=== PATIENT | female | born 1935 | race American Indian/Alaskan Native ===

== ENCOUNTER 2016-05-22 12:21 | Emergency (ER) | payer MEDICARE ==
[2016-05-22 13:15] LABS: Hematocrit 37.8 % (30.3-42.9); Hemoglobin 12.5 gm/dl (10.1-14.3); Mean Corpuscular HGB Conc 33 % (30-34); Mean Corpuscular Hemoglobin 32 pg (28-32); Mean Corpuscular Volume 96 fl (79-97); Platelet Count 118 K/mm3 (140-440); Red Blood Count 3.96 M/mm3 (3.65-5.03); Red Cell Distribution Width 13.9 % (13.2-15.2)
[2016-05-22 13:36] LABS: Alanine Aminotransferase 14 units/L (7-56); Albumin 3.9 g/dL (3.9-5); Albumin/Globulin Ratio 1.3 %; Alkaline Phosphatase 110 units/L (35-129); Anion Gap 18 mmol/L; BUN/Creatinine Ratio 15.71; Bilirubin,Total 0.7 mg/dL (0.1-1.2); Blood Urea Nitrogen 11 mg/dL (7-17); Calcium 8.8 mg/dL (8.4-10.2); Carbon Dioxide 24 mmol/L (22-30); Chloride 101.3 mmol/L (98-107); Glucose 142 mg/dL (65-100); Lipase 14 units/L (13-60); Potassium 3.9 mmol/L (3.6-5.0); Sodium 139 mmol/L (137-145); Total Protein 6.9 g/dL (6.3-8.2)
--- NOTE | 2016-05-22 13:47 | XRay Report ---
CHEST 2 VIEWS INDICATION: Cough, fever. COMPARISON: 05/17/2016 FINDINGS: Frontal and lateral chest radiographs again demonstrate limited inspiration and mild exaggerated cardiomediastinal silhouette. Slight fluid or thickening along the right minor fissure again noted. Mild bibasilar atelectasis. Aortic knob calcifications. No significant pleural effusions or CHF. Demineralized bones with moderate thoracic spine degenerative changes. CONCLUSION: No significant acute chest process or interval change, as described. Thank you for the opportunity to participate in this patient's care.
[2016-05-22 14:10] LABS: Anisocytosis 1+; Basophils % (Manual) 0 % (0.0-1.8); Blastocytes % (Manual) 0 %; Diff Status Complete; Eosinophils % (Manual) 0 % (0.0-4.3)
[2016-05-22] MEDS ORDERED: NORMODYNE IV ONE (20:12)
[2016-05-22] MEDS ORDERED: TYLENOL PO ONE (20:13)
--- NOTE | 2016-05-22 20:54 | Emergency Department Report ---
HPI - General Chief Complaint: Chest Pain Time Seen by Provider: 05/22/16 19:49 - HPI HPI: This is a 80-year-old Afro-[place] female presents the emergency department with the complaint of a one-week history of lower abdominal discomfort. It is associated with some nausea and vomiting. Through triage patient complain more of some generalized fatigue, a productive cough and some chest discomfort. However when I asked the patient about that she says that it is "every once in a while" and that she has "given up on that." Patient presents with a fever admits to feeling feverish with chills and sweats but has not checked her temperature. She has a past medical history of arthritis, asthma, diabetes, GERD, hypertension. She presents with very elevated blood pressure but says that she has been compliant with her medications. She does not currently have a primary care doctor. No recent travel or sick contacts at home. ED Past Medical Hx - Past Medical History Hx Hypertension: Yes Hx Heart Attack/AMI: No Hx Congestive Heart Failure: No Hx Diabetes: Yes Hx Deep Vein Thrombosis: No Hx Pulmonary Embolism: No Hx GERD: Yes Hx Liver Disease: No Hx Renal Disease: No Hx Sickle Cell Disease: No Hx Arthritis: Yes Hx Kidney Stones: No Hx Asthma: Yes Hx COPD: No Hx Tuberculosis: No Hx HIV: No Additional medical history: has had transfusions in the past, Gi bleed - Surgical History Hx Coronary Stent: Yes Hx Open Heart Surgery: No Hx Pacemaker: No Hx Internal Defibrillator: No Hx Cholecystectomy: No Hx Appendectomy: No Hx Breast Surgery: No Additional Surgical History: hysterectomy, bilateral knee surgery, - Social History Smoking Status: Never Smoker Substance Use Type: None - Medications Home Medications: Home Medications Medication Instructions Recorded Confirmed Last Taken Type Nitroglycerin [Nitrostat] 0.4 mg SUBLINGUAL Q5MIN PRN 07/16/13 04/01/16 History Latanoprost 0.005% [Xalatan 0.005%] 1 drop OU QPM 10/23/13 04/01/16 06/22/14 History Budesonide [Pulmicort Respules] 0.5 mg IH Q12HRT #30 nebu 02/12/15 04/01/16 Unknown Rx oxyCODONE /ACETAMINOPHEN [Percocet 1 tab PO Q6H PRN #14 tablet 02/12/15 Unknown Rx 5/325 mg] Atenolol [Tenormin] 25 mg PO BID #60 tablet 10/03/15 04/01/16 Unknown Rx Clopidogrel Bisulfate [Plavix] 75 mg PO DAILY #30 tablet 10/03/15 04/01/16 Unknown Rx Famotidine [Pepcid] 20 mg PO BID #60 tablet 10/03/15 04/01/16 Unknown Rx ISOSORBIDE MONOnitrate [Imdur ER] 60 mg PO QDAY #30 tablet 10/03/15 05/17/16 Unknown Rx Insulin NPH/Regular [NovoLIN 70/30] 20 unit SUB-Q BID #30 cc 10/03/15 04/01/16 Unknown Rx Lisinopril [Zestril TAB] 20 mg PO QDAY #30 tablet 10/03/15 04/01/16 Unknown Rx Ciprofloxacin HCl [Ciprofloxacin 500 mg PO Q12H #10 tab 02/06/16 04/01/16 Unknown Rx TAB] metroNIDAZOLE [Flagyl TAB] 500 mg PO Q8HR #15 tablet 02/06/16 05/17/16 Unknown Rx AtorvaSTATin [Lipitor] 40 mg PO QHS #30 tablet 04/02/16 Unknown Rx HYDROcodone/APAP 5-325 [[place] 1 each PO Q6HR PRN #14 tablet 05/18/16 Unknown Rx 5/325] Pantoprazole [Protonix TAB] 40 mg PO QDAY #30 tablet 05/18/16 Unknown Rx Promethazine [Phenergan TAB] 25 mg PO Q6HR PRN #20 tab 05/18/16 Unknown Rx ED Review of Systems ROS: Stated complaint: DIZZINESS/CHEST PAINS Other details as noted in HPI Constitutional: chills, fever Eyes: denies: eye pain, eye discharge, vision change ENT: denies: ear pain, throat pain Respiratory: cough. denies: orthopnea Cardiovascular: chest pain. denies: edema Gastrointestinal: abdominal pain, nausea, vomiting Genitourinary: denies: urgency, dysuria, discharge Musculoskeletal: denies: back pain, joint swelling, arthralgia Skin: denies: rash, lesions Neurological: denies: headache, numbness Physical Exam - Physical Exam Vital Signs: Vital Signs 05/22/16 12:52 Temperature 101.4 F H Pulse Rate 90 Respiratory 20 Rate Blood Pressure 171/92 O2 Sat by Pulse 99 Oximetry Physical Exam: GENERAL: The patient is well-developed well-nourished. HEENT: Normocephalic. Atraumatic. Extraocular motions are intact. Patient has moist mucous membranes. Pupils equal reactive to light bilaterally. NECK: Supple. Trachea is midline. CHEST/LUNGS: Clear to auscultation. There is no respiratory distress noted. HEART/CARDIOVASCULAR: Regular. There is no tachycardia. There is no gallop rub or murmur. ABDOMEN: Abdomen is soft. Mild reproducible lower quadrant abdominal tenderness to palpation. No guarding or rebound tenderness. No peritoneal signs. Patient has normal bowel sounds. There is no abdominal distention. SKIN: Warm and dry. NEURO: The patient is awake, alert, and oriented. The patient is cooperative. The patient has no focal neurologic deficits. The patient has normal speech and gait. MUSCULOSKELETAL: There is no tenderness or deformity. There is no limitation range of motion. There is no evidence of acute injury. ED Course Vital Signs 05/22/16 12:52 Temperature 101.4 F H Pulse Rate 90 Respiratory 20 Rate Blood Pressure 171/92 O2 Sat by Pulse 99 Oximetry ED Medical Decision Making - Lab Data Result diagrams: 05/22/16 13:05 05/22/16 13:05 - EKG Data -: EKG Interpreted by Me EKG shows normal: sinus rhythm, axis, intervals, QRS complexes, ST-T waves (T- wave inversions to the lateral leads) Rate: normal - EKG Data When compared to previous EKG there are: no significant change Interpretation: unchanged when compared t (05/17/16) - Radiology Data Radiology results: report reviewed, image reviewed interpreted by me: Chest x-ray did not show any acute process. Heart is normal shape and size. No effusions. No pneumothorax. No signs of pneumonia seen. Abdominal x-ray does not show any acute process. Nonobstructive non-specific bowel gas. CT of the abdomen and pelvis without contrast shows diverticulosis. There is a normal-appearing appendix. There is not evidence of any bowel change. No free fluid or inflammatory changes seen in the abdomen or pelvis. Subsequent centimeters soft tissue nodular focus is seen in the left breast. This would be better correlated with dedicated mammography. - Medical Decision Making 80-year-old female presents to the emergency department with acute on chronic chest discomfort that is more of a burning sensation, as well as some lower abdominal discomfort. Regarding the patient's chest pain, she was just here 6 days ago with similar symptoms and was diagnosed with GERD. In the past year the patient has had a stable heart catheterization, negative stress test and had a cardio consultation less than 2 months ago during an admission here. She follows with Dr. De Paz. She does not have any shortness of breath. She has had negative troponins 3. EKG does not show any signs of ST elevation SD. Regarding the patient's abdominal pain, it is lower abdomen discomfort and reproducible to palpation. Patient's labs have been mostly unremarkable. Normal belly labs and no urinary tract infection. Patient had a CT of the abdomen and pelvis that shows diverticulosis but otherwise no acute intra- abdominal or pelvic pathology. Patient did have a fever with a MAXIMUM TEMPERATURE of 101 when she first arrived. She was given some Tylenol and has come down to a normal level. There is no focus of fever seen on physical exam and no etiology found with the labs or imaging. Patient is been reevaluated multiple times for multiple hours and says she is feeling much better. Vital signs stable throughout her ED course. Patient be discharged home to follow-up with her primary care doctor and her market research assistant. She will return to the ER with any worsening or symptoms or any acute distress. - Differential Diagnosis GERD, SD, costochondritis, colitis, diverticulitis, pneumonia Critical Care Time: No Critical care attestation.: If time is entered above; I have spent that time in minutes in the direct care of this critically ill patient, excluding procedure time. ED Disposition Clinical Impression: Abdominal pain Qualifiers: Abdominal location: generalized Qualified Code(s): R10.84 - Generalized abdominal pain GERD (gastroesophageal reflux disease) Qualifiers: Esophagitis presence: esophagitis presence not specified Qualified Code(s): K21.9 - Gastro-esophageal reflux disease without esophagitis HTN (hypertension) Qualifiers: Hypertension type: essential hypertension Qualified Code(s): I10 - Essential ( primary) hypertension Disposition: DISCHARGED TO HOME OR SELFCARE Is pt being admited?: No Condition: Stable Instructions: Chest Pain (ED), Gastroesophageal Reflux Disease (ED), Hypertension (ED) Additional Instructions: Please follow-up with your primary care doctor and her market research assistant in the next few days. Return to the emergency department with any worsening of her symptoms or any acute distress. Referrals: PRIMARY CARE, [Primary Care Provider] - 3-5 Days MISA DE PAZ MD [Staff Physician] - 3-5 Days Time of Disposition: 00:36
[2016-05-22 22:23] LABS: Bilirubin,Urine NEG (Negative); Blood,Urine NEG (Negative); Ketones,Urine 20 mg/dL (Negative); Leukocyte Esterase,Urine NEG (Negative); Mucus,Urine FEW /HPF; Nitrite,Urine NEG (Negative); Urobilinogen,Urine < 2.0 mg/dL (<2.0); WBC,Urine < 1.0 /HPF (0.0-6.0)
[2016-05-22] MEDS ORDERED: NACL ONE (23:09)
--- NOTE | 2016-05-23 00:05 | Cat Scan Report ---
FINAL REPORT EXAM: CT ABDOMEN PELVIS WO CON HISTORY: Abd pain TECHNIQUE: Serial axial images through the abdomen and pelvis with coronal and sagittal reconstruction. PRIORS: CT scan from 02/03/2016 FINDINGS: Linear densities are seen in the lung bases, consistent with scarring or atelectasis. No pleural effusion is seen. There is an 8 millimeter soft tissue nodule in the left breast. This can be seen in series 3, image 38. Punctate calcified granulomata are seen in the hepatic parenchyma. Gallbladder appears normal. Pancreas appears normal. Spleen appears normal. Adrenal glands appear normal. Contrast media is seen in the renal collecting systems, bilaterally. No focal renal lesion is identified. Aorta is normal in caliber. Bladder appears normal. Uterus is absent. No free fluid. Appendix appears normal. Scattered diverticula are seen arising from the colon. No free fluid. Degenerative changes are seen in the spine. IMPRESSION: 1. Diverticulosis. 2. Normal-appearing appendix. 3. There is not evidence of bowel obstruction. 4. No free fluid or inflammatory changes are seen in the abdomen or pelvis. 5. Subcentimeter soft tissue nodular focus is seen in the left breast. This is incompletely evaluated in this study. This can be correlated with dedicated mammography studies if indicated.
[2016-05-23 00:36] VITALS: BP 169/61
--- NOTE | 2016-05-23 10:04 | XRay Report ---
ABDOMINAL SERIES THREE VIEWS: 05/22/16 12:21:00 CLINICAL: Abdominal pain. COMPARISON: 12/29/13 FINDINGS: Supine and upright views demonstrate a normal bowel gas pattern with a moderate volume of stool in the rectum. Air-filled but nondistended loops of small bowel and transverse colon. No pneumoperitoneum. No mass or suspicious calcifications. Degenerative change in the spine. IMPRESSION: Negative abdomen with moderate distal stool.
== END 2016-05-23 05:41 | disposition home or self-care (01) ==
LOC: ED 12:21
DX: R10.84 Generalized abdominal pain (principal); K21.9 Gastro-esophageal reflux disease without esophagitis; I10 Essential (primary) hypertension; E11.9 Type 2 diabetes mellitus without complications; M19.90 Unspecified osteoarthritis, unspecified site; J45.909 Unspecified asthma, uncomplicated; Z90.710 Acquired absence of both cervix and uterus
CPT/HCPCS: 36415; 71020; 74020; 74176; 80053; 81001; 83690; 84484; 85007; 85025; 87400; 93005; 93010; 96374; 99285; Q9967

== ENCOUNTER 2016-08-20 23:50 | Emergency (ER) | payer MEDICARE ==
[2016-08-21 02:01] LABS: Bilirubin,Urine NEG (Negative); Blood,Urine NEG (Negative); Ketones,Urine NEG (Negative); Leukocyte Esterase,Urine NEG (Negative); Mucus,Urine FEW /HPF; Nitrite,Urine NEG (Negative); Protein,Urine <15 mg/dL mg/dL (Negative); Urobilinogen,Urine < 2.0 mg/dL (<2.0)
[2016-08-21 02:19] LABS: Basophils % (Auto) 0.6 % (0.0-1.8); Eosinophils % (Auto) 0.1 % (0.0-4.3); Hematocrit 42.6 % (30.3-42.9); Hemoglobin 13.9 gm/dl (10.1-14.3); Mean Corpuscular HGB Conc 33 % (30-34); Mean Corpuscular Hemoglobin 32 pg (28-32); Mean Corpuscular Volume 99 fl (79-97); Platelet Count 156 K/mm3 (140-440); Red Blood Count 4.28 M/mm3 (3.65-5.03); Red Cell Distribution Width 12.2 % (13.2-15.2)
[2016-08-21 02:32] LABS: Alanine Aminotransferase 13 units/L (7-56); Albumin 4.1 g/dL (3.9-5); Albumin/Globulin Ratio 1.1 %; Alkaline Phosphatase 96 units/L (35-129); Anion Gap 19 mmol/L; BUN/Creatinine Ratio 24.28; Blood Urea Nitrogen 17 mg/dL (7-17); Calcium 9.4 mg/dL (8.4-10.2); Carbon Dioxide 23 mmol/L (22-30); Chloride 103.8 mmol/L (98-107); Glucose 79 mg/dL (65-100); Lipase 17 units/L (13-60); Potassium 3.9 mmol/L (3.6-5.0); Sodium 142 mmol/L (137-145); Total Protein 7.7 g/dL (6.3-8.2)
[2016-08-21 05:29] VITALS: BP 164/78
--- NOTE | 2016-08-21 05:56 | Ultrasound Report ---
FINAL REPORT PROCEDURE: US ABDOMEN COMPLETE TECHNIQUE: Real-time sonography in multiple planes of the abdomen was performed with image documentation. CPT 59312 HISTORY: abd pain COMPARISON: No prior studies are available for comparison. FINDINGS: Liver: Normal size and echotexture with no evidence of cystic or solid mass lesions. Gallbladder: Fluid filled. No gallstones, wall thickening, pericholecystic fluid, or sonographic Cox's sign. Intrahepatic bile ducts: Normal caliber . Extrahepatic bile ducts: The common bile duct measures 2 millimeters. Pancreas: Normal as visualized with suboptimal depiction of the pancreatic tail. Aorta: Visualized portions appear normal. IVC: Visualized portions appear normal. RIGHT kidney: Normal echotexture. No focal renal mass, calculus, or hydronephrosis. Length: 8.1cm. LEFT kidney: Normal echotexture. No focal renal mass, calculus, or hydronephrosis . Length: 9.7cm. Spleen: Normal size and echotexture. No focal lesions. Intraperitoneal fluid: None . Other: None . IMPRESSION: Normal Examination.
--- NOTE | 2016-08-21 05:57 | Emergency Department Report ---
HPI - General Chief Complaint: Abdominal Pain Time Seen by Provider: 08/21/16 01:12 - HPI HPI: This is an 81-year-old Afro-Iranian female presents to the emergency department with the complaint of epigastric abdominal pain for the past 3 weeks. She says that there is been 2 days of nausea and vomiting. She took some Tylenol for discomfort without much relief. She has a past medical history of asthma, diabetes, GERD, hypertension. Just complains of some low back discomfort. There is been no trauma. She denies any problems with bowel or bladder, numbness or paresthesias or any neurological deficits. Patient came by EMS. She has a primary care doctor but cannot currently remember their name. No recent travel or sick contacts at home. ED Past Medical Hx - Past Medical History Previous Medical History?: Yes Hx Hypertension: Yes Hx Heart Attack/AMI: No Hx Congestive Heart Failure: No Hx Diabetes: Yes Hx Deep Vein Thrombosis: No Hx Pulmonary Embolism: No Hx GERD: Yes Hx Liver Disease: No Hx Renal Disease: No Hx Sickle Cell Disease: No Hx Arthritis: Yes Hx Kidney Stones: No Hx Asthma: Yes Hx COPD: No Hx Tuberculosis: No Hx HIV: No Additional medical history: has had transfusions in the past, Gi bleed - Surgical History Past Surgical History?: Yes Hx Coronary Stent: Yes Hx Open Heart Surgery: No Hx Pacemaker: No Hx Internal Defibrillator: No Hx Cholecystectomy: No Hx Appendectomy: No Hx Breast Surgery: No Additional Surgical History: hysterectomy, bilateral knee surgery, - Social History Smoking Status: Never Smoker Substance Use Type: None - Medications Home Medications: Home Medications Medication Instructions Recorded Confirmed Last Taken Type Nitroglycerin [Nitrostat] 0.4 mg SUBLINGUAL Q5MIN PRN 07/16/13 04/01/16 History Latanoprost 0.005% [Xalatan 0.005%] 1 drop OU QPM 10/23/13 04/01/16 06/22/14 History Budesonide [Pulmicort Respules] 0.5 mg IH Q12HRT #30 nebu 02/12/15 04/01/16 Unknown Rx oxyCODONE /ACETAMINOPHEN [Percocet 1 tab PO Q6H PRN #14 tablet 02/12/15 Unknown Rx 5/325 mg] Atenolol [Tenormin] 25 mg PO BID #60 tablet 10/03/15 04/01/16 Unknown Rx Clopidogrel Bisulfate [Plavix] 75 mg PO DAILY #30 tablet 10/03/15 04/01/16 Unknown Rx Famotidine [Pepcid] 20 mg PO BID #60 tablet 10/03/15 04/01/16 Unknown Rx ISOSORBIDE MONOnitrate [Imdur ER] 60 mg PO QDAY #30 tablet 10/03/15 05/17/16 Unknown Rx Insulin NPH/Regular [NovoLIN 70/30] 20 unit SUB-Q BID #30 cc 10/03/15 04/01/16 Unknown Rx Lisinopril [Zestril TAB] 20 mg PO QDAY #30 tablet 10/03/15 04/01/16 Unknown Rx Ciprofloxacin HCl [Ciprofloxacin 500 mg PO Q12H #10 tab 02/06/16 04/01/16 Unknown Rx TAB] metroNIDAZOLE [Flagyl TAB] 500 mg PO Q8HR #15 tablet 02/06/16 05/17/16 Unknown Rx AtorvaSTATin [Lipitor] 40 mg PO QHS #30 tablet 04/02/16 Unknown Rx HYDROcodone/APAP 5-325 [[place] 1 each PO Q6HR PRN #14 tablet 05/18/16 Unknown Rx 5/325] Pantoprazole [Protonix TAB] 40 mg PO QDAY #30 tablet 05/18/16 Unknown Rx Promethazine [Phenergan TAB] 25 mg PO Q6HR PRN #20 tab 05/18/16 Unknown Rx ED Review of Systems ROS: Stated complaint: ABD/BACK PAIN Other details as noted in HPI Comment: All other systems reviewed and negative Constitutional: denies: chills, fever Eyes: denies: eye pain, eye discharge, vision change ENT: denies: ear pain, throat pain Respiratory: denies: cough, shortness of breath, wheezing Cardiovascular: denies: chest pain, palpitations Gastrointestinal: abdominal pain, nausea, vomiting Genitourinary: denies: urgency, dysuria, discharge Musculoskeletal: back pain. denies: arthralgia Skin: denies: rash, lesions Neurological: denies: headache, weakness, paresthesias Physical Exam - Physical Exam Vital Signs: Vital Signs 08/21/16 08/21/16 08/21/16 00:24 00:45 01:26 Temperature 98.4 F 98.3 F Pulse Rate 60 67 Respiratory 18 16 12 Rate Blood Pressure 200/110 Blood Pressure 185/83 [Left] O2 Sat by Pulse 100 99 97 Oximetry 08/21/16 05:28 Temperature Pulse Rate 62 Respiratory 14 Rate Blood Pressure Blood Pressure 164/78 [Left] O2 Sat by Pulse 100 Oximetry Physical Exam: GENERAL: The patient is well-developed well-nourished. HEENT: Normocephalic. Atraumatic. Extraocular motions are intact. Patient has moist mucous membranes. Pupils equal reactive to light bilaterally. NECK: Supple. Trachea is midline. CHEST/LUNGS: Clear to auscultation. There is no respiratory distress noted. HEART/CARDIOVASCULAR: Regular. There is no tachycardia. There is no gallop rub or murmur. ABDOMEN: Abdomen is soft. There is some tenderness to palpation to the epigastric region of the abdomen. No guarding or rebound tenderness. Patient has normal bowel sounds. There is no abdominal distention. SKIN: There is no rash. There is no edema. There is no diaphoresis. NEURO: The patient is awake, alert, and oriented. The patient is cooperative. The patient has no focal neurologic deficits. The patient has normal speech. MUSCULOSKELETAL: There is no tenderness or deformity. There is no limitation range of motion. There is no evidence of acute injury. Muscle strength 5 out of 5 upper and lower extremity bilaterally. BACK: No midline thoracic or lumbar tenderness to palpation or deformity. ED Course Vital Signs 08/21/16 08/21/16 08/21/16 00:24 00:45 01:26 Temperature 98.4 F 98.3 F Pulse Rate 60 67 Respiratory 18 16 12 Rate Blood Pressure 200/110 Blood Pressure 185/83 [Left] O2 Sat by Pulse 100 99 97 Oximetry 08/21/16 05:28 Temperature Pulse Rate 62 Respiratory 14 Rate Blood Pressure Blood Pressure 164/78 [Left] O2 Sat by Pulse 100 Oximetry ED Medical Decision Making - Lab Data Result diagrams: 08/21/16 01:45 08/21/16 01:45 - Radiology Data Radiology results: report reviewed, image reviewed interpreted by me: Chest x-ray did not show any acute process. Heart is normal shape and size. No effusions. No pneumothorax. No signs of pneumonia seen. X-ray of the abdomen shows some stool but otherwise no acute process. Abdominal ultrasound was read by radiology as being a normal examination. - Medical Decision Making 81-year-old female presents with 3 week history of some abdominal pain in the epigastric region and occasionally some back discomfort. Patient walked in here and did not appear unstable. At first the patient was unsure why she even came into the hospital but then was able to say that it was for abdominal pain. Her labs are unremarkable including no signs of infection in the blood or urine, electrolyte abnormalities or renal insufficiency. She has normal belly labs including lipase, LFTs and bilirubin. There was a chest and abdominal x- ray that did not show any acute process. The patient had recent CTs of the abdomen and pelvis so an abdominal ultrasound was done this time that came back as read by radiology as a normal examination. The patient was reevaluated multiple times for multiple hours and is resting comfortably. When asked if she is feeling she just says she is tired and asking for discharge home. She's been encouraged to follow-up with her primary care physician and return with any worsening of her symptoms or any acute distress. Critical Care Time: No Critical care attestation.: If time is entered above; I have spent that time in minutes in the direct care of this critically ill patient, excluding procedure time. ED Disposition Clinical Impression: Abdominal pain Qualifiers: Abdominal location: epigastric Qualified Code(s): R10.13 - Epigastric pain Back pain Qualifiers: Back pain location: low back pain Chronicity: unspecified Back pain laterality : bilateral Sciatica presence: without sciatica Qualified Code(s): M54.5 - Low back pain Hypertension Qualifiers: Hypertension type: essential hypertension Qualified Code(s): I10 - Essential ( primary) hypertension Disposition: TO HOME OR SELFCARE Is pt being admited?: No Condition: Stable Instructions: Abdominal Pain (ED), Hypertension (ED), Back Pain (ED) Additional Instructions: Please follow-up with your primary care doctor in the next few days. Return to the emergency department with any worsening of her symptoms, chest pain or shortness of breath, or any acute distress. Referrals: PRIMARY CARE, [Primary Care Provider] - [facility] Time of Disposition: 06:00
--- NOTE | 2016-08-21 09:07 | XRay Report ---
ABDOMINAL SERIES INDICATION: Abdomen pain for 3 days. Vomiting. Chest pain. COMPARISON: 05/22/2016. FINDINGS: Abdominal series, three radiographs, demonstrate overall nonobstructive bowel gas pattern. Few air containing small bowel loops in the right lower quadrant again measure approximately 1.3 cm caliber. Mild to moderate colonic stool/possible constipation. No focal suspicious ossifications, pneumatosis or pneumoperitoneum. Accompanying chest radiograph demonstrates stable cardiomediastinal silhouette, aortic knob calcifications and midlung mild horizontal scarring and pleural thickening/fluid along the right minor fissure. Demineralized bones with multilevel spinal degenerative changes. CONCLUSION: No acute radiographic abnormality with various incidental findings, as above. Thank you for the opportunity to participate in this patient's care.
== END 2016-08-21 06:51 | disposition home or self-care (01) ==
LOC: ED 23:50
DX: R10.13 Epigastric pain (principal); M54.5 Low back pain; I10 Essential (primary) hypertension; E11.9 Type 2 diabetes mellitus without complications; K21.9 Gastro-esophageal reflux disease without esophagitis; J45.909 Unspecified asthma, uncomplicated
CPT/HCPCS: 36415; 74022; 76700; 80053; 81001; 82140; 83690; 84484; 85025; 99284

== ENCOUNTER 2016-12-07 19:33 | Emergency (ER) | payer MEDICARE ==
[2016-12-07 20:56] LABS: Basophils % (Auto) 0.5 % (0.0-1.8); Eosinophils % (Auto) 0.5 % (0.0-4.3); Hematocrit 40.2 % (30.3-42.9); Hemoglobin 13.3 gm/dl (10.1-14.3); Mean Corpuscular HGB Conc 33 % (30-34); Mean Corpuscular Hemoglobin 33 pg (28-32); Mean Corpuscular Volume 99 fl (79-97); Platelet Count 159 K/mm3 (140-440); Red Blood Count 4.08 M/mm3 (3.65-5.03); White Blood Count 4.4 K/mm3 (4.5-11.0)
[2016-12-07 21:01] LABS: Alanine Aminotransferase 10 units/L (7-56); Albumin 3.8 g/dL (3.9-5); Albumin/Globulin Ratio 1.1 %; Alkaline Phosphatase 97 units/L (35-129); Anion Gap 18 mmol/L; Blood Urea Nitrogen 16 mg/dL (7-17); Calcium 9.3 mg/dL (8.4-10.2); Carbon Dioxide 22 mmol/L (22-30); Glucose 153 mg/dL (65-100); Lipase 25 units/L (13-60); Sodium 142 mmol/L (137-145); Total Protein 7.3 g/dL (6.3-8.2)
[2016-12-07 21:06] LABS: INR 0.99 (0.87-1.13)
[2016-12-07 21:07] LABS: Partial Thromboplastin Time 28.2 Sec. (24.2-36.6)
[2016-12-08] MEDS ORDERED: BENTYL PO ONE (02:52)
[2016-12-08] MEDS ORDERED: CARAFATE PO ONE (02:52)
[2016-12-08] MEDS ORDERED: PEPCID PO ONE (02:52)
[2016-12-08] MEDS ORDERED: ALUM-MAG HYDROX-SIMETH 200-200-20MG/5ML PO ONE (02:52)
--- NOTE | 2016-12-08 02:53 | Emergency Department Report ---
ED General Adult HPI - General Chief complaint: Chest Pain Stated complaint: CP & BLOOD IN STOOL Time Seen by Provider: 12/08/16 02:08 Source: patient, family, RN notes reviewed, old records reviewed Mode of arrival: Ambulatory Limitations: Other (patient is a poor historian) - History of Present Illness Initial comments: This is an 81-year-old female. I have previously evaluated this patient. Cardiology: Dr. Flynn Gastroenterology: Dr. Carmela moreno Past medical history: Diverticulosis, diabetes, hypertension, cardiac catheterization September 2015 demonstrated a patent left main, LAD mid stents patent , circumflex patent, OM1 and OM 2 patent, RCA patent with mild luminal irregularities, PDA and PLB patent with mild luminal irregularities, normal LV function Patient presents to the ER with 2 complaints. Her first complaint is chest pain. The chest pain is central. It has been present for 2-3 weeks. To the back, arms or neck. Patient denies vomiting and shortness of breath as well as diaphoresis. The patient cannot describe exacerbating or relieving factors. She endorses no leg pain, no leg swelling, no recent trips greater than 4 hours, and no recent hospital admissions. The patient reports that she saw bright red blood per rectum a few days ago. As per review of old medical records, she has a long history of diverticular bleeding, and a colonoscopy in 2014 demonstrated left-sided diverticulosis and polyps, which were removed. Patient denies irritative and obstructive urinary symptoms. Patient also complains of abdominal pain and cramping which has been present for 3 weeks. She cannot describe the nature of the pain, radiation, exacerbating or relieving factors. -: Gradual Location: chest, abdomen Severity scale (0 -10): 8 Improves with: other (as per history of present illness) Worsens with: other (as per history of present illness) Associated Symptoms: chest pain - Related Data Home Medications Medication Instructions Recorded Confirmed Last Taken Nitroglycerin [Nitrostat] 0.4 mg SUBLINGUAL Q5MIN PRN 07/16/13 04/01/16 06/22/14 Latanoprost 0.005% [Xalatan 0.005%] 1 drop OU QPM 10/23/13 04/01/16 06/22/14 Previous Rx's Medication Instructions Recorded Last Taken Type Budesonide [Pulmicort Respules] 0.5 mg IH Q12HRT #30 nebu 02/12/15 Unknown Rx oxyCODONE /ACETAMINOPHEN [Percocet 1 tab PO Q6H PRN #14 tablet 02/12/15 Unknown Rx 5/325 mg] Atenolol [Tenormin] 25 mg PO BID #60 tablet 10/03/15 Unknown Rx Clopidogrel Bisulfate [Plavix] 75 mg PO DAILY #30 tablet 10/03/15 Unknown Rx Famotidine [Pepcid] 20 mg PO BID #60 tablet 10/03/15 Unknown Rx ISOSORBIDE MONOnitrate [Imdur ER] 60 mg PO QDAY #30 tablet 10/03/15 Unknown Rx Insulin NPH/Regular [NovoLIN 70/30] 20 unit SUB-Q BID #30 cc 10/03/15 Unknown Rx Lisinopril [Zestril TAB] 20 mg PO QDAY #30 tablet 10/03/15 Unknown Rx Ciprofloxacin HCl [Ciprofloxacin 500 mg PO Q12H #10 tab 02/06/16 Unknown Rx TAB] metroNIDAZOLE [Flagyl TAB] 500 mg PO Q8HR #15 tablet 02/06/16 Unknown Rx AtorvaSTATin [Lipitor] 40 mg PO QHS #30 tablet 04/02/16 Unknown Rx HYDROcodone/APAP 5-325 [[place] 1 each PO Q6HR PRN #14 tablet 05/18/16 Unknown Rx 5/325] Pantoprazole [Protonix TAB] 40 mg PO QDAY #30 tablet 05/18/16 Unknown Rx Promethazine [Phenergan TAB] 25 mg PO Q6HR PRN #20 tab 05/18/16 Unknown Rx Allergies Allergy/AdvReac Type Severity Reaction Status Date / Time aspirin Allergy Hives Verified 04/08/15 22:57 ED Review of Systems ROS: Stated complaint: CP & BLOOD IN STOOL Other details as noted in HPI Constitutional: denies: fever Eyes: denies: eye discharge ENT: denies: epistaxis Respiratory: see HPI Cardiovascular: chest pain Gastrointestinal: abdominal pain, hematochezia Genitourinary: denies: dysuria Musculoskeletal: arthralgia, myalgia Skin: denies: lesions Neurological: weakness ED Past Medical Hx - Past Medical History Previous Medical History?: Yes Hx Hypertension: Yes Hx Heart Attack/AMI: No Hx Congestive Heart Failure: No Hx Diabetes: Yes Hx Deep Vein Thrombosis: No Hx Pulmonary Embolism: No Hx GERD: Yes Hx Liver Disease: No Hx Renal Disease: No Hx Sickle Cell Disease: No Hx Arthritis: Yes Hx Kidney Stones: No Hx Asthma: Yes Hx COPD: No Hx Tuberculosis: No Hx Dementia: Yes Hx HIV: No Additional medical history: has had transfusions in the past, Gi bleed - Surgical History Past Surgical History?: Yes Hx Coronary Stent: Yes Hx Open Heart Surgery: No Hx Pacemaker: No Hx Internal Defibrillator: No Hx Cholecystectomy: No Hx Appendectomy: No Hx Breast Surgery: No Additional Surgical History: hysterectomy, bilateral knee surgery, - Social History Smoking Status: Never Smoker Substance Use Type: None - Medications Home Medications: Home Medications Medication Instructions Recorded Confirmed Last Taken Type Nitroglycerin [Nitrostat] 0.4 mg SUBLINGUAL Q5MIN PRN 07/16/13 04/01/16 History Latanoprost 0.005% [Xalatan 0.005%] 1 drop OU QPM 10/23/13 04/01/16 06/22/14 History Budesonide [Pulmicort Respules] 0.5 mg IH Q12HRT #30 nebu 02/12/15 04/01/16 Unknown Rx oxyCODONE /ACETAMINOPHEN [Percocet 1 tab PO Q6H PRN #14 tablet 02/12/15 Unknown Rx 5/325 mg] Atenolol [Tenormin] 25 mg PO BID #60 tablet 10/03/15 04/01/16 Unknown Rx Clopidogrel Bisulfate [Plavix] 75 mg PO DAILY #30 tablet 10/03/15 04/01/16 Unknown Rx Famotidine [Pepcid] 20 mg PO BID #60 tablet 10/03/15 04/01/16 Unknown Rx ISOSORBIDE MONOnitrate [Imdur ER] 60 mg PO QDAY #30 tablet 10/03/15 05/17/16 Unknown Rx Insulin NPH/Regular [NovoLIN 70/30] 20 unit SUB-Q BID #30 cc 10/03/15 04/01/16 Unknown Rx Lisinopril [Zestril TAB] 20 mg PO QDAY #30 tablet 10/03/15 04/01/16 Unknown Rx Ciprofloxacin HCl [Ciprofloxacin 500 mg PO Q12H #10 tab 02/06/16 04/01/16 Unknown Rx TAB] metroNIDAZOLE [Flagyl TAB] 500 mg PO Q8HR #15 tablet 02/06/16 05/17/16 Unknown Rx AtorvaSTATin [Lipitor] 40 mg PO QHS #30 tablet 04/02/16 Unknown Rx HYDROcodone/APAP 5-325 [[place] 1 each PO Q6HR PRN #14 tablet 05/18/16 Unknown Rx 5/325] Pantoprazole [Protonix TAB] 40 mg PO QDAY #30 tablet 05/18/16 Unknown Rx Promethazine [Phenergan TAB] 25 mg PO Q6HR PRN #20 tab 05/18/16 Unknown Rx ED Physical Exam - General Limitations: Other (patient is a poor historian) General appearance: alert, in no apparent distress - Head Head exam: Present: atraumatic, normocephalic - Eye Eye exam: Present: normal appearance, EOMI. Absent: nystagmus - ENT ENT exam: Present: normal exam, normal orophraynx, mucous membranes moist, normal external ear exam - Neck Neck exam: Present: normal inspection, full ROM. Absent: tenderness, meningismus - Respiratory Respiratory exam: Present: normal lung sounds bilaterally. Absent: respiratory distress, wheezes, rales, rhonchi, stridor, chest wall tenderness, accessory muscle use, decreased breath sounds, prolonged expiratory - Cardiovascular Cardiovascular Exam: Present: regular rate, normal rhythm, normal heart sounds. Absent: bradycardia, tachycardia, irregular rhythm, systolic murmur, diastolic murmur, rubs, gallop - GI/Abdominal GI/Abdominal exam: Present: soft, normal bowel sounds. Absent: distended, tenderness, guarding, rebound, rigid, pulsatile mass - Rectal Rectal exam: Present: normal inspection, normal rectal tone, heme (-) stool ( Brown stool that is guaiac negative) - Extremities Exam Extremities exam: Present: normal inspection, full ROM, normal capillary refill. Absent: pedal edema, joint swelling, calf tenderness - Back Exam Back exam: Present: normal inspection, full ROM. Absent: tenderness, CVA tenderness (R), CVA tenderness (L), vertebral tenderness - Neurological Exam Neurological exam: Present: alert, oriented X3, other (Extraocular movements intact. Tongue midline. No facial droop. Facial sensation intact to light touch in the V1, V2, V3 distribution bilaterally. 5 and 5 strength in 4 extremities.. Sensation is intact to light touch in 4 extremities.). Absent: motor sensory deficit - Psychiatric Psychiatric exam: Present: normal affect, normal mood - Skin Skin exam: Present: warm, dry, intact, normal color. Absent: rash ED Course Vital Signs 12/07/16 12/07/16 12/08/16 19:57 20:18 01:01 Temperature 98.5 F Pulse Rate 88 Respiratory 16 Rate Blood Pressure 170/73 197/80 O2 Sat by Pulse 100 100 Oximetry 12/08/16 12/08/16 12/08/16 01:10 01:15 01:30 Temperature Pulse Rate 66 66 66 Respiratory 18 20 19 Rate Blood Pressure 197/80 O2 Sat by Pulse 100 96 99 Oximetry 12/08/16 12/08/16 12/08/16 01:46 02:00 02:15 Temperature Pulse Rate 64 66 71 Respiratory 16 18 19 Rate Blood Pressure 166/63 166/63 167/61 O2 Sat by Pulse 99 98 99 Oximetry 12/08/16 12/08/16 12/08/16 02:30 02:46 03:00 Temperature Pulse Rate 72 111 H 93 H Respiratory 22 20 22 Rate Blood Pressure 166/63 160/89 160/89 O2 Sat by Pulse Oximetry 12/08/16 12/08/16 12/08/16 03:16 03:30 03:46 Temperature Pulse Rate 75 72 68 Respiratory 16 21 18 Rate Blood Pressure 175/101 175/101 144/122 O2 Sat by Pulse Oximetry 12/08/16 12/08/16 12/08/16 04:00 04:56 05:00 Temperature Pulse Rate 67 85 Respiratory 19 11 L Rate Blood Pressure 175/101 200/99 200/99 O2 Sat by Pulse Oximetry 12/08/16 12/08/16 05:16 05:21 Temperature Pulse Rate 81 73 Respiratory 19 Rate Blood Pressure 200/99 205/77 O2 Sat by Pulse Oximetry - Reevaluation(s) Reevaluation #1: 12/08/16 05:15 Differential diagnosis: GERD, gastritis, pneumonia, acute coronary syndrome, pericarditis, myocarditis, diverticulosis, diverticulitis, GI bleed, urinary tract infection Assessment and plan: 81-year-old female had a cardiac catheterization a little bit over a year ago, chest pain that is atypical for 2 weeks, troponin is negative multiple times, EKG with nonspecific abnormalities, however appears unchanged from prior, given 2 weeks of chest pain, I don't believe the patient requires admission to the hospital for ACS risk stratification. Low risk by well's criteria, not hypoxic, not tachycardic, I clinically do not suspect pulmonary embolus. Abdominal pain is nonspecific for 3 weeks, belly is soft and benign. Hemoglobin and hematocrit are at appropriate levels, she is guaiac-negative from below, no active bleeding on exam at this time. 12/08/16 05:18 Patient also had a negative nuclear stress test September of this year. Reevaluation #2: 12/08/16 05:49 CT scan negative for acute findings. Urinalysis negative. Patient has been in the emergency department for 10 hours without clinical decompensation. She is suitable follow-up with an outpatient physician. ED Medical Decision Making - Lab Data Result diagrams: 12/07/16 20:15 12/07/16 20:26 Vital Signs 12/07/16 12/07/16 12/08/16 19:57 20:18 01:01 Temperature 98.5 F Pulse Rate 88 Respiratory 16 Rate Blood Pressure 170/73 197/80 O2 Sat by Pulse 100 100 Oximetry 12/08/16 12/08/16 12/08/16 01:10 01:15 01:30 Temperature Pulse Rate 66 66 66 Respiratory 18 20 19 Rate Blood Pressure 197/80 O2 Sat by Pulse 100 96 99 Oximetry 12/08/16 12/08/16 12/08/16 01:46 02:00 02:15 Temperature Pulse Rate 64 66 71 Respiratory 16 18 19 Rate Blood Pressure 166/63 166/63 167/61 O2 Sat by Pulse 99 98 99 Oximetry 12/08/16 12/08/16 12/08/16 02:30 02:46 03:00 Temperature Pulse Rate 72 111 H 93 H Respiratory 22 20 22 Rate Blood Pressure 166/63 160/89 160/89 O2 Sat by Pulse Oximetry 12/08/16 12/08/16 12/08/16 03:16 03:30 03:46 Temperature Pulse Rate 75 72 68 Respiratory 16 21 18 Rate Blood Pressure 175/101 175/101 144/122 O2 Sat by Pulse Oximetry 12/08/16 12/08/16 12/08/16 04:00 04:56 05:00 Temperature Pulse Rate 67 85 Respiratory 19 11 L Rate Blood Pressure 175/101 200/99 200/99 O2 Sat by Pulse Oximetry Lab Results 12/07/16 12/07/16 12/07/16 Range/Units 20:15 20:15 20:26 WBC 4.4 L (4.5-11.0) K/mm3 RBC 4.08 (3.65-5.03) M/mm3 Hgb 13.3 (10.1-14.3) gm/dl Hct 40.2 (30.3-42.9) % MCV 99 H (79-97) fl MCH 33 H (28-32) pg MCHC 33 (30-34) % RDW 12.0 L (13.2-15.2) % Plt Count 159 (140-440) K/mm3 Lymph % (Auto) 47.6 H (13.4-35.0) % [place] % (Auto) 11.0 H (0.0-7.3) % Eos % (Auto) 0.5 (0.0-4.3) % Baso % (Auto) 0.5 (0.0-1.8) % Lymph # 2.1 (1.2-5.4) K/mm3 [place] # 0.5 (0.0-0.8) K/mm3 Eos # 0.0 (0.0-0.4) K/mm3 Baso # 0.0 (0.0-0.1) K/mm3 Seg Neutrophils % 40.4 (40.0-70.0) % Seg Neutrophils # 1.8 (1.8-7.7) K/mm3 PT 13.0 (12.2-14.9) Sec. INR 0.99 (0.87-1.13) APTT 28.2 (24.2-36.6) Sec. Sodium (137-145) mmol/L Potassium (3.6-5.0) mmol/L Chloride (98-107) mmol/L Carbon Dioxide (22-30) mmol/L Anion Gap mmol/L BUN (7-17) mg/dL Creatinine (0.7-1.2) mg/dL Estimated GFR ml/min BUN/Creatinine Ratio % Glucose (65-100) mg/dL Calcium (8.4-10.2) mg/dL Total Bilirubin (0.1-1.2) mg/dL AST (5-40) units/L ALT (7-56) units/L Alkaline Phosphatase (35-129) units/L Troponin T < 0.010 (0.00-0.029) ng/mL Total Protein (6.3-8.2) g/dL Albumin (3.9-5) g/dL Albumin/Globulin Ratio % Lipase (13-60) units/L Blood Type Antibody Screen 12/07/16 12/07/16 12/08/16 Range/Units 20:26 20:32 02:31 WBC (4.5-11.0) K/mm3 RBC (3.65-5.03) M/mm3 Hgb (10.1-14.3) gm/dl Hct (30.3-42.9) % MCV (79-97) fl MCH (28-32) pg MCHC (30-34) % RDW (13.2-15.2) % Plt Count (140-440) K/mm3 Lymph % (Auto) (13.4-35.0) % [place] % (Auto) (0.0-7.3) % Eos % (Auto) (0.0-4.3) % Baso % (Auto) (0.0-1.8) % Lymph # (1.2-5.4) K/mm3 [place] # (0.0-0.8) K/mm3 Eos # (0.0-0.4) K/mm3 Baso # (0.0-0.1) K/mm3 Seg Neutrophils % (40.0-70.0) % Seg Neutrophils # (1.8-7.7) K/mm3 PT (12.2-14.9) Sec. INR (0.87-1.13) APTT (24.2-36.6) Sec. Sodium 142 (137-145) mmol/L Potassium 4.0 (3.6-5.0) mmol/L Chloride 106.0 (98-107) mmol/L Carbon Dioxide 22 (22-30) mmol/L Anion Gap 18 mmol/L BUN 16 (7-17) mg/dL Creatinine 0.8 (0.7-1.2) mg/dL Estimated GFR > 60 ml/min BUN/Creatinine Ratio 20.00 % Glucose 153 H (65-100) mg/dL Calcium 9.3 (8.4-10.2) mg/dL Total Bilirubin 0.40 (0.1-1.2) mg/dL AST 18 (5-40) units/L ALT 10 (7-56) units/L Alkaline Phosphatase 97 (35-129) units/L Troponin T < 0.010 (0.00-0.029) ng/mL Total Protein 7.3 (6.3-8.2) g/dL Albumin 3.8 L (3.9-5) g/dL Albumin/Globulin Ratio 1.1 % Lipase 25 (13-60) units/L Blood Type O POSITIVE Antibody Screen Negative - EKG Data -: EKG Interpreted by [facility] EKG shows normal: sinus rhythm - EKG Data 12/08/16 05:18 Sinus, 86 bpm, normal axis, motion artifact, not morphologically consistent with STEMI. EKG demonstrates sinus, left ventricular hypertrophy, normal axis, 74 bpm, not morphologically consistent with STEMI, appears unchanged when compared to prior. Poor R-wave progression is noted. - Radiology Data Radiology results: report reviewed, image reviewed Critical care attestation.: If time is entered above; I have spent that time in minutes in the direct care of this critically ill patient, excluding procedure time. ED Disposition Clinical Impression: Chest pain, Abdominal pain Disposition: DC-01 TO HOME OR SELFCARE Is pt being admited?: No Does the pt Need Aspirin: No Condition: Stable Instructions: Chest Pain (ED) Additional Instructions: Continue current outpatient medications. Follow-up with your primary care doctor or tie sawyer within the next week for chest pain and hypertension/ elevated blood pressure. Make certain to take her blood pressure medications as directed. Long-term complications of poorly controlled hypertension includes stroke, heart attack, disability, , paralysis, loss of quality of life. Follow-up with your senior telecommunications consultant within the next week. Return to the ER right away with new pain, worsened pain, migration of pain, fevers, chills, lethargy, irritability, projectile vomiting, change in mental status, recurrent bright red blood per rectum. Referrals: FREDI BARROS MD [Primary Care Provider] - 3-5 Days CANDY YOST MD [Staff Physician] - 3-5 Days CARMELA MORENO MD [Staff Physician] - 3-5 Days
[2016-12-08] MEDS ORDERED: CATAPRES PO ONE (05:05)
[2016-12-08 05:33] LABS: Bacteria,Urine 1+ /HPF (Negative); Bilirubin,Urine NEG (Negative); Blood,Urine NEG (Negative); Ketones,Urine NEG (Negative); Leukocyte Esterase,Urine SM (Negative); Mucus,Urine 2+ /HPF; Nitrite,Urine NEG (Negative); Protein,Urine <15 mg/dL mg/dL (Negative); Urobilinogen,Urine < 2.0 mg/dL (<2.0)
--- NOTE | 2016-12-08 05:39 | Cat Scan Report ---
FINAL REPORT PROCEDURE: CT ABDOMEN PELVIS WO CON TECHNIQUE: Computerized axial tomography of the abdomen and pelvis was performed without intravenous contrast. This study is performed without intravascular contrast material and its sensitivity for abdominal and pelvic pathology, including neoplasms, inflammation, abscess, free fluid, thrombosis, arterial dissection and infarction, is reduced compared with a contrast enhanced study. HISTORY: abd pain COMPARISON: 05/22/2016 FINDINGS: Visualized lower thorax: No significant abnormality. Liver: Normal size and attenuation. Spleen: Normal size and attenuation. Gallbladder and biliary system: Normal. Pancreas: Normal. Adrenals: Normal. Kidneys: There is a 2 millimeter stone in the midpole the left kidney. There are no ureteral stones. There is no hydronephrosis.. GI tract: The stomach and small bowel are unremarkable. There are diverticula of the sigmoid and left colon. There is no specific evidence of acute diverticulitis. There are diverticula of the right colon and cecum. The appendix is normal.. Lymph nodes and mesentery: Normal. Vasculature: Normal. Bladder: Normal. Reproductive organs: There has been a hysterectomy.. Peritoneum: There is no ascites or free air, abscess or adenopathy.. Musculoskeletal structures: No significant abnormality. Other: None. IMPRESSION: There is a 2 millimeter stone in the midpole the left kidney. There are no ureteral stones. There is no hydronephrosis.. The stomach and small bowel are unremarkable. There are diverticula of the sigmoid and left colon. There is no specific evidence of acute diverticulitis. There are diverticula of the right colon and cecum. The appendix is normal.. There has been a hysterectomy.. There is no ascites or free air, abscess or adenopathy.. .
[2016-12-08 06:21] VITALS: BP 177/86
--- NOTE | 2016-12-08 07:17 | XRay Report ---
AP CHEST: HISTORY: chest pain AP view of the chest demonstrates a normal mediastinal and cardiac contour with clear lungs and normal bony and soft tissue structures. IMPRESSION: Unremarkable AP chest. No significant change since 10/02/16.
== END 2016-12-08 08:30 | disposition home or self-care (01) ==
LOC: ED 19:33
DX: R07.9 Chest pain, unspecified (principal); R10.9 Unspecified abdominal pain; I10 Essential (primary) hypertension; E11.9 Type 2 diabetes mellitus without complications; M19.90 Unspecified osteoarthritis, unspecified site; Z88.6 Allergy status to analgesic agent
CPT/HCPCS: 36415; 51701; 71010; 74176; 80053; 81001; 82271; 83690; 84484; 85025; 85610; 85730; 86850; 86900; 86901; 87086; 93005; 93010

== ENCOUNTER 2017-04-30 10:58 | Inpatient (IN) | payer MEDICARE ==
[2017-04-30 11:35] LABS: Basophils % (Auto) 0.5 % (0.0-1.8); Eosinophils % (Auto) 0.5 % (0.0-4.3); Hematocrit 39.4 % (30.3-42.9); Hemoglobin 13.3 gm/dl (10.1-14.3); Lymphocytes # (Auto) 1.8 K/mm3 (1.2-5.4); Mean Corpuscular HGB Conc 34 % (30-34); Mean Corpuscular Hemoglobin 34 pg (28-32); Mean Corpuscular Volume 100 fl (79-97); Monocytes # (Auto) 0.5 K/mm3 (0.0-0.8); Monocytes % (Auto) 12.6 % (0.0-7.3); Platelet Count 146 K/mm3 (140-440); Red Blood Count 3.94 M/mm3 (3.65-5.03); Red Cell Distribution Width 12.4 % (13.2-15.2)
[2017-04-30 11:48] LABS: BUN/Creatinine Ratio 24; Blood Urea Nitrogen 19 mg/dL (7-17); Hemolysis Index 8
--- NOTE | 2017-04-30 17:21 | Emergency Department Report ---
Blank Doc - Documentation Documentation: Patient is a 81-year-old black female who is a poor historian who is presenting with chest pain. When the patient is pointing to the area of pain she is asked to point to her abdomen however when asking that she has pain specifically in the chest wall is pointing to her chest she states she has pain there too. Patient states the pain is been present for the past 2-3 days as constant initially she stated that the pain is relieved with rest and lying down however she states also that the pains keep her up all night while she's lying down. Patient states she has shortness of breath as well. The patient is a poor historian and said of negative troponins per chest pain protocol for imaging I am going to do a CTA of the chest and abdomen to rule out PE aortic dissection or any other abnormality of the abdomen that may explain this pain.
[2017-04-30 19:58] LABS: Bilirubin,Urine NEG (Negative); Blood,Urine NEG (Negative); Color,Urine Yellow (Yellow); Mucus,Urine FEW /HPF; Nitrite,Urine NEG (Negative); Protein,Urine <15 mg/dL mg/dL (Negative)
--- NOTE | 2017-04-30 21:10 | Emergency Department Report ---
ED Chest Pain HPI - General Chief Complaint: Chest Pain Stated Complaint: CHEST PAIN/DIZZINESS Time Seen by Provider: 04/30/17 16:22 Source: patient Mode of arrival: Ambulatory Limitations: No Limitations - History of Present Illness Initial Comments: This is an 81 year-old female presents to the emergency department from home with a complaint of some intermittent midsternal chest pain , some upper abdominal pain, some dizziness and also says that it hurts to swallow. Symptoms began yesterday but has been going on intermittently through today as well. She did not take anything for her symptoms by presentation. She was dropped off to be seen today by her granddaughter. She has a past medical history of arthritis, asthma, dementia, diabetes, GERD, hypertension. She has a primary care doctor but cannot remember the name secondary to her dementia and is a poor historian. She denies any fever, nausea, vomiting, constipation, diarrhea. - Related Data Home Medications Medication Instructions Recorded Confirmed Last Taken Insulin NPH/Regular [NovoLIN 70/30] 20 unit SQ BIDDIAB 01/15/17 05/01/17 Previous Rx's Medication Instructions Recorded Last Taken Type Atenolol [Tenormin] 25 mg PO DAILY #30 tablet 01/19/17 04/30/17 Rx Clopidogrel [Plavix] 75 mg PO QDAY #30 tablet 01/19/17 04/30/17 Rx Pravastatin [Pravachol] 40 mg PO QHS #30 tablet 01/19/17 04/30/17 Rx Allergies Allergy/AdvReac Type Severity Reaction Status Date / Time aspirin Allergy Hives Verified 04/30/17 11:07 Heart Score - HEART Score History: Slightly suspicious EKG: Non-specific Age: > 65 Risk factors: 1-2 risk factors Troponin: < normal limit HEART Score: 4 - Critical Actions Critical Actions: 4-6 pts:12-16.6% risk of adverse cardiac event. Should be admitted ED Review of Systems ROS: Stated complaint: CHEST PAIN/DIZZINESS Other details as noted in HPI Comment: All other systems reviewed and negative Constitutional: denies: chills, fever Eyes: denies: eye pain, eye discharge, vision change ENT: denies: ear pain, throat pain Respiratory: denies: cough, shortness of breath, wheezing Cardiovascular: chest pain. denies: syncope Gastrointestinal: abdominal pain. denies: vomiting Genitourinary: denies: urgency, dysuria, discharge Musculoskeletal: denies: back pain, joint swelling, arthralgia Skin: denies: rash, lesions Neurological: denies: headache, weakness, paresthesias ED Past Medical Hx - Past Medical History Previous Medical History?: Yes Hx Hypertension: Yes Hx Diabetes: Yes Hx GERD: Yes Hx Arthritis: Yes Hx Asthma: Yes Hx Dementia: Yes Additional medical history: has had transfusions in the past, Gi bleed - Surgical History Hx Coronary Stent: Yes Additional Surgical History: hysterectomy, bilateral knee surgery, - Social History Smoking Status: Never Smoker Substance Use Type: None - Medications Home Medications: Home Medications Medication Instructions Recorded Confirmed Last Taken Type Insulin NPH/Regular [NovoLIN 70/30] 20 unit SQ BIDDIAB 01/15/17 05/01/17 History Atenolol [Tenormin] 25 mg PO DAILY #30 tablet 01/19/17 05/01/17 04/30/17 Rx Clopidogrel [Plavix] 75 mg PO QDAY #30 tablet 01/19/17 05/01/17 04/30/17 Rx Pravastatin [Pravachol] 40 mg PO QHS #30 tablet 01/19/17 05/01/17 04/30/17 Rx ED Physical Exam - General Limitations: No Limitations - Other Other exam information: GENERAL: The patient is well-developed well-nourished. HENT: Normocephalic. Atraumatic. Patient has moist mucous membranes. EYES: Extraocular motions are intact. Pupils equal reactive to light bilaterally. NECK: Supple. Trachea is midline. CHEST/LUNGS: Clear to auscultation. There is no respiratory distress noted. HEART/CARDIOVASCULAR: Regular. There is no tachycardia. There is no murmur. ABDOMEN: Abdomen is soft, nontender. Patient has normal bowel sounds. There is no abdominal distention. SKIN: Skin is warm and dry. NEURO: The patient is awake, alert. The patient is cooperative. The patient has no focal neurologic deficits. The patient has normal speech. MUSCULOSKELETAL: There is no tenderness or deformity. There is no limitation range of motion. There is no evidence of acute injury. ED Course Vital Signs 04/30/17 04/30/17 04/30/17 11:07 20:55 21:01 Temperature 98 F Pulse Rate 76 74 Respiratory 18 15 12 Rate Blood Pressure 168/76 O2 Sat by Pulse 97 Oximetry 04/30/17 04/30/17 04/30/17 21:15 21:30 21:45 Temperature Pulse Rate 63 75 67 Respiratory 17 20 14 Rate Blood Pressure 222/88 220/95 220/95 O2 Sat by Pulse 97 97 97 Oximetry 04/30/17 04/30/17 04/30/17 22:00 22:11 22:15 Temperature Pulse Rate 64 102 H 88 Respiratory 18 23 Rate Blood Pressure 209/83 222/88 209/83 O2 Sat by Pulse 97 97 Oximetry 04/30/17 04/30/17 04/30/17 22:31 23:03 23:15 Temperature Pulse Rate 71 Respiratory 9 L Rate Blood Pressure 209/83 209/83 209/83 O2 Sat by Pulse 99 97 99 Oximetry 04/30/17 05/01/17 05/01/17 23:31 00:15 00:53 Temperature Pulse Rate Respiratory Rate Blood Pressure 209/83 195/80 176/73 O2 Sat by Pulse 98 Oximetry 05/01/17 05/01/17 05/01/17 01:01 01:30 02:01 Temperature Pulse Rate Respiratory Rate Blood Pressure 160/92 158/67 163/66 O2 Sat by Pulse Oximetry 05/01/17 05/01/17 05/01/17 02:19 02:30 03:00 Temperature Pulse Rate Respiratory 20 Rate Blood Pressure 177/61 177/71 O2 Sat by Pulse Oximetry 05/01/17 05/01/17 05:13 05:31 Temperature Pulse Rate Respiratory Rate Blood Pressure 185/77 174/57 O2 Sat by Pulse Oximetry - EJ/Peripheral Line Arm R Time Out Performed: Yes Indications: nurses unable to establis Skin Cleansed in Sterile Fashion: Yes Size: 20 Dressing Placed: Tegaderm, tape Patient Tolerated Procedure: well GIORGIO score - Giorgio Score Age > 65: (1) Yes Aspirin use within the Past 7 Days: (1) Yes 3 or more CAD Risk Factors: (1) Yes 2 or more Angina events in past 24 hrs: (1) Yes Known CAD with more than 50% Stenosis: (0) No Elevated Cardiac Markers: (0) No ST Deviation Greater than 0.5mm: (0) No GIORGIO Score: 4 ED Medical Decision Making - Lab Data Result diagrams: 04/30/17 11:15 04/30/17 11:15 - EKG Data -: EKG Interpreted by [facility] EKG shows normal: sinus rhythm, axis, intervals, QRS complexes (LVH with early repolarization), ST-T waves Rate: normal - EKG Data When compared to previous EKG there are: no significant change Interpretation: unchanged when compared t (01/11/17) - Radiology Data Radiology results: report reviewed PROCEDURE: CT ANGIO CHEST TECHNIQUE: Computerized tomographic angiography of the chest was performed after the IV injection of iodinated nonionic contrast including image processing. The image data was postprocessed using 2-dimensional multiplanar reformatted (MPR) and 3-dimensional (MIP and/or volume rendered) techniques. HISTORY: r/o PE/Aodi COMPARISON: 04/09/2015 FINDINGS: Heart and pericardium: Normal. Thoracic aorta: Normal. Pulmonary vasculature: Normal. Lymph nodes: No enlarged thoracic lymph nodes. Lungs: Mild atelectasis both lower lungs. No consolidation, effusion or pneumothorax. The central airway is patent. Pleural space: No effusion, thickening, or pneumothorax. Musculoskeletal structures: No significant abnormality. Upper abdominal structures: No significant abnormality. IMPRESSION: There is no evidence of pulmonary arterial emboli. Mild atelectasis bilateral lower lungs. No consolidation, effusion or pneumothorax Transcribed By: [facility] Dictated By: ROSALBA RAMON MD Electronically Authenticated By: ROSALBA RAMON MD Signed Date/Time: 05/01/17 0018 PROCEDURE: CT ANGIO ABDOMEN PELVIS TECHNIQUE: Computerized axial tomography of the abdomen and pelvis was performed after the IV injection of iodinated nonionic contrast. HISTORY: r/o PE/Aodi COMPARISON: No prior studies are available for comparison. FINDINGS: Visualized lower thorax: No significant abnormality. Liver: The liver is fatty infiltrated. Spleen: Normal size and attenuation. Gallbladder and biliary system: Gallbladder lumen is distended. No stones are identified. No dilatation of the biliary ductal system. Pancreas: Normal. Adrenals: Normal. Kidneys: Both kidneys have a normal size. No hydronephrosis. No renal stones or masses. GI tract: The stomach is normal. The small bowel has a normal appearance. No obstruction is seen. The cecum and appendix are normal. There is moderate diverticular change throughout the colon. No inflammatory process is seen.. Lymph nodes and mesentery: Normal. Vasculature: Normal. Bladder: Normal. Reproductive organs: No pelvic masses.. Peritoneum: No free fluid. Musculoskeletal structures: Moderate degenerative changes of the osseous structures. No acute osseous abnormality. Other: None. IMPRESSION: There is no evidence of intestinal or urinary tract obstruction. No ileus or enteritis. Moderate diverticulosis of colon. The gallbladder lumen is distended with no evidence of stone formation. Transcribed By: [facility] Dictated By: ROSALBA RAMON MD Electronically Authenticated By: ROSALBA RAMON MD Signed Date/Time: 05/01/17 0052 - Medical Decision Making Patient presented with upper abdominal and mid sternal chest pain. Negative troponins 3 this far. EKG does not show any signs of ST elevation UT. CT angiography of the abdomen and pelvis as well as of the chest did not show any PE, dissection or any other significant acute process. However given the patient's age, her comorbidities and significant cardiac history, she'll be admitted to the hospital for further evaluation and treatment. The case was presented to the overnight hospitalist, Dr Stratton, who says the admission will be done by the 7 AM morning hospitalist. - Differential Diagnosis UT, dissection, PE, costochondritis, GERD Critical Care Time: No Critical care attestation.: If time is entered above; I have spent that time in minutes in the direct care of this critically ill patient, excluding procedure time. ED Disposition Clinical Impression: Atypical chest pain, Hypertensive urgency, History of coronary artery disease, Upper abdominal pain Disposition: OP ADMIT IP TO THIS HOSP Is pt being admited?: Yes Condition: Stable Instructions: Chest Pain (ED) Referrals: FREDI BARROS MD [Primary Care Provider] - 3-5 Days Time of Disposition: 06:37
[2017-04-30] MEDS ORDERED: APRESOLINE IV ONE (21:17)
--- NOTE | 2017-05-01 04:22 | Cat Scan Report ---
FINAL REPORT PROCEDURE: CT ANGIO CHEST TECHNIQUE: Computerized tomographic angiography of the chest was performed after the IV injection of iodinated nonionic contrast including image processing. The image data was postprocessed using 2-dimensional multiplanar reformatted (MPR) and 3-dimensional (MIP and/or volume rendered) techniques. HISTORY: r/o PE/Aodi COMPARISON: 04/09/2015 FINDINGS: Heart and pericardium: Normal. Thoracic aorta: Normal. Pulmonary vasculature: Normal. Lymph nodes: No enlarged thoracic lymph nodes. Lungs: Mild atelectasis both lower lungs. No consolidation, effusion or pneumothorax. The central airway is patent. Pleural space: No effusion, thickening, or pneumothorax. Musculoskeletal structures: No significant abnormality. Upper abdominal structures: No significant abnormality. IMPRESSION: There is no evidence of pulmonary arterial emboli. Mild atelectasis bilateral lower lungs. No consolidation, effusion or pneumothorax
--- NOTE | 2017-05-01 04:56 | Cat Scan Report ---
FINAL REPORT PROCEDURE: CT ANGIO ABDOMEN PELVIS TECHNIQUE: Computerized axial tomography of the abdomen and pelvis was performed after the IV injection of iodinated nonionic contrast. HISTORY: r/o PE/Aodi COMPARISON: No prior studies are available for comparison. FINDINGS: Visualized lower thorax: No significant abnormality. Liver: The liver is fatty infiltrated. Spleen: Normal size and attenuation. Gallbladder and biliary system: Gallbladder lumen is distended. No stones are identified. No dilatation of the biliary ductal system. Pancreas: Normal. Adrenals: Normal. Kidneys: Both kidneys have a normal size. No hydronephrosis. No renal stones or masses. GI tract: The stomach is normal. The small bowel has a normal appearance. No obstruction is seen. The cecum and appendix are normal. There is moderate diverticular change throughout the colon. No inflammatory process is seen.. Lymph nodes and mesentery: Normal. Vasculature: Normal. Bladder: Normal. Reproductive organs: No pelvic masses.. Peritoneum: No free fluid. Musculoskeletal structures: Moderate degenerative changes of the osseous structures. No acute osseous abnormality. Other: None. IMPRESSION: There is no evidence of intestinal or urinary tract obstruction. No ileus or enteritis. Moderate diverticulosis of colon. The gallbladder lumen is distended with no evidence of stone formation.
[2017-05-01] MEDS ORDERED: TYLENOL PO PRN (08:36)
[2017-05-01] MEDS ORDERED: ZOFRAN IV PRN (08:36)
[2017-05-01] MEDS ORDERED: SODIUM CHLORIDE FLUSH SYRINGE 10 ML IV PRN (08:36)
[2017-05-01] MEDS ORDERED: DULCOLAX PR PRN (08:36)
[2017-05-01] MEDS ORDERED: PROVENTIL IH PRN (08:36)
[2017-05-01] MEDS ORDERED: MILK OF MAGNESIA PO PRN (08:36)
[2017-05-01] MEDS ORDERED: D50W (25GM) Syringe IV PRN (08:40)
--- NOTE | 2017-05-01 08:41 | History and Physical Report ---
History of Present Illness Date of examination: 05/01/17 Date of admission: 05/01/17 07:58 Chief complaint: Dizziness, chest pain, difficulty swallowing History of present illness: Patient is a 81-year-old black female with past medical history of HTN, DM, GERD , OA, Asthma, Dementia, CAD S/P Stent placement presents to ED with complaints of sensation of food being stuck in her throat for about two weeks, chronic dizziness and chest pain. She also reports recurrent falls and is not clear about any of her complaints. she is a poor historian providing no specifics but denies fever, chills, CP, Palpitations, NVD, syncope, recent ill contacts, Seizures, vertigo, loss of bowel or bladder continence, BRBPR, Melena, ingestion of food, or water from new or different sources. Pt seen and evaluated in ED and found to have dysarthria and stroke protocol initiated. Pt also underwent CT abdomen and pelvis which showed colonic diverticulosis as well as possible early sigmoid diverticulitis. no family is present Past History Past Medical History: acute [place], CAD, GERD Past Surgical History: PTCA Social history: no significant social history, lives with family, full code Family history: no significant family history Medications and Allergies Allergies Allergy/AdvReac Type Severity Reaction Status Date / Time aspirin Allergy Hives Verified 04/30/17 11:07 Home Medications Medication Instructions Recorded Confirmed Last Taken Type Insulin NPH/Regular [NovoLIN 70/30] 20 unit SQ BIDDIAB 01/15/17 05/01/17 History Atenolol [Tenormin] 25 mg PO DAILY #30 tablet 01/19/17 05/01/17 04/30/17 Rx Clopidogrel [Plavix] 75 mg PO QDAY #30 tablet 01/19/17 05/01/17 04/30/17 Rx Pravastatin [Pravachol] 40 mg PO QHS #30 tablet 01/19/17 05/01/17 04/30/17 Rx Active Meds: Active Medications Acetaminophen (Tylenol) 650 mg PO Q4H PRN PRN Reason: Pain MILD(1-3)/Fever >100.5/ROMERO Albuterol (Proventil) 2.5 mg IH Q4HRT PRN PRN Reason: Shortness Of Breath Albuterol/Ipratropium (Duoneb *Not For Prn Use*) 1 ampul IH Q6HRT RIRI Atenolol (Tenormin) 25 mg PO DAILY RIRI Bisacodyl (Dulcolax) 10 mg NC QDAY PRN PRN Reason: Constipation unrelieved by MOM Clopidogrel Bisulfate (Plavix) 75 mg PO QDAY [facility] Heparin Sodium (Porcine) (Heparin) 5,000 unit SUB-Q Q12HR [facility] Potassium Chloride/Dextrose/Sod Cl (D5w/0.45% Nacl/Kcl 20 Meq) 20 meq in 1,000 mls @ 75 mls/hr IV DIRECT RIRI Insulin Human Isoph/Insulin Regular (Novolin 70/30) 20 unit SUB-Q BIDDIAB RIRI Magnesium Hydroxide (Milk Of Magnesia) 30 ml PO Q4H PRN PRN Reason: Constipation Ondansetron HCl (Zofran) 4 mg IV Q8H PRN PRN Reason: N/V unrelieved by Reglan Pravastatin Sodium (Pravachol) 40 mg PO QHS [facility] Sodium Chloride (Sodium Chloride Flush Syringe 10 Ml) 10 ml IV PRN PRN PRN Reason: LINE FLUSH Review of Systems Constitutional: fatigue, weakness, no poor appetite Ears, nose, mouth and throat: dysphagia, neck fullness/pressure, no swelling in mouth, no swelling in throat, no odynophagia Cardiovascular: chest pain, no orthopnea, no palpitations, no rapid/irregular heart beat, no edema, no shortness of breath Respiratory: no cough, no cough with sputum, no excessive sputum, no hemoptysis , no shortness of breath, no dyspnea on exertion Gastrointestinal: no abdominal pain, no nausea, no vomiting, no diarrhea, no constipation, no change in bowel habits Genitourinary Female: no dyspareunia, no dysmenorrhea, no pelvic pain, no flank pain, no dysuria Rectal: no pain, no incontinence, no bleeding Musculoskeletal: no neck stiffness, no neck pain, no shooting arm pain, no arm numbness/tingling, no shooting leg pain, no leg numbness/tingling Integumentary: no deferred, no rash, no pruritis, no redness, no sores Neurological: weakness, vertigo Psychiatric: memory loss, no anxiety, no sleep disturbances, no insomnia, no hypersomnia Endocrine: fatigue, no cold intolerance, no heat intolerance, no polyphagia, no nocturia, no excessive sweating Hematologic/Lymphatic: no easy bruising, no easy bleeding Allergic/Immunologic: no urticaria, no allergic rhinitis, no wheezing, no persistent infections, no anaphylaxis, no angioedema Exam - Constitutional Vitals: Temp Pulse Resp BP Pulse Ox 98 F 86 18 154/63 98 04/30/17 11:07 05/01/17 06:52 05/01/17 06:52 05/01/17 07:00 05/01/17 07:00 General appearance: Present: no acute distress, well-nourished - EENT Eyes: Present: PERRL, EOM intact ENT: hearing intact, clear oral mucosa - Neck Neck: Present: supple, normal ROM - Respiratory Respiratory effort: normal Respiratory: bilateral: CTA - Cardiovascular Rhythm: regular Heart Sounds: Present: S1 & S2. Absent: systolic murmur, diastolic murmur - Extremities Extremities: no ischemia, pulses intact, pulses symmetrical, No edema, normal temperature, normal color, Full ROM Peripheral Pulses: within normal limits - Abdominal General gastrointestinal: Present: soft, non-tender, non-distended, normal bowel sounds - Integumentary Integumentary: Present: clear, warm, dry - Musculoskeletal Musculoskeletal: strength equal bilaterally - Psychiatric Psychiatric: appropriate mood/affect, other (POOR HISTORIAN) - Neurologic Neurologic: CNII-XII intact, focal deficits, moves all extremities - Allied Health Allied health notes reviewed: nursing Results - Labs CBC & Chem 7: 05/01/17 09:29 05/01/17 09:29 Labs: Laboratory Last Values WBC 4.0 K/mm3 (4.5-11.0) L 04/30/17 11:15 RBC 3.94 M/mm3 (3.65-5.03) 04/30/17 11:15 Hgb 13.3 gm/dl (10.1-14.3) 04/30/17 11:15 Hct 39.4 % (30.3-42.9) 04/30/17 11:15 MCV 100 fl (79-97) H 04/30/17 11:15 MCH 34 pg (28-32) H 04/30/17 11:15 MCHC 34 % (30-34) 04/30/17 11:15 RDW 12.4 % (13.2-15.2) L 04/30/17 11:15 Plt Count 146 K/mm3 (140-440) 04/30/17 11:15 Lymph % (Auto) 45.0 % (13.4-35.0) H 04/30/17 11:15 [place] % (Auto) 12.6 % (0.0-7.3) H 04/30/17 11:15 Eos % (Auto) 0.5 % (0.0-4.3) 04/30/17 11:15 Baso % (Auto) 0.5 % (0.0-1.8) 04/30/17 11:15 Lymph # 1.8 K/mm3 (1.2-5.4) 04/30/17 11:15 [place] # 0.5 K/mm3 (0.0-0.8) 04/30/17 11:15 Eos # 0.0 K/mm3 (0.0-0.4) 04/30/17 11:15 Baso # 0.0 K/mm3 (0.0-0.1) 04/30/17 11:15 Seg Neutrophils % 41.4 % (40.0-70.0) 04/30/17 11:15 Seg Neutrophils # 1.7 K/mm3 (1.8-7.7) L 04/30/17 11:15 Sodium 144 mmol/L (137-145) 04/30/17 11:15 Potassium 4.2 mmol/L (3.6-5.0) 04/30/17 11:15 Chloride 101.8 mmol/L (98-107) 04/30/17 11:15 Carbon Dioxide 26 mmol/L (22-30) 04/30/17 11:15 Anion Gap 20 mmol/L 04/30/17 11:15 BUN 19 mg/dL (7-17) H 04/30/17 11:15 Creatinine 0.8 mg/dL (0.7-1.2) 04/30/17 11:15 Estimated GFR > 60 ml/min 04/30/17 11:15 BUN/Creatinine Ratio 24 % 04/30/17 11:15 Glucose 166 mg/dL (65-100) H 04/30/17 11:15 Calcium 9.0 mg/dL (8.4-10.2) 02/16/18 11:15 Troponin T < 0.010 ng/mL (0.00-0.029) 04/30/17 16:39 Urine Color Yellow (Yellow) 04/30/17 19:17 Urine Turbidity Clear (Clear) 04/30/17 19:17 Urine pH 6.0 (5.0-7.0) 04/30/17 19:17 Ur Specific [place] 1.021 (1.003-1.030) 04/30/17 19:17 Urine Protein <15 mg/dl mg/dL (Negative) 04/30/17 19:17 Urine Glucose (UA) Neg mg/dL (Negative) 04/30/17 19:17 Urine Ketones Neg mg/dL (Negative) 04/30/17 19:17 Urine Blood Neg (Negative) 04/30/17 19:17 Urine Nitrite Neg (Negative) 04/30/17 19:17 Urine Bilirubin Neg (Negative) 04/30/17 19:17 Urine Urobilinogen 4.0 mg/dL (<2.0) 04/30/17 19:17 Ur Leukocyte Esterase Neg (Negative) 04/30/17 19:17 Urine WBC (Auto) 2.0 /HPF (0.0-6.0) 04/30/17 19:17 Urine RBC (Auto) 1.0 /HPF (0.0-6.0) 04/30/17 19:17 U Epithel Cells (Auto) 2.0 /HPF (0-13.0) 04/30/17 19:17 Urine Mucus Few /HPF 04/30/17 19:17 - Imaging and Cardiology CT scan - abdomen: image reviewed CT scan - chest: image reviewed (ATALECTASIS) Assessment and Plan Assessment and plan: Patient is a 81-year-old black female with past medical history of HTN, DM, GERD , OA, Asthma, Dementia, CAD S/P Stent placement presents to ED with complaints of sensation of food being stuck in her throat for about two weeks, chronic dizziness and chest pain. She also reports recurrent falls and is not clear about any of her complaints. she is a poor historian providing no specifics but denies fever, chills, CP, Palpitations, NVD, syncope, recent ill contacts, Seizures, vertigo, loss of bowel or bladder continence, BRBPR, Melena, ingestion of food, or water from new or different sources. Pt seen and evaluated in ED and found to have dysarthria and stroke protocol initiated. Pt also underwent CT abdomen and pelvis which showed colonic diverticulosis as well as possible early sigmoid diverticulitis. Atypical chest pain * Resume home meds, antiplatelates, stress test. cardiology consult Dysphagia * GI eval Recurrent falls * Bed rest, fall precautions CAD * Continue antiplaeletes HTN * continue home meds DM * continue insulin Dementia * stable DVT/GI prophy Anticipate discharge in a few days, need to discuss with family about ongoing care Advance Directives: Yes Plan of care discussed with patient/family: Yes
--- NOTE | 2017-05-01 08:51 | History and Physical Report ---
History of Present Illness Date of examination: 05/01/17 Date of admission: 05/01/17 07:58 Medications and Allergies Allergies Allergy/AdvReac Type Severity Reaction Status Date / Time aspirin Allergy Hives Verified 04/30/17 11:07 Home Medications Medication Instructions Recorded Confirmed Last Taken Type Insulin NPH/Regular [NovoLIN 70/30] 20 unit SQ BIDDIAB 01/15/17 05/01/17 History Atenolol [Tenormin] 25 mg PO DAILY #30 tablet 01/19/17 05/01/17 04/30/17 Rx Clopidogrel [Plavix] 75 mg PO QDAY #30 tablet 01/19/17 05/01/17 04/30/17 Rx Pravastatin [Pravachol] 40 mg PO QHS #30 tablet 01/19/17 05/01/17 04/30/17 Rx Active Meds: Active Medications Acetaminophen (Tylenol) 650 mg PO Q4H PRN PRN Reason: Pain MILD(1-3)/Fever >100.5/ROMERO Albuterol (Proventil) 2.5 mg IH Q4HRT PRN PRN Reason: Shortness Of Breath Albuterol/Ipratropium (Duoneb *Not For Prn Use*) 1 ampul IH Q6HRT RIRI Atenolol (Tenormin) 25 mg PO DAILY RIRI Bisacodyl (Dulcolax) 10 mg IA QDAY PRN PRN Reason: Constipation unrelieved by MOM Clopidogrel Bisulfate (Plavix) 75 mg PO QDAY RIRI Dextrose (D50w (25gm) Syringe) 50 ml IV PRN PRN PRN Reason: Hypoglycemia Heparin Sodium (Porcine) (Heparin) 5,000 unit SUB-Q Q12HR RIRI Hydralazine HCl (Apresoline) 10 mg IV Q4HR PRN PRN Reason: Hypertension Potassium Chloride/Dextrose/Sod Cl (D5w/0.45% Nacl/Kcl 20 Meq) 20 meq in 1,000 mls @ 75 mls/hr IV DIRECT RIRI Insulin Aspart (Novolog) 0 units SUB-Q ACHS RIRI PRN Reason: Protocol Insulin Human Isoph/Insulin Regular (Novolin 70/30) 20 unit SUB-Q BIDDIAB RIRI Magnesium Hydroxide (Milk Of Magnesia) 30 ml PO Q4H PRN PRN Reason: Constipation Ondansetron HCl (Zofran) 4 mg IV Q8H PRN PRN Reason: N/V unrelieved by Reglan Pravastatin Sodium (Pravachol) 40 mg PO QHS RIRI Sodium Chloride (Sodium Chloride Flush Syringe 10 Ml) 10 ml IV PRN PRN PRN Reason: LINE FLUSH Exam - Constitutional Vitals: Temp Pulse Resp BP Pulse Ox 98 F 86 18 154/63 98 04/30/17 11:07 05/01/17 06:52 05/01/17 06:52 05/01/17 07:00 05/01/17 07:00 Results - Labs CBC & Chem 7: 04/30/17 11:15 04/30/17 11:15 Labs: Abnormal lab results 04/30/17 04/30/17 Range/Units 11:15 11:15 WBC 4.0 L (4.5-11.0) K/mm3 MCV 100 H (79-97) fl MCH 34 H (28-32) pg RDW 12.4 L (13.2-15.2) % Lymph % (Auto) 45.0 H (13.4-35.0) % [place] % (Auto) 12.6 H (0.0-7.3) % Seg Neutrophils # 1.7 L (1.8-7.7) K/mm3 BUN 19 H (7-17) mg/dL Glucose 166 H (65-100) mg/dL
[2017-05-01 09:52] LABS: Basophils % (Auto) 0.5 % (0.0-1.8); Eosinophils % (Auto) 0.2 % (0.0-4.3); Hematocrit 43.2 % (30.3-42.9); Hemoglobin 14.6 gm/dl (10.1-14.3); Lymphocytes # (Auto) 1.5 K/mm3 (1.2-5.4); Lymphocytes % (Auto) 31.5 % (13.4-35.0); Mean Corpuscular HGB Conc 34 % (30-34); Mean Corpuscular Hemoglobin 34 pg (28-32); Mean Corpuscular Volume 100 fl (79-97); Monocytes # (Auto) 0.6 K/mm3 (0.0-0.8); Monocytes % (Auto) 12.3 % (0.0-7.3); Platelet Count 135 K/mm3 (140-440); Red Blood Count 4.33 M/mm3 (3.65-5.03); Red Cell Distribution Width 12.3 % (13.2-15.2)
[2017-05-01] MEDS ORDERED: LEXISCAN IV ONE ×2 (10:04→10:14)
--- NOTE | 2017-05-01 10:08 | Event Note ---
Date: 05/01/17 PATIENT IS REGULARLY SEEN BY [facility]. PLEASE REFER TESTING AND FURTHER CONSULTATION TO THEIR SERVICE. THANK YOU.
[2017-05-01 10:13] LABS: BUN/Creatinine Ratio 17; Blood Urea Nitrogen 10 mg/dL (7-17); Calcium 9.2 mg/dL (8.4-10.2); Hemolysis Index 12
--- NOTE | 2017-05-01 10:44 | Gastroenterology Consultation ---
History of Present Illness - Reason for Consult Consult date: 05/01/17 dysphagia Requesting physician: SUSY SIMS - History of Present Illness The patient is an 81 year old female admitted for chest pain. Consultation has been requested for dysphagia. Although she is poor historian due to moderate dementia, she reports difficulty with swallowing solid foods for the past month. Her appetite has been good and she denies odynophagia, nausea, vomiting or weight loss. Past History Past Medical History: CAD, diabetes, hypertension, stroke, other (dementia, peripheral vascular disease, ) Past Surgical History: Other (joint surgery) Social history: lives with family. denies: smoking, alcohol abuse Family history: other (unknown) Medications and Allergies Allergies Allergy/AdvReac Type Severity Reaction Status Date / Time aspirin Allergy Hives Verified 04/30/17 11:07 Home Medications Medication Instructions Recorded Confirmed Last Taken Type Insulin NPH/Regular [NovoLIN 70/30] 20 unit SQ BIDDIAB 01/15/17 05/01/17 History Atenolol [Tenormin] 25 mg PO DAILY #30 tablet 01/19/17 05/01/17 04/30/17 Rx Clopidogrel [Plavix] 75 mg PO QDAY #30 tablet 01/19/17 05/01/17 04/30/17 Rx Pravastatin [Pravachol] 40 mg PO QHS #30 tablet 01/19/17 05/01/17 04/30/17 Rx Active Meds: Active Medications Acetaminophen (Tylenol) 650 mg PO Q4H PRN PRN Reason: Pain MILD(1-3)/Fever >100.5/ROMERO Albuterol (Proventil) 2.5 mg IH Q4HRT PRN PRN Reason: Shortness Of Breath Albuterol/Ipratropium (Duoneb *Not For Prn Use*) 1 ampul IH Q6HRT RIRI Atenolol (Tenormin) 25 mg PO DAILY RIRI Bisacodyl (Dulcolax) 10 mg OK QDAY PRN PRN Reason: Constipation unrelieved by MOM Clopidogrel Bisulfate (Plavix) 75 mg PO QDAY RIRI Dextrose (D50w (25gm) Syringe) 50 ml IV PRN PRN PRN Reason: Hypoglycemia Heparin Sodium (Porcine) (Heparin) 5,000 unit SUB-Q Q12HR RIRI Hydralazine HCl (Apresoline) 10 mg IV Q4HR PRN PRN Reason: Hypertension Potassium Chloride/Dextrose/Sod Cl (D5w/0.45% Nacl/Kcl 20 Meq) 20 meq in 1,000 mls @ 75 mls/hr IV DIRECT RIRI Insulin Aspart (Novolog) 0 units SUB-Q ACHS RIRI PRN Reason: Protocol Insulin Human Isoph/Insulin Regular (Novolin 70/30) 20 unit SUB-Q BIDDIAB RIRI Magnesium Hydroxide (Milk Of Magnesia) 30 ml PO Q4H PRN PRN Reason: Constipation Ondansetron HCl (Zofran) 4 mg IV Q8H PRN PRN Reason: N/V unrelieved by Reglan Pravastatin Sodium (Pravachol) 40 mg PO QHS RIRI Sodium Chloride (Sodium Chloride Flush Syringe 10 Ml) 10 ml IV PRN PRN PRN Reason: LINE FLUSH Review of Systems - Review of Systems Constitutional: no weight loss, no weight gain Eyes: no change in vision Breasts: deferred Cardiovascular: chest pain Gastrointestinal: no abdominal pain, no nausea, no vomiting Rectal: no pain Female Genitourinary: deferred Musculoskeletal: no gait dysfunction Neurological: memory loss, no head injury, no paralysis, no weakness Psychiatric: memory loss, no anxiety Endocrine: no cold intolerance, no heat intolerance Hematologic/Lymphatic: no easy bruising Allergic/Immunologic: no wheezing Exam - Constitutional Vital Signs: Temp Pulse Resp BP Pulse Ox 98.8 F 94 H 20 160/67 98 05/01/17 08:47 05/01/17 08:47 05/01/17 08:47 05/01/17 08:47 05/01/17 08:47 General appearance: no acute distress, well-nourished - EENT Eyes: PERRL ENT: hearing intact, clear oral mucosa, poor dentition - Neck Neck: supple, normal ROM, no masses or JVD - Respiratory Respiratory effort: normal Respiratory: bilateral: CTA - Breasts Breasts: deferred - Cardiovascular Rhythm: regular Heart Sounds: Present: S1 & S2. Absent: gallop, rub - Gastrointestinal General gastrointestinal: Present: soft, non-tender, non-distended. Absent: hepatomegaly, splenomegaly, mass Rectal Exam: deferred - Genitourinary Female Genitourinary: deferred - Integumentary Integumentary: Present: clear, warm, dry - Neurologic Neurological: oriented to person, oriented to place, strength equal bilaterally - Psychiatric Psychiatric: appropriate mood/affect, no memory intact, cooperative - Labs CBC & Chem 7: 05/01/17 09:29 05/01/17 09:29 Lab Results: Laboratory Results - last 24 hr 04/30/17 04/30/17 04/30/17 11:15 11:15 14:14 WBC 4.0 L RBC 3.94 Hgb 13.3 Hct 39.4 MCV 100 H MCH 34 H MCHC 34 RDW 12.4 L Plt Count 146 Lymph % (Auto) 45.0 H [place] % (Auto) 12.6 H Eos % (Auto) 0.5 Baso % (Auto) 0.5 Lymph # 1.8 [place] # 0.5 Eos # 0.0 Baso # 0.0 Seg Neutrophils % 41.4 Seg Neutrophils # 1.7 L Sodium 144 Potassium 4.2 Chloride 101.8 Carbon Dioxide 26 Anion Gap 20 BUN 19 H Creatinine 0.8 Estimated GFR > 60 BUN/Creatinine Ratio 24 Glucose 166 H Calcium 9.0 Troponin T < 0.010 < 0.010 Urine Color Urine Turbidity Urine pH Ur Specific [place] Urine Protein Urine Glucose (UA) Urine Ketones Urine Blood Urine Nitrite Urine Bilirubin Urine Urobilinogen Ur Leukocyte Esterase Urine WBC (Auto) Urine RBC (Auto) U Epithel Cells (Auto) Urine Mucus 04/30/17 04/30/17 05/01/17 16:39 19:17 09:29 WBC 4.8 RBC 4.33 Hgb 14.6 H Hct 43.2 H MCV 100 H MCH 34 H MCHC 34 RDW 12.3 L Plt Count 135 L Lymph % (Auto) 31.5 [place] % (Auto) 12.3 H Eos % (Auto) 0.2 Baso % (Auto) 0.5 Lymph # 1.5 [place] # 0.6 Eos # 0.0 Baso # 0.0 Seg Neutrophils % 55.5 Seg Neutrophils # 2.7 Sodium Potassium Chloride Carbon Dioxide Anion Gap BUN Creatinine Estimated GFR BUN/Creatinine Ratio Glucose Calcium Troponin T < 0.010 Urine Color Yellow Urine Turbidity Clear Urine pH 6.0 Ur Specific [place] 1.021 Urine Protein <15 mg/dl Urine Glucose (UA) Neg Urine Ketones Neg Urine Blood Neg Urine Nitrite Neg Urine Bilirubin Neg Urine Urobilinogen 4.0 Ur Leukocyte Esterase Neg Urine WBC (Auto) 2.0 Urine RBC (Auto) 1.0 U Epithel Cells (Auto) 2.0 Urine Mucus Few 05/01/17 09:29 WBC RBC Hgb Hct MCV MCH MCHC RDW Plt Count Lymph % (Auto) [place] % (Auto) Eos % (Auto) Baso % (Auto) Lymph # [place] # Eos # Baso # Seg Neutrophils % Seg Neutrophils # Sodium 143 Potassium 4.0 Chloride 103.1 Carbon Dioxide 24 Anion Gap 20 BUN 10 Creatinine 0.6 L Estimated GFR > 60 BUN/Creatinine Ratio 17 Glucose 132 H Calcium 9.2 Troponin T Urine Color Urine Turbidity Urine pH Ur Specific [place] Urine Protein Urine Glucose (UA) Urine Ketones Urine Blood Urine Nitrite Urine Bilirubin Urine Urobilinogen Ur Leukocyte Esterase Urine WBC (Auto) Urine RBC (Auto) U Epithel Cells (Auto) Urine Mucus Assessment and Plan - Patient Problems (1) Dysphagia Current Visit: Yes Status: Acute Plan to address problem: Rule out peptic stricture, esophageal dysmotility related to age. Neoplasia is less likely. Symptoms have been present at least a month and are relatively mild. EGD in a few days is reasonable, if hospitalization is required, otherwise an outpatient study can be arranged with the help of the family. Soft diet after stress test is recommended. (2) Coronary artery disease Current Visit: No Status: Chronic Qualifiers: Coronary Disease-Associated Artery/Lesion type: upper [place] artery Associated angina: with unspecified angina (3) Dysphagia Current Visit: No Status: Chronic (4) Hypertension Current Visit: No Status: Chronic Qualifiers: Hypertension type: essential hypertension Qualified Code(s): I10 - Essential (primary) hypertension (5) Insulin dependent diabetes mellitus Current Visit: No Status: Chronic (6) Lacunar infarction Current Visit: No Status: Chronic
[2017-05-01] MEDS: TENORMIN PO SCH ×2 (11:04→20:05)
[2017-05-01] MEDS: PLAVIX PO SCH ×2 (11:04→20:04)
[2017-05-01] MEDS: D5W/0.45% NACL/KCL 20 MEQ 20 MEQ/1,000 ML BAG IV SCH (11:14)
[2017-05-01] MEDS: HEPARIN SUB-Q SCH ×2 (11:15→22:46)
--- NOTE | 2017-05-01 13:59 | Event Note ---
Date: 05/01/17 lexiscan stress test: normal lv ef 66%. 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
[2017-05-01] MEDS: DUONEB *Not for PRN Use IH SCH ×3 (14:45→22:07)
[2017-05-01] MEDS: NOVOLOG SUB-Q SCH ×3 (15:11→22:46)
--- NOTE | 2017-05-01 18:28 | Consultation ---
History of Present Illness Consult date: 05/01/17 Requesting physician: EMILY BHANDARI Consult reason: chest pain, hypertension, known to you History of present illness: 81 yr old female known to our service. seen in stress lab. she has a hx of cad, dm, and htn. she is s/p pci with lex to the lad which was found to be patent in 2015 during cor angiography. she has been adm to [facility] mult time with recurrent chest pain. she had an unremarkable echo 12/2016. she is currently adm with intermittent precordial chest tightness that "comes and goes" as well as epigastric pain and difficulty swallowing. gi consultation has been obtainted. the ecg demonstrates sinus rhythm with nonspec stt changes. bp is elevated. troponins are negative. a vasodilator stress test revealed normal lv systolic function with evidence of prior inferolateral necrois with a mild degree or residual ischemia. cardiology consultation was requested. Past History Past Medical History: acute HI, CAD, GERD Past Surgical History: PTCA Social history: no significant social history, lives with family, full code Family history: no significant family history Medications and Allergies Allergies Allergy/AdvReac Type Severity Reaction Status Date / Time aspirin Allergy Hives Verified 04/30/17 11:07 Home Medications Medication Instructions Recorded Confirmed Last Taken Type Insulin NPH/Regular [NovoLIN 70/30] 20 unit SQ BIDDIAB 01/15/17 05/01/17 History Atenolol [Tenormin] 25 mg PO DAILY #30 tablet 01/19/17 05/01/17 04/30/17 Rx Clopidogrel [Plavix] 75 mg PO QDAY #30 tablet 01/19/17 05/01/17 04/30/17 Rx Pravastatin [Pravachol] 40 mg PO QHS #30 tablet 01/19/17 05/01/17 04/30/17 Rx Active Meds: Active Medications Acetaminophen (Tylenol) 650 mg PO Q4H PRN PRN Reason: Pain MILD(1-3)/Fever >100.5/ROMERO Albuterol (Proventil) 2.5 mg IH Q4HRT PRN PRN Reason: Shortness Of Breath Albuterol/Ipratropium (Duoneb *Not For Prn Use*) 1 ampul IH Q6HRT RIRI Last Admin: 05/01/17 14:45 Dose: Not Given Atenolol (Tenormin) 25 mg PO DAILY [facility] Last Admin: 05/01/17 11:04 Dose: Not Given Bisacodyl (Dulcolax) 10 mg MA QDAY PRN PRN Reason: Constipation unrelieved by MOM Clopidogrel Bisulfate (Plavix) 75 mg PO QDAY [facility] Last Admin: 05/01/17 11:04 Dose: Not Given Dextrose (D50w (25gm) Syringe) 50 ml IV PRN PRN PRN Reason: Hypoglycemia Heparin Sodium (Porcine) (Heparin) 5,000 unit SUB-Q Q12HR [facility] Last Admin: 05/01/17 11:15 Dose: 5,000 unit Hydralazine HCl (Apresoline) 10 mg IV Q4HR PRN PRN Reason: Hypertension Potassium Chloride/Dextrose/Sod Cl (D5w/0.45% Nacl/Kcl 20 Meq) 20 meq in 1,000 mls @ 75 mls/hr IV DIRECT [facility] Last Admin: 05/01/17 11:14 Dose: 75 mls/hr Insulin Aspart (Novolog) 0 units SUB-Q ACHS [facility] PRN Reason: Protocol Last Admin: 05/01/17 17:47 Dose: 2 units Insulin Human Isoph/Insulin Regular (Novolin 70/30) 20 unit SUB-Q BIDDIAB [facility] Last Admin: 05/01/17 17:47 Dose: 20 unit Magnesium Hydroxide (Milk Of Magnesia) 30 ml PO Q4H PRN PRN Reason: Constipation Ondansetron HCl (Zofran) 4 mg IV Q8H PRN PRN Reason: N/V unrelieved by Reglan Pravastatin Sodium (Pravachol) 40 mg PO QHS [facility] Sodium Chloride (Sodium Chloride Flush Syringe 10 Ml) 10 ml IV PRN PRN PRN Reason: LINE FLUSH Review of Systems Constitutional: no weight loss, no fever, no chills Eyes: bilateral: blurred vision (no complaints) Ears, nose, mouth and throat: no epistaxis Cardiovascular: chest pain, no palpitations Respiratory: no hemoptysis, no shortness of breath Gastrointestinal: abdominal pain Genitourinary Female: no flank pain Musculoskeletal: frequent falls, no hot joints Integumentary: other (frequently complains that her skin feels hot) Neurological: no syncope Psychiatric: other (dementia) Hematologic/Lymphatic: no easy bruising, no easy bleeding Allergic/Immunologic: no wheezing Physical Examination Vital Signs Temp Pulse Resp BP Pulse Ox 98 F 76 18 168/76 97 04/30/17 11:07 04/30/17 11:07 04/30/17 11:07 04/30/17 11:07 04/30/17 11:07 General appearance: no acute distress HEENT: Positive: PERRL, Normocephaly Neck: Positive: neck supple, Carotid Upstroke (2+ bilat). Negative: JVD/HJR, Bruit Cardiac: Positive: Reg Rate and Rhythm, S4. Negative: S3, Audible Murmur Lungs: Positive: clear to auscultation Neuro: Positive: Grossly Intact Abdomen: Positive: Soft. Negative: Tender Skin: Negative: Rash Musculoskeletal: Normal Range of Motion Extremities: Present: upper extr. pulses (2+ bilat), lower extr. pulses (2+ bilat). Absent: edema Results 05/02/17 04:40 05/02/17 04:40 CBC 05/01/17 Range/Units 09:29 WBC 4.8 (4.5-11.0) K/mm3 RBC 4.33 (3.65-5.03) M/mm3 Hgb 14.6 H (10.1-14.3) gm/dl Hct 43.2 H (30.3-42.9) % Plt Count 135 L (140-440) K/mm3 Lymph # 1.5 (1.2-5.4) K/mm3 [place] # 0.6 (0.0-0.8) K/mm3 Eos # 0.0 (0.0-0.4) K/mm3 Baso # 0.0 (0.0-0.1) K/mm3 Comprehensive Metabolic Panel 05/01/17 Range/Units 09:29 Sodium 143 (137-145) mmol/L Potassium 4.0 (3.6-5.0) mmol/L Chloride 103.1 (98-107) mmol/L Carbon Dioxide 24 (22-30) mmol/L BUN 10 (7-17) mg/dL Creatinine 0.6 L (0.7-1.2) mg/dL Glucose 132 H (65-100) mg/dL Calcium 9.2 (8.4-10.2) mg/dL Assessment and Plan chest pain/neg card enz/no acute ecg changes/abn ashley stress mpi cad s/p pci htn dm epigastric pain difficulty swallowing plan: per gi med mgt of cp at this point. consider repeat cor angio if cp continues
[2017-05-01] MEDS: PRAVACHOL PO SCH (22:46)
[2017-05-02] MEDS: DUONEB *Not for PRN Use IH SCH ×4 (02:10→20:38)
--- NOTE | 2017-05-02 02:29 | Treadmill Report ---
NUCLEAR CARDIAC IMAGING INDICATION FOR PROCEDURE: Chest pain. Informed consent was obtained. Vasodilator stress was achieved with the intravenous administration of 0.4 mg of Lexiscan per protocol. Rest and stress nuclear cardiac imaging were performed per protocol using 10 mCi of technetium 99m Myoview and 28 mCi of technetium 99m Myoview respectively. Gated SPECT imaging demonstrates a post-stress left ventricular ejection fraction of 66% with normal wall motion. Myocardial perfusion imaging demonstrates no significant cavity change between stress and rest. There is a medium sized, moderately intense, partially reversible inferolateral perfusion abnormality. Nuclear cardiac imaging demonstrates grossly normal post-stress left ventricular systolic function. 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 The summed difference score is 5. A significant degree of ischemia does not appear to be present. [facility]# [id number] DARWIN/ASA MORAN
[2017-05-02] MEDS: D5W/0.45% NACL/KCL 20 MEQ 20 MEQ/1,000 ML BAG IV SCH (04:32)
[2017-05-02 05:07] LABS: Basophils % (Auto) 0.7 % (0.0-1.8); Eosinophils % (Auto) 0.8 % (0.0-4.3); Hematocrit 41.4 % (30.3-42.9); Hemoglobin 14.2 gm/dl (10.1-14.3); Lymphocytes # (Auto) 1.7 K/mm3 (1.2-5.4); Mean Corpuscular HGB Conc 34 % (30-34); Mean Corpuscular Hemoglobin 34 pg (28-32); Mean Corpuscular Volume 99 fl (79-97); Monocytes # (Auto) 0.6 K/mm3 (0.0-0.8); Monocytes % (Auto) 15.9 % (0.0-7.3); Platelet Count 132 K/mm3 (140-440); Red Blood Count 4.18 M/mm3 (3.65-5.03); Red Cell Distribution Width 12.4 % (13.2-15.2)
[2017-05-02 05:22] LABS: BUN/Creatinine Ratio 17; Blood Urea Nitrogen 10 mg/dL (7-17); Calcium 8.4 mg/dL (8.4-10.2); Hemolysis Index 39
[2017-05-02] MEDS: APRESOLINE IV PRN (07:26)
[2017-05-02] MEDS: NOVOLOG SUB-Q SCH ×4 (08:34→23:27)
--- NOTE | 2017-05-02 08:47 | Progress Note ---
Assessment and Plan chest pain/neg card enz/no acute ecg changes/abn ashley stress mpi cad s/p pci htn dm epigastric pain difficulty swallowing chest pain has resolved. bp remains elevated. rec add imdur 30mg po daily. if cp recurs would consider increasing tenormin to 50mg po daily or changing to metoprolol tartrate 25 mg po bid. if continues to have recurrent cp repeat despite med mgt and bp control, repeat cor angio may be warranted. consider adding lisinopril 5mg po daily to assist in bp mgt echo pending. Subjective Date of service: 05/02/17 Interval history: no further chest pain. still c/o abd epigastric discomfort. no sob Objective Vital Signs Temp Pulse Pulse Pulse Resp Resp BP 05/02/17 07:26 63 172/68 05/02/17 05:47 98.3 F 63 20 172/68 05/02/17 02:01 70 05/01/17 23:00 20 20 05/01/17 20:50 97.2 F L 74 20 168/62 05/01/17 16:33 165/62 05/01/17 16:24 187/81 05/01/17 16:23 98.0 F 100 H 18 188/76 05/01/17 10:00 95 H 95 H 94 H 05/01/17 08:47 98.8 F 94 H 20 160/67 Pulse Ox 05/02/17 07:26 05/02/17 05:47 97 05/02/17 02:01 05/01/17 23:00 98 05/01/17 20:50 98 05/01/17 16:33 05/01/17 16:24 05/01/17 16:23 98 05/01/17 10:00 98 05/01/17 08:47 98 - Physical Examination General: No Apparent Distress HEENT: Positive: PERRL, Normocephaly Neck: Positive: neck supple, Carotid Upstroke (2+ bilat). Negative: JVD/HJR, Bruit Cardiac: Positive: Reg Rate and Rhythm, S4 Lungs: Positive: clear to auscultation Neuro: Positive: Grossly Intact Abdomen: Positive: Soft, Tender Skin: Negative: Rash Musculoskeletal: Normal Range of Motion Extremities: Present: upper extr. pulses (2+ bilat), lower extr. pulses (2+ bilat). Absent: edema - Labs and Meds CBC 05/01/17 05/02/17 Range/Units 09:29 04:40 WBC 4.8 3.9 L (4.5-11.0) K/mm3 RBC 4.33 4.18 (3.65-5.03) M/mm3 Hgb 14.6 H 14.2 (10.1-14.3) gm/dl Hct 43.2 H 41.4 (30.3-42.9) % Plt Count 135 L 132 L (140-440) K/mm3 Lymph # 1.5 1.7 (1.2-5.4) K/mm3 [place] # 0.6 0.6 (0.0-0.8) K/mm3 Eos # 0.0 0.0 (0.0-0.4) K/mm3 Baso # 0.0 0.0 (0.0-0.1) K/mm3 Comprehensive Metabolic Panel 05/01/17 05/02/17 Range/Units 09:29 04:40 Sodium 143 141 (137-145) mmol/L Potassium 4.0 4.4 (3.6-5.0) mmol/L Chloride 103.1 104.8 (98-107) mmol/L Carbon Dioxide 24 21 L (22-30) mmol/L BUN 10 10 (7-17) mg/dL Creatinine 0.6 L 0.6 L (0.7-1.2) mg/dL Glucose 132 H 185 H (65-100) mg/dL Calcium 9.2 8.4 (8.4-10.2) mg/dL
[2017-05-02] MEDS: PLAVIX PO SCH (10:55)
[2017-05-02] MEDS: TENORMIN PO SCH (10:55)
[2017-05-02] MEDS: IMDUR PO SCH (10:58)
[2017-05-02] MEDS: HEPARIN SUB-Q SCH ×2 (10:58→23:27)
--- NOTE | 2017-05-02 11:46 | Progress Note ---
Subjective Date of service: 05/02/17 Objective - Constitutional Vitals: Vital Signs - 12hr 05/02/17 05/02/17 05/02/17 02:01 05:47 07:26 Temperature 98.3 F Pulse Rate 70 63 63 Respiratory 20 Rate Blood Pressure 172/68 172/68 O2 Sat by Pulse 97 Oximetry 05/02/17 05/02/17 05/02/17 08:22 10:55 10:58 Temperature 97.4 F L Pulse Rate 76 76 76 Respiratory 18 Rate Blood Pressure 135/52 135/52 135/52 O2 Sat by Pulse 99 Oximetry - Labs CBC & Chem 7: 05/02/17 04:40 05/02/17 04:40 Labs: Abnormal lab results 05/01/17 05/01/17 05/02/17 Range/Units 13:34 16:42 04:40 WBC 3.9 L (4.5-11.0) K/mm3 MCV 99 H (79-97) fl MCH 34 H (28-32) pg RDW 12.4 L (13.2-15.2) % Plt Count 132 L (140-440) K/mm3 Lymph % (Auto) 45.0 H (13.4-35.0) % [place] % (Auto) 15.9 H (0.0-7.3) % Seg Neutrophils % 37.6 L (40.0-70.0) % Seg Neutrophils # 1.5 L (1.8-7.7) K/mm3 Carbon Dioxide (22-30) mmol/L Creatinine (0.7-1.2) mg/dL Glucose (65-100) mg/dL POC Glucose 115 H 236 H (70-105) 05/02/17 05/02/17 Range/Units 04:40 07:57 WBC (4.5-11.0) K/mm3 MCV (79-97) fl MCH (28-32) pg RDW (13.2-15.2) % Plt Count (140-440) K/mm3 Lymph % (Auto) (13.4-35.0) % [place] % (Auto) (0.0-7.3) % Seg Neutrophils % (40.0-70.0) % Seg Neutrophils # (1.8-7.7) K/mm3 Carbon Dioxide 21 L (22-30) mmol/L Creatinine 0.6 L (0.7-1.2) mg/dL Glucose 185 H (65-100) mg/dL POC Glucose 198 H (70-105)
--- NOTE | 2017-05-02 15:53 | Progress Note ---
Assessment and Plan - Patient Problems (1) History of coronary artery disease Current Visit: Yes Status: Acute Plan to address problem: Patient with history of coronary disease. Multiple episodes of chest pain. Patient abnormal Lexiscan scheduled for possible Wednesday. (2) Atypical chest pain Current Visit: Yes Status: Chronic Plan to address problem: Pain describes more abdominal pain. Could always be referred pain. Would treat his reflux this time. (3) Dysphagia causing pulmonary aspiration with swallowing Current Visit: No Status: Acute Plan to address problem: Scheduled for EGD (4) Diabetes mellitus, type 2 Current Visit: No Status: Chronic Plan to address problem: Fair control diabetes mellitus. We'll continue to treat with 7030 insulin. Saturating accordingly. History Interval history: Patient today states that she feels better. Her pain was mostly in her abdominal area earlier. Unlike her typical chest pain. No new events overnight. Hospitalist Physical - Constitutional Vitals: Temp Pulse Resp BP Pulse Ox 97.4 F L 88 20 135/52 99 05/02/17 08:22 05/02/17 15:38 05/02/17 15:38 05/02/17 10:58 05/02/17 08:22 General appearance: Present: no acute distress - EENT Eyes: Present: PERRL, EOM intact ENT: clear oral mucosa, dentition normal, hearing decreased, poor dentition - Neck Neck: Present: supple, normal ROM - Respiratory Respiratory: bilateral: CTA - Cardiovascular Rhythm: regular Heart Sounds: Present: S1 & S2 - Extremities Extremities: no ischemia, pulses intact Extremity abnormal: edema, cyanosis Peripheral Pulses: within normal limits - Abdominal General gastrointestinal: soft, non-tender, normal bowel sounds - Integumentary Integumentary: Present: clear, warm, dry - Psychiatric Psychiatric: appropriate mood/affect - Neurologic Neurologic: CNII-XII intact Results - Labs CBC & Chem 7: 05/02/17 04:40 05/02/17 04:40 Labs: Laboratory Last Values WBC 3.9 K/mm3 (4.5-11.0) L 05/02/17 04:40 RBC 4.18 M/mm3 (3.65-5.03) 05/02/17 04:40 Hgb 14.2 gm/dl (10.1-14.3) 05/02/17 04:40 Hct 41.4 % (30.3-42.9) 05/02/17 04:40 MCV 99 fl (79-97) H 05/02/17 04:40 MCH 34 pg (28-32) H 05/02/17 04:40 MCHC 34 % (30-34) 05/02/17 04:40 RDW 12.4 % (13.2-15.2) L 05/02/17 04:40 Plt Count 132 K/mm3 (140-440) L 05/02/17 04:40 Lymph % (Auto) 45.0 % (13.4-35.0) H 05/02/17 04:40 [place] % (Auto) 15.9 % (0.0-7.3) H 05/02/17 04:40 Eos % (Auto) 0.8 % (0.0-4.3) 05/02/17 04:40 Baso % (Auto) 0.7 % (0.0-1.8) 05/02/17 04:40 Lymph # 1.7 K/mm3 (1.2-5.4) 05/02/17 04:40 [place] # 0.6 K/mm3 (0.0-0.8) 05/02/17 04:40 Eos # 0.0 K/mm3 (0.0-0.4) 05/02/17 04:40 Baso # 0.0 K/mm3 (0.0-0.1) 05/02/17 04:40 Seg Neutrophils % 37.6 % (40.0-70.0) L 05/02/17 04:40 Seg Neutrophils # 1.5 K/mm3 (1.8-7.7) L 05/02/17 04:40 Sodium 141 mmol/L (137-145) 05/02/17 04:40 Potassium 4.4 mmol/L (3.6-5.0) 05/02/17 04:40 Chloride 104.8 mmol/L (98-107) 05/02/17 04:40 Carbon Dioxide 21 mmol/L (22-30) L 05/02/17 04:40 Anion Gap 20 mmol/L 05/02/17 04:40 BUN 10 mg/dL (7-17) 05/02/17 04:40 Creatinine 0.6 mg/dL (0.7-1.2) L 05/02/17 04:40 Estimated GFR > 60 ml/min 05/02/17 04:40 BUN/Creatinine Ratio 17 % 05/02/17 04:40 Glucose 185 mg/dL (65-100) H 05/02/17 04:40 POC Glucose 175 (70-105) H 05/02/17 11:55 Calcium 8.4 mg/dL (8.4-10.2) 05/02/17 04:40 Troponin T < 0.010 ng/mL (0.00-0.029) 04/30/17 16:39 Urine Color Yellow (Yellow) 04/30/17 19:17 Urine Turbidity Clear (Clear) 04/30/17 19:17 Urine pH 6.0 (5.0-7.0) 04/30/17 19:17 Ur Specific [place] 1.021 (1.003-1.030) 04/30/17 19:17 Urine Protein <15 mg/dl mg/dL (Negative) 04/30/17 19:17 Urine Glucose (UA) Neg mg/dL (Negative) 04/30/17 19:17 Urine Ketones Neg mg/dL (Negative) 04/30/17 19:17 Urine Blood Neg (Negative) 04/30/17 19:17 Urine Nitrite Neg (Negative) 04/30/17 19:17 Urine Bilirubin Neg (Negative) 04/30/17 19:17 Urine Urobilinogen 4.0 mg/dL (<2.0) 04/30/17 19:17 Ur Leukocyte Esterase Neg (Negative) 04/30/17 19:17 Urine WBC (Auto) 2.0 /HPF (0.0-6.0) 04/30/17 19:17 Urine RBC (Auto) 1.0 /HPF (0.0-6.0) 04/30/17 19:17 U Epithel Cells (Auto) 2.0 /HPF (0-13.0) 04/30/17 19:17 Urine Mucus Few /HPF 04/30/17 19:17
--- NOTE | 2017-05-02 16:57 | Gastroenterology Progress Note ---
Assessment and Plan - Patient Problems (1) Dysphagia Current Visit: Yes Status: Acute Plan to address problem: Scheduled for EGD and dilation tomorrow. (2) Coronary artery disease Current Visit: No Status: Chronic Qualifiers: Coronary Disease-Associated Artery/Lesion type: [place] artery Associated angina: with unspecified angina (3) Dysphagia Current Visit: No Status: Chronic (4) Hypertension Current Visit: No Status: Chronic Qualifiers: Hypertension type: essential hypertension Qualified Code(s): I10 - Essential (primary) hypertension (5) Insulin dependent diabetes mellitus Current Visit: No Status: Chronic (6) Lacunar infarction Current Visit: No Status: Chronic Subjective Date of service: 05/02/17 Principal diagnosis: dysphagia Interval history: Feels ok. Has dysphagia, but is able to "force herself to eat." Objective - Constitutional Vitals: Temp Pulse Resp BP Pulse Ox 97.4 F L 74 20 135/52 99 05/02/17 08:22 05/02/17 16:09 05/02/17 15:38 05/02/17 10:58 05/02/17 08:22 General appearance: no acute distress - EENT ENT: hearing intact, clear oral mucosa - Respiratory Respiratory effort: normal Respiratory: bilateral: CTA - Cardiovascular Rhythm: regular - Gastrointestinal General gastrointestinal: Present: soft, non-tender, non-distended, normal bowel sounds - Neurologic Neurological: alert and oriented x3 - Labs CBC & Chem 7: 05/02/17 04:40 05/02/17 04:40 Labs: Laboratory Results - last 24 hr 05/01/17 05/02/17 05/02/17 22:23 04:40 04:40 WBC 3.9 L RBC 4.18 Hgb 14.2 Hct 41.4 MCV 99 H MCH 34 H MCHC 34 RDW 12.4 L Plt Count 132 L Lymph % (Auto) 45.0 H [place] % (Auto) 15.9 H Eos % (Auto) 0.8 Baso % (Auto) 0.7 Lymph # 1.7 [place] # 0.6 Eos # 0.0 Baso # 0.0 Seg Neutrophils % 37.6 L Seg Neutrophils # 1.5 L Sodium 141 Potassium 4.4 Chloride 104.8 Carbon Dioxide 21 L Anion Gap 20 BUN 10 Creatinine 0.6 L Estimated GFR > 60 BUN/Creatinine Ratio 17 Glucose 185 H POC Glucose 76 Calcium 8.4 05/02/17 05/02/17 05/02/17 07:57 11:55 15:51 WBC RBC Hgb Hct MCV MCH MCHC RDW Plt Count Lymph % (Auto) [place] % (Auto) Eos % (Auto) Baso % (Auto) Lymph # [place] # Eos # Baso # Seg Neutrophils % Seg Neutrophils # Sodium Potassium Chloride Carbon Dioxide Anion Gap BUN Creatinine Estimated GFR BUN/Creatinine Ratio Glucose POC Glucose 198 H 175 H 134 H Calcium
[2017-05-02] MEDS: PRAVACHOL PO SCH (23:27)
[2017-05-03] MEDS: APRESOLINE IV PRN ×2 (03:15→10:24)
[2017-05-03] MEDS: D5W/0.45% NACL/KCL 20 MEQ 20 MEQ/1,000 ML BAG IV SCH (03:16)
[2017-05-03] MEDS: DUONEB *Not for PRN Use IH SCH ×4 (03:48→20:16)
[2017-05-03] MEDS: NOVOLOG SUB-Q SCH ×2 (08:15→23:26)
[2017-05-03] MEDS ORDERED: XYLOCAINE MPF 2% ONE (10:00)
[2017-05-03] MEDS: HEPARIN SUB-Q SCH ×2 (10:29→23:22)
[2017-05-03] MEDS: IMDUR PO SCH (10:29)
[2017-05-03] MEDS: TENORMIN PO SCH (10:29)
[2017-05-03] MEDS: PLAVIX PO SCH (10:29)
--- NOTE | 2017-05-03 11:57 | Progress Note ---
Assessment and Plan Assessment: Chest pain, atypical - neg card enz/no acute ecg changes CAD s/p PCI of LAD - [facility] 09/2015 showed patent LAD stent, no significant obstructive CAD Epigastric pain Dysphagia HTN DM ASA allergy Plan: Pt for EGD with dilation today. 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 Optimize anti-ischemic regimen - d/c atenolol and initiate lopressor 25mg PO BID. Consider adding lisinopril 5mg po daily to assist in bp mgt. If continues to have recurrent cp repeat despite med mgt and bp control, repeat cor angio may be warranted. Assessment and plan reviewed with pt at bedside. The patient has been seen in conjunction with Dr. Larios who agrees with the assessment and plan of care. Subjective Date of service: 05/03/17 Principal diagnosis: dysphagia Interval history: Pt resting in bed, c/o intermittent chest pain with no clear pattern which she reports is chronic and unchanged from baseline. Also c/o abdominal pain. Objective Last Vital Signs Temp 98.5 F 05/03/17 09:47 Pulse 74 05/03/17 10:29 Resp 22 05/03/17 09:47 BP 161/62 05/03/17 10:29 Pulse Ox 96 05/03/17 09:47 - Physical Examination General: No Apparent Distress HEENT: Positive: PERRL, Normocephaly Neck: Positive: neck supple, Carotid Upstroke (2+ bilat). Negative: JVD/HJR, Bruit Cardiac: Positive: Reg Rate and Rhythm, S1/S2 Lungs: Positive: clear to auscultation Neuro: Positive: Grossly Intact Abdomen: Positive: Soft. Negative: Tender Skin: Negative: Rash Musculoskeletal: Normal Range of Motion Extremities: Present: upper extr. pulses (2+ bilat), lower extr. pulses (2+ bilat). Absent: edema - Telemetry EKG Rhythm: Sinus Rhythm
[2017-05-03] MEDS: NACL 0.9% 1000 ML 1,000 ML IV SCH ×2 (17:04→20:26)
--- NOTE | 2017-05-03 17:08 | Progress Note ---
Assessment and Plan - Patient Problems (1) History of coronary artery disease Current Visit: Yes Status: Acute Plan to address problem: Chest pain resolved only epigastric pain now. Patient has negative cardiac isoenzymes. No EKG changes. Left heart cath last year showed patent LAD. Also Lexiscan negative for ischemia. Optimize medical management. (2) Atypical chest pain Current Visit: Yes Status: Chronic Plan to address problem: Is likely secondary to epigastric pain and dysphagia EGD planned for a.m. (3) Dysphagia causing pulmonary aspiration with swallowing Current Visit: No Status: Acute Plan to address problem: Scheduled for EGD (4) Diabetes mellitus, type 2 Current Visit: No Status: Chronic Plan to address problem: Fair control diabetes mellitus. We'll continue to treat with 7030 insulin. Saturating accordingly. History Interval history: Patient complains of pain today would like something for pain. Spoke to Dr. Cherry about procedure tomorrow. A sterile questions patient had to his satisfaction. Hospitalist Physical - Constitutional Vitals: Temp Pulse Resp BP Pulse Ox 98.7 F 78 29 H 190/74 98 05/03/17 16:57 05/03/17 16:57 05/03/17 16:57 05/03/17 16:57 05/03/17 16:57 General appearance: Present: no acute distress - EENT Eyes: Present: PERRL, EOM intact ENT: hearing intact, clear oral mucosa, dentition normal - Neck Neck: Present: supple, normal ROM - Respiratory Respiratory effort: normal Respiratory: bilateral: CTA - Cardiovascular Rhythm: regular Heart Sounds: Present: S1 & S2 - Extremities Extremities: no ischemia, pulses intact, pulses symmetrical, No edema, Full ROM , abnormal - Abdominal General gastrointestinal: soft, non-tender, non-distended, normal bowel sounds, no hypoactive bowel sounds, no absent bowel sounds, no hepatomegaly, no splenomegaly, no mass, no hernia - Integumentary Integumentary: Present: clear, warm, dry, normal turgor. Absent: erythema, jaundice, clammy, decreased turgor - Psychiatric Psychiatric: appropriate mood/affect, intact judgment & insight, cooperative - Neurologic Neurologic: CNII-XII intact, moves all extremities Results - Labs CBC & Chem 7: 05/02/17 04:40 05/02/17 04:40 Labs: Laboratory Last Values WBC 3.9 K/mm3 (4.5-11.0) L 05/02/17 04:40 RBC 4.18 M/mm3 (3.65-5.03) 05/02/17 04:40 Hgb 14.2 gm/dl (10.1-14.3) 05/02/17 04:40 Hct 41.4 % (30.3-42.9) 05/02/17 04:40 MCV 99 fl (79-97) H 05/02/17 04:40 MCH 34 pg (28-32) H 05/02/17 04:40 MCHC 34 % (30-34) 05/02/17 04:40 RDW 12.4 % (13.2-15.2) L 05/02/17 04:40 Plt Count 132 K/mm3 (140-440) L 05/02/17 04:40 Lymph % (Auto) 45.0 % (13.4-35.0) H 05/02/17 04:40 [place] % (Auto) 15.9 % (0.0-7.3) H 05/02/17 04:40 Eos % (Auto) 0.8 % (0.0-4.3) 05/02/17 04:40 Baso % (Auto) 0.7 % (0.0-1.8) 05/02/17 04:40 Lymph # 1.7 K/mm3 (1.2-5.4) 05/02/17 04:40 [place] # 0.6 K/mm3 (0.0-0.8) 05/02/17 04:40 Eos # 0.0 K/mm3 (0.0-0.4) 05/02/17 04:40 Baso # 0.0 K/mm3 (0.0-0.1) 05/02/17 04:40 Seg Neutrophils % 37.6 % (40.0-70.0) L 05/02/17 04:40 Seg Neutrophils # 1.5 K/mm3 (1.8-7.7) L 05/02/17 04:40 Sodium 141 mmol/L (137-145) 05/02/17 04:40 Potassium 4.4 mmol/L (3.6-5.0) 05/02/17 04:40 Chloride 104.8 mmol/L (98-107) 05/02/17 04:40 Carbon Dioxide 21 mmol/L (22-30) L 05/02/17 04:40 Anion Gap 20 mmol/L 05/02/17 04:40 BUN 10 mg/dL (7-17) 05/02/17 04:40 Creatinine 0.6 mg/dL (0.7-1.2) L 05/02/17 04:40 Estimated GFR > 60 ml/min 05/02/17 04:40 BUN/Creatinine Ratio 17 % 05/02/17 04:40 Glucose 185 mg/dL (65-100) H 05/02/17 04:40 POC Glucose 184 (70-105) H 05/03/17 11:49 Calcium 8.4 mg/dL (8.4-10.2) 05/02/17 04:40 Troponin T < 0.010 ng/mL (0.00-0.029) 04/30/17 16:39 Urine Color Yellow (Yellow) 04/30/17 19:17 Urine Turbidity Clear (Clear) 04/30/17 19:17 Urine pH 6.0 (5.0-7.0) 04/30/17 19:17 Ur Specific [place] 1.021 (1.003-1.030) 04/30/17 19:17 Urine Protein <15 mg/dl mg/dL (Negative) 04/30/17 19:17 Urine Glucose (UA) Neg mg/dL (Negative) 04/30/17 19:17 Urine Ketones Neg mg/dL (Negative) 04/30/17 19:17 Urine Blood Neg (Negative) 04/30/17 19:17 Urine Nitrite Neg (Negative) 04/30/17 19:17 Urine Bilirubin Neg (Negative) 04/30/17 19:17 Urine Urobilinogen 4.0 mg/dL (<2.0) 04/30/17 19:17 Ur Leukocyte Esterase Neg (Negative) 04/30/17 19:17 Urine WBC (Auto) 2.0 /HPF (0.0-6.0) 04/30/17 19:17 Urine RBC (Auto) 1.0 /HPF (0.0-6.0) 04/30/17 19:17 U Epithel Cells (Auto) 2.0 /HPF (0-13.0) 04/30/17 19:17 Urine Mucus Few /HPF 04/30/17 19:17
--- NOTE | 2017-05-03 17:15 | Anesthesia Consultation ---
Anesthesia Consult and Med Hx Date of service: 05/03/17 - Airway Anesthetic Teeth Evaluation: Poor (multiple missing teeth) ROM Head & Neck: Adequate Mental/Hyoid Distance: Adequate Mallampati Class: Class II Intubation Access Assessment: Probably Good - Pre-Operative Health Status ASA Pre-Surgery Classification: ASA3 Proposed Anesthetic Plan: MAC - Pulmonary Hx Smoking: No Hx Asthma: Yes SOB: Yes (Pulmonary HTN) Hx Pneumonia: Yes Hx Sleep Apnea: No - Cardiovascular System Hx Hypertension: Yes Hx Coronary Artery Disease: Yes Hx Heart Attack/AMI: Yes Hx Angina: Yes (neg cardiac enzymes) Hx Percutaneous Transluminal Coronary Angioplasty (PTCA): Yes (2015) Hx Valvular Heart Disease: No Hx Heart Murmur: No Hx Peripheral Vascular Disease: No - Central Nervous System Hx Neuromuscular Disorder: (AMS) Hx Back Pain: Yes (R/T FALL) Hx Psychiatric Problems: No - Gastrointestinal Hx Ulcer: No Hx Gastroesophageal Reflux Disease: Yes (dysphagea, difficulty swallowing) - Endocrine Hx End Stage Renal Disease: No Hx Cirrhosis: No Hx Insulin Dependent Diabetes: Yes Hx Thyroid Disease: No Hx Hypothyroidism: No Hx Hyperthyroidism: No - Hematic Hx Anemia: Yes - Other Systems Hx Cancer: No
[2017-05-03] MEDS ORDERED: DIPRIVAN 10 MG/ML IV ONE (17:16)
--- NOTE | 2017-05-03 17:16 | Anesthesia Day of Surgery ---
Anesthesia Day of Surgery - Day of Surgery Patient Examined: Yes Patient H&P Reviewed: Yes Patient is NPO: Yes Beta Blockers: Yes Cardiac Clearance: Yes
--- NOTE | 2017-05-03 17:51 | Operative Report ---
Operative Report Operative Report: Date of procedure: 05/03/2017 Procedure: Esophagogastroduodenoscopy with balloon dilation of the esophagus Preprocedure diagnosis: Dysphagia to solid foods Post procedure diagnosis: Peptic stricture at the distal esophagus Endoscopist: Dr. Cherry Anesthesia: Monitored anesthesia care per anesthesia department Medications: Propofol per anesthesia Estimated blood loss: [0] After careful discussion of the nature and purpose of the procedure as well as details the technique risks benefits and alternatives consent was obtained. The patient was placed in the left lateral decubitus position and medicated per anesthesia. The tip of the [employer] EQ 570 video scope was passed per orum under direct vision into the esophagus and advanced into the stomach and descending duodenum. The descending duodenum the duodenal bulb and pylorus were symmetrical and normal. The scope was withdrawn into the stomach and the stomach then gently insufflated with air. The antrum was normal. The stomach was further insufflated and the scope was then retroflexed and partially withdrawn. The cardia, fundus, and body of the stomach were within normal limits and easily distensible.The scope was then withdrawn in the forward position. The esophagogastric junction was at 37 cm. The esophageal body was normal throughout. A mild peptic stricture was present at the esophagogastric junction which formed a shelflike appearance. The stricture however was not very tired and allowed easy such of the scope. The patient was performed from 15 mm to 18 mm with a [id number] balloon. The pressure was not particularly tight at the largest level of the balloon. The procedure was was well tolerated and the patient was observed in recovery. Impressions: A mild peptic stricture at the esophagogastric junction. Normal upper digestive tract otherwise. Status post dilation. Plan: Dilate when necessary area and re advance diet. The patient may go home at your discretion. Electronically signed: Russell Cherry MD
[2017-05-03] MEDS: PERCOCET 5/325 PO PRN (20:46)
[2017-05-03] MEDS: PRAVACHOL PO SCH (23:23)
[2017-05-04] MEDS: DUONEB *Not for PRN Use IH SCH ×4 (02:22→19:36)
--- NOTE | 2017-05-04 08:13 | Progress Note ---
Subjective Date of service: 05/04/17 Principal diagnosis: dysphagia Objective - Constitutional Vitals: Vital Signs - 12hr 05/03/17 05/03/17 05/04/17 20:17 20:25 01:52 Temperature Pulse Rate Pulse Rate [ 73 75 Anterior Bilateral Throughout] Pulse Rate [ 75 Apical] Respiratory 20 Rate Respiratory 18 18 Rate [Anterior Bilateral Throughout] Blood Pressure O2 Sat by Pulse 97 Oximetry 05/04/17 03:52 Temperature 98.4 F Pulse Rate 71 Pulse Rate [ Anterior Bilateral Throughout] Pulse Rate [ Apical] Respiratory 18 Rate Respiratory Rate [Anterior Bilateral Throughout] Blood Pressure 160/75 O2 Sat by Pulse 98 Oximetry - Labs CBC & Chem 7: 05/02/17 04:40 05/02/17 04:40 Labs: Abnormal lab results 05/03/17 05/03/17 05/03/17 Range/Units 08:12 11:49 19:43 POC Glucose 166 H 184 H 212 H (70-105) 05/03/17 Range/Units 21:57 POC Glucose 253 H (70-105)
[2017-05-04] MEDS: HEPARIN SUB-Q SCH ×2 (09:32→22:04)
[2017-05-04] MEDS: NOVOLOG SUB-Q SCH ×5 (09:42→22:05)
[2017-05-04] MEDS: PLAVIX PO SCH (09:43)
[2017-05-04] MEDS: IMDUR PO SCH (09:43)
--- NOTE | 2017-05-04 10:39 | Gastroenterology Progress Note ---
<CARLO LUZ - Last Filed: 05/04/17 10:42> Assessment and Plan 1.dysphagia -s/p EGD yesterday that revealed a mild peptic stricture at the GE junction (s/ p dilation), otherwise normal -pt tolerating diet this am w/o difficultly -advance diet as tolerated -no further GI recommendations at this time -will sign off, please call if needed Subjective Date of service: 05/04/17 Principal diagnosis: dysphagia Interval history: Patient sitting up in bedside chair this am w/o distress. Tolerated eating breakfast this am w/o difficultly. Objective - Constitutional Vitals: Temp Pulse Resp BP Pulse Ox 98.8 F 76 20 176/69 99 05/04/17 08:00 05/04/17 09:43 05/04/17 08:00 05/04/17 09:43 05/04/17 08:00 General appearance: no acute distress - Respiratory Respiratory: bilateral: CTA - Cardiovascular Rhythm: regular Heart Sounds: Present: S1 & S2 - Gastrointestinal General gastrointestinal: Present: soft, non-tender, non-distended, normal bowel sounds - Integumentary Integumentary: Present: warm, dry - Labs CBC & Chem 7: 05/02/17 04:40 05/02/17 04:40 Labs: Laboratory Results - last 24 hr 05/03/17 05/03/17 05/03/17 11:49 19:43 21:57 POC Glucose 184 H 212 H 253 H 05/04/17 09:02 POC Glucose 198 H <JAUN CHO - Last Filed: 05/04/17 15:34> Assessment and Plan - Patient Problems (1) Dysphagia Current Visit: Yes Status: Acute Plan to address problem: The patient is stable post EGD and dilation of a mild peptic stricture. Will see in f/u in 3 months as outpatient. Jaun Cho MD (2) Coronary artery disease Current Visit: No Status: Chronic Qualifiers: Coronary Disease-Associated Artery/Lesion type: [place] artery Associated angina: with unspecified angina (3) Dysphagia Current Visit: No Status: Chronic (4) Hypertension Current Visit: No Status: Chronic Qualifiers: Hypertension type: essential hypertension Qualified Code(s): I10 - Essential (primary) hypertension (5) Insulin dependent diabetes mellitus Current Visit: No Status: Chronic (6) Lacunar infarction Current Visit: No Status: Chronic Objective - Constitutional Vitals: Temp Pulse Resp BP Pulse Ox 98.6 F 90 20 113/51 98 05/04/17 11:43 05/04/17 11:43 05/04/17 11:43 05/04/17 11:43 05/04/17 11:43 - Labs CBC & Chem 7: 05/02/17 04:40 05/02/17 04:40 Labs: Laboratory Results - last 24 hr 05/03/17 05/03/17 05/04/17 19:43 21:57 09:02 POC Glucose 212 H 253 H 198 H 05/04/17 11:43 POC Glucose 176 H
--- NOTE | 2017-05-04 10:50 | Progress Note ---
Assessment and Plan Assessment: Chest pain, atypical - currently resolved; neg card enz/no acute ecg changes CAD s/p PCI of LAD - [facility] 09/2015 showed patent LAD stent, no significant obstructive CAD Epigastric pain Dysphagia - s/p EGD with dilation HTN DM ASA allergy Plan: Chest pain resolved. Currently stable cardiac status. Pt may discharge home from cardiology standpoint. Recommend follow up in our office with Cynthia Marcelino NP, within 1-2 weeks of hospital discharge ([phone]). Assessment and plan reviewed with pt at bedside. The patient has been seen in conjunction with Dr. Larios who agrees with the assessment and plan of care. Subjective Date of service: 05/04/17 Principal diagnosis: dysphagia Interval history: Pt resting in bed, denies any current cardiac complaints. c/o intermittent abdominal pain and sore throat. Objective Last Vital Signs Temp 98.8 F 05/04/17 08:00 Pulse 76 05/04/17 09:43 Resp 20 05/04/17 08:00 BP 176/69 05/04/17 09:43 Pulse Ox 99 05/04/17 08:00 - Physical Examination General: No Apparent Distress HEENT: Positive: PERRL, Normocephaly Neck: Positive: neck supple, Carotid Upstroke (2+ bilat). Negative: JVD/HJR, Bruit Cardiac: Positive: Reg Rate and Rhythm, S1/S2 Lungs: Positive: clear to auscultation Neuro: Positive: Grossly Intact Abdomen: Positive: Soft. Negative: Tender Skin: Negative: Rash Musculoskeletal: Normal Range of Motion Extremities: Present: upper extr. pulses (2+ bilat), lower extr. pulses (2+ bilat). Absent: edema - Telemetry EKG Rhythm: Sinus Rhythm
--- NOTE | 2017-05-04 11:50 | Discharge Summary ---
Providers - Providers Date of Admission: 05/01/17 07:58 Date of discharge: 05/05/17 Attending physician: MIRIAN VARGAS 05/01/17 Consult to Cardiac Rehabilitation [CONS] Routine Reason For Exam: Phase I 05/01/17 08:36 Consult to Physician [CONS] Routine Consulting Provider: JAUN CHO Reason For Exam: odynophagia Place consult to:: answering service Notified:: yes Phone number called:: [phone] If yes, spoke with:: aaron Time called:: 09:10 Comment:: radha 05/01/17 17:29 Consult to Physician [CONS] Routine Consulting Provider: SILVIO MILLER Reason For Exam: chest pain Place consult to:: answering service. Notified:: yes Phone number called:: [phone] If yes, spoke with:: chantel Time called:: 18:10 Comment:: radha Primary care physician: FREDI BARROS Hospitalization Condition: Stable Hospital course: Patient is a 81-year-old black female with past medical history of HTN, DM, GERD , OA, Asthma, Dementia, CAD S/P Stent placement presents to ED with complaints of sensation of food being stuck in her throat for about two weeks, chronic dizziness and chest pain. Discharge diagnosis and management: Chest pain, - atypical - currently resolved; likely from GERD - neg CE, no acute ecg changes - MPI stress test showed old ischemia no new changes - placed on PPI - She will follow up in cardiology office with Cynthia Marcelino NP, within 1-2 weeks of hospital discharge ([phone]) CAD s/p PCI of LAD - [facility] 09/2015 showed patent LAD stent, no significant obstructive CAD - cont plavix, statin, resume BB - pt is allergic to aspirin Epigastric pain with Dysphagia - likley from esophageal stricture - s/p EGD with dilation HTN, uncontrolled - cont amlodipine imdur, resumed atenolol today - hydralazine iv prn DM type 2 - conr long acting insulin and SSI Physical debility/deconditioning/Imbalance - likely from autonomic imbalance from diabetic retinopathy and neuropathy - s/p PT eval, recommended HH PT/OT Dvt Px - SCD Physical exam: General: No Apparent Distress HEENT: Positive: PERRL, Normocephaly Neck: Positive: neck supple, Negative: JVD/HJR, Bruit Cardiac: Positive: Reg Rate and Rhythm, S1/S2 Lungs: Positive: clear to auscultation Neuro: Positive: Grossly Intact motor and sensory Abdomen: Positive: Soft. Negative: Tender Skin: Negative: Rash Musculoskeletal: Normal Range of Motion Extremities: + pulses b/l, no edema Disposition: DC/TX-06 HOME [facility] Time spent for discharge: 32 minutes Core Measure Documentation - Palliative Care Palliative Care/ Comfort Measures: Not Applicable - Core Measures Any of the following diagnoses?: none Exam - Constitutional Vitals: Temp Pulse Resp BP Pulse Ox 98.8 F 76 20 176/69 99 05/04/17 08:00 05/04/17 09:43 05/04/17 08:00 05/04/17 09:43 05/04/17 08:00 General appearance: Present: no acute distress (elderly female) - EENT Eyes: Present: PERRL ENT: hearing intact, clear oral mucosa - Neck Neck: Present: supple, normal ROM - Respiratory Respiratory effort: normal Respiratory: bilateral: CTA - Cardiovascular Heart Sounds: Present: S1 & S2. Absent: rub, click - Extremities Extremities: pulses symmetrical, No edema Peripheral Pulses: within normal limits - Abdominal General gastrointestinal: Present: soft, non-tender, non-distended, normal bowel sounds - Integumentary Integumentary: Present: clear, warm, dry - Musculoskeletal Musculoskeletal: gait normal, strength equal bilaterally - Psychiatric Psychiatric: appropriate mood/affect, intact judgment & insight - Neurologic Neurologic: CNII-XII intact, moves all extremities Plan Activity: advance as tolerated, fall precautions Weight Bearing Status: Weight Bear as Tolerated Diet: low fat, low salt Follow up with: FREDI BARROS MD [Primary Care Provider] - 3-5 Days Prescriptions: ALBUTEROL NEB's [Proventil 0.083% NEBS] 2.5 mg IH Q4HRT PRN #30 nebu PRN Reason: Shortness Of Breath Amlodipine Besylate [Norvasc] 10 mg PO DAILY #30 tablet Atenolol [Tenormin] 25 mg PO DAILY #30 tablet ISOSORBIDE MONOnitrate [Imdur ER] 30 mg PO QDAY #30 tablet Lisinopril [Zestril TAB] 10 mg PO QDAY #30 tablet Pantoprazole [Protonix] 40 mg PO QDAY #30 tablet
[2017-05-04] MEDS: NACL 0.9% 1000 ML 1,000 ML IV SCH (17:06)
[2017-05-04] MEDS: NORVASC PO SCH (17:07)
[2017-05-04] MEDS: TENORMIN PO SCH (17:07)
[2017-05-04] MEDS: PERCOCET 5/325 PO PRN (21:56)
[2017-05-04] MEDS: PRAVACHOL PO SCH (22:04)
[2017-05-05] MEDS: APRESOLINE IV PRN (03:05)
[2017-05-05] MEDS: NOVOLOG SUB-Q SCH ×2 (08:39→11:30)
[2017-05-05 08:59] VITALS: BP 167/71
[2017-05-05] MEDS: NORVASC PO SCH (09:44)
[2017-05-05] MEDS: TENORMIN PO SCH (09:44)
[2017-05-05] MEDS: HEPARIN SUB-Q SCH (09:44)
[2017-05-05] MEDS: IMDUR PO SCH (09:44)
[2017-05-05] MEDS: PLAVIX PO SCH (09:44)
--- NOTE | 2017-05-05 09:56 | Progress Note ---
Assessment and Plan Chest pain, - atypical - currently resolved; likely from GERD - neg CE, no acute ecg changes - MPI stress test showed old ischemia no new changes - place on PPI CAD s/p PCI of LAD - [facility] 09/2015 showed patent LAD stent, no significant obstructive CAD - cont plavix, statin, resume BB - pt is allergic to aspirin Epigastric pain with Dysphagia - likley from esophageal stricture - s/p EGD with dilation HTN, uncontrolled - cont amlodipine imdur, resumed atenolol today - hydralazine iv prn DM type 2 - conr long acting insulin and SSI Physical debility/deconditioning/Imbalance - will consult PT for further recommendation Dvt Px - SCD Physical exam: General: No Apparent Distress HEENT: Positive: PERRL, Normocephaly Neck: Positive: neck supple, Negative: JVD/HJR, Bruit Cardiac: Positive: Reg Rate and Rhythm, S1/S2 Lungs: Positive: clear to auscultation Neuro: Positive: Grossly Intact motor and sensory Abdomen: Positive: Soft. Negative: Tender Skin: Negative: Rash Musculoskeletal: Normal Range of Motion Extremities: + pulses b/l, no edema Subjective Date of service: 05/04/17 Principal diagnosis: dysphagia Interval history: Pt seen and examined staes she still feels very tired and imbalance when stands up able to tolerate GI soft diet today BP still uncontrolled Objective - Constitutional Vitals: Vital Signs - 12hr 05/05/17 05/05/17 05/05/17 01:32 02:29 03:05 Temperature Pulse Rate 63 72 Pulse Rate [ 63 Apical] Respiratory 20 Rate Blood Pressure 166/72 O2 Sat by Pulse 97 Oximetry 05/05/17 05/05/17 05/05/17 04:02 07:32 08:58 Temperature 98.4 F 98.6 F Pulse Rate 73 84 Pulse Rate [ Apical] Respiratory 18 18 Rate Blood Pressure 136/55 167/71 O2 Sat by Pulse 98 Oximetry 05/05/17 09:44 Temperature Pulse Rate 73 Pulse Rate [ Apical] Respiratory Rate Blood Pressure 167/71 O2 Sat by Pulse Oximetry - Labs CBC & Chem 7: 05/02/17 04:40 05/02/17 04:40 Labs: Abnormal lab results 05/04/17 05/04/17 05/04/17 Range/Units 11:43 16:03 21:35 POC Glucose 176 H 120 H 121 H (70-105) 05/05/17 Range/Units 07:39 POC Glucose 134 H (70-105)
--- NOTE | 2017-05-05 10:00 | Progress Note ---
Assessment and Plan Chest pain, atypical - currently resolved; neg card enz/no acute ecg changes CAD s/p PCI of LAD - [facility] 09/2015 showed patent LAD stent, no significant obstructive CAD Epigastric pain Dysphagia - s/p EGD with dilation HTN DM ASA allergy Plan: Chest pain resolved. Currently stable cardiac status. Pt may discharge home from cardiology standpoint. Recommend follow up in our office with Cynhtia Marcelino NP, within 1-2 weeks of hospital discharge ([phone]). Assessment and plan reviewed with pt at bedside. The patient has been seen in conjunction with Dr. Larios who agrees with the assessment and plan of care. Subjective Date of service: 05/05/17 Principal diagnosis: dysphagia Interval history: Patient is sitting up on the edge of the bed. Feels okay. Awaiting discharge today. Objective Last Vital Signs Temp 98.6 F 05/05/17 07:32 Pulse 73 05/05/17 10:00 Resp 18 05/05/17 07:32 BP 167/71 05/05/17 09:44 Pulse Ox 98 05/05/17 10:00 - Physical Examination General: No Apparent Distress HEENT: Positive: PERRL, Normocephaly Neck: Positive: neck supple, Carotid Upstroke (2+ bilat). Negative: JVD/HJR, Bruit Cardiac: Positive: Reg Rate and Rhythm, S1/S2 Lungs: Positive: clear to auscultation Neuro: Positive: Grossly Intact Abdomen: Positive: Soft. Negative: Tender Skin: Negative: Rash Musculoskeletal: Normal Range of Motion Extremities: Present: upper extr. pulses (2+ bilat), lower extr. pulses (2+ bilat). Absent: edema - Telemetry EKG Rhythm: Sinus Rhythm
[2017-05-05] MEDS ORDERED: ZESTRIL PO SCH (11:00)
[2017-05-05] MEDS ORDERED: IMDUR PO SCH (11:00)
== END 2017-05-05 19:35 | disposition home health service (06) | DRG 392 ==
LOC: ED 10:58 → 2B-ACE 05-01 07:58
PROVIDERS: ADMIT Internal Medicine Geriatric Medicine; ATTEND Internal Medicine
PROC: 0D748ZZ Dilation of Esophagogastric Junction, Via Natural or Artificial Opening Endoscopic (ICD-10-PCS; principal; 2017-05-03)
DX: K21.9 Gastro-esophageal reflux disease without esophagitis (principal); K22.2 Esophageal obstruction; I16.0 Hypertensive urgency; M19.90 Unspecified osteoarthritis, unspecified site; J45.909 Unspecified asthma, uncomplicated; F03.90 Unspecified dementia, unspecified severity, without behavioral disturbance, psychotic disturbance, mood disturbance, and anxiety; E11.9 Type 2 diabetes mellitus without complications; D64.9 Anemia, unspecified; I25.10 Atherosclerotic heart disease of native coronary artery without angina pectoris; I10 Essential (primary) hypertension; Z79.4 Long term (current) use of insulin; Z88.6 Allergy status to analgesic agent; Z90.710 Acquired absence of both cervix and uterus; Z95.5 Presence of coronary angioplasty implant and graft
CPT/HCPCS: 36415; 71275; 74174; 78452; 80048; 81001; 82962; 84484; 85025; 93005; 93010; 93017; 93306; 94640; 96374; A9270-GY; A9502; C1726; C1769; G8978-GP; G8979-GP; G8980-GP; J0360; J1644; J1815; J2704; J2785; J7030; Q9967

== ENCOUNTER 2017-07-29 23:41 | Emergency (ER) | payer MEDICARE, MEDICAID ==
--- NOTE | 2017-07-30 00:49 | XRay Report ---
FINAL REPORT PROCEDURE: XR CHEST ROUTINE 2V TECHNIQUE: PA and lateral chest radiographs were obtained. CPT 21500 HISTORY: sob COMPARISON: Prior chest x-ray 05/17/2016 FINDINGS: The lungs are hypoventilated. Diaphragms are elevated. There appears to be a small amount of basilar atelectasis. Lungs otherwise are clear. No pulmonary edema pleural effusions or pneumothorax are seen. No acute bony abnormalities are identified. The heart appears to be mildly enlarged IMPRESSION: Lungs are hypoventilated. There is mild cardiomegaly. Small amount of basilar atelectasis is seen. No other abnormalities are identified..
[2017-07-30 01:16] LABS: Basophils % (Auto) 0.5 % (0.0-1.8); Eosinophils % (Auto) 0.6 % (0.0-4.3); Hematocrit 36.1 % (30.3-42.9); Hemoglobin 12.2 gm/dl (10.1-14.3); Lymphocytes # (Auto) 1.8 K/mm3 (1.2-5.4); Lymphocytes % (Auto) 39.1 % (13.4-35.0); Mean Corpuscular HGB Conc 34 % (30-34); Mean Corpuscular Hemoglobin 34 pg (28-32); Mean Corpuscular Volume 100 fl (79-97); Monocytes # (Auto) 0.5 K/mm3 (0.0-0.8); Monocytes % (Auto) 11.5 % (0.0-7.3); Platelet Count 170 K/mm3 (140-440); Red Blood Count 3.62 M/mm3 (3.65-5.03); Red Cell Distribution Width 13.2 % (13.2-15.2)
[2017-07-30 01:34] LABS: Alanine Aminotransferase 13 units/L (7-56); BUN/Creatinine Ratio 17; Blood Urea Nitrogen 15 mg/dL (7-17); Calcium 9.1 mg/dL (8.4-10.2); Hemolysis Index 10
[2017-07-30 02:05] LABS: Bilirubin,Urine NEG (Negative); Blood,Urine NEG (Negative); Calcium Oxalate Crystals,Urine 2+; Color,Urine Yellow (Yellow); Hyaline Casts,Urine 88 /LPF; Mucus,Urine 2+ /HPF; Protein,Urine <15 mg/dL mg/dL (Negative)
--- NOTE | 2017-07-30 08:20 | Emergency Department Report ---
ED General Adult HPI - General Chief complaint: Abdominal Pain Stated complaint: CHEST PAIN / ABD PAIN Time Seen by Provider: 07/30/17 08:09 Source: patient, family Mode of arrival: Ambulatory Limitations: Physical Limitation - History of Present Illness Initial comments: Patient is a poor historian history of esophageal stricture status post dilation by GI in the recent past. History of atypical chest pain with GERD. History of CAD with stents. History of hypertension and diabetes. Patient's history sitting intermittent chest pain with abdominal pain with some intermittent nausea and vomiting. x 3 days She denies any black or bloody stool but is unable to describe the chest pain thinks it is similar to previous not sure if that happens with rest or exertion here for evaluation of complaints of intermittent chest pain or abdominal pain no syncope no other complaints no shortness of breath no pedal edema no focal neural complaints -: days(s) Location: chest, abdomen Severity scale (0 -10): 0 Associated Symptoms: denies other symptoms. denies: headaches, loss of appetite , malaise, nausea/vomiting, rash, seizure, shortness of breath, syncope, weakness - Related Data Home Medications Medication Instructions Recorded Confirmed Last Taken Insulin NPH/Regular [NovoLIN 70/30] 20 unit SQ BIDDIAB 01/15/17 05/01/17 Previous Rx's Medication Instructions Recorded Last Taken Type Clopidogrel [Plavix] 75 mg PO QDAY #30 tablet 01/19/17 04/30/17 Rx Pravastatin [Pravachol] 40 mg PO QHS #30 tablet 01/19/17 04/30/17 Rx ALBUTEROL NEB's [Proventil 0.083% 2.5 mg IH Q4HRT PRN #30 nebu 05/04/17 Unknown Rx NEBS] Amlodipine Besylate [Norvasc] 10 mg PO DAILY #30 tablet 05/04/17 Unknown Rx Atenolol [Tenormin] 25 mg PO DAILY #30 tablet 05/04/17 Unknown Rx Pantoprazole [Protonix] 40 mg PO QDAY #30 tablet 05/04/17 Unknown Rx ISOSORBIDE MONOnitrate [Imdur ER] 30 mg PO QDAY #30 tablet 05/05/17 Unknown Rx Lisinopril [Zestril TAB] 10 mg PO QDAY #30 tablet 05/05/17 Unknown Rx Allergies Allergy/AdvReac Type Severity Reaction Status Date / Time aspirin Allergy Hives Verified 04/30/17 11:07 ED Review of Systems ROS: Stated complaint: CHEST PAIN / ABD PAIN Other details as noted in HPI Comment: All other systems reviewed and negative Constitutional: denies: diaphoresis, fever, malaise Eyes: denies: eye discharge, vision change ENT: denies: dental pain, hearing loss, epistaxis Respiratory: denies: shortness of breath, SOB with exertion, SOB at rest, stridor Cardiovascular: chest pain. denies: palpitations, dyspnea on exertion, orthopnea, edema, syncope, paroxysmal nocturnal dyspnea Gastrointestinal: abdominal pain Neurological: denies: headache, weakness, numbness, paresthesias, confusion, abnormal gait, vertigo ED Past Medical Hx - Past Medical History Previous Medical History?: Yes Hx Hypertension: Yes Hx Heart Attack/AMI: Yes Hx Diabetes: Yes Hx GERD: Yes Hx Arthritis: Yes Hx Asthma: Yes Hx Dementia: Yes Hx HIV: No Additional medical history: has had transfusions in the past, Gi bleed - Surgical History Past Surgical History?: Yes Hx Coronary Stent: Yes Additional Surgical History: hysterectomy, bilateral knee surgery, - Social History Smoking Status: Never Smoker Substance Use Type: None - Medications Home Medications: Home Medications Medication Instructions Recorded Confirmed Last Taken Type Insulin NPH/Regular [NovoLIN 70/30] 20 unit SQ BIDDIAB 01/15/17 05/01/17 History Clopidogrel [Plavix] 75 mg PO QDAY #30 tablet 01/19/17 05/01/17 04/30/17 Rx Pravastatin [Pravachol] 40 mg PO QHS #30 tablet 01/19/17 05/01/17 04/30/17 Rx ALBUTEROL NEB's [Proventil 0.083% 2.5 mg IH Q4HRT PRN #30 nebu 05/04/17 Unknown Rx NEBS] Amlodipine Besylate [Norvasc] 10 mg PO DAILY #30 tablet 05/04/17 Unknown Rx Atenolol [Tenormin] 25 mg PO DAILY #30 tablet 05/04/17 Unknown Rx Pantoprazole [Protonix] 40 mg PO QDAY #30 tablet 05/04/17 Unknown Rx ISOSORBIDE MONOnitrate [Imdur ER] 30 mg PO QDAY #30 tablet 05/05/17 Unknown Rx Lisinopril [Zestril TAB] 10 mg PO QDAY #30 tablet 05/05/17 Unknown Rx ED Physical Exam - General Limitations: Physical Limitation General appearance: alert, in no apparent distress, anxious - Head Head exam: Present: atraumatic, normocephalic - Eye Eye exam: Present: normal appearance, PERRL, EOMI - ENT ENT exam: Present: normal exam, normal orophraynx - Neck Neck exam: Present: normal inspection. Absent: tenderness, meningismus - Respiratory Respiratory exam: Present: normal lung sounds bilaterally. Absent: respiratory distress, wheezes, rales, rhonchi, stridor, chest wall tenderness - Cardiovascular Cardiovascular Exam: Present: regular rate, normal rhythm - GI/Abdominal GI/Abdominal exam: Present: soft. Absent: distended, tenderness, guarding, rebound, rigid, mass, pulsatile mass - Extremities Exam Extremities exam: Present: normal capillary refill. Absent: pedal edema, joint swelling, calf tenderness - Neurological Exam Neurological exam: Present: alert, oriented X3, CN II-XII intact. Absent: motor sensory deficit ED Course Vital Signs 07/29/17 07/30/17 07/30/17 23:47 02:59 03:00 Temperature 98.2 F 97.5 F L Pulse Rate 88 108 H 114 H Respiratory 18 17 25 H Rate Blood Pressure 143/71 Blood Pressure 149/88 [Right] O2 Sat by Pulse 96 99 Oximetry 07/30/17 07/30/17 07/30/17 03:16 03:30 03:46 Temperature Pulse Rate 104 H 93 H 91 H Respiratory 19 20 18 Rate Blood Pressure 149/88 135/76 135/76 Blood Pressure [Right] O2 Sat by Pulse 98 97 98 Oximetry 07/30/17 07/30/17 07/30/17 04:00 04:16 04:30 Temperature Pulse Rate 87 86 62 Respiratory 18 12 21 Rate Blood Pressure 145/75 135/76 135/76 Blood Pressure [Right] O2 Sat by Pulse 97 98 98 Oximetry 07/30/17 07/30/17 07/30/17 04:46 05:00 05:16 Temperature Pulse Rate 62 63 61 Respiratory 21 22 20 Rate Blood Pressure 149/65 149/65 132/66 Blood Pressure [Right] O2 Sat by Pulse 98 97 98 Oximetry 07/30/17 07/30/1718 05:30 05:46 06:00 Temperature Pulse Rate 59 L 60 60 Respiratory 19 18 19 Rate Blood Pressure 132/66 139/61 139/61 Blood Pressure [Right] O2 Sat by Pulse 99 98 99 Oximetry 07/30/17 07/30/17 07/30/17 06:16 06:30 06:46 Temperature Pulse Rate 64 60 61 Respiratory 18 21 22 Rate Blood Pressure 153/70 153/70 160/73 Blood Pressure [Right] O2 Sat by Pulse 100 99 99 Oximetry 07/30/17 07:27 Temperature 98 F Pulse Rate 73 Respiratory 18 Rate Blood Pressure Blood Pressure 159/73 [Right] O2 Sat by Pulse 98 Oximetry ED Medical Decision Making - Lab Data Result diagrams: 07/30/17 00:48 07/30/17 00:48 - EKG Data -: EKG Interpreted by Me - EKG Data When compared to previous EKG there are: previous EKG unavailable Interpretation: other (normal sinus rhythm nonspecific ST-T changes) - Radiology Data Radiology results: report reviewed - Medical Decision Making Chest shows cardiomegaly but no acute process troponin is negative 2-3 days, CT abdomen and pelvis shows diverticulosis no evidence of obstruction patient is tolerating by mouth laboratory studies were otherwise unremarkable symptoms show likely UTI with atypical chest pain. This had a history of GERD no evidence of acute cardiopulmonary emergency is identified at this time. no an acute abdomen at this time. Has no evidence of dysphagia or dehydration at this time she is therefore stable for outpatient follow-up for further evaluation of atypical chest pain and UTI diverticulosis Critical care attestation.: If time is entered above; I have spent that time in minutes in the direct care of this critically ill patient, excluding procedure time. ED Disposition Clinical Impression: Atypical chest pain, Diverticulosis, UTI (urinary tract infection) Disposition: -01 TO HOME OR SELFCARE Is pt being admited?: No Condition: Stable Instructions: Abdominal Pain (ED), Chest Pain (ED), Urinary Tract Infection in Women (ED), Diverticulosis (ED) Referrals: PRIMARY CARE, [Primary Care Provider] - 3-5 Days Time of Disposition: 12:05
--- NOTE | 2017-07-30 09:12 | Cat Scan Report ---
CT scan of abdomen and pelvis without IV contrast: History: Abdominal pain. Findings: Bibasilar scarring. No pleural pericardial effusion. Normal liver spleen pancreas and gallbladder. Normal adrenals kidneys and decompressed bladder. No hydronephrosis. No free intraperitoneal fluid or air. No evidence of adenopathy. Atherosclerotic aorta without aneurysm. Diverticulosis of sigmoid and ascending colon. Stool in colon. No bowel distention or wall thickening. Impression: Gaseous colon with stool in colon and diverticulosis of sigmoid and ascending colon.
[2017-07-30] MEDS ORDERED: CATAPRES PO ONE (12:20)
[2017-07-30] MEDS ORDERED: CATAPRES ONE (12:42)
[2017-07-30 13:12] VITALS: BP 172/74
== END 2017-07-30 13:12 | disposition home or self-care (01) ==
LOC: ED 23:41
DX: N39.0 Urinary tract infection, site not specified (principal); K57.90 Diverticulosis of intestine, part unspecified, without perforation or abscess without bleeding; R07.89 Other chest pain; I10 Essential (primary) hypertension; I25.2 Old myocardial infarction; E11.9 Type 2 diabetes mellitus without complications; K21.9 Gastro-esophageal reflux disease without esophagitis; M19.90 Unspecified osteoarthritis, unspecified site; J45.909 Unspecified asthma, uncomplicated; F03.90 Unspecified dementia, unspecified severity, without behavioral disturbance, psychotic disturbance, mood disturbance, and anxiety; Z88.6 Allergy status to analgesic agent; Z90.710 Acquired absence of both cervix and uterus; Z95.5 Presence of coronary angioplasty implant and graft; Z79.4 Long term (current) use of insulin
CPT/HCPCS: 36415; 71046; 74176; 80053; 81001; 82962; 84484; 85025; 87086; 93005; 93010

== ENCOUNTER 2018-04-12 00:17 | Inpatient (IN) | payer MEDICARE ==
[2018-04-12 01:07] LABS: Bacteria,Urine 1+ /HPF (Negative); Bilirubin,Urine NEG (Negative); Blood,Urine NEG (Negative); Color,Urine Yellow (Yellow); Mucus,Urine FEW /HPF; Protein,Urine <15 mg/dL mg/dL (Negative); WBC,Urine < 1.0 /HPF (0.0-6.0)
[2018-04-12 01:43] LABS: Basophils % (Auto) 0.3 % (0.0-1.8); Eosinophils % (Auto) 0.2 % (0.0-4.3); Hemoglobin 11.6 gm/dl (10.1-14.3); Lymphocytes # (Auto) 0.7 K/mm3 (1.2-5.4); Lymphocytes % (Auto) 25.5 % (13.4-35.0); Mean Corpuscular HGB Conc 32 % (30-34); Mean Corpuscular Volume 102 fl (79-97); Monocytes # (Auto) 0.3 K/mm3 (0.0-0.8); Platelet Count 138 K/mm3 (140-440); Red Blood Count 3.53 M/mm3 (3.65-5.03); Red Cell Distribution Width 13.8 % (13.2-15.2)
[2018-04-12 01:59] LABS: BUN/Creatinine Ratio 19; Blood Urea Nitrogen 13 mg/dL (7-17); Calcium 8.1 mg/dL (8.4-10.2); Hemolysis Index 10
[2018-04-12] MEDS ORDERED: D50W (25GM) Syringe IV ONE (05:17)
--- NOTE | 2018-04-12 05:19 | Emergency Department Report ---
ED Altered Mental Status HPI - General Chief Complaint: Hypoglycemia Stated Complaint: HYPOGLYCEMIA Time Seen by Provider: 04/12/18 01:10 Source: patient, EMS Mode of arrival: Stretcher Limitations: Altered Mental Status - History of Present Illness Initial Comments: 82-year-old female past medical history of diabetes on insulin,, dementia, CAD with stenting, hypertension, and GI bleed requiring blood transfusion presents to the hospital unresponsive episode. Glucose was 29 at the scene. She was provided D50 with improvement in mental status. Glucose 139 upon ED arrival. She has memory problems is oriented to self and place but not to year. Patient states that maybe she did not eat enough today but she did take her insulin. She denies any fever, nausea, vomiting, dysuria, or decreased appetite. At her baseline she has difficulty ambulating and uses a cane. - Related Data Home Medications Medication Instructions Recorded Confirmed Last Taken Atenolol [Tenormin] 25 mg PO DAILY 04/12/18 04/12/18 04/11/18 ISOSORBIDE MONOnitrate [Imdur ER] 60 mg PO QDAY 04/12/18 04/12/18 04/11/18 Insulin NPH Hum/Reg Insulin Hm 25 unit SQ BID 04/12/18 04/12/18 04/11/18 [Humulin 70-30 Vial] Lisinopril [Zestril TAB] 5 mg PO QDAY 04/12/18 04/12/18 04/11/18 Allergies Allergy/AdvReac Type Severity Reaction Status Date / Time aspirin Allergy Hives Verified 04/30/17 11:07 ED Review of Systems ROS: Stated complaint: HYPOGLYCEMIA Other details as noted in HPI Comment: All other systems reviewed and negative ED Past Medical Hx - Past Medical History Hx Hypertension: Yes Hx Heart Attack/AMI: Yes Hx Congestive Heart Failure: No Hx Diabetes: Yes Hx Deep Vein Thrombosis: No Hx Pulmonary Embolism: No Hx GERD: Yes Hx Liver Disease: No Hx Renal Disease: No Hx Sickle Cell Disease: No Hx Arthritis: Yes Hx Kidney Stones: No Hx Asthma: Yes Hx COPD: No Hx Tuberculosis: No Hx Dementia: Yes Hx HIV: No Additional medical history: has had transfusions in the past, Gi bleed - Surgical History Hx Coronary Stent: Yes Hx Open Heart Surgery: No Hx Pacemaker: No Hx Internal Defibrillator: No Hx Cholecystectomy: No Hx Appendectomy: No Hx Breast Surgery: No Additional Surgical History: hysterectomy, bilateral knee surgery, - Social History Smoking Status: Never Smoker Substance Use Type: None - Medications Home Medications: Home Medications Medication Instructions Recorded Confirmed Last Taken Type Atenolol [Tenormin] 25 mg PO DAILY 04/12/18 04/12/18 04/11/18 History ISOSORBIDE MONOnitrate [Imdur ER] 60 mg PO QDAY 04/12/18 04/12/18 04/11/18 History Insulin NPH Hum/Reg Insulin Hm 25 unit SQ BID 04/12/18 04/12/18 04/11/18 History [Humulin 70-30 Vial] Lisinopril [Zestril TAB] 5 mg PO QDAY 04/12/18 04/12/18 04/11/18 History ED Physical Exam - General Limitations: Altered Mental Status - Other Other exam information: General: No limitations, patient is alert in no acute distress Head exam: Atraumatic, normocephalic Eyes exam: Normal appearance, pupils equal reactive to light, extraocular movements intact ENT: Moist mucous membrane, normal oropharynx Neck exam: Normal inspection, full range of motion, no meningismus nontender Respiratory exam: Clear to auscultation bilateral, no wheezes, rales, crackles. Left anterior chest wall tenderness Cardiovascular: Normal rate and rhythm, normal heart sounds Abdomen: Soft, nondistended, mild generalized tenderness, with normal bowel sounds, no rebound, or guarding Extremity: Full range of motion normal inspection no deformity, no calf tenderness or edema Back: Normal Inspection, full range of motion, no tenderness Neurologic: Alert, oriented x3, cranial nerves intact, 5/5 upper extremity strength equal bilaterally. 4/5 lower extremity strength equal bilaterally. Psychiatric: normal affect, normal mood Skin: Warm, dry, intact ED Course Vital Signs 04/12/18 00:41 Pulse Rate 77 Respiratory 18 Rate Blood Pressure 236/88 O2 Sat by Pulse 100 Oximetry - Lab Data Result diagrams: 04/12/18 01:06 04/12/18 01:06 Lab Results 04/12/18 04/12/18 04/12/18 Range/Units 00:42 00:47 01:06 WBC 2.8 L (4.5-11.0) K/mm3 RBC 3.53 L (3.65-5.03) M/mm3 Hgb 11.6 (10.1-14.3) gm/dl Hct 36.0 (30.3-42.9) % MCV 102 H (79-97) fl MCH 33 H (28-32) pg MCHC 32 (30-34) % RDW 13.8 (13.2-15.2) % Plt Count 138 L (140-440) K/mm3 Lymph % (Auto) 25.5 (13.4-35.0) % [place] % (Auto) 12.0 H (0.0-7.3) % Eos % (Auto) 0.2 (0.0-4.3) % Baso % (Auto) 0.3 (0.0-1.8) % Lymph # 0.7 L (1.2-5.4) K/mm3 [place] # 0.3 (0.0-0.8) K/mm3 Eos # 0.0 (0.0-0.4) K/mm3 Baso # 0.0 (0.0-0.1) K/mm3 Seg Neutrophils % 62.0 (40.0-70.0) % Seg Neutrophils # 1.7 L (1.8-7.7) K/mm3 Sodium (137-145) mmol/L Potassium (3.6-5.0) mmol/L Chloride (98-107) mmol/L Carbon Dioxide (22-30) mmol/L Anion Gap mmol/L BUN (7-17) mg/dL Creatinine (0.7-1.2) mg/dL Estimated GFR ml/min BUN/Creatinine Ratio % Glucose (65-100) mg/dL POC Glucose 139 H (70-105) Calcium (8.4-10.2) mg/dL Urine Color Yellow (Yellow) Urine Turbidity Clear (Clear) Urine pH 7.0 (5.0-7.0) Ur Specific [place] 1.010 (1.003-1.030) Urine Protein <15 mg/dl (Negative) mg/dL Urine Glucose (UA) 50 (Negative) mg/dL Urine Ketones Neg (Negative) mg/dL Urine Blood Neg (Negative) Urine Nitrite Neg (Negative) Urine Bilirubin Neg (Negative) Urine Urobilinogen 2.0 (<2.0) mg/dL Ur Leukocyte Esterase Neg (Negative) Urine WBC (Auto) < 1.0 (0.0-6.0) /HPF Urine RBC (Auto) 1.0 (0.0-6.0) /HPF U Epithel Cells (Auto) 4.0 (0-13.0) /HPF Urine Bacteria (Auto) 1+ (Negative) /HPF Urine Mucus Few /HPF 04/12/18 04/12/18 04/12/18 Range/Units 01:06 03:17 05:02 WBC (4.5-11.0) K/mm3 RBC (3.65-5.03) M/mm3 Hgb (10.1-14.3) gm/dl Hct (30.3-42.9) % MCV (79-97) fl MCH (28-32) pg MCHC (30-34) % RDW (13.2-15.2) % Plt Count (140-440) K/mm3 Lymph % (Auto) (13.4-35.0) % [place] % (Auto) (0.0-7.3) % Eos % (Auto) (0.0-4.3) % Baso % (Auto) (0.0-1.8) % Lymph # (1.2-5.4) K/mm3 [place] # (0.0-0.8) K/mm3 Eos # (0.0-0.4) K/mm3 Baso # (0.0-0.1) K/mm3 Seg Neutrophils % (40.0-70.0) % Seg Neutrophils # (1.8-7.7) K/mm3 Sodium 145 (137-145) mmol/L Potassium 3.6 (3.6-5.0) mmol/L Chloride 111.4 H (98-107) mmol/L Carbon Dioxide 23 (22-30) mmol/L Anion Gap 14 mmol/L BUN 13 (7-17) mg/dL Creatinine 0.7 (0.7-1.2) mg/dL Estimated GFR > 60 ml/min BUN/Creatinine Ratio 19 % Glucose 112 H (65-100) mg/dL POC Glucose 61 L 60 L (70-105) Calcium 8.1 L (8.4-10.2) mg/dL Urine Color (Yellow) Urine Turbidity (Clear) Urine pH (5.0-7.0) Ur Specific [place] (1.003-1.030) Urine Protein (Negative) mg/dL Urine Glucose (UA) (Negative) mg/dL Urine Ketones (Negative) mg/dL Urine Blood (Negative) Urine Nitrite (Negative) Urine Bilirubin (Negative) Urine Urobilinogen (<2.0) mg/dL Ur Leukocyte Esterase (Negative) Urine WBC (Auto) (0.0-6.0) /HPF Urine RBC (Auto) (0.0-6.0) /HPF U Epithel Cells (Auto) (0-13.0) /HPF Urine Bacteria (Auto) (Negative) /HPF Urine Mucus /HPF - Medical Decision Making Patient received D50 prior to arrival with glucose of 139 upon presentation to the ED. Glucose decreased to the 60s. Patient given peanut butter and jelly sandwich in applesauce. Repeat glucose remains in his 60s. Patient given additional fluid and another amp of D50. Due to recurrent hypoglycemia patient will be admitted to the hospital.. Patient had urinary frequency in the ED and states this is chronic. No dysuria reported. - Differential Diagnosis infection, insulin reaction, fasting, Critical Care Time: No Critical care attestation.: If time is entered above; I have spent that time in minutes in the direct care of this critically ill patient, excluding procedure time. ED Disposition Clinical Impression: Hypoglycemia, Diabetes mellitus with insulin therapy, Urinary frequency, Hypertension Disposition: OP ADMIT IP TO THIS HOSP Is pt being admited?: Yes Condition: Stable Instructions: Hypertension (ED) Time of Disposition: 05:18 (Dr Lopes/hosp)
--- NOTE | 2018-04-12 11:13 | History and Physical Report ---
History of Present Illness Date of examination: 04/12/18 Date of admission: 04/12/18 08:15 Chief complaint: Alterd mental status from hypolgycemia, History of present illness: Patient is an 82-year-old lady for has a history of MS, coronary artery disease status post left heart cath on 09/2017, diverticular bleed requiring blood transfusion and s/p colonoscopy 12/23/17, diabetes mellitus, hypertension, epigastric pain, Alzheimer's dementia and aspirin allergy, presents to the hospital unresponsive. Patient was noticed by family members to be unresponsive. EMS was called. Glucose was 29 at the scene. D50 was administered with improvement in mental status. Pt was transported to [facility] emergency department. On arrival Glucose level was 139. Pt has a history of dementia that has progressively gotten worse over the past one year. Has also been having very poor appetite secondary to combination of her dementia and other medical conditions. Patient stated that she took her insulin despite the fact that she hadn't eating. She denies any chest pain, orthopnea or PND, fever, nausea, vomiting, dysuria. At her baseline she has difficulty ambulating and uses a cane. Her medicare nurse is her grandson who also goes to work. Pt was admitted for further evaluation an management Past History Past Medical History: CAD, diabetes, hypertension, other (Gi bleeding, Dementia) Social history: denies: smoking, alcohol abuse Family history: no significant family history Medications and Allergies Allergies Allergy/AdvReac Type Severity Reaction Status Date / Time aspirin Allergy Hives Verified 04/30/17 11:07 Home Medications Medication Instructions Recorded Confirmed Last Taken Type Atenolol [Tenormin] 25 mg PO DAILY 04/12/18 04/12/18 04/11/18 History ISOSORBIDE MONOnitrate [Imdur ER] 60 mg PO QDAY 04/12/18 04/12/18 04/11/18 History Insulin NPH Hum/Reg Insulin Hm 25 unit SQ BID 04/12/18 04/12/18 04/11/18 History [Humulin 70-30 Vial] Lisinopril [Zestril TAB] 5 mg PO QDAY 04/12/18 04/12/18 04/11/18 History Review of Systems ROS unobtainable: due to mental status Exam - Constitutional Vitals: Temp Pulse Resp BP Pulse Ox 98.5 F 73 20 191/76 98 04/12/18 09:42 04/12/18 09:42 04/12/18 10:00 04/12/18 09:42 04/12/18 10:00 Results - Labs CBC & Chem 7: 04/12/18 01:06 04/12/18 01:06 Labs: Abnormal lab results 04/12/18 04/12/18 04/12/18 Range/Units 00:42 01:06 01:06 WBC 2.8 L (4.5-11.0) K/mm3 RBC 3.53 L (3.65-5.03) M/mm3 MCV 102 H (79-97) fl MCH 33 H (28-32) pg Plt Count 138 L (140-440) K/mm3 Story % (Auto) 12.0 H (0.0-7.3) % Lymph # 0.7 L (1.2-5.4) K/mm3 Seg Neutrophils # 1.7 L (1.8-7.7) K/mm3 Chloride 111.4 H (98-107) mmol/L Glucose 112 H (65-100) mg/dL POC Glucose 139 H (70-105) Calcium 8.1 L (8.4-10.2) mg/dL 04/12/18 04/12/18 04/12/18 Range/Units 03:17 05:02 07:10 WBC (4.5-11.0) K/mm3 RBC (3.65-5.03) M/mm3 MCV (79-97) fl MCH (28-32) pg Plt Count (140-440) K/mm3 [place] % (Auto) (0.0-7.3) % Lymph # (1.2-5.4) K/mm3 Seg Neutrophils # (1.8-7.7) K/mm3 Chloride (98-107) mmol/L Glucose (65-100) mg/dL POC Glucose 61 L 60 L 148 H (70-105) Calcium (8.4-10.2) mg/dL Assessment and Plan - Metabolic encephalopathy secondary to hypolgycemia D50 given. blood sugar improve. Avoid sulfany ureas and insulin. Improve po intake which is the most likely cause -T2DM SSI A1c, lipid panel , Urine microalbumin liberal diet as pt has a poor appetite with inadeqate po intake - Hypoglycemia Corrected with D50 - Alzheimer dementia Continue with appropriate home meds - CAD Continue with plavix . Pt Allergic to ASA - DVT PPX with lovenox and GI with pepcid check Am labs Time spent 35 mins - Patient Problems (1) Metabolic encephalopathy Current Visit: Yes Status: Acute (2) Diabetes mellitus with insulin therapy Current Visit: Yes Status: Acute (3) Hypoglycemia Current Visit: Yes Status: Acute
[2018-04-12] MEDS ORDERED: D50W (25GM) Syringe IV PRN (11:34)
[2018-04-12] MEDS: ZESTRIL PO SCH (13:08)
[2018-04-12] MEDS: LOVENOX SUB-Q SCH (13:08)
[2018-04-12] MEDS: IMDUR PO SCH (13:09)
[2018-04-12] MEDS: TENORMIN PO SCH (13:14)
--- NOTE | 2018-04-12 14:11 | Cat Scan Report ---
CT HEAD WITHOUT CONTRAST: HISTORY: Response, metabolic encephalopathy. TECHNIQUE: Sequential CT images without contrast. FINDINGS: Compared to CT dated 01/11/17 and MR brain dated 01/19/17. Chronic-appearing focal infarcts have developed in the right posterior temporal lobe and right parietal lobe. These findings were not present on the examination from 2017. A 1 cm chronic lacunar infarct in the left basal ganglia is unchanged. Mild nonspecific chronic white matter changes are also stable. There is no evidence for hemorrhage, mass, extra-axial fluid collection or large area of acute ischemia. Ventricular size is within normal limits. The visualized sinuses and mastoid air cells are adequately aerated. IMPRESSION: Chronic infarcts as described above. No acute intracranial process is identified.
[2018-04-12 15:37] LABS: Chol/HDL Ratio 2.69 %
[2018-04-12] MEDS: HumaLOG SUB-Q SCH ×2 (17:10→22:33)
[2018-04-13] MEDS ORDERED: APRESOLINE IV ONE (02:55)
[2018-04-13 07:01] LABS: Basophils % (Auto) 0.3 % (0.0-1.8); Eosinophils % (Auto) 0.4 % (0.0-4.3); Hematocrit 36.9 % (30.3-42.9); Hemoglobin 12.2 gm/dl (10.1-14.3); Lymphocytes # (Auto) 1.3 K/mm3 (1.2-5.4); Lymphocytes % (Auto) 40.5 % (13.4-35.0); Mean Corpuscular HGB Conc 33 % (30-34); Mean Corpuscular Volume 100 fl (79-97); Monocytes # (Auto) 0.4 K/mm3 (0.0-0.8); Monocytes % (Auto) 13.5 % (0.0-7.3); Platelet Count 157 K/mm3 (140-440); Red Blood Count 3.67 M/mm3 (3.65-5.03); Red Cell Distribution Width 13.6 % (13.2-15.2)
[2018-04-13 07:10] LABS: INR 0.93 (0.87-1.13)
[2018-04-13 07:52] LABS: Alanine Aminotransferase 10 units/L (7-56); Albumin 3.4 g/dL (3.9-5); BUN/Creatinine Ratio 18; Blood Urea Nitrogen 11 mg/dL (7-17); Calcium 8.7 mg/dL (8.4-10.2); Hemolysis Index 33
[2018-04-13] MEDS: HumaLOG SUB-Q SCH ×4 (08:05→21:59)
[2018-04-13] MEDS: IMDUR PO SCH (09:22)
[2018-04-13] MEDS: LOVENOX SUB-Q SCH (09:22)
[2018-04-13] MEDS: TENORMIN PO SCH (09:22)
[2018-04-13] MEDS: ZESTRIL PO SCH (09:22)
--- NOTE | 2018-04-13 10:16 | Progress Note ---
Assessment and Plan Patient is an 82-year-old lady for has a history of [place], coronary artery disease status post left heart cath on 09/2017, diverticular bleed requiring blood transfusion and s/p colonoscopy 12/23/17, diabetes mellitus, hypertension, epigastric pain, Alzheimer's dementia and aspirin allergy, presents to the hospital unresponsive. Patient was noticed by family members to be unresponsive. EMS was called. Glucose was 29 at the scene. D50 was administered with improvement in mental status. Pt was transported to [facility] emergency department. On arrival Glucose level was 139. Pt has a history of dementia that has progressively gotten worse over the past one year. Has also been having very poor appetite secondary to combination of her dementia and other medical conditions. Patient stated that she took her insulin despite the fact that she hadn't eating. She denies any chest pain, orthopnea or PND, fever, nausea, vomiting, dysuria. At her baseline she has difficulty ambulating and uses a cane. Her pediatric acute care unit nurse is her grandson who also goes to work. Pt was admitted for further evaluation an management. - Metabolic encephalopathy secondary to hypolgycemia D50 given. blood sugar improve. Avoid sulfanyl ureas and insulin. Improve po intake which is the most likely cause -T2DM SSI A1c, lipid panel , Urine microalbumin liberal diet as pt has a poor appetite with inadeqate po intake - Hypernatrmia commence D5W. and optimize the glycemic control - Hypoglycemia - improved Corrected with D50 - Hypertension Optimize control - Alzheimer dementia Continue with appropriate home meds - CAD Continue with plavix. Pt Allergic to ASA - DVT PPX with Lovenox and GI with pepcid Time spent 25 mins - Patient Problems (1) Metabolic encephalopathy Current Visit: Yes Status: Acute (2) Diabetes mellitus with insulin therapy Current Visit: Yes Status: Acute (3) Hypoglycemia Current Visit: Yes Status: Acute Subjective Date of service: 04/13/18 Principal diagnosis: Metabolic encephalopathy, hypoglycemia, hypernatrmia Interval history: more alert. No overnight event reported to me Objective - Constitutional Vitals: Vital Signs - 12hr 04/13/18 04/13/18 04/13/18 02:33 02:49 03:27 Temperature Pulse Rate 79 Respiratory Rate Blood Pressure 202/90 209/89 157/69 O2 Sat by Pulse 99 Oximetry 04/13/18 04/13/18 07:39 09:22 Temperature 98.0 F Pulse Rate 74 74 Respiratory 18 Rate Blood Pressure 147/66 147/66 O2 Sat by Pulse 98 Oximetry General appearance: Present: no acute distress, well-nourished - EENT Eyes: PERRL, EOM intact ENT: hearing intact, clear oral mucosa Ears: bilateral: normal - Neck Neck: supple, normal ROM - Respiratory Respiratory effort: normal Respiratory: bilateral: CTA - Breasts Breasts: normal - Cardiovascular Rhythm: regular Heart Sounds: Present: S1 & S2. Absent: gallop, rub Extremities: pulses intact, No edema, normal color, Full ROM - Gastrointestinal General gastrointestinal: Present: soft, non-tender, non-distended, normal bowel sounds - Genitourinary Female genitourinary: normal - Integumentary Integumentary: clear, warm, dry - Musculoskeletal Musculoskeletal: 1, strength equal bilaterally - Neurologic Neurologic: moves all extremities - Psychiatric Psychiatric: memory intact, appropriate mood/affect, intact judgment & insight - Labs CBC & Chem 7: 04/13/18 05:49 04/13/18 05:49 Labs: Abnormal lab results 04/12/18 04/12/18 04/12/18 Range/Units 11:16 14:32 16:49 WBC (4.5-11.0) K/mm3 MCV (79-97) fl MCH (28-32) pg Lymph % (Auto) (13.4-35.0) % [place] % (Auto) (0.0-7.3) % Seg Neutrophils # (1.8-7.7) K/mm3 Sodium (137-145) mmol/L Chloride (98-107) mmol/L Creatinine (0.7-1.2) mg/dL Glucose (65-100) mg/dL POC Glucose 150 H 106 H (70-105) Phosphorus (2.5-4.5) mg/dL Total Protein (6.3-8.2) g/dL Albumin (3.9-5) g/dL HDL Cholesterol 62 H (40-59) mg/dL 04/12/18 04/13/18 04/13/18 Range/Units 22:24 05:49 05:49 WBC 3.2 L (4.5-11.0) K/mm3 MCV 100 H (79-97) fl MCH 33 H (28-32) pg Lymph % (Auto) 40.5 H (13.4-35.0) % [place] % (Auto) 13.5 H (0.0-7.3) % Seg Neutrophils # 1.4 L (1.8-7.7) K/mm3 Sodium 146 H (137-145) mmol/L Chloride 110.1 H (98-107) mmol/L Creatinine 0.6 L (0.7-1.2) mg/dL Glucose 128 H (65-100) mg/dL POC Glucose 139 H (70-105) Phosphorus 2.40 L (2.5-4.5) mg/dL Total Protein 5.8 L (6.3-8.2) g/dL Albumin 3.4 L (3.9-5) g/dL HDL Cholesterol (40-59) mg/dL 04/13/18 Range/Units 07:44 WBC (4.5-11.0) K/mm3 MCV (79-97) fl MCH (28-32) pg Lymph % (Auto) (13.4-35.0) % [place] % (Auto) (0.0-7.3) % Seg Neutrophils # (1.8-7.7) K/mm3 Sodium (137-145) mmol/L Chloride (98-107) mmol/L Creatinine (0.7-1.2) mg/dL Glucose (65-100) mg/dL POC Glucose 133 H (70-105) Phosphorus (2.5-4.5) mg/dL Total Protein (6.3-8.2) g/dL Albumin (3.9-5) g/dL HDL Cholesterol (40-59) mg/dL
[2018-04-13 14:58] LABS: Creatinine,Urine 30.2 mg/dL (0.1-20.0)
[2018-04-14] MEDS: APRESOLINE IV PRN (03:31)
[2018-04-14 05:09] LABS: Basophils % (Auto) 0.4 % (0.0-1.8); Eosinophils % (Auto) 0.6 % (0.0-4.3); Hematocrit 36.8 % (30.3-42.9); Hemoglobin 12.2 gm/dl (10.1-14.3); Lymphocytes # (Auto) 1.6 K/mm3 (1.2-5.4); Mean Corpuscular HGB Conc 33 % (30-34); Mean Corpuscular Volume 100 fl (79-97); Monocytes # (Auto) 0.5 K/mm3 (0.0-0.8); Monocytes % (Auto) 14.2 % (0.0-7.3); Platelet Count 157 K/mm3 (140-440); Red Blood Count 3.66 M/mm3 (3.65-5.03); Red Cell Distribution Width 13.5 % (13.2-15.2)
[2018-04-14 05:31] LABS: Alanine Aminotransferase 10 units/L (7-56); Albumin 3.4 g/dL (3.9-5); BUN/Creatinine Ratio 20; Blood Urea Nitrogen 12 mg/dL (7-17); Calcium 8.8 mg/dL (8.4-10.2); Hemolysis Index 25
[2018-04-14] MEDS: HumaLOG SUB-Q SCH ×4 (08:55→23:46)
[2018-04-14] MEDS: ZESTRIL PO SCH (09:40)
[2018-04-14] MEDS: TENORMIN PO SCH (09:40)
[2018-04-14] MEDS: LOVENOX SUB-Q SCH (09:40)
[2018-04-14] MEDS: IMDUR PO SCH (09:40)
--- NOTE | 2018-04-14 13:22 | Progress Note ---
Assessment and Plan Patient is an 82-year-old lady for has a history of [place], coronary artery disease status post left heart cath on 09/2017, diverticular bleed requiring blood transfusion and s/p colonoscopy 12/23/17, diabetes mellitus, hypertension, epigastric pain, Alzheimer's dementia and aspirin allergy, presents to the hospital unresponsive. Patient was noticed by family members to be unresponsive. EMS was called. Glucose was 29 at the scene. D50 was administered with improvement in mental status. Pt was transported to [facility] emergency department. On arrival Glucose level was 139. Pt has a history of dementia that has progressively gotten worse over the past one year. Has also been having very poor appetite secondary to combination of her dementia and other medical conditions. Patient stated that she took her insulin despite the fact that she hadn't eating. She denies any chest pain, orthopnea or PND, fever, nausea, vomiting, dysuria. At her baseline she has difficulty ambulating and uses a cane. Her healthcare project manager is her grandson who also goes to work. Pt was admitted for further evaluation an management. - Metabolic encephalopathy secondary to hypolgycemia - improving D50 given. blood sugar improve. Avoid sulfanyl ureas and insulin. Improve po intake which is the most likely cause -T2DM SSI A1c 5.6%, lipid panel - normal, Urine microalbumin - unrmarkable liberal diet as pt has a poor appetite with inadeqate po intake Hold all antibiabetic meds - Hypernatrmia - corrected commence D5W. and optimize the glycemic control - Hypoglycemia - improved Corrected with D50 - Hypertension Further Optimize control - Alzheimer dementia Continue with appropriate home meds - CAD Continue with plavix. Pt Allergic to ASA - DVT PPX with Lovenox and GI with pepcid Time spent: 28 mins - Patient Problems (1) Metabolic encephalopathy Current Visit: Yes Status: Acute (2) Diabetes mellitus with insulin therapy Current Visit: Yes Status: Acute (3) Hypoglycemia Current Visit: Yes Status: Acute Subjective Date of service: 04/14/18 Principal diagnosis: Metabolic encephalopathy, hypoglycemia, hypernatrmia Interval history: more alert but still confused No overnight event reported to me Objective - Constitutional Vitals: Vital Signs - 12hr 04/14/18 04/14/18 04/14/18 02:08 03:31 04:22 Temperature 98.3 F 98.5 F Pulse Rate 63 63 67 Respiratory 18 18 Rate Blood Pressure 184/81 184/81 162/67 O2 Sat by Pulse 95 98 Oximetry 04/14/18 04/14/18 07:26 09:40 Temperature 98.2 F Pulse Rate 70 70 Respiratory 18 Rate Blood Pressure 174/64 174/64 O2 Sat by Pulse 98 Oximetry General appearance: Present: no acute distress, well-nourished - EENT Eyes: PERRL, EOM intact Ears: bilateral: normal - Neck Neck: supple, normal ROM - Respiratory Respiratory effort: normal Respiratory: bilateral: CTA - Breasts Breasts: normal - Cardiovascular Rhythm: regular Heart Sounds: Present: S1 & S2. Absent: gallop, rub Extremities: pulses intact, No edema, normal color, Full ROM - Gastrointestinal General gastrointestinal: Present: soft, non-tender, non-distended, normal bowel sounds - Integumentary Integumentary: clear, warm, dry - Musculoskeletal Musculoskeletal: strength equal bilaterally, generalized weakness - Neurologic Neurologic: moves all extremities - Psychiatric Psychiatric: memory intact, appropriate mood/affect, intact judgment & insight - Labs CBC & Chem 7: 04/14/18 04:37 04/15/18 05:34 Labs: Abnormal lab results 04/13/18 04/13/18 04/13/18 Range/Units 04:54 16:26 21:49 WBC (4.5-11.0) K/mm3 MCV (79-97) fl MCH (28-32) pg Lymph % (Auto) (13.4-35.0) % [place] % (Auto) (0.0-7.3) % Seg Neutrophils % (40.0-70.0) % Seg Neutrophils # (1.8-7.7) K/mm3 Chloride (98-107) mmol/L Creatinine (0.7-1.2) mg/dL Glucose (65-100) mg/dL POC Glucose 144 H 178 H (70-105) Total Protein (6.3-8.2) g/dL Albumin (3.9-5) g/dL Urine Creatinine 30.2 H (0.1-20.0) mg/dL 04/14/18 04/14/18 04/14/18 Range/Units 04:37 04:37 07:31 WBC 3.3 L (4.5-11.0) K/mm3 MCV 100 H (79-97) fl MCH 33 H (28-32) pg Lymph % (Auto) 49.0 H (13.4-35.0) % [place] % (Auto) 14.2 H (0.0-7.3) % Seg Neutrophils % 35.8 L (40.0-70.0) % Seg Neutrophils # 1.2 L (1.8-7.7) K/mm3 Chloride 109.1 H (98-107) mmol/L Creatinine 0.6 L (0.7-1.2) mg/dL Glucose 128 H (65-100) mg/dL POC Glucose 125 H (70-105) Total Protein 5.7 L (6.3-8.2) g/dL Albumin 3.4 L (3.9-5) g/dL Urine Creatinine (0.1-20.0) mg/dL 04/14/18 Range/Units 11:22 WBC (4.5-11.0) K/mm3 MCV (79-97) fl MCH (28-32) pg Lymph % (Auto) (13.4-35.0) % [place] % (Auto) (0.0-7.3) % Seg Neutrophils % (40.0-70.0) % Seg Neutrophils # (1.8-7.7) K/mm3 Chloride (98-107) mmol/L Creatinine (0.7-1.2) mg/dL Glucose (65-100) mg/dL POC Glucose 189 H (70-105) Total Protein (6.3-8.2) g/dL Albumin (3.9-5) g/dL Urine Creatinine (0.1-20.0) mg/dL
[2018-04-14] MEDS ORDERED: TYLENOL PO PRN (20:39)
[2018-04-15] MEDS: APRESOLINE IV PRN ×2 (02:38→19:28)
[2018-04-15 06:51] LABS: Albumin 3.7 g/dL (3.9-5); BUN/Creatinine Ratio 18; Blood Urea Nitrogen 11 mg/dL (7-17); Calcium 9.1 mg/dL (8.4-10.2); Hemolysis Index 174
[2018-04-15 06:54] LABS: Alanine Aminotransferase 14 units/L (7-56)
[2018-04-15] MEDS: HumaLOG SUB-Q SCH ×4 (07:35→22:48)
[2018-04-15] MEDS: IMDUR PO SCH (09:03)
[2018-04-15] MEDS: LOVENOX SUB-Q SCH (09:03)
[2018-04-15] MEDS: ZESTRIL PO SCH (09:04)
[2018-04-15] MEDS: TENORMIN PO SCH (09:04)
--- NOTE | 2018-04-15 20:25 | Progress Note ---
Assessment and Plan Patient is an 82-year-old lady for has a history of [place], coronary artery disease status post left heart cath on 09/2017, diverticular bleed requiring blood transfusion and s/p colonoscopy 12/23/17, diabetes mellitus, hypertension, epigastric pain, Alzheimer's dementia and aspirin allergy, presents to the hospital unresponsive. Patient was noticed by family members to be unresponsive. EMS was called. Glucose was 29 at the scene. D50 was administered with improvement in mental status. Pt was transported to [facility] emergency department. On arrival Glucose level was 139. Pt has a history of dementia that has progressively gotten worse over the past one year. Has also been having very poor appetite secondary to combination of her dementia and other medical conditions. Patient stated that she took her insulin despite the fact that she hadn't eating. She denies any chest pain, orthopnea or PND, fever, nausea, vomiting, dysuria. At her baseline she has difficulty ambulating and uses a cane. Her patient centered care specialist is her grandson who also goes to work. Pt was admitted for further evaluation an management. - Metabolic encephalopathy secondary to hypolgycemia - improving D50 given. blood sugar improve. Avoid sulfanyl ureas and insulin. Improve po intake which is the most likely cause -T2DM SSI A1c 5.6%, lipid panel - normal, Urine microalbumin - unrmarkable liberal diet as pt has a poor appetite with inadeqate po intake Hold all antibiabetic meds - Hypernatrmia - corrected commence D5W. and optimize the glycemic control - Hypoglycemia - improved Corrected with D50 - Hypertension Further Optimize control - Alzheimer dementia Continue with appropriate home meds - CAD Continue with plavix. Pt Allergic to ASA - DVT PPX with Lovenox and GI with pepcid Time spent: 25 mins disposition: Preferably to be D/c to SNF b/c increase care demand. - Patient Problems (1) Metabolic encephalopathy Current Visit: Yes Status: Acute (2) Diabetes mellitus with insulin therapy Current Visit: Yes Status: Acute (3) Hypoglycemia Current Visit: Yes Status: Acute Subjective Date of service: 04/15/18 Principal diagnosis: Metabolic encephalopathy, hypoglycemia, hypernatrmia Interval history: More alert but still confused. No overnight event reported to me Objective - Constitutional Vitals: Vital Signs - 12hr 02/01/19 02/01/19 02/01/19 09:03 09:04 10:00 Temperature Pulse Rate 77 77 Pulse Rate [ 77 Right Brachial] Respiratory 18 Rate Blood Pressure 148/65 148/65 O2 Sat by Pulse 96 Oximetry 04/15/18 04/15/18 13:25 19:28 Temperature 98.1 F Pulse Rate 71 67 Pulse Rate [ Right Brachial] Respiratory 18 Rate Blood Pressure 155/61 184/77 O2 Sat by Pulse 98 Oximetry General appearance: Present: no acute distress, well-nourished - EENT Eyes: PERRL, EOM intact ENT: hearing intact, clear oral mucosa Ears: bilateral: normal - Neck Neck: supple, normal ROM - Respiratory Respiratory effort: normal Respiratory: bilateral: CTA - Cardiovascular Rhythm: regular Heart Sounds: Present: S1 & S2. Absent: gallop, rub Extremities: pulses intact, No edema, normal color, Full ROM - Gastrointestinal General gastrointestinal: Present: soft, non-tender, non-distended, normal bowel sounds - Integumentary Integumentary: clear, warm, dry - Musculoskeletal Musculoskeletal: 1, strength equal bilaterally - Neurologic Neurologic: moves all extremities - Psychiatric Psychiatric: memory intact, appropriate mood/affect, intact judgment & insight - Labs CBC & Chem 7: 04/14/18 04:37 04/15/18 05:34 Labs: Abnormal lab results 04/14/18 04/15/18 04/15/18 Range/Units 22:32 05:34 07:17 Potassium 5.4 H (3.6-5.0) mmol/L Chloride 110.3 H (98-107) mmol/L Creatinine 0.6 L (0.7-1.2) mg/dL Glucose 129 H (65-100) mg/dL POC Glucose 146 H 132 H (70-105) Albumin 3.7 L (3.9-5) g/dL 04/15/18 04/15/18 Range/Units 11:19 16:23 Potassium (3.6-5.0) mmol/L Chloride (98-107) mmol/L Creatinine (0.7-1.2) mg/dL Glucose (65-100) mg/dL POC Glucose 170 H 173 H (70-105) Albumin (3.9-5) g/dL
[2018-04-16] MEDS: APRESOLINE IV PRN (02:36)
[2018-04-16] MEDS: HumaLOG SUB-Q SCH ×4 (08:15→23:10)
[2018-04-16] MEDS: LOVENOX SUB-Q SCH (09:54)
[2018-04-16] MEDS: IMDUR PO SCH (09:54)
[2018-04-16] MEDS: ZESTRIL PO SCH (09:55)
[2018-04-16] MEDS: TENORMIN PO SCH (09:55)
[2018-04-16] MEDS ORDERED: TENORMIN PO ONE (12:00)
[2018-04-16] MEDS ORDERED: ZESTRIL PO SCH (12:00)
--- NOTE | 2018-04-16 12:07 | Progress Note ---
Assessment and Plan Patient is an 82-year-old lady for has a history of [place], coronary artery disease status post left heart cath on 09/2017, diverticular bleed requiring blood transfusion and s/p colonoscopy 12/23/17, diabetes mellitus, hypertension, epigastric pain, Alzheimer's dementia and aspirin allergy, presents to the hospital unresponsive. Patient was noticed by family members to be unresponsive. EMS was called. Glucose was 29 at the scene. D50 was administered with improvement in mental status. Pt was transported to [facility] emergency department. On arrival Glucose level was 139. Pt has a history of dementia that has progressively gotten worse over the past one year. Has also been having very poor appetite secondary to combination of her dementia and other medical conditions. Patient stated that she took her insulin despite the fact that she hadn't eating. She denies any chest pain, orthopnea or PND, fever, nausea, vomiting, dysuria. At her baseline she has difficulty ambulating and uses a cane. Her professional healthcare representative is her grandson who also goes to work. Pt was admitted for further evaluation an management. - Metabolic encephalopathy secondary to hypolgycemia - improving D50 given. blood sugar improve. Avoid sulfanyl ureas and insulin. Improve po intake which is the most likely cause - T2DM SSI A1c 5.6%, lipid panel - normal, Urine microalbumin - unrmarkable liberal diet as pt has a poor appetite with inadeqate po intake Hold all antibiabetic meds - Hypernatrmia - corrected commence D5W. and optimize the glycemic control - Hypoglycemia - improved Corrected with D50 - Hypertension Further Optimize control - Alzheimer dementia Continue with appropriate home meds - CAD Continue with plavix. Pt Allergic to ASA - DVT PPX with Lovenox and GI with pepcid Time spent: 25 mins disposition: Preferably to be D/c to SNF b/c increase care demand. - Patient Problems (1) Metabolic encephalopathy Current Visit: Yes Status: Acute (2) Diabetes mellitus with insulin therapy Current Visit: Yes Status: Acute (3) Hypoglycemia Current Visit: Yes Status: Acute Subjective Date of service: 04/16/18 Principal diagnosis: Metabolic encephalopathy, hypoglycemia, hypernatrmia Interval history: More alert but still confused. No overnight event reported to me Objective - Exam Narrative Exam: Constitutional: Well-nourished well-developed. In no distress Head: Normocephalic atraumatic Eyes: Pupils are equal round and reactive to light Nose: No enlarged turbinates, no septal deviation. Mouth: Moist mucous membranes. Neck: Supple no thyromegaly. No bruit. No JVD Heart: Regular rate and rhythm, S1-S2 normal. No rubs murmurs or gallop Lungs: Clear to auscultation bilaterally. no rales or rhonchi Abdomen: Soft, nontender. Bowel sound are present. Extremities: No edema, no cyanosis, no clubbing. Neuro: Patient is confused. Oriented x1. No focal sensory or motor deficit. Skin: No rashes or hyperpigmented spots Musculoskeletal system: No joint pain or swelling Hematological: No petechia or subcutanous hemorrhages. Immunological: No multiple septic spots on the skin Lymphatic: No generalized lymphadenopathy Psychiatry: Euthymic. Calm. - Constitutional Vitals: Vital Signs - 12hr 04/16/18 04/16/18 04/16/18 02:03 02:36 07:50 Temperature 98.8 F Pulse Rate 67 76 Respiratory 20 Rate Blood Pressure 180/76 180/76 161/65 O2 Sat by Pulse 96 Oximetry 04/16/18 04/16/18 09:54 09:55 Temperature Pulse Rate 76 76 Respiratory Rate Blood Pressure 161/65 161/65 O2 Sat by Pulse Oximetry - Labs CBC & Chem 7: 04/14/18 04:37 04/15/18 05:34 Labs: Abnormal lab results 04/15/18 04/15/18 04/16/18 Range/Units 16:23 22:40 07:17 POC Glucose 173 H 149 H 140 H (70-105) 04/16/18 Range/Units 11:41 POC Glucose 271 H (70-105)
[2018-04-17] MEDS: HumaLOG SUB-Q SCH ×4 (08:20→23:12)
[2018-04-17] MEDS: IMDUR PO SCH (09:41)
[2018-04-17] MEDS: LOVENOX SUB-Q SCH (09:42)
[2018-04-17] MEDS: TENORMIN PO SCH (09:49)
[2018-04-17] MEDS ORDERED: TENORMIN PO SCH ×2 (10:00→22:00)
--- NOTE | 2018-04-17 11:26 | Progress Note ---
Assessment and Plan Patient is an 82-year-old lady for has a history of [place], coronary artery disease status post left heart cath on 09/2017, diverticular bleed requiring blood transfusion and s/p colonoscopy 12/23/17, diabetes mellitus, hypertension, epigastric pain, Alzheimer's dementia and aspirin allergy, presents to the hospital unresponsive. Patient was noticed by family members to be unresponsive. EMS was called. Glucose was 29 at the scene. D50 was administered with improvement in mental status. Pt was transported to [facility] emergency department. On arrival Glucose level was 139. Pt has a history of dementia that has progressively gotten worse over the past one year. Has also been having very poor appetite secondary to combination of her dementia and other medical conditions. Patient stated that she took her insulin despite the fact that she hadn't eating. She denies any chest pain, orthopnea or PND, fever, nausea, vomiting, dysuria. At her baseline she has difficulty ambulating and uses a cane. Her child care teacher is her grandson who also goes to work. Pt was admitted for further evaluation an management. - Metabolic encephalopathy secondary to hypolgycemia - improving D50 given. blood sugar improve. Avoid sulfanyl ureas and insulin. Improve po intake which is the most likely cause - T2DM SSI A1c 5.6%, lipid panel - normal, Urine microalbumin - unrmarkable liberal diet as pt has a poor appetite with inadeqate po intake Hold all antibiabetic meds - Hypoglycemia - improved Corrected with D50 - Hypertension Further Optimize control - Alzheimer dementia Continue with appropriate home meds - CAD Continue with plavix. Pt Allergic to ASA - DVT PPX with Lovenox and GI with pepcid Time spent: 25 mins disposition: Preferably to be D/c to SNF b/c increase care demand. - Patient Problems (1) Metabolic encephalopathy Current Visit: Yes Status: Acute (2) Diabetes mellitus with insulin therapy Current Visit: Yes Status: Acute (3) Hypoglycemia Current Visit: Yes Status: Acute Subjective Date of service: 04/17/18 Principal diagnosis: Metabolic encephalopathy, hypoglycemia, hypernatrmia Interval history: More alert but still confused. No overnight event reported to me Objective - Exam Narrative Exam: Constitutional: Well-nourished well-developed. In no distress Head: Normocephalic atraumatic Eyes: Pupils are equal round and reactive to light Nose: No enlarged turbinates, no septal deviation. Mouth: Moist mucous membranes. Neck: Supple no thyromegaly. No bruit. No JVD Heart: Regular rate and rhythm, S1-S2 normal. No rubs murmurs or gallop Lungs: Clear to auscultation bilaterally. no rales or rhonchi Abdomen: Soft, nontender. Bowel sound are present. Extremities: No edema, no cyanosis, no clubbing. Neuro: Patient is confused. Oriented x1. No focal sensory or motor deficit. Skin: No rashes or hyperpigmented spots Musculoskeletal system: No joint pain or swelling Hematological: No petechia or subcutanous hemorrhages. Immunological: No multiple septic spots on the skin Lymphatic: No generalized lymphadenopathy Psychiatry: Euthymic. Calm. - Constitutional Vitals: Vital Signs - 12hr 04/17/18 04/17/18 09:41 09:49 Pulse Rate 75 75 Blood Pressure 171/78 171/78 - Labs CBC & Chem 7: 04/14/18 04:37 04/15/18 05:34 Labs: Abnormal lab results 04/16/18 04/16/18 Range/Units 11:41 16:40 POC Glucose 271 H 176 H (70-105)
[2018-04-17] MEDS ORDERED: ZESTRIL PO SCH (22:00)
[2018-04-18] MEDS: HumaLOG SUB-Q SCH (08:27)
[2018-04-18 08:36] VITALS: BP 178/68
[2018-04-18] MEDS: LOVENOX SUB-Q SCH (09:25)
[2018-04-18] MEDS: IMDUR PO SCH (09:25)
[2018-04-18] MEDS: TENORMIN PO SCH (09:26)
--- NOTE | 2018-04-18 10:45 | Discharge Summary ---
Providers - Providers Date of Admission: 04/12/18 08:15 Date of discharge: 04/18/18 Attending physician: FREDI BARROS 04/12/18 11:36 Consult to Dietitian/Nutrition [CONS] Routine Physician Instructions: Reason For Exam: Reason for Consult: poor apetitie Primary care physician: CARLOS PEREZ Hospitalization Reason for admission: Acute metabolic encephalopathy Condition: Stable Pertinent studies: CT scan of the brain was unremarkable for any acute event Procedures: None Hospital course: Patient is an 82-year-old lady for has a history of CA, coronary artery disease status post left heart cath on 09/2017, diverticular bleed requiring blood transfusion and s/p colonoscopy 12/23/17, diabetes mellitus, hypertension, epigastric pain, Alzheimer's dementia and aspirin allergy, presents to the hospital unresponsive. Patient was noticed by family members to be unresponsive. EMS was called. Glucose was 29 at the scene. D50 was administered with improvement in mental status. Pt was transported to [facility] emergency department. On arrival Glucose level was 139. Pt has a history of dementia that has progressively gotten worse over the past one year. Has also been having very poor appetite secondary to combination of her dementia and other medical conditions. Patient stated that she took her insulin despite the fact that she hadn't eating. She denies any chest pain, orthopnea or PND, fever, nausea, vomiting, dysuria. At her baseline she has difficulty ambulating and uses a cane. Her pet care worker is her grandson who also goes to work. Pt was admitted for further evaluation an management. On admission patient was continued on D51/2 NS. Blood sugar increase to normal levels. A1c was 5.6%. All oral hypoglycemic agents were discontinued. Hypertension was noticed. This was improved with oral antihypertensive agents. Patient mental status progressively improved to normal levels. She is being discharged today to follow up with primary care physician in 3-5 days. Discussed with the patient's grandson was a caregiver emphasizing the need for close monitoring as pt has an appreciable level of dementia. Condition on February was satisfactory. Disposition: [id number] HOME UNDER HOME HLTH - Discharge Diagnoses (1) Metabolic encephalopathy Status: Acute (2) Diabetes mellitus with insulin therapy Status: Acute (3) Hypoglycemia Status: Acute Core Measure Documentation - Palliative Care Palliative Care/ Comfort Measures: Not Applicable - Core Measures Any of the following diagnoses?: none Exam - Physical Exam Narrative exam: Constitutional: Well-nourished well-developed. In no distress Head: Normocephalic atraumatic Eyes: Pupils are equal round and reactive to light Nose: No enlarged turbinates, no septal deviation. Mouth: Moist mucous membranes. Neck: Supple no thyromegaly. No bruit. No JVD Heart: Regular rate and rhythm, S1-S2 normal. No rubs murmurs or gallop Lungs: Clear to auscultation bilaterally. no rales or rhonchi Abdomen: Soft, nontender. Bowel sound are present. Extremities: No edema, no cyanosis, no clubbing. Neuro: Patient is pleaseamntly. Oriented x1. No focal sensory or motor deficit. Skin: No rashes or hyperpigmented spots Musculoskeletal system: No joint pain or swelling Hematological: No petechia or subcutanous hemorrhages. Immunological: No multiple septic spots on the skin Lymphatic: No generalized lymphadenopathy Psychiatry: Euthymic. Calm. - Constitutional Vitals: Temp Pulse Resp BP Pulse Ox 98.3 F 68 18 178/68 98 04/18/18 07:57 04/18/18 09:26 04/18/18 07:57 04/18/18 09:26 04/18/18 07:57 Plan Activity: fall precautions Weight Bearing Status: Non-Weight Bearing Diet: diabetic Follow up with: CARLOS PEREZ MD [Primary Care Provider] - 14 Days FREDI BARROS MD [Staff Physician] - 3 Days Forms: Work/School Release Form
[2018-04-19] MEDS ORDERED: LOVENOX SUB-Q SCH (10:00)
== END 2018-04-18 13:55 | disposition home health service (06) | DRG 637 ==
LOC: ED 00:17 → 2B-ACE 08:15 → UNDODISIN 04-18 13:28
PROVIDERS: ADMIT Family Medicine; ATTEND Family Medicine
DX: E11.649 Type 2 diabetes mellitus with hypoglycemia without coma (principal); G93.41 Metabolic encephalopathy; E87.0 Hyperosmolality and hypernatremia; D69.6 Thrombocytopenia, unspecified; I25.10 Atherosclerotic heart disease of native coronary artery without angina pectoris; I10 Essential (primary) hypertension; G30.9 Alzheimer's disease, unspecified; F02.80 Dementia in other diseases classified elsewhere, unspecified severity, without behavioral disturbance, psychotic disturbance, mood disturbance, and anxiety; K21.9 Gastro-esophageal reflux disease without esophagitis; J45.909 Unspecified asthma, uncomplicated; Z88.6 Allergy status to analgesic agent; Z79.4 Long term (current) use of insulin; I25.2 Old myocardial infarction; Z90.710 Acquired absence of both cervix and uterus
CPT/HCPCS: 36415; 70450; 80048; 80053; 80061; 81001; 82043; 82962; 83036; 83735; 84100; 85025; 85610; 87116; G0378; A9270-GY; J0360; J1650; J1815

== ENCOUNTER 2018-05-12 09:28 | Inpatient (IN) | payer MEDICARE ==
--- NOTE | 2018-05-12 10:20 | Emergency Department Report ---
HPI - General Chief Complaint: Hypoglycemia Time Seen by Provider: 05/12/18 09:59 - HPI HPI: 82-year-old -[place] female presents to the emergency department via EMS from home after her grandson had trouble waking her this morning. Either the grandson or EMS checked her blood sugar and found it to be 32. Oral glucagon was given in route and her blood sugar went up to 94 afterwards. Patient also presents with a blood pressure of 222/93. The patient is awake and has no current complaints. She has a past medical history of dementia, diabetes, GERD, coronary artery disease, hypertension, previous GI bleeds requiring transfusions. The grandson is not currently at bedside. The patient is a poor historian. ED Past Medical Hx - Past Medical History Hx Hypertension: Yes Hx Heart Attack/AMI: Yes Hx Congestive Heart Failure: No Hx Diabetes: Yes Hx Deep Vein Thrombosis: No Hx Pulmonary Embolism: No Hx GERD: Yes Hx Liver Disease: No Hx Renal Disease: No Hx Sickle Cell Disease: No Hx Arthritis: Yes Hx Kidney Stones: No Hx Asthma: Yes Hx COPD: No Hx Tuberculosis: No Hx Dementia: Yes Hx HIV: No Additional medical history: has had transfusions in the past, Gi bleed - Surgical History Hx Coronary Stent: Yes Hx Open Heart Surgery: No Hx Pacemaker: No Hx Internal Defibrillator: No Hx Cholecystectomy: No Hx Appendectomy: No Hx Breast Surgery: No Additional Surgical History: hysterectomy, bilateral knee surgery, - Social History Smoking Status: Never Smoker Substance Use Type: None - Medications Home Medications: Home Medications Medication Instructions Recorded Confirmed Last Taken Type RX: Atenolol [Tenormin] 50 mg PO DAILY #30 tablet 04/18/18 Unknown Rx RX: Atenolol [Tenormin] 50 mg PO QDAY tablet 04/18/18 Unknown Rx RX: AtorvaSTATin [Lipitor] 20 mg PO QHS #30 tablet 04/18/18 Unknown Rx RX: ISOSORBIDE MONOnitrate [Imdur 60 mg PO QDAY #30 tablet 04/18/18 Unknown Rx ER] RX: Lisinopril [Zestril TAB] 40 mg PO QDAY tablet 04/18/18 Unknown Rx RX: Lisinopril [Zestril TAB] 40 mg PO QDAY #30 tablet 04/18/18 Unknown Rx ED Review of Systems ROS: Stated complaint: HIGH BLOOD SUGAR Other details as noted in HPI Comment: Unobtainable due to pts medical conditions Physical Exam - Physical Exam Vital Signs: Vital Signs 05/12/18 09:38 Temperature 98.6 F Pulse Rate 89 Respiratory 18 Rate Blood Pressure 222/93 O2 Sat by Pulse 95 Oximetry Physical Exam: GENERAL: The patient is well-developed well-nourished. HEENT: Normocephalic. Atraumatic. Patient has moist mucous membranes. EYES: Extraocular motions are intact. Pupils are equal and reactive to light bilaterally. NECK: Supple. Trachea is midline. CHEST/LUNGS: Clear to auscultation. There is no respiratory distress noted. HEART/CARDIOVASCULAR: Regular. There is no tachycardia. There is no obvious murmur. ABDOMEN: Abdomen is soft, nontender. Patient has normal bowel sounds. There is no abdominal distention. SKIN: Skin is warm and dry. NEURO: The patient is awake, alert and cooperative but does display some confusion. The patient has no focal neurologic deficits. The patient has normal speech. Cranial nerves II through XII grossly intact. MUSCULOSKELETAL: There is no tenderness or deformity. There is no evidence of a cute injury. ED Course Vital Signs 05/12/18 09:38 Temperature 98.6 F Pulse Rate 89 Respiratory 18 Rate Blood Pressure 222/93 O2 Sat by Pulse 95 Oximetry - EJ/Peripheral Line Arm R Time Out Performed: Yes Indications: nurses unable to establis Skin Cleansed in Sterile Fashion: Yes Size: 22 Dressing Placed: Tegaderm, tape Patient Tolerated Procedure: well ED Medical Decision Making - Lab Data Result diagrams: 05/12/18 10:14 05/12/18 10:14 - EKG Data -: EKG Interpreted by Me EKG shows normal: sinus rhythm, axis, intervals, QRS complexes, ST-T waves Rate: normal - EKG Data When compared to previous EKG there are: previous EKG unavailable Interpretation: normal EKG - Radiology Data Radiology results: report reviewed CT HEAD WITHOUT CONTRAST: HISTORY: Unresponsive episode. TECHNIQUE: Sequential 2.5mm CT images. COMPARISON: 04/12/18. FINDINGS: Cerebral Parenchyma: Moderate nonspecific chronic white matter changes are identified. Chronic infarcts in the right temporal lobe, right parietal lobe, left basal ganglia and right cerebellar hemisphere are again noted. No new areas of diminished attenuation has developed to suggest an acute infarct. Ventricles: Normal. Sella: Normal. Extra-axial spaces: Normal. Basal Cisterns: Normal. Intracranial Hemorrhage: None. Midline Shift: None. Calvarium: Normal. Sinuses: Normal. Mastoid Air Cells: Normal. Visualized Orbits: Normal. IMPRESSION: No acute intracranial process is identified. Chronic white matter changes. Multiple chronic infarcts which are unchanged since 04/12/18. Transcribed By: TTR Dictated By: VILLA LAGUERRE JR, MD Electronically Authenticated By: VILLA LAGUERRE JR, MD Signed Date/Time: 05/12/18 7748 - Medical Decision Making This patient presents to the emergency department after having an unresponsive episode this morning when the grandson tried to wake her from sleep. At the time she was found to have hypoglycemia. The patient received some oral glucagon by EMS and was fed as soon as she arrived to our emergency department. Her blood sugar has stayed steady at about 125. A CT scan of the head was done that does not show any bleed, shift, mass, ischemia, or any other acute process. As the patient's labs have been mostly unremarkable. I spoke with the patient's grandson, or Jose Elias, who says that the patient usually has no difficulty with ambulation and he says that she does not fall. The patient was tested in the emergency department, it took 2 different nurses just to get her to a bedside commode. For this reason, and for further evaluation of this unresponsive episode, patient will be admitted to the hospital for further evaluation and treatment and was accepted for admission by the hospitalist, Dr. Shaw. - Differential Diagnosis hypoglycemia, dysrhythmia, TIA, encephalopathy Critical Care Time: No Critical care attestation.: If time is entered above; I have spent that time in minutes in the direct care of this critically ill patient, excluding procedure time. ED Disposition Clinical Impression: Unresponsive episode, Hypoglycemia Hypertension Qualifiers: Hypertension type: essential hypertension Qualified Code(s): I10 - Essential (primary) hypertension Alzheimer disease Qualifiers: Alzheimer's disease onset: early-onset Dementia behavioral disturbance: without behavioral disturbance Qualified Code(s): G30.0 - Alzheimer's disease with early onset; F02.80 - Dementia in other diseases classified elsewhere without behavioral disturbance Disposition: 09 OP ADMIT IP TO THIS HOSP Is pt being admited?: Yes Condition: Fair Time of Disposition: 19:33 - Assessment Assessment Interval: Baseline - Level of Consciousness 1a. Level of Consciousness: alert/keenly responsive - LOC Questions 1b. LOC Questions: answers both correctly - LOC Command 1c. LOC Commands: performs tasks correctly - Best Gaze 2. Best Gaze: normal - Visual 3. Visual: no visual loss - Facial Palsy 4. Facial Palsy: normal symmetrical movement - Motor Arm 5b. Motor Arm Right: no drift 5a. Motor Arm Left: no drift - Motor Leg 6b. Motor Leg Right: no drift 6a. Motor Leg Left: no drift - Limb Ataxia 7. Limb Ataxia: absent - Sensory 8. Sensory: normal - Best Language 9. Best Language: no aphasia - Dysarthria 10. Dysarthria: normal - Extinction and Inattention 11. Extinction/Inattention: no abnormality - Scoring Total Score: 0 Stroke Severity: No Stroke Symptoms
[2018-05-12 10:45] LABS: Basophils % (Auto) 0.3 % (0.0-1.8); Hematocrit 43.8 % (30.3-42.9); Hemoglobin 14.6 gm/dl (10.1-14.3); Lymphocytes # (Auto) 0.6 K/mm3 (1.2-5.4); Lymphocytes % (Auto) 9.2 % (13.4-35.0); Mean Corpuscular HGB Conc 33 % (30-34); Mean Corpuscular Volume 101 fl (79-97); Monocytes # (Auto) 0.6 K/mm3 (0.0-0.8); Monocytes % (Auto) 9.5 % (0.0-7.3); Platelet Count 152 K/mm3 (140-440); Red Blood Count 4.33 M/mm3 (3.65-5.03); Red Cell Distribution Width 13.2 % (13.2-15.2)
[2018-05-12] MEDS ORDERED: NORMODYNE IV ONE (10:56)
[2018-05-12 11:08] LABS: Alanine Aminotransferase 13 units/L (7-56); BUN/Creatinine Ratio 20; Blood Urea Nitrogen 12 mg/dL (7-17); Calcium 9.5 mg/dL (8.4-10.2); Hemolysis Index 13
[2018-05-12 14:10] LABS: Bilirubin,Urine NEG (Negative); Blood,Urine NEG (Negative); Color,Urine Yellow (Yellow); Mucus,Urine FEW /HPF; Protein,Urine <15 mg/dL mg/dL (Negative); Urobilinogen,Urine < 2.0 mg/dL (<2.0)
--- NOTE | 2018-05-12 14:42 | Cat Scan Report ---
CT HEAD WITHOUT CONTRAST: HISTORY: Unresponsive episode. TECHNIQUE: Sequential 2.5mm CT images. COMPARISON: 04/12/18. FINDINGS: Cerebral Parenchyma: Moderate nonspecific chronic white matter changes are identified. Chronic infarcts in the right temporal lobe, right parietal lobe, left basal ganglia and right cerebellar hemisphere are again noted. No new areas of diminished attenuation has developed to suggest an acute infarct. Ventricles: Normal. Sella: Normal. Extra-axial spaces: Normal. Basal Cisterns: Normal. Intracranial Hemorrhage: None. Midline Shift: None. Calvarium: Normal. Sinuses: Normal. Mastoid Air Cells: Normal. Visualized Orbits: Normal. IMPRESSION: No acute intracranial process is identified. Chronic white matter changes. Multiple chronic infarcts which are unchanged since 04/12/18.
--- NOTE | 2018-05-12 15:30 | History and Physical Report ---
History of Present Illness Chief complaint: She is real weak History of present illness: 82 YO Female with HTN, DM, IL, GERD, OA, Asthma, Dementia, CAD S/P Stent placement presents to ED for evaluation. Pt is confused and unable to provide detailed history. Pt grandson provides history. As per grandson, the patient was in her usual state of health at bedtime around 2000hrs. Upon waking this morning, the patient was found to be confused, and unable to speak clearly, as well as weak and unable to get out of bed. EMS notified, and uopn arrival the patient was found to be confused, and transported to [facility]. Pt seen and evaluated in ED and found to have symptoms consistent with CVA, Encephalopathy. Pt initiated on CVA protocol. Neurology consulted. Past History Past Medical History: acute IL, arthritis, CAD, diabetes, GERD, hypertension Past Surgical History: Other (stent placement) Social history: , lives with family. denies: smoking, alcohol abuse, prescription drug abuse Family history: diabetes, hypertension Medications and Allergies Allergies Allergy/AdvReac Type Severity Reaction Status Date / Time aspirin Allergy Hives Verified 04/30/17 11:07 Home Medications Medication Instructions Recorded Confirmed Last Taken Type Atenolol [Tenormin] 50 mg PO DAILY #30 tablet 04/18/18 Unknown Rx Atenolol [Tenormin] 50 mg PO QDAY tablet 04/18/18 Unknown Rx AtorvaSTATin [Lipitor] 20 mg PO QHS #30 tablet 04/18/18 Unknown Rx ISOSORBIDE MONOnitrate [Imdur ER] 60 mg PO QDAY #30 tablet 04/18/18 Unknown Rx Lisinopril [Zestril TAB] 40 mg PO QDAY tablet 04/18/18 Unknown Rx Lisinopril [Zestril TAB] 40 mg PO QDAY #30 tablet 04/18/18 Unknown Rx Review of Systems ROS unobtainable: due to mental status Exam - Constitutional Vitals: Temp Pulse Resp BP Pulse Ox 98.6 F 79 16 168/92 97 05/12/18 09:38 05/12/18 11:10 05/12/18 11:11 05/12/18 14:35 05/12/18 11:11 General appearance: Present: mild distress - EENT Eyes: Present: PERRL ENT: hearing intact, clear oral mucosa - Neck Neck: Present: supple, normal ROM - Respiratory Respiratory effort: normal Respiratory: bilateral: CTA - Cardiovascular Heart Sounds: Present: S1 & S2. Absent: rub, click - Extremities Extremities: pulses symmetrical, No edema Peripheral Pulses: within normal limits - Abdominal General gastrointestinal: Present: soft, non-tender, non-distended, normal bowel sounds Female genitourinary: Present: normal - Integumentary Integumentary: Present: clear, warm, dry - Musculoskeletal Musculoskeletal: generalized weakness - Psychiatric Psychiatric: no appropriate mood/affect, no intact judgment & insight, no memory intact - Neurologic Neurologic: CNII-XII intact, no focal deficits, moves all extremities, no gait normal Results - Labs CBC & Chem 7: 05/12/18 10:14 05/12/18 10:14 Labs: Abnormal lab results 05/12/18 05/12/18 05/12/18 Range/Units 10:14 10:14 14:58 Hgb 14.6 H (10.1-14.3) gm/dl Hct 43.8 H (30.3-42.9) % MCV 101 H (79-97) fl MCH 34 H (28-32) pg Lymph % (Auto) 9.2 L (13.4-35.0) % [place] % (Auto) 9.5 H (0.0-7.3) % Lymph # 0.6 L (1.2-5.4) K/mm3 Seg Neutrophils % 81.0 H (40.0-70.0) % Creatinine 0.6 L (0.7-1.2) mg/dL Glucose 124 H (65-100) mg/dL POC Glucose 125 H (70-105) Assessment and Plan - Patient Problems (1) CVA (cerebral vascular accident) Current Visit: Yes Status: Suspected Qualifiers: Precerebral and cerebral artery: posterior cerebral artery Laterality of affected vessel: bilateral Plan to address problem: Stroke Protocol: CT head, MRI Brain, MRA Brain, Neuro check, Carotid Doppler, seizure precautions, aspiration precautions, PT/OT/Speech Therapy, Antiplatelet therapy, statin therapy, (2) Encephalopathy Current Visit: Yes Status: Acute Plan to address problem: CT head, Neuro check, seizure precautions, aspiration precautions,thyroid panel (3) HTN (hypertension) Current Visit: Yes Status: Acute Qualifiers: Hypertension type: essential hypertension Qualified Code(s): I10 - Essential (primary) hypertension Plan to address problem: monitor bp q shift, continue medical management, permissive hypertension overnight (4) Debility Current Visit: Yes Status: Acute Plan to address problem: PT consulted, Case management consulted for D/C Planning Rehab/SNF placement (5) Diabetes Current Visit: Yes Status: Acute Plan to address problem: ADA diet, insulin, Accu check (6) DVT prophylaxis Onset Date: 12/20/17 Current Visit: No Status: Resolved Plan to address problem: SCD to BLE while in bed.
[2018-05-12] MEDS ORDERED: ZOFRAN IV PRN (15:50)
[2018-05-12] MEDS ORDERED: MILK OF MAGNESIA PO PRN (15:50)
[2018-05-12] MEDS ORDERED: PROVENTIL IH PRN (15:50)
[2018-05-12] MEDS ORDERED: PHENERGAN PR PRN (15:50)
[2018-05-12] MEDS ORDERED: REGLAN PO PRN (15:50)
[2018-05-12] MEDS ORDERED: TYLENOL PO PRN (15:50)
[2018-05-12] MEDS ORDERED: SODIUM CHLORIDE FLUSH SYRINGE 10 ML IV PRN (15:50)
[2018-05-12] MEDS ORDERED: DULCOLAX PR PRN (15:50)
[2018-05-12 16:42] LABS: Free T4 (Free Thyroxine) 1.11 ng/dL (0.76-1.46)
--- NOTE | 2018-05-12 17:44 | Consultation ---
History of Present Illness Consult date: 05/12/18 Chief complaint: trouble walking History of present illness: This is an 82 YO F with history of multiple medical complaints including dementia who presented to the ED with several vague complaints and possibly not walking well. No family at bedside and pt has dementia nd can not give much history. Says he feels ok now but she has a headache. Doesn't want any medications. Can't really say why she is here. Answers questions and follows commands. Past History Past Medical History: arthritis, CAD, diabetes, GERD, hypertension Past Surgical History: Other (cardiac stent) Social history: lives with family Family history: hypertension Medications and Allergies Allergies Allergy/AdvReac Type Severity Reaction Status Date / Time aspirin Allergy Hives Verified 04/30/17 11:07 Home Medications Medication Instructions Recorded Confirmed Last Taken Type Atenolol [Tenormin] 50 mg PO DAILY #30 tablet 04/18/18 Unknown Rx Atenolol [Tenormin] 50 mg PO QDAY tablet 04/18/18 Unknown Rx AtorvaSTATin [Lipitor] 20 mg PO QHS #30 tablet 04/18/18 Unknown Rx ISOSORBIDE MONOnitrate [Imdur ER] 60 mg PO QDAY #30 tablet 04/18/18 Unknown Rx Lisinopril [Zestril TAB] 40 mg PO QDAY tablet 04/18/18 Unknown Rx Lisinopril [Zestril TAB] 40 mg PO QDAY #30 tablet 04/18/18 Unknown Rx Active Meds: Active Medications Acetaminophen (Tylenol) 650 mg PO Q4H PRN PRN Reason: Pain, Mild (1-3) Albuterol (Proventil) 2.5 mg IH Q3HRT PRN PRN Reason: Shortness Of Breath Aspirin (Aspirin) 325 mg PO QDAY RIRI Atenolol (Tenormin) 50 mg PO QDAY RIRI Atorvastatin Calcium (Lipitor) 20 mg PO QHS RIRI Atorvastatin Calcium (Lipitor) 40 mg PO QHS RIRI Bisacodyl (Dulcolax) 10 mg NC QDAY PRN PRN Reason: Constipation Isosorbide Mononitrate (Imdur) 60 mg PO QDAY RIRI Lisinopril (Zestril) 40 mg PO QDAY RIRI Magnesium Hydroxide (Milk Of Magnesia) 30 ml PO Q4H PRN PRN Reason: Constipation Metoclopramide HCl (Reglan) 10 mg PO Q6H PRN PRN Reason: Nausea And Vomiting Ondansetron HCl (Zofran) 4 mg IV Q8H PRN PRN Reason: Nausea And Vomiting Promethazine HCl (Phenergan) 25 mg NC Q6H PRN PRN Reason: Nausea And Vomiting Sodium Chloride (Sodium Chloride Flush Syringe 10 Ml) 10 ml IV PRN PRN PRN Reason: LINE FLUSH Physical Examination - Vital Signs Vital Signs: Vital Signs Temp Pulse Resp BP Pulse Ox 98.6 F 89 18 222/93 95 05/12/18 09:38 05/12/18 09:38 05/12/18 09:38 05/12/18 09:38 05/12/18 09:38 - EENT EENT: Present: PERRL, mucous membranes moist - Respiratory Respiratory: Present: lungs clear - Cardiovascular Cardiovascular: Present: regular rate Extremities: Present: no peripheral edema bilatateraly - Gastrointestinal Gastrointestinal: Present: normoactive bowel sounds - Integumentary Integumentary: Present: normal - Neurologic Cranial nerve examination: PERRL, EOMI, face symmetric, tongue midline Speech examination: intact Detailed motor examination: grossly full strength in Detailed sensory examination: light touch, temperature Reflex and gait examination: other (unsteady) Reflexes: 0: ankle, bicep, knee, tricep - Psychiatric Psychiatric: Present: mood/affect appropriate - Assessment Assessment Interval: Baseline - Level of Consciousness 1a. Level of Consciousness: alert/keenly responsive - LOC Questions 1b. LOC Questions: answers both correctly - LOC Command 1c. LOC Commands: performs tasks correctly - Best Gaze 2. Best Gaze: normal - Visual 3. Visual: no visual loss - Facial Palsy 4. Facial Palsy: normal symmetrical movement - Motor Arm 5b. Motor Arm Right: no drift - Motor Leg 6a. Motor Leg Left: no drift - Limb Ataxia 7. Limb Ataxia: absent - Sensory 8. Sensory: normal - Best Language 9. Best Language: no aphasia - Dysarthria 10. Dysarthria: normal - Extinction and Inattention 11. Extinction/Inattention: no abnormality Results - Laboratory Findings CBC and BMP: 05/12/18 10:14 05/12/18 10:14 Abnormal Lab Findings: Abnormal Labs 05/12/18 05/12/18 05/12/18 10:14 10:14 14:58 Hgb 14.6 H Hct 43.8 H MCV 101 H MCH 34 H Lymph % (Auto) 9.2 L Dickenson % (Auto) 9.5 H Lymph # 0.6 L Seg Neutrophils % 81.0 H D-Dimer Creatinine 0.6 L Glucose 124 H POC Glucose 125 H 05/12/18 15:44 Hgb Hct MCV MCH Lymph % (Auto) Dickenson % (Auto) Lymph # Seg Neutrophils % D-Dimer 506.89 H Creatinine Glucose POC Glucose - Diagnostic Findings Additional findings: Head CT without acute findings Assessment and Plan This is an 82 YO F who presented with vague complaints in the setting of low blood glucose and elevated blood pressure. Will rule out stroke . REcommend: MRI Brain/MRA head, echo, carotids, PT/OT/ST, VTE prophylaxis, lipids and A1C aspirin and statin Would go ahead and lower BP as per protocol, slowly since pt is older Continue care for her medical issues as you are doing Call with any questions.
[2018-05-12 20:23] LABS: Free T4 (Free Thyroxine) 1.1 ng/dL (0.76-1.46)
--- NOTE | 2018-05-12 22:29 | Vascular Lab Report ---
PROCEDURE: CAROTID DUPLEX BILAT TECHNIQUE: PROCEDURE: CAROTID DUPLEX BILAT TECHNIQUE: Duplex Doppler ultrasound of the common, internal and external carotid arteries and the v ertebral arteries was performed bilaterally. Betts scale imaging, velocity spectral waveform analysis, and color flow Doppler were employed. HISTORY: stroke COMPARISONS: None . Note: Measurement of carotid stenosis is based on flow velocity values that correlate with the [place] Symptomatic Carotid Endarterectomy Trial (NASCET) based stenosis criteria using the internal carotid artery diameter as the denominator for stenosis calculation. FINDINGS: RIGHT carotid artery: Velocities: ICA PSV: 141 cm/sec ICA End diastolic: 24 cm/sec CCA PSV: 82 cm/sec IC/CC ratio: 1.7 2 Plaque: mild degree calcified plaque formation is noted.. RIGHT vertebral artery: Antegrade systolic and diastolic flow LEFT carotid artery: Velocities: ICA PSV: 149 cm/sec ICA End diastolic: 16 cm/sec CCA PSV: 98 cm/sec IC/CC ratio: 1.5 2 Plaque: Moderate degree calcified plaque formation is noted at the carotid bifurcation.. LEFT vertebral artery: Antegrade systolic and diastolic flow IMPRESSION: 1. RIGHT carotid: 50-69% stenosis of the internal carotid artery. 2. LEFT carotid: 50-69% stenosis of the internal carotid artery. 3. Vertebral arteries: Bilaterally antegrade. This document is electronically signed by Aaron Campuzano MD., May 12 2018 10:26:16 PM ET
[2018-05-13] MEDS: IMDUR PO SCH (10:29)
[2018-05-13] MEDS: ZESTRIL PO SCH (10:29)
[2018-05-13] MEDS: ASPIRIN PO SCH (10:29)
[2018-05-13] MEDS: LEVAQUIN 750MG/150ML 750 MG/150 ML BAG IV SCH ×2 (10:30→18:42)
[2018-05-13] MEDS: TENORMIN PO SCH (10:35)
--- NOTE | 2018-05-13 11:14 | Progress Note ---
Assessment and Plan Assessment and plan: Encephalopathy To r/o stroke For MRI brain Dementia Supportive care Hypertenson Continue Atenolol, Lisonopril Hyperlipidemia Full code status History Interval history: Altered mental status, no chest pain No shortness of breath Hospitalist Physical - Physical exam Narrative exam: GEN: Not in acute distress, lying in bed HEENT: Normocephalic, atraumatic, Neck: supple, No JVD Lungs: Clear to auscultation bilaterally, Abd:soft, non tender, non distended, normal bowel sounds Ext: No edema, no clubbing, no cyanosis Neuro:Awake,alert,oriented in person, not to place or time, has dementia, moves all ext Skin:No rash - Constitutional Vitals: Temp Pulse Resp BP Pulse Ox 98.0 F 84 16 144/60 95 05/13/18 03:42 05/13/18 10:29 05/13/18 06:55 05/13/18 10:29 05/13/18 03:42 Results - Labs CBC & Chem 7: 05/12/18 10:14 05/12/18 10:14 Labs: Laboratory Last Values WBC 6.5 K/mm3 (4.5-11.0) 05/12/18 10:14 RBC 4.33 M/mm3 (3.65-5.03) 05/12/18 10:14 Hgb 14.6 gm/dl (10.1-14.3) H 05/12/18 10:14 Hct 43.8 % (30.3-42.9) H 05/12/18 10:14 MCV 101 fl (79-97) H 05/12/18 10:14 MCH 34 pg (28-32) H 05/12/18 10:14 MCHC 33 % (30-34) 05/12/18 10:14 RDW 13.2 % (13.2-15.2) 05/12/18 10:14 Plt Count 152 K/mm3 (140-440) 05/12/18 10:14 Lymph % (Auto) 9.2 % (13.4-35.0) L 05/12/18 10:14 [place] % (Auto) 9.5 % (0.0-7.3) H 05/12/18 10:14 Eos % (Auto) 0.0 % (0.0-4.3) 05/12/18 10:14 Baso % (Auto) 0.3 % (0.0-1.8) 05/12/18 10:14 Lymph # 0.6 K/mm3 (1.2-5.4) L 05/12/18 10:14 [place] # 0.6 K/mm3 (0.0-0.8) 05/12/18 10:14 Eos # 0.0 K/mm3 (0.0-0.4) 05/12/18 10:14 Baso # 0.0 K/mm3 (0.0-0.1) 05/12/18 10:14 Seg Neutrophils % 81.0 % (40.0-70.0) H 05/12/18 10:14 Seg Neutrophils # 5.3 K/mm3 (1.8-7.7) 05/12/18 10:14 D-Dimer 506.89 ng/mlDDU (0-234) H 05/12/18 15:44 VBG pH 7.345 (7.320-7.420) 05/12/18 10:14 Sodium 141 mmol/L (137-145) 05/12/18 10:14 Potassium 4.0 mmol/L (3.6-5.0) 05/12/18 10:14 Chloride 102.7 mmol/L (98-107) 05/12/18 10:14 Carbon Dioxide 26 mmol/L (22-30) 05/12/18 10:14 Anion Gap 16 mmol/L 05/12/18 10:14 BUN 12 mg/dL (7-17) 05/12/18 10:14 Creatinine 0.6 mg/dL (0.7-1.2) L 05/12/18 10:14 Estimated GFR > 60 ml/min 05/12/18 10:14 BUN/Creatinine Ratio 20 % 05/12/18 10:14 Glucose 124 mg/dL (65-100) H 05/12/18 10:14 POC Glucose 173 (70-105) H 05/13/18 07:34 Calcium 9.5 mg/dL (8.4-10.2) 05/12/18 10:14 Total Bilirubin 0.80 mg/dL (0.1-1.2) 05/12/18 10:14 AST 30 units/L (5-40) 05/12/18 10:14 ALT 13 units/L (7-56) 05/12/18 10:14 Alkaline Phosphatase 93 units/L (35-129) 05/12/18 10:14 Troponin T < 0.010 ng/mL (0.00-0.029) 05/12/18 10:14 Total Protein 7.2 g/dL (6.3-8.2) 05/12/18 10:14 Albumin 4.0 g/dL (3.9-5) 05/12/18 10:14 Albumin/Globulin Ratio 1.3 % 05/12/18 10:14 TSH 0.751 mlU/mL (0.270-4.200) 05/12/18 19:09 Free T4 1.10 ng/dL (0.76-1.46) 05/12/18 19:09 Urine Color Yellow (Yellow) 05/12/18 13:17 Urine Turbidity Clear (Clear) 05/12/18 13:17 Urine pH 7.0 (5.0-7.0) 05/12/18 13:17 Ur Specific [place] 1.013 (1.003-1.030) 05/12/18 13:17 Urine Protein <15 mg/dl mg/dL (Negative) 05/12/18 13:17 Urine Glucose (UA) Neg mg/dL (Negative) 05/12/18 13:17 Urine Ketones Tr mg/dL (Negative) 05/12/18 13:17 Urine Blood Neg (Negative) 05/12/18 13:17 Urine Nitrite Neg (Negative) 05/12/18 13:17 Urine Bilirubin Neg (Negative) 05/12/18 13:17 Urine Urobilinogen < 2.0 mg/dL (<2.0) 05/12/18 13:17 Ur Leukocyte Esterase Neg (Negative) 05/12/18 13:17 Urine WBC (Auto) 1.0 /HPF (0.0-6.0) 05/12/18 13:17 Urine RBC (Auto) 3.0 /HPF (0.0-6.0) 05/12/18 13:17 U Epithel Cells (Auto) 1.0 /HPF (0-13.0) 05/12/18 13:17 Urine Mucus Few /HPF 05/12/18 13:17
--- NOTE | 2018-05-13 13:28 | Cat Scan Report ---
CTA CHEST INDICATION: Elevated d-dimer. COMPARISON: 10/08/2017 chest CTA. FINDINGS: Chest CTA performed following intravenous administration of 100 cc of Omnipaque 350. Rotational MIP's also obtained. Stable heart and great vessels, including aortic arch atherosclerotic calcifications. No suspicious pulmonary arterial filling defects. No effusions or size significant adenopathy. Patent central airway. Stable diminutive left thyroid lobe with asymmetrically enlarged right lobe demonstrating approximately 2 cm intrinsic hypodense nodule as on axial series 2, image 13, amongst others. New left mid to lower lung pneumonias with nodular airspace opacities now noted on axial series 2, images 48-88 with largest measurement approximately 7.9 x 3.8 cm as on axial image 59, series 2. Similar, though lesser involvement of the left upper lobe also seen inferiorly as on axial image 51 as also subtle haziness may be developing more superiorly as on axial image 31, amongst others. Mild bibasilar scarring/atelectasis again noted. Subtle pneumonia/airspace opacity difficult to entirely exclude developing in the right lower lobe as on axial image 54, amongst others. Subtle 2 mm peripheral right middle lobe noncalcified nodular density may again be noted, axial image 56, series 2. Nonspecific distal esophageal wall mild prominence/thickening, not excluded for gastroesophageal reflux and/or hiatal hernia, amongst others. Gallbladder now somewhat contracted. Stable small right hepatic calcified granuloma. Stomach now distended with ingested debris. Slight nonspecific bilateral perinephric stranding. Demineralized bones with stable multilevel imaged spinal degenerative changes. CONCLUSION: 1. No CT evidence of pulmonary embolism, though new pneumonias now noted, more so in the left mid to lower lung zone, as detailed above. Please correlate. 2. Various other incidental findings, as described. Thank you for the opportunity to participate in this patient's care.
[2018-05-13] MEDS: HumaLOG SUB-Q SCH (21:46)
[2018-05-14] MEDS: HumaLOG SUB-Q SCH ×4 (08:31→22:10)
[2018-05-14] MEDS: ZESTRIL PO SCH (10:07)
[2018-05-14] MEDS: ASPIRIN PO SCH (10:07)
[2018-05-14] MEDS: IMDUR PO SCH (10:07)
[2018-05-14] MEDS: TENORMIN PO SCH (10:08)
--- NOTE | 2018-05-14 13:29 | Magnetic Resonance Report ---
PROCEDURE: MR BRAIN WO CON TECHNIQUE: Magnetic resonance imaging of the brain was performed without contrast material. HISTORY: stroke COMPARISONS: None . FINDINGS: MRI of the brain was performed using sagittal T1, axial diffusion, axial T2, axial FLAIR, a xial T2*gradient echo, coronal FLAIR, axial T1-weighted images. These images demonstrate that there is a complete corpus callosum. There is no Chiari malformation. Diffusion-weighted images demonstrate no acute transcortical or acute lacunar infarct. There is an old right temporal infarct with focal encephalomalacia. There is an old right posterior p arietal infarct with focal encephalomalacia. There is an old left basal ganglia lacunar infarct, 0.8 x 0.4 cm. There are mild chronic appearing sm all vessel ischemic white matter changes in the subcortical and periventricular white matter. There is partial opacification of the right mastoid air cells. The left mastoid air cells appear lindsay r. There is a right ethmoid polyp versus mucus retention cyst. 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
--- NOTE | 2018-05-14 13:29 | Magnetic Resonance Report ---
PROCEDURE: MR MRAHEAD WO CON HISTORY: stroke FINDINGS: MRA was performed using [id number] angiography. Data was reformatted in multiple projec tions. In the posterior circulation the vertebral arteries are patent. The left vertebral artery appears dom inant. The basilar artery is widely patent. Both posterior cerebral arteries are identified and appea r patent. In the anterior circulation, there is a moderate stenosis of the distal aspect of the right M1 segmen t of the middle cerebral artery. The M2 and M3 segments appear somewhat small but are patent. The lef t middle cerebral artery appears widely patent. Both anterior cerebral arteries appear patent. No ane urysm is seen. 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
[2018-05-14] MEDS: LEVAQUIN 750MG/150ML 750 MG/150 ML BAG IV SCH (17:55)
[2018-05-15] MEDS ORDERED: ALUM-MAG HYDROX-SIMETH 200-200-20MG/5ML PO PRN (10:22)
--- NOTE | 2018-05-15 10:30 | Progress Note ---
Assessment and Plan Assessment and plan: Encephalopathy MRI brain negfative for stroke Dementia Supportive care Patient and family interested in SNF Case management working on it. Hypertenson Continue Atenolol, Lisonopril Hyperlipidemia Full code status History Interval history: Altered mental status, no chest pain No shortness of breath Hospitalist Physical - Physical exam Narrative exam: GEN: Not in acute distress, lying in bed HEENT: Normocephalic, atraumatic, Neck: supple, No JVD Lungs: Clear to auscultation bilaterally, Abd:soft, non tender, non distended, normal bowel sounds Ext: No edema, no clubbing, no cyanosis Neuro:Awake,alert,oriented in person, not to place or time, has dementia, moves all ext Skin:No rash - Constitutional Vitals: Temp Pulse Resp BP Pulse Ox 98.4 F 69 18 185/73 98 05/15/18 07:29 05/15/18 03:52 05/15/18 07:29 05/15/18 07:29 05/15/18 03:52 Results - Labs CBC & Chem 7: 05/12/18 10:14 05/12/18 10:14 Labs: Laboratory Last Values WBC 6.5 K/mm3 (4.5-11.0) 05/12/18 10:14 RBC 4.33 M/mm3 (3.65-5.03) 05/12/18 10:14 Hgb 14.6 gm/dl (10.1-14.3) H 05/12/18 10:14 Hct 43.8 % (30.3-42.9) H 05/12/18 10:14 MCV 101 fl (79-97) H 05/12/18 10:14 MCH 34 pg (28-32) H 05/12/18 10:14 MCHC 33 % (30-34) 05/12/18 10:14 RDW 13.2 % (13.2-15.2) 05/12/18 10:14 Plt Count 152 K/mm3 (140-440) 05/12/18 10:14 Lymph % (Auto) 9.2 % (13.4-35.0) L 05/12/18 10:14 [place] % (Auto) 9.5 % (0.0-7.3) H 05/12/18 10:14 Eos % (Auto) 0.0 % (0.0-4.3) 05/12/18 10:14 Baso % (Auto) 0.3 % (0.0-1.8) 05/12/18 10:14 Lymph # 0.6 K/mm3 (1.2-5.4) L 05/12/18 10:14 [place] # 0.6 K/mm3 (0.0-0.8) 05/12/18 10:14 Eos # 0.0 K/mm3 (0.0-0.4) 05/12/18 10:14 Baso # 0.0 K/mm3 (0.0-0.1) 05/12/18 10:14 Seg Neutrophils % 81.0 % (40.0-70.0) H 05/12/18 10:14 Seg Neutrophils # 5.3 K/mm3 (1.8-7.7) 05/12/18 10:14 D-Dimer 506.89 ng/mlDDU (0-234) H 05/12/18 15:44 VBG pH 7.345 (7.320-7.420) 05/12/18 10:14 Sodium 141 mmol/L (137-145) 05/12/18 10:14 Potassium 4.0 mmol/L (3.6-5.0) 05/12/18 10:14 Chloride 102.7 mmol/L (98-107) 05/12/18 10:14 Carbon Dioxide 26 mmol/L (22-30) 05/12/18 10:14 Anion Gap 16 mmol/L 05/12/18 10:14 BUN 12 mg/dL (7-17) 05/12/18 10:14 Creatinine 0.6 mg/dL (0.7-1.2) L 05/12/18 10:14 Estimated GFR > 60 ml/min 05/12/18 10:14 BUN/Creatinine Ratio 20 % 05/12/18 10:14 Glucose 124 mg/dL (65-100) H 05/12/18 10:14 POC Glucose 138 (70-105) H 05/15/18 07:12 Calcium 9.5 mg/dL (8.4-10.2) 05/12/18 10:14 Total Bilirubin 0.80 mg/dL (0.1-1.2) 05/12/18 10:14 AST 30 units/L (5-40) 05/12/18 10:14 ALT 13 units/L (7-56) 05/12/18 10:14 Alkaline Phosphatase 93 units/L (35-129) 05/12/18 10:14 Troponin T < 0.010 ng/mL (0.00-0.029) 05/12/18 10:14 Total Protein 7.2 g/dL (6.3-8.2) 05/12/18 10:14 Albumin 4.0 g/dL (3.9-5) 05/12/18 10:14 Albumin/Globulin Ratio 1.3 % 05/12/18 10:14 TSH 0.751 mlU/mL (0.270-4.200) 05/12/18 19:09 Free T4 1.10 ng/dL (0.76-1.46) 05/12/18 19:09 Urine Color Yellow (Yellow) 05/12/18 13:17 Urine Turbidity Clear (Clear) 05/12/18 13:17 Urine pH 7.0 (5.0-7.0) 05/12/18 13:17 Ur Specific [place] 1.013 (1.003-1.030) 05/12/18 13:17 Urine Protein <15 mg/dl mg/dL (Negative) 05/12/18 13:17 Urine Glucose (UA) Neg mg/dL (Negative) 05/12/18 13:17 Urine Ketones Tr mg/dL (Negative) 05/12/18 13:17 Urine Blood Neg (Negative) 05/12/18 13:17 Urine Nitrite Neg (Negative) 05/12/18 13:17 Urine Bilirubin Neg (Negative) 05/12/18 13:17 Urine Urobilinogen < 2.0 mg/dL (<2.0) 05/12/18 13:17 Ur Leukocyte Esterase Neg (Negative) 05/12/18 13:17 Urine WBC (Auto) 1.0 /HPF (0.0-6.0) 05/12/18 13:17 Urine RBC (Auto) 3.0 /HPF (0.0-6.0) 05/12/18 13:17 U Epithel Cells (Auto) 1.0 /HPF (0-13.0) 05/12/18 13:17 Urine Mucus Few /HPF 05/12/18 13:17
[2018-05-15] MEDS: HumaLOG SUB-Q SCH ×4 (10:34→21:23)
[2018-05-15] MEDS: ASPIRIN PO SCH (11:14)
[2018-05-15] MEDS: ZESTRIL PO SCH (11:14)
[2018-05-15] MEDS: TENORMIN PO SCH (11:14)
[2018-05-15] MEDS: IMDUR PO SCH (11:14)
[2018-05-15] MEDS: LEVAQUIN 750MG/150ML 750 MG/150 ML BAG IV SCH (18:19)
[2018-05-16] MEDS: ASPIRIN PO SCH (09:48)
[2018-05-16] MEDS: ZESTRIL PO SCH (09:48)
[2018-05-16] MEDS: TENORMIN PO SCH (09:48)
[2018-05-16] MEDS: IMDUR PO SCH (09:48)
[2018-05-16] MEDS: HumaLOG SUB-Q SCH ×4 (10:06→21:39)
--- NOTE | 2018-05-16 14:08 | XRay Report ---
PROCEDURE: XR CHEST 1V AP TECHNIQUE: Chest radiograph single view. HISTORY: Infiltrate FINDINGS: Frontal view of the chest was acquired and compared to the prior examination of December 30, 2017. IMPRESSION: The heart is normal in size. The lungs appear clear. The pleura and mediastinum are withi n normal limits. IMPRESSION: No active disease in the chest This document is electronically signed by Chaim Nichols MD., May 13 2018 05:58:40 PM ET
--- NOTE | 2018-05-16 14:58 | Progress Note ---
Assessment and Plan Assessment and plan: Patient is 82-year-old with hypertension, diabetes, dementia,coronary artery disease. She was brought to Emergency Department because of confusion. CT head was unremarkable. Patient given aspirin and admitted to rule out stroke. MRI brain was negative for stroke. Altered mental status likely secondary to dementia and metabolic encephalopathy. Patient and family request SNF placement. She is medically stable, awaiting placement. Encephalopathy MRI brain negative for stroke Dementia Supportive care Patient and family interested in SNF Case management working on it. Hypertenson Continue Atenolol, Lisonopril Diabetes mellitus type 2 Accuchek CAD Stable. No chest pain On Aspirin, Atenolol, Lipitor Hyperlipidemia Full code status Patient medically stable to discharge, awaiting placement to SNF History Interval history: Less confusion no chest pain No shortness of breath Hospitalist Physical - Physical exam Narrative exam: GEN: Not in acute distress, lying in bed HEENT: Normocephalic, atraumatic, Neck: supple, No JVD Lungs: Clear to auscultation bilaterally, Abd:soft, non tender, non distended, normal bowel sounds Ext: No edema, no clubbing, no cyanosis Neuro:Awake,alert,oriented in person, not to place or time, has dementia, moves all ext Skin:No rash - Constitutional Vitals: Temp Pulse Resp BP Pulse Ox 98.3 F 65 18 161/70 100 05/16/18 11:43 05/16/18 11:41 05/16/18 11:41 05/16/18 11:41 05/16/18 11:41 Results - Labs CBC & Chem 7: 05/12/18 10:14 05/12/18 10:14 Labs: Laboratory Last Values WBC 6.5 K/mm3 (4.5-11.0) 05/12/18 10:14 RBC 4.33 M/mm3 (3.65-5.03) 05/12/18 10:14 Hgb 14.6 gm/dl (10.1-14.3) H 05/12/18 10:14 Hct 43.8 % (30.3-42.9) H 05/12/18 10:14 MCV 101 fl (79-97) H 05/12/18 10:14 MCH 34 pg (28-32) H 05/12/18 10:14 MCHC 33 % (30-34) 05/12/18 10:14 RDW 13.2 % (13.2-15.2) 05/12/18 10:14 Plt Count 152 K/mm3 (140-440) 05/12/18 10:14 Lymph % (Auto) 9.2 % (13.4-35.0) L 05/12/18 10:14 [place] % (Auto) 9.5 % (0.0-7.3) H 05/12/18 10:14 Eos % (Auto) 0.0 % (0.0-4.3) 05/12/18 10:14 Baso % (Auto) 0.3 % (0.0-1.8) 05/12/18 10:14 Lymph # 0.6 K/mm3 (1.2-5.4) L 05/12/18 10:14 [place] # 0.6 K/mm3 (0.0-0.8) 05/12/18 10:14 Eos # 0.0 K/mm3 (0.0-0.4) 05/12/18 10:14 Baso # 0.0 K/mm3 (0.0-0.1) 05/12/18 10:14 Seg Neutrophils % 81.0 % (40.0-70.0) H 05/12/18 10:14 Seg Neutrophils # 5.3 K/mm3 (1.8-7.7) 05/12/18 10:14 D-Dimer 506.89 ng/mlDDU (0-234) H 05/12/18 15:44 VBG pH 7.345 (7.320-7.420) 05/12/18 10:14 Sodium 141 mmol/L (137-145) 05/12/18 10:14 Potassium 4.0 mmol/L (3.6-5.0) 05/12/18 10:14 Chloride 102.7 mmol/L (98-107) 05/12/18 10:14 Carbon Dioxide 26 mmol/L (22-30) 05/12/18 10:14 Anion Gap 16 mmol/L 05/12/18 10:14 BUN 12 mg/dL (7-17) 05/12/18 10:14 Creatinine 0.6 mg/dL (0.7-1.2) L 05/12/18 10:14 Estimated GFR > 60 ml/min 05/12/18 10:14 BUN/Creatinine Ratio 20 % 05/12/18 10:14 Glucose 124 mg/dL (65-100) H 05/12/18 10:14 POC Glucose 161 (70-105) H 05/16/18 11:41 Calcium 9.5 mg/dL (8.4-10.2) 05/12/18 10:14 Total Bilirubin 0.80 mg/dL (0.1-1.2) 05/12/18 10:14 AST 30 units/L (5-40) 05/12/18 10:14 ALT 13 units/L (7-56) 05/12/18 10:14 Alkaline Phosphatase 93 units/L (35-129) 05/12/18 10:14 Troponin T < 0.010 ng/mL (0.00-0.029) 05/12/18 10:14 Total Protein 7.2 g/dL (6.3-8.2) 05/12/18 10:14 Albumin 4.0 g/dL (3.9-5) 05/12/18 10:14 Albumin/Globulin Ratio 1.3 % 05/12/18 10:14 TSH 0.751 mlU/mL (0.270-4.200) 05/12/18 19:09 Free T4 1.10 ng/dL (0.76-1.46) 05/12/18 19:09 Urine Color Yellow (Yellow) 05/12/18 13:17 Urine Turbidity Clear (Clear) 05/12/18 13:17 Urine pH 7.0 (5.0-7.0) 05/12/18 13:17 Ur Specific [place] 1.013 (1.003-1.030) 05/12/18 13:17 Urine Protein <15 mg/dl mg/dL (Negative) 05/12/18 13:17 Urine Glucose (UA) Neg mg/dL (Negative) 05/12/18 13:17 Urine Ketones Tr mg/dL (Negative) 05/12/18 13:17 Urine Blood Neg (Negative) 05/12/18 13:17 Urine Nitrite Neg (Negative) 05/12/18 13:17 Urine Bilirubin Neg (Negative) 05/12/18 13:17 Urine Urobilinogen < 2.0 mg/dL (<2.0) 05/12/18 13:17 Ur Leukocyte Esterase Neg (Negative) 05/12/18 13:17 Urine WBC (Auto) 1.0 /HPF (0.0-6.0) 05/12/18 13:17 Urine RBC (Auto) 3.0 /HPF (0.0-6.0) 05/12/18 13:17 U Epithel Cells (Auto) 1.0 /HPF (0-13.0) 05/12/18 13:17 Urine Mucus Few /HPF 05/12/18 13:17
[2018-05-16] MEDS: HEPARIN SUB-Q SCH (21:38)
[2018-05-16] MEDS ORDERED: LEVAQUIN PO SCH (22:00)
[2018-05-17] MEDS: TENORMIN PO SCH (09:48)
[2018-05-17] MEDS: HEPARIN SUB-Q SCH (09:48)
[2018-05-17] MEDS: ASPIRIN PO SCH (09:49)
[2018-05-17] MEDS: IMDUR PO SCH (09:49)
[2018-05-17] MEDS: ZESTRIL PO SCH (09:50)
[2018-05-17] MEDS ORDERED: NORVASC PO SCH (10:00)
[2018-05-17] MEDS: HumaLOG SUB-Q SCH ×2 (12:43→12:44)
--- NOTE | 2018-05-17 12:52 | Vascular Lab Report ---
PROCEDURE: VL VENOUS DUPLEX LE BILAT TECHNIQUE: Transverse longitudinal sonograms obtained with clements scale sonography. Spectral and color Doppler evaluation. Duplex study. Compression and augmentation performed. HISTORY: Elevated d-dimer COMPARISONS: None FINDINGS: The bilateral common femoral, superficial femoral, popliteal and visualized calf veins demonstrate no rmal flow with Doppler. No filling defects. Unremarkable response to compression and augmentation. No evidence of deep venous thrombosis in either lower extremity.. IMPRESSION: No evidence of deep venous thrombus in either lower extremity. This document is electronically signed by Garry Hdez MD., May 17 2018 12:50:29 PM ET
--- NOTE | 2018-05-17 14:33 | Progress Note ---
Assessment and Plan Patient is 82-year-old with hypertension, diabetes, dementia,coronary artery disease. She was brought to Emergency Department because of confusion. CT head was unremarkable. Patient given aspirin and admitted to rule out stroke. MRI brain was negative for stroke. Altered mental status likely secondary to dementia and metabolic encephalopathy. Patient and family request SNF placement. She is medically stable, awaiting placement. Encephalopathy MRI brain negative for stroke Dementia Supportive care Patient and family interested in SNF Case management working on it. Hypertenson Continue Atenolol, Lisonopril Diabetes mellitus type 2 Accuchek CAD Stable. No chest pain On Aspirin, Atenolol, Lipitor Hyperlipidemia Full code status Patient medically stable to discharge, awaiting placement to SNF History Interval history: Less confusion no chest pain No shortness of breath Hospitalist Physical - Physical exam Narrative exam: GEN: Not in acute distress, lying in bed HEENT: Normocephalic, atraumatic, Neck: supple, No JVD Lungs: Clear to auscultation bilaterally, Abd:soft, non tender, non distended, normal bowel sounds Ext: No edema, no clubbing, no cyanosis Neuro:Awake,alert,oriented in person, not to place or time, has dementia, moves all ext Skin:No rash Subjective Date of service: 05/17/18 Objective - Constitutional Vitals: Vital Signs - 12hr 05/17/18 05/17/18 05/17/18 04:44 07:29 09:48 Temperature 98.3 F 98.2 F Pulse Rate 68 Respiratory 18 20 Rate Blood Pressure 198/87 179/78 179/78 O2 Sat by Pulse 97 Oximetry 05/17/18 05/17/18 05/17/18 09:49 09:50 09:58 Temperature Pulse Rate Respiratory Rate Blood Pressure 179/78 179/78 179/78 O2 Sat by Pulse Oximetry - Labs CBC & Chem 7: 05/12/18 10:14 05/12/18 10:14 Labs: Abnormal lab results 05/16/18 05/16/18 05/17/18 Range/Units 16:49 21:17 07:31 POC Glucose 132 H 114 H 119 H (70-105) 05/17/18 Range/Units 12:12 POC Glucose 148 H (70-105)
--- NOTE | 2018-05-17 15:22 | Discharge Summary ---
Providers - Providers Date of Admission: 05/12/18 15:51 Date of discharge: 05/17/18 Attending physician: MIRIAN VARGAS 05/12/18 Consult to Physician [CONS] Routine Comment: Consulting Provider: LORRAINE ORTIZ Physician Instructions: Reason For Exam: cva 05/12/18 15:51 Consult to Case Management [CONS] Routine Services Needed at Discharge: Other Notified:: Eddie Phone number called:: none Was contact made?: Yes If yes, spoke with:: Eddie Time called:: 11:48 Comment:: spoke to Eddie in person Additional Physician Instructions: D/C Planning/Placement, Rehab/SNF Occupational Therapy Evaluate and Treat [CONS] Routine Comment: Reason For Exam: Neuro deficits Physical Therapy Evaluation and Treat [CONS] Routine Comment: Reason For Exam: Neuro deficits 05/12/18 15:53 Speech Therapy Evaluation and Treat [CONS] Routine Reason For Exam: swallow eval Primary care physician: [employer] Hospitalization Condition: Fair Pertinent studies: head CT brain MRI/MRA chest CTA LE duplex 2d echo Hospital course: Patient is 82-year-old with hypertension, diabetes, dementia,coronary artery disease. She was brought to Emergency Department because of confusion. CT head was unremarkable. Patient given aspirin and admitted to rule out stroke. MRI brain was negative for stroke. Altered mental status likely secondary to dementia and metabolic encephalopathy. Patient and family request SNF placement. She is medically stable, awaiting placement. CM was able to find a SNF placement for her then she was discharged to SNF in stable condition. Discharge diagnosis and management: /Encephalopathy MRI brain negative for stroke /Dementia Supportive care Patient and family interested in SNF Case management working on it. /Hypertenson Continue Atenolol, Lisinopril /Diabetes mellitus type 2 Managed with Accuchek, SSI /CAD Stable. No chest pain On Aspirin, Atenolol, Lipitor /Hyperlipidemia, cont lipitor Full code status Patient medically stable to discharge, awaiting placement to SNF Hospitalist Physical GEN: Not in acute distress, lying in bed HEENT: Normocephalic, atraumatic, Neck: supple, No JVD Lungs: Clear to auscultation bilaterally, Abd:soft, non tender, non distended, normal bowel sounds Ext: No edema, no clubbing, no cyanosis Neuro:Awake,alert,oriented in person, not to place or time, has dementia, moves all ext Skin:No rash Disposition: [id number]/[place]-[id number] SNF [facility] Time spent for discharge: 34 minutes Core Measure Documentation - Palliative Care Palliative Care/ Comfort Measures: Not Applicable - Core Measures Any of the following diagnoses?: none Exam - Constitutional Vitals: Temp Pulse Resp BP Pulse Ox 98.2 F 68 20 179/78 97 05/17/18 07:29 05/17/18 07:29 05/17/18 07:29 05/17/18 09:58 05/17/18 07:29 Plan Activity: up only with assistance Weight Bearing Status: Non-Weight Bearing Diet: regular Follow up with: PRIMARY CARE, [Primary Care Provider] - 3-5 Days Prescriptions: Aspirin EC [Aspirin Enteric Coated TAB] 81 mg PO QDAY #30 tablet.
[2018-05-17 17:03] VITALS: BP 117/61
== END 2018-05-17 18:31 | DRG 56 ==
LOC: ED 09:28 → 4A 15:51
PROVIDERS: ADMIT Internal Medicine; ATTEND Internal Medicine
DX: G30.0 Alzheimer's disease with early onset (principal); G93.41 Metabolic encephalopathy; E11.649 Type 2 diabetes mellitus with hypoglycemia without coma; I10 Essential (primary) hypertension; I25.10 Atherosclerotic heart disease of native coronary artery without angina pectoris; E78.5 Hyperlipidemia, unspecified; M19.90 Unspecified osteoarthritis, unspecified site; J45.909 Unspecified asthma, uncomplicated; K21.9 Gastro-esophageal reflux disease without esophagitis; F02.80 Dementia in other diseases classified elsewhere, unspecified severity, without behavioral disturbance, psychotic disturbance, mood disturbance, and anxiety; Z83.3 Family history of diabetes mellitus; Z82.49 Family history of ischemic heart disease and other diseases of the circulatory system; Z88.6 Allergy status to analgesic agent; Z79.899 Other long term (current) drug therapy; I25.2 Old myocardial infarction; Z95.5 Presence of coronary angioplasty implant and graft; Z90.710 Acquired absence of both cervix and uterus
CPT/HCPCS: 36415; 70450; 70544; 70551; 71045; 71275; 80053; 81001; 82805; 82962; 84439; 84443; 84484; 85025; 85379; 87040; 93005; 93010; 93306; 93880; 93970; G0378; A9270-GY; J1644; J1815; J1956; Q9967

== ENCOUNTER 2018-08-24 21:30 | Emergency (ER) | payer MEDICARE ==
--- NOTE | 2018-08-24 21:55 | Emergency Department Report ---
ED Head Trauma HPI - General Chief complaint: Head Injury Stated complaint: BUMPED HER HEAD Time Seen by Provider: 08/24/18 21:35 Source: EMS Mode of arrival: Stretcher Limitations: Altered Mental Status - History of Present Illness Initial comments: Mrs. Garcia is an 83 yo female who presents from [facility] who presents with head injury. According to staff members, Mrs. Garcia walked into a large metal pole in the room. She then received ultram for headache. Mrs. Garcia has not provided any further history. Mr. Walter shipmanson at the bedside received the same report from the retirement facility. [facility] facility staff member contacted him. She is ambulatory. According to his report she walked into a metal pole. As a precaution, she was sent to the emergency department. Prior to recent placement at [facility] 1 month ago, family members cared for Mrs. Garcia at home. However dementia symptoms of confusion and memory loss became more severe over the past year. According to SNF record and electronic medical record she has history of encephalopathy, aphasia, CVA, hemiplegia/hemiparesis, coronary artery disease, dementia, dyslipidemia, diabetes mellitus, atraumatic physical debility, GERD, hypertension, generalized muscle weakness, diverticulitis, anemia. Complaint: head injury -: Sudden, This evening Mechanism of Injury: other (blunt trauma) Location: frontal Loss of Consciousness: no Place: other ([facility]) Severity: mild Other Injuries: none Associated Symptoms: denies other symptoms - Related Data Previous Rx's Medication Instructions Recorded Last Taken Type AtorvaSTATin [Lipitor] 20 mg PO QHS #30 tablet 04/18/18 05/13/18 22:00 Rx ISOSORBIDE MONOnitrate [Imdur ER] 60 mg PO QDAY #30 tablet 04/18/18 05/14/18 10:00 Rx Lisinopril [Zestril TAB] 40 mg PO QDAY #30 tablet 04/18/18 05/14/18 10:00 Rx Aspirin EC 81 mg PO QDAY #30 05/17/18 Unknown Rx Atenolol [Tenormin] 50 mg PO QDAY tablet 05/17/18 Unknown Rx Allergies/Adverse reactions: Allergies Allergy/AdvReac Type Severity Reaction Status Date / Time aspirin Allergy Hives Verified 04/30/17 11:07 codeine Allergy Itching Verified 08/24/18 21:44 ED Review of Systems ROS: Stated complaint: BUMPED HER HEAD Other details as noted in HPI Comment: Unobtainable due to pts medical conditions (dementia) ED Past Medical Hx - Past Medical History Previous Medical History?: Yes Hx Hypertension: Yes Hx Heart Attack/AMI: Yes Hx Congestive Heart Failure: No Hx Diabetes: Yes Hx Deep Vein Thrombosis: No Hx Pulmonary Embolism: No Hx GERD: Yes Hx Liver Disease: No Hx Renal Disease: No Hx Sickle Cell Disease: No Hx Arthritis: Yes Hx Kidney Stones: No Hx Asthma: Yes Hx COPD: No Hx Tuberculosis: No Hx Dementia: Yes Hx HIV: No Additional medical history: has had transfusions in the past, Gi bleed - Surgical History Hx Coronary Stent: Yes Hx Open Heart Surgery: No Hx Pacemaker: No Hx Internal Defibrillator: No Hx Cholecystectomy: No Hx Appendectomy: No Hx Breast Surgery: No Additional Surgical History: hysterectomy, bilateral knee surgery, - Social History Smoking Status: Never Smoker Substance Use Type: None - Medications Home Medications: Home Medications Medication Instructions Recorded Confirmed Last Taken Type AtorvaSTATin [Lipitor] 20 mg PO QHS #30 tablet 04/18/18 05/14/18 05/13/18 22:00 Rx ISOSORBIDE MONOnitrate [Imdur ER] 60 mg PO QDAY #30 tablet 04/18/18 05/14/18 05/14/18 10:00 Rx Lisinopril [Zestril TAB] 40 mg PO QDAY #30 tablet 04/18/18 05/14/18 05/14/18 10:00 Rx Aspirin EC 81 mg PO QDAY #30 tablet. 05/17/18 Unknown Rx Atenolol [Tenormin] 50 mg PO QDAY tablet 05/17/18 Unknown Rx ED Physical Exam - General Limitations: Altered Mental Status General appearance: alert, in no apparent distress, other (arousable but nonverbal) - Head Head exam: Present: atraumatic, normocephalic - Eye Eye exam: Present: PERRL - ENT ENT exam: Present: mucous membranes moist - Neck Neck exam: Present: normal inspection, full ROM - Respiratory Respiratory exam: Present: respiratory distress. Absent: wheezes, rales, rhonchi - Cardiovascular Cardiovascular Exam: Present: regular rate, normal rhythm, normal heart sounds - GI/Abdominal GI/Abdominal exam: Present: soft. Absent: distended, tenderness, guarding, rebound - Psychiatric Psychiatric exam: Present: flat affect - Skin Skin exam: Present: warm, dry, intact, normal color ED Course Vital Signs 08/24/18 21:44 Temperature 98.3 F Pulse Rate 59 L Respiratory 13 Rate Blood Pressure 227/89 Blood Pressure 227/89 [Left] O2 Sat by Pulse 99 Oximetry - Radiology Data Radiology results: report reviewed, image reviewed CT head without acute traumatic injury - Medical Decision Making Mrs. Garcia presents with closed head injury, CT head without acute process. Elevated blood pressure noted. She is being monitored skilled facility. Blood pressure will be monitored at [facility]. son stated that she's had elevated blood pressure. Upon discharge she was awake and alert. She asked for medication for stomach pain. Critical care attestation.: If time is entered above; I have spent that time in minutes in the direct care of this critically ill patient, excluding procedure time. ED Disposition Clinical Impression: Closed head injury, Hypertensive urgency Disposition: DC/TX-70 ANOTHER TYPE HLTHCARE Is pt being admited?: Yes Does the pt Need Aspirin: No Condition: Stable Instructions: Minor Head Injury (ED)
[2018-08-24] MEDS ORDERED: TYLENOL PO ONE (22:32)
[2018-08-24] MEDS ORDERED: ZESTRIL PO ONE (22:32)
--- NOTE | 2018-08-24 22:58 | Cat Scan Report ---
PROCEDURE: CT head without contrast. TECHNIQUE: Computerized tomography of the head was performed without contrast material. CT DOSE LENGTH PRODUCT: 805.4 mGycm HISTORY: Head trauma. COMPARISONS: CT head 04/12/2018. Dictation not available. FINDINGS: The ventricles are normal in size. There is mild evidence of chronic ischemic white matter disease. T here is some focal encephalomalacia within the right parietal lobe and the right temporal lobe. There is some calcification within the area of encephalomalacia in the right temporal lobe. There is an ol d lacunar infarct in the left basal ganglia. There are no signs of acute infarction. There are no mas s lesions. There is no intracranial hemorrhage. The calvarium appears intact. The mastoid air cells a nd paranasal sinuses are clear as far as visualized. IMPRESSION: Chronic ischemic changes as described. No interval change. No evidence of intracranial h emorrhage. This document is electronically signed by Shailesh Murphy MD., August 24 2018 10:56:11 PM ET
[2018-08-25 00:33] VITALS: BP 198/91
== END 2018-08-25 00:10 | disposition other institution (70) ==
LOC: ED 21:30
DX: S09.90XA Unspecified injury of head, initial encounter (principal); I16.0 Hypertensive urgency; I10 Essential (primary) hypertension; E11.9 Type 2 diabetes mellitus without complications; K21.9 Gastro-esophageal reflux disease without esophagitis; J45.909 Unspecified asthma, uncomplicated; E78.5 Hyperlipidemia, unspecified; Z90.710 Acquired absence of both cervix and uterus; Z88.6 Allergy status to analgesic agent; Z88.5 Allergy status to narcotic agent; Z86.2 Personal history of diseases of the blood and blood-forming organs and certain disorders involving the immune mechanism; W21.89XA Striking against or struck by other sports equipment, initial encounter; Y93.01 Activity, walking, marching and hiking; Y92.128 Other place in nursing home as the place of occurrence of the external cause; Y99.8 Other external cause status
CPT/HCPCS: 70450; 99284

== ENCOUNTER 2018-08-26 10:37 | Emergency (ER) | payer MEDICARE, OTHER ==
--- NOTE | 2018-08-26 11:23 | Emergency Department Report ---
ED Altered Mental Status HPI - General Chief Complaint: Altered Mental Status Stated Complaint: AMS Time Seen by Provider: 08/26/18 11:15 Source: EMS Mode of arrival: Ambulatory Limitations: No Limitations - History of Present Illness Initial Comments: 83-year-old female with history of dementia, CVA, encephalopathy presents to ED with altered mental status per longterm staff. Patient was seen in this ER on yesterday after walking into a pole and bumping her head. Workup yesterday revealed CT head without any acute abnormalities. Currently the patient smiles, states "Oh, I'm feeling pretty good." Patient able to state her name. When asked her age patient states, "Oh, I think I'm eigty something. I was born in 1936." half-way contacted, states pt would not eat breakfast this morning, would not get up and walk around, more confused than usual. States pt was also tachycardic w/ BP 100/50. Normal vital here in ED w/ slightly elevated BP MD Complaint: altered mental status -: This morning Severity: mild Consistency of Symptoms: constant Context: unknown Associated Symptoms: denies: chest pain, headaches, nausea/vomiting, shortness of breath, diarrhea - Related Data Previous Rx's Medication Instructions Recorded Last Taken Type AtorvaSTATin [Lipitor] 20 mg PO QHS #30 tablet 04/18/18 05/13/18 22:00 Rx ISOSORBIDE MONOnitrate [Imdur ER] 60 mg PO QDAY #30 tablet 04/18/18 05/14/18 10:00 Rx Lisinopril [Zestril TAB] 40 mg PO QDAY #30 tablet 04/18/18 05/14/18 10:00 Rx Aspirin EC 81 mg PO QDAY #30 tablet. 05/17/18 Unknown Rx Atenolol [Tenormin] 50 mg PO QDAY tablet 05/17/18 Unknown Rx Allergies Allergy/AdvReac Type Severity Reaction Status Date / Time aspirin Allergy Hives Verified 04/30/17 11:07 codeine Allergy Itching Verified 08/24/18 21:44 ED Review of Systems ROS: Stated complaint: AMS Other details as noted in HPI Comment: Unobtainable due to pts medical conditions (dementia) ED Past Medical Hx - Past Medical History Previous Medical History?: Yes Hx Hypertension: Yes Hx CVA: Yes Hx Heart Attack/AMI: Yes Hx Congestive Heart Failure: No Hx Diabetes: Yes Hx Deep Vein Thrombosis: No Hx Pulmonary Embolism: No Hx GERD: Yes Hx Liver Disease: No Hx Renal Disease: No Hx of Cancer: No Hx Sickle Cell Disease: No Hx Arthritis: Yes Hx Seizures: No Hx Kidney Stones: No Hx Psychiatric Treatment: No Hx Asthma: Yes Hx COPD: No Hx Tuberculosis: No Hx Dementia: Yes Hx HIV: No Additional medical history: has had transfusions in the past, Gi bleed - Surgical History Past Surgical History?: Yes Hx Coronary Stent: Yes Hx Open Heart Surgery: No Hx Pacemaker: No Hx Internal Defibrillator: No Hx Cholecystectomy: No Hx Appendectomy: No Hx Breast Surgery: No Additional Surgical History: hysterectomy, bilateral knee surgery, - Social History Smoking Status: Never Smoker Substance Use Type: None - Medications Home Medications: Home Medications Medication Instructions Recorded Confirmed Last Taken Type AtorvaSTATin [Lipitor] 20 mg PO QHS #30 tablet 04/18/18 05/14/18 05/13/18 22:00 Rx ISOSORBIDE MONOnitrate [Imdur ER] 60 mg PO QDAY #30 tablet 04/18/18 05/14/18 05/14/18 10:00 Rx Lisinopril [Zestril TAB] 40 mg PO QDAY #30 tablet 04/18/18 05/14/18 05/14/18 10:00 Rx Aspirin EC 81 mg PO QDAY #30 tablet. 05/17/18 Unknown Rx Atenolol [Tenormin] 50 mg PO QDAY tablet 05/17/18 Unknown Rx ED Physical Exam - General Limitations: No Limitations General appearance: alert, in no apparent distress - Head Head exam: Present: atraumatic, normocephalic - Eye Eye exam: Present: normal appearance - ENT ENT exam: Present: mucous membranes moist - Neck Neck exam: Present: normal inspection - Respiratory Respiratory exam: Present: normal lung sounds bilaterally. Absent: respiratory distress - Cardiovascular Cardiovascular Exam: Present: regular rate, normal rhythm - GI/Abdominal GI/Abdominal exam: Present: soft. Absent: distended, tenderness - Extremities Exam Extremities exam: Present: normal inspection - Neurological Exam Neurological exam: Present: alert. Absent: oriented X3 (oriented to self, knows date of ) - Psychiatric Psychiatric exam: Present: normal affect, normal mood - Skin Skin exam: Present: warm, dry, intact, normal color ED Course Vital Signs 08/26/18 08/26/18 08/26/18 10:48 10:56 11:00 Temperature 99.3 F Pulse Rate 79 75 72 Respiratory 20 21 21 Rate Blood Pressure 157/57 151/58 Blood Pressure 157/57 [Right] O2 Sat by Pulse 97 99 98 Oximetry 08/26/18 08/26/18 08/26/18 11:15 11:30 11:45 Temperature Pulse Rate 70 67 71 Respiratory 20 19 19 Rate Blood Pressure 161/62 152/63 152/63 Blood Pressure [Right] O2 Sat by Pulse 98 98 98 Oximetry 08/26/18 08/26/18 08/26/18 12:09 12:15 12:30 Temperature Pulse Rate 71 66 Respiratory 21 19 Rate Blood Pressure 152/63 152/63 143/57 Blood Pressure [Right] O2 Sat by Pulse 99 98 100 Oximetry 08/26/18 08/26/18 08/26/18 12:45 13:00 13:15 Temperature Pulse Rate 65 63 63 Respiratory 19 19 18 Rate Blood Pressure 141/55 132/50 142/56 Blood Pressure [Right] O2 Sat by Pulse 99 98 99 Oximetry 08/26/18 08/26/18 08/26/18 13:31 13:45 14:00 Temperature Pulse Rate 82 71 64 Respiratory 15 22 18 Rate Blood Pressure 142/56 155/67 131/53 Blood Pressure [Right] O2 Sat by Pulse 99 98 98 Oximetry 08/26/18 08/26/18 08/26/18 14:15 14:30 14:45 Temperature Pulse Rate 63 65 70 Respiratory 18 18 16 Rate Blood Pressure 121/52 129/54 129/54 Blood Pressure [Right] O2 Sat by Pulse 98 98 100 Oximetry 08/26/18 08/26/18 08/26/18 15:00 15:15 15:30 Temperature Pulse Rate 65 67 64 Respiratory 19 20 17 Rate Blood Pressure 160/57 151/58 146/56 Blood Pressure [Right] O2 Sat by Pulse 99 100 99 Oximetry 08/26/18 08/26/18 08/26/18 15:45 15:58 16:00 Temperature 98.4 F Pulse Rate 64 63 Respiratory 19 18 Rate Blood Pressure 142/57 149/53 Blood Pressure [Right] O2 Sat by Pulse 98 98 Oximetry 08/26/18 08/26/18 08/26/18 16:15 16:31 16:45 Temperature Pulse Rate 69 67 63 Respiratory 17 20 19 Rate Blood Pressure 149/53 165/66 165/66 Blood Pressure [Right] O2 Sat by Pulse 100 99 100 Oximetry 08/26/18 08/26/18 16:58 17:16 Temperature 99.5 F Pulse Rate Respiratory 20 Rate Blood Pressure Blood Pressure [Right] O2 Sat by Pulse 99 Oximetry - Lab Data Result diagrams: 08/26/18 11:57 08/26/18 11:57 Lab Results 08/26/18 08/26/18 08/26/18 Range/Units 11:05 11:57 11:57 WBC 9.3 (4.5-11.0) K/mm3 RBC 3.75 (3.65-5.03) M/mm3 Hgb 12.9 (10.1-14.3) gm/dl Hct 37.4 (30.3-42.9) % MCV 100 H (79-97) fl MCH 34 H (28-32) pg MCHC 34 (30-34) % RDW 12.5 L (13.2-15.2) % Plt Count 177 (140-440) K/mm3 Lymph % (Auto) 8.0 L (13.4-35.0) % [place] % (Auto) 8.5 H (0.0-7.3) % Eos % (Auto) 0.0 (0.0-4.3) % Baso % (Auto) 0.2 (0.0-1.8) % Lymph # 0.7 L (1.2-5.4) K/mm3 [place] # 0.8 (0.0-0.8) K/mm3 Eos # 0.0 (0.0-0.4) K/mm3 Baso # 0.0 (0.0-0.1) K/mm3 Seg Neutrophils % 83.3 H (40.0-70.0) % Seg Neutrophils # 7.7 (1.8-7.7) K/mm3 Sodium 138 (137-145) mmol/L Potassium 4.3 (3.6-5.0) mmol/L Chloride 104.1 (98-107) mmol/L Carbon Dioxide 20 L (22-30) mmol/L Anion Gap 18 mmol/L BUN 22 H (7-17) mg/dL Creatinine 0.9 (0.7-1.2) mg/dL Estimated GFR > 60 ml/min BUN/Creatinine Ratio 24 % Glucose 237 H (65-100) mg/dL POC Glucose 220 H (70-105) Calcium 9.4 (8.4-10.2) mg/dL Total Bilirubin 0.80 (0.1-1.2) mg/dL AST 13 (5-40) units/L ALT 9 (7-56) units/L Alkaline Phosphatase 132 H (35-129) units/L Total Protein 6.6 (6.3-8.2) g/dL Albumin 3.1 L (3.9-5) g/dL Albumin/Globulin Ratio 0.9 % Urine Color (Yellow) Urine Turbidity (Clear) Urine pH (5.0-7.0) Ur Specific [place] (1.003-1.030) Urine Protein (Negative) mg/dL Urine Glucose (UA) (Negative) mg/dL Urine Ketones (Negative) mg/dL Urine Blood (Negative) Urine Nitrite (Negative) Urine Bilirubin (Negative) Urine Urobilinogen (<2.0) mg/dL Ur Leukocyte Esterase (Negative) Urine WBC (Auto) (0.0-6.0) /HPF Urine RBC (Auto) (0.0-6.0) /HPF U Epithel Cells (Auto) (0-13.0) /HPF Urine Mucus /HPF // Range/Units Unknown WBC (4.5-11.0) K/mm3 RBC (3.65-5.03) M/mm3 Hgb (10.1-14.3) gm/dl Hct (30.3-42.9) % MCV (79-97) fl MCH (28-32) pg MCHC (30-34) % RDW (13.2-15.2) % Plt Count (140-440) K/mm3 Lymph % (Auto) (13.4-35.0) % [place] % (Auto) (0.0-7.3) % Eos % (Auto) (0.0-4.3) % Baso % (Auto) (0.0-1.8) % Lymph # (1.2-5.4) K/mm3 [place] # (0.0-0.8) K/mm3 Eos # (0.0-0.4) K/mm3 Baso # (0.0-0.1) K/mm3 Seg Neutrophils % (40.0-70.0) % Seg Neutrophils # (1.8-7.7) K/mm3 Sodium (137-145) mmol/L Potassium (3.6-5.0) mmol/L Chloride (98-107) mmol/L Carbon Dioxide (22-30) mmol/L Anion Gap mmol/L BUN (7-17) mg/dL Creatinine (0.7-1.2) mg/dL Estimated GFR ml/min BUN/Creatinine Ratio % Glucose (65-100) mg/dL POC Glucose (70-105) Calcium (8.4-10.2) mg/dL Total Bilirubin (0.1-1.2) mg/dL AST (5-40) units/L ALT (7-56) units/L Alkaline Phosphatase (35-129) units/L Total Protein (6.3-8.2) g/dL Albumin (3.9-5) g/dL Albumin/Globulin Ratio % Urine Color Yellow (Yellow) Urine Turbidity Slightly-cloudy (Clear) Urine pH 5.0 (5.0-7.0) Ur Specific [place] 1.021 (1.003-1.030) Urine Protein 100 mg/dl (Negative) mg/dL Urine Glucose (UA) 50 (Negative) mg/dL Urine Ketones 20 (Negative) mg/dL Urine Blood Neg (Negative) Urine Nitrite Neg (Negative) Urine Bilirubin Neg (Negative) Urine Urobilinogen 4.0 (<2.0) mg/dL Ur Leukocyte Esterase Neg (Negative) Urine WBC (Auto) 4.0 (0.0-6.0) /HPF Urine RBC (Auto) 1.0 (0.0-6.0) /HPF U Epithel Cells (Auto) 2.0 (0-13.0) /HPF Urine Mucus 3+ /HPF - Radiology Data Radiology results: report reviewed, image reviewed - Medical Decision Making - vitals normal - pt ate meal tray here in ED - able to answer some questions appropriately, howver, pt does have hx of dementia - labs normal, UA normal, CXR normal - pt had normal CT Head on yesterdays visit - it is likely that symptoms at longterm are due to exacerbation of pt's dementia; she seems to be improved compared to longterm report; will discharge back to longterm as pt does not meet inpt criteria at this time - Differential Diagnosis UTI, PNA, dementia, metabolic abnormality Critical care attestation.: If time is entered above; I have spent that time in minutes in the direct care of this critically ill patient, excluding procedure time. ED Disposition Clinical Impression: Dementia Disposition: DC-01 TO HOME OR SELFCARE Is pt being admited?: No Condition: Stable Instructions: Dementia (ED) Referrals: PRIMARY CARE, [Primary Care Provider] - 3-5 Days Time of Disposition: 14:57
[2018-08-26 12:09] LABS: Basophils % (Auto) 0.2 % (0.0-1.8); Hematocrit 37.4 % (30.3-42.9); Hemoglobin 12.9 gm/dl (10.1-14.3); Lymphocytes # (Auto) 0.7 K/mm3 (1.2-5.4); Mean Corpuscular HGB Conc 34 % (30-34); Mean Corpuscular Volume 100 fl (79-97); Monocytes # (Auto) 0.8 K/mm3 (0.0-0.8); Monocytes % (Auto) 8.5 % (0.0-7.3); Platelet Count 177 K/mm3 (140-440); Red Blood Count 3.75 M/mm3 (3.65-5.03); Red Cell Distribution Width 12.5 % (13.2-15.2)
[2018-08-26 12:32] LABS: Bilirubin,Urine NEG (Negative); Blood,Urine NEG (Negative); Color,Urine Yellow (Yellow); Mucus,Urine 3+ /HPF
[2018-08-26 12:35] LABS: Alanine Aminotransferase 9 units/L (7-56); Albumin 3.1 g/dL (3.9-5); BUN/Creatinine Ratio 24; Blood Urea Nitrogen 22 mg/dL (7-17); Calcium 9.4 mg/dL (8.4-10.2); Hemolysis Index 18
--- NOTE | 2018-08-26 14:40 | XRay Report ---
PORTABLE CHEST INDICATION: Altered mental status. COMPARISON: 05/13/2018 FINDINGS: Portable, frontal chest radiograph again demonstrates limited inspiration with mild exaggerated cardiomediastinal silhouette. Aortic knob calcifications. Grossly clear lungs. Few extrinsic artifacts. Stable bones with few degenerative changes. CONCLUSION: No acute chest process or significant interval change, as described. Thank you for the opportunity to participate in this patient's care.
[2018-08-26 16:58] VITALS: BP 165/66
== END 2018-08-26 17:39 | disposition home or self-care (01) ==
LOC: ED 10:37
DX: F03.90 Unspecified dementia, unspecified severity, without behavioral disturbance, psychotic disturbance, mood disturbance, and anxiety (principal); I11.0 Hypertensive heart disease with heart failure; I50.9 Heart failure, unspecified; I25.2 Old myocardial infarction; E11.9 Type 2 diabetes mellitus without complications; K21.9 Gastro-esophageal reflux disease without esophagitis; M19.90 Unspecified osteoarthritis, unspecified site; J45.909 Unspecified asthma, uncomplicated; Z95.5 Presence of coronary angioplasty implant and graft; Z90.710 Acquired absence of both cervix and uterus; Z88.6 Allergy status to analgesic agent
CPT/HCPCS: 36415; 71045; 80053; 81001; 82962; 85025

== ENCOUNTER 2018-09-19 14:12 | Inpatient (IN) | payer MEDICARE ==
[2018-09-19 15:23] LABS: Basophils % (Auto) 0.7 % (0.0-1.8); Eosinophils % (Auto) 1.1 % (0.0-4.3); Hemoglobin 9.6 gm/dl (10.1-14.3); Lymphocytes # (Auto) 1.6 K/mm3 (1.2-5.4); Lymphocytes % (Auto) 41.9 % (13.4-35.0); Mean Corpuscular HGB Conc 34 % (30-34); Mean Corpuscular Volume 99 fl (79-97); Monocytes # (Auto) 0.6 K/mm3 (0.0-0.8); Monocytes % (Auto) 14.9 % (0.0-7.3); Platelet Count 156 K/mm3 (140-440); Red Blood Count 2.85 M/mm3 (3.65-5.03); Red Cell Distribution Width 12.7 % (13.2-15.2)
[2018-09-19 15:42] LABS: BUN/Creatinine Ratio 26; Blood Urea Nitrogen 23 mg/dL (7-17); Calcium 8.6 mg/dL (8.4-10.2); Hemolysis Index 20
[2018-09-19] MEDS ORDERED: TYLENOL PO ONE (15:52)
[2018-09-19] MEDS ORDERED: NACL 0.9% 500 ML 500 ML IV ONE (15:52)
--- NOTE | 2018-09-19 15:53 | Emergency Department Report ---
ED General Adult HPI - General Chief complaint: GI Bleed Stated complaint: GI BLEED Time Seen by Provider: 09/19/18 15:34 Source: patient, EMS (ems notes not available at time of chart dictation), RN notes reviewed Mode of arrival: Stretcher Limitations: Physical Limitation, Other (patient is demented. Patient is a poor historian.) - History of Present Illness Initial comments: Primary care Dr.: Dr Carlson This is an 83-year-old female. I have evaluated this patient in the past. Past medical history includes stroke, dementia, known history of diabetes, heart disease, chronic confusion, history of endoscopy performed in 2014, demonstrated diverticulosis on the left side with polyps. The patient is sent today from a local skilled nursing for evaluation of GI bleed. Patient is not sure when her GI bleeding started. She indicates that she is having lower abdominal pain. She denies additional complaints. The patient is a poor historian. Patient not able to describe exacerbating or relieving factors of her symptoms, radiation, or qualitative nature of her symptoms. She points to her lower abdominal region, indicating that it's painful, but otherwise, not indicating any additional symptoms. Patient makes no complaint of vomiting blood. Current closed paperwork does not clarify what her bleeding started. -: unknown Radiation: other Quality: other Consistency: other Improves with: other Worsens with: other - Related Data Home Medications Medication Instructions Recorded Confirmed Last Taken Acetaminophen [Tylenol] 650 mg PO Q4HR PRN 09/19/18 09/19/18 Unknown Cetirizine HCl [Zyrtec 10mg tab] 10 mg PO QDAY PRN 09/19/18 09/19/18 Unknown Donepezil [Aricept] 5 mg PO HS 09/19/18 09/19/18 Unknown Insulin Aspart [Novolog] See Protocol SUB-Q BID 09/19/18 09/19/18 Unknown Lisinopril [Zestril TAB] 40 mg PO QDAY 09/19/18 09/19/18 Unknown Meloxicam [Mobic] 15 mg PO QDAY 09/19/18 09/19/18 Unknown cloNIDine [Catapres] 0.1 mg PO Q12H 09/19/18 09/19/18 Unknown traMADol [Ultram] 50 mg PO Q8HR PRN 09/19/18 09/19/18 Unknown Previous Rx's Medication Instructions Recorded Last Taken Type AtorvaSTATin [Lipitor] 20 mg PO QHS #30 tablet 04/18/18 05/13/18 22:00 Rx ISOSORBIDE MONOnitrate [Imdur ER] 60 mg PO QDAY #30 tablet 04/18/18 05/14/18 10:00 Rx Aspirin EC 81 mg PO QDAY #30 tablet. 05/17/18 Unknown Rx Atenolol [Tenormin] 50 mg PO QDAY tablet 05/17/18 Unknown Rx Allergies Allergy/AdvReac Type Severity Reaction Status Date / Time aspirin Allergy Hives Verified 09/19/18 14:52 codeine Allergy Itching Verified 09/19/18 14:52 ED Review of Systems ROS: Stated complaint: GI BLEED Other details as noted in HPI Comment: Unobtainable due to pts medical conditions Gastrointestinal: abdominal pain, hematochezia Neurological: confusion ED Past Medical Hx - Past Medical History Previous Medical History?: Yes Hx Hypertension: Yes Hx CVA: Yes Hx Heart Attack/AMI: Yes Hx Congestive Heart Failure: No Hx Diabetes: Yes Hx Deep Vein Thrombosis: No Hx Pulmonary Embolism: No Hx GERD: Yes Hx Liver Disease: No Hx Renal Disease: No Hx Sickle Cell Disease: No Hx Arthritis: Yes Hx Seizures: No Hx Kidney Stones: No Hx Psychiatric Treatment: No Hx Asthma: Yes Hx COPD: No Hx Tuberculosis: No Hx Dementia: Yes Hx HIV: No Additional medical history: has had transfusions in the past, Gi bleed - Surgical History Past Surgical History?: Yes Hx Coronary Stent: Yes Hx Open Heart Surgery: No Hx Pacemaker: No Hx Internal Defibrillator: No Hx Cholecystectomy: No Hx Appendectomy: No Hx Breast Surgery: No Additional Surgical History: hysterectomy, bilateral knee surgery, - Social History Smoking Status: Never Smoker - Medications Home Medications: Home Medications Medication Instructions Recorded Confirmed Last Taken Type AtorvaSTATin [Lipitor] 20 mg PO QHS #30 tablet 04/18/18 09/19/18 05/13/18 22:00 Rx ISOSORBIDE MONOnitrate [Imdur ER] 60 mg PO QDAY #30 tablet 04/18/18 09/19/18 05/14/18 10:00 Rx Aspirin EC 81 mg PO QDAY #30 tablet. 05/17/18 09/19/18 Unknown Rx Atenolol [Tenormin] 50 mg PO QDAY tablet 05/17/18 09/19/18 Unknown Rx Acetaminophen [Tylenol] 650 mg PO Q4HR PRN 09/19/18 09/19/18 Unknown History Cetirizine HCl [Zyrtec 10mg tab] 10 mg PO QDAY PRN 09/19/18 09/19/18 Unknown History Donepezil [Aricept] 5 mg PO HS 09/19/18 09/19/18 Unknown History Insulin Aspart [Novolog] See Protocol SUB-Q BID 09/19/18 09/19/18 Unknown History Lisinopril [Zestril TAB] 40 mg PO QDAY 09/19/18 09/19/18 Unknown History Meloxicam [Mobic] 15 mg PO QDAY 09/19/18 09/19/18 Unknown History cloNIDine [Catapres] 0.1 mg PO Q12H 09/19/18 09/19/18 Unknown History traMADol [Ultram] 50 mg PO Q8HR PRN 09/19/18 09/19/18 Unknown History ED Physical Exam - General General appearance: alert, in no apparent distress, other (confusion) - Head Head exam: Present: atraumatic, normocephalic - Eye Eye exam: Present: normal appearance - ENT ENT exam: Present: normal exam, normal orophraynx, normal external ear exam - Neck Neck exam: Present: normal inspection, full ROM. Absent: tenderness, meningismus - Respiratory Respiratory exam: Present: normal lung sounds bilaterally. Absent: respiratory distress, wheezes, rales, rhonchi, stridor, chest wall tenderness - Cardiovascular Cardiovascular Exam: Present: regular rate, normal rhythm, normal heart sounds. Absent: bradycardia, tachycardia, irregular rhythm, systolic murmur, diastolic murmur, rubs, gallop - GI/Abdominal GI/Abdominal exam: Present: soft, tenderness. Absent: distended, guarding, rebound, rigid, pulsatile mass - Rectal Rectal exam: Present: normal inspection, heme (+) stool, bloody stool, other (chaperoned by software installation engineer Aicha Crowley) - Extremities Exam Extremities exam: Present: normal inspection, full ROM, other (2+ pulses noted in the bilateral upper, lower extremities. Compartments soft. No long bony tenderness. The pelvis is stable.). Absent: calf tenderness - Back Exam Back exam: Present: normal inspection, full ROM. Absent: tenderness, CVA tenderness (R), CVA tenderness (L), paraspinal tenderness, vertebral tenderness - Neurological Exam Neurological exam: Present: alert, other (Extraocular movements intact. Tongue midline. No facial droop. Facial sensation intact to light touch in the V1, V2, V3 distribution bilaterally. 5 and 5 strength in 4 extremities.. Sensation is intact to light touch in 4 extremities.) - Psychiatric Psychiatric exam: Present: anxious - Skin Skin exam: Present: warm, dry, intact, normal color. Absent: rash ED Course Vital Signs 09/19/18 09/19/18 09/19/18 14:48 15:38 16:00 Temperature 98.7 F Pulse Rate 77 74 Respiratory 16 18 17 Rate Blood Pressure 115/70 Blood Pressure 134/69 [Right] O2 Sat by Pulse 98 99 Oximetry 09/19/18 09/19/18 09/19/18 16:02 16:52 18:00 Temperature Pulse Rate 74 72 78 Respiratory 17 18 18 Rate Blood Pressure Blood Pressure 131/65 112/68 152/60 [Right] O2 Sat by Pulse 99 100 99 Oximetry 09/19/18 09/19/18 18:38 19:23 Temperature 97.4 F L Pulse Rate 74 71 Respiratory 17 18 Rate Blood Pressure 102/53 Blood Pressure 139/65 [Right] O2 Sat by Pulse 99 99 Oximetry - Reevaluation(s) Reevaluation #1: 09/19/18 16:51 Dr Carlson to admit Reevaluation #2: 09/19/18 19:05 ct angio negative ED Medical Decision Making - Lab Data Result diagrams: 09/20/18 06:11 09/19/18 15:11 Vital Signs 09/19/18 09/19/18 09/19/18 14:48 15:38 16:02 Temperature 98.7 F Pulse Rate 77 74 74 Respiratory 16 18 17 Rate Blood Pressure 115/70 Blood Pressure 134/69 131/65 [Right] O2 Sat by Pulse 98 99 99 Oximetry Lab Results 09/19/18 09/19/18 09/19/18 Range/Units 15:11 15:11 16:01 WBC 3.7 L (4.5-11.0) K/mm3 RBC 2.85 L (3.65-5.03) M/mm3 Hgb 9.6 L (10.1-14.3) gm/dl Hct 28.0 L (30.3-42.9) % MCV 99 H (79-97) fl MCH 34 H (28-32) pg MCHC 34 (30-34) % RDW 12.7 L (13.2-15.2) % Plt Count 156 (140-440) K/mm3 Lymph % (Auto) 41.9 H (13.4-35.0) % [place] % (Auto) 14.9 H (0.0-7.3) % Eos % (Auto) 1.1 (0.0-4.3) % Baso % (Auto) 0.7 (0.0-1.8) % Lymph # 1.6 (1.2-5.4) K/mm3 [place] # 0.6 (0.0-0.8) K/mm3 Eos # 0.0 (0.0-0.4) K/mm3 Baso # 0.0 (0.0-0.1) K/mm3 Seg Neutrophils % 41.4 (40.0-70.0) % Seg Neutrophils # 1.5 L (1.8-7.7) K/mm3 Sodium 140 (137-145) mmol/L Potassium 4.6 (3.6-5.0) mmol/L Chloride 107.9 H (98-107) mmol/L Carbon Dioxide 24 (22-30) mmol/L Anion Gap 13 mmol/L BUN 23 H (7-17) mg/dL Creatinine 0.9 (0.7-1.2) mg/dL Estimated GFR > 60 ml/min BUN/Creatinine Ratio 26 % Glucose 191 H (65-100) mg/dL Calcium 8.6 (8.4-10.2) mg/dL Urine Color Alessia (Yellow) Urine Turbidity Slightly-cloudy (Clear) Urine pH 5.0 (5.0-7.0) Ur Specific [place] 1.031 H (1.003-1.030) Urine Protein 30 mg/dl (Negative) mg/dL Urine Glucose (UA) Neg (Negative) mg/dL Urine Ketones Neg (Negative) mg/dL Urine Blood Neg (Negative) Urine Nitrite Neg (Negative) Urine Bilirubin Sm (Negative) Urine Ictotest Negative (Negative) Urine Urobilinogen 4.0 (<2.0) mg/dL Ur Leukocyte Esterase Neg (Negative) Urine WBC (Auto) 1.0 (0.0-6.0) /HPF Urine RBC (Auto) < 1.0 (0.0-6.0) /HPF U Epithel Cells (Auto) 1.0 (0-13.0) /HPF Hyaline Casts 13 /LPF Urine Mucus 2+ /HPF - EKG Data -: EKG Interpreted by Nd EKG shows normal: sinus rhythm Rate: normal - EKG Data 09/19/18 16:39 This is a normal sinus rhythm, 63 bpm, normal axis, QTC within normal limits, NV interval prolonged, atrial enlargement, T wave abnormalities, this is an abnormal EKG, the EKG is not consistent with ST elevation myocardial infarction. - Radiology Data Radiology results: pending, report reviewed, image reviewed Print Report Referring Physician: JASWINDER ISIDRO Patient Name: KAR EDWARDS Date of : 1935 Sex: Female Report Date: 2018-09-19 Report Status: [place] [address] Cat Scan Report Signed Patient: KAR EDWARDS MR#: [id number] : 1935 Acct:[id number] Age/Sex: 83 / F ADM Date: 09/19/18 Loc: 4A A460-1 Attending D r: VI CARLSON DO Ordering Physician: JASWINDER ISIDRO MD Date of Service: 09/19/18 Procedure(s): CT angio abdomen pelvis Accession Number(s): [id number] cc: JASWINDER ISIDRO MD CT angio abdomen pelvis INDICATION: abd pain gi bleed. TECHNIQUE: All CT scans at this location are performed using CT dose reduction for ALARA by means of automated exposure control. COMPARISON: None available. FINDINGS: Precontrast localizer images were obtained, followed by axial and 3-dimensional reconstruction images, performed at an independent workstation by the hyperbaric technologist after IV bolus contrast injection. Abdominal aorta, celiac axis, SMA, bilateral renal arteries and LEELA are all widely patent. Common, internal and external iliac arteries are normal in caliber and also widely patent. No significant atherosclerosis. Peripheral visceral arteries also appear normal. There is no CT evidence of bowel ischemia. Incidentally noted is moderately extensive descending colon and sigmoid diverticulosis but no evidence of diverticulitis. IMPRESSION: 1. Negative study. Visceral vascular supply appears normal. Distal colon diverticulosis but no evidence of bowel ischemia. Signer Name: Néstor Gomez MD Signed: 09/19/2018 6:57 PM Workstation Name: [id number] Transcribed By: TM Dictated By: Néstor Gomez MD Electronically Authenticated By: Néstor Gomez MD Signed Date/Time: 09/19/18 7700 - Medical Decision Making Differential diagnosis, including not limited to: Hemorrhoids, angiodysplasia, diverticulosis, diverticulitis Assessment and plan: 83-year-old female with lower abdominal tenderness, dark red blood per rectum, hemoglobin today 9.6, hematocrit today, 37.4, decreased when compared to prior laboratory studies from 08/26/2018 (12.9/37.4, respectively.) Discussed with gastroenterology, Dr. Bills, he agrees to follow in consultation, and recommends CT angiogram of abdomen and pelvis, if possible. If not possible, he is agreeable to CT scan of the abdomen and pelvis with IV contrast. Patient will be given IV fluids and pain medication. Her primary care doctor is paged to arrange admission. She is otherwise afebrile with reassuring vital signs and does not appear to be in any significant distress at this time. Critical care attestation.: If time is entered above; I have spent that time in minutes in the direct care of this critically ill patient, excluding procedure time. ED Disposition Clinical Impression: LGI bleed Dementia Qualifiers: Alzheimer's disease onset: unspecified onset Dementia behavioral disturbance: without behavioral disturbance Disposition: DC-09 OP ADMIT IP TO THIS HOSP Is pt being admited?: Yes Condition: Fair
[2018-09-19 16:31] LABS: Bilirubin,Urine SM (Negative); Blood,Urine NEG (Negative); Color,Urine Amber (Yellow); Hyaline Casts,Urine 13 /LPF; Mucus,Urine 2+ /HPF; RBC,Urine < 1.0 /HPF (0.0-6.0)
[2018-09-19 16:34] LABS: Ictotest,Urine Negative (Negative)
[2018-09-19 16:59] LABS: INR 1.05 (0.87-1.13)
[2018-09-19 17:00] LABS: Partial Thromboplastin Time 26.5 Sec. (24.2-36.6)
--- NOTE | 2018-09-19 19:01 | Cat Scan Report ---
CT angio abdomen pelvis INDICATION: abd pain gi bleed. TECHNIQUE: All CT scans at this location are performed using CT dose reduction for ALARA by means of automated e xposure control. COMPARISON: None available. FINDINGS: Precontrast localizer images were obtained, followed by axial and 3-dimensional reconstruction images , performed at an independent workstation by the mechanical engineering technologist after IV bolus contrast injection. Abdominal aorta, celiac axis, SMA, bilateral renal arteries and LEELA are all widely patent. Common, in ternal and external iliac arteries are normal in caliber and also widely patent. No significant ather osclerosis. Peripheral visceral arteries also appear normal. There is no CT evidence of bowel ischemi a. Incidentally noted is moderately extensive descending colon and sigmoid diverticulosis but no evid ence of diverticulitis. IMPRESSION: 1. Negative study. Visceral vascular supply appears normal. Distal colon diverticulosis but no eviden ce of bowel ischemia. Signer Name: Néstor Gomez MD Signed: 09/19/2018 6:57 PM Workstation Name: [id number]
--- NOTE | 2018-09-19 19:31 | History and Physical Report ---
History of Present Illness Date of examination: 09/19/18 Date of admission: 09/19/18 16:51 Chief complaint: Generalized weakness., GI bleed. History of present illness: [place] with [place], as [place].She was noticed to have bright red blood per rectum, and some abominal pain. She had a scope couple of years ago, by DR SPENCER, revealing polyps, and hgb was about 11, now 9+ IT appears ,this is lower GI bleed.Gi has already been consulted, set for a scope tomorrow.Will hydrate, and if after scope, no significant findings, will d/c back to [place]. Past History Past Medical History: anemia (residece of the [place] hypertension, hyperlipidemia Medications and Allergies Allergies Allergy/AdvReac Type Severity Reaction Status Date / Time aspirin Allergy Hives Verified 09/19/18 14:52 codeine Allergy Itching Verified 09/19/18 14:52 Home Medications Medication Instructions Recorded Confirmed Last Taken Type AtorvaSTATin [Lipitor] 20 mg PO QHS #30 tablet 04/18/18 09/19/18 05/13/18 22:00 Rx ISOSORBIDE MONOnitrate [Imdur ER] 60 mg PO QDAY #30 tablet 04/18/18 09/19/18 05/14/18 10:00 Rx Aspirin EC 81 mg PO QDAY #30 tablet. 05/17/18 09/19/18 Unknown Rx Atenolol [Tenormin] 50 mg PO QDAY tablet 05/17/18 09/19/18 Unknown Rx Acetaminophen [Tylenol] 650 mg PO Q4HR PRN 09/19/18 09/19/18 Unknown History Cetirizine HCl [Zyrtec 10mg tab] 10 mg PO QDAY PRN 09/19/18 09/19/18 Unknown History Donepezil [Aricept] 5 mg PO HS 09/19/18 09/19/18 Unknown History Insulin Aspart [Novolog] See Protocol SUB-Q BID 09/19/18 09/19/18 Unknown History Lisinopril [Zestril TAB] 40 mg PO QDAY 09/19/18 09/19/18 Unknown History Meloxicam [Mobic] 15 mg PO QDAY 09/19/18 09/19/18 Unknown History cloNIDine [Catapres] 0.1 mg PO Q12H 09/19/18 09/19/18 Unknown History traMADol [Ultram] 50 mg PO Q8HR PRN 09/19/18 09/19/18 Unknown History Review of Systems Constitutional: weakness Breasts: deferred Rectal: bleeding Exam - Constitutional Vitals: Temp Pulse Resp BP Pulse Ox 98.7 F 74 17 139/65 99 09/19/18 15:38 09/19/18 18:38 09/19/18 18:38 09/19/18 18:38 09/19/18 18:38 General appearance: Present: no acute distress, well-nourished - EENT Eyes: Present: PERRL ENT: hearing intact, clear oral mucosa - Neck Neck: Present: supple, normal ROM - Respiratory Respiratory effort: normal Respiratory: bilateral: CTA - Cardiovascular Heart Sounds: Present: S1 & S2. Absent: rub, click - Extremities Extremities: pulses symmetrical, No edema Peripheral Pulses: within normal limits - Abdominal General gastrointestinal: Present: soft, non-tender, non-distended, normal bowel sounds Female genitourinary: Present: deferred - Rectal Rectal Exam: deferred - Integumentary Integumentary: Present: clear, warm, dry - Musculoskeletal Musculoskeletal: gait normal, strength equal bilaterally - Psychiatric Psychiatric: appropriate mood/affect, intact judgment & insight - Neurologic Neurologic: CNII-XII intact, moves all extremities Results - Labs CBC & Chem 7: 09/19/18 15:11 09/19/18 15:11 Labs: Abnormal lab results 09/19/18 09/19/18 09/19/18 Range/Units 15:11 15:11 16:01 WBC 3.7 L (4.5-11.0) K/mm3 RBC 2.85 L (3.65-5.03) M/mm3 Hgb 9.6 L (10.1-14.3) gm/dl Hct 28.0 L (30.3-42.9) % MCV 99 H (79-97) fl MCH 34 H (28-32) pg RDW 12.7 L (13.2-15.2) % Lymph % (Auto) 41.9 H (13.4-35.0) % [place] % (Auto) 14.9 H (0.0-7.3) % Seg Neutrophils # 1.5 L (1.8-7.7) K/mm3 Chloride 107.9 H (98-107) mmol/L BUN 23 H (7-17) mg/dL Glucose 191 H (65-100) mg/dL Ur Specific [place] 1.031 H (1.003-1.030) Assessment and Plan - Patient Problems (1) LGI bleed Current Visit: Yes Status: Acute Plan to address problem: Follow GI , monitor labs. (2) Dementia Current Visit: Yes Status: Chronic Qualifiers: Alzheimer's disease onset: unspecified onset Dementia behavioral disturbance: without behavioral disturbance Plan to address problem: supportive care. (3) Abdominal pain Current Visit: Yes Status: Acute Plan to address problem: Await scope. (4) Anemia Current Visit: Yes Status: Acute Plan to address problem: Monitor labs PRN.
[2018-09-19] MEDS ORDERED: NON-FORMULARY (Cetirizine Hcl [Zyrtec 10mg Tab] 10 MG) PO PRN (19:43)
[2018-09-19] MEDS ORDERED: TYLENOL PO PRN (19:43)
[2018-09-19] MEDS ORDERED: ULTRAM PO PRN (19:43)
[2018-09-19] MEDS: ARICEPT PO SCH (21:25)
[2018-09-19] MEDS: D5/0.45NS 1,000 ML IV SCH (21:26)
[2018-09-19] MEDS: CATAPRES PO SCH (21:27)
[2018-09-19 22:01] LABS: Basophils % (Auto) 0.8 % (0.0-1.8); Eosinophils % (Auto) 0.4 % (0.0-4.3); Hematocrit 23.6 % (30.3-42.9); Hemoglobin 8.1 gm/dl (10.1-14.3); Lymphocytes # (Auto) 1.2 K/mm3 (1.2-5.4); Lymphocytes % (Auto) 26.3 % (13.4-35.0); Mean Corpuscular HGB Conc 34 % (30-34); Mean Corpuscular Volume 99 fl (79-97); Monocytes # (Auto) 0.4 K/mm3 (0.0-0.8); Monocytes % (Auto) 9.9 % (0.0-7.3); Platelet Count 144 K/mm3 (140-440); Red Blood Count 2.39 M/mm3 (3.65-5.03); Red Cell Distribution Width 12.5 % (13.2-15.2)
[2018-09-20 06:55] LABS: Basophils % (Auto) 0.3 % (0.0-1.8); Eosinophils % (Auto) 0.2 % (0.0-4.3); Hematocrit 22.4 % (30.3-42.9); Hemoglobin 7.6 gm/dl (10.1-14.3); Lymphocytes # (Auto) 1.8 K/mm3 (1.2-5.4); Lymphocytes % (Auto) 35.1 % (13.4-35.0); Mean Corpuscular HGB Conc 34 % (30-34); Mean Corpuscular Volume 99 fl (79-97); Monocytes # (Auto) 0.6 K/mm3 (0.0-0.8); Monocytes % (Auto) 11.4 % (0.0-7.3); Platelet Count 141 K/mm3 (140-440); Red Blood Count 2.27 M/mm3 (3.65-5.03); Red Cell Distribution Width 12.7 % (13.2-15.2)
[2018-09-20] MEDS ORDERED: NACL 0.9% 500 ML 500 ML IV NR (08:00)
[2018-09-20] MEDS: MOBIC PO SCH (09:03)
[2018-09-20] MEDS: CATAPRES PO SCH ×2 (09:04→23:13)
[2018-09-20] MEDS: TENORMIN PO SCH (09:04)
[2018-09-20] MEDS: ZESTRIL PO SCH (09:04)
[2018-09-20] MEDS: IMDUR PO SCH (09:05)
[2018-09-20] MEDS: CLARITIN PO PRN (09:15)
[2018-09-20] MEDS ORDERED: NON-FORMULARY (Meloxicam [Mobic] 15 MG) PO SCH (10:00)
--- NOTE | 2018-09-20 11:40 | Gastroenterology Consultation ---
<CARLO FALL - Last Filed: 09/20/18 12:13> History of Present Illness - Reason for Consult Consult date: 09/20/18 [facility] Requesting physician: JASWINDER ISIDRO - History of Present Illness Patient is a 83 y/o female detention resident who presented to ED for evaluation of rectal bleeding to which GI has been consulted. Patient is previo usly known to our service and has a hx of prior GI bleeding thought to be diverticular in nature requiring multiple hospitalizations. Last colonoscopy was on 12/23/[address] Mak which showed diverticulosis and old blood. Last EGD was also last year for dysphagia on 05/03/[address] Cherry which showed a mild peptic stricture at GE junction (dilated), otherwise normal. Nursing reports continued episodes of rectal bleeding this am with bright red blood and clots. No hematemesis or melena. CTA upon admission yesterday did not show active bleeding. Admits to some lower abd discomfort. No vomiting. Home medication list shows Mobic and ASA (was previously on Plavix for CAD, however it is not currently on home medication list). Past History Past Medical History: other (CAD/PA, anemia, diabetes, hypertension, hyperlipidemia, diverticular bleeding,stroke, dementia ) Past Surgical History: Other (hysterectomy, bilateral knee surgery, PTCA) Social history: other (detention resident). denies: smoking, alcohol abuse Medications and Allergies Allergies Allergy/AdvReac Type Severity Reaction Status Date / Time aspirin Allergy Hives Verified 09/19/18 14:52 codeine Allergy Itching Verified 09/19/18 14:52 Home Medications Medication Instructions Recorded Confirmed Last Taken Type AtorvaSTATin [Lipitor] 20 mg PO QHS #30 tablet 04/18/18 09/19/18 05/13/18 22:00 Rx ISOSORBIDE MONOnitrate [Imdur ER] 60 mg PO QDAY #30 tablet 04/18/18 09/19/18 05/14/18 10:00 Rx Aspirin EC 81 mg PO QDAY #30 tablet. 05/17/18 09/19/18 Unknown Rx Atenolol [Tenormin] 50 mg PO QDAY tablet 05/17/18 09/19/18 Unknown Rx Acetaminophen [Tylenol] 650 mg PO Q4HR PRN 09/19/18 09/19/18 Unknown History Cetirizine HCl [Zyrtec 10mg tab] 10 mg PO QDAY PRN 09/19/18 09/19/18 Unknown History Donepezil [Aricept] 5 mg PO HS 09/19/18 09/19/18 Unknown History Insulin Aspart [Novolog] See Protocol SUB-Q BID 09/19/18 09/19/18 Unknown History Lisinopril [Zestril TAB] 40 mg PO QDAY 09/19/18 09/19/18 Unknown History Meloxicam [Mobic] 15 mg PO QDAY 09/19/18 09/19/18 Unknown History cloNIDine [Catapres] 0.1 mg PO Q12H 09/19/18 09/19/18 Unknown History traMADol [Ultram] 50 mg PO Q8HR PRN 09/19/18 09/19/18 Unknown History Active Meds: Active Medications Acetaminophen (Tylenol) 650 mg PO Q4HR PRN PRN Reason: Pain Atenolol (Tenormin) 50 mg PO QDAY [facility] Last Admin: 09/20/18 09:04 Dose: 50 mg Documented by: Atorvastatin Calcium (Lipitor) 20 mg PO QHS [facility] Last Admin: 09/19/18 21:25 Dose: 20 mg Documented by: Clonidine HCl (Catapres) 0.1 mg PO Q12H [facility] Last Admin: 09/20/18 09:04 Dose: 0.1 mg Documented by: Donepezil HCl (Aricept) 5 mg PO [facility] Last Admin: 09/19/18 21:25 Dose: 5 mg Documented by: Dextrose/Sodium Chloride (D5/0.45ns) 1,000 mls @ 75 mls/hr IV DIRECT [facility] Last Admin: 09/19/18 21:26 Dose: 75 mls/hr Documented by: Sodium Chloride (Nacl 0.9% 500 Ml) 500 mls @ 0 mls/hr IV ONCE NR Stop: 09/20/18 16:00 Isosorbide Mononitrate (Imdur) 60 mg PO QDAY [facility] Last Admin: 09/20/18 09:05 Dose: 60 mg Documented by: Lisinopril (Zestril) 40 mg PO QDAY [facility] Last Admin: 09/20/18 09:04 Dose: 40 mg Documented by: Loratadine (Claritin) 10 mg PO DAILY PRN PRN Reason: Allergy Symptoms Last Admin: 09/20/18 09:15 Dose: 10 mg Documented by: Meloxicam (Mobic) 15 mg PO QDAY [facility] Last Admin: 09/20/18 09:03 Dose: 15 mg Documented by: Tramadol HCl (Ultram) 50 mg PO Q8HR PRN PRN Reason: Pain medications reviewed/updated as required Review of Systems - Review of Systems Gastrointestinal: abdominal pain, hematochezia Exam - Constitutional Vital Signs: Temp Pulse Resp BP Pulse Ox 98.0 F 93 H 16 143/75 99 09/20/18 07:57 09/20/18 09:05 09/20/18 07:57 09/20/18 09:05 09/20/18 07:57 General appearance: no acute distress - Respiratory Respiratory effort: normal - Cardiovascular Rhythm: regular - Gastrointestinal General gastrointestinal: Present: soft, non-distended, normal bowel sounds - Labs CBC & Chem 7: 09/20/18 06:11 09/19/18 15:11 Lab Results: Laboratory Results - last 24 hr 09/19/18 09/19/18 09/19/18 15:11 15:11 16:01 WBC 3.7 L RBC 2.85 L Hgb 9.6 L Hct 28.0 L MCV 99 H MCH 34 H MCHC 34 RDW 12.7 L Plt Count 156 Lymph % (Auto) 41.9 H [place] % (Auto) 14.9 H Eos % (Auto) 1.1 Baso % (Auto) 0.7 Lymph # 1.6 [place] # 0.6 Eos # 0.0 Baso # 0.0 Seg Neutrophils % 41.4 Seg Neutrophils # 1.5 L PT INR APTT Sodium 140 Potassium 4.6 Chloride 107.9 H Carbon Dioxide 24 Anion Gap 13 BUN 23 H Creatinine 0.9 Estimated GFR > 60 BUN/Creatinine Ratio 26 Glucose 191 H POC Glucose Calcium 8.6 Magnesium Total Creatine Kinase Urine Color Al[place]ia Urine Turbidity Slightly-cloudy Urine pH 5.0 Ur Specific [place] 1.031 H Urine Protein 30 mg/dl Urine Glucose (UA) Neg Urine Ketones Neg Urine Blood Neg Urine Nitrite Neg Urine Bilirubin Sm Urine Ictotest Negative Urine Urobilinogen 4.0 Ur Leukocyte Esterase Neg Urine WBC (Auto) 1.0 Urine RBC (Auto) < 1.0 U Epithel Cells (Auto) 1.0 Hyaline Casts 13 Urine Mucus 2+ Blood Type Antibody Screen Crossmatch 09/19/18 09/19/18 09/19/18 16:34 16:34 16:40 WBC RBC Hgb Hct MCV MCH MCHC RDW Plt Count Lymph % (Auto) [place] % (Auto) Eos % (Auto) Baso % (Auto) Lymph # [place] # Eos # Baso # Seg Neutrophils % Seg Neutrophils # PT 13.4 INR 1.05 APTT 26.5 Sodium Potassium Chloride Carbon Dioxide Anion Gap BUN Creatinine Estimated GFR BUN/Creatinine Ratio Glucose POC Glucose Calcium Magnesium 2.00 Total Creatine Kinase 33 Urine Color Urine Turbidity Urine pH Ur Specific [place] Urine Protein Urine Glucose (UA) Urine Ketones Urine Blood Urine Nitrite Urine Bilirubin Urine Ictotest Urine Urobilinogen Ur Leukocyte Esterase Urine WBC (Auto) Urine RBC (Auto) U Epithel Cells (Auto) Hyaline Casts Urine Mucus Blood Type O POSITIVE Antibody Screen Negative Crossmatch 09/19/18 09/19/18 09/20/18 21:01 21:10 00:22 WBC 4.5 RBC 2.39 L Hgb 8.1 L Hct 23.6 L MCV 99 H MCH 34 H MCHC 34 RDW 12.5 L Plt Count 144 Lymph % (Auto) 26.3 [place] % (Auto) 9.9 H Eos % (Auto) 0.4 Baso % (Auto) 0.8 Lymph # 1.2 [place] # 0.4 Eos # 0.0 Baso # 0.0 Seg Neutrophils % 62.6 Seg Neutrophils # 2.8 PT INR APTT Sodium Potassium Chloride Carbon Dioxide Anion Gap BUN Creatinine Estimated GFR BUN/Creatinine Ratio Glucose POC Glucose 229 H Calcium Magnesium Total Creatine Kinase Urine Color Urine Turbidity Urine pH Ur Specific [place] Urine Protein Urine Glucose (UA) Urine Ketones Urine Blood Urine Nitrite Urine Bilirubin Urine Ictotest Urine Urobilinogen Ur Leukocyte Esterase Urine WBC (Auto) Urine RBC (Auto) U Epithel Cells (Auto) Hyaline Casts Urine Mucus Blood Type O POSITIVE Antibody Screen Negative Crossmatch See Detail 09/20/18 09/20/18 09/20/18 06:11 06:15 08:17 WBC 5.2 RBC 2.27 L Hgb 7.6 L Hct 22.4 L MCV 99 H MCH 34 H MCHC 34 RDW 12.7 L Plt Count 141 Lymph % (Auto) 35.1 H [place] % (Auto) 11.4 H Eos % (Auto) 0.2 Baso % (Auto) 0.3 Lymph # 1.8 [place] # 0.6 Eos # 0.0 Baso # 0.0 Seg Neutrophils % 53.0 Seg Neutrophils # 2.7 PT INR APTT Sodium Potassium Chloride Carbon Dioxide Anion Gap BUN Creatinine Estimated GFR BUN/Creatinine Ratio Glucose POC Glucose 246 H 253 H Calcium Magnesium Total Creatine Kinase Urine Color Urine Turbidity Urine pH Ur Specific [place] Urine Protein Urine Glucose (UA) Urine Ketones Urine Blood Urine Nitrite Urine Bilirubin Urine Ictotest Urine Urobilinogen Ur Leukocyte Esterase Urine WBC (Auto) Urine RBC (Auto) U Epithel Cells (Auto) Hyaline Casts Urine Mucus Blood Type Antibody Screen Crossmatch Assessment and Plan 1.GI bleed -INR 1.05 -BUN 23 -H/H 7.6/22.4-trending down -continue to monitor H/H and transfuse as needed -hold blood thinning medications -currently HD stable -nursing reports continued episodes of rectal bleeding this am with bright red blood and clots -CTA negative for active bleeding -last colonoscopy on 12/23/[address] Mak which showed diverticulosis and old blood -Last EGD for dysphagia on 05/03/[address] 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 (dilated), otherwise normal -etiology-likely diverticular in nature given history, however upper source not completely excluded given NSAID use (elevated BUN) -will schedule for colonoscopy +/- EGD tomorrow -okay for clear liquids today then NPO after MN -start on PPI -continue supportive care -will follow <SLICK DESOUZA - Last Filed: 09/20/18 13:26> Medications and Allergies Active Meds: Active Medications Acetaminophen (Tylenol) 650 mg PO Q4HR PRN PRN Reason: Pain Atenolol (Tenormin) 50 mg PO QDAY [facility] Last Admin: 09/20/18 09:04 Dose: 50 mg Documented by: Atorvastatin Calcium (Lipitor) 20 mg PO QHS [facility] Last Admin: 09/19/18 21:25 Dose: 20 mg Documented by: Clonidine HCl (Catapres) 0.1 mg PO Q12H [facility] Last Admin: 09/20/18 09:04 Dose: 0.1 mg Documented by: Donepezil HCl (Aricept) 5 mg PO HS [facility] Last Admin: 09/19/18 21:25 Dose: 5 mg Documented by: Dextrose/Sodium Chloride (D5/0.45ns) 1,000 mls @ 75 mls/hr IV DIRECT [facility] Last Admin: 09/19/18 21:26 Dose: 75 mls/hr Documented by: Sodium Chloride (Nacl 0.9% 500 Ml) 500 mls @ 0 mls/hr IV ONCE NR Stop: 09/20/18 16:00 Isosorbide Mononitrate (Imdur) 60 mg PO QDAY [facility] Last Admin: 09/20/18 09:05 Dose: 60 mg Documented by: Lisinopril (Zestril) 40 mg PO QDAY [facility] Last Admin: 09/20/18 09:04 Dose: 40 mg Documented by: Loratadine (Claritin) 10 mg PO DAILY PRN PRN Reason: Allergy Symptoms Last Admin: 09/20/18 09:15 Dose: 10 mg Documented by: Meloxicam (Mobic) 15 mg PO QDAY [facility] Last Admin: 09/20/18 09:03 Dose: 15 mg Documented by: Pantoprazole Sodium (Protonix) 40 mg IV BID [facility] Last Admin: 09/20/18 12:28 Dose: 40 mg Documented by: Tramadol HCl (Ultram) 50 mg PO Q8HR PRN PRN Reason: Pain Exam - Constitutional Vital Signs: Temp Pulse Resp BP Pulse Ox 98.6 F 74 16 102/47 98 09/20/18 11:46 09/20/18 11:46 09/20/18 11:46 09/20/18 11:46 09/20/18 11:46 - Labs CBC & Chem 7: 09/20/18 06:11 09/19/18 15:11 Lab Results: Laboratory Results - last 24 hr 09/19/18 09/19/18 09/19/18 15:11 15:11 16:01 WBC 3.7 L RBC 2.85 L Hgb 9.6 L Hct 28.0 L MCV 99 H MCH 34 H MCHC 34 RDW 12.7 L Plt Count 156 Lymph % (Auto) 41.9 H [place] % (Auto) 14.9 H Eos % (Auto) 1.1 Baso % (Auto) 0.7 Lymph # 1.6 [place] # 0.6 Eos # 0.0 Baso # 0.0 Seg Neutrophils % 41.4 Seg Neutrophils # 1.5 L PT INR APTT Sodium 140 Potassium 4.6 Chloride 107.9 H Carbon Dioxide 24 Anion Gap 13 BUN 23 H Creatinine 0.9 Estimated GFR > 60 BUN/Creatinine Ratio 26 Glucose 191 H POC Glucose Calcium 8.6 Magnesium Total Creatine Kinase Urine Color Alessia Urine Turbidity Slightly-cloudy Urine pH 5.0 Ur Specific [place] 1.031 H Urine Protein 30 mg/dl Urine Glucose (UA) Neg Urine Ketones Neg Urine Blood Neg Urine Nitrite Neg Urine Bilirubin Sm Urine Ictotest Negative Urine Urobilinogen 4.0 Ur Leukocyte Esterase Neg Urine WBC (Auto) 1.0 Urine RBC (Auto) < 1.0 U Epithel Cells (Auto) 1.0 Hyaline Casts 13 Urine Mucus 2+ Blood Type Antibody Screen Crossmatch 09/19/18 09/19/18 09/19/18 16:34 16:34 16:40 WBC RBC Hgb Hct MCV MCH MCHC RDW Plt Count Lymph % (Auto) [place] % (Auto) Eos % (Auto) Baso % (Auto) Lymph # [place] # Eos # Baso # Seg Neutrophils % Seg Neutrophils # PT 13.4 INR 1.05 APTT 26.5 Sodium Potassium Chloride Carbon Dioxide Anion Gap BUN Creatinine Estimated GFR BUN/Creatinine Ratio Glucose POC Glucose Calcium Magnesium 2.00 Total Creatine Kinase 33 Urine Color Urine Turbidity Urine pH Ur Specific [place] Urine Protein Urine Glucose (UA) Urine Ketones Urine Blood Urine Nitrite Urine Bilirubin Urine Ictotest Urine Urobilinogen Ur Leukocyte Esterase Urine WBC (Auto) Urine RBC (Auto) U Epithel Cells (Auto) Hyaline Casts Urine Mucus Blood Type O POSITIVE Antibody Screen Negative Crossmatch 09/19/18 09/19/18 09/20/18 21:01 21:10 00:22 WBC 4.5 RBC 2.39 L Hgb 8.1 L Hct 23.6 L MCV 99 H MCH 34 H MCHC 34 RDW 12.5 L Plt Count 144 Lymph % (Auto) 26.3 [place] % (Auto) 9.9 H Eos % (Auto) 0.4 Baso % (Auto) 0.8 Lymph # 1.2 [place] # 0.4 Eos # 0.0 Baso # 0.0 Seg Neutrophils % 62.6 Seg Neutrophils # 2.8 PT INR APTT Sodium Potassium Chloride Carbon Dioxide Anion Gap BUN Creatinine Estimated GFR BUN/Creatinine Ratio Glucose POC Glucose 229 H Calcium Magnesium Total Creatine Kinase Urine Color Urine Turbidity Urine pH Ur Specific [place] Urine Protein Urine Glucose (UA) Urine Ketones Urine Blood Urine Nitrite Urine Bilirubin Urine Ictotest Urine Urobilinogen Ur Leukocyte Esterase Urine WBC (Auto) Urine RBC (Auto) U Epithel Cells (Auto) Hyaline Casts Urine Mucus Blood Type O POSITIVE Antibody Screen Negative Crossmatch See Detail 09/20/18 09/20/18 09/20/18 06:11 06:15 08:17 WBC 5.2 RBC 2.27 L Hgb 7.6 L Hct 22.4 L MCV 99 H MCH 34 H MCHC 34 RDW 12.7 L Plt Count 141 Lymph % (Auto) 35.1 H [place] % (Auto) 11.4 H Eos % (Auto) 0.2 Baso % (Auto) 0.3 Lymph # 1.8 [place] # 0.6 Eos # 0.0 Baso # 0.0 Seg Neutrophils % 53.0 Seg Neutrophils # 2.7 PT INR APTT Sodium Potassium Chloride Carbon Dioxide Anion Gap BUN Creatinine Estimated GFR BUN/Creatinine Ratio Glucose POC Glucose 246 H 253 H Calcium Magnesium Total Creatine Kinase Urine Color Urine Turbidity Urine pH Ur Specific [place] Urine Protein Urine Glucose (UA) Urine Ketones Urine Blood Urine Nitrite Urine Bilirubin Urine Ictotest Urine Urobilinogen Ur Leukocyte Esterase Urine WBC (Auto) Urine RBC (Auto) U Epithel Cells (Auto) Hyaline Casts Urine Mucus Blood Type Antibody Screen Crossmatch 09/20/18 11:52 WBC RBC Hgb Hct MCV MCH MCHC RDW Plt Count Lymph % (Auto) [place] % (Auto) Eos % (Auto) Baso % (Auto) Lymph # [place] # Eos # Baso # Seg Neutrophils % Seg Neutrophils # PT INR APTT Sodium Potassium Chloride Carbon Dioxide Anion Gap BUN Creatinine Estimated GFR BUN/Creatinine Ratio Glucose POC Glucose 278 H Calcium Magnesium Total Creatine Kinase Urine Color Urine Turbidity Urine pH Ur Specific [place] Urine Protein Urine Glucose (UA) Urine Ketones Urine Blood Urine Nitrite Urine Bilirubin Urine Ictotest Urine Urobilinogen Ur Leukocyte Esterase Urine WBC (Auto) Urine RBC (Auto) U Epithel Cells (Auto) Hyaline Casts Urine Mucus Blood Type Antibody Screen Crossmatch Assessment and Plan Patient seen and examined. Agree with note above. Pt still with h/o diverticular bleeding; presents with GI bleeding with neg CTA; suspect diverticular bleed but with on going bleeding today and decreasing H/H, will plan for colonoscopy +/- EGD tomorrow.
[2018-09-20] MEDS ORDERED: GOLYTELY PO ONE (11:41)
[2018-09-20] MEDS: PROTONIX IV SCH ×2 (12:28→23:12)
[2018-09-20] MEDS ORDERED: BENADRYL IV ONE (14:39)
--- NOTE | 2018-09-20 20:01 | Progress Note ---
Assessment and Plan - Patient Problems (1) LGI bleed Current Visit: Yes Status: Acute Plan to address problem: Follow GI , monitor labs. notes reviewed from GI. (2) Dementia Current Visit: Yes Status: Chronic Qualifiers: Alzheimer's disease onset: unspecified onset Dementia behavioral disturbance: without behavioral disturbance Plan to address problem: supportive care. (3) Abdominal pain Current Visit: Yes Status: Acute Plan to address problem: Await scope. (4) Anemia Current Visit: Yes Status: Acute Plan to address problem: Monitor labs PRN. Transfusion, as necessary. Subjective Date of service: 09/20/18 Principal diagnosis: acute GI bleed. Interval history: Patient seen/examined, resting in bed, labs/ notes/consults reviewed. Patient scheduled for a scope tomorrow.I have given some transfusion, and will do H/h q6hrs. Objective - Constitutional Vitals: Vital Signs - 12hr 09/20/18 09/20/18 09/20/18 09:04 09:05 11:46 Temperature 98.6 F Pulse Rate 93 H 93 H 74 Respiratory 16 Rate Blood Pressure 143/75 143/75 102/47 O2 Sat by Pulse 98 Oximetry 09/20/18 09/20/18 16:31 17:32 Temperature 98.8 F Pulse Rate 120 H Respiratory 14 Rate Blood Pressure 93/52 94/46 O2 Sat by Pulse 98 Oximetry General appearance: Present: mild distress, well-nourished - EENT Eyes: PERRL, EOM intact ENT: hearing intact, clear oral mucosa Ears: bilateral: normal - Neck Neck: supple, normal ROM - Respiratory Respiratory effort: normal Respiratory: bilateral: CTA - Breasts Breasts: deferred - Cardiovascular Rhythm: regular Heart Sounds: Present: S1 & S2. Absent: gallop, rub Extremities: pulses intact, No edema, normal color, Full ROM - Gastrointestinal General gastrointestinal: Present: soft, non-tender, non-distended, normal bowel sounds Rectal Exam: deferred - Genitourinary Female genitourinary: deferred - Integumentary Integumentary: clear, warm, dry - Musculoskeletal Musculoskeletal: 1, strength equal bilaterally - Neurologic Neurologic: moves all extremities - Psychiatric Psychiatric: appropriate mood/affect - Labs CBC & Chem 7: 09/20/18 06:11 09/19/18 15:11 Labs: Abnormal lab results 09/19/18 09/19/18 09/20/18 Range/Units 21:01 21:10 00:22 RBC 2.39 L (3.65-5.03) M/mm3 Hgb 8.1 L (10.1-14.3) gm/dl Hct 23.6 L (30.3-42.9) % MCV 99 H (79-97) fl MCH 34 H (28-32) pg RDW 12.5 L (13.2-15.2) % Lymph % (Auto) (13.4-35.0) % [place] % (Auto) 9.9 H (0.0-7.3) % POC Glucose 229 H (70-105) Crossmatch See Detail 09/20/18 09/20/18 09/20/18 Range/Units 06:11 06:15 08:17 RBC 2.27 L (3.65-5.03) M/mm3 Hgb 7.6 L (10.1-14.3) gm/dl Hct 22.4 L (30.3-42.9) % MCV 99 H (79-97) fl MCH 34 H (28-32) pg RDW 12.7 L (13.2-15.2) % Lymph % (Auto) 35.1 H (13.4-35.0) % [place] % (Auto) 11.4 H (0.0-7.3) % POC Glucose 246 H 253 H (70-105) Crossmatch 09/20/18 09/20/18 Range/Units 11:52 17:17 RBC (3.65-5.03) M/mm3 Hgb (10.1-14.3) gm/dl Hct (30.3-42.9) % MCV (79-97) fl MCH (28-32) pg RDW (13.2-15.2) % Lymph % (Auto) (13.4-35.0) % [place] % (Auto) (0.0-7.3) % POC Glucose 278 H 241 H (70-105) Crossmatch
[2018-09-20] MEDS: D5/0.45NS 1,000 ML IV SCH (23:13)
[2018-09-20] MEDS: ARICEPT PO SCH (23:14)
--- NOTE | 2018-09-20 23:15 | XRay Report ---
ABDOMEN 1 VIEW(S) INDICATION / CLINICAL INFORMATION: checking tube placement. COMPARISON: None available. FINDINGS: TUBES / LINES: Nasogastric tube tip and side-port are within the stomach. BOWEL GAS PATTERN: No significant abnormality. FREE AIR / EXTRALUMINAL GAS: None seen. ADDITIONAL FINDINGS: No significant additional findings. IMPRESSION: 1. Nasogastric tube tip in the stomach. Signer Name: Nikko Gillespie MD Signed: 09/20/2018 11:10 PM Workstation Name: [facility]
[2018-09-21 02:05] LABS: Hematocrit 32.2 % (30.3-42.9)
[2018-09-21 06:41] LABS: Basophils % (Auto) 0.3 % (0.0-1.8); Hematocrit 31.9 % (30.3-42.9); Lymphocytes # (Auto) 2.1 K/mm3 (1.2-5.4); Lymphocytes % (Auto) 26.4 % (13.4-35.0); Mean Corpuscular HGB Conc 35 % (30-34); Mean Corpuscular Volume 95 fl (79-97); Monocytes % (Auto) 12.4 % (0.0-7.3); Platelet Count 134 K/mm3 (140-440); Red Blood Count 3.35 M/mm3 (3.65-5.03)
[2018-09-21] MEDS ORDERED: DIPRIVAN 10 MG/ML IV ONE ×2 (07:23→10:24)
[2018-09-21] MEDS ORDERED: WATER FOR IRRIG STERILE IR ONE (07:29)
[2018-09-21] MEDS ORDERED: WATER FOR IRRIG STERILE ONE (07:29)
[2018-09-21] MEDS ORDERED: XYLOCAINE MPF 2% ONE (07:30)
[2018-09-21] MEDS: PROTONIX IV SCH ×2 (09:20→21:22)
[2018-09-21] MEDS ORDERED: MORPHINE IM ONE (09:30)
[2018-09-21] MEDS ORDERED: NACL 0.9% 1000 ML 1,000 ML ONE (09:37)
--- NOTE | 2018-09-21 09:57 | Anesthesia Day of Surgery ---
Anesthesia Day of Surgery - Day of Surgery Patient Examined: Yes Patient H&P Reviewed: Yes Patient is NPO: Yes
--- NOTE | 2018-09-21 09:57 | Anesthesia Consultation ---
Anesthesia Consult and Med Hx Date of service: 09/21/18 - Airway Anesthetic Teeth Evaluation: Poor (multiple missing, loose teeth) ROM Head & Neck: Adequate Mental/Hyoid Distance: Adequate Mallampati Class: Class II Intubation Access Assessment: Probably Good - Pre-Operative Health Status ASA Pre-Surgery Classification: ASA3 - Pulmonary Hx Smoking: No Hx Asthma: Yes SOB: Yes (Pulmonary HTN) COPD: No Hx Pneumonia: Yes Hx Sleep Apnea: No - Cardiovascular System Hx Hypertension: Yes Hx Coronary Artery Disease: Yes Hx Heart Attack/AMI: Yes Hx Angina: Yes (neg cardiac enzymes) Hx Percutaneous Transluminal Coronary Angioplasty (PTCA): Yes (2015) Hx Pacemaker: No Hx Internal Defibrillator: No Hx Valvular Heart Disease: No Hx Heart Murmur: No Hx Peripheral Vascular Disease: No - Central Nervous System Hx Neuromuscular Disorder: (AMS) Hx Seizures: No CVA: Yes Hx Back Pain: Yes (R/T FALL) Hx Psychiatric Problems: Yes (dmentioa) - Gastrointestinal Hx Ulcer: No (GI bleed) Hx Gastroesophageal Reflux Disease: Yes (dysphagea, difficulty swallowing) - Endocrine Hx Renal Disease: No Hx End Stage Renal Disease: No Hx Cirrhosis: No Hx Liver Disease: No Hx Insulin Dependent Diabetes: Yes Hx Thyroid Disease: No Hx Hypothyroidism: No Hx Hyperthyroidism: No - Hematic Hx Anemia: Yes (h/o bleeding colon diverticulus) Hx Sickle Cell Disease: No - Other Systems Hx Cancer: No - Additional Comments Anesthesia Medical History Comments: Unable to reach grandson for consents. Due to medical urgency made decision to do 2 physician signatures
--- NOTE | 2018-09-21 11:06 | Operative Report ---
Operative Report Operative Report: Colonoscopy Procedure Note Date of procedure: 09/21/2018 Endoscopist: Micheal Bills Pre-op diagnosis: GI bleeding Post-op diagnosis: Holden diverticulosis, blood throughout the colon Anesthesia: MAC Complications: No immediate complications Estimated blood loss: minimal Procedure: Consent was obtained from 2 physicians as procedure was deemed emergent, and unable to reach patient's family by phone on multiple attempts (patient unable to consent for herself given dementia). The patient was placed in the left lateral decubitus position. The olympus colonoscope was inserted into the patient's rectum under direct vision, and advanced to the cecum and terminal ileum without difficulty. The patient tolerated the procedure well. The views of the mucosa were fair. The quality of prep was fair The patient's vital signs were monitored continuously throughout the procedure. Findings: There were multiple diverticula throughout the colon (holden-diverticulosis, more prominent on right side but multiple tics in the left colon as well). There was fresh blood throughout the colon (including terminal ileum although felt to be refluxed blood from the colon). There was a large blood clot at the hepatic flexure which was unable to be cleared despite irrigation/suctioning. Impression: 1. Holden-diverticulosis with fresh appearing blood throughout the colon. There was a large clot at the hepatic flexure which was unable to be cleared. No obvious other source of bleeding besides tics were identified in the colon. Recommendations: -EGD to rule out upper GI source
--- NOTE | 2018-09-21 11:12 | Operative Report ---
Operative Report Operative Report: Esophagogastroduodenoscopy Procedure Note Date of procedure: 09/21/2018 Endoscopist: Micheal Bills Pre-op diagnosis: GI bleeding Post-op diagnosis: cratered, clean based duodenal bulb ulcer Anesthesia: MAC Complications: No immediate complications Estimated blood loss: None Procedure: Consent was obtained from 2 physicians due to emergent indication and inability to reach patient's family member for consent. The olympus endoscope was inserted into the patient's mouth under direct vision, and advan daniella into the 2nd portion of the duodenum without difficulty. The patient tolerated the procedure well. The views of the mucosa were good. Patient's vital signs were monitored continuously throughout the procedure. Findings: The esophagus appeared normal. Mild gastritis in the stomach, otherwise the stomach appeared normal. There was an ~1 cm ulcer in the posterior wall of the duodenal bulb. The ulcer was cratered but without high risk bleeding stigmata. There was no blood seen in the duodenum. Impression: 1. Clean based duodenal bulb ulcer. No blood was seen during the procedure and there were no high risk bleeding stigmata. Recommendations: -suspect diverticular bleed, although can not definitively rule out brisk upper gi bleeding. However, given lack of high risk bleeding stigmata and with fresh appearing blood in colon, this is most likely diverticular. -discussed with IR to review CTA from admission to evaluate for possible active bleeding signs -will consult surgery to follow -consider repeating bleeding scan if H/H drops or signs of further bleeding
--- NOTE | 2018-09-21 11:42 | Consultation ---
History of Present Illness - Reason for Consult Consult date: 09/21/18 GI bleed - History of Present Illness Patient with a history of stroke, dementia, altered mental status presents with a history of GI bleed from her care facility. Endoscopy and colonoscopy were performed which demonstrates a large amount of clot in the hepatic flexure and fresh blood throughout the colon. Patient had CTA of the abdomen with an area of concern just proximal to the hepatic flexure. Past History Past Medical History: other (CAD/IA, anemia, diabetes, hypertension, hyperlipidemia, diverticular bleeding,stroke, dementia ) Past Surgical History: Other (hysterectomy, bilateral knee surgery, PTCA) Social history: other (intermediate resident). denies: smoking, alcohol abuse Medications and Allergies Allergies Allergy/AdvReac Type Severity Reaction Status Date / Time aspirin Allergy Hives Verified 09/19/18 14:52 codeine Allergy Itching Verified 09/19/18 14:52 Home Medications Medication Instructions Recorded Confirmed Last Taken Type AtorvaSTATin [Lipitor] 20 mg PO QHS #30 tablet 04/18/18 09/19/18 05/13/18 22:00 Rx ISOSORBIDE MONOnitrate [Imdur ER] 60 mg PO QDAY #30 tablet 04/18/18 09/19/18 05/14/18 10:00 Rx Aspirin EC 81 mg PO QDAY #30 tablet. 05/17/18 09/19/18 Unknown Rx Atenolol [Tenormin] 50 mg PO QDAY tablet 05/17/18 09/19/18 Unknown Rx Acetaminophen [Tylenol] 650 mg PO Q4HR PRN 09/19/18 09/19/18 Unknown History Cetirizine HCl [Zyrtec 10mg tab] 10 mg PO QDAY PRN 09/19/18 09/19/18 Unknown His tory Donepezil [Aricept] 5 mg PO HS 09/19/18 09/19/18 Unknown History Insulin Aspart [Novolog] See Protocol SUB-Q BID 09/19/18 09/19/18 Unknown History Lisinopril [Zestril TAB] 40 mg PO QDAY 09/19/18 09/19/18 Unknown History Meloxicam [Mobic] 15 mg PO QDAY 09/19/18 09/19/18 Unknown History cloNIDine [Catapres] 0.1 mg PO Q12H 09/19/18 09/19/18 Unknown History traMADol [Ultram] 50 mg PO Q8HR PRN 09/19/18 09/19/18 Unknown History Active Meds: Active Medications Acetaminophen (Tylenol) 650 mg PO Q4HR PRN PRN Reason: Pain Atenolol (Tenormin) 50 mg PO QDAY [facility] Last Admin: 09/20/18 09:04 Dose: 50 mg Documented by: Atorvastatin Calcium (Lipitor) 20 mg PO QHS [facility] Last Admin: 09/20/18 23:14 Dose: Not Given Documented by: Clonidine HCl (Catapres) 0.1 mg PO Q12H [facility] Last Admin: 09/20/18 23:13 Dose: Not Given Documented by: Donepezil HCl (Aricept) 5 mg PO HS [facility] Last Admin: 09/20/18 23:14 Dose: Not Given Documented by: Dextrose/Sodium Chloride (D5/0.45ns) 1,000 mls @ 75 mls/hr IV DIRECT [facility] Last Admin: 09/20/18 23:13 Dose: 75 mls/hr Documented by: Isosorbide Mononitrate (Imdur) 60 mg PO QDAY [facility] Last Admin: 09/20/18 09:05 Dose: 60 mg Documented by: Lisinopril (Zestril) 40 mg PO QDAY [facility] Last Admin: 09/20/18 09:04 Dose: 40 mg Documented by: Loratadine (Claritin) 10 mg PO DAILY PRN PRN Reason: Allergy Symptoms Last Admin: 09/20/18 09:15 Dose: 10 mg Documented by: Meloxicam (Mobic) 15 mg PO QDAY [facility] Last Admin: 09/20/18 09:03 Dose: 15 mg Documented by: Pantoprazole Sodium (Protonix) 40 mg IV BID [facility] Last Admin: 09/21/18 09:20 Dose: 40 mg Documented by: Tramadol HCl (Ultram) 50 mg PO Q8HR PRN PRN Reason: Pain Review of Systems ROS unobtainable: due to mental status Exam - Constitutional Vitals: Temp Pulse Resp BP Pulse Ox 99 F 104 H 24 143/53 95 09/21/18 11:00 09/21/18 11:32 09/21/18 11:32 09/21/18 11:32 09/21/18 11:32 General appearance: Present: no acute distress - Neck Neck: Present: supple - Respiratory Respiratory effort: normal - Abdominal General gastrointestinal: Present: deferred Female genitourinary: Present: deferred - Rectal Rectal Exam: deferred Results - Labs CBC & Chem 7: 09/21/18 05:15 09/19/18 15:11 Labs: Abnormal lab results 09/19/18 09/20/18 09/20/18 Range/Units 21:10 11:52 17:17 RBC (3.65-5.03) M/mm3 MCH (28-32) pg MCHC (30-34) % Plt Count (140-440) K/mm3 [place] % (Auto) (0.0-7.3) % [place] # (0.0-0.8) K/mm3 POC Glucose 278 H 241 H (70-105) Crossmatch See Detail 09/20/18 09/21/18 09/21/18 Range/Units 21:10 05:15 07:43 RBC 3.35 L (3.65-5.03) M/mm3 MCH 33 H (28-32) pg MCHC 35 H (30-34) % Plt Count 134 L (140-440) K/mm3 [place] % (Auto) 12.4 H (0.0-7.3) % [place] # 1.0 H (0.0-0.8) K/mm3 POC Glucose 245 H 278 H (70-105) Crossmatch - Imaging and Cardiology CT scan - abdomen: report reviewed, image reviewed Assessment and Plan Patient will be brought to the cardiac catheterization suite for mesenteric angiography and possible embolization
[2018-09-21] MEDS ORDERED: HEPARIN/NS 5000 UNIT/500ML(CATH LAB) 1,000 ML IR ONE (11:51)
[2018-09-21] MEDS ORDERED: XYLOCAINE 2% INFILTRATI ONE (11:51)
[2018-09-21] MEDS ORDERED: NACL 0.9% 500 ML 500 ML ONE (11:51)
--- NOTE | 2018-09-21 12:08 | Consultation ---
History of Present Illness Consult date: 09/21/18 Chief complaint: rectal bleeding - History of present illness History of present illness: 83 yo F who resides in [place] with hx of diverticular bleeding presents with blood per rectum. She has been hospitalized in the past for the same issue and has been treated conservatively with resolution of bleeding. Prior cscopes have shown diverticulosis. She had a cscope and egd today. She presented with a Hb of 9.6 and was transfused 2 Units of PRBC. Hb now is 11.1 and stable. She denies abdominal pain ,n/v. She is concerned mostly about blood clots coming from rectum. She has hx of dementia and has undergone multiple procedures today requiring anesthesia, making her a poor historian. Most history obtained from chart. Past History Past Medical History: other (CAD/ID, anemia, diabetes, hypertension, hyperlipidemia, diverticular bleeding,stroke, dementia ) Past Surgical History: Other (hysterectomy, bilateral knee surgery, PTCA, cscope/EGD) Social history: other (alf resident). denies: smoking, alcohol abuse Medications and Allergies Allergies Allergy/AdvReac Type Severity Reaction Status Date / Time aspirin Allergy Hives Verified 09/19/18 14:52 codeine Allergy Itching Verified 09/19/18 14:52 Home Medications Medication Instructions Recorded Confirmed Last Taken Type AtorvaSTATin [Lipitor] 20 mg PO QHS #30 tablet 04/18/18 09/19/18 05/13/18 22:00 Rx ISOSORBIDE MONOnitrate [Imdur ER] 60 mg PO QDAY #30 tablet 04/18/18 09/19/18 05/14/18 10:00 Rx Aspirin EC 81 mg PO QDAY #30 tablet. 05/17/18 09/19/18 Unknown Rx Atenolol [Tenormin] 50 mg PO QDAY tablet 05/17/18 09/19/18 Unknown Rx Acetaminophen [Tylenol] 650 mg PO Q4HR PRN 09/19/18 09/19/18 Unknown History Cetirizine HCl [Zyrtec 10mg tab] 10 mg PO QDAY PRN 09/19/18 09/19/18 Unknown History Donepezil [Aricept] 5 mg PO HS 09/19/18 09/19/18 Unknown History Insulin Aspart [Novolog] See Protocol SUB-Q BID 09/19/18 09/19/18 Unknown History Lisinopril [Zestril TAB] 40 mg PO QDAY 09/19/18 09/19/18 Unknown History Meloxicam [Mobic] 15 mg PO QDAY 09/19/18 09/19/18 Unknown History cloNIDine [Catapres] 0.1 mg PO Q12H 09/19/18 09/19/18 Unknown History traMADol [Ultram] 50 mg PO Q8HR PRN 09/19/18 09/19/18 Unknown History Active Meds: Active Medications Acetaminophen (Tylenol) 650 mg PO Q4HR PRN PRN Reason: Pain Atenolol (Tenormin) 50 mg PO QDAY [facility] Last Admin: 09/20/18 09:04 Dose: 50 mg Documented by: Atorvastatin Calcium (Lipitor) 20 mg PO QHS [facility] Last Admin: 09/20/18 23:14 Dose: Not Given Documented by: Clonidine HCl (Catapres) 0.1 mg PO Q12H [facility] Last Admin: 09/20/18 23:13 Dose: Not Given Documented by: Donepezil HCl (Aricept) 5 mg PO HS [facility] Last Admin: 09/20/18 23:14 Dose: Not Given Documented by: Dextrose/Sodium Chloride (D5/0.45ns) 1,000 mls @ 75 mls/hr IV DIRECT [facility] Last Admin: 09/20/18 23:13 Dose: 75 mls/hr Documented by: Isosorbide Mononitrate (Imdur) 60 mg PO QDAY [facility] Last Admin: 09/20/18 09:05 Dose: 60 mg Documented by: Lisinopril (Zestril) 40 mg PO QDAY [facility] Last Admin: 09/20/18 09:04 Dose: 40 mg Documented by: Loratadine (Claritin) 10 mg PO DAILY PRN PRN Reason: Allergy Symptoms Last Admin: 09/20/18 09:15 Dose: 10 mg Documented by: Meloxicam (Mobic) 15 mg PO QDAY [facility] Last Admin: 09/20/18 09:03 Dose: 15 mg Documented by: Pantoprazole Sodium (Protonix) 40 mg IV BID [facility] Last Admin: 09/21/18 09:20 Dose: 40 mg Documented by: Tramadol HCl (Ultram) 50 mg PO Q8HR PRN PRN Reason: Pain Review of Systems All systems: negative (10 pt ROS performed and negative except for that listed in HPI) Exam Vital Signs Pulse Resp BP Pulse Ox 77 16 115/70 98 09/19/18 14:48 09/19/18 14:48 09/19/18 14:48 09/19/18 14:48 Narrative exam: Gen: Awake and alert. NAD ENt: no scleral icterus or conjunctival pallor CV: S1, S2+ Resp; even and unlabored Abd: soft, ND, mild suprapubic TTP. no r/r/g Ext: no c/c/e Results - Labs 09/21/18 05:15 09/19/18 15:11 Abnormal lab results 09/19/18 09/20/18 09/20/18 Range/Units 21:10 11:52 17:17 RBC (3.65-5.03) M/mm3 MCH (28-32) pg MCHC (30-34) % Plt Count (140-440) K/mm3 [place] % (Auto) (0.0-7.3) % [place] # (0.0-0.8) K/mm3 POC Glucose 278 H 241 H (70-105) Crossmatch See Detail 09/20/18 09/21/18 09/21/18 Range/Units 21:10 05:15 07:43 RBC 3.35 L (3.65-5.03) M/mm3 MCH 33 H (28-32) pg MCHC 35 H (30-34) % Plt Count 134 L (140-440) K/mm3 [place] % (Auto) 12.4 H (0.0-7.3) % [place] # 1.0 H (0.0-0.8) K/mm3 POC Glucose 245 H 278 H (70-105) Crossmatch - Imaging CT scan - abdomen: report reviewed, image reviewed CT scan - pelvis: report reviewed, image reviewed Assessment and Plan 83 yo F with 1. LGIB secondary to diverticular disease 2. anemia CTA abd - area of possible IV contrast extravasation at hepatic flexure Cscope 09/21/18 - Schwartz diverticulosis, blood throughout the colon. Clot at hepatic flexure, no active bleeding, fresh blood throughout colon EGD 09/21/18- cratered, clean based duodenal bulb ulcer without bleeding stigmata Plan: 1. ok to start diet 2. IVF 3. trend Hb - currently stable 4. transfuse as needed 5. IR consulted - pt underwent mesenteric angiography and no active bleeding was identified 6. Hopefully this will be a self limited diverticular bleed such as prior episodes. If patient continues to bleed she will likely need total colectomy. She is at an advanced age with multiple medical risk factors making this an unfavorable option. Would reserve surgery for emergent or urgent need. Discussed this with patient, however with her underlying dementia I am not sure she understands. She has a brother and sister in law who will be here tomorrow. Will follow up tomorrow Discussed with Dr. Bills. Thank you, please call with questions.
[2018-09-21] MEDS: VERSED ONE ×2 (12:38→12:53)
[2018-09-21] MEDS: SUBLIMAZE ONE ×2 (12:38→12:53)
[2018-09-21] MEDS ORDERED: ULTRAM PO PRN ×2 (13:00)
--- NOTE | 2018-09-21 14:33 | Operative Report ---
Operative Report Operative Report: Exam: Mesenteric angiography Clinical indication: Patient with a history of GI bleed. Colonoscopy demonstrat ed numerous diverticula with clot at the hepatic flexure and fresh blood throughout the colon. Date: 09/21/2018 Procedure: The procedure was performed with emergency consent utilizing two physician's determination of necessity of the procedure. The patient is unable to sign her own consents secondary to her mental status and no family members were available for consent. The patient was brought to the angiographic suite and placed in supine position on the examination table. Initial ultrasound evaluation of her groin demonstrated patent right common femoral artery. The patient's right groin was prepped and draped in usual sterile fashion. One percent lidocaine was used for anesthesia. Under ultrasound guidance, the right common femoral artery was cannulated with a 7 cm 21-gauge needle. A 0.018 guidewire was advanced centrally. The needle was removed and a micro-sheath placed. The 0.018 guidewire was exchanged for a 0.035 guidewire and the micro-sheath exchange for a 5 Grenadian vascular sheath. A 5 [place] SOS Omni catheter was advanced over the guidewire and the guidewire and catheter advanced to approximately the level of T12. Selective cannulation of the superior mesenteric artery was then performed and imaging of all 4 quadrants performed. No identifiable source of bleeding was identified. The area of suspicion in the ascending colon on CT was isolated. A renegade high flow microcatheter and guidewire were then advanced through the SOS Omni catheter with selective cannulation of the ilieocolic, right colic and middle colic arteries was performed. Angiography was performed at each location. No identifiable source of bleeding is identified. At this point, the catheters, guidewire sheaths were removed and hemostasis achieved using manual compression and Angioseal arterial closure device. A sterile pressure dressing was applied. The patient tolerated the procedure well. There were no immediate postprocedure complications. A minimal amount of sedation was utilized secondary to patient's altered mental status. Continuous cardiopulmonary monitoring was utilized. Impression: 1) Angiography with catheter placement in the SMA, right colic artery, ileocolic artery and middle colic artery which demonstrates no bleeding at the time of the examination.
[2018-09-21] MEDS: TENORMIN PO SCH ×2 (14:38→17:50)
[2018-09-21] MEDS: IMDUR PO SCH ×2 (14:38→17:50)
[2018-09-21] MEDS: CLARITIN PO PRN ×2 (14:38→17:48)
[2018-09-21] MEDS: ZESTRIL PO SCH (14:39)
[2018-09-21] MEDS: MOBIC PO SCH ×2 (14:39→17:48)
[2018-09-21] MEDS: CATAPRES PO SCH ×3 (14:39→21:23)
--- NOTE | 2018-09-21 18:50 | Progress Note ---
Assessment and Plan - Patient Problems (1) LGI bleed Current Visit: Yes Status: Acute Plan to address problem: Follow GI , monitor labs. notes reviewed from GI. this is severe diverticular dz., not amendable to surgery. (2) Dementia Current Visit: Yes Status: Chronic Qualifiers: Alzheimer's disease onset: unspecified onset Dementia behavioral disturbance: without behavioral disturbance Plan to address problem: supportive care. (3) Abdominal pain Current Visit: Yes Status: Acute Plan to address problem: Await scope. (4) Anemia Current Visit: Yes Status: Acute Plan to address problem: Monitor labs PRN. Transfusion, as necessary. Subjective Date of service: 09/21/18 Principal diagnosis: acute GI bleed. Interval history: Patient seen/examined, resting in bed, labs/ notes/consults reviewed. Patient scheduled for a scope tomorrow.I have given some transfusion, and will do H/h q6hrs. Patient seen/examined, resting in beed, labs/ operative notes reviewed.Will restart on IVF, and restart diet tomorrow. Objective - Constitutional Vitals: Vital Signs - 12hr 09/21/18 09/21/18 09/21/18 09:13 09:39 09:42 Temperature 98.1 F 98.2 F 98.2 F Pulse Rate 109 H 112 H 112 H Pulse Rate [ Apical] Respiratory 20 17 17 Rate Blood Pressure 146/73 124/62 124/62 O2 Sat by Pulse 99 100 100 Oximetry 09/21/18 09/21/18 09/21/18 11:00 11:20 11:32 Temperature 99 F Pulse Rate 114 H 106 H 104 H Pulse Rate [ Apical] Respiratory 16 22 24 Rate Blood Pressure 133/55 143/62 143/53 O2 Sat by Pulse 98 95 95 Oximetry 09/21/18 09/21/18 09/21/18 11:48 12:07 13:00 Temperature Pulse Rate 113 H 103 H Pulse Rate [ 117 H Apical] Respiratory 19 21 Rate Blood Pressure 144/66 134/66 O2 Sat by Pulse 95 98 Oximetry 09/21/18 09/21/18 09/21/18 14:39 15:03 17:50 Temperature 99 F Pulse Rate 89 89 89 Pulse Rate [ Apical] Respiratory 21 Rate Blood Pressure 147/73 147/73 147/73 O2 Sat by Pulse 98 Oximetry General appearance: Present: mild distress, well-nourished - EENT Eyes: PERRL, EOM intact ENT: hearing intact, clear oral mucosa Ears: bilateral: normal - Neck Neck: supple, normal ROM - Respiratory Respiratory effort: normal Respiratory: bilateral: CTA - Breasts Breasts: deferred - Cardiovascular Rhythm: regular Heart Sounds: Present: S1 & S2. Absent: gallop, rub Extremities: pulses intact, No edema, normal color, Full ROM - Gastrointestinal General gastrointestinal: Present: soft, non-tender, non-distended, normal bowel sounds Rectal Exam: deferred - Genitourinary Female genitourinary: deferred - Integumentary Integumentary: clear, warm, dry - Musculoskeletal Musculoskeletal: 1, strength equal bilaterally - Neurologic Neurologic: moves all extremities - Psychiatric Psychiatric: appropriate mood/affect - Labs CBC & Chem 7: 09/21/18 05:15 09/19/18 15:11 Labs: Abnormal lab results 09/19/18 09/20/18 09/21/18 Range/Units 21:10 21:10 05:15 RBC 3.35 L (3.65-5.03) M/mm3 MCH 33 H (28-32) pg MCHC 35 H (30-34) % Plt Count 134 L (140-440) K/mm3 [place] % (Auto) 12.4 H (0.0-7.3) % [place] # 1.0 H (0.0-0.8) K/mm3 POC Glucose 245 H (70-105) Crossmatch See Detail 09/21/18 09/21/18 Range/Units 07:43 16:35 RBC (3.65-5.03) M/mm3 MCH (28-32) pg MCHC (30-34) % Plt Count (140-440) K/mm3 [place] % (Auto) (0.0-7.3) % [place] # (0.0-0.8) K/mm3 POC Glucose 278 H 237 H (70-105) Crossmatch
[2018-09-21] MEDS ORDERED: D5/0.45NS 1,000 ML IV SCH (19:00)
[2018-09-21 20:07] LABS: Basophils % (Auto) 0.2 % (0.0-1.8); Eosinophils % (Auto) 0.3 % (0.0-4.3); Hematocrit 25.9 % (30.3-42.9); Hemoglobin 8.7 gm/dl (10.1-14.3); Lymphocytes # (Auto) 1.2 K/mm3 (1.2-5.4); Lymphocytes % (Auto) 12.7 % (13.4-35.0); Mean Corpuscular HGB Conc 34 % (30-34); Mean Corpuscular Volume 97 fl (79-97); Monocytes # (Auto) 1.1 K/mm3 (0.0-0.8); Platelet Count 137 K/mm3 (140-440); Red Blood Count 2.66 M/mm3 (3.65-5.03)
[2018-09-21] MEDS: ARICEPT PO SCH (21:24)
[2018-09-22 01:34] LABS: Hematocrit 23.4 % (30.3-42.9); Mean Corpuscular HGB Conc 34 % (30-34); Mean Corpuscular Volume 96 fl (79-97); Platelet Count 127 K/mm3 (140-440); Red Blood Count 2.43 M/mm3 (3.65-5.03); Red Cell Distribution Width 13.8 % (13.2-15.2)
[2018-09-22 06:10] LABS: Basophils % (Auto) 0.2 % (0.0-1.8); Eosinophils % (Auto) 0.1 % (0.0-4.3); Hematocrit 23.4 % (30.3-42.9); Lymphocytes # (Auto) 2.1 K/mm3 (1.2-5.4); Lymphocytes % (Auto) 26.4 % (13.4-35.0); Mean Corpuscular HGB Conc 34 % (30-34); Mean Corpuscular Volume 97 fl (79-97); Monocytes # (Auto) 1.1 K/mm3 (0.0-0.8); Platelet Count 118 K/mm3 (140-440); Red Blood Count 2.43 M/mm3 (3.65-5.03); Red Cell Distribution Width 13.7 % (13.2-15.2)
[2018-09-22] MEDS: CATAPRES PO SCH ×2 (08:21→23:00)
[2018-09-22] MEDS: PROTONIX IV SCH ×2 (09:39→22:38)
--- NOTE | 2018-09-22 10:42 | Gastroenterology Progress Note ---
<CARLO FALL - Last Filed: 09/22/18 10:52> Assessment and Plan 1.GI bleed -H/H 8.0/23.4-stable -continue to monitor H/H and transfuse as needed -no active signs of bleeding this am per nursing -continue to hold blood thinning medications -CTA with an area of concern just proximal to the hepatic flexure -s/p EGD yesterday that showed a clean based duodenal bulb ulcer w/o high risk bleeding stigmata -s/p colonoscopy yesterday that showed holden-diverticulosis with fresh appearing blood throughout the colon with a large clot at the hepatic flexure -s/p mesenteric angiography yesterday by IR, but no active bleeding was identif ied -continue PPI and supportive care -okay for clears for now -if patient rebleeds, will most likely need total colectomy per surgery -will follow Subjective Date of service: 09/22/18 Principal diagnosis: acute GI bleed. Interval history: No active signs of bleeding this am per nursing. Objective - Constitutional Vitals: Temp Pulse Resp BP Pulse Ox 98.5 F 72 20 151/52 95 09/22/18 08:14 09/22/18 08:14 09/22/18 08:14 09/22/18 08:21 09/22/18 08:14 General appearance: no acute distress, other (somnolent) - Respiratory Respiratory effort: normal - Cardiovascular Rhythm: regular - Gastrointestinal General gastrointestinal: Present: soft, non-distended, normal bowel sounds - Labs CBC & Chem 7: 09/22/18 05:20 09/19/18 15:11 Labs: Laboratory Results - last 24 hr 09/21/18 09/21/18 09/21/18 16:35 19:20 19:42 WBC 9.8 RBC 2.66 L Hgb 8.7 L Hct 25.9 L D MCV 97 MCH 33 H MCHC 34 RDW 14.0 Plt Count 137 L Lymph % (Auto) 12.7 L [place] % (Auto) 11.0 H Eos % (Auto) 0.3 Baso % (Auto) 0.2 Lymph # 1.2 [place] # 1.1 H Eos # 0.0 Baso # 0.0 Seg Neutrophils % 75.8 H Seg Neutrophils # 7.4 POC Glucose 237 H 264 H 09/22/18 09/22/18 09/22/18 01:05 05:20 07:29 WBC 7.3 8.1 RBC 2.43 L 2.43 L Hgb 8.0 L 8.0 L Hct 23.4 L 23.4 L MCV 96 97 MCH 33 H 33 H MCHC 34 34 RDW 13.8 13.7 Plt Count 127 L 118 L Lymph % (Auto) 26.4 [place] % (Auto) 14.0 H Eos % (Auto) 0.1 Baso % (Auto) 0.2 Lymph # 2.1 [place] # 1.1 H Eos # 0.0 Baso # 0.0 Seg Neutrophils % 59.3 Seg Neutrophils # 4.8 POC Glucose 335 H <SLICK DESOUZA - Last Filed: 09/22/18 19:14> Assessment and Plan Pt seen and examined. agree with note above. hopefully bleeding has subsided; monitor labs and clinical course. suspect diverticular bleeding. surgery following. Objective - Constitutional Vitals: Temp Pulse Resp BP Pulse Ox 98.4 F 68 18 156/62 100 09/22/18 16:01 09/22/18 16:01 09/22/18 16:01 09/22/18 16:01 09/22/18 16:01 - Labs CBC & Chem 7: 09/22/18 05:20 09/19/18 15:11 Labs: Laboratory Results - last 24 hr 09/21/18 09/21/18 09/22/18 19:20 19:42 01:05 WBC 9.8 7.3 RBC 2.66 L 2.43 L Hgb 8.7 L 8.0 L Hct 25.9 L D 23.4 L MCV 97 96 MCH 33 H 33 H MCHC 34 34 RDW 14.0 13.8 Plt Count 137 L 127 L Lymph % (Auto) 12.7 L [place] % (Auto) 11.0 H Eos % (Auto) 0.3 Baso % (Auto) 0.2 Lymph # 1.2 [place] # 1.1 H Eos # 0.0 Baso # 0.0 Seg Neutrophils % 75.8 H Seg Neutrophils # 7.4 POC Glucose 264 H 09/22/18 09/22/18 09/22/18 05:20 07:29 11:48 WBC 8.1 RBC 2.43 L Hgb 8.0 L Hct 23.4 L MCV 97 MCH 33 H MCHC 34 RDW 13.7 Plt Count 118 L Lymph % (Auto) 26.4 [place] % (Auto) 14.0 H Eos % (Auto) 0.1 Baso % (Auto) 0.2 Lymph # 2.1 [place] # 1.1 H Eos # 0.0 Baso # 0.0 Seg Neutrophils % 59.3 Seg Neutrophils # 4.8 POC Glucose 335 H 300 H 09/22/18 16:55 WBC RBC Hgb Hct MCV MCH MCHC RDW Plt Count Lymph % (Auto) [place] % (Auto) Eos % (Auto) Baso % (Auto) Lymph # [place] # Eos # Baso # Seg Neutrophils % Seg Neutrophils # POC Glucose 340 H
[2018-09-22] MEDS: MOBIC PO SCH (12:31)
[2018-09-22] MEDS: ZESTRIL PO SCH (12:32)
[2018-09-22] MEDS: TENORMIN PO SCH (12:32)
[2018-09-22] MEDS: IMDUR PO SCH (12:32)
--- NOTE | 2018-09-22 12:44 | Progress Note ---
Assessment and Plan 83 yo F with 1. LGIB secondary to diverticular disease 2. anemia CTA abd - area of possible IV contrast extravasation at hepatic flexure Cscope 09/21/18 - Schwartz diverticulosis, blood throughout the colon. Clot at hepatic flexure, no active bleeding, fresh blood throughout colon EGD 09/21/18- cratered, clean based duodenal bulb ulcer without bleeding stigmata Plan: 1. clear liquid diet 2. IVF 3. trend Hb - 11.2 yesterday and trended down to 8.2. However stable at 8 over last 2 draws. Continue to monitor 4. transfuse as needed 5. IR consulted - pt underwent mesenteric angiography and no active bleeding was identified 6. Hopefully this will be a self limited diverticular bleed such as prior episodes. If patient has acute bleeding from rectum, recommend NM bleed scan STAT. If positive will discuss repeat angio with IR. Conservative management is preferred due to patient's comorbid conditions. However if patient does not respond to conservative measures and continues to bleed, surgery will be the last resort and would be total colectomy. Discussed with galdino Watson over the telephone at patient's request. Thank you, please call with questions. Subjective Date of service: 09/22/18 Narrative: Pt seen and examined. Lethargic at one point overnight per notes but improved with some fluids. NO complaints today. Has not had any further BMs or blood from rectum. No f/c. Objective Vital Signs - 12hr 09/22/18 09/22/18 09/22/18 01:57 04:34 08:00 Temperature 98.0 F Pulse Rate 70 67 Respiratory 18 16 Rate Blood Pressure 139/49 O2 Sat by Pulse 96 Oximetry 09/22/18 09/22/18 09/22/18 08:14 08:21 11:00 Temperature 98.5 F Pulse Rate 72 69 Respiratory 20 Rate Blood Pressure 151/52 151/52 O2 Sat by Pulse 95 Oximetry 09/22/18 12:32 Temperature Pulse Rate Respiratory Rate Blood Pressure 151/52 O2 Sat by Pulse Oximetry - General physical appearance Narrative Exam: Gen: Awake and alert. 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
--- NOTE | 2018-09-22 14:12 | Progress Note ---
Assessment and Plan - Patient Problems (1) LGI bleed Current Visit: Yes Status: Acute Plan to address problem: Follow GI , monitor labs. notes reviewed from GI. this is severe diverticular dz., not amendable to surgery. See notes above. (2) Dementia Current Visit: Yes Status: Chronic Qualifiers: Alzheimer's disease onset: unspecified onset Dementia behavioral disturbance: without behavioral disturbance Plan to address problem: supportive care. (3) Abdominal pain Current Visit: Yes Status: Acute Plan to address problem: Await scope. (4) Anemia Current Visit: Yes Status: Acute Plan to address problem: Monitor labs PRN. Transfusion, as necessary. Subjective Date of service: 09/22/18 Principal diagnosis: acute GI bleed. Interval history: Patient seen/examined, resting in bed, labs/ notes/consults reviewed. Patient scheduled for a scope tomorrow.I have given some transfusion, and will do H/h q6hrs. Patient seen/examined, resting in bed, labs/ operative notes reviewed.Will restart on IVF, and restart diet tomorrow. Patient seen/examined, resting in bed, notes/labs reviewed. i had spoken to her daughter yesterday, with full update. She is not keen to any aggressive measures, ophelia surgery. She is contemplating AND/vs hospice.She was suppose to think about it, and let us know.Will continue with supportive care for now. Objective - Constitutional Vitals: Vital Signs - 12hr 09/22/18 09/22/18 09/22/18 04:34 08:00 08:14 Temperature 98.0 F 98.5 F Pulse Rate 67 72 Respiratory 18 16 20 Rate Blood Pressure 139/49 151/52 O2 Sat by Pulse 96 95 Oximetry 09/22/18 09/22/18 09/22/18 08:21 11:00 12:32 Temperature Pulse Rate 69 Respiratory Rate Blood Pressure 151/52 151/52 O2 Sat by Pulse Oximetry General appearance: Present: mild distress - EENT Eyes: PERRL, EOM intact ENT: hearing intact, clear oral mucosa Ears: bilateral: normal - Neck Neck: supple, normal ROM - Respiratory Respiratory effort: normal Respiratory: bilateral: CTA - Breasts Breasts: deferred - Cardiovascular Rhythm: regular Heart Sounds: Present: S1 & S2. Absent: gallop, rub Extremities: pulses intact, No edema, normal color, Full ROM - Gastrointestinal General gastrointestinal: Present: soft, non-tender, non-distended, normal bowel sounds Rectal Exam: deferred - Genitourinary Female genitourinary: deferred - Integumentary Integumentary: clear, warm, dry - Musculoskeletal Musculoskeletal: 1, strength equal bilaterally - Neurologic Neurologic: moves all extremities - Psychiatric Psychiatric: memory intact, appropriate mood/affect, intact judgment & insight - Labs CBC & Chem 7: 09/22/18 05:20 09/19/18 15:11 Labs: Abnormal lab results 09/21/18 09/21/18 09/21/18 Range/Units 16:35 19:20 19:42 RBC 2.66 L (3.65-5.03) M/mm3 Hgb 8.7 L (10.1-14.3) gm/dl Hct 25.9 L D (30.3-42.9) % MCH 33 H (28-32) pg Plt Count 137 L (140-440) K/mm3 Lymph % (Auto) 12.7 L (13.4-35.0) % [place] % (Auto) 11.0 H (0.0-7.3) % [place] # 1.1 H (0.0-0.8) K/mm3 Seg Neutrophils % 75.8 H (40.0-70.0) % POC Glucose 237 H 264 H (70-105) 09/22/18 09/22/18 09/22/18 Range/Units 01:05 05:20 07:29 RBC 2.43 L 2.43 L (3.65-5.03) M/mm3 Hgb 8.0 L 8.0 L (10.1-14.3) gm/dl Hct 23.4 L 23.4 L (30.3-42.9) % MCH 33 H 33 H (28-32) pg Plt Count 127 L 118 L (140-440) K/mm3 Lymph % (Auto) (13.4-35.0) % [place] % (Auto) 14.0 H (0.0-7.3) % [place] # 1.1 H (0.0-0.8) K/mm3 Seg Neutrophils % (40.0-70.0) % POC Glucose 335 H (70-105) 07/11/19 Range/Units 11:48 RBC (3.65-5.03) M/mm3 Hgb (10.1-14.3) gm/dl Hct (30.3-42.9) % MCH (28-32) pg Plt Count (140-440) K/mm3 Lymph % (Auto) (13.4-35.0) % [place] % (Auto) (0.0-7.3) % [place] # (0.0-0.8) K/mm3 Seg Neutrophils % (40.0-70.0) % POC Glucose 300 H (70-105)
[2018-09-22] MEDS: D5/0.45NS 1,000 ML IV SCH (14:35)
[2018-09-22] MEDS ORDERED: NACL 0.9% 500 ML 500 ML IV SCH (16:00)
[2018-09-22] MEDS: ARICEPT PO SCH (22:59)
[2018-09-23] MEDS: APRESOLINE IV PRN (05:40)
[2018-09-23 05:59] LABS: Basophils % (Auto) 0.2 % (0.0-1.8); Eosinophils # (Auto) 0.1 K/mm3 (0.0-0.4); Eosinophils % (Auto) 1.6 % (0.0-4.3); Hematocrit 23.4 % (30.3-42.9); Lymphocytes # (Auto) 1.2 K/mm3 (1.2-5.4); Lymphocytes % (Auto) 28.1 % (13.4-35.0); Mean Corpuscular HGB Conc 34 % (30-34); Mean Corpuscular Volume 98 fl (79-97); Monocytes # (Auto) 0.5 K/mm3 (0.0-0.8); Monocytes % (Auto) 12.2 % (0.0-7.3); Platelet Count 115 K/mm3 (140-440); Red Cell Distribution Width 13.6 % (13.2-15.2)
[2018-09-23 06:21] LABS: BUN/Creatinine Ratio 21; Blood Urea Nitrogen 19 mg/dL (7-17); Calcium 8.5 mg/dL (8.4-10.2); Hemolysis Index 9
--- NOTE | 2018-09-23 08:08 | Gastroenterology Progress Note ---
Assessment and Plan 1. GI bleed - suspect diverticular; CTA negative for active bleeding at time of study. No further bleeding x 2 days and H/H has remained stable. 2. Duodenal ulcer - no high risk bleeding stigmata -okay to start clears from gi stand point -no further GI recommendations at this time. if pt re-bleeds, options would be to repeat CTA/bleeding scan vs surgery will sign off, please call as needed or with questions. Subjective Date of service: 09/23/18 Principal diagnosis: acute GI bleed. Interval history: Pt seen and examined. no further bleeding episodes overnight. H/H stable. awake at time of exam, confused (appears baseline). Objective - Constitutional Vitals: Temp Pulse Resp BP Pulse Ox 98.0 F 62 18 183/64 100 09/23/18 04:08 09/23/18 04:08 09/23/18 04:08 09/23/18 04:08 09/23/18 04:08 General appearance: no acute distress - Respiratory Respiratory effort: normal Respiratory: bilateral: CTA - Cardiovascular Rhythm: regular Heart Sounds: Present: S1 & S2 - Gastrointestinal General gastrointestinal: Present: soft, non-tender, non-distended - Labs CBC & Chem 7: 09/23/18 04:52 09/23/18 04:52 Labs: Laboratory Results - last 24 hr 09/22/18 09/22/18 09/22/18 11:48 16:55 21:04 WBC RBC Hgb Hct MCV MCH MCHC RDW Plt Count Lymph % (Auto) [place] % (Auto) Eos % (Auto) Baso % (Auto) Lymph # [place] # Eos # Baso # Seg Neutrophils % Seg Neutrophils # Sodium Potassium Chloride Carbon Dioxide Anion Gap BUN Creatinine Estimated GFR BUN/Creatinine Ratio Glucose POC Glucose 300 H 340 H 285 H Calcium 09/23/18 09/23/18 09/23/18 04:52 04:52 07:33 WBC 4.4 L RBC 2.40 L Hgb 8.0 L Hct 23.4 L MCV 98 H MCH 33 H MCHC 34 RDW 13.6 Plt Count 115 L Lymph % (Auto) 28.1 [place] % (Auto) 12.2 H Eos % (Auto) 1.6 Baso % (Auto) 0.2 Lymph # 1.2 [place] # 0.5 Eos # 0.1 Baso # 0.0 Seg Neutrophils % 57.9 Seg Neutrophils # 2.6 Sodium 142 Potassium 4.3 Chloride 110.6 H Carbon Dioxide 22 Anion Gap 14 BUN 19 H Creatinine 0.9 Estimated GFR > 60 BUN/Creatinine Ratio 21 Glucose 220 H POC Glucose 216 H Calcium 8.5
[2018-09-23] MEDS: IMDUR PO SCH (09:47)
[2018-09-23] MEDS: TYLENOL PO PRN (09:47)
[2018-09-23] MEDS: MOBIC PO SCH (09:48)
[2018-09-23] MEDS: ZESTRIL PO SCH (09:48)
[2018-09-23] MEDS: CATAPRES PO SCH ×2 (09:48→21:52)
[2018-09-23] MEDS: TENORMIN PO SCH (09:49)
[2018-09-23] MEDS: PROTONIX IV SCH ×2 (09:49→21:52)
--- NOTE | 2018-09-23 15:24 | Progress Note ---
Assessment and Plan 83 yo F with 1. LGIB secondary to diverticular disease 2. anemia CTA abd - area of possible IV contrast extravasation at hepatic flexure Cscope 09/21/18 - Schwartz diverticulosis, blood throughout the colon. Clot at hepatic flexure, no active bleeding, fresh blood throughout colon EGD 09/21/18- cratered, clean based duodenal bulb ulcer without bleeding stigmata 09/21/18 - IR consulted - pt underwent mesenteric angiography and no active bl eeding was identified Plan: 1. soft diet 2. dc IVF 3. trend Hb - so far stable in 8 range 4. transfuse as needed 5. No bleeding for last 24-36 hours. If patient has acute bleeding from rectum, recommend NM bleed scan STAT. If positive will discuss repeat angio with IR. Conservative management is preferred due to patient's comorbid conditions. However if patient does not respond to conservative measures and continues to bleed, surgery will be the last resort and would be total colectomy. Discussed with grandson and daughter at length yesterday. OK to DC from surgery standpoint. Thank you, please call with questions. Subjective Date of service: 09/23/18 Narrative: Pt seen and examined. No acute complaints. Per nursing no blood per rectum and patient has been tolerating her diet. No abdominal pain. No BM this shift. Objective Vital Signs - 12hr 09/23/18 09/23/18 09/23/18 04:08 08:15 08:17 Temperature 98.0 F 98.4 F 98.4 F Pulse Rate 62 Respiratory 18 18 18 Rate Blood Pressure 183/64 153/62 O2 Sat by Pulse 100 Oximetry 09/23/18 11:22 Temperature 98.0 F Pulse Rate 67 Respiratory 18 Rate Blood Pressure 110/44 O2 Sat by Pulse 96 Oximetry - General physical appearance Narrative Exam: Gen: Lethargic but arousable. NAD CV; S1, s2+ resp; even and unlabored Abd: soft, NT, ND Ext: no c/c/e - Labs 09/23/18 04:52 09/23/18 04:52 Diabetes panel 09/23/18 Range/Units 04:52 Sodium 142 (137-145) mmol/L Potassium 4.3 (3.6-5.0) mmol/L Chloride 110.6 H (98-107) mmol/L Carbon Dioxide 22 (22-30) mmol/L BUN 19 H (7-17) mg/dL Creatinine 0.9 (0.7-1.2) mg/dL Glucose 220 H (65-100) mg/dL Calcium 8.5 (8.4-10.2) mg/dL Calcium panel 09/23/18 Range/Units 04:52 Calcium 8.5 (8.4-10.2) mg/dL Pituitary panel 09/23/18 Range/Units 04:52 Sodium 142 (137-145) mmol/L Potassium 4.3 (3.6-5.0) mmol/L Chloride 110.6 H (98-107) mmol/L Carbon Dioxide 22 (22-30) mmol/L BUN 19 H (7-17) mg/dL Creatinine 0.9 (0.7-1.2) mg/dL Glucose 220 H (65-100) mg/dL Calcium 8.5 (8.4-10.2) mg/dL Adrenal panel 09/23/18 Range/Units 04:52 Sodium 142 (137-145) mmol/L Potassium 4.3 (3.6-5.0) mmol/L Chloride 110.6 H (98-107) mmol/L Carbon Dioxide 22 (22-30) mmol/L BUN 19 H (7-17) mg/dL Creatinine 0.9 (0.7-1.2) mg/dL Glucose 220 H (65-100) mg/dL Calcium 8.5 (8.4-10.2) mg/dL
[2018-09-23] MEDS ORDERED: HumuLIN R SUB-Q ONE (18:02)
[2018-09-23] MEDS: ARICEPT PO SCH (21:51)
[2018-09-23] MEDS: HumuLIN R SUB-Q SCH (21:53)
--- NOTE | 2018-09-23 22:15 | Progress Note ---
Assessment and Plan - Patient Problems (1) LGI bleed Current Visit: Yes Status: Acute Plan to address problem: Follow GI , monitor labs. notes reviewed from GI. this is severe diverticular dz., not amendable to surgery. See notes above. None in the last 24hrs. (2) Dementia Current Visit: Yes Status: Chronic Qualifiers: Alzheimer's disease onset: unspecified onset Dementia behavioral disturbance: without behavioral disturbance Plan to address problem: supportive care. (3) Abdominal pain Current Visit: Yes Status: Acute Plan to address problem: Await scope. resolved. (4) Anemia Current Visit: Yes Status: Acute Plan to address problem: Monitor labs PRN. Transfusion, as necessary. Subjective Date of service: 09/23/18 Principal diagnosis: acute GI bleed. Interval history: Patient seen/examined, resting in bed, labs/ notes/consults reviewed. Patient scheduled for a scope tomorrow.I have given some transfusion, and will do H/h q6hrs. Patient seen/examined, resting in bed, labs/ operative notes reviewed.Will restart on IVF, and restart diet tomorrow. Patient seen/examined, resting in bed, notes/labs reviewed. i had spoken to her daughter yesterday, with full update. She is not keen to any aggressive olamide sures, ophelia surgery. She is contemplating AND/vs hospice.She was suppose to think about it, and let us know.Will continue with supportive care for now. Patient seen/examined, resting in bed, labs reviewed. No active bleeding. GI/Surgery notes reviewed also. Objective - Constitutional Vitals: Vital Signs - 12hr 09/23/18 09/23/18 09/23/18 11:22 16:19 19:29 Temperature 98.0 F 98.0 F 98.3 F Pulse Rate 67 69 68 Respiratory 18 20 20 Rate Blood Pressure 110/44 149/57 130/52 O2 Sat by Pulse 96 97 100 Oximetry General appearance: Present: mild distress - EENT Eyes: PERRL, EOM intact ENT: hearing intact, clear oral mucosa Ears: bilateral: normal - Neck Neck: supple, normal ROM - Respiratory Respiratory effort: normal Respiratory: bilateral: CTA - Breasts Breasts: deferred - Cardiovascular Rhythm: regular Heart Sounds: Present: S1 & S2. Absent: gallop, rub Extremities: pulses intact, No edema, normal color, Full ROM - Gastrointestinal General gastrointestinal: Present: soft, non-tender, non-distended, normal bowel sounds Rectal Exam: deferred - Genitourinary Female genitourinary: deferred - Integumentary Integumentary: clear, warm, dry - Musculoskeletal Musculoskeletal: 1, strength equal bilaterally - Neurologic Neurologic: moves all extremities - Psychiatric Psychiatric: appropriate mood/affect - Labs CBC & Chem 7: 09/23/18 04:52 09/23/18 04:52 Labs: Abnormal lab results 09/23/18 09/23/18 09/23/18 Range/Units 04:52 04:52 07:33 WBC 4.4 L (4.5-11.0) K/mm3 RBC 2.40 L (3.65-5.03) M/mm3 Hgb 8.0 L (10.1-14.3) gm/dl Hct 23.4 L (30.3-42.9) % MCV 98 H (79-97) fl MCH 33 H (28-32) pg Plt Count 115 L (140-440) K/mm3 [place] % (Auto) 12.2 H (0.0-7.3) % Chloride 110.6 H (98-107) mmol/L BUN 19 H (7-17) mg/dL Glucose 220 H (65-100) mg/dL POC Glucose 216 H (70-105) 09/23/18 09/23/18 09/23/18 Range/Units 11:23 16:23 20:33 WBC (4.5-11.0) K/mm3 RBC (3.65-5.03) M/mm3 Hgb (10.1-14.3) gm/dl Hct (30.3-42.9) % MCV (79-97) fl MCH (28-32) pg Plt Count (140-440) K/mm3 [place] % (Auto) (0.0-7.3) % Chloride (98-107) mmol/L BUN (7-17) mg/dL Glucose (65-100) mg/dL POC Glucose 307 H 361 H 261 H (70-105)
[2018-09-24 06:45] LABS: Basophils % (Auto) 0.3 % (0.0-1.8); Eosinophils # (Auto) 0.1 K/mm3 (0.0-0.4); Eosinophils % (Auto) 1.2 % (0.0-4.3); Hematocrit 24.8 % (30.3-42.9); Lymphocytes # (Auto) 1.4 K/mm3 (1.2-5.4); Mean Corpuscular HGB Conc 32 % (30-34); Mean Corpuscular Volume 100 fl (79-97); Monocytes # (Auto) 0.5 K/mm3 (0.0-0.8); Monocytes % (Auto) 11.1 % (0.0-7.3); Platelet Count 145 K/mm3 (140-440); Red Blood Count 2.47 M/mm3 (3.65-5.03); Red Cell Distribution Width 13.6 % (13.2-15.2)
[2018-09-24 07:04] LABS: BUN/Creatinine Ratio 26; Blood Urea Nitrogen 18 mg/dL (7-17); Calcium 8.5 mg/dL (8.4-10.2); Hemolysis Index 39
[2018-09-24] MEDS: HumuLIN R SUB-Q SCH ×4 (07:40→22:44)
[2018-09-24] MEDS: IMDUR PO SCH (09:52)
[2018-09-24] MEDS: ZESTRIL PO SCH (09:52)
[2018-09-24] MEDS: PROTONIX IV SCH (09:53)
[2018-09-24] MEDS: CATAPRES PO SCH ×2 (09:53→22:35)
[2018-09-24] MEDS: TENORMIN PO SCH (09:53)
--- NOTE | 2018-09-24 15:40 | Progress Note ---
Assessment and Plan - Patient Problems (1) LGI bleed Current Visit: Yes Status: Acute Plan to address problem: Follow GI , monitor labs. notes reviewed from GI. this is severe diverticular dz., not amendable to surgery. See notes above. None in the last 24hrs. (2) Dementia Current Visit: Yes Status: Chronic Qualifiers: Alzheimer's disease onset: unspecified onset Dementia behavioral disturbance: without behavioral disturbance Plan to address problem: supportive care. (3) Abdominal pain Current Visit: Yes Status: Acute Plan to address problem: Await scope. resolved. (4) Anemia Current Visit: Yes Status: Acute Plan to address problem: Monitor labs PRN. Transfusion, as necessary. same as above. Subjective Date of service: 09/24/18 Principal diagnosis: acute GI bleed. Interval history: Patient seen/examined, resting in bed, labs/ notes/consults reviewed. Patient scheduled for a scope tomorrow.I have given some transfusion, and will do H/h q6hrs. Patient seen/examined, resting in bed, labs/ operative notes reviewed.Will restart on IVF, and restart diet tomorrow. Patient seen/examined, resting in bed, notes/labs reviewed. i had spoken to her daughter yesterday, with full update. She is not keen to any aggressive measures, ophelia surgery. She is contemplating AND/vs hospice.She was suppose to think about it, and let us know.Will continue with supportive care for now. Patient seen/examined, resting in bed, labs reviewed. No active bleeding. GI/Surgery notes reviewed also. Patient seen/examined, resting in bed, notes/labs reviewed.No report of any active bleeding at this time. If this remains this way, will discharge back to the [place] 2days ,or so. Objective - Constitutional Vitals: Vital Signs - 12hr 09/24/18 09/24/18 09/24/18 03:37 08:00 09:31 Temperature 98.4 F 98.4 F Pulse Rate 65 66 73 Pulse Rate [ 73 From Monitor] Respiratory 20 Rate Blood Pressure 140/51 Blood Pressure 170/69 [Right] O2 Sat by Pulse 100 96 96 Oximetry 09/24/18 09/24/18 09/24/18 09:52 09:53 12:02 Temperature 98.4 F Pulse Rate 73 73 72 Pulse Rate [ From Monitor] Respiratory 18 Rate Blood Pressure 170/69 170/69 132/63 Blood Pressure [Right] O2 Sat by Pulse 99 Oximetry General appearance: Present: no acute distress - EENT Eyes: PERRL, EOM intact ENT: hearing intact, clear oral mucosa Ears: bilateral: normal - Neck Neck: supple, normal ROM - Respiratory Respiratory effort: normal Respiratory: bilateral: CTA - Breasts Breasts: deferred - Cardiovascular Rhythm: regular Heart Sounds: Present: S1 & S2. Absent: gallop, rub Extremities: pulses intact, No edema, normal color, Full ROM - Gastrointestinal General gastrointestinal: Present: soft, non-tender, non-distended, normal bowel sounds Rectal Exam: deferred - Genitourinary Female genitourinary: deferred - Integumentary Integumentary: clear, warm, dry - Musculoskeletal Musculoskeletal: 1, strength equal bilaterally - Neurologic Neurologic: moves all extremities - Psychiatric Psychiatric: memory intact, appropriate mood/affect, intact judgment & insight - Labs CBC & Chem 7: 09/24/18 06:09 09/24/18 06:09 Labs: Abnormal lab results 09/23/18 09/23/18 09/24/18 Range/Units 16:23 20:33 06:09 RBC 2.47 L (3.65-5.03) M/mm3 Hgb 8.0 L (10.1-14.3) gm/dl Hct 24.8 L (30.3-42.9) % MCV 100 H (79-97) fl MCH 33 H (28-32) pg [place] % (Auto) 11.1 H (0.0-7.3) % Chloride (98-107) mmol/L BUN (7-17) mg/dL Glucose (65-100) mg/dL POC Glucose 361 H 261 H (70-105) 09/24/18 09/24/18 09/24/18 Range/Units 06:09 08:07 12:06 RBC (3.65-5.03) M/mm3 Hgb (10.1-14.3) gm/dl Hct (30.3-42.9) % MCV (79-97) fl MCH (28-32) pg [place] % (Auto) (0.0-7.3) % Chloride 110.8 H (98-107) mmol/L BUN 18 H (7-17) mg/dL Glucose 135 H (65-100) mg/dL POC Glucose 130 H 154 H (70-105)
[2018-09-24] MEDS: D5/0.45NS 1,000 ML IV SCH (17:02)
[2018-09-24] MEDS: PROTONIX PO SCH (22:43)
[2018-09-24] MEDS: ARICEPT PO SCH (22:43)
[2018-09-25 07:14] LABS: Basophils % (Auto) 0.2 % (0.0-1.8); Eosinophils % (Auto) 0.3 % (0.0-4.3); Hematocrit 21.1 % (30.3-42.9); Lymphocytes # (Auto) 1.2 K/mm3 (1.2-5.4); Lymphocytes % (Auto) 20.6 % (13.4-35.0); Mean Corpuscular HGB Conc 33 % (30-34); Mean Corpuscular Volume 98 fl (79-97); Monocytes # (Auto) 0.6 K/mm3 (0.0-0.8); Monocytes % (Auto) 10.3 % (0.0-7.3); Platelet Count 152 K/mm3 (140-440); Red Blood Count 2.14 M/mm3 (3.65-5.03); Red Cell Distribution Width 13.8 % (13.2-15.2)
[2018-09-25 07:31] LABS: BUN/Creatinine Ratio 25; Blood Urea Nitrogen 20 mg/dL (7-17); Calcium 8.5 mg/dL (8.4-10.2); Hemolysis Index 0
[2018-09-25] MEDS: HumuLIN R SUB-Q SCH ×3 (09:04→23:45)
[2018-09-25] MEDS: ZESTRIL PO SCH (09:09)
[2018-09-25] MEDS: PROTONIX PO SCH ×2 (09:09→23:46)
[2018-09-25] MEDS: IMDUR PO SCH (09:09)
[2018-09-25] MEDS: TENORMIN PO SCH (09:10)
[2018-09-25] MEDS: CATAPRES PO SCH ×2 (09:14→23:46)
[2018-09-25] MEDS ORDERED: NACL 0.9% 1000 ML 1,000 ML ONE (14:06)
[2018-09-25] MEDS ORDERED: NACL 0.9% 500 ML 500 ML IV ONE ×2 (14:20→16:00)
--- NOTE | 2018-09-25 14:51 | Event Note ---
Date: 09/25/18 Code Med called. Pt seen and evaluated and found to be in respiratory distress and unable to protect her airway. Pt intubated, and placed on vent support. Pt transferred to ICU. Pulmonary team consulted. Pt transfused PRBC. Discussed patient status with family. Pt family acknowledge understanding and agreement with care plan. Chest x ray reviewed. Labs reviewed. Pt critically ill and has poor prognosis. Will continue current therapy. 60min critical care time.
[2018-09-25] MEDS ORDERED: D50W (25GM) Syringe IV PRN (14:55)
--- NOTE | 2018-09-25 15:24 | Consultation ---
History of Present Illness Consult date: 09/25/18 Requesting physician: SYLVIA KNOX Reason for consult: other (Acute Hypoxemic Respiratory Failure; Acute Encephalopathy\) History of present illness: PULMONARY/CCM CONSULT NOTE (Full dictation # [id number]) Please see dictated notes for full details Past History Past Medical History: other (CAD/[place], anemia, diabetes, hypertension, hyperlipidemia, diverticular bleeding,stroke, dementia ) Past Surgical History: Other (hysterectomy, bilateral knee surgery, PTCA, cscope/EGD) Social history: other ([facility] resident). denies: smoking, alcohol abuse Medications and Allergies Allergies Allergy/AdvReac Type Severity Reaction Status Date / Time aspirin Allergy Hives Verified 09/19/18 14:52 codeine Allergy Itching Verified 09/19/18 14:52 Home Medications Medication Instructions Recorded Confirmed Last Taken Type AtorvaSTATin [Lipitor] 20 mg PO QHS #30 tablet 04/18/18 09/19/18 05/13/18 22:00 Rx ISOSORBIDE MONOnitrate [Imdur ER] 60 mg PO QDAY #30 tablet 04/18/18 09/19/18 05/14/18 10:00 Rx Aspirin EC 81 mg PO QDAY #30 tablet. 05/17/18 09/19/18 Unknown Rx Atenolol [Tenormin] 50 mg PO QDAY tablet 05/17/18 09/19/18 Unknown Rx Acetaminophen [Tylenol] 650 mg PO Q4HR PRN 09/19/18 09/19/18 Unknown History Cetirizine HCl [Zyrtec 10mg tab] 10 mg PO QDAY PRN 09/19/18 09/19/18 Unknown History Donepezil [Aricept] 5 mg PO HS 09/19/18 09/19/18 Unknown History Insulin Aspart [Novolog] See Protocol SUB-Q BID 09/19/18 09/19/18 Unknown History Lisinopril [Zestril TAB] 40 mg PO QDAY 09/19/18 09/19/18 Unknown History Meloxicam [Mobic] 15 mg PO QDAY 09/19/18 09/19/18 Unknown History cloNIDine [Catapres] 0.1 mg PO Q12H 09/19/18 09/19/18 Unknown History traMADol [Ultram] 50 mg PO Q8HR PRN 09/19/18 09/19/18 Unknown History Active Meds: Active Medications Acetaminophen (Tylenol) 650 mg PO Q4H PRN PRN Reason: Pain, Mild (1-3) Last Admin: 09/23/18 09:47 Dose: 650 mg Documented by: Atenolol (Tenormin) 50 mg PO QDAY RIRI Last Admin: 09/25/18 09:10 Dose: 50 mg Documented by: Atorvastatin Calcium (Lipitor) 20 mg PO QHS RIRI Last Admin: 09/24/18 22:42 Dose: 20 mg Documented by: Clonidine HCl (Catapres) 0.1 mg PO Q12H RIRI Last Admin: 09/25/18 09:14 Dose: 0.1 mg Documented by: Dextrose (D50w (25gm) Syringe) 50 ml IV PRN PRN PRN Reason: Hypoglycemia Donepezil HCl (Aricept) 5 mg PO HS RIRI Last Admin: 09/24/18 22:43 Dose: 5 mg Documented by: Hydralazine HCl (Apresoline) 20 mg IV Q4H PRN PRN Reason: Blood Pressure Last Admin: 09/23/18 05:40 Dose: 20 mg Documented by: Sodium Chloride (Nacl 0.9% 500 Ml) 500 mls @ 50 mls/hr IV DIRECT RIRI Last Admin: 09/22/18 15:58 Dose: 50 mls/hr Documented by: Dextrose/Sodium Chloride (D5/0.45ns) 1,000 mls @ 42 mls/hr IV DIRECT RIRI Last Admin: 09/24/18 17:02 Dose: 42 mls/hr Documented by: Sodium Chloride (Nacl 0.9% 500 Ml) 500 mls @ 0 mls/hr IV ONCE ONE Stop: 09/25/18 16:01 Sodium Chloride (Nacl 0.9% 1000 Ml) 1,000 mls @ 999 mls/hr IV BOLUS ONE Stop: 09/25/18 17:00 Sodium Chloride (Nacl 0.9% 1000 Ml) 1,000 mls @ 75 mls/hr IV DIRECT RIRI Insulin Human Regular (Humulin R) 0 units SUB-Q ACHS RIRI; Protocol Last Admin: 09/25/18 09:04 Dose: 3 units Documented by: Isosorbide Mononitrate (Imdur) 60 mg PO QDAY [facility] Last Admin: 09/25/18 09:09 Dose: 60 mg Documented by: Lisinopril (Zestril) 40 mg PO QDAY RIRI Last Admin: 09/25/18 09:09 Dose: 40 mg Documented by: Loratadine (Claritin) 10 mg PO DAILY PRN PRN Reason: Allergy Symptoms Last Admin: 09/21/18 17:48 Dose: 10 mg Documented by: Pantoprazole Sodium (Protonix) 40 mg PO BID [facility] Last Admin: 09/25/18 09:09 Dose: 40 mg Documented by: Tramadol HCl (Ultram) 50 mg PO Q8H PRN PRN Reason: Pain, Moderate (4-6) Physical Examination Vital signs: Vital Signs Pulse Resp BP Pulse Ox 77 16 115/70 98 09/19/18 14:48 09/19/18 14:48 09/19/18 14:48 09/19/18 14:48 Results - Laboratory Findings CBC and BMP: 09/25/18 14:56 09/25/18 06:05 PT/INR, D-dimer PT 13.4 Sec. (12.2-14.9) 09/19/18 16:34 INR 1.05 (0.87-1.13) 09/19/18 16:34 Abnormal lab findings: Abnormal Labs 09/19/18 09/19/18 09/19/18 15:11 15:11 16:01 WBC 3.7 L RBC 2.85 L Hgb 9.6 L Hct 28.0 L MCV 99 H MCH 34 H MCHC RDW 12.7 L Plt Count Lymph % (Auto) 41.9 H [place] % (Auto) 14.9 H [place] # Seg Neutrophils % Seg Neutrophils # 1.5 L Sodium Chloride 107.9 H BUN 23 H Glucose 191 H POC Glucose Ur Specific [place] 1.031 H Crossmatch 09/19/18 09/19/18 09/20/18 21:01 21:10 00:22 WBC RBC 2.39 L Hgb 8.1 L Hct 23.6 L MCV 99 H MCH 34 H MCHC RDW 12.5 L Plt Count Lymph % (Auto) [place] % (Auto) 9.9 H [place] # Seg Neutrophils % Seg Neutrophils # Sodium Chloride BUN Glucose POC Glucose 229 H Ur Specific [place] Crossmatch See Detail 09/20/18 09/20/18 09/20/18 06:11 06:15 08:17 WBC RBC 2.27 L Hgb 7.6 L Hct 22.4 L MCV 99 H MCH 34 H MCHC RDW 12.7 L Plt Count Lymph % (Auto) 35.1 [place] % (Auto) 11.4 H [place] # Seg Neutrophils % Seg Neutrophils # Sodium Chloride BUN Glucose POC Glucose 246 H 253 H Ur Specific [place] Crossmatch 09/20/18 09/20/18 09/20/18 11:52 17:17 21:10 WBC RBC Hgb Hct MCV MCH MCHC RDW Plt Count Lymph % (Auto) [place] % (Auto) [place] # Seg Neutrophils % Seg Neutrophils # Sodium Chloride BUN Glucose POC Glucose 278 H 241 H 245 H Ur Specific [place] Crossmatch 09/21/18 09/21/18 09/21/18 05:15 07:43 16:35 WBC RBC 3.35 L Hgb Hct MCV MCH 33 H MCHC 35 H RDW Plt Count 134 L Lymph % (Auto) [place] % (Auto) 12.4 H [place] # 1.0 H Seg Neutrophils % Seg Neutrophils # Sodium Chloride BUN Glucose POC Glucose 278 H 237 H Ur Specific [place] Crossmatch 09/21/18 09/21/18 09/22/18 19:20 19:42 01:05 WBC RBC 2.66 L 2.43 L Hgb 8.7 L 8.0 L Hct 25.9 L D 23.4 L MCV MCH 33 H 33 H MCHC RDW Plt Count 137 L 127 L Lymph % (Auto) 12.7 L [place] % (Auto) 11.0 H [place] # 1.1 H Seg Neutrophils % 75.8 H Seg Neutrophils # Sodium Chloride BUN Glucose POC Glucose 264 H Ur Specific [place] Crossmatch 09/22/18 09/22/18 09/22/18 05:20 07:29 11:48 WBC RBC 2.43 L Hgb 8.0 L Hct 23.4 L MCV MCH 33 H MCHC RDW Plt Count 118 L Lymph % (Auto) [place] % (Auto) 14.0 H [place] # 1.1 H Seg Neutrophils % Seg Neutrophils # Sodium Chloride BUN Glucose POC Glucose 335 H 300 H Ur Specific [place] Crossmatch 09/22/18 09/22/18 09/23/18 16:55 21:04 04:52 WBC 4.4 L RBC 2.40 L Hgb 8.0 L Hct 23.4 L MCV 98 H MCH 33 H MCHC RDW Plt Count 115 L Lymph % (Auto) [place] % (Auto) 12.2 H [place] # Seg Neutrophils % Seg Neutrophils # Sodium Chloride BUN Glucose POC Glucose 340 H 285 H Ur Specific [place] Crossmatch 09/23/18 09/23/18 09/23/18 04:52 07:33 11:23 WBC RBC Hgb Hct MCV MCH MCHC RDW Plt Count Lymph % (Auto) [place] % (Auto) [place] # Seg Neutrophils % Seg Neutrophils # Sodium Chloride 110.6 H BUN 19 H Glucose 220 H POC Glucose 216 H 307 H Ur Specific [place] Crossmatch 09/23/18 09/23/18 09/24/18 16:23 20:33 06:09 WBC RBC 2.47 L Hgb 8.0 L Hct 24.8 L MCV 100 H MCH 33 H MCHC RDW Plt Count Lymph % (Auto) [place] % (Auto) 11.1 H [place] # Seg Neutrophils % Seg Neutrophils # Sodium Chloride BUN Glucose POC Glucose 361 H 261 H Ur Specific [place] Crossmatch 09/24/18 09/24/18 09/24/18 06:09 08:07 12:06 WBC RBC Hgb Hct MCV MCH MCHC RDW Plt Count Lymph % (Auto) [place] % (Auto) [place] # Seg Neutrophils % Seg Neutrophils # Sodium Chloride 110.8 H BUN 18 H Glucose 135 H POC Glucose 130 H 154 H Ur Specific [place] Crossmatch 09/24/18 09/24/18 09/25/18 16:47 20:55 06:05 WBC RBC 2.14 L Hgb 7.0 L Hct 21.1 L MCV 98 H MCH 33 H MCHC RDW Plt Count Lymph % (Auto) [place] % (Auto) 10.3 H [place] # Seg Neutrophils % Seg Neutrophils # Sodium Chloride BUN Glucose POC Glucose 190 H 233 H Ur Specific [place] Crossmatch 09/25/18 09/25/18 09/25/18 06:05 08:06 11:13 WBC RBC Hgb Hct MCV MCH MCHC RDW Plt Count Lymph % (Auto) [place] % (Auto) [place] # Seg Neutrophils % Seg Neutrophils # Sodium 146 H Chloride 112.6 H BUN 20 H Glucose 243 H POC Glucose 248 H 274 H Ur Specific [place] Crossmatch
[2018-09-25 15:35] LABS: Hematocrit 22.5 % (30.3-42.9); Hemoglobin 7.6 gm/dl (10.1-14.3); Mean Corpuscular HGB Conc 34 % (30-34); Mean Corpuscular Volume 97 fl (79-97); Platelet Count 154 K/mm3 (140-440); Red Blood Count 2.31 M/mm3 (3.65-5.03); Red Cell Distribution Width 13.2 % (13.2-15.2)
[2018-09-25] MEDS ORDERED: SUBLIMAZE IV PRN (15:39)
[2018-09-25] MEDS ORDERED: ARTIFICIAL TEARS OPHTH OINT OU PRN (15:39)
[2018-09-25] MEDS ORDERED: VASELINE LIP THERAPY TP PRN (15:39)
[2018-09-25] MEDS ORDERED: fentaNYL DRIP Premix 2,000 MCG/100 ML BAG IV SCH (16:00)
[2018-09-25] MEDS ORDERED: NACL 0.9% 1000 ML 1,000 ML IV ONE (16:00)
[2018-09-25] MEDS ORDERED: NACL 0.9% 1000 ML 1,000 ML IV SCH (16:00)
--- NOTE | 2018-09-25 16:12 | Procedure Note ---
Date of procedure: 09/25/18 Pre-op diagnosis: respiratory faiure Post-op diagnosis: same Procedure: RIJV Central Line Placement under Ultrasound Guidance Timeout was taken to verify correct patient, procedure, and operative site. Pt was prepped and draped in the usual sterile fashion. RIJV identified with ultrasound. Local anesthesia obtained with lidocaine 1%. Seldinger technique utilized to access the RIJV with seeker needle without difficulty. A guidewire was advanced into the RIJV and the seeker needle removed over the guidewire. A scalpel was used to incise the skin, and a dilator was passed over the guidewire then removed. A preflushed triple lumen catheter was then advanced into the RIJV and the guidewire removed. Triple lumen sewn in place, and a biopatch placed at insertion site. All 3 ports flush and draw with ease. Postop Chest X ray did not reveal pneumothorax. EBL: Minimal Specimen:none Anesthesia: local Surgeon: SYLVIA KNOX Estimated blood loss: minimal Pathology: none Condition: critical Disposition: ICU
--- NOTE | 2018-09-25 16:38 | XRay Report ---
CHEST 1 VIEW INDICATION / CLINICAL INFORMATION: Chest pain with dyspnea. COMPARISON: None available. FINDINGS: SUPPORT DEVICES: Right mainstem bronchus intubation. This was subsequently withdrawn on subsequent im ages.. HEART / MEDIASTINUM: No significant abnormality. LUNGS / PLEURA: No significant pulmonary or pleural abnormality. No pneumothorax. Signer Name: Meño Brandt MD Signed: 09/25/2018 4:34 PM Workstation Name: [id number]
--- NOTE | 2018-09-25 16:41 | XRay Report ---
CHEST 1 VIEW INDICATION / CLINICAL INFORMATION: Chest pain with dyspnea. COMPARISON: None available. FINDINGS: SUPPORT DEVICES: Endotracheal tube terminates about 1 cm above the kalina and should be withdrawn 2 t o 3 cm.. Right IJ central venous line terminates at the SVC/right atrial junction. HEART / MEDIASTINUM: No significant abnormality. LUNGS / PLEURA: Mild basilar atelectasis along the left lower lung. Small left pleural effusion. Signer Name: Meño Brandt MD Signed: 09/25/2018 4:37 PM Workstation Name: [id number]
--- NOTE | 2018-09-25 16:53 | Emergency Department Report ---
ED General Adult HPI - General Chief complaint: GI Bleed Stated complaint: GI BLEED Time Seen by Provider: 09/19/18 15:34 Source: patient, EMS (ems notes not available at time of chart dictation), RN notes reviewed Mode of arrival: Stretcher Limitations: Physical Limitation, Other (patient is demented. Patient is a poor historian.) - History of Present Illness Severity scale (0 -10): 0 Quality: other Improves with: other Worsens with: other - Related Data Home Medications Medication Instructions Recorded Confirmed Last Taken Acetaminophen [Tylenol] 650 mg PO Q4HR PRN 09/19/18 09/19/18 Unknown Cetirizine HCl [Zyrtec 10mg tab] 10 mg PO QDAY PRN 09/19/18 09/19/18 Unknown Donepezil [Aricept] 5 mg PO HS 09/19/18 09/19/18 Unknown Insulin Aspart [Novolog] See Protocol SUB-Q BID 09/19/18 09/19/18 Unknown Lisinopril [Zestril TAB] 40 mg PO QDAY 09/19/18 09/19/18 Unknown Meloxicam [Mobic] 15 mg PO QDAY 09/19/18 09/19/18 Unknown cloNIDine [Catapres] 0.1 mg PO Q12H 09/19/18 09/19/18 Unknown traMADol [Ultram] 50 mg PO Q8HR PRN 09/19/18 09/19/18 Unknown Previous Rx's Medication Instructions Recorded Last Taken Type AtorvaSTATin [Lipitor] 20 mg PO QHS #30 tablet 04/18/18 05/13/18 22:00 Rx ISOSORBIDE MONOnitrate [Imdur ER] 60 mg PO QDAY #30 tablet 04/18/18 05/14/18 10:00 Rx Aspirin EC 81 mg PO QDAY #30 tablet. 05/17/18 Unknown Rx Atenolol [Tenormin] 50 mg PO QDAY tablet 05/17/18 Unknown Rx Allergies Allergy/AdvReac Type Severity Reaction Status Date / Time aspirin Allergy Hives Verified 09/19/18 14:52 codeine Allergy Itching Verified 09/19/18 14:52 ED Review of Systems ROS: Stated complaint: GI BLEED Other details as noted in HPI Gastrointestinal: abdominal pain, hematochezia Neurological: confusion ED Past Medical Hx - Past Medical History Previous Medical History?: Yes Hx Hypertension: Yes Hx CVA: Yes Hx Heart Attack/AMI: Yes Hx Congestive Heart Failure: No Hx Diabetes: Yes Hx Deep Vein Thrombosis: No Hx Pulmonary Embolism: No Hx GERD: Yes Hx Liver Disease: No Hx Renal Disease: No Hx Sickle Cell Disease: No Hx Arthritis: Yes Hx Seizures: No Hx Kidney Stones: No Hx Psychiatric Treatment: No Hx Asthma: Yes Hx COPD: No Hx Tuberculosis: No Hx Dementia: Yes Hx HIV: No Additional medical history: has had transfusions in the past, Gi bleed - Surgical History Past Surgical History?: Yes Hx Coronary Stent: Yes Hx Open Heart Surgery: No Hx Pacemaker: No Hx Internal Defibrillator: No Hx Cholecystectomy: No Hx Appendectomy: No Hx Breast Surgery: No Additional Surgical History: hysterectomy, bilateral knee surgery, - Social History Smoking Status: Never Smoker - Medications Home Medications: Home Medications Medication Instructions Recorded Confirmed Last Taken Type AtorvaSTATin [Lipitor] 20 mg PO QHS #30 tablet 04/18/18 09/19/18 05/13/18 22:00 Rx ISOSORBIDE MONOnitrate [Imdur ER] 60 mg PO QDAY #30 tablet 04/18/18 09/19/18 05/14/18 10:00 Rx Aspirin EC 81 mg PO QDAY #30 tablet. 05/17/18 09/19/18 Unknown Rx Atenolol [Tenormin] 50 mg PO QDAY tablet 05/17/18 09/19/18 Unknown Rx Acetaminophen [Tylenol] 650 mg PO Q4HR PRN 09/19/18 09/19/18 Unknown History Cetirizine HCl [Zyrtec 10mg tab] 10 mg PO QDAY PRN 09/19/18 09/19/18 Unknown History Donepezil [Aricept] 5 mg PO HS 09/19/18 09/19/18 Unknown History Insulin Aspart [Novolog] See Protocol SUB-Q BID 09/19/18 09/19/18 Unknown History Lisinopril [Zestril TAB] 40 mg PO QDAY 09/19/18 09/19/18 Unknown History Meloxicam [Mobic] 15 mg PO QDAY 09/19/18 09/19/18 Unknown History cloNIDine [Catapres] 0.1 mg PO Q12H 09/19/18 09/19/18 Unknown History traMADol [Ultram] 50 mg PO Q8HR PRN 09/19/18 09/19/18 Unknown History ED Physical Exam - General Limitations: Physical Limitation, Other (patient is demented. Patient is a poor historian.) General appearance: alert, in no apparent distress, other (confusion) ED Course Vital Signs 09/19/18 09/19/18 09/19/18 14:48 15:38 16:00 Temperature 98.7 F Pulse Rate 77 74 Respiratory 16 18 17 Rate Blood Pressure 115/70 Blood Pressure 134/69 [Right] O2 Sat by Pulse 98 99 Oximetry 09/19/18 09/19/18 09/19/18 16:02 16:52 18:00 Temperature Pulse Rate 74 72 78 Respiratory 17 18 18 Rate Blood Pressure Blood Pressure 131/65 112/68 152/60 [Right] O2 Sat by Pulse 99 100 99 Oximetry 09/19/18 09/19/18 18:38 19:23 Temperature 97.4 F L Pulse Rate 74 71 Respiratory 17 18 Rate Blood Pressure 102/53 Blood Pressure 139/65 [Right] O2 Sat by Pulse 99 99 Oximetry - Intubation Time Out Performed: Yes Sedative: Etomidate Paralytic: Rocuronium Laryngoscope: Jase Size: 4 ET Tube Size: 8 Tube Secured Depth (cm): 23 Tube Secured Location: teeth Tube Placement Confirmation: visualized tube passing t, equal breath sounds bilat, no breath sounds over epi, confirmation by capnometr Patient Tolerated Procedure: well, no complications Intubation Complications: none ED Medical Decision Making - Lab Data Result diagrams: 09/25/18 14:56 09/25/18 06:05 Critical care attestation.: If time is entered above; I have spent that time in minutes in the direct care of this critically ill patient, excluding procedure time. ED Disposition Clinical Impression: Respiratory failure with hypoxia Qualifiers: Chronicity: unspecified Qualified Code(s): J96.91 - Respiratory failure, unspecified with hypoxia Disposition: OP ADMIT IP TO THIS HOSP Is pt being admited?: Yes Condition: Fair
--- NOTE | 2018-09-25 18:05 | Progress Note ---
Assessment and Plan - Patient Problems (1) Diverticular hemorrhage Current Visit: No Status: Acute Plan to address problem: At the moment, her more pressing issue is the concern for a new stroke. As for her diverticular bleed, her hemoglobin was down today and she had 1 melanotic stool. If she has further bloody bowel movements or her hemoglobins continue to fall, would recommend a tagged red cell scan to try and identify the source of the bleeding. Thereafter, would need interventional radiology to try and embolize the bleed. Please call with questions. time=10min Subjective Date of service: 09/25/18 Patient Reports: Positive: other (Pt transferred to ICU and intubated for respiratory failure. Records indicate melanotic BM this AM. No further BMs today. Staff concerned about possible stroke) Objective Vital Signs - 12hr 09/25/18 09/25/18 09/25/18 07:40 08:03 08:53 Temperature 98.2 F 98.4 F Pulse Rate 78 75 Respiratory 18 18 Rate Blood Pressure 124/34 153/49 O2 Sat by Pulse 100 Oximetry 09/25/18 09/25/18 09/25/18 09:09 09:10 09:14 Temperature Pulse Rate 78 Respiratory Rate Blood Pressure 153/49 153/49 153/49 O2 Sat by Pulse Oximetry 09/25/18 09/25/18 09/25/18 11:09 16:00 16:06 Temperature 98.2 F 97.1 F L Pulse Rate 70 93 H Respiratory 18 Rate Blood Pressure 133/60 220/103 O2 Sat by Pulse 99 100 Oximetry - General physical appearance no distress, no pain, other (minimally responsive. No moving her left side. ) - Respiratory normal expansion, normal respiratory effort - Abdomen soft, not tender, not distended - Integumentary no rash, no growths, no abnormal pigmentation - Labs 09/25/18 14:56 09/25/18 06:05 Diabetes panel 09/25/18 Range/Units 06:05 Sodium 146 H (137-145) mmol/L Potassium 4.6 (3.6-5.0) mmol/L Chloride 112.6 H (98-107) mmol/L Carbon Dioxide 22 (22-30) mmol/L BUN 20 H (7-17) mg/dL Creatinine 0.8 (0.7-1.2) mg/dL Glucose 243 H (65-100) mg/dL Calcium 8.5 (8.4-10.2) mg/dL Calcium panel 09/25/18 Range/Units 06:05 Calcium 8.5 (8.4-10.2) mg/dL Pituitary panel 09/25/18 Range/Units 06:05 Sodium 146 H (137-145) mmol/L Potassium 4.6 (3.6-5.0) mmol/L Chloride 112.6 H (98-107) mmol/L Carbon Dioxide 22 (22-30) mmol/L BUN 20 H (7-17) mg/dL Creatinine 0.8 (0.7-1.2) mg/dL Glucose 243 H (65-100) mg/dL Calcium 8.5 (8.4-10.2) mg/dL Adrenal panel 09/25/18 Range/Units 06:05 Sodium 146 H (137-145) mmol/L Potassium 4.6 (3.6-5.0) mmol/L Chloride 112.6 H (98-107) mmol/L Carbon Dioxide 22 (22-30) mmol/L BUN 20 H (7-17) mg/dL Creatinine 0.8 (0.7-1.2) mg/dL Glucose 243 H (65-100) mg/dL Calcium 8.5 (8.4-10.2) mg/dL
[2018-09-25] MEDS ORDERED: ZEMURON IV ONE (19:25)
[2018-09-25] MEDS ORDERED: AMIDATE IV ONE (19:25)
--- NOTE | 2018-09-25 20:19 | Cat Scan Report ---
CT head without contrast INDICATION : Acute onset left-sided paresthesias. Code stroke. TECHNIQUE: Axial imaging performed from the skull apex through the skull base without the use of con trast. All CT examinations performed at this facility utilize dose modulation, iterative reconstruct ion or weight-based dosing, when appropriate, to reduce radiation dose to as low as reasonably achiev able. COMPARISON: None FINDINGS: There is a large subacute right CELIO distribution infarct in a acute appearing right MCA dis tribution infarct with loss of clements-white junction involving the right frontal lobe and some of the i nsular cortex. No acute intracranial hemorrhage is identified. Chronic appearing encephalomalacia is identified involving the posterior parietal aspect of the cerebrum, similar to 08/24/2018. The orbits are unremarkable. Paranasal sinuses demonstrate small fluid. IMPRESSION: Subacute right CELIO distribution infarct with probable acute right MCA distribution infarc t without acute intracranial hemorrhage. CRITICAL RESULT: Time of Discovery: 7:05 PM on the day of the exam Time of Communication: 7:10 PM on the day of the exam Licensed Practitioner Receiving Report: Rei CARVAJAL Read Back Performed: Yes. Signer Name: Meño Brandt MD Signed: 09/25/2018 8:15 PM Workstation Name: [id number]
--- NOTE | 2018-09-25 22:17 | Progress Note ---
Assessment and Plan - Patient Problems (1) LGI bleed Current Visit: Yes Plan to address problem: Follow GI , monitor labs. notes reviewed from GI. this is severe diverticular dz., not amendable to surgery. See notes above. None in the last 24hrs. (2) Dementia Current Visit: Yes Status: Chronic Qualifiers: Alzheimer's disease onset: unspecified onset Dementia behavioral disturbance: without behavioral disturbance Plan to address problem: supportive care. (3) Abdominal pain Current Visit: Yes Status: Acute Plan to address problem: Await scope. resolved. (4) Anemia Current Visit: Yes Status: Acute Plan to address problem: Monitor labs PRN. Transfusion, as necessary. same as above. 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 Subjective Date of service: 09/25/18 Principal diagnosis: acute GI bleed. Interval history: Patient seen/examined, resting in bed, labs/ notes/consults reviewed. Patient scheduled for a scope tomorrow.I have given some transfusion, and will do H/h q6hrs. Patient seen/examined, resting in bed, labs/ operative notes reviewed.Will r estart on IVF, and restart diet tomorrow. Patient seen/examined, resting in bed, notes/labs reviewed. i had spoken to her daughter yesterday, with full update. She is not keen to any aggressive measu res, ophelia surgery. She is contemplating AND/vs hospice.She was suppose to think about it, and let us know.Will continue with supportive care for now. Patient seen/examined, resting in bed, labs reviewed. No active bleeding. GI/Surgery notes reviewed also. Patient seen/examined, resting in bed, notes/labs reviewed.No report of any active bleeding at this time. If this remains this way, will discharge back to the MD 2days ,or so. patient seen/examined, resting in bed, Had a code blue called earlier, and transfered to the unit, and intubated. Ct with contrast showed sub acute CELIO distribution stroke, and acute non hemorrhagic CVA. will consult neurology contact manager.Hgb dropped by less than a gram, from yesterday, obviously still bleeding. Once feasible, will do red cell tagged scan., and possibly IR intervention, with Embolization of the offending vessel, depending on how far the family wants to go.For now, will continue with replacement blood transfusion. Objective - Constitutional Vitals: Vital Signs - 12hr 09/25/18 09/25/18 09/25/18 11:09 14:56 15:00 Temperature 98.2 F Pulse Rate 70 118 H 117 H Respiratory 18 18 19 Rate Blood Pressure 133/60 182/95 O2 Sat by Pulse 99 95 47 L Oximetry 09/25/18 09/25/18 09/25/18 15:11 15:21 15:31 Temperature Pulse Rate 110 H 81 80 Respiratory 22 14 19 Rate Blood Pressure 178/90 178/90 O2 Sat by Pulse 100 100 Oximetry 09/25/18 09/25/18 09/25/18 15:41 15:51 16:00 Temperature 97.1 F L Pulse Rate 82 94 H 112 H Respiratory 18 18 18 Rate Blood Pressure 178/90 178/90 237/118 O2 Sat by Pulse 100 100 100 Oximetry 09/25/18 09/25/18 09/25/18 16:06 16:11 16:21 Temperature Pulse Rate 93 H 108 H 100 H Respiratory 17 14 Rate Blood Pressure 220/103 237/118 231/108 O2 Sat by Pulse 100 100 100 Oximetry 09/25/18 09/25/18 09/25/18 16:30 16:41 16:51 Temperature Pulse Rate 93 H 94 H 94 H Respiratory 18 19 16 Rate Blood Pressure 202/109 202/109 202/94 O2 Sat by Pulse 100 100 Oximetry 09/25/18 09/25/18 09/25/18 17:00 17:11 17:21 Temperature Pulse Rate 94 H 94 H 96 H Respiratory 16 18 21 Rate Blood Pressure 207/103 207/103 221/107 O2 Sat by Pulse 69 L Oximetry 09/25/18 09/25/18 09/25/18 17:30 17:41 17:51 Temperature Pulse Rate 96 H 79 99 H Respiratory 19 20 20 Rate Blood Pressure 218/81 218/81 183/77 O2 Sat by Pulse 98 91 83 L Oximetry 09/25/18 09/25/18 09/25/18 18:00 18:11 18:38 Temperature Pulse Rate 95 H 80 Respiratory 15 16 Rate Blood Pressure 190/70 190/70 O2 Sat by Pulse 100 100 84 Oximetry 09/25/18 09/25/18 09/25/18 18:41 18:51 19:01 Temperature Pulse Rate 100 H 79 85 Respiratory 18 19 16 Rate Blood Pressure 182/76 174/65 O2 Sat by Pulse 100 95 Oximetry 09/25/18 09/25/18 09/25/18 19:11 19:21 19:31 Temperature Pulse Rate 78 78 83 Respiratory 19 18 21 Rate Blood Pressure 174/65 158/66 179/65 O2 Sat by Pulse 87 97 Oximetry 09/25/18 09/25/18 09/25/18 19:41 19:50 20:00 Temperature Pulse Rate 80 78 80 Respiratory 17 23 22 Rate Blood Pressure 179/65 153/65 161/47 O2 Sat by Pulse 100 100 98 Oximetry 09/25/18 09/25/18 09/25/18 20:11 20:21 20:30 Temperature Pulse Rate 80 80 79 Respiratory 19 19 20 Rate Blood Pressure 161/47 153/65 167/62 O2 Sat by Pulse 99 83 L 100 Oximetry 09/25/18 09/25/18 09/25/18 20:41 20:51 21:00 Temperature Pulse Rate 78 78 78 Respiratory 19 20 19 Rate Blood Pressure 167/62 142/61 133/55 O2 Sat by Pulse 100 100 Oximetry 09/25/18 09/25/18 09/25/18 21:11 21:21 21:26 Temperature 99.2 F Pulse Rate 76 76 76 Respiratory 20 18 18 Rate Blood Pressure 133/55 142/61 131/49 O2 Sat by Pulse 100 100 100 Oximetry 09/25/18 09/25/18 09/25/18 21:30 21:41 21:51 Temperature 99.3 F Pulse Rate 76 78 77 Respiratory 18 20 19 Rate Blood Pressure 145/55 145/55 168/65 O2 Sat by Pulse 99 100 97 Oximetry 09/25/18 09/25/18 22:01 22:08 Temperature 98.9 F Pulse Rate 76 74 Respiratory 19 18 Rate Blood Pressure 157/55 157/55 O2 Sat by Pulse 100 100 Oximetry General appearance: Present: mild distress - EENT Eyes: PERRL, EOM intact ENT: hearing intact, clear oral mucosa Ears: bilateral: normal - Neck Neck: supple, normal ROM - Respiratory Respiratory: bilateral: other (Intubated) - Breasts Breasts: deferred - Cardiovascular Rhythm: regular Heart Sounds: Present: S1 & S2. Absent: gallop, rub Extremities: pulses intact, No edema, normal color, Full ROM - Gastrointestinal General gastrointestinal: Present: soft, non-tender, non-distended, normal bowel sounds Rectal Exam: deferred - Genitourinary Female genitourinary: deferred - Integumentary Integumentary: clear, warm, dry - Musculoskeletal Musculoskeletal: 1, strength equal bilaterally - Labs CBC & Chem 7: 09/25/18 14:56 09/25/18 06:05 Labs: Abnormal lab results 09/19/18 09/25/18 09/25/18 Range/Units 21:10 06:05 06:05 RBC 2.14 L (3.65-5.03) M/mm3 Hgb 7.0 L (10.1-14.3) gm/dl Hct 21.1 L (30.3-42.9) % MCV 98 H (79-97) fl MCH 33 H (28-32) pg [place] % (Auto) 10.3 H (0.0-7.3) % Sodium 146 H (137-145) mmol/L Chloride 112.6 H (98-107) mmol/L BUN 20 H (7-17) mg/dL Glucose 243 H (65-100) mg/dL POC Glucose (70-105) Crossmatch See Detail 09/25/18 09/25/18 09/25/18 Range/Units 08:06 11:13 14:56 RBC 2.31 L (3.65-5.03) M/mm3 Hgb 7.6 L (10.1-14.3) gm/dl Hct 22.5 L (30.3-42.9) % MCV (79-97) fl MCH 33 H (28-32) pg [place] % (Auto) (0.0-7.3) % Sodium (137-145) mmol/L Chloride (98-107) mmol/L BUN (7-17) mg/dL Glucose (65-100) mg/dL POC Glucose 248 H 274 H (70-105) Crossmatch 09/25/18 09/25/18 Range/Units 15:05 22:04 RBC (3.65-5.03) M/mm3 Hgb (10.1-14.3) gm/dl Hct (30.3-42.9) % MCV (79-97) fl MCH (28-32) pg [place] % (Auto) (0.0-7.3) % Sodium (137-145) mmol/L Chloride (98-107) mmol/L BUN (7-17) mg/dL Glucose (65-100) mg/dL POC Glucose 333 H (70-105) Crossmatch See Detail
--- NOTE | 2018-09-25 23:12 | XRay Report ---
Abdomen AP portable 2228 INDICATION: Feeding tube placement Feeding tube extends well into the proximal stomach. Signer Name: Lester Urbina MD Signed: 09/25/2018 11:07 PM Workstation Name: [id number]
[2018-09-25] MEDS: ARICEPT PO SCH (23:46)
[2018-09-26 05:30] LABS: Basophils % (Auto) 0.1 % (0.0-1.8); Hematocrit 30.6 % (30.3-42.9); Hemoglobin 10.3 gm/dl (10.1-14.3); Lymphocytes # (Auto) 1.3 K/mm3 (1.2-5.4); Lymphocytes % (Auto) 10.2 % (13.4-35.0); Mean Corpuscular HGB Conc 34 % (30-34); Mean Corpuscular Volume 95 fl (79-97); Monocytes # (Auto) 1.5 K/mm3 (0.0-0.8); Monocytes % (Auto) 11.7 % (0.0-7.3); Platelet Count 145 K/mm3 (140-440); Red Blood Count 3.21 M/mm3 (3.65-5.03); Red Cell Distribution Width 14.1 % (13.2-15.2)
[2018-09-26 05:56] LABS: Alanine Aminotransferase 7 units/L (7-56); Albumin 3.2 g/dL (3.9-5); BUN/Creatinine Ratio 29; Blood Urea Nitrogen 20 mg/dL (7-17); Calcium 8.6 mg/dL (8.4-10.2); Hemolysis Index 4
[2018-09-26] MEDS: APRESOLINE IV PRN (06:14)
--- NOTE | 2018-09-26 09:57 | Progress Note ---
Assessment and Plan - Patient Problems (1) LGI bleed Current Visit: Yes Plan to address problem: Follow GI , monitor labs. notes reviewed from GI. this is severe diverticular dz., not amendable to surgery. See notes above. Had some evidence of loss. same as above. (2) Dementia Current Visit: Yes Status: Chronic Qualifiers: Alzheimer's disease onset: unspecified onset Dementia behavioral disturbance: without behavioral disturbance Plan to address problem: supportive care. (3) Abdominal pain Current Visit: Yes Status: Acute Plan to address problem: Await scope. resolved. (4) Anemia Current Visit: Yes Status: Acute Plan to address problem: Monitor labs PRN. Transfusion, as necessary. same as above. Stable, post bld transfusion. 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 Awaiting neurology eval. Subjective Date of service: 09/26/18 Principal diagnosis: acute GI bleed. Interval history: Patient seen/examined, resting in bed, labs/ notes/consults reviewed. Patient scheduled for a scope tomorrow.I have given some transfusion, and will do H/h q6hrs. Patient seen/examined, resting in bed, labs/ operative notes reviewed.Will restart on IVF, and restart diet tomorrow. Patient seen/examined, resting in bed, notes/labs reviewed. i had spoken to her daughter yesterday, with full update. She is not keen to any aggressive measures, ophelia surgery. She is contemplating AND/vs hospice.She was suppose to think about it, and let us know.Will continue with supportive care for now. Patient seen/examined, resting in bed, labs reviewed. No active bleeding. GI/ Surgery notes reviewed also. Patient seen/examined, resting in bed, notes/labs reviewed.No report of any active bleeding at this time. If this remains this way, will discharge back to the [facility] 2days ,or so. patient seen/examined, resting in bed, Had a code blue called earlier, and transfered to the unit, and intubated. Ct with contrast showed sub acute CELIO distribution stroke, and acute non hemorrhagic CVA. will consult neurology integration architect.Hgb dropped by less than a gram, from yesterday, obviously still bleeding. Once feasible, will do red cell tagged scan., and possibly IR intervention, with Embolization of the offending vessel, depending on how far the family wants to go.For now, will continue with replacement blood transfusion. Patient seen/examined, resting in bed, labs reviewed, and stable, post transfusion of 2units PRBC. Awaiting neurology eval/REC. Objective - Constitutional Vitals: Vital Signs - 12hr 09/25/18 09/25/18 09/25/18 22:01 22:08 22:11 Temperature 98.9 F Pulse Rate 76 74 74 Pulse Rate [ From Monitor] Respiratory 18 19 Rate Blood Pressure 157/55 157/55 157/55 O2 Sat by Pulse 100 100 100 Oximetry 09/25/18 09/25/18 09/25/18 22:21 22:31 22:40 Temperature 98.7 F Pulse Rate 74 77 82 Pulse Rate [ From Monitor] Respiratory 18 16 15 Rate Blood Pressure 149/50 158/49 158/49 O2 Sat by Pulse 100 91 98 Oximetry 09/25/18 09/25/18 09/25/18 22:41 22:51 23:00 Temperature Pulse Rate 78 76 75 Pulse Rate [ From Monitor] Respiratory 18 18 18 Rate Blood Pressure 158/49 177/64 163/62 O2 Sat by Pulse 99 100 100 Oximetry 09/25/18 09/25/18 09/25/18 23:02 23:11 23:21 Temperature 99.6 F Pulse Rate 74 73 Pulse Rate [ From Monitor] Respiratory 19 18 Rate Blood Pressure 187/69 177/64 O2 Sat by Pulse 100 100 Oximetry 09/25/18 09/25/18 09/25/18 23:24 23:31 23:35 Temperature 99.9 F H Pulse Rate 75 78 77 Pulse Rate [ From Monitor] Respiratory 18 18 Rate Blood Pressure 137/50 179/62 179/62 O2 Sat by Pulse 100 91 100 Oximetry 09/25/18 09/25/18 09/25/18 23:44 23:45 23:51 Temperature 99.6 F Pulse Rate 73 73 74 Pulse Rate [ From Monitor] Respiratory 18 18 18 Rate Blood Pressure 115/43 115/43 179/62 O2 Sat by Pulse 100 100 100 Oximetry 09/25/18 09/26/18 09/26/18 23:52 00:00 00:01 Temperature 99.6 F 99.6 F Pulse Rate 96 H 72 81 Pulse Rate [ 71 From Monitor] Respiratory 17 18 15 Rate Blood Pressure 179/62 111/51 111/51 O2 Sat by Pulse 100 100 100 Oximetry 09/26/18 09/26/18 09/26/18 00:14 00:15 00:30 Temperature 99.9 F H Pulse Rate 73 79 71 Pulse Rate [ From Monitor] Respiratory 19 17 18 Rate Blood Pressure 132/73 132/73 132/50 O2 Sat by Pulse 98 100 94 Oximetry 09/26/18 09/26/18 09/26/18 00:44 00:45 01:00 Temperature 99.6 F Pulse Rate 80 101 H 71 Pulse Rate [ From Monitor] Respiratory 18 18 18 Rate Blood Pressure 165/81 132/87 131/49 O2 Sat by Pulse 100 95 99 Oximetry 09/26/18 09/26/18 09/26/18 01:14 01:15 01:31 Temperature 99.2 F Pulse Rate 76 78 77 Pulse Rate [ From Monitor] Respiratory 18 18 19 Rate Blood Pressure 123/45 145/80 165/81 O2 Sat by Pulse 100 100 99 Oximetry 09/26/18 09/26/18 09/26/18 01:45 02:01 02:15 Temperature Pulse Rate 70 77 76 Pulse Rate [ From Monitor] Respiratory 18 18 18 Rate Blood Pressure 123/45 186/69 173/60 O2 Sat by Pulse 100 100 100 Oximetry 09/26/18 09/26/18 09/26/18 02:31 02:45 03:01 Temperature Pulse Rate 77 72 76 Pulse Rate [ From Monitor] Respiratory 13 18 17 Rate Blood Pressure 171/68 171/68 177/63 O2 Sat by Pulse 100 100 100 Oximetry 09/26/18 09/26/18 09/26/18 03:15 03:30 03:35 Temperature Pulse Rate 71 79 75 Pulse Rate [ From Monitor] Respiratory 18 18 Rate Blood Pressure 177/63 189/67 177/63 O2 Sat by Pulse 100 100 100 Oximetry 09/26/18 09/26/18 09/26/18 04:00 04:01 04:30 Temperature 100 F H Pulse Rate 77 89 Pulse Rate [ 78 From Monitor] Respiratory 18 19 15 Rate Blood Pressure 184/64 174/67 O2 Sat by Pulse 100 100 100 Oximetry 09/26/18 09/26/18 09/26/18 05:01 05:30 06:01 Temperature Pulse Rate 80 80 79 Pulse Rate [ From Monitor] Respiratory 13 18 18 Rate Blood Pressure 172/76 175/84 191/60 O2 Sat by Pulse 100 100 100 Oximetry 09/26/18 09/26/18 09/26/18 06:14 06:31 07:01 Temperature Pulse Rate 79 86 88 Pulse Rate [ From Monitor] Respiratory 22 18 Rate Blood Pressure 191/60 175/84 126/47 O2 Sat by Pulse 100 100 Oximetry 09/26/18 09/26/18 09/26/18 07:23 07:31 08:00 Temperature 98.7 F Pulse Rate 88 84 82 Pulse Rate [ 82 From Monitor] Respiratory 20 19 Rate Blood Pressure 126/47 184/73 136/49 O2 Sat by Pulse 100 100 100 Oximetry 09/26/18 08:31 Temperature Pulse Rate 79 Pulse Rate [ From Monitor] Respiratory 19 Rate Blood Pressure 136/49 O2 Sat by Pulse 100 Oximetry General appearance: Present: no acute distress - EENT Eyes: PERRL, EOM intact ENT: hearing intact, clear oral mucosa Ears: bilateral: normal - Neck Neck: supple, normal ROM - Respiratory Respiratory: bilateral: other (on the vent) - Breasts Breasts: deferred - Cardiovascular Rhythm: regular Heart Sounds: Present: S1 & S2. Absent: gallop, rub Extremities: pulses intact, No edema, normal color, Full ROM - Gastrointestinal General gastrointestinal: Present: soft, non-tender, non-distended, normal bowel sounds Rectal Exam: deferred - Genitourinary Female genitourinary: deferred - Integumentary Integumentary: clear, warm, dry - Musculoskeletal Musculoskeletal: 1, strength equal bilaterally - Neurologic Neurologic: moves all extremities - Labs CBC & Chem 7: 09/26/18 05:15 09/26/18 05:15 Labs: Abnormal lab results 09/19/18 09/25/18 09/25/18 Range/Units 21:10 11:13 14:56 WBC (4.5-11.0) K/mm3 RBC 2.31 L (3.65-5.03) M/mm3 Hgb 7.6 L (10.1-14.3) gm/dl Hct 22.5 L (30.3-42.9) % MCH 33 H (28-32) pg Lymph % (Auto) (13.4-35.0) % [place] % (Auto) (0.0-7.3) % [place] # (0.0-0.8) K/mm3 Seg Neutrophils % (40.0-70.0) % Seg Neutrophils # (1.8-7.7) K/mm3 POC ABG pCO2 (35-45) POC ABG pO2 (80-105) Chloride (98-107) mmol/L BUN (7-17) mg/dL Glucose (65-100) mg/dL POC Glucose 274 H (70-105) Total Protein (6.3-8.2) g/dL Albumin (3.9-5) g/dL Crossmatch See Detail 09/25/18 09/25/18 09/26/18 Range/Units 15:05 22:04 03:35 WBC (4.5-11.0) K/mm3 RBC (3.65-5.03) M/mm3 Hgb (10.1-14.3) gm/dl Hct (30.3-42.9) % MCH (28-32) pg Lymph % (Auto) (13.4-35.0) % [place] % (Auto) (0.0-7.3) % [place] # (0.0-0.8) K/mm3 Seg Neutrophils % (40.0-70.0) % Seg Neutrophils # (1.8-7.7) K/mm3 POC ABG pCO2 33.2 L (35-45) POC ABG pO2 249 H (80-105) Chloride (98-107) mmol/L BUN (7-17) mg/dL Glucose (65-100) mg/dL POC Glucose 333 H (70-105) Total Protein (6.3-8.2) g/dL Albumin (3.9-5) g/dL Crossmatch See Detail 09/26/18 09/26/18 Range/Units 05:15 05:15 WBC 12.6 H (4.5-11.0) K/mm3 RBC 3.21 L (3.65-5.03) M/mm3 Hgb (10.1-14.3) gm/dl Hct (30.3-42.9) % MCH (28-32) pg Lymph % (Auto) 10.2 L (13.4-35.0) % [place] % (Auto) 11.7 H (0.0-7.3) % [place] # 1.5 H (0.0-0.8) K/mm3 Seg Neutrophils % 78.0 H (40.0-70.0) % Seg Neutrophils # 9.9 H (1.8-7.7) K/mm3 POC ABG pCO2 (35-45) POC ABG pO2 (80-105) Chloride 109.2 H (98-107) mmol/L BUN 20 H (7-17) mg/dL Glucose 234 H (65-100) mg/dL POC Glucose (70-105) Total Protein 5.7 L (6.3-8.2) g/dL Albumin 3.2 L (3.9-5) g/dL Crossmatch
[2018-09-26] MEDS ORDERED: PROTONIX IV SCH (10:00)
[2018-09-26] MEDS: ISORDIL TITRADOSE PO SCH ×4 (10:04→21:49)
[2018-09-26] MEDS: PREVACID SOLUTAB FEEDTUBE SCH ×2 (10:04→21:36)
[2018-09-26] MEDS: CATAPRES PO SCH (10:08)
--- NOTE | 2018-09-26 10:52 | Progress Note ---
Assessment and Plan Acute hypoxemic respiratory failure. Acute gastrointestinal bleed. Acute encephalopathy. History of coronary artery disease. History of gastroesophageal reflux disease. History of diabetes. Hypertension. History of a prior cerebrovascular accident. Arthritis. Dementia - continue bronchodilators with pulmonary hygiene per RT - follow clinically off antibiotics - acute CVA explains cardio-respiratory distress some-what - continue enteral nutrition as tolerated - continue supplemental oxygen as needed to keep O2 sat's > 90% - continue lung protective strategies - continue daily SAT's and SBT assessment (on PSV trial now) - daily CXR and ABG in short term - VAP bundle addressed - continue accuchecks with glycemic control per SSI for target blood glucose <180mg/dL - Agitation management - Titrate sedation to RASS 0 to -1 - Prevention of delirium, maintenance of sleep-wake cycle - neurolology evaluation ongoing - VTE and Stress ulcer prophylaxis - continue other care per attending / other consultants ... re-evaluate in am & prn CONDITION: CRITICAL PROGNOSIS: GRAVE to GUARDED CODE STATUS: FULL CODE The high probability of a clinically significant, sudden or life-threatening deterioration of the [respiratory, cardiac and neurologic] system(s) required my full and direct attention, intervention and personal management. The aggregate critical care time was [35] minutes without overlap. Time includes spent on; [x] Data Review and interpretation [x] Patient assessment and monitoring of vital signs [x] Documentation [x] Medication orders and management Subjective Date of service: 09/26/18 Principal diagnosis: Ac hypoxemic resp failure; Acute CVA; Ac GI bleed; Ac encephalopathy; DM II Interval history: Patient is seen today for: Acute hypoxemic respiratory failure; Acute CVA; Acute gastrointestinal bleed; Acute encephalopathy; CAD; GERD; DM II; HTN; Arthritis; Dementia. Seen and examined at bedside; 24hour events reviewed; nursing and respiratory care staff consulted; no adverse overnight events reported to me; remains on MVS; following simple commands; No N/V/F/C; CT brain revealed acute on subacute CVA and stroke protocol initiated; neurology evaluation ongoing; no seizures; no gross G.I. re-bleeding Objective Vital Signs - 12hr 09/25/18 09/25/18 09/25/18 23:00 23:02 23:11 Temperature 99.6 F Pulse Rate 75 74 Pulse Rate [ From Monitor] Respiratory 18 19 Rate Blood Pressure 163/62 187/69 O2 Sat by Pulse 100 100 Oximetry 09/25/18 09/25/18 09/25/18 23:21 23:24 23:31 Temperature 99.9 F H Pulse Rate 73 75 78 Pulse Rate [ From Monitor] Respiratory 18 18 18 Rate Blood Pressure 177/64 137/50 179/62 O2 Sat by Pulse 100 100 91 Oximetry 09/25/18 09/25/18 09/25/18 23:35 23:44 23:45 Temperature 99.6 F Pulse Rate 77 73 73 Pulse Rate [ From Monitor] Respiratory 18 18 Rate Blood Pressure 179/62 115/43 115/43 O2 Sat by Pulse 100 100 100 Oximetry 09/25/18 09/25/18 09/26/18 23:51 23:52 00:00 Temperature 99.6 F Pulse Rate 74 96 H 72 Pulse Rate [ 71 From Monitor] Respiratory 18 17 18 Rate Blood Pressure 179/62 179/62 111/51 O2 Sat by Pulse 100 100 100 Oximetry 09/26/18 09/26/18 09/26/18 00:01 00:14 00:15 Temperature 99.6 F 99.9 F H Pulse Rate 81 73 79 Pulse Rate [ From Monitor] Respiratory 15 19 17 Rate Blood Pressure 111/51 132/73 132/73 O2 Sat by Pulse 100 98 100 Oximetry 09/26/18 09/26/18 09/26/18 00:30 00:44 00:45 Temperature 99.6 F Pulse Rate 71 80 101 H Pulse Rate [ From Monitor] Respiratory 18 18 18 Rate Blood Pressure 132/50 165/81 132/87 O2 Sat by Pulse 94 100 95 Oximetry 09/26/18 09/26/18 09/26/18 01:00 01:14 01:15 Temperature 99.2 F Pulse Rate 71 76 78 Pulse Rate [ From Monitor] Respiratory 18 18 18 Rate Blood Pressure 131/49 123/45 145/80 O2 Sat by Pulse 99 100 100 Oximetry 09/26/18 09/26/18 09/26/18 01:31 01:45 02:01 Temperature Pulse Rate 77 70 77 Pulse Rate [ From Monitor] Respiratory 19 18 18 Rate Blood Pressure 165/81 123/45 186/69 O2 Sat by Pulse 99 100 100 Oximetry 09/26/18 09/26/18 09/26/18 02:15 02:31 02:45 Temperature Pulse Rate 76 77 72 Pulse Rate [ From Monitor] Respiratory 18 13 18 Rate Blood Pressure 173/60 171/68 171/68 O2 Sat by Pulse 100 100 100 Oximetry 09/26/18 09/26/18 09/26/18 03:01 03:15 03:30 Temperature Pulse Rate 76 71 79 Pulse Rate [ From Monitor] Respiratory 17 18 18 Rate Blood Pressure 177/63 177/63 189/67 O2 Sat by Pulse 100 100 100 Oximetry 09/26/18 09/26/18 09/26/18 03:35 04:00 04:01 Temperature 100 F H Pulse Rate 75 77 Pulse Rate [ 78 From Monitor] Respiratory 18 19 Rate Blood Pressure 177/63 184/64 O2 Sat by Pulse 100 100 100 Oximetry 09/26/18 09/26/18 09/26/18 04:30 05:01 05:30 Temperature Pulse Rate 89 80 80 Pulse Rate [ From Monitor] Respiratory 15 13 18 Rate Blood Pressure 174/67 172/76 175/84 O2 Sat by Pulse 100 100 100 Oximetry 09/26/18 09/26/18 09/26/18 06:01 06:14 06:31 Temperature Pulse Rate 79 79 86 Pulse Rate [ From Monitor] Respiratory 18 22 Rate Blood Pressure 191/60 191/60 175/84 O2 Sat by Pulse 100 100 Oximetry 09/26/18 09/26/18 09/26/18 07:01 07:23 07:31 Temperature Pulse Rate 88 88 84 Pulse Rate [ From Monitor] Respiratory 18 20 Rate Blood Pressure 126/47 126/47 184/73 O2 Sat by Pulse 100 100 100 Oximetry 09/26/18 09/26/18 09/26/18 08:00 08:31 09:00 Temperature 98.7 F Pulse Rate 90 79 83 Pulse Rate [ 82 From Monitor] Respiratory 19 19 20 Rate Blood Pressure 136/49 136/49 136/49 O2 Sat by Pulse 100 100 100 Oximetry 09/26/18 09/26/18 09/26/18 09:30 10:00 10:04 Temperature Pulse Rate 80 83 92 H Pulse Rate [ From Monitor] Respiratory 18 18 Rate Blood Pressure 133/57 143/48 143/48 O2 Sat by Pulse 100 100 Oximetry 09/26/18 09/26/18 10:08 10:30 Temperature Pulse Rate 100 H 90 Pulse Rate [ From Monitor] Respiratory 21 Rate Blood Pressure 143/48 133/57 O2 Sat by Pulse 100 Oximetry Constitutional: no acute distress, other (elderly looking AAF, normocephalic and atraumatic with mildly increased resp effort on MVS) Eyes: non-icteric ENT: oropharynx moist, other (ETT 23 cm DREW) Neck: supple, no lymphadenopathy, no JVD Effort: mildly labored Ascultation: Bilateral: diminished breath sounds, rhonchi Percussion: Bilateral: not dull Cardiovascular: regular rate and rhythm Gastrointestinal: normoactive bowel sounds, soft, non-tender, non-distended Integumentary: normal Extremities: no cyanosis, no edema, pulses normal, no ischemia or petechiae Neurologic: pupils equal and round, CN II-XII normal, other (Left hemiparesis) Psychiatric: mood appropriate, other (unable to assess) CBC and BMP: 09/28/18 03:57 09/28/18 03:57 ABG, PT/INR, D-dimer: ABG POC ABG pH 7.439 (7.35-7.45) 09/26/18 03:35 POC ABG pCO2 33.2 (35-45) L 09/26/18 03:35 POC ABG pO2 249 (80-105) H 09/26/18 03:35 POC ABG HCO3 22.5 (22-26 mml/L) 09/26/18 03:35 POC ABG Total CO2 23 (23-27mmol/L) 09/26/18 03:35 POC ABG O2 Sat 100 09/26/18 03:35 PT/INR, D-dimer PT 13.4 Sec. (12.2-14.9) 09/19/18 16:34 INR 1.05 (0.87-1.13) 09/19/18 16:34 Abnormal lab findings: Abnormal Labs 09/19/18 09/19/18 09/19/18 15:11 15:11 16:01 WBC 3.7 L RBC 2.85 L Hgb 9.6 L Hct 28.0 L MCV 99 H MCH 34 H MCHC RDW 12.7 L Plt Count Lymph % (Auto) 41.9 H Tate % (Auto) 14.9 H Tate # Seg Neutrophils % Seg Neutrophils # 1.5 L POC ABG pCO2 POC ABG pO2 Sodium Chloride 107.9 H BUN 23 H Glucose 191 H POC Glucose Total Protein Albumin Ur Specific [place] 1.031 H Crossmatch 09/19/18 09/19/18 09/20/18 21:01 21:10 00:22 WBC RBC 2.39 L Hgb 8.1 L Hct 23.6 L MCV 99 H MCH 34 H MCHC RDW 12.5 L Plt Count Lymph % (Auto) [place] % (Auto) 9.9 H Tate # Seg Neutrophils % Seg Neutrophils # POC ABG pCO2 POC ABG pO2 Sodium Chloride BUN Glucose POC Glucose 229 H Total Protein Albumin Ur Specific [place] Crossmatch See Detail 09/20/18 09/20/18 09/20/18 06:11 06:15 08:17 WBC RBC 2.27 L Hgb 7.6 L Hct 22.4 L MCV 99 H MCH 34 H MCHC RDW 12.7 L Plt Count Lymph % (Auto) 35.1 H Tate % (Auto) 11.4 H Tate # Seg Neutrophils % Seg Neutrophils # POC ABG pCO2 POC ABG pO2 Sodium Chloride BUN Glucose POC Glucose 246 H 253 H Total Protein Albumin Ur Specific [place] Crossmatch 09/20/18 09/20/18 09/20/18 11:52 17:17 21:10 WBC RBC Hgb Hct MCV MCH MCHC RDW Plt Count Lymph % (Auto) [place] % (Auto) Tate # Seg Neutrophils % Seg Neutrophils # POC ABG pCO2 POC ABG pO2 Sodium Chloride BUN Glucose POC Glucose 278 H 241 H 245 H Total Protein Albumin Ur Specific [place] Crossmatch 09/21/18 09/21/18 09/21/18 05:15 07:43 16:35 WBC RBC 3.35 L Hgb Hct MCV MCH 33 H MCHC 35 H RDW Plt Count 134 L Lymph % (Auto) [place] % (Auto) 12.4 H Tate # 1.0 H Seg Neutrophils % Seg Neutrophils # POC ABG pCO2 POC ABG pO2 Sodium Chloride BUN Glucose POC Glucose 278 H 237 H Total Protein Albumin Ur Specific [place] Crossmatch 09/21/18 09/21/18 09/22/18 19:20 19:42 01:05 WBC RBC 2.66 L 2.43 L Hgb 8.7 L 8.0 L Hct 25.9 L D 23.4 L MCV MCH 33 H 33 H MCHC RDW Plt Count 137 L 127 L Lymph % (Auto) 12.7 L [place] % (Auto) 11.0 H Tate # 1.1 H Seg Neutrophils % 75.8 H Seg Neutrophils # POC ABG pCO2 POC ABG pO2 Sodium Chloride BUN Glucose POC Glucose 264 H Total Protein Albumin Ur Specific [place] Crossmatch 09/22/18 09/22/18 09/22/18 05:20 07:29 11:48 WBC RBC 2.43 L Hgb 8.0 L Hct 23.4 L MCV MCH 33 H MCHC RDW Plt Count 118 L Lymph % (Auto) [place] % (Auto) 14.0 H Tate # 1.1 H Seg Neutrophils % Seg Neutrophils # POC ABG pCO2 POC ABG pO2 Sodium Chloride BUN Glucose POC Glucose 335 H 300 H Total Protein Albumin Ur Specific [place] Crossmatch 09/22/18 09/22/18 09/23/18 16:55 21:04 04:52 WBC 4.4 L RBC 2.40 L Hgb 8.0 L Hct 23.4 L MCV 98 H MCH 33 H MCHC RDW Plt Count 115 L Lymph % (Auto) [place] % (Auto) 12.2 H Tate # Seg Neutrophils % Seg Neutrophils # POC ABG pCO2 POC ABG pO2 Sodium Chloride BUN Glucose POC Glucose 340 H 285 H Total Protein Albumin Ur Specific [place] Crossmatch 09/23/18 09/23/18 09/23/18 04:52 07:33 11:23 WBC RBC Hgb Hct MCV MCH MCHC RDW Plt Count Lymph % (Auto) [place] % (Auto) [place] # Seg Neutrophils % Seg Neutrophils # POC ABG pCO2 POC ABG pO2 Sodium Chloride 110.6 H BUN 19 H Glucose 220 H POC Glucose 216 H 307 H Total Protein Albumin Ur Specific [place] Crossmatch 09/23/18 09/23/18 09/24/18 16:23 20:33 06:09 WBC RBC 2.47 L Hgb 8.0 L Hct 24.8 L MCV 100 H MCH 33 H MCHC RDW Plt Count Lymph % (Auto) [place] % (Auto) 11.1 H Tate # Seg Neutrophils % Seg Neutrophils # POC ABG pCO2 POC ABG pO2 Sodium Chloride BUN Glucose POC Glucose 361 H 261 H Total Protein Albumin Ur Specific [place] Crossmatch 09/24/18 09/24/18 09/24/18 06:09 08:07 12:06 WBC RBC Hgb Hct MCV MCH MCHC RDW Plt Count Lymph % (Auto) [place] % (Auto) Tate # Seg Neutrophils % Seg Neutrophils # POC ABG pCO2 POC ABG pO2 Sodium Chloride 110.8 H BUN 18 H Glucose 135 H POC Glucose 130 H 154 H Total Protein Albumin Ur Specific [place] Crossmatch 09/24/18 09/24/18 09/25/18 16:47 20:55 06:05 WBC RBC 2.14 L Hgb 7.0 L Hct 21.1 L MCV 98 H MCH 33 H MCHC RDW Plt Count Lymph % (Auto) [place] % (Auto) 10.3 H Tate # Seg Neutrophils % Seg Neutrophils # POC ABG pCO2 POC ABG pO2 Sodium Chloride BUN Glucose POC Glucose 190 H 233 H Total Protein Albumin Ur Specific [place] Crossmatch 09/25/18 09/25/18 09/25/18 06:05 08:06 11:13 WBC RBC Hgb Hct MCV MCH MCHC RDW Plt Count Lymph % (Auto) [place] % (Auto) Tate # Seg Neutrophils % Seg Neutrophils # POC ABG pCO2 POC ABG pO2 Sodium 146 H Chloride 112.6 H BUN 20 H Glucose 243 H POC Glucose 248 H 274 H Total Protein Albumin Ur Specific [place] Crossmatch 09/25/18 09/25/18 09/25/18 14:56 15:05 22:04 WBC RBC 2.31 L Hgb 7.6 L Hct 22.5 L MCV MCH 33 H MCHC RDW Plt Count Lymph % (Auto) [place] % (Auto) Tate # Seg Neutrophils % Seg Neutrophils # POC ABG pCO2 POC ABG pO2 Sodium Chloride BUN Glucose POC Glucose 333 H Total Protein Albumin Ur Specific [place] Crossmatch See Detail 09/26/18 09/26/18 09/26/18 03:35 05:15 05:15 WBC 12.6 H RBC 3.21 L Hgb Hct MCV MCH MCHC RDW Plt Count Lymph % (Auto) 10.2 L [place] % (Auto) 11.7 H Tate # 1.5 H Seg Neutrophils % 78.0 H Seg Neutrophils # 9.9 H POC ABG pCO2 33.2 L POC ABG pO2 249 H Sodium Chloride 109.2 H BUN 20 H Glucose 234 H POC Glucose Total Protein 5.7 L Albumin 3.2 L Ur Specific [place] Crossmatch Chest x-ray: image reviewed (RIJ CVL; ETT in good position; no focal infiltrate) Allied health notes reviewed: nursing
[2018-09-26] MEDS ORDERED: NACL 0.9% 500 ML 500 ML IV ONE (11:34)
[2018-09-26] MEDS ORDERED: NACL 0.9% 500 ML 500 ML IV SCH (12:00)
[2018-09-26] MEDS: HumuLIN R SUB-Q SCH ×4 (12:10→23:43)
[2018-09-26] MEDS: ZESTRIL PO SCH (12:11)
[2018-09-26] MEDS: TENORMIN PO SCH (12:11)
--- NOTE | 2018-09-26 12:32 | Progress Note ---
Subjective Date of service: 09/26/18 Principal diagnosis: acute GI bleed; Acute CVA Interval history: the stroke is mostly on the right CELIO some in MCA patient can not have tPA due to GI bleed will follow Objective - Vital Sign Vital Signs - 12hr 09/26/18 09/26/18 09/26/18 00:44 00:45 01:00 Temperature 99.6 F Pulse Rate 80 101 H 71 Pulse Rate [ From Monitor] Respiratory 18 18 18 Rate Blood Pressure 165/81 132/87 131/49 O2 Sat by Pulse 100 95 99 Oximetry 09/26/18 09/26/18 09/26/18 01:14 01:15 01:31 Temperature 99.2 F Pulse Rate 76 78 77 Pulse Rate [ From Monitor] Respiratory 18 18 19 Rate Blood Pressure 123/45 145/80 165/81 O2 Sat by Pulse 100 100 99 Oximetry 09/26/18 09/26/18 09/26/18 01:45 02:01 02:15 Temperature Pulse Rate 70 77 76 Pulse Rate [ From Monitor] Respiratory 18 18 18 Rate Blood Pressure 123/45 186/69 173/60 O2 Sat by Pulse 100 100 100 Oximetry 09/26/18 09/26/18 09/26/18 02:31 02:45 03:01 Temperature Pulse Rate 77 72 76 Pulse Rate [ From Monitor] Respiratory 13 18 17 Rate Blood Pressure 171/68 171/68 177/63 O2 Sat by Pulse 100 100 100 Oximetry 09/26/18 09/26/18 09/26/18 03:15 03:30 03:35 Temperature Pulse Rate 71 79 75 Pulse Rate [ From Monitor] Respiratory 18 18 Rate Blood Pressure 177/63 189/67 177/63 O2 Sat by Pulse 100 100 100 Oximetry 09/26/18 09/26/18 09/26/18 04:00 04:01 04:30 Temperature 100 F H Pulse Rate 77 89 Pulse Rate [ 78 From Monitor] Respiratory 18 19 15 Rate Blood Pressure 184/64 174/67 O2 Sat by Pulse 100 100 100 Oximetry 09/26/18 09/26/18 09/26/18 05:01 05:30 06:01 Temperature Pulse Rate 80 80 79 Pulse Rate [ From Monitor] Respiratory 13 18 18 Rate Blood Pressure 172/76 175/84 191/60 O2 Sat by Pulse 100 100 100 Oximetry 09/26/18 09/26/18 09/26/18 06:14 06:31 07:01 Temperature Pulse Rate 79 86 88 Pulse Rate [ From Monitor] Respiratory 22 18 Rate Blood Pressure 191/60 175/84 126/47 O2 Sat by Pulse 100 100 Oximetry 09/26/18 09/26/18 09/26/18 07:23 07:31 08:00 Temperature 98.7 F Pulse Rate 88 84 90 Pulse Rate [ 82 From Monitor] Respiratory 20 19 Rate Blood Pressure 126/47 184/73 136/49 O2 Sat by Pulse 100 100 100 Oximetry 09/26/18 09/26/18 09/26/18 08:31 09:00 09:30 Temperature Pulse Rate 79 83 80 Pulse Rate [ From Monitor] Respiratory 19 20 18 Rate Blood Pressure 136/49 136/49 133/57 O2 Sat by Pulse 100 100 100 Oximetry 09/26/18 09/26/18 09/26/18 10:00 10:04 10:08 Temperature Pulse Rate 83 92 H 100 H Pulse Rate [ From Monitor] Respiratory 18 Rate Blood Pressure 143/48 143/48 143/48 O2 Sat by Pulse 100 Oximetry 09/26/18 09/26/18 09/26/18 10:30 11:00 12:00 Temperature 99.2 F Pulse Rate 90 91 H Pulse Rate [ From Monitor] Respiratory 21 18 Rate Blood Pressure 133/57 101/44 O2 Sat by Pulse 100 100 Oximetry 09/26/18 12:11 Temperature Pulse Rate 77 Pulse Rate [ From Monitor] Respiratory Rate Blood Pressure 103/40 O2 Sat by Pulse Oximetry - Laboratory Findings CBC and BMP: 09/26/18 05:15 09/26/18 05:15 Abnormal Lab Findings: Abnormal Labs 09/19/18 09/19/18 09/19/18 15:11 15:11 16:01 WBC 3.7 L RBC 2.85 L Hgb 9.6 L Hct 28.0 L MCV 99 H MCH 34 H MCHC RDW 12.7 L Plt Count Lymph % (Auto) 41.9 H Mcdonald % (Auto) 14.9 H Mcdonald # Seg Neutrophils % Seg Neutrophils # 1.5 L POC ABG pCO2 POC ABG pO2 Sodium Chloride 107.9 H BUN 23 H Glucose 191 H POC Glucose Total Protein Albumin Ur Specific [place] 1.031 H Crossmatch 09/19/18 09/19/18 09/20/18 21:01 21:10 00:22 WBC RBC 2.39 L Hgb 8.1 L Hct 23.6 L MCV 99 H MCH 34 H MCHC RDW 12.5 L Plt Count Lymph % (Auto) Mcdonald % (Auto) 9.9 H Mcdonald # Seg Neutrophils % Seg Neutrophils # POC ABG pCO2 POC ABG pO2 Sodium Chloride BUN Glucose POC Glucose 229 H Total Protein Albumin Ur Specific [place] Crossmatch See Detail 09/20/18 09/20/18 09/20/18 06:11 06:15 08:17 WBC RBC 2.27 L Hgb 7.6 L Hct 22.4 L MCV 99 H MCH 34 H MCHC RDW 12.7 L Plt Count Lymph % (Auto) 35.1 H Mcdonald % (Auto) 11.4 H Mcdonald # Seg Neutrophils % Seg Neutrophils # POC ABG pCO2 POC ABG pO2 Sodium Chloride BUN Glucose POC Glucose 246 H 253 H Total Protein Albumin Ur Specific [place] Crossmatch 09/20/18 09/20/18 09/20/18 11:52 17:17 21:10 WBC RBC Hgb Hct MCV MCH MCHC RDW Plt Count Lymph % (Auto) Mcdonald % (Auto) Mcdonald # Seg Neutrophils % Seg Neutrophils # POC ABG pCO2 POC ABG pO2 Sodium Chloride BUN Glucose POC Glucose 278 H 241 H 245 H Total Protein Albumin Ur Specific [place] Crossmatch 09/21/18 09/21/18 09/21/18 05:15 07:43 16:35 WBC RBC 3.35 L Hgb Hct MCV MCH 33 H MCHC 35 H RDW Plt Count 134 L Lymph % (Auto) Mcdonald % (Auto) 12.4 H Mcdonald # 1.0 H Seg Neutrophils % Seg Neutrophils # POC ABG pCO2 POC ABG pO2 Sodium Chloride BUN Glucose POC Glucose 278 H 237 H Total Protein Albumin Ur Specific [place] Crossmatch 09/21/18 09/21/18 09/22/18 19:20 19:42 01:05 WBC RBC 2.66 L 2.43 L Hgb 8.7 L 8.0 L Hct 25.9 L D 23.4 L MCV MCH 33 H 33 H MCHC RDW Plt Count 137 L 127 L Lymph % (Auto) 12.7 L Mcdonald % (Auto) 11.0 H Mcdonald # 1.1 H Seg Neutrophils % 75.8 H Seg Neutrophils # POC ABG pCO2 POC ABG pO2 Sodium Chloride BUN Glucose POC Glucose 264 H Total Protein Albumin Ur Specific [place] Crossmatch 09/22/18 09/22/18 09/22/18 05:20 07:29 11:48 WBC RBC 2.43 L Hgb 8.0 L Hct 23.4 L MCV MCH 33 H MCHC RDW Plt Count 118 L Lymph % (Auto) Mcdonald % (Auto) 14.0 H Mcdonald # 1.1 H Seg Neutrophils % Seg Neutrophils # POC ABG pCO2 POC ABG pO2 Sodium Chloride BUN Glucose POC Glucose 335 H 300 H Total Protein Albumin Ur Specific [place] Crossmatch 09/22/18 09/22/18 09/23/18 16:55 21:04 04:52 WBC 4.4 L RBC 2.40 L Hgb 8.0 L Hct 23.4 L MCV 98 H MCH 33 H MCHC RDW Plt Count 115 L Lymph % (Auto) Mcdonald % (Auto) 12.2 H Mcdonald # Seg Neutrophils % Seg Neutrophils # POC ABG pCO2 POC ABG pO2 Sodium Chloride BUN Glucose POC Glucose 340 H 285 H Total Protein Albumin Ur Specific [place] Crossmatch 09/23/18 09/23/18 09/23/18 04:52 07:33 11:23 WBC RBC Hgb Hct MCV MCH MCHC RDW Plt Count Lymph % (Auto) Mcdonald % (Auto) Mcdonald # Seg Neutrophils % Seg Neutrophils # POC ABG pCO2 POC ABG pO2 Sodium Chloride 110.6 H BUN 19 H Glucose 220 H POC Glucose 216 H 307 H Total Protein Albumin Ur Specific [place] Crossmatch 09/23/18 09/23/18 09/24/18 16:23 20:33 06:09 WBC RBC 2.47 L Hgb 8.0 L Hct 24.8 L MCV 100 H MCH 33 H MCHC RDW Plt Count Lymph % (Auto) Mcdonald % (Auto) 11.1 H Mcdonald # Seg Neutrophils % Seg Neutrophils # POC ABG pCO2 POC ABG pO2 Sodium Chloride BUN Glucose POC Glucose 361 H 261 H Total Protein Albumin Ur Specific [place] Crossmatch 09/24/18 09/24/18 09/24/18 06:09 08:07 12:06 WBC RBC Hgb Hct MCV MCH MCHC RDW Plt Count Lymph % (Auto) Mcdonald % (Auto) Mcdonald # Seg Neutrophils % Seg Neutrophils # POC ABG pCO2 POC ABG pO2 Sodium Chloride 110.8 H BUN 18 H Glucose 135 H POC Glucose 130 H 154 H Total Protein Albumin Ur Specific [place] Crossmatch 09/24/18 09/24/18 09/25/18 16:47 20:55 06:05 WBC RBC 2.14 L Hgb 7.0 L Hct 21.1 L MCV 98 H MCH 33 H MCHC RDW Plt Count Lymph % (Auto) Mcdonald % (Auto) 10.3 H Mcdonald # Seg Neutrophils % Seg Neutrophils # POC ABG pCO2 POC ABG pO2 Sodium Chloride BUN Glucose POC Glucose 190 H 233 H Total Protein Albumin Ur Specific [place] Crossmatch 09/25/18 09/25/18 09/25/18 06:05 08:06 11:13 WBC RBC Hgb Hct MCV MCH MCHC RDW Plt Count Lymph % (Auto) Mcdonald % (Auto) Mcdonald # Seg Neutrophils % Seg Neutrophils # POC ABG pCO2 POC ABG pO2 Sodium 146 H Chloride 112.6 H BUN 20 H Glucose 243 H POC Glucose 248 H 274 H Total Protein Albumin Ur Specific [place] Crossmatch 09/25/18 09/25/18 09/25/18 14:56 15:05 22:04 WBC RBC 2.31 L Hgb 7.6 L Hct 22.5 L MCV MCH 33 H MCHC RDW Plt Count Lymph % (Auto) Mcdonald % (Auto) Mcdonald # Seg Neutrophils % Seg Neutrophils # POC ABG pCO2 POC ABG pO2 Sodium Chloride BUN Glucose POC Glucose 333 H Total Protein Albumin Ur Specific [place] Crossmatch See Detail 09/26/18 09/26/18 09/26/18 03:35 05:15 05:15 WBC 12.6 H RBC 3.21 L Hgb Hct MCV MCH MCHC RDW Plt Count Lymph % (Auto) 10.2 L Mcdonald % (Auto) 11.7 H Mcdonald # 1.5 H Seg Neutrophils % 78.0 H Seg Neutrophils # 9.9 H POC ABG pCO2 33.2 L POC ABG pO2 249 H Sodium Chloride 109.2 H BUN 20 H Glucose 234 H POC Glucose Total Protein 5.7 L Albumin 3.2 L Ur Specific [place] Crossmatch 09/26/18 11:55 WBC RBC Hgb Hct MCV MCH MCHC RDW Plt Count Lymph % (Auto) Mcdonald % (Auto) Mcdonald # Seg Neutrophils % Seg Neutrophils # POC ABG pCO2 POC ABG pO2 Sodium Chloride BUN Glucose POC Glucose 288 H Total Protein Albumin Ur Specific [place] Crossmatch
--- NOTE | 2018-09-26 13:55 | Consultation ---
PULMONARY CRITICAL CARE CONSULTATION CONSULTING PHYSICIAN: Dr. Jorge Shaw. REASON FOR CONSULTATION: Acute hypoxemic respiratory failure, now on mechanical ventilator support, acute, possibly on chronic encephalopathy. CHIEF COMPLAINT AND HISTORY OF PRESENT ILLNESS: The patient is an 83-year-old -Lao female with past medical history as far as I can tell significant amongst other things for history of a prior cerebrovascular accident, [facility] resident who came into the Emergency Room for evaluation of a GI bleed. The patient apparently was able to inform the Emergency Room physician that she was not sure when the bleeding started. She was having lower abdominal pain. She denied any nausea, vomiting, or overt aspiration. Denied fevers or chills. Denied any trauma. She was evaluated in the ER and ultimately admitted to the medical floor for further GI evaluation. I should mention she also had a history of diverticulosis I believe. The patient was being evaluated on the medical floor. She had been seen by the GI team. It was suspected a diverticular bleed after colonoscopy was done. She had been without bleeding for about a couple of days. Earlier today, " response was called. She was found to be in respiratory distress. She was agonal unable to protect her airway. She was intubated via rapid sequence intubation, brought to the Emergency Room where I was asked to assist with management. When I stopped by to see her, she was resting on the bed. She was still paralyzed. She was on the mechanical ventilator, assist control, tidal volume, bilirubin 400, PEEP of 6, and rate of 18. They deny any history of seizures. They deny any history of trauma while she has been in the hospital. The above is as much of the history of presentation as I have. I should mention she is not a current smoker. Remote history is unknown. PAST MEDICAL HISTORY: Again, history of hypertension, cerebrovascular accident, coronary artery disease, diabetes, gastroesophageal reflux disease, arthritis, diverticulitis and diverticulosis. PAST SURGICAL HISTORY: She has had bilateral knee surgeries and hysterectomy. MEDICATIONS: She was on at the time I stopped by to see were reviewed. Pertinent medications included the following: Tylenol 650 mg p.o. q. 4 hours p.r.n. mild pain, atenolol 50 mg p.o. daily, Lipitor 20 mg p.o. at bedtime, clonidine 0.1 mg p.o. q. 12 hours, Aricept 5 mg p.o. at bedtime, hydralazine 10 mg IV q.4h. p.r.n. elevated blood pressures, insulin via sliding scale, Imdur 60 mg p.o. daily, Zestril 40 mg p.o. daily, Claritin 10 mg p.o. daily, p.r.n. allergy, Protonix 40 mg p.o. b.i.d., Tramadol 50 mg p.o. q. 8 hours p.r.n. moderate pain. ALLERGIES: ASPIRIN AND CODEINE, nature of this allergy is unknown. DIET: Well-built lady, acute weight loss or gain history is unknown. FAMILY AND SOCIAL HISTORY: [facility] resident. It is unclear how long she has been in the [facility]. No current alcohol, tobacco, or illicit drug use or abuse. Remote history is unknown. REVIEW OF SYSTEMS: Unobtainable secondary to patient's medical and mental condition. Otherwise, it is as in body of history above. PHYSICAL EXAMINATION: VITAL SIGNS: On examination, it really seems she was afebrile, temperature was 98.7 degrees Fahrenheit at presentation with a pulse of 77, respiratory rate of 16, blood pressure 115/70, O2 sats were 98%, inspired oxygen concentration at that time was not recorded. She was not hypotensive at the time of the rapid response. GENERAL: Elderly looking -Lao female normocephalic atraumatic, on the mechanical ventilator without significant patient-ventilator dyssynchrony. HEAD, EYES, EARS, NOSE, AND THROAT: Anicteric. No conjunctival erythema. Oropharynx is moist. Endotracheal tube was in place, taped around 23-24 cm at the lips. No gross jugular venous distention. Grossly, no palpable lymph nodes in the supraclavicular or submandibular lymph node chains. LUNGS: Auscultation of both lung vega is unremarkable. Clear to auscultation bilaterally. HEART: Heart sounds 1 and 2 are heard. They were regular in rate and rhythm at time of my evaluation. No rubs or murmurs. ABDOMEN: Soft, full, bowel sounds are positive, nontender. No palpable hepatosplenomegaly. EXTREMITIES: Without overt digital clubbing or cyanosis. No pedal edema. Pedal pulses are palpable bilaterally, 2+. NEUROLOGIC: She is paralyzed at the time I evaluated her. No spontaneous respiratory movements. No spontaneous movements. No fasciculations. No spasticity. SKIN: Normal turgor without overt cellulitis or rash. Unable to evaluate her from a psychiatric standpoint. LABORATORY DATA: From my review are as follows: Admission white cell count 3700, hemoglobin 9.6, hematocrit 28.0, platelet 156. No manual differential. INR was within normal limits 1.05. Serum sodium was 140, potassium 4.6, chloride 108, bicarbonate 24, BUN 23, creatinine 0.9, glucose 191. Urinalysis was essentially bland, negative for nitrites and leukocyte esterase. Serum hemoglobin dropped as low as 7, which is actually where she is at today. No reported active GI bleeding. MICROBIOLOGY STUDIES: Urine cultures, no growth. Stool occult blood was positive. A chest x-ray has been reviewed. Initial chest x-ray reveals in my right mainstem intubation and directions have been given to pull the tube back otherwise, no real focal infiltrate. ASSESSMENT AND PLAN: 1. Acute hypoxemic respiratory failure. 2. Acute gastrointestinal bleed. 3. Acute encephalopathy. 4. History of coronary artery disease. 5. History of gastroesophageal reflux disease. 6. History of diabetes. 7. Hypertension. 8. History of a prior cerebrovascular accident. 9. Arthritis. 10. Dementia. PLAN: We will keep him on full mechanical ventilator support in the short time. It does not seem there was any focal deficit at presentation. If she does, however, not improve well from mental status standpoint, I will be getting a stat CT scan of her head to rule out an acute on chronic CVA. Aspiration precautions will be maintained. Ventilator-associated pneumonia bundle has been instituted. Arterial blood gas will be ordered right now and ventilation and oxygenation will be adjusted as necessary. We will wean oxygen to keep sats greater than or equal to about 90%. A feeding tube has been placed. Placement will be confirmed and enteral nutrition will be started. Two units of packed red cells have been ordered appropriately. We will be watching closely for any evidence of further GI bleeding. We will continue her on GI prophylaxis. No acute indication for antibiotic therapy. Flu and pneumonia vaccination will be addressed per protocol. Thank you very much for the consult ____ Dr. Shaw. We will follow along. We will make further recommendations as picture progresses/becomes clearer and further again recommendations will be made at this time, I spent about 35-40 minutes of critical care time without overlap excluding any procedural time that may be necessary. JOB# [id number] STEPHANIE/ASA MORAN
--- NOTE | 2018-09-26 14:48 | XRay Report ---
CHEST 1 VIEW INDICATION: Acute hypoxemic Resp Failure; ETT position. COMPARISON: 09/25/2018 FINDINGS: Support devices: The endotracheal tube remains within 1 cm of the kalina and should be pulled back by 3 cm. A feeding tube has been placed and the tip is in the distal esophagus just above the EG juncti on. A right IJ catheter tip remains in the distal SVC in satisfactory position. Heart: Within normal limits. Vessels are normal. Lungs/Pleura: No acute air space or interstitial disease. Additional findings: None. IMPRESSION: The endotracheal tube tip remains low within 1 cm of the kalina. Recommend pullback by 3 centimeters. Proximal position of the feeding tube tip in the distal esophagus. Recommend replacement prior to fee ding. Signer Name: Pepe Harrison MD Signed: 09/26/2018 2:44 PM Workstation Name: [id number]
--- NOTE | 2018-09-26 17:56 | XRay Report ---
CHEST 1 VIEW 09/26/2018 5:20 PM INDICATION / CLINICAL INFORMATION: Dobhoff and ETT placement. COMPARISON: Chest x-ray 09/26/2018 at 2:07 PM same day FINDINGS: SUPPORT DEVICES: Dobbhoff feeding tube again projects over the distal thoracic esophagus, unchanged. Endotracheal tube and right internal jugular central line again project in expected position. HEART / MEDIASTINUM: No significant abnormality. LUNGS / PLEURA: No significant pulmonary or pleural abnormality. No pneumothorax. ADDITIONAL FINDINGS: No significant additional findings. IMPRESSION: 1. Malpositioned Dobbhoff feeding tube again projects over the distal thoracic esophagus and should b e advanced further into stomach. Signer Name: Kaden Huntley MD Signed: 09/26/2018 5:52 PM Workstation Name: [id number]
--- NOTE | 2018-09-26 18:30 | XRay Report ---
ABDOMEN 1 VIEW(S) INDICATION / CLINICAL INFORMATION: Dobhoff placement. COMPARISON: Chest radiograph dated 09/26/2018, 1720 hours and 1407 hours FINDINGS: TUBES / LINES: Weighted tip of the feeding tube projects the level the distal esophagus. This is unch anged from the chest radiograph performed at 1720 hours on 09/1518 BOWEL GAS PATTERN/EXTRALUMINAL GAS: No significant abnormality. No pneumatosis or secondary signs of free air. ADDITIONAL FINDINGS: No significant additional findings. IMPRESSION: 1. Weighted tip of the feeding tube is at the level the distal esophagus. It is unchanged from the re cent radiographs. Signer Name: Keanu Mello MD Signed: 09/26/2018 6:25 PM Workstation Name: [id number]
--- NOTE | 2018-09-26 20:24 | XRay Report ---
ABDOMEN 1 VIEW(S) INDICATION / CLINICAL INFORMATION: NG tube placement. COMPARISON: 09/26/2018, 1727 hours FINDINGS: TUBES / LINES: Feeding tube is been advanced. The tip projects at the level the gastric fundus. BOWEL GAS PATTERN/EXTRALUMINAL GAS: No significant abnormality. No pneumatosis or secondary signs of free air. ADDITIONAL FINDINGS: No significant additional findings. IMPRESSION: 1. Tip of the feeding tube is at the level of the gastric fundus. Signer Name: Keanu Mello MD Signed: 09/26/2018 8:19 PM Workstation Name: [id number]
[2018-09-26] MEDS: IMDUR PO SCH (20:55)
[2018-09-26] MEDS: D5/0.45NS 1,000 ML IV SCH (21:35)
[2018-09-26] MEDS: ARICEPT PO SCH (21:36)
--- NOTE | 2018-09-27 02:55 | XRay Report ---
CHEST 1 VIEW INDICATION / CLINICAL INFORMATION: follow up respiratory failure. COMPARISON: 09/26/2018 FINDINGS: SUPPORT DEVICES: The endotracheal tube and right CVL are in satisfactory position. The Dobbhoff catheter has been advanced into the stomach and is directed to the left side. HEART / MEDIASTINUM: No significant abnormality. LUNGS / PLEURA: No significant pulmonary or pleural abnormality. No pneumothorax. ADDITIONAL FINDINGS: No significant additional findings. IMPRESSION: 1. No acute findings. Signer Name: Oc Garces MD Signed: 09/27/2018 2:51 AM Workstation Name: [id number]
[2018-09-27 04:34] LABS: Basophils % (Auto) 0.2 % (0.0-1.8); Eosinophils % (Auto) 0.2 % (0.0-4.3); Hematocrit 29.6 % (30.3-42.9); Lymphocytes # (Auto) 1.1 K/mm3 (1.2-5.4); Lymphocytes % (Auto) 10.8 % (13.4-35.0); Mean Corpuscular HGB Conc 34 % (30-34); Mean Corpuscular Volume 98 fl (79-97); Monocytes # (Auto) 1.5 K/mm3 (0.0-0.8); Monocytes % (Auto) 14.6 % (0.0-7.3); Platelet Count 138 K/mm3 (140-440); Red Blood Count 3.03 M/mm3 (3.65-5.03); Red Cell Distribution Width 15.1 % (13.2-15.2)
[2018-09-27 04:51] LABS: Alanine Aminotransferase 6 units/L (7-56); Albumin 2.9 g/dL (3.9-5); BUN/Creatinine Ratio 21; Blood Urea Nitrogen 15 mg/dL (7-17); Calcium 8.6 mg/dL (8.4-10.2); Hemolysis Index 3
[2018-09-27] MEDS: HumuLIN R SUB-Q SCH ×4 (05:36→23:24)
[2018-09-27] MEDS: ISORDIL TITRADOSE PO SCH ×3 (05:36→21:29)
[2018-09-27] MEDS: APRESOLINE IV PRN ×2 (07:31→13:12)
--- NOTE | 2018-09-27 08:23 | Progress Note ---
Subjective Date of service: 09/27/18 Principal diagnosis: acute GI bleed; Acute CVA Interval history: evidence of acute ischemic stroke on the CT and I want to review the actual images but this are not in systeme will recheck and leave an additional note reviewed the chart Objective - Vital Sign Vital Signs - 12hr 09/26/18 09/26/18 09/26/18 20:30 21:00 21:30 Temperature Pulse Rate 76 76 74 Pulse Rate [ From Monitor] Respiratory 14 14 13 Rate Blood Pressure 164/56 117/40 123/41 O2 Sat by Pulse 100 100 100 Oximetry 09/26/18 09/26/18 09/26/18 21:49 22:00 22:30 Temperature Pulse Rate 81 78 76 Pulse Rate [ From Monitor] Respiratory 15 15 Rate Blood Pressure 123/41 160/32 161/41 O2 Sat by Pulse 100 100 Oximetry 09/26/18 09/26/18 09/26/18 23:00 23:09 23:30 Temperature 100.1 F H Pulse Rate 76 82 Pulse Rate [ From Monitor] Respiratory 13 14 Rate Blood Pressure 155/66 158/53 O2 Sat by Pulse 100 100 Oximetry 09/26/18 09/27/18 09/27/18 23:36 00:00 00:30 Temperature Pulse Rate 78 83 74 Pulse Rate [ 77 From Monitor] Respiratory 14 15 14 Rate Blood Pressure 158/53 171/45 171/45 O2 Sat by Pulse 98 100 100 Oximetry 09/27/18 09/27/18 09/27/18 00:37 01:00 01:30 Temperature Pulse Rate 76 74 73 Pulse Rate [ From Monitor] Respiratory 14 13 Rate Blood Pressure 128/47 123/43 125/47 O2 Sat by Pulse 100 98 100 Oximetry 09/27/18 09/27/18 09/27/18 02:00 02:36 03:00 Temperature Pulse Rate 71 86 82 Pulse Rate [ From Monitor] Respiratory 13 12 17 Rate Blood Pressure 111/42 111/42 176/53 O2 Sat by Pulse 100 96 100 Oximetry 09/27/18 09/27/18 09/27/18 03:30 03:31 04:00 Temperature 100.7 F H Pulse Rate 80 82 Pulse Rate [ 80 From Monitor] Respiratory 16 17 Rate Blood Pressure 167/61 167/59 O2 Sat by Pulse 100 100 Oximetry 09/27/18 09/27/18 09/27/18 04:11 04:30 05:00 Temperature Pulse Rate 80 81 80 Pulse Rate [ From Monitor] Respiratory 16 15 Rate Blood Pressure 167/61 189/78 189/78 O2 Sat by Pulse 100 100 100 Oximetry 09/27/18 09/27/18 09/27/18 05:30 05:36 06:00 Temperature Pulse Rate 85 82 88 Pulse Rate [ From Monitor] Respiratory 16 16 Rate Blood Pressure 189/78 179/64 179/64 O2 Sat by Pulse 100 100 Oximetry 09/27/18 09/27/18 09/27/18 06:30 07:00 07:30 Temperature Pulse Rate 80 79 80 Pulse Rate [ From Monitor] Respiratory 16 16 15 Rate Blood Pressure 147/56 161/61 163/64 O2 Sat by Pulse 100 100 100 Oximetry 09/27/18 09/27/18 09/27/18 07:31 07:34 08:00 Temperature 98.8 F Pulse Rate 81 81 88 Pulse Rate [ 88 From Monitor] Respiratory 16 Rate Blood Pressure 163/64 163/64 121/40 O2 Sat by Pulse 100 99 Oximetry - Laboratory Findings CBC and BMP: 09/27/18 04:18 09/27/18 03:57 Abnormal Lab Findings: Abnormal Labs 09/19/18 09/19/18 09/19/18 15:11 15:11 16:01 WBC 3.7 L RBC 2.85 L Hgb 9.6 L Hct 28.0 L MCV 99 H MCH 34 H MCHC RDW 12.7 L Plt Count Lymph % (Auto) 41.9 H [place] % (Auto) 14.9 H Lymph # [place] # Seg Neutrophils % Seg Neutrophils # 1.5 L POC ABG pCO2 POC ABG pO2 Sodium Potassium Chloride 107.9 H BUN 23 H Glucose 191 H POC Glucose ALT Total Protein Albumin Ur Specific [place] 1.031 H Crossmatch 09/19/18 09/19/18 09/20/18 21:01 21:10 00:22 WBC RBC 2.39 L Hgb 8.1 L Hct 23.6 L MCV 99 H MCH 34 H MCHC RDW 12.5 L Plt Count Lymph % (Auto) [place] % (Auto) 9.9 H Lymph # [place] # Seg Neutrophils % Seg Neutrophils # POC ABG pCO2 POC ABG pO2 Sodium Potassium Chloride BUN Glucose POC Glucose 229 H ALT Total Protein Albumin Ur Specific [place] Crossmatch See Detail 09/20/18 09/20/18 09/20/18 06:11 06:15 08:17 WBC RBC 2.27 L Hgb 7.6 L Hct 22.4 L MCV 99 H MCH 34 H MCHC RDW 12.7 L Plt Count Lymph % (Auto) 35.1 H [place] % (Auto) 11.4 H Lymph # [place] # Seg Neutrophils % Seg Neutrophils # POC ABG pCO2 POC ABG pO2 Sodium Potassium Chloride BUN Glucose POC Glucose 246 H 253 H ALT Total Protein Albumin Ur Specific [place] Crossmatch 09/20/18 09/20/18 09/20/18 11:52 17:17 21:10 WBC RBC Hgb Hct MCV MCH MCHC RDW Plt Count Lymph % (Auto) [place] % (Auto) Lymph # [place] # Seg Neutrophils % Seg Neutrophils # POC ABG pCO2 POC ABG pO2 Sodium Potassium Chloride BUN Glucose POC Glucose 278 H 241 H 245 H ALT Total Protein Albumin Ur Specific [place] Crossmatch 09/21/18 09/21/18 09/21/18 05:15 07:43 16:35 WBC RBC 3.35 L Hgb Hct MCV MCH 33 H MCHC 35 H RDW Plt Count 134 L Lymph % (Auto) [place] % (Auto) 12.4 H Lymph # [place] # 1.0 H Seg Neutrophils % Seg Neutrophils # POC ABG pCO2 POC ABG pO2 Sodium Potassium Chloride BUN Glucose POC Glucose 278 H 237 H ALT Total Protein Albumin Ur Specific [place] Crossmatch 09/21/18 09/21/18 09/22/18 19:20 19:42 01:05 WBC RBC 2.66 L 2.43 L Hgb 8.7 L 8.0 L Hct 25.9 L D 23.4 L MCV MCH 33 H 33 H MCHC RDW Plt Count 137 L 127 L Lymph % (Auto) 12.7 L [place] % (Auto) 11.0 H Lymph # [place] # 1.1 H Seg Neutrophils % 75.8 H Seg Neutrophils # POC ABG pCO2 POC ABG pO2 Sodium Potassium Chloride BUN Glucose POC Glucose 264 H ALT Total Protein Albumin Ur Specific [place] Crossmatch 09/22/18 09/22/18 09/22/18 05:20 07:29 11:48 WBC RBC 2.43 L Hgb 8.0 L Hct 23.4 L MCV MCH 33 H MCHC RDW Plt Count 118 L Lymph % (Auto) [place] % (Auto) 14.0 H Lymph # [place] # 1.1 H Seg Neutrophils % Seg Neutrophils # POC ABG pCO2 POC ABG pO2 Sodium Potassium Chloride BUN Glucose POC Glucose 335 H 300 H ALT Total Protein Albumin Ur Specific [place] Crossmatch 09/22/18 09/22/18 09/23/18 16:55 21:04 04:52 WBC 4.4 L RBC 2.40 L Hgb 8.0 L Hct 23.4 L MCV 98 H MCH 33 H MCHC RDW Plt Count 115 L Lymph % (Auto) [place] % (Auto) 12.2 H Lymph # [place] # Seg Neutrophils % Seg Neutrophils # POC ABG pCO2 POC ABG pO2 Sodium Potassium Chloride BUN Glucose POC Glucose 340 H 285 H ALT Total Protein Albumin Ur Specific [place] Crossmatch 09/23/18 09/23/18 09/23/18 04:52 07:33 11:23 WBC RBC Hgb Hct MCV MCH MCHC RDW Plt Count Lymph % (Auto) [place] % (Auto) Lymph # [place] # Seg Neutrophils % Seg Neutrophils # POC ABG pCO2 POC ABG pO2 Sodium Potassium Chloride 110.6 H BUN 19 H Glucose 220 H POC Glucose 216 H 307 H ALT Total Protein Albumin Ur Specific [place] Crossmatch 09/23/18 09/23/18 09/24/18 16:23 20:33 06:09 WBC RBC 2.47 L Hgb 8.0 L Hct 24.8 L MCV 100 H MCH 33 H MCHC RDW Plt Count Lymph % (Auto) [place] % (Auto) 11.1 H Lymph # [place] # Seg Neutrophils % Seg Neutrophils # POC ABG pCO2 POC ABG pO2 Sodium Potassium Chloride BUN Glucose POC Glucose 361 H 261 H ALT Total Protein Albumin Ur Specific [place] Crossmatch 09/24/18 09/24/18 09/24/18 06:09 08:07 12:06 WBC RBC Hgb Hct MCV MCH MCHC RDW Plt Count Lymph % (Auto) [place] % (Auto) Lymph # [place] # Seg Neutrophils % Seg Neutrophils # POC ABG pCO2 POC ABG pO2 Sodium Potassium Chloride 110.8 H BUN 18 H Glucose 135 H POC Glucose 130 H 154 H ALT Total Protein Albumin Ur Specific [place] Crossmatch 09/24/18 09/24/18 09/25/18 16:47 20:55 06:05 WBC RBC 2.14 L Hgb 7.0 L Hct 21.1 L MCV 98 H MCH 33 H MCHC RDW Plt Count Lymph % (Auto) [place] % (Auto) 10.3 H Lymph # [place] # Seg Neutrophils % Seg Neutrophils # POC ABG pCO2 POC ABG pO2 Sodium Potassium Chloride BUN Glucose POC Glucose 190 H 233 H ALT Total Protein Albumin Ur Specific [place] Crossmatch 09/25/18 09/25/18 09/25/18 06:05 08:06 11:13 WBC RBC Hgb Hct MCV MCH MCHC RDW Plt Count Lymph % (Auto) [place] % (Auto) Lymph # [place] # Seg Neutrophils % Seg Neutrophils # POC ABG pCO2 POC ABG pO2 Sodium 146 H Potassium Chloride 112.6 H BUN 20 H Glucose 243 H POC Glucose 248 H 274 H ALT Total Protein Albumin Ur Specific [place] Crossmatch 09/25/18 09/25/18 09/25/18 14:56 15:05 22:04 WBC RBC 2.31 L Hgb 7.6 L Hct 22.5 L MCV MCH 33 H MCHC RDW Plt Count Lymph % (Auto) [place] % (Auto) Lymph # [place] # Seg Neutrophils % Seg Neutrophils # POC ABG pCO2 POC ABG pO2 Sodium Potassium Chloride BUN Glucose POC Glucose 333 H ALT Total Protein Albumin Ur Specific [place] Crossmatch See Detail 09/26/18 09/26/18 09/26/18 03:35 05:15 05:15 WBC 12.6 H RBC 3.21 L Hgb Hct MCV MCH MCHC RDW Plt Count Lymph % (Auto) 10.2 L [place] % (Auto) 11.7 H Lymph # [place] # 1.5 H Seg Neutrophils % 78.0 H Seg Neutrophils # 9.9 H POC ABG pCO2 33.2 L POC ABG pO2 249 H Sodium Potassium Chloride 109.2 H BUN 20 H Glucose 234 H POC Glucose ALT Total Protein 5.7 L Albumin 3.2 L Ur Specific [place] Crossmatch 09/26/18 09/26/18 09/26/18 11:55 17:52 23:32 WBC RBC Hgb Hct MCV MCH MCHC RDW Plt Count Lymph % (Auto) [place] % (Auto) Lymph # [place] # Seg Neutrophils % Seg Neutrophils # POC ABG pCO2 POC ABG pO2 Sodium Potassium Chloride BUN Glucose POC Glucose 288 H 292 H 266 H ALT Total Protein Albumin Ur Specific [place] Crossmatch 09/27/18 09/27/18 09/27/18 03:57 04:18 05:01 WBC RBC 3.03 L Hgb 10.0 L Hct 29.6 L MCV 98 H MCH 33 H MCHC RDW Plt Count 138 L Lymph % (Auto) 10.8 L [place] % (Auto) 14.6 H Lymph # 1.1 L [place] # 1.5 H Seg Neutrophils % 74.2 H Seg Neutrophils # POC ABG pCO2 POC ABG pO2 Sodium Potassium 3.5 L Chloride 111.3 H BUN Glucose 220 H POC Glucose 250 H ALT 6 L Total Protein 5.4 L Albumin 2.9 L Ur Specific [place] Crossmatch 09/27/18 05:21 WBC RBC Hgb Hct MCV MCH MCHC RDW Plt Count Lymph % (Auto) [place] % (Auto) Lymph # [place] # Seg Neutrophils % Seg Neutrophils # POC ABG pCO2 POC ABG pO2 148 H Sodium Potassium Chloride BUN Glucose POC Glucose ALT Total Protein Albumin Ur Specific [place] Crossmatch
[2018-09-27] MEDS ORDERED: POTASSIUM CHLORIDE FEEDTUBE ONE (09:00)
[2018-09-27] MEDS: PREVACID SOLUTAB FEEDTUBE SCH ×2 (09:08→21:29)
[2018-09-27] MEDS: TENORMIN PO SCH (09:08)
[2018-09-27] MEDS ORDERED: SODIUM BICARBONATE FEEDTUBE PRN (13:32)
[2018-09-27] MEDS ORDERED: SIMPLE SYRUP FEEDTUBE PRN ×2 (13:32)
[2018-09-27] MEDS ORDERED: PANCREAZE DR 10,500 UNIT FEEDTUBE PRN (13:32)
[2018-09-27] MEDS: ZESTRIL PO SCH (14:28)
[2018-09-27] MEDS: LANTUS SUB-Q SCH (14:36)
[2018-09-27] MEDS ORDERED: NACL 0.9% 1000 ML 1,000 ML IV SCH (16:00)
--- NOTE | 2018-09-27 20:11 | Progress Note ---
Assessment and Plan - Patient Problems (1) LGI bleed Current Visit: Yes Plan to address problem: Follow GI , monitor labs. notes reviewed from GI. this is severe diverticular dz., not amendable to surgery. See notes above. Had some evidence of loss. same as above. (2) Dementia Current Visit: Yes Status: Chronic Qualifiers: Alzheimer's disease onset: unspecified onset Dementia behavioral disturbance: without behavioral disturbance Plan to address problem: supportive care. (3) Abdominal pain Current Visit: Yes Status: Acute Plan to address problem: Await scope. resolved. (4) Anemia Current Visit: Yes Status: Acute Plan to address problem: Monitor labs PRN. Transfusion, as necessary. same as above. Stable, post bld transfusion. 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 Awaiting neurology eval. Subjective Date of service: 09/27/18 Principal diagnosis: Ac hypoxemic resp failure; Acute CVA; Ac GI bleed; Ac encephalopathy; DM II Interval history: Patient seen/examined, resting in bed, labs/ notes/consults reviewed. Patient scheduled for a scope tomorrow.I have given some transfusion, and will do H/h q6hrs. Patient seen/examined, resting in bed, labs/ operative notes reviewed.Will restart on IVF, and restart diet tomorrow. Patient seen/examined, resting in bed, notes/labs reviewed. i had spoken to her daughter yesterday, with full update. She is not keen to any aggressive measures, ophelia surgery. She is contemplating AND/vs hospice.She was suppose to think about it, and let us know.Will continue with supportive care for now. Patient seen/examined, resting in bed, labs reviewed. No active bleeding. GI/Surgery notes reviewed also. Patient seen/examined, resting in bed, notes/labs reviewed.No report of any active bleeding at this time. If this remains this way, will discharge back to the [place] 2days ,or so. patient seen/examined, resting in bed, Had a code blue called earlier, and transfered to the unit, and intubated. Ct with contrast showed sub acute CELIO distribution stroke, and acute non hemorrhagic CVA. 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 Once feasible, will do red cell tagged scan., and possibly IR intervention, with Embolization of the offending vessel, depending on how far the family wants to go.For now, will continue with replacement blood transfusion. Patient seen/examined, resting in bed, labs reviewed, and stable, post transfusion of 2units PRBC. Awaiting neurology eval/REC. patient seen/examined, resting in bed, still on the vent, but awoken easily.I have reviewed the Neurologist notes. Objective - Constitutional Vitals: Vital Signs - 12hr 09/27/18 09/27/18 09/27/18 08:30 09:00 09:08 Temperature Pulse Rate 90 94 H 94 H Pulse Rate [ From Monitor] Respiratory 16 21 Rate Blood Pressure 126/42 142/51 142/51 O2 Sat by Pulse 98 100 Oximetry 09/27/18 09/27/18 09/27/18 09:30 10:00 10:30 Temperature Pulse Rate 91 H 86 83 Pulse Rate [ From Monitor] Respiratory 19 19 17 Rate Blood Pressure 128/48 138/49 130/50 O2 Sat by Pulse 100 100 100 Oximetry 09/27/18 09/27/18 09/27/18 11:00 11:30 11:52 Temperature Pulse Rate 83 80 83 Pulse Rate [ From Monitor] Respiratory 16 17 14 Rate Blood Pressure 142/65 139/50 142/65 O2 Sat by Pulse 100 100 100 Oximetry 09/27/18 09/27/18 09/27/18 12:00 12:30 13:00 Temperature 100.1 F H Pulse Rate 78 83 80 Pulse Rate [ 78 From Monitor] Respiratory 18 22 19 Rate Blood Pressure 140/53 160/48 160/48 O2 Sat by Pulse 100 100 100 Oximetry 09/27/18 09/27/18 09/27/18 13:12 13:13 13:30 Temperature Pulse Rate 124 H 81 88 Pulse Rate [ From Monitor] Respiratory 19 Rate Blood Pressure 177/54 177/54 93/37 O2 Sat by Pulse 100 Oximetry 09/27/18 09/27/18 09/27/18 14:00 14:30 15:00 Temperature Pulse Rate 83 81 81 Pulse Rate [ From Monitor] Respiratory 16 18 20 Rate Blood Pressure 103/43 115/43 134/47 O2 Sat by Pulse 100 100 100 Oximetry 09/27/18 09/27/18 09/27/18 15:30 15:35 15:37 Temperature 100.6 F H Pulse Rate 80 83 Pulse Rate [ From Monitor] Respiratory 17 16 Rate Blood Pressure 109/47 103/43 O2 Sat by Pulse 100 100 Oximetry 09/27/18 09/27/18 09/27/18 16:00 16:30 17:00 Temperature Pulse Rate 79 83 81 Pulse Rate [ 80 From Monitor] Respiratory 17 14 18 Rate Blood Pressure 114/43 122/55 124/47 O2 Sat by Pulse 100 100 100 Oximetry 09/27/18 09/27/18 09/27/18 17:30 18:00 18:30 Temperature Pulse Rate 83 82 84 Pulse Rate [ From Monitor] Respiratory 19 18 20 Rate Blood Pressure 125/49 128/49 125/50 O2 Sat by Pulse 100 100 100 Oximetry General appearance: Present: no acute distress - EENT Eyes: PERRL, EOM intact ENT: hearing intact, clear oral mucosa Ears: bilateral: normal - Neck Neck: supple, normal ROM - Respiratory Respiratory effort: normal Respiratory: bilateral: CTA - Breasts Breasts: deferred - Cardiovascular Rhythm: regular Heart Sounds: Present: S1 & S2. Absent: gallop, rub Extremities: pulses intact, No edema, normal color, Full ROM - Gastrointestinal General gastrointestinal: Present: soft, non-tender, non-distended, normal bowel sounds Rectal Exam: deferred - Genitourinary Female genitourinary: deferred - Integumentary Integumentary: clear, warm, dry - Musculoskeletal Musculoskeletal: 1, strength equal bilaterally - Psychiatric Psychiatric: appropriate mood/affect - Labs CBC & Chem 7: 09/27/18 04:18 09/27/18 03:57 Labs: Abnormal lab results 09/26/18 09/27/18 09/27/18 Range/Units 23:32 03:57 04:18 RBC 3.03 L (3.65-5.03) M/mm3 Hgb 10.0 L (10.1-14.3) gm/dl Hct 29.6 L (30.3-42.9) % MCV 98 H (79-97) fl MCH 33 H (28-32) pg Plt Count 138 L (140-440) K/mm3 Lymph % (Auto) 10.8 L (13.4-35.0) % [place] % (Auto) 14.6 H (0.0-7.3) % Lymph # 1.1 L (1.2-5.4) K/mm3 [place] # 1.5 H (0.0-0.8) K/mm3 Seg Neutrophils % 74.2 H (40.0-70.0) % POC ABG pCO2 (35-45) POC ABG pO2 (80-105) Potassium 3.5 L (3.6-5.0) mmol/L Chloride 111.3 H (98-107) mmol/L Glucose 220 H (65-100) mg/dL POC Glucose 266 H (70-105) ALT 6 L (7-56) units/L Total Protein 5.4 L (6.3-8.2) g/dL Albumin 2.9 L (3.9-5) g/dL 09/27/18 09/27/18 09/27/18 Range/Units 05:01 05:21 11:59 RBC (3.65-5.03) M/mm3 Hgb (10.1-14.3) gm/dl Hct (30.3-42.9) % MCV (79-97) fl MCH (28-32) pg Plt Count (140-440) K/mm3 Lymph % (Auto) (13.4-35.0) % [place] % (Auto) (0.0-7.3) % Lymph # (1.2-5.4) K/mm3 [place] # (0.0-0.8) K/mm3 Seg Neutrophils % (40.0-70.0) % POC ABG pCO2 (35-45) POC ABG pO2 148 H (80-105) Potassium (3.6-5.0) mmol/L Chloride (98-107) mmol/L Glucose (65-100) mg/dL POC Glucose 250 H 240 H (70-105) ALT (7-56) units/L Total Protein (6.3-8.2) g/dL Albumin (3.9-5) g/dL 09/27/18 09/27/18 Range/Units 14:29 18:16 RBC (3.65-5.03) M/mm3 Hgb (10.1-14.3) gm/dl Hct (30.3-42.9) % MCV (79-97) fl MCH (28-32) pg Plt Count (140-440) K/mm3 Lymph % (Auto) (13.4-35.0) % [place] % (Auto) (0.0-7.3) % Lymph # (1.2-5.4) K/mm3 [place] # (0.0-0.8) K/mm3 Seg Neutrophils % (40.0-70.0) % POC ABG pCO2 31.1 L (35-45) POC ABG pO2 118 H (80-105) Potassium (3.6-5.0) mmol/L Chloride (98-107) mmol/L Glucose (65-100) mg/dL POC Glucose 266 H (70-105) ALT (7-56) units/L Total Protein (6.3-8.2) g/dL Albumin (3.9-5) g/dL
[2018-09-27] MEDS: ARICEPT PO SCH (21:29)
--- NOTE | 2018-09-28 02:35 | XRay Report ---
CHEST 1 VIEW INDICATION / CLINICAL INFORMATION: follow up respiratory failure. COMPARISON: 09/27/2018 FINDINGS: SUPPORT DEVICES: Stable. HEART / MEDIASTINUM: No significant abnormality. LUNGS / PLEURA: No significant pulmonary or pleural abnormality. No pneumothorax. ADDITIONAL FINDINGS: No significant additional findings. IMPRESSION: 1. No acute findings. Signer Name: Oc Garces MD Signed: 09/28/2018 2:31 AM Workstation Name: [id number]
[2018-09-28 05:29] LABS: Basophils # (Auto) 0.1 K/mm3 (0.0-0.1); Basophils % (Auto) 0.5 % (0.0-1.8); Eosinophils % (Auto) 0.1 % (0.0-4.3); Lymphocytes # (Auto) 1.2 K/mm3 (1.2-5.4); Lymphocytes % (Auto) 9.5 % (13.4-35.0); Mean Corpuscular HGB Conc 33 % (30-34); Mean Corpuscular Volume 98 fl (79-97); Monocytes # (Auto) 1.6 K/mm3 (0.0-0.8); Monocytes % (Auto) 12.3 % (0.0-7.3); Red Blood Count 3.05 M/mm3 (3.65-5.03); Red Cell Distribution Width 15.5 % (13.2-15.2)
[2018-09-28 05:41] LABS: Alanine Aminotransferase 7 units/L (7-56); Albumin 2.8 g/dL (3.9-5); BUN/Creatinine Ratio 27; Blood Urea Nitrogen 16 mg/dL (7-17); Calcium 8.8 mg/dL (8.4-10.2); Chol/HDL Ratio 2.28 %; HDL Cholesterol 49 mg/dL (40-59); Hemolysis Index 12; LDL Cholesterol,Direct 56 mg/dL (50-130)
[2018-09-28 05:55] LABS: Platelet Count 169 K/mm3 (140-440)
[2018-09-28] MEDS: ISORDIL TITRADOSE PO SCH ×3 (05:58→21:59)
[2018-09-28] MEDS: HumuLIN R SUB-Q SCH ×4 (06:02→23:45)
[2018-09-28] MEDS: D5/0.45NS 1,000 ML IV SCH (08:30)
[2018-09-28] MEDS: ZESTRIL PO SCH (09:37)
[2018-09-28] MEDS: PREVACID SOLUTAB FEEDTUBE SCH ×2 (09:37→21:59)
[2018-09-28] MEDS: TENORMIN PO SCH (09:37)
[2018-09-28] MEDS: LANTUS SUB-Q SCH (09:38)
--- NOTE | 2018-09-28 10:50 | Progress Note ---
Subjective Date of service: 09/28/18 Principal diagnosis: Ac hypoxemic resp failure; Acute CVA; Ac GI bleed; Ac encephalopathy; DM II Interval history: spoke with Dr. Loy Kraus did go over the CT personally with radiology as there is small issue with image viewer transfer of images the CT shows likely old stroke small in the right MCA but there is new stroke in the right CELIO involving entire vascualr distribution minimal edema from the stroke and no bleed one stroke stabilizes will get CTA of the head and carotid u/s no tPA is indicated Objective - Vital Sign Vital Signs - 12hr 09/27/18 09/27/18 09/27/18 23:00 23:30 23:33 Temperature Pulse Rate 78 80 80 Pulse Rate [ From Monitor] Respiratory 19 19 20 Rate Blood Pressure 126/48 136/46 136/46 O2 Sat by Pulse 100 99 100 Oximetry 09/27/18 09/28/18 09/28/18 23:52 00:00 00:05 Temperature 100.2 F H Pulse Rate 80 80 Pulse Rate [ 81 From Monitor] Respiratory 19 Rate Blood Pressure 132/44 132/44 O2 Sat by Pulse 99 97 Oximetry 09/28/18 09/28/18 09/28/18 00:07 00:30 01:00 Temperature Pulse Rate 79 79 80 Pulse Rate [ From Monitor] Respiratory 18 17 16 Rate Blood Pressure 132/44 149/54 131/47 O2 Sat by Pulse 100 100 100 Oximetry 09/28/18 09/28/18 09/28/18 01:30 02:00 02:30 Temperature Pulse Rate 80 81 81 Pulse Rate [ From Monitor] Respiratory 17 17 17 Rate Blood Pressure 133/53 133/45 138/51 O2 Sat by Pulse 100 100 100 Oximetry 09/28/18 09/28/18 09/28/18 03:00 03:30 04:00 Temperature 99.7 F H Pulse Rate 84 90 85 Pulse Rate [ 82 From Monitor] Respiratory 18 19 Rate Blood Pressure 146/52 146/52 146/52 O2 Sat by Pulse 99 100 Oximetry 09/28/18 09/28/18 09/28/18 04:30 05:00 05:20 Temperature Pulse Rate 83 82 87 Pulse Rate [ From Monitor] Respiratory 17 17 Rate Blood Pressure 146/52 161/58 161/58 O2 Sat by Pulse 100 100 Oximetry 09/28/18 09/28/18 09/28/18 05:30 05:58 06:00 Temperature Pulse Rate 84 83 84 Pulse Rate [ From Monitor] Respiratory 18 17 Rate Blood Pressure 152/55 157/49 151/50 O2 Sat by Pulse 100 100 Oximetry 09/28/18 09/28/18 09/28/18 06:30 07:00 07:27 Temperature Pulse Rate 87 83 84 Pulse Rate [ From Monitor] Respiratory 17 16 17 Rate Blood Pressure 151/50 113/40 151/50 O2 Sat by Pulse 100 100 100 Oximetry 09/28/18 09/28/18 09/28/18 07:30 08:00 08:01 Temperature 99.3 F Pulse Rate 84 84 84 Pulse Rate [ 81 From Monitor] Respiratory 21 19 19 Rate Blood Pressure 104/50 119/45 O2 Sat by Pulse 100 100 100 Oximetry 09/28/18 09/28/18 09/28/18 08:30 09:01 09:30 Temperature Pulse Rate 85 86 85 Pulse Rate [ From Monitor] Respiratory 20 21 20 Rate Blood Pressure 120/44 120/44 151/57 O2 Sat by Pulse 100 100 100 Oximetry 09/28/18 09:37 Temperature Pulse Rate 85 Pulse Rate [ From Monitor] Respiratory Rate Blood Pressure 151/57 O2 Sat by Pulse Oximetry - Laboratory Findings CBC and BMP: 09/28/18 03:57 09/28/18 03:57 Abnormal Lab Findings: Abnormal Labs 09/19/18 09/19/18 09/19/18 15:11 15:11 16:01 WBC 3.7 L RBC 2.85 L Hgb 9.6 L Hct 28.0 L MCV 99 H MCH 34 H MCHC RDW 12.7 L Plt Count Lymph % (Auto) 41.9 H [place] % (Auto) 14.9 H Lymph # [place] # Seg Neutrophils % Seg Neutrophils # 1.5 L POC ABG pCO2 POC ABG pO2 Sodium Potassium Chloride 107.9 H Carbon Dioxide BUN 23 H Creatinine Glucose 191 H POC Glucose ALT Total Protein Albumin Ur Specific [place] 1.031 H Crossmatch 09/19/18 09/19/18 09/20/18 21:01 21:10 00:22 WBC RBC 2.39 L Hgb 8.1 L Hct 23.6 L MCV 99 H MCH 34 H MCHC RDW 12.5 L Plt Count Lymph % (Auto) [place] % (Auto) 9.9 H Lymph # [place] # Seg Neutrophils % Seg Neutrophils # POC ABG pCO2 POC ABG pO2 Sodium Potassium Chloride Carbon Dioxide BUN Creatinine Glucose POC Glucose 229 H ALT Total Protein Albumin Ur Specific [place] Crossmatch See Detail 09/20/18 09/20/18 09/20/18 06:11 06:15 08:17 WBC RBC 2.27 L Hgb 7.6 L Hct 22.4 L MCV 99 H MCH 34 H MCHC RDW 12.7 L Plt Count Lymph % (Auto) 35.1 H [place] % (Auto) 11.4 H Lymph # [place] # Seg Neutrophils % Seg Neutrophils # POC ABG pCO2 POC ABG pO2 Sodium Potassium Chloride Carbon Dioxide BUN Creatinine Glucose POC Glucose 246 H 253 H ALT Total Protein Albumin Ur Specific [place] Crossmatch 09/20/18 09/20/18 09/20/18 11:52 17:17 21:10 WBC RBC Hgb Hct MCV MCH MCHC RDW Plt Count Lymph % (Auto) [place] % (Auto) Lymph # [place] # Seg Neutrophils % Seg Neutrophils # POC ABG pCO2 POC ABG pO2 Sodium Potassium Chloride Carbon Dioxide BUN Creatinine Glucose POC Glucose 278 H 241 H 245 H ALT Total Protein Albumin Ur Specific [place] Crossmatch 09/21/18 09/21/18 09/21/18 05:15 07:43 16:35 WBC RBC 3.35 L Hgb Hct MCV MCH 33 H MCHC 35 H RDW Plt Count 134 L Lymph % (Auto) [place] % (Auto) 12.4 H Lymph # [place] # 1.0 H Seg Neutrophils % Seg Neutrophils # POC ABG pCO2 POC ABG pO2 Sodium Potassium Chloride Carbon Dioxide BUN Creatinine Glucose POC Glucose 278 H 237 H ALT Total Protein Albumin Ur Specific [place] Crossmatch 09/21/18 09/21/18 09/22/18 19:20 19:42 01:05 WBC RBC 2.66 L 2.43 L Hgb 8.7 L 8.0 L Hct 25.9 L D 23.4 L MCV MCH 33 H 33 H MCHC RDW Plt Count 137 L 127 L Lymph % (Auto) 12.7 L [place] % (Auto) 11.0 H Lymph # [place] # 1.1 H Seg Neutrophils % 75.8 H Seg Neutrophils # POC ABG pCO2 POC ABG pO2 Sodium Potassium Chloride Carbon Dioxide BUN Creatinine Glucose POC Glucose 264 H ALT Total Protein Albumin Ur Specific [place] Crossmatch 09/22/18 09/22/18 09/22/18 05:20 07:29 11:48 WBC RBC 2.43 L Hgb 8.0 L Hct 23.4 L MCV MCH 33 H MCHC RDW Plt Count 118 L Lymph % (Auto) [place] % (Auto) 14.0 H Lymph # [place] # 1.1 H Seg Neutrophils % Seg Neutrophils # POC ABG pCO2 POC ABG pO2 Sodium Potassium Chloride Carbon Dioxide BUN Creatinine Glucose POC Glucose 335 H 300 H ALT Total Protein Albumin Ur Specific [place] Crossmatch 09/22/18 09/22/18 09/23/18 16:55 21:04 04:52 WBC 4.4 L RBC 2.40 L Hgb 8.0 L Hct 23.4 L MCV 98 H MCH 33 H MCHC RDW Plt Count 115 L Lymph % (Auto) [place] % (Auto) 12.2 H Lymph # [place] # Seg Neutrophils % Seg Neutrophils # POC ABG pCO2 POC ABG pO2 Sodium Potassium Chloride Carbon Dioxide BUN Creatinine Glucose POC Glucose 340 H 285 H ALT Total Protein Albumin Ur Specific [place] Crossmatch 09/23/18 09/23/18 09/23/18 04:52 07:33 11:23 WBC RBC Hgb Hct MCV MCH MCHC RDW Plt Count Lymph % (Auto) [place] % (Auto) Lymph # [place] # Seg Neutrophils % Seg Neutrophils # POC ABG pCO2 POC ABG pO2 Sodium Potassium Chloride 110.6 H Carbon Dioxide BUN 19 H Creatinine Glucose 220 H POC Glucose 216 H 307 H ALT Total Protein Albumin Ur Specific [place] Crossmatch 09/23/18 09/23/18 09/24/18 16:23 20:33 06:09 WBC RBC 2.47 L Hgb 8.0 L Hct 24.8 L MCV 100 H MCH 33 H MCHC RDW Plt Count Lymph % (Auto) [place] % (Auto) 11.1 H Lymph # [place] # Seg Neutrophils % Seg Neutrophils # POC ABG pCO2 POC ABG pO2 Sodium Potassium Chloride Carbon Dioxide BUN Creatinine Glucose POC Glucose 361 H 261 H ALT Total Protein Albumin Ur Specific [place] Crossmatch 09/24/18 09/24/18 09/24/18 06:09 08:07 12:06 WBC RBC Hgb Hct MCV MCH MCHC RDW Plt Count Lymph % (Auto) [place] % (Auto) Lymph # [place] # Seg Neutrophils % Seg Neutrophils # POC ABG pCO2 POC ABG pO2 Sodium Potassium Chloride 110.8 H Carbon Dioxide BUN 18 H Creatinine Glucose 135 H POC Glucose 130 H 154 H ALT Total Protein Albumin Ur Specific [place] Crossmatch 09/24/18 09/24/18 09/25/18 16:47 20:55 06:05 WBC RBC 2.14 L Hgb 7.0 L Hct 21.1 L MCV 98 H MCH 33 H MCHC RDW Plt Count Lymph % (Auto) [place] % (Auto) 10.3 H Lymph # [place] # Seg Neutrophils % Seg Neutrophils # POC ABG pCO2 POC ABG pO2 Sodium Potassium Chloride Carbon Dioxide BUN Creatinine Glucose POC Glucose 190 H 233 H ALT Total Protein Albumin Ur Specific [place] Crossmatch 09/25/18 09/25/18 09/25/18 06:05 08:06 11:13 WBC RBC Hgb Hct MCV MCH MCHC RDW Plt Count Lymph % (Auto) [place] % (Auto) Lymph # [place] # Seg Neutrophils % Seg Neutrophils # POC ABG pCO2 POC ABG pO2 Sodium 146 H Potassium Chloride 112.6 H Carbon Dioxide BUN 20 H Creatinine Glucose 243 H POC Glucose 248 H 274 H ALT Total Protein Albumin Ur Specific [place] Crossmatch 09/25/18 09/25/18 09/25/18 14:56 15:05 22:04 WBC RBC 2.31 L Hgb 7.6 L Hct 22.5 L MCV MCH 33 H MCHC RDW Plt Count Lymph % (Auto) [place] % (Auto) Lymph # [place] # Seg Neutrophils % Seg Neutrophils # POC ABG pCO2 POC ABG pO2 Sodium Potassium Chloride Carbon Dioxide BUN Creatinine Glucose POC Glucose 333 H ALT Total Protein Albumin Ur Specific [place] Crossmatch See Detail 09/26/18 09/26/18 09/26/18 03:35 05:15 05:15 WBC 12.6 H RBC 3.21 L Hgb Hct MCV MCH MCHC RDW Plt Count Lymph % (Auto) 10.2 L [place] % (Auto) 11.7 H Lymph # [place] # 1.5 H Seg Neutrophils % 78.0 H Seg Neutrophils # 9.9 H POC ABG pCO2 33.2 L POC ABG pO2 249 H Sodium Potassium Chloride 109.2 H Carbon Dioxide BUN 20 H Creatinine Glucose 234 H POC Glucose ALT Total Protein 5.7 L Albumin 3.2 L Ur Specific [place] Crossmatch 09/26/18 09/26/18 09/26/18 11:55 17:52 23:32 WBC RBC Hgb Hct MCV MCH MCHC RDW Plt Count Lymph % (Auto) [place] % (Auto) Lymph # [place] # Seg Neutrophils % Seg Neutrophils # POC ABG pCO2 POC ABG pO2 Sodium Potassium Chloride Carbon Dioxide BUN Creatinine Glucose POC Glucose 288 H 292 H 266 H ALT Total Protein Albumin Ur Specific [place] Crossmatch 09/27/18 09/27/18 09/27/18 03:57 04:18 05:01 WBC RBC 3.03 L Hgb 10.0 L Hct 29.6 L MCV 98 H MCH 33 H MCHC RDW Plt Count 138 L Lymph % (Auto) 10.8 L [place] % (Auto) 14.6 H Lymph # 1.1 L [place] # 1.5 H Seg Neutrophils % 74.2 H Seg Neutrophils # POC ABG pCO2 POC ABG pO2 Sodium Potassium 3.5 L Chloride 111.3 H Carbon Dioxide BUN Creatinine Glucose 220 H POC Glucose 250 H ALT 6 L Total Protein 5.4 L Albumin 2.9 L Ur Specific [place] Crossmatch 09/27/18 09/27/18 09/27/18 05:21 11:59 14:29 WBC RBC Hgb Hct MCV MCH MCHC RDW Plt Count Lymph % (Auto) [place] % (Auto) Lymph # [place] # Seg Neutrophils % Seg Neutrophils # POC ABG pCO2 31.1 L POC ABG pO2 148 H 118 H Sodium Potassium Chloride Carbon Dioxide BUN Creatinine Glucose POC Glucose 240 H ALT Total Protein Albumin Ur Specific [place] Crossmatch 09/27/18 09/27/18 09/28/18 18:16 23:26 03:57 WBC 12.7 H RBC 3.05 L Hgb 10.0 L Hct 30.0 L MCV 98 H MCH 33 H MCHC RDW 15.5 H Plt Count Lymph % (Auto) 9.5 L [place] % (Auto) 12.3 H Lymph # [place] # 1.6 H Seg Neutrophils % 77.6 H Seg Neutrophils # 9.9 H POC ABG pCO2 POC ABG pO2 Sodium Potassium Chloride Carbon Dioxide BUN Creatinine Glucose POC Glucose 266 H 242 H ALT Total Protein Albumin Ur Specific [place] Crossmatch 09/28/18 09/28/18 09/28/18 03:57 04:46 05:55 WBC RBC Hgb Hct MCV MCH MCHC RDW Plt Count Lymph % (Auto) [place] % (Auto) Lymph # [place] # Seg Neutrophils % Seg Neutrophils # POC ABG pCO2 POC ABG pO2 136 H Sodium Potassium Chloride 109.9 H Carbon Dioxide 21 L BUN Creatinine 0.6 L Glucose 245 H POC Glucose 270 H ALT Total Protein 5.7 L Albumin 2.8 L Ur Specific [place] Crossmatch
--- NOTE | 2018-09-28 12:12 | Progress Note ---
Assessment and Plan Acute hypoxemic respiratory failure. Acute gastrointestinal bleed. Acute encephalopathy. History of coronary artery disease. History of gastroesophageal reflux disease. History of diabetes. Hypertension. History of a prior cerebrovascular accident. Arthritis. Dementia - get ABG after trial of SBT - extubate if meets criteria - BIPAP support scheduled qhs post extubation with prn daytime use - continue bronchodilators with pulmonary hygiene per RT - follow clinically off antibiotics - acute CVA explains cardio-respiratory distress some-what - coST evaluation after extubation - continue supplemental oxygen as needed to keep O2 sat's > 90% - continue lung protective strategies - continue daily SAT's and SBT assessment (on PSV trial now) - daily CXR and ABG in short term - VAP bundle addressed - continue accuchecks with glycemic control per SSI for target blood glucose <180mg/dL - Agitation management - Titrate sedation to RASS 0 to -1 - Prevention of delirium, maintenance of sleep-wake cycle - neurolology evaluation ongoing - VTE and Stress ulcer prophylaxis - continue other care per attending / other consultants ... re-evaluate in am & prn CONDITION: CRITICAL PROGNOSIS: GRAVE to GUARDED CODE STATUS: FULL CODE The high probability of a clinically significant, sudden or life-threatening deterioration of the [respiratory, cardiac and neurologic] system(s) required my full and direct attention, intervention and personal management. The aggregate critical care time was [32] minutes without overlap. Time includes spent on; [x] Data Review and interpretation [x] Patient assessment and monitoring of vital signs [x] Documentation [x] Medication orders and management Subjective Date of service: 09/28/18 Principal diagnosis: Ac hypoxemic resp failure; Acute CVA; Ac GI bleed; Ac encephalopathy; DM II Interval history: Patient is seen today for: Acute hypoxemic respiratory failure; Acute CVA; Acute gastrointestinal bleed; Acute encephalopathy; CAD; GERD; DM II; HTN; Arthritis; Dementia. Seen and examined at bedside; 24hour events reviewed; nursing and respiratory care staff consulted; no adverse overnight events reported to me; remains on MVS; following simple commands; tolerating SBT well so far and AMS is a little improved Objective Vital Signs - 12hr 09/28/18 09/28/18 09/28/18 00:30 01:00 01:30 Temperature Pulse Rate 79 80 80 Pulse Rate [ From Monitor] Respiratory 17 16 17 Rate Blood Pressure 149/54 131/47 133/53 O2 Sat by Pulse 100 100 100 Oximetry 09/28/18 09/28/18 09/28/18 02:00 02:30 03:00 Temperature Pulse Rate 81 81 84 Pulse Rate [ From Monitor] Respiratory 17 17 18 Rate Blood Pressure 133/45 138/51 146/52 O2 Sat by Pulse 100 100 99 Oximetry 09/28/18 09/28/18 09/28/18 03:30 04:00 04:30 Temperature 99.7 F H Pulse Rate 90 85 83 Pulse Rate [ 82 From Monitor] Respiratory 19 19 17 Rate Blood Pressure 146/52 146/52 146/52 O2 Sat by Pulse 100 Oximetry 09/28/18 09/28/18 09/28/18 05:00 05:20 05:30 Temperature Pulse Rate 82 87 84 Pulse Rate [ From Monitor] Respiratory 17 18 Rate Blood Pressure 161/58 161/58 152/55 O2 Sat by Pulse 100 100 100 Oximetry 09/28/18 09/28/18 09/28/18 05:58 06:00 06:30 Temperature Pulse Rate 83 84 87 Pulse Rate [ From Monitor] Respiratory 17 17 Rate Blood Pressure 157/49 151/50 151/50 O2 Sat by Pulse 100 100 Oximetry 09/28/18 09/28/18 09/28/18 07:00 07:27 07:30 Temperature Pulse Rate 83 84 84 Pulse Rate [ From Monitor] Respiratory 16 17 21 Rate Blood Pressure 113/40 151/50 104/50 O2 Sat by Pulse 100 100 100 Oximetry 09/28/18 09/28/18 09/28/18 08:00 08:01 08:30 Temperature 99.3 F Pulse Rate 84 84 85 Pulse Rate [ 81 From Monitor] Respiratory 19 20 Rate Blood Pressure 119/45 120/44 O2 Sat by Pulse 100 100 100 Oximetry 09/28/18 09/28/18 09/28/18 09:01 09:30 09:37 Temperature Pulse Rate 86 85 85 Pulse Rate [ From Monitor] Respiratory 21 20 Rate Blood Pressure 120/44 151/57 151/57 O2 Sat by Pulse 100 100 Oximetry 09/28/18 09/28/18 09/28/18 10:00 10:31 11:00 Temperature Pulse Rate 82 85 79 Pulse Rate [ From Monitor] Respiratory 18 Rate Blood Pressure 139/50 153/93 153/93 O2 Sat by Pulse 100 100 100 Oximetry 07/17/19 07/17/19 11:31 11:56 Temperature Pulse Rate 74 74 Pulse Rate [ From Monitor] Respiratory 17 18 Rate Blood Pressure 134/53 134/53 O2 Sat by Pulse 100 100 Oximetry Constitutional: no acute distress, other (elderly looking AAF, normocephalic and atraumatic with mildly increased resp effort on MVS) Eyes: non-icteric ENT: oropharynx moist, other (ETT 23 cm DREW) Neck: supple, no lymphadenopathy, no JVD Effort: mildly labored Ascultation: Bilateral: diminished breath sounds, rhonchi Percussion: Bilateral: not dull Cardiovascular: regular rate and rhythm Gastrointestinal: normoactive bowel sounds, soft, non-tender, non-distended Integumentary: normal Extremities: no cyanosis, no edema, pulses normal, no ischemia or petechiae Neurologic: pupils equal and round, CN II-XII normal, other (Left hemiparesis) Psychiatric: mood appropriate, other (unable to assess) CBC and BMP: 09/30/18 06:41 09/30/18 05:00 ABG, PT/INR, D-dimer: ABG POC ABG pH 7.390 (7.35-7.45) 09/28/18 04:46 POC ABG pCO2 35.5 (35-45) 09/28/18 04:46 POC ABG pO2 136 (80-105) H 09/28/18 04:46 POC ABG HCO3 21.5 (22-26 mml/L) 09/28/18 04:46 POC ABG Total CO2 23 (23-27mmol/L) 09/28/18 04:46 POC ABG O2 Sat 99 09/28/18 04:46 PT/INR, D-dimer PT 13.4 Sec. (12.2-14.9) 09/19/18 16:34 INR 1.05 (0.87-1.13) 09/19/18 16:34 Abnormal lab findings: Abnormal Labs 09/19/18 09/19/18 09/19/18 15:11 15:11 16:01 WBC 3.7 L RBC 2.85 L Hgb 9.6 L Hct 28.0 L MCV 99 H MCH 34 H MCHC RDW 12.7 L Plt Count Lymph % (Auto) 41.9 H [place] % (Auto) 14.9 H Lymph # [place] # Seg Neutrophils % Seg Neutrophils # 1.5 L POC ABG pCO2 POC ABG pO2 Sodium Potassium Chloride 107.9 H Carbon Dioxide BUN 23 H Creatinine Glucose 191 H POC Glucose ALT Total Protein Albumin Ur Specific [place] 1.031 H Crossmatch 09/19/18 09/19/18 09/20/18 21:01 21:10 00:22 WBC RBC 2.39 L Hgb 8.1 L Hct 23.6 L MCV 99 H MCH 34 H MCHC RDW 12.5 L Plt Count Lymph % (Auto) [place] % (Auto) 9.9 H Lymph # [place] # Seg Neutrophils % Seg Neutrophils # POC ABG pCO2 POC ABG pO2 Sodium Potassium Chloride Carbon Dioxide BUN Creatinine Glucose POC Glucose 229 H ALT Total Protein Albumin Ur Specific [place] Crossmatch See Detail 09/20/18 09/20/18 09/20/18 06:11 06:15 08:17 WBC RBC 2.27 L Hgb 7.6 L Hct 22.4 L MCV 99 H MCH 34 H MCHC RDW 12.7 L Plt Count Lymph % (Auto) 35.1 H [place] % (Auto) 11.4 H Lymph # [place] # Seg Neutrophils % Seg Neutrophils # POC ABG pCO2 POC ABG pO2 Sodium Potassium Chloride Carbon Dioxide BUN Creatinine Glucose POC Glucose 246 H 253 H ALT Total Protein Albumin Ur Specific [place] Crossmatch 09/20/18 09/20/18 09/20/18 11:52 17:17 21:10 WBC RBC Hgb Hct MCV MCH MCHC RDW Plt Count Lymph % (Auto) [place] % (Auto) Lymph # [place] # Seg Neutrophils % Seg Neutrophils # POC ABG pCO2 POC ABG pO2 Sodium Potassium Chloride Carbon Dioxide BUN Creatinine Glucose POC Glucose 278 H 241 H 245 H ALT Total Protein Albumin Ur Specific [place] Crossmatch 09/21/18 09/21/18 09/21/18 05:15 07:43 16:35 WBC RBC 3.35 L Hgb Hct MCV MCH 33 H MCHC 35 H RDW Plt Count 134 L Lymph % (Auto) [place] % (Auto) 12.4 H Lymph # [place] # 1.0 H Seg Neutrophils % Seg Neutrophils # POC ABG pCO2 POC ABG pO2 Sodium Potassium Chloride Carbon Dioxide BUN Creatinine Glucose POC Glucose 278 H 237 H ALT Total Protein Albumin Ur Specific [place] Crossmatch 0709/21/18 09/22/18 19:20 19:42 01:05 WBC RBC 2.66 L 2.43 L Hgb 8.7 L 8.0 L Hct 25.9 L D 23.4 L MCV MCH 33 H 33 H MCHC RDW Plt Count 137 L 127 L Lymph % (Auto) 12.7 L [place] % (Auto) 11.0 H Lymph # [place] # 1.1 H Seg Neutrophils % 75.8 H Seg Neutrophils # POC ABG pCO2 POC ABG pO2 Sodium Potassium Chloride Carbon Dioxide BUN Creatinine Glucose POC Glucose 264 H ALT Total Protein Albumin Ur Specific [place] Crossmatch 09/22/18 09/22/18 09/22/18 05:20 07:29 11:48 WBC RBC 2.43 L Hgb 8.0 L Hct 23.4 L MCV MCH 33 H MCHC RDW Plt Count 118 L Lymph % (Auto) [place] % (Auto) 14.0 H Lymph # [place] # 1.1 H Seg Neutrophils % Seg Neutrophils # POC ABG pCO2 POC ABG pO2 Sodium Potassium Chloride Carbon Dioxide BUN Creatinine Glucose POC Glucose 335 H 300 H ALT Total Protein Albumin Ur Specific [place] Crossmatch 09/22/18 09/22/18 09/23/18 16:55 21:04 04:52 WBC 4.4 L RBC 2.40 L Hgb 8.0 L Hct 23.4 L MCV 98 H MCH 33 H MCHC RDW Plt Count 115 L Lymph % (Auto) [place] % (Auto) 12.2 H Lymph # [place] # Seg Neutrophils % Seg Neutrophils # POC ABG pCO2 POC ABG pO2 Sodium Potassium Chloride Carbon Dioxide BUN Creatinine Glucose POC Glucose 340 H 285 H ALT Total Protein Albumin Ur Specific [place] Crossmatch 09/23/18 09/23/18 09/23/18 04:52 07:33 11:23 WBC RBC Hgb Hct MCV MCH MCHC RDW Plt Count Lymph % (Auto) [place] % (Auto) Lymph # [place] # Seg Neutrophils % Seg Neutrophils # POC ABG pCO2 POC ABG pO2 Sodium Potassium Chloride 110.6 H Carbon Dioxide BUN 19 H Creatinine Glucose 220 H POC Glucose 216 H 307 H ALT Total Protein Albumin Ur Specific [place] Crossmatch 09/23/18 09/23/18 09/24/18 16:23 20:33 06:09 WBC RBC 2.47 L Hgb 8.0 L Hct 24.8 L MCV 100 H MCH 33 H MCHC RDW Plt Count Lymph % (Auto) [place] % (Auto) 11.1 H Lymph # [place] # Seg Neutrophils % Seg Neutrophils # POC ABG pCO2 POC ABG pO2 Sodium Potassium Chloride Carbon Dioxide BUN Creatinine Glucose POC Glucose 361 H 261 H ALT Total Protein Albumin Ur Specific [place] Crossmatch 09/24/18 09/24/18 09/24/18 06:09 08:07 12:06 WBC RBC Hgb Hct MCV MCH MCHC RDW Plt Count Lymph % (Auto) [place] % (Auto) Lymph # [place] # Seg Neutrophils % Seg Neutrophils # POC ABG pCO2 POC ABG pO2 Sodium Potassium Chloride 110.8 H Carbon Dioxide BUN 18 H Creatinine Glucose 135 H POC Glucose 130 H 154 H ALT Total Protein Albumin Ur Specific [place] Crossmatch 09/24/18 09/24/18 09/25/18 16:47 20:55 06:05 WBC RBC 2.14 L Hgb 7.0 L Hct 21.1 L MCV 98 H MCH 33 H MCHC RDW Plt Count Lymph % (Auto) [place] % (Auto) 10.3 H Lymph # [place] # Seg Neutrophils % Seg Neutrophils # POC ABG pCO2 POC ABG pO2 Sodium Potassium Chloride Carbon Dioxide BUN Creatinine Glucose POC Glucose 190 H 233 H ALT Total Protein Albumin Ur Specific [place] Crossmatch 09/25/18 09/25/18 09/25/18 06:05 08:06 11:13 WBC RBC Hgb Hct MCV MCH MCHC RDW Plt Count Lymph % (Auto) [place] % (Auto) Lymph # [place] # Seg Neutrophils % Seg Neutrophils # POC ABG pCO2 POC ABG pO2 Sodium 146 H Potassium Chloride 112.6 H Carbon Dioxide BUN 20 H Creatinine Glucose 243 H POC Glucose 248 H 274 H ALT Total Protein Albumin Ur Specific [place] Crossmatch 09/25/18 09/25/18 09/25/18 14:56 15:05 22:04 WBC RBC 2.31 L Hgb 7.6 L Hct 22.5 L MCV MCH 33 H MCHC RDW Plt Count Lymph % (Auto) [place] % (Auto) Lymph # [place] # Seg Neutrophils % Seg Neutrophils # POC ABG pCO2 POC ABG pO2 Sodium Potassium Chloride Carbon Dioxide BUN Creatinine Glucose POC Glucose 333 H ALT Total Protein Albumin Ur Specific [place] Crossmatch See Detail 09/26/18 09/26/18 09/26/18 03:35 05:15 05:15 WBC 12.6 H RBC 3.21 L Hgb Hct MCV MCH MCHC RDW Plt Count Lymph % (Auto) 10.2 L [place] % (Auto) 11.7 H Lymph # [place] # 1.5 H Seg Neutrophils % 78.0 H Seg Neutrophils # 9.9 H POC ABG pCO2 33.2 L POC ABG pO2 249 H Sodium Potassium Chloride 109.2 H Carbon Dioxide BUN 20 H Creatinine Glucose 234 H POC Glucose ALT Total Protein 5.7 L Albumin 3.2 L Ur Specific [place] Crossmatch 09/26/18 09/26/18 09/26/18 11:55 17:52 23:32 WBC RBC Hgb Hct MCV MCH MCHC RDW Plt Count Lymph % (Auto) [place] % (Auto) Lymph # [place] # Seg Neutrophils % Seg Neutrophils # POC ABG pCO2 POC ABG pO2 Sodium Potassium Chloride Carbon Dioxide BUN Creatinine Glucose POC Glucose 288 H 292 H 266 H ALT Total Protein Albumin Ur Specific [place] Crossmatch 09/27/18 09/27/18 09/27/18 03:57 04:18 05:01 WBC RBC 3.03 L Hgb 10.0 L Hct 29.6 L MCV 98 H MCH 33 H MCHC RDW Plt Count 138 L Lymph % (Auto) 10.8 L [place] % (Auto) 14.6 H Lymph # 1.1 L [place] # 1.5 H Seg Neutrophils % 74.2 H Seg Neutrophils # POC ABG pCO2 POC ABG pO2 Sodium Potassium 3.5 L Chloride 111.3 H Carbon Dioxide BUN Creatinine Glucose 220 H POC Glucose 250 H ALT 6 L Total Protein 5.4 L Albumin 2.9 L Ur Specific [place] Crossmatch 09/27/18 09/27/18 09/27/18 05:21 11:59 14:29 WBC RBC Hgb Hct MCV MCH MCHC RDW Plt Count Lymph % (Auto) [place] % (Auto) Lymph # [place] # Seg Neutrophils % Seg Neutrophils # POC ABG pCO2 31.1 L POC ABG pO2 148 H 118 H Sodium Potassium Chloride Carbon Dioxide BUN Creatinine Glucose POC Glucose 240 H ALT Total Protein Albumin Ur Specific [place] Crossmatch 09/27/18 09/27/18 09/28/18 18:16 23:26 03:57 WBC 12.7 H RBC 3.05 L Hgb 10.0 L Hct 30.0 L MCV 98 H MCH 33 H MCHC RDW 15.5 H Plt Count Lymph % (Auto) 9.5 L [place] % (Auto) 12.3 H Lymph # [place] # 1.6 H Seg Neutrophils % 77.6 H Seg Neutrophils # 9.9 H POC ABG pCO2 POC ABG pO2 Sodium Potassium Chloride Carbon Dioxide BUN Creatinine Glucose POC Glucose 266 H 242 H ALT Total Protein Albumin Ur Specific [place] Crossmatch 09/28/18 09/28/18 09/28/18 03:57 04:46 05:55 WBC RBC Hgb Hct MCV MCH MCHC RDW Plt Count Lymph % (Auto) [place] % (Auto) Lymph # [place] # Seg Neutrophils % Seg Neutrophils # POC ABG pCO2 POC ABG pO2 136 H Sodium Potassium Chloride 109.9 H Carbon Dioxide 21 L BUN Creatinine 0.6 L Glucose 245 H POC Glucose 270 H ALT Total Protein 5.7 L Albumin 2.8 L Ur Specific [place] Crossmatch Allied health notes reviewed: nursing
[2018-09-28] MEDS: APRESOLINE IV PRN (13:15)
--- NOTE | 2018-09-28 20:04 | Progress Note ---
Assessment and Plan - Patient Problems (1) LGI bleed Current Visit: Yes Plan to address problem: Follow GI , monitor labs. notes reviewed from GI. this is severe diverticular dz., not amendable to surgery. See notes above. Had some evidence of loss. same as above. (2) Dementia Current Visit: Yes Status: Chronic Qualifiers: Alzheimer's disease onset: unspecified onset Dementia behavioral disturbance: without behavioral disturbance Plan to address problem: supportive care. (3) Abdominal pain Current Visit: Yes Status: Acute Plan to address problem: Await scope. resolved. (4) Anemia Current Visit: Yes Status: Acute Plan to address problem: Monitor labs PRN. Transfusion, as necessary. same as above. Stable, post bld transfusion. 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 Awaiting neurology eval. Spoken to neurology. Subjective Date of service: 09/28/18 Principal diagnosis: Ac hypoxemic resp failure; Acute CVA; Ac GI bleed; Ac encephalopathy; DM II Interval history: Patient seen/examined, resting in bed, labs/ notes/consults reviewed. Patient scheduled for a scope tomorrow.I have given some transfusion, and will do H/h q6hrs. Patient seen/examined, resting in bed, labs/ operative notes reviewed.Will restart on IVF, and restart diet tomorrow. Patient seen/examined, resting in bed, notes/labs reviewed. i had spoken to her daughter yesterday, with full update. She is not keen to any aggressive measures, ophelia surgery. She is contemplating AND/vs hospice.She was suppose to think about it, and let us know.Will continue with supportive care for now. Patient seen/examined, resting in bed, labs reviewed. No active bleeding. GI/Surgery notes reviewed also. Patient seen/examined, resting in bed, notes/labs reviewed.No report of any active bleeding at this time. If this remains this way, will discharge back to the [place] 2days ,or so. patient seen/examined, resting in bed, Had a code blue called earlier, and transfered to the unit, and intubated. Ct with contrast showed sub acute CELIO distribution stroke, and acute non hemorrhagic CVA. will consult neurology director clinical operations.Hgb dropped by less than a gram, from yesterday, obviously still bleeding. Once feasible, will do red cell tagged scan., and possibly IR intervention, with Embolization of the offending vessel, depending on how far the family wants to go.For now, will continue with replacement blood transfusion. Patient seen/examined, resting in bed, labs reviewed, and stable, post transfusion of 2units PRBC. Awaiting neurology eval/REC. patient seen/examined, resting in bed, still on the vent, but awoken easily.I have reviewed the Neurologist notes. patient s record reviewed, I have spoken to neurology today, about plan of care. Objective - Constitutional Vitals: Vital Signs - 12hr 09/28/18 09/28/18 09/28/18 08:01 08:30 09:01 Temperature Pulse Rate 84 85 86 Pulse Rate [ Anterior Bilateral] Pulse Rate [ From Monitor] Respiratory 19 20 21 Rate Respiratory Rate [Anterior Bilateral] Blood Pressure 119/45 120/44 120/44 O2 Sat by Pulse 100 100 100 Oximetry 09/28/18 09/28/18 09/28/18 09:30 09:37 10:00 Temperature Pulse Rate 85 85 82 Pulse Rate [ Anterior Bilateral] Pulse Rate [ From Monitor] Respiratory 20 20 Rate Respiratory Rate [Anterior Bilateral] Blood Pressure 151/57 151/57 139/50 O2 Sat by Pulse 100 100 Oximetry 09/28/18 09/28/18 09/28/18 10:31 11:00 11:31 Temperature Pulse Rate 85 79 74 Pulse Rate [ Anterior Bilateral] Pulse Rate [ From Monitor] Respiratory 21 18 17 Rate Respiratory Rate [Anterior Bilateral] Blood Pressure 153/93 153/93 134/53 O2 Sat by Pulse 100 100 100 Oximetry 09/28/18 09/28/18 09/28/18 11:56 12:00 12:01 Temperature 100.0 F H Pulse Rate 74 83 80 Pulse Rate [ Anterior Bilateral] Pulse Rate [ 85 From Monitor] Respiratory 18 21 20 Rate Respiratory Rate [Anterior Bilateral] Blood Pressure 134/53 150/79 O2 Sat by Pulse 100 100 100 Oximetry 09/28/18 09/28/18 09/28/18 12:30 13:01 13:15 Temperature Pulse Rate 76 85 81 Pulse Rate [ Anterior Bilateral] Pulse Rate [ From Monitor] Respiratory 17 20 Rate Respiratory Rate [Anterior Bilateral] Blood Pressure 142/60 182/70 179/58 O2 Sat by Pulse 100 100 Oximetry 09/28/18 09/28/18 09/28/18 13:31 14:00 14:30 Temperature Pulse Rate 87 89 84 Pulse Rate [ Anterior Bilateral] Pulse Rate [ From Monitor] Respiratory 19 22 21 Rate Respiratory Rate [Anterior Bilateral] Blood Pressure 113/44 121/43 121/51 O2 Sat by Pulse 95 95 91 Oximetry 09/28/18 09/28/18 09/28/18 15:01 15:06 15:30 Temperature Pulse Rate 91 H 84 86 Pulse Rate [ Anterior Bilateral] Pulse Rate [ From Monitor] Respiratory 22 21 20 Rate Respiratory Rate [Anterior Bilateral] Blood Pressure 103/52 103/52 102/51 O2 Sat by Pulse 93 100 95 Oximetry 09/28/18 09/28/18 09/28/18 16:00 16:18 16:29 Temperature 100.2 F H Pulse Rate 85 Pulse Rate [ 90 88 Anterior Bilateral] Pulse Rate [ 89 From Monitor] Respiratory 20 Rate Respiratory 22 22 Rate [Anterior Bilateral] Blood Pressure 95/44 O2 Sat by Pulse 97 Oximetry 09/28/18 09/28/18 09/28/18 16:31 17:01 17:30 Temperature Pulse Rate 89 87 84 Pulse Rate [ Anterior Bilateral] Pulse Rate [ From Monitor] Respiratory 28 H 30 H 38 H Rate Respiratory Rate [Anterior Bilateral] Blood Pressure 144/55 104/44 89/50 O2 Sat by Pulse 99 98 Oximetry 09/28/18 09/28/18 09/28/18 17:32 18:00 18:30 Temperature Pulse Rate 97 H 95 H 84 Pulse Rate [ Anterior Bilateral] Pulse Rate [ From Monitor] Respiratory 35 H 29 H 28 H Rate Respiratory Rate [Anterior Bilateral] Blood Pressure 113/54 120/50 112/55 O2 Sat by Pulse 99 98 99 Oximetry 09/28/18 09/28/18 19:01 19:49 Temperature Pulse Rate 85 97 H Pulse Rate [ Anterior Bilateral] Pulse Rate [ From Monitor] Respiratory 30 H 28 H Rate Respiratory Rate [Anterior Bilateral] Blood Pressure 104/53 118/61 O2 Sat by Pulse 98 99 Oximetry General appearance: Present: no acute distress - EENT Eyes: PERRL, EOM intact ENT: hearing intact, clear oral mucosa Ears: bilateral: normal - Neck Neck: supple, normal ROM - Respiratory Respiratory effort: normal Respiratory: bilateral: CTA - Breasts Breasts: deferred - Cardiovascular Rhythm: regular Heart Sounds: Present: S1 & S2. Absent: gallop, rub Extremities: pulses intact, No edema, normal color, Full ROM - Gastrointestinal General gastrointestinal: Present: soft, non-tender, non-distended, normal bowel sounds Rectal Exam: deferred - Genitourinary Female genitourinary: deferred - Integumentary Integumentary: clear, warm, dry - Musculoskeletal Musculoskeletal: 1, strength equal bilaterally - Neurologic Neurologic: moves all extremities - Labs CBC & Chem 7: 09/28/18 03:57 09/28/18 03:57 Labs: Abnormal lab results 09/27/18 09/28/18 09/28/18 Range/Units 23:26 03:57 03:57 WBC 12.7 H (4.5-11.0) K/mm3 RBC 3.05 L (3.65-5.03) M/mm3 Hgb 10.0 L (10.1-14.3) gm/dl Hct 30.0 L (30.3-42.9) % MCV 98 H (79-97) fl MCH 33 H (28-32) pg RDW 15.5 H (13.2-15.2) % Lymph % (Auto) 9.5 L (13.4-35.0) % [place] % (Auto) 12.3 H (0.0-7.3) % [place] # 1.6 H (0.0-0.8) K/mm3 Seg Neutrophils % 77.6 H (40.0-70.0) % Seg Neutrophils # 9.9 H (1.8-7.7) K/mm3 POC ABG pCO2 (35-45) POC ABG pO2 (80-105) Chloride 109.9 H (98-107) mmol/L Carbon Dioxide 21 L (22-30) mmol/L Creatinine 0.6 L (0.7-1.2) mg/dL Glucose 245 H (65-100) mg/dL POC Glucose 242 H (70-105) Total Protein 5.7 L (6.3-8.2) g/dL Albumin 2.8 L (3.9-5) g/dL 09/28/18 09/28/18 09/28/18 Range/Units 04:46 05:55 11:51 WBC (4.5-11.0) K/mm3 RBC (3.65-5.03) M/mm3 Hgb (10.1-14.3) gm/dl Hct (30.3-42.9) % MCV (79-97) fl MCH (28-32) pg RDW (13.2-15.2) % Lymph % (Auto) (13.4-35.0) % [place] % (Auto) (0.0-7.3) % [place] # (0.0-0.8) K/mm3 Seg Neutrophils % (40.0-70.0) % Seg Neutrophils # (1.8-7.7) K/mm3 POC ABG pCO2 (35-45) POC ABG pO2 136 H (80-105) Chloride (98-107) mmol/L Carbon Dioxide (22-30) mmol/L Creatinine (0.7-1.2) mg/dL Glucose (65-100) mg/dL POC Glucose 270 H 335 H (70-105) Total Protein (6.3-8.2) g/dL Albumin (3.9-5) g/dL 09/28/18 09/28/18 09/28/18 Range/Units 15:11 17:46 18:04 WBC (4.5-11.0) K/mm3 RBC (3.65-5.03) M/mm3 Hgb (10.1-14.3) gm/dl Hct (30.3-42.9) % MCV (79-97) fl MCH (28-32) pg RDW (13.2-15.2) % Lymph % (Auto) (13.4-35.0) % [place] % (Auto) (0.0-7.3) % [place] # (0.0-0.8) K/mm3 Seg Neutrophils % (40.0-70.0) % Seg Neutrophils # (1.8-7.7) K/mm3 POC ABG pCO2 32.6 L (35-45) POC ABG pO2 116 H 123 H (80-105) Chloride (98-107) mmol/L Carbon Dioxide (22-30) mmol/L Creatinine (0.7-1.2) mg/dL Glucose (65-100) mg/dL POC Glucose 261 H (70-105) Total Protein (6.3-8.2) g/dL Albumin (3.9-5) g/dL Medications & Allergies - Medications Allergies/Adverse Reactions: Allergies aspirin Allergy (Verified 09/19/18 14:52) Hives codeine Allergy (Verified 09/19/18 14:52) Itching Home Medications: Home Medications Medication Instructions Recorded Confirmed Last Taken Type AtorvaSTATin [Lipitor] 20 mg PO QHS #30 tablet 04/18/18 09/19/18 05/13/18 22:00 Rx ISOSORBIDE MONOnitrate [Imdur ER] 60 mg PO QDAY #30 tablet 04/18/18 09/19/18 05/14/18 10:00 Rx Aspirin EC 81 mg PO QDAY #30 tablet. 05/17/18 09/19/18 Unknown Rx Atenolol [Tenormin] 50 mg PO QDAY tablet 05/17/18 09/19/18 Unknown Rx Acetaminophen [Tylenol] 650 mg PO Q4HR PRN 09/19/18 09/19/18 Unknown History Cetirizine HCl [Zyrtec 10mg tab] 10 mg PO QDAY PRN 09/19/18 09/19/18 Unknown History Donepezil [Aricept] 5 mg PO HS 09/19/18 09/19/18 Unknown History Insulin Aspart [Novolog] See Protocol SUB-Q BID 09/19/18 09/19/18 Unknown History Lisinopril [Zestril TAB] 40 mg PO QDAY 09/19/18 09/19/18 Unknown History Meloxicam [Mobic] 15 mg PO QDAY 09/19/18 09/19/18 Unknown History cloNIDine [Catapres] 0.1 mg PO Q12H 09/19/18 09/19/18 Unknown History traMADol [Ultram] 50 mg PO Q8HR PRN 09/19/18 09/19/18 Unknown History Active Medications: Generic Name Dose Route Start Last Admin Trade Name Freq PRN Reason Stop Dose Admin Acetaminophen 650 mg 09/21/18 13:00 09/23/18 09:47 Tylenol PO 650 mg Q4H PRN Administration Pain, Mild (1-3) Lipase/Protease/Amylase 1 each 09/27/18 13:32 Pancreaze 10,500 Unit FEEDTUBE PRN PRN For Clogged Feeding Tube Atenolol 50 mg 09/20/18 10:00 09/28/18 09:37 Tenormin PO 50 mg QDAY RIRI Administration Atorvastatin Calcium 20 mg 09/19/18 22:00 09/27/18 21:29 Lipitor PO 20 mg QHS RIRI Administration Dextrose 50 ml 09/25/18 14:55 D50w (25gm) Syringe IV PRN PRN Hypoglycemia Donepezil HCl 5 mg 09/19/18 22:00 09/27/18 21:29 Aricept PO 5 mg HS RIRI Administration Fentanyl 50 mcg 09/25/18 15:39 Sublimaze IV Q10MIN PRN ANALGESIA Hydralazine HCl 20 mg 09/23/18 04:39 09/28/18 13:15 Apresoline IV 20 mg Q4H PRN Administration Blood Pressure Hydrophilic Ointment 1 applic 09/25/18 15:39 Vaseline Lip Therapy TP Q2H PRN Dry Lips Dextrose/Sodium Chloride 1,000 mls @ 42 mls/hr 09/24/18 17:00 09/28/18 08:30 D5/0.45ns IV 42 mls/hr DIRECT RIRI Administration Fentanyl Citrate 2,000 mcg in 100 mls @ 3.175 mls/hr 09/25/18 16:00 Fentanyl Drip Premix IV TITR RIRI Protocol 1 MCG/KG/HR Sodium Chloride 1,000 mls @ 25 mls/hr 09/27/18 16:00 Nacl 0.9% 1000 Ml IV DIRECT RIRI Insulin Glargine 5 units 09/27/18 12:00 09/28/18 09:38 Lantus SUB-Q 5 units DAILY RIRI Administration Insulin Human Regular 0 units 09/26/18 12:00 09/28/18 18:00 Humulin R SUB-Q 4 units Q6HR RIRI Administration Protocol Isosorbide Dinitrate 20 mg 09/26/18 10:00 09/28/18 13:15 Isordil Titradose PO 20 mg Q8HR RIRI Administration Lansoprazole 30 mg 09/26/18 10:00 09/28/18 09:37 Prevacid Solutab FEEDTUBE 30 mg BID RIRI Administration Lisinopril 40 mg 09/20/18 10:00 09/28/18 09:37 Zestril PO 40 mg QDAY RIRI Administration Loratadine 10 mg 09/19/18 20:04 09/21/18 17:48 Claritin PO 10 mg DAILY PRN Administration Allergy Symptoms Multi-Ingred Cream/Lotion/Oil/Oint 1 applic 09/25/18 15:39 Artificial Tears Ophth Oint OU Q4H PRN Dry Eye(s) Simple Syrup 15 ml 09/27/18 13:32 Simple Syrup FEEDTUBE PRN PRN Hypoglycemia Simple Syrup 30 ml 09/27/18 13:32 Simple Syrup FEEDTUBE PRN PRN Hypoglycemia Sodium Bicarbonate 325 mg 09/27/18 13:32 Sodium Bicarbonate FEEDTUBE PRN PRN For Clogged Feeding Tube Tramadol HCl 50 mg 09/21/18 13:00 Ultram PO Q8H PRN Pain, Moderate (4-6)
[2018-09-28] MEDS: ARICEPT PO SCH (21:59)
--- NOTE | 2018-09-29 02:11 | XRay Report ---
CHEST 1 VIEW INDICATION / CLINICAL INFORMATION: follow up respiratory failure. COMPARISON: 09/28/2018 FINDINGS: SUPPORT DEVICES: Stable, satisfactory device positioning. HEART / MEDIASTINUM: No significant abnormality. LUNGS / PLEURA: Slight inhomogeneous opacity has developed in the left lower lung. No pneumothorax. ADDITIONAL FINDINGS: No significant additional findings. IMPRESSION: 1. New minimal patchy density in the left lower lobe, atelectasis versus developing airspace disease. Signer Name: Oc Garces MD Signed: 09/29/2018 2:07 AM Workstation Name: [id number]
--- NOTE | 2018-09-29 03:30 | Consultation ---
HISTORY OF PRESENT ILLNESS: This is an 83-year-old female that was admitted to [facility] with a prior history of known dementia, stroke, history of diabetes, heart disease, chronic confusion. She is admitted with history of diverticular bleeding on the left side with polyps. She has had previous history of having endoscopy in 2015. The patient presented to the hospital, she was complaining specifically of GI bleed. She subsequently was noted to be taking atorvastatin, isosorbide, aspirin 81 mg enteric coated. When she was admitted, her blood pressure was 115/70. She had a hematocrit of 22.4 and her glucose was 191, sodium 140, potassium 4.6, chloride was 107. Subsequent to admission, the patient was admitted because of abdominal tenderness, dark red blood per stool, hematocrit was low and this was addressed. Subsequently, the patient was seen by GI, Dr. Bills, who saw the patient in consultation. A CT of the abdomen was recommended. The patient had normal visceral vascular supply. There was a negative study. There was no evidence to suggest bowel ischemia. She was subsequently admitted and remained clinically stable and then subsequently on or around 09/25/2018, was noted to have a new onset of left-sided weakness. The patient was seen by Dr. Jorge Shaw and the patient was noted to have respiratory distress, was intubated, placed on ventilatory support. Subsequent to that, the patient's labs were reviewed. CT was ordered and she was found to have large stroke involving the right anterior cerebral artery distribution. Review of the CT showed an old stroke in the right cerebral hemisphere. My examination showed her to be slightly sedated. She was intubated at the time I saw her. She has a right gaze preference. She does not move the left leg at all, moves the left arm slightly and moves the left face normally. She is not having seizures. She is easily arousable, is not comatose. IMPRESSION: From reviewing the record, there are simultaneously several things going on, GI bleed, low hematocrit as well as respiratory insufficiency. She has had prior strokes and what appears to be she has had an acute stroke down the right anterior cerebral artery distribution. I have gone over these films with Radiology directly. The stroke is within the watershed distribution of the right ICA. Clearly, this could also be related to a low hematocrit being in the 20s, alternatively sometimes the flow in the anterior cerebral is very sparse with age and one can get a watershed infarct with a low blood circulation and this may be an ischemic stroke due to hemodynamic factors. This may in fact be the case given her stated age of 83 and known association with GI bleeding in patients that are elderly as being increased link with strokes due to autonomic instability. We would recommend further assessment. JOB# [id number] EBENEZER/ASA
[2018-09-29 04:58] LABS: Basophils % (Auto) 0.1 % (0.0-1.8); Hematocrit 25.4 % (30.3-42.9); Hemoglobin 8.7 gm/dl (10.1-14.3); Lymphocytes # (Auto) 0.9 K/mm3 (1.2-5.4); Lymphocytes % (Auto) 7.8 % (13.4-35.0); Mean Corpuscular HGB Conc 34 % (30-34); Mean Corpuscular Volume 97 fl (79-97); Monocytes # (Auto) 1.4 K/mm3 (0.0-0.8); Monocytes % (Auto) 12.4 % (0.0-7.3); Platelet Count 182 K/mm3 (140-440); Red Blood Count 2.62 M/mm3 (3.65-5.03); Red Cell Distribution Width 15.2 % (13.2-15.2)
[2018-09-29 05:11] LABS: Alanine Aminotransferase 6 units/L (7-56); Albumin 2.7 g/dL (3.9-5); BUN/Creatinine Ratio 24; Blood Urea Nitrogen 17 mg/dL (7-17); Calcium 8.4 mg/dL (8.4-10.2); Hemolysis Index 1
[2018-09-29] MEDS: ISORDIL TITRADOSE PO SCH ×3 (06:41→21:14)
[2018-09-29] MEDS: HumuLIN R SUB-Q SCH ×3 (06:41→18:20)
--- NOTE | 2018-09-29 08:36 | Progress Note ---
Assessment and Plan Acute hypoxemic respiratory failure. Acute gastrointestinal bleed. Acute encephalopathy. History of coronary artery disease. History of gastroesophageal reflux disease. History of diabetes. Hypertension. History of a prior cerebrovascular accident. Arthritis. Dementia - continue bronchodilators with pulmonary hygiene per RT - follow clinically off antibiotics - acute CVA explains breathing pattern - continue enteral nutrition as tolerated - continue supplemental oxygen as needed to keep O2 sat's > 90% -CXR and ABG as indicated - VAP bundle addressed - continue accuchecks with glycemic control per SSI for target blood glucose <180mg/dL - Prevention of delirium, maintenance of sleep-wake cycle - neurolology evaluation ongoing - VTE and Stress ulcer prophylaxis - continue other care per attending / other consultants ... re-evaluate in am & prn CONDITION: CRITICAL PROGNOSIS: GUARDED CODE STATUS: FULL CODE The high probability of a clinically significant, sudden or life-threatening det erioration of the respiratory, cardiac and neurologic systems required my full and direct attention, intervention and personal management. The aggregate critical care time was [35] minutes without overlap. Time includes spent on; [x] Data Review and interpretation [x] Patient assessment and monitoring of vital signs [x] Documentation [x] Medication orders and management Subjective Date of service: 09/29/18 Principal diagnosis: Ac hypoxemic resp failure; Acute CVA; Ac GI bleed; Ac encephalopathy; DM II Interval history: Patient is seen today for: Acute hypoxemic respiratory failure; Acute CVA; Acute gastrointestinal bleed; Acute encephalopathy; CAD; GERD; DM II; HTN; Arthritis; Dementia. Seen and examined at bedside; 24hour events reviewed; nursing and respiratory care staff consulted; no adverse overnight events reported to me;extubated on BIPAP; following simple commands; No N/V/F/C; CT brain revealed acute on subacute CVA ; no gross GI bleeding; will open eyes with painful stimuli, Objective Vital Signs - 12hr 09/28/18 09/28/18 09/28/18 21:01 21:59 22:00 Temperature Pulse Rate 86 87 86 Pulse Rate [ From Monitor] Respiratory 26 H 27 H Rate Blood Pressure 141/52 140/51 144/43 O2 Sat by Pulse Oximetry 09/28/18 09/28/18 09/28/18 23:00 23:33 23:55 Temperature 100.9 F H Pulse Rate 84 83 Pulse Rate [ From Monitor] Respiratory 28 H 28 H Rate Blood Pressure 98/50 117/42 O2 Sat by Pulse 86 90 Oximetry 09/29/18 09/29/18 09/29/18 00:00 00:23 01:00 Temperature Pulse Rate 83 77 84 Pulse Rate [ From Monitor] Respiratory 27 H 25 H 27 H Rate Blood Pressure 124/47 124/47 111/44 O2 Sat by Pulse 99 100 100 Oximetry 09/29/18 09/29/18 09/29/18 02:01 03:00 03:58 Temperature 100.6 F H Pulse Rate 77 80 Pulse Rate [ From Monitor] Respiratory 27 H 27 H Rate Blood Pressure 136/49 136/58 O2 Sat by Pulse 100 97 Oximetry 09/29/18 09/29/18 09/29/18 04:00 04:47 05:00 Temperature Pulse Rate 86 80 80 Pulse Rate [ From Monitor] Respiratory 23 28 H 29 H Rate Blood Pressure 131/50 143/59 148/62 O2 Sat by Pulse 99 96 95 Oximetry 09/29/18 09/29/18 09/29/18 06:00 06:41 07:01 Temperature Pulse Rate 86 88 92 H Pulse Rate [ From Monitor] Respiratory 28 H 36 H Rate Blood Pressure 163/63 160/58 128/60 O2 Sat by Pulse 93 86 Oximetry 09/29/18 09/29/18 09/29/18 07:45 08:00 08:01 Temperature Pulse Rate 91 H 87 87 Pulse Rate [ 87 From Monitor] Respiratory 26 H 32 H 31 H Rate Blood Pressure 160/58 160/62 O2 Sat by Pulse 93 99 99 Oximetry Constitutional: no acute distress, other (elderly looking AAF, normocephalic and atraumatic with mildly increased resp effort on BIPAP) Eyes: non-icteric ENT: oropharynx moist Neck: supple, no lymphadenopathy, no JVD Effort: mildly labored Ascultation: Bilateral: diminished breath sounds, rhonchi Percussion: Bilateral: not dull Cardiovascular: regular rate and rhythm, other (S1,S2, no murmurs) Gastrointestinal: normoactive bowel sounds, soft, non-tender, non-distended, other (Feeding tube in nares) Integumentary: normal Extremities: no cyanosis, no edema, pulses normal, no ischemia or petechiae Neurologic: pupils equal and round, other (Left hemiparesis, will squeeze my hand with her right hand) Psychiatric: other (unable to assess) CBC and BMP: 10/02/18 16:17 10/02/18 16:17 ABG, PT/INR, D-dimer: ABG POC ABG pH 7.364 (7.35-7.45) 09/28/18 18:04 POC ABG pCO2 38.2 (35-45) 09/28/18 18:04 POC ABG pO2 123 (80-105) H 09/28/18 18:04 POC ABG HCO3 21.8 (22-26 mml/L) 09/28/18 18:04 POC ABG Total CO2 23 (23-27mmol/L) 09/28/18 18:04 POC ABG O2 Sat 99 09/28/18 18:04 PT/INR, D-dimer PT 13.4 Sec. (12.2-14.9) 09/19/18 16:34 INR 1.05 (0.87-1.13) 09/19/18 16:34 Abnormal lab findings: Abnormal Labs 09/19/18 09/19/18 09/19/18 15:11 15:11 16:01 WBC 3.7 L RBC 2.85 L Hgb 9.6 L Hct 28.0 L MCV 99 H MCH 34 H MCHC RDW 12.7 L Plt Count Lymph % (Auto) 41.9 H [place] % (Auto) 14.9 H Lymph # [place] # Seg Neutrophils % Seg Neutrophils # 1.5 L POC ABG pCO2 POC ABG pO2 Sodium Potassium Chloride 107.9 H Carbon Dioxide BUN 23 H Creatinine Glucose 191 H POC Glucose ALT Total Protein Albumin Ur Specific [place] 1.031 H Crossmatch 09/19/18 09/19/18 09/20/18 21:01 21:10 00:22 WBC RBC 2.39 L Hgb 8.1 L Hct 23.6 L MCV 99 H MCH 34 H MCHC RDW 12.5 L Plt Count Lymph % (Auto) [place] % (Auto) 9.9 H Lymph # [place] # Seg Neutrophils % Seg Neutrophils # POC ABG pCO2 POC ABG pO2 Sodium Potassium Chloride Carbon Dioxide BUN Creatinine Glucose POC Glucose 229 H ALT Total Protein Albumin Ur Specific [place] Crossmatch See Detail 09/20/18 09/20/18 09/20/18 06:11 06:15 08:17 WBC RBC 2.27 L Hgb 7.6 L Hct 22.4 L MCV 99 H MCH 34 H MCHC RDW 12.7 L Plt Count Lymph % (Auto) 35.1 H [place] % (Auto) 11.4 H Lymph # [place] # Seg Neutrophils % Seg Neutrophils # POC ABG pCO2 POC ABG pO2 Sodium Potassium Chloride Carbon Dioxide BUN Creatinine Glucose POC Glucose 246 H 253 H ALT Total Protein Albumin Ur Specific [place] Crossmatch 09/20/18 09/20/18 09/20/18 11:52 17:17 21:10 WBC RBC Hgb Hct MCV MCH MCHC RDW Plt Count Lymph % (Auto) [place] % (Auto) Lymph # [place] # Seg Neutrophils % Seg Neutrophils # POC ABG pCO2 POC ABG pO2 Sodium Potassium Chloride Carbon Dioxide BUN Creatinine Glucose POC Glucose 278 H 241 H 245 H ALT Total Protein Albumin Ur Specific [place] Crossmatch 09/21/18 09/21/18 09/21/18 05:15 07:43 16:35 WBC RBC 3.35 L Hgb Hct MCV MCH 33 H MCHC 35 H RDW Plt Count 134 L Lymph % (Auto) [place] % (Auto) 12.4 H Lymph # [place] # 1.0 H Seg Neutrophils % Seg Neutrophils # POC ABG pCO2 POC ABG pO2 Sodium Potassium Chloride Carbon Dioxide BUN Creatinine Glucose POC Glucose 278 H 237 H ALT Total Protein Albumin Ur Specific [place] Crossmatch 09/21/18 09/21/18 09/22/18 19:20 19:42 01:05 WBC RBC 2.66 L 2.43 L Hgb 8.7 L 8.0 L Hct 25.9 L D 23.4 L MCV MCH 33 H 33 H MCHC RDW Plt Count 137 L 127 L Lymph % (Auto) 12.7 L [place] % (Auto) 11.0 H Lymph # [place] # 1.1 H Seg Neutrophils % 75.8 H Seg Neutrophils # POC ABG pCO2 POC ABG pO2 Sodium Potassium Chloride Carbon Dioxide BUN Creatinine Glucose POC Glucose 264 H ALT Total Protein Albumin Ur Specific [place] Crossmatch 09/22/18 09/22/18 09/22/18 05:20 07:29 11:48 WBC RBC 2.43 L Hgb 8.0 L Hct 23.4 L MCV MCH 33 H MCHC RDW Plt Count 118 L Lymph % (Auto) [place] % (Auto) 14.0 H Lymph # [place] # 1.1 H Seg Neutrophils % Seg Neutrophils # POC ABG pCO2 POC ABG pO2 Sodium Potassium Chloride Carbon Dioxide BUN Creatinine Glucose POC Glucose 335 H 300 H ALT Total Protein Albumin Ur Specific [place] Crossmatch 09/22/18 09/22/18 09/23/18 16:55 21:04 04:52 WBC 4.4 L RBC 2.40 L Hgb 8.0 L Hct 23.4 L MCV 98 H MCH 33 H MCHC RDW Plt Count 115 L Lymph % (Auto) [place] % (Auto) 12.2 H Lymph # [place] # Seg Neutrophils % Seg Neutrophils # POC ABG pCO2 POC ABG pO2 Sodium Potassium Chloride Carbon Dioxide BUN Creatinine Glucose POC Glucose 340 H 285 H ALT Total Protein Albumin Ur Specific [place] Crossmatch 09/23/18 09/23/18 09/23/18 04:52 07:33 11:23 WBC RBC Hgb Hct MCV MCH MCHC RDW Plt Count Lymph % (Auto) [place] % (Auto) Lymph # [place] # Seg Neutrophils % Seg Neutrophils # POC ABG pCO2 POC ABG pO2 Sodium Potassium Chloride 110.6 H Carbon Dioxide BUN 19 H Creatinine Glucose 220 H POC Glucose 216 H 307 H ALT Total Protein Albumin Ur Specific [place] Crossmatch 09/23/18 09/23/18 09/24/18 16:23 20:33 06:09 WBC RBC 2.47 L Hgb 8.0 L Hct 24.8 L MCV 100 H MCH 33 H MCHC RDW Plt Count Lymph % (Auto) [place] % (Auto) 11.1 H Lymph # [place] # Seg Neutrophils % Seg Neutrophils # POC ABG pCO2 POC ABG pO2 Sodium Potassium Chloride Carbon Dioxide BUN Creatinine Glucose POC Glucose 361 H 261 H ALT Total Protein Albumin Ur Specific [place] Crossmatch 09/24/18 09/24/18 09/24/18 06:09 08:07 12:06 WBC RBC Hgb Hct MCV MCH MCHC RDW Plt Count Lymph % (Auto) [place] % (Auto) Lymph # [place] # Seg Neutrophils % Seg Neutrophils # POC ABG pCO2 POC ABG pO2 Sodium Potassium Chloride 110.8 H Carbon Dioxide BUN 18 H Creatinine Glucose 135 H POC Glucose 130 H 154 H ALT Total Protein Albumin Ur Specific [place] Crossmatch 09/24/18 09/24/18 09/25/18 16:47 20:55 06:05 WBC RBC 2.14 L Hgb 7.0 L Hct 21.1 L MCV 98 H MCH 33 H MCHC RDW Plt Count Lymph % (Auto) [place] % (Auto) 10.3 H Lymph # [place] # Seg Neutrophils % Seg Neutrophils # POC ABG pCO2 POC ABG pO2 Sodium Potassium Chloride Carbon Dioxide BUN Creatinine Glucose POC Glucose 190 H 233 H ALT Total Protein Albumin Ur Specific [place] Crossmatch 09/25/18 09/25/18 09/25/18 06:05 08:06 11:13 WBC RBC Hgb Hct MCV MCH MCHC RDW Plt Count Lymph % (Auto) [place] % (Auto) Lymph # [place] # Seg Neutrophils % Seg Neutrophils # POC ABG pCO2 POC ABG pO2 Sodium 146 H Potassium Chloride 112.6 H Carbon Dioxide BUN 20 H Creatinine Glucose 243 H POC Glucose 248 H 274 H ALT Total Protein Albumin Ur Specific [place] Crossmatch 09/25/18 09/25/18 09/25/18 14:56 15:05 22:04 WBC RBC 2.31 L Hgb 7.6 L Hct 22.5 L MCV MCH 33 H MCHC RDW Plt Count Lymph % (Auto) [place] % (Auto) Lymph # [place] # Seg Neutrophils % Seg Neutrophils # POC ABG pCO2 POC ABG pO2 Sodium Potassium Chloride Carbon Dioxide BUN Creatinine Glucose POC Glucose 333 H ALT Total Protein Albumin Ur Specific [place] Crossmatch See Detail 09/26/18 09/26/18 09/26/18 03:35 05:15 05:15 WBC 12.6 H RBC 3.21 L Hgb Hct MCV MCH MCHC RDW Plt Count Lymph % (Auto) 10.2 L [place] % (Auto) 11.7 H Lymph # [place] # 1.5 H Seg Neutrophils % 78.0 H Seg Neutrophils # 9.9 H POC ABG pCO2 33.2 L POC ABG pO2 249 H Sodium Potassium Chloride 109.2 H Carbon Dioxide BUN 20 H Creatinine Glucose 234 H POC Glucose ALT Total Protein 5.7 L Albumin 3.2 L Ur Specific [place] Crossmatch 09/26/18 09/26/18 09/26/18 11:55 17:52 23:32 WBC RBC Hgb Hct MCV MCH MCHC RDW Plt Count Lymph % (Auto) [place] % (Auto) Lymph # [place] # Seg Neutrophils % Seg Neutrophils # POC ABG pCO2 POC ABG pO2 Sodium Potassium Chloride Carbon Dioxide BUN Creatinine Glucose POC Glucose 288 H 292 H 266 H ALT Total Protein Albumin Ur Specific [place] Crossmatch 07/09/27/18 09/27/18 03:57 04:18 05:01 WBC RBC 3.03 L Hgb 10.0 L Hct 29.6 L MCV 98 H MCH 33 H MCHC RDW Plt Count 138 L Lymph % (Auto) 10.8 L [place] % (Auto) 14.6 H Lymph # 1.1 L [place] # 1.5 H Seg Neutrophils % 74.2 H Seg Neutrophils # POC ABG pCO2 POC ABG pO2 Sodium Potassium 3.5 L Chloride 111.3 H Carbon Dioxide BUN Creatinine Glucose 220 H POC Glucose 250 H ALT 6 L Total Protein 5.4 L Albumin 2.9 L Ur Specific [place] Crossmatch 09/27/18 09/27/18 09/27/18 05:21 11:59 14:29 WBC RBC Hgb Hct MCV MCH MCHC RDW Plt Count Lymph % (Auto) [place] % (Auto) Lymph # [place] # Seg Neutrophils % Seg Neutrophils # POC ABG pCO2 31.1 L POC ABG pO2 148 H 118 H Sodium Potassium Chloride Carbon Dioxide BUN Creatinine Glucose POC Glucose 240 H ALT Total Protein Albumin Ur Specific [place] Crossmatch 09/27/18 09/27/18 09/28/18 18:16 23:26 03:57 WBC 12.7 H RBC 3.05 L Hgb 10.0 L Hct 30.0 L MCV 98 H MCH 33 H MCHC RDW 15.5 H Plt Count Lymph % (Auto) 9.5 L [place] % (Auto) 12.3 H Lymph # [place] # 1.6 H Seg Neutrophils % 77.6 H Seg Neutrophils # 9.9 H POC ABG pCO2 POC ABG pO2 Sodium Potassium Chloride Carbon Dioxide BUN Creatinine Glucose POC Glucose 266 H 242 H ALT Total Protein Albumin Ur Specific [place] Crossmatch 09/28/18 09/28/18 09/28/18 03:57 04:46 05:55 WBC RBC Hgb Hct MCV MCH MCHC RDW Plt Count Lymph % (Auto) [place] % (Auto) Lymph # [place] # Seg Neutrophils % Seg Neutrophils # POC ABG pCO2 POC ABG pO2 136 H Sodium Potassium Chloride 109.9 H Carbon Dioxide 21 L BUN Creatinine 0.6 L Glucose 245 H POC Glucose 270 H ALT Total Protein 5.7 L Albumin 2.8 L Ur Specific [place] Crossmatch 09/28/18 09/28/18 09/28/18 11:51 15:11 17:46 WBC RBC Hgb Hct MCV MCH MCHC RDW Plt Count Lymph % (Auto) [place] % (Auto) Lymph # [place] # Seg Neutrophils % Seg Neutrophils # POC ABG pCO2 32.6 L POC ABG pO2 116 H Sodium Potassium Chloride Carbon Dioxide BUN Creatinine Glucose POC Glucose 335 H 261 H ALT Total Protein Albumin Ur Specific [place] Crossmatch 09/28/18 09/28/18 09/29/18 18:04 23:23 04:00 WBC 11.4 H RBC 2.62 L Hgb 8.7 L Hct 25.4 L MCV MCH 33 H MCHC RDW Plt Count Lymph % (Auto) 7.8 L [place] % (Auto) 12.4 H Lymph # 0.9 L [place] # 1.4 H Seg Neutrophils % 79.7 H Seg Neutrophils # 9.1 H POC ABG pCO2 POC ABG pO2 123 H Sodium Potassium Chloride Carbon Dioxide BUN Creatinine Glucose POC Glucose 209 H ALT Total Protein Albumin Ur Specific [place] Crossmatch 09/29/18 09/29/18 04:00 05:18 WBC RBC Hgb Hct MCV MCH MCHC RDW Plt Count Lymph % (Auto) [place] % (Auto) Lymph # [place] # Seg Neutrophils % Seg Neutrophils # POC ABG pCO2 POC ABG pO2 Sodium Potassium Chloride 109.7 H Carbon Dioxide BUN Creatinine Glucose 176 H POC Glucose 210 H ALT 6 L Total Protein 5.5 L Albumin 2.7 L Ur Specific [place] Crossmatch Chest x-ray: image reviewed Allied health notes reviewed: nursing
[2018-09-29] MEDS: TYLENOL PO PRN (08:48)
[2018-09-29] MEDS: PREVACID SOLUTAB FEEDTUBE SCH ×2 (09:30→21:14)
[2018-09-29] MEDS: ZESTRIL PO SCH (09:30)
[2018-09-29] MEDS: TENORMIN PO SCH (09:31)
[2018-09-29] MEDS: LANTUS SUB-Q SCH (09:32)
[2018-09-29] MEDS ORDERED: LANTUS SUB-Q ONE (10:00)
[2018-09-29] MEDS: DUONEB *Not for PRN Use IH SCH ×3 (10:39→20:09)
[2018-09-29] MEDS ORDERED: NACL 0.9% 250ML 250 ML IV ONE (12:00)
[2018-09-29] MEDS ORDERED: NACL 0.9% 1000 ML 1,000 ML IV SCH (18:00)
--- NOTE | 2018-09-29 20:34 | History and Physical Report ---
History of Present Illness Date of examination: 09/29/18 Date of admission: 09/19/18 16:51 Chief complaint: Generalized weakness., GI bleed. History of present illness: Patient presented from the [place] with reasons, as above.She was noticed to have bright red blood per rectum, and some abominal pain. She had a scope couple of years ago, by DR SPENCER, revealing polyps, and hgb was about 11, now 9+ IT appears ,this is lower GI bleed.Gi has already been consulted, set for a scope tomorrow.Will hydrate, and if after scope, no significant findings, will d/c back to the [place]. Past History Past Medical History: other (CAD/DE, anemia, diabetes, hypertension, hyperlipidemia, diverticular bleeding,stroke, dementia ) Past Surgical History: Other (hysterectomy, bilateral knee surgery, PTCA, cscope/EGD) Social history: other ([facility] resident). denies: smoking, alcohol abuse Medications and Allergies Allergies Allergy/AdvReac Type Severity Reaction Status Date / Time aspirin Allergy Hives Verified 09/19/18 14:52 codeine Allergy Itching Verified 09/19/18 14:52 Home Medications Medication Instructions Recorded Confirmed Last Taken Type AtorvaSTATin [Lipitor] 20 mg PO QHS #30 tablet 04/18/18 09/19/18 05/13/18 22:00 Rx ISOSORBIDE MONOnitrate [Imdur ER] 60 mg PO QDAY #30 tablet 04/18/18 09/19/18 05/14/18 10:00 Rx Aspirin EC 81 mg PO QDAY #30 tablet. 05/17/18 09/19/18 Unknown Rx Atenolol [Tenormin] 50 mg PO QDAY tablet 05/17/18 09/19/18 Unknown Rx Acetaminophen [Tylenol] 650 mg PO Q4HR PRN 09/19/18 09/19/18 Unknown History Cetirizine HCl [Zyrtec 10mg tab] 10 mg PO QDAY PRN 09/19/18 09/19/18 Unknown History Donepezil [Aricept] 5 mg PO HS 09/19/18 09/19/18 Unknown History Insulin Aspart [Novolog] See Protocol SUB-Q BID 09/19/18 09/19/18 Unknown History Lisinopril [Zestril TAB] 40 mg PO QDAY 09/19/18 09/19/18 Unknown History Meloxicam [Mobic] 15 mg PO QDAY 09/19/18 09/19/18 Unknown History cloNIDine [Catapres] 0.1 mg PO Q12H 09/19/18 09/19/18 Unknown History traMADol [Ultram] 50 mg PO Q8HR PRN 09/19/18 09/19/18 Unknown History Active Meds: Active Medications Acetaminophen (Tylenol) 650 mg PO Q4H PRN PRN Reason: Pain, Mild (1-3) Last Admin: 09/29/18 08:48 Dose: 650 mg Documented by: Albuterol/Ipratropium (Duoneb *Not For Prn Use*) 1 ampul IH TIDRT [facility] Last Admin: 09/29/18 20:09 Dose: 1 ampul Documented by: Lipase/Protease/Amylase (Elizabeth Mcdaniels 10,500 Unit) 1 each FEEDTUBE PRN PRN PRN Reason: For Clogged Feeding Tube Atenolol (Tenormin) 50 mg PO QDAY [facility] Last Admin: 09/29/18 09:31 Dose: 50 mg Documented by: Atorvastatin Calcium (Lipitor) 20 mg PO QHS [facility] Last Admin: 09/28/18 21:59 Dose: 20 mg Documented by: Dextrose (D50w (25gm) Syringe) 50 ml IV PRN PRN PRN Reason: Hypoglycemia Donepezil HCl (Aricept) 5 mg PO HS [facility] Last Admin: 09/28/18 21:59 Dose: 5 mg Documented by: Hydralazine HCl (Apresoline) 20 mg IV Q4H PRN PRN Reason: Blood Pressure Last Admin: 09/28/18 13:15 Dose: 20 mg Documented by: Hydrophilic Ointment (Vaseline Lip Therapy) 1 applic TP Q2H PRN PRN Reason: Dry Lips Sodium Chloride (Nacl 0.9% 1000 Ml) 1,000 mls @ 75 mls/hr IV DIRECT [facility] Last Admin: 09/29/18 18:21 Dose: 75 mls/hr Documented by: Insulin Glargine (Lantus) 10 units SUB-Q DAILY [facility] Insulin Human Regular (Humulin R) 0 units SUB-Q Q6HR [facility]; Protocol Last Admin: 09/29/18 18:20 Dose: 8 units Documented by: Isosorbide Dinitrate (Isordil Titradose) 20 mg PO Q8HR [facility] Last Admin: 09/29/18 15:27 Dose: Not Given Documented by: Lansoprazole (Prevacid Solutab) 30 mg FEEDTUBE BID [facility] Last Admin: 09/29/18 09:30 Dose: 30 mg Documented by: Lisinopril (Zestril) 40 mg PO QDAY [facility] Last Admin: 09/29/18 09:30 Dose: 40 mg Documented by: Loratadine (Claritin) 10 mg PO DAILY PRN PRN Reason: Allergy Symptoms Last Admin: 09/21/18 17:48 Dose: 10 mg Documented by: Multi-Ingred Cream/Lotion/Oil/Oint (Artificial Tears Ophth Oint) 1 applic OU Q4H PRN PRN Reason: Dry Eye(s) Simple Syrup (Simple Syrup) 15 ml FEEDTUBE PRN PRN PRN Reason: Hypoglycemia Simple Syrup (Simple Syrup) 30 ml FEEDTUBE PRN PRN PRN Reason: Hypoglycemia Sodium Bicarbonate (Sodium Bicarbonate) 325 mg FEEDTUBE PRN PRN PRN Reason: For Clogged Feeding Tube Tramadol HCl (Ultram) 50 mg PO Q8H PRN PRN Reason: Pain, Moderate (4-6) Exam - Constitutional Vitals: Temp Pulse Resp BP Pulse Ox 97.6 F 81 22 182/66 100 09/29/18 19:49 09/29/18 20:25 09/29/18 20:25 09/29/18 20:00 09/29/18 20:00 Results - Labs CBC & Chem 7: 09/29/18 04:00 09/29/18 04:00 Labs: Abnormal lab results 09/28/18 09/29/18 09/29/18 Range/Units 23:23 04:00 04:00 WBC 11.4 H (4.5-11.0) K/mm3 RBC 2.62 L (3.65-5.03) M/mm3 Hgb 8.7 L (10.1-14.3) gm/dl Hct 25.4 L (30.3-42.9) % MCH 33 H (28-32) pg Lymph % (Auto) 7.8 L (13.4-35.0) % [place] % (Auto) 12.4 H (0.0-7.3) % Lymph # 0.9 L (1.2-5.4) K/mm3 [place] # 1.4 H (0.0-0.8) K/mm3 Seg Neutrophils % 79.7 H (40.0-70.0) % Seg Neutrophils # 9.1 H (1.8-7.7) K/mm3 Chloride 109.7 H (98-107) mmol/L Glucose 176 H (65-100) mg/dL POC Glucose 209 H (70-105) ALT 6 L (7-56) units/L Total Protein 5.5 L (6.3-8.2) g/dL Albumin 2.7 L (3.9-5) g/dL 09/29/18 09/29/18 09/29/18 Range/Units 05:18 11:49 18:14 WBC (4.5-11.0) K/mm3 RBC (3.65-5.03) M/mm3 Hgb (10.1-14.3) gm/dl Hct (30.3-42.9) % MCH (28-32) pg Lymph % (Auto) (13.4-35.0) % [place] % (Auto) (0.0-7.3) % Lymph # (1.2-5.4) K/mm3 [place] # (0.0-0.8) K/mm3 Seg Neutrophils % (40.0-70.0) % Seg Neutrophils # (1.8-7.7) K/mm3 Chloride (98-107) mmol/L Glucose (65-100) mg/dL POC Glucose 210 H 255 H 410 H (70-105) ALT (7-56) units/L Total Protein (6.3-8.2) g/dL Albumin (3.9-5) g/dL Assessment and Plan - Patient Problems (1) LGI bleed Current Visit: Yes (2) Dementia Current Visit: Yes Status: Chronic Qualifiers: Alzheimer's disease onset: unspecified onset Dementia behavioral disturbance: without behavioral disturbance (3) Abdominal pain Current Visit: Yes Status: Acute (4) Anemia Current Visit: Yes Status: Acute (5) CVA (cerebral vascular accident) Current Visit: Yes Status: Acute Qualifiers: Precerebral and cerebral artery: anterior cerebral artery
--- NOTE | 2018-09-29 20:40 | Progress Note ---
Assessment and Plan - Patient Problems (1) LGI bleed Current Visit: Yes Plan to address problem: Follow GI , monitor labs. notes reviewed from GI. this is severe diverticular dz., not amendable to surgery. See notes above. Had some evidence of loss. same as above. (2) Dementia Current Visit: Yes Status: Chronic Qualifiers: Alzheimer's disease onset: unspecified onset Dementia behavioral disturbance: without behavioral disturbance Plan to address problem: supportive care. (3) Abdominal pain Current Visit: Yes Status: Acute Plan to address problem: Await scope. resolved. (4) Anemia Current Visit: Yes Status: Acute Plan to address problem: Monitor labs PRN. Transfusion, as necessary. same as above. Stable, post bld transfusion. 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 Awaiting neurology eval. Spoken to neurology. Subjective Date of service: 09/29/18 Principal diagnosis: Ac hypoxemic resp failure; Acute CVA; Ac GI bleed; Ac encephalopathy; DM II Interval history: Patient seen/examined, resting in bed, labs/ notes/consults reviewed. Patient scheduled for a scope tomorrow.I have given some transfusion, and will do H/h q6hrs. Patient seen/examined, resting in bed, labs/ operative notes reviewed.Will restart on IVF, and restart diet tomorrow. Patient seen/examined, resting in bed, notes/labs reviewed. i had spoken to her daughter yesterday, with full update. She is not keen to any aggressive measures, ophelia surgery. She is contemplating AND/vs hospice.She was suppose to think about it, and let us know.Will continue with supportive care for now. Patient seen/examined, resting in bed, labs reviewed. No active bleeding. GI/Surgery notes reviewed also. Patient seen/examined, resting in bed, notes/labs reviewed.No report of any active bleeding at this time. If this remains this way, will discharge back to the DC 2days ,or so. patient seen/examined, resting in bed, Had a code blue called earlier, and transfered to the unit, and intubated. Ct with contrast showed sub acute CELIO distribution stroke, and acute non hemorrhagic CVA. will consult neurology distribution analyst.Hgb dropped by less than a gram, from yesterday, obviously still bleeding. Once feasible, will do red cell tagged scan., and possibly IR intervention, with Embolization of the offending vessel, depending on how far the family wants to go.For now, will continue with replacement blood transfusion. Patient seen/examined, resting in bed, labs reviewed, and stable, post transfusion of 2units PRBC. Awaiting neurology eval/REC. patient seen/examined, resting in bed, still on the vent, but awoken easily.I have reviewed the Neurologist notes. patient s record reviewed, I have spoken to neurology today, about plan of care. Patient seen/examined, resting in bed, labs/records/notes reviewed.No new issues at this time. once stable, clinically, and ok with all involved, will d/c back to the DC. Objective - Constitutional Vitals: Vital Signs - 12hr 09/29/18 09/29/18 09/29/18 09:00 09:30 09:31 Temperature Pulse Rate 92 H 88 87 Pulse Rate [ Anterior Bilateral] Pulse Rate [ Bilateral] Pulse Rate [ From Monitor] Respiratory 31 H Rate Respiratory Rate [Anterior Bilateral] Respiratory Rate [Bilateral ] Blood Pressure 153/63 128/55 128/55 O2 Sat by Pulse 100 Oximetry 09/29/18 09/29/18 09/29/18 10:01 10:40 11:00 Temperature Pulse Rate 92 H 78 Pulse Rate [ 86 Anterior Bilateral] Pulse Rate [ 89 Bilateral] Pulse Rate [ From Monitor] Respiratory 35 H 29 H Rate Respiratory 26 H Rate [Anterior Bilateral] Respiratory 24 Rate [Bilateral ] Blood Pressure 106/61 88/41 O2 Sat by Pulse 100 99 Oximetry 09/29/18 09/29/18 09/29/18 12:00 12:01 12:48 Temperature 99.9 F H Pulse Rate 79 79 Pulse Rate [ Anterior Bilateral] Pulse Rate [ Bilateral] Pulse Rate [ 79 From Monitor] Respiratory 25 H 25 H 25 H Rate Respiratory Rate [Anterior Bilateral] Respiratory Rate [Bilateral ] Blood Pressure 102/51 102/51 O2 Sat by Pulse 99 100 100 Oximetry 09/29/18 09/29/18 09/29/18 13:00 13:28 14:00 Temperature Pulse Rate 72 79 Pulse Rate [ 78 Anterior Bilateral] Pulse Rate [ 78 Bilateral] Pulse Rate [ From Monitor] Respiratory 23 24 Rate Respiratory 28 H Rate [Anterior Bilateral] Respiratory 26 H Rate [Bilateral ] Blood Pressure 111/39 130/52 O2 Sat by Pulse 100 100 Oximetry 09/29/18 09/29/18 09/29/18 15:00 15:27 16:00 Temperature 99.2 F Pulse Rate 76 78 78 Pulse Rate [ Anterior Bilateral] Pulse Rate [ Bilateral] Pulse Rate [ 78 From Monitor] Respiratory 22 27 H Rate Respiratory Rate [Anterior Bilateral] Respiratory Rate [Bilateral ] Blood Pressure 127/45 130/52 134/48 O2 Sat by Pulse 100 96 Oximetry 09/29/18 09/29/18 09/29/18 17:00 18:00 19:49 Temperature 97.6 F Pulse Rate 82 77 Pulse Rate [ Anterior Bilateral] Pulse Rate [ Bilateral] Pulse Rate [ From Monitor] Respiratory 21 25 H Rate Respiratory Rate [Anterior Bilateral] Respiratory Rate [Bilateral ] Blood Pressure 134/48 138/48 O2 Sat by Pulse 100 100 Oximetry 09/29/18 09/29/18 20:00 20:25 Temperature Pulse Rate 80 Pulse Rate [ 80 81 Anterior Bilateral] Pulse Rate [ Bilateral] Pulse Rate [ From Monitor] Respiratory 24 Rate Respiratory 24 22 Rate [Anterior Bilateral] Respiratory Rate [Bilateral ] Blood Pressure 182/66 O2 Sat by Pulse 100 Oximetry General appearance: Present: no acute distress - EENT Eyes: PERRL, EOM intact ENT: hearing intact, clear oral mucosa Ears: bilateral: normal - Neck Neck: supple, normal ROM - Respiratory Respiratory: bilateral: diminished - Breasts Breasts: deferred - Cardiovascular Rhythm: regular Heart Sounds: Present: S1 & S2. Absent: gallop, rub Extremities: pulses intact, No edema, normal color, Full ROM - Gastrointestinal General gastrointestinal: Present: soft, non-tender, non-distended, normal bowel sounds Rectal Exam: deferred - Genitourinary Female genitourinary: deferred - Integumentary Integumentary: clear, warm, dry - Musculoskeletal Musculoskeletal: 1, strength equal bilaterally - Neurologic Neurologic: moves all extremities - Labs CBC & Chem 7: 09/29/18 04:00 09/29/18 04:00 Labs: Abnormal lab results 09/28/18 09/29/18 09/29/18 Range/Units 23:23 04:00 04:00 WBC 11.4 H (4.5-11.0) K/mm3 RBC 2.62 L (3.65-5.03) M/mm3 Hgb 8.7 L (10.1-14.3) gm/dl Hct 25.4 L (30.3-42.9) % MCH 33 H (28-32) pg Lymph % (Auto) 7.8 L (13.4-35.0) % Waldo % (Auto) 12.4 H (0.0-7.3) % Lymph # 0.9 L (1.2-5.4) K/mm3 Waldo # 1.4 H (0.0-0.8) K/mm3 Seg Neutrophils % 79.7 H (40.0-70.0) % Seg Neutrophils # 9.1 H (1.8-7.7) K/mm3 Chloride 109.7 H (98-107) mmol/L Glucose 176 H (65-100) mg/dL POC Glucose 209 H (70-105) ALT 6 L (7-56) units/L Total Protein 5.5 L (6.3-8.2) g/dL Albumin 2.7 L (3.9-5) g/dL 09/29/18 09/29/18 09/29/18 Range/Units 05:18 11:49 18:14 WBC (4.5-11.0) K/mm3 RBC (3.65-5.03) M/mm3 Hgb (10.1-14.3) gm/dl Hct (30.3-42.9) % MCH (28-32) pg Lymph % (Auto) (13.4-35.0) % [place]do % (Auto) (0.0-7.3) % Lymph # (1.2-5.4) K/mm3 [place]do # (0.0-0.8) K/mm3 Seg Neutrophils % (40.0-70.0) % Seg Neutrophils # (1.8-7.7) K/mm3 Chloride (98-107) mmol/L Glucose (65-100) mg/dL POC Glucose 210 H 255 H 410 H (70-105) ALT (7-56) units/L Total Protein (6.3-8.2) g/dL Albumin (3.9-5) g/dL
[2018-09-29] MEDS: ARICEPT PO SCH (21:15)
[2018-09-29] MEDS: APRESOLINE IV PRN (23:04)
[2018-09-30] MEDS: HumuLIN R SUB-Q SCH ×4 (00:06→18:25)
[2018-09-30] MEDS: ISORDIL TITRADOSE PO SCH ×3 (06:44→21:44)
[2018-09-30] MEDS: APRESOLINE IV PRN (06:45)
[2018-09-30 06:52] LABS: Alanine Aminotransferase 8 units/L (7-56); Albumin 2.5 g/dL (3.9-5); BUN/Creatinine Ratio 38; Blood Urea Nitrogen 30 mg/dL (7-17); Calcium 8.6 mg/dL (8.4-10.2); Hemolysis Index 48
[2018-09-30] MEDS: DUONEB *Not for PRN Use IH SCH ×3 (07:56→19:12)
[2018-09-30 08:15] LABS: Hematocrit 27.1 % (30.3-42.9); Hemoglobin 8.9 gm/dl (10.1-14.3); Mean Corpuscular HGB Conc 33 % (30-34); Mean Corpuscular Volume 100 fl (79-97); Platelet Count 203 K/mm3 (140-440); Red Blood Count 2.72 M/mm3 (3.65-5.03); Red Cell Distribution Width 15.3 % (13.2-15.2)
[2018-09-30] MEDS ORDERED: LANTUS SUB-Q ONE (09:00)
[2018-09-30 09:23] LABS: Basophils % (Manual) 0 % (0.0-1.8); Eosinophils % (Manual) 0 % (0.0-4.3); Total Cells Counted 100
[2018-09-30 09:24] LABS: Anisocytosis Few; Platelet Estimate Consistent w Auto
[2018-09-30] MEDS: ZESTRIL PO SCH (09:42)
[2018-09-30] MEDS: TENORMIN PO SCH (09:43)
[2018-09-30] MEDS: PREVACID SOLUTAB FEEDTUBE SCH ×2 (09:43→21:44)
[2018-09-30] MEDS ORDERED: LANTUS SUB-Q SCH (10:00)
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
--- NOTE | 2018-09-30 15:46 | Progress Note ---
Assessment and Plan - Patient Problems (1) LGI bleed Current Visit: Yes Plan to address problem: Follow GI , monitor labs. notes reviewed from GI. this is severe diverticular dz., not amendable to surgery. See notes above. Had some evidence of loss. same as above. (2) Dementia Current Visit: Yes Status: Chronic Qualifiers: Alzheimer's disease onset: unspecified onset Dementia behavioral disturbance: without behavioral disturbance Plan to address problem: supportive care. (3) Abdominal pain Current Visit: Yes Status: Acute Plan to address problem: Await scope. resolved. (4) Anemia Current Visit: Yes Status: Acute Plan to address problem: Monitor labs PRN. Transfusion, as necessary. same as above. Stable, post bld transfusion. 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 Awaiting neurology eval. Spoken to neurology. Subjective Date of service: 09/30/18 Principal diagnosis: Ac hypoxemic resp failure; Acute CVA; Ac GI bleed; Ac encephalopathy; DM II Interval history: Patient seen/examined, resting in bed, labs/ notes/consults reviewed. Patient scheduled for a scope tomorrow.I have given some transfusion, and will do H/h q6hrs. Patient seen/examined, resting in bed, labs/ operative notes reviewed.Will restart on IVF, and restart diet tomorrow. Patient seen/examined, resting in bed, notes/labs reviewed. i had spoken to her daughter yesterday, with full update. She is not keen to any aggressive measures, ophelia surgery. She is contemplating AND/vs hospice.She was suppose to think about it, and let us know.Will continue with supportive care for now. Patient seen/examined, resting in bed, labs reviewed. No active bleeding. GI/Surgery notes reviewed also. Patient seen/examined, resting in bed, notes/labs reviewed.No report of any active bleeding at this time. If this remains this way, will discharge back to the [place] 2days ,or so. patient seen/examined, resting in bed, Had a code blue called earlier, and transfered to the unit, and intubated. Ct with contrast showed sub acute CELIO distribution stroke, and acute non hemorrhagic CVA. will consult neurology medical scientific liaison.Hgb dropped by less than a gram, from yesterday, obviously still bleeding. Once feasible, will do red cell tagged scan., and possibly IR intervention, with Embolization of the offending vessel, depending on how far the family wants to go.For now, will continue with replacement blood transfusion. Patient seen/examined, resting in bed, labs reviewed, and stable, post transfusion of 2units PRBC. Awaiting neurology eval/REC. patient seen/examined, resting in bed, still on the vent, but awoken easily.I have reviewed the Neurologist notes. patient s record reviewed, I have spoken to neurology today, about plan of care. Patient seen/examined, resting in bed, labs/records/notes reviewed.No new issues at this time. once stable, clinically, and ok with all involved, will d/c back to the NH. Patient seen/examined, resting in bed, line problems, as per nurse, mid line to be placed.labs reviewed. Objective - Constitutional Vitals: Vital Signs - 12hr 09/30/18 09/30/18 09/30/18 03:46 04:00 05:00 Temperature 99.4 F Pulse Rate 83 82 Pulse Rate [ Anterior Bilateral] Pulse Rate [ 83 From Monitor] Respiratory 23 22 Rate Respiratory Rate [Abdomen] Respiratory Rate [Anterior Bilateral] Respiratory Rate [Left Knee ] Blood Pressure 155/54 144/50 O2 Sat by Pulse 100 100 Oximetry 09/30/18 09/30/18 09/30/18 05:05 06:00 06:44 Temperature Pulse Rate 84 88 82 Pulse Rate [ Anterior Bilateral] Pulse Rate [ From Monitor] Respiratory 26 H 21 Rate Respiratory Rate [Abdomen] Respiratory Rate [Anterior Bilateral] Respiratory Rate [Left Knee ] Blood Pressure 147/50 144/50 180/58 O2 Sat by Pulse 100 100 Oximetry 09/30/18 09/30/18 09/30/18 06:45 07:00 07:50 Temperature Pulse Rate 80 84 Pulse Rate [ Anterior Bilateral] Pulse Rate [ From Monitor] Respiratory 19 21 Rate Respiratory Rate [Abdomen] Respiratory Rate [Anterior Bilateral] Respiratory Rate [Left Knee ] Blood Pressure 180/58 175/54 180/47 O2 Sat by Pulse 100 100 Oximetry 09/30/18 09/30/18 09/30/18 07:57 08:00 08:16 Temperature 98.5 F 98.5 F Pulse Rate 83 Pulse Rate [ 92 H Anterior Bilateral] Pulse Rate [ 88 From Monitor] Respiratory 23 Rate Respiratory 20 Rate [Abdomen] Respiratory 24 Rate [Anterior Bilateral] Respiratory 20 Rate [Left Knee ] Blood Pressure 175/54 O2 Sat by Pulse 98 Oximetry 09/30/18 09/30/18 09/30/18 09:00 09:42 09:43 Temperature Pulse Rate 87 83 83 Pulse Rate [ Anterior Bilateral] Pulse Rate [ From Monitor] Respiratory 24 Rate Respiratory Rate [Abdomen] Respiratory Rate [Anterior Bilateral] Respiratory Rate [Left Knee ] Blood Pressure 154/53 137/51 137/51 O2 Sat by Pulse 98 Oximetry 09/30/18 09/30/18 09/30/18 10:00 10:30 11:00 Temperature Pulse Rate 79 80 72 Pulse Rate [ Anterior Bilateral] Pulse Rate [ From Monitor] Respiratory 20 20 21 Rate Respiratory Rate [Abdomen] Respiratory Rate [Anterior Bilateral] Respiratory Rate [Left Knee ] Blood Pressure 145/60 145/60 138/49 O2 Sat by Pulse 99 97 97 Oximetry 09/30/18 09/30/18 09/30/18 11:30 11:57 12:00 Temperature 99.2 F 99.2 F Pulse Rate 68 72 Pulse Rate [ Anterior Bilateral] Pulse Rate [ 76 From Monitor] Respiratory 19 20 Rate Respiratory Rate [Abdomen] Respiratory Rate [Anterior Bilateral] Respiratory Rate [Left Knee ] Blood Pressure 121/42 120/40 O2 Sat by Pulse 100 Oximetry 09/30/18 09/30/18 09/30/18 12:30 13:00 13:30 Temperature Pulse Rate 69 74 72 Pulse Rate [ Anterior Bilateral] Pulse Rate [ From Monitor] Respiratory 21 18 22 Rate Respiratory Rate [Abdomen] Respiratory Rate [Anterior Bilateral] Respiratory Rate [Left Knee ] Blood Pressure 120/40 109/47 106/46 O2 Sat by Pulse 100 100 100 Oximetry 09/30/18 09/30/18 09/30/18 14:00 14:28 14:30 Temperature Pulse Rate 75 79 Pulse Rate [ 78 Anterior Bilateral] Pulse Rate [ From Monitor] Respiratory 24 21 Rate Respiratory Rate [Abdomen] Respiratory 23 Rate [Anterior Bilateral] Respiratory Rate [Left Knee ] Blood Pressure 109/47 130/91 O2 Sat by Pulse Oximetry 09/30/18 09/30/18 15:00 15:15 Temperature Pulse Rate 77 72 Pulse Rate [ Anterior Bilateral] Pulse Rate [ From Monitor] Respiratory 24 Rate Respiratory Rate [Abdomen] Respiratory Rate [Anterior Bilateral] Respiratory Rate [Left Knee ] Blood Pressure 130/91 109/47 O2 Sat by Pulse Oximetry General appearance: Present: mild distress - EENT Eyes: PERRL, EOM intact ENT: hearing intact, clear oral mucosa Ears: bilateral: normal - Neck Neck: supple, normal ROM - Respiratory Respiratory effort: normal Respiratory: bilateral: CTA - Breasts Breasts: deferred - Cardiovascular Rhythm: regular Heart Sounds: Present: S1 & S2. Absent: gallop, rub Extremities: pulses intact, No edema, normal color, Full ROM - Gastrointestinal General gastrointestinal: Present: soft, non-tender, non-distended, normal bowel sounds Rectal Exam: deferred - Genitourinary Female genitourinary: deferred - Integumentary Integumentary: clear, warm, dry - Musculoskeletal Musculoskeletal: 1, strength equal bilaterally - Neurologic Neurologic: moves all extremities - Labs CBC & Chem 7: 09/30/18 06:41 09/30/18 05:00 Labs: Abnormal lab results 09/29/18 09/29/18 09/30/18 Range/Units 18:14 23:38 05:00 RBC (3.65-5.03) M/mm3 Hgb (10.1-14.3) gm/dl Hct (30.3-42.9) % MCV (79-97) fl MCH (28-32) pg RDW (13.2-15.2) % Seg Neuts % (Manual) (40.0-70.0) % Lymphocytes % (Manual) (13.4-35.0) % Lymphocytes # (Manual) (1.2-5.4) K/mm3 Carbon Dioxide 20 L (22-30) mmol/L BUN 30 H (7-17) mg/dL Glucose 307 H (65-100) mg/dL POC Glucose 410 H 280 H (70-105) Total Protein 5.7 L (6.3-8.2) g/dL Albumin 2.5 L (3.9-5) g/dL 09/30/18 09/30/18 09/30/18 Range/Units 05:36 06:41 11:34 RBC 2.72 L (3.65-5.03) M/mm3 Hgb 8.9 L (10.1-14.3) gm/dl Hct 27.1 L (30.3-42.9) % MCV 100 H (79-97) fl MCH 33 H (28-32) pg RDW 15.3 H (13.2-15.2) % Seg Neuts % (Manual) 80.0 H (40.0-70.0) % Lymphocytes % (Manual) 13.0 L (13.4-35.0) % Lymphocytes # (Manual) 1.1 L (1.2-5.4) K/mm3 Carbon Dioxide (22-30) mmol/L BUN (7-17) mg/dL Glucose (65-100) mg/dL POC Glucose 302 H 318 H (70-105) Total Protein (6.3-8.2) g/dL Albumin (3.9-5) g/dL
[2018-09-30] MEDS: ARICEPT PO SCH (21:45)
[2018-10-01] MEDS: HumuLIN R SUB-Q SCH ×5 (00:09→23:30)
[2018-10-01] MEDS: APRESOLINE IV PRN ×2 (00:14→02:15)
[2018-10-01 03:49] LABS: Basophils % (Auto) 0.3 % (0.0-1.8); Eosinophils % (Auto) 0.1 % (0.0-4.3); Hematocrit 25.9 % (30.3-42.9); Hemoglobin 8.7 gm/dl (10.1-14.3); Lymphocytes # (Auto) 0.9 K/mm3 (1.2-5.4); Lymphocytes % (Auto) 10.2 % (13.4-35.0); Mean Corpuscular HGB Conc 34 % (30-34); Mean Corpuscular Volume 97 fl (79-97); Monocytes # (Auto) 1.2 K/mm3 (0.0-0.8); Platelet Count 229 K/mm3 (140-440); Red Blood Count 2.66 M/mm3 (3.65-5.03); Red Cell Distribution Width 15.1 % (13.2-15.2)
[2018-10-01 04:16] LABS: Alanine Aminotransferase 10 units/L (7-56); Albumin 2.4 g/dL (3.9-5); BUN/Creatinine Ratio 44; Blood Urea Nitrogen 31 mg/dL (7-17); Calcium 8.4 mg/dL (8.4-10.2); Hemolysis Index 5
[2018-10-01] MEDS: ISORDIL TITRADOSE PO SCH ×3 (06:11→22:41)
[2018-10-01] MEDS ORDERED: LASIX IV ONE (06:48)
[2018-10-01] MEDS ORDERED: K-DUR PO ONE (06:49)
--- NOTE | 2018-10-01 06:57 | Progress Note ---
Assessment and Plan Acute hypoxemic respiratory failure . Acute gastrointestinal bleed. Acute encephalopathy, metabolic. History of coronary artery disease. History of gastroesophageal reflux disease. History of diabetes. Hypertension. History of a prior cerebrovascular accident. Arthritis. Dementia - continue bronchodilators with pulmonary hygiene per RT -Nocturnal BIPAP and prn - continue enteral nutrition as tolerated - continue supplemental oxygen as needed to keep O2 sat's > 90% - continue lung protective strategies - CXR and ABG today -Stop IVFs - continue accuchecks with glycemic control per SSI for target blood glucose <180mg/dL - Prevention of delirium, maintenance of sleep-wake cycle - neurolology evaluation ongoing - VTE prophylaxis - Surgery consult for PEG tube placement if no improvement in mental status by Wednesday -PT/OT to evaluate and treat -Mobility for pressure ulcer prevention CONDITION: CRITICAL PROGNOSIS: GUARDED CODE STATUS: FULL CODE The high probability of a clinically significant, sudden or life-threatening deterioration of the [respiratory and neurologic] system(s) required my full and direct attention, intervention and personal management. The aggregate critical care time was [35] minutes without overlap. Time includes spent on; [x] Data Review and interpretation [x] Patient assessment and monitoring of vital signs [x] Documentation [x] Medication orders and management Subjective Date of service: 10/01/18 Principal diagnosis: Ac hypoxemic resp failure; Acute CVA; Ac GI bleed; Ac encephalopathy; DM II Interval history: Patient is seen today for: Acute hypoxemic respiratory failure; Acute CVA; Acute gastrointestinal bleed; Acute encephalopathy; CAD; GERD; DM II; HTN; Arthritis; Dementia. Seen and examined at bedside; 24hour events reviewed; nursing and respiratory care staff consulted; no adverse overnight events reported to me; remains on NIPPV ; following simple commands; No N/V/F/C; CT brain revealed acute on subacute CVA ; no seizures; no gross G.I. re-bleeding: no fevers, no vomiting, tolerating tube feeding. Vitals, labs,medications, chart reviewed. Objective Vital Signs - 12hr 09/30/18 09/30/18 09/30/18 19:00 19:51 20:00 Temperature 97.8 F Pulse Rate 83 82 Respiratory 24 25 H Rate Respiratory 20 Rate [Abdomen] Respiratory 20 Rate [Left Knee ] Blood Pressure 144/68 161/52 O2 Sat by Pulse 100 100 Oximetry 07/09/30/18 09/30/18 21:00 21:44 22:00 Temperature Pulse Rate 79 76 81 Respiratory 24 24 Rate Respiratory Rate [Abdomen] Respiratory Rate [Left Knee ] Blood Pressure 152/46 163/52 152/46 O2 Sat by Pulse 100 100 Oximetry 09/30/18 09/30/18 09/30/18 22:04 23:00 23:31 Temperature 99.7 F H Pulse Rate 82 77 Respiratory 26 H 22 Rate Respiratory Rate [Abdomen] Respiratory Rate [Left Knee ] Blood Pressure 134/69 127/52 O2 Sat by Pulse 100 100 Oximetry 10/01/18 10/01/18 10/01/18 00:00 00:14 00:22 Temperature Pulse Rate 76 77 77 Respiratory 23 21 Rate Respiratory Rate [Abdomen] Respiratory Rate [Left Knee ] Blood Pressure 169/58 182/50 182/50 O2 Sat by Pulse 100 100 Oximetry 10/01/18 10/01/18 10/01/18 01:00 02:01 02:15 Temperature Pulse Rate 76 81 109 H Respiratory 21 25 H Rate Respiratory Rate [Abdomen] Respiratory Rate [Left Knee ] Blood Pressure 136/37 183/47 215/56 O2 Sat by Pulse 100 100 Oximetry 10/01/18 10/01/18 10/01/18 03:00 03:17 04:00 Temperature 99.6 F Pulse Rate 80 77 Respiratory 22 19 Rate Respiratory Rate [Abdomen] Respiratory Rate [Left Knee ] Blood Pressure 146/48 117/43 O2 Sat by Pulse 100 100 Oximetry 10/01/18 10/01/18 10/01/18 05:00 06:00 06:11 Temperature Pulse Rate 71 74 77 Respiratory 17 16 Rate Respiratory Rate [Abdomen] Respiratory Rate [Left Knee ] Blood Pressure 98/38 107/43 107/43 O2 Sat by Pulse 100 100 Oximetry Constitutional: no acute distress, other (elderly looking AAF, normocephalic and atraumatic with mildly increased resp effort on BIPAP) Eyes: non-icteric ENT: oropharynx moist Neck: supple, no lymphadenopathy, no JVD Effort: mildly labored Ascultation: Bilateral: diminished breath sounds, wheezes Percussion: Bilateral: not dull Cardiovascular: regular rate and rhythm, other (S1,S2) Gastrointestinal: normoactive bowel sounds, soft, non-tender, non-distended Integumentary: normal Extremities: no cyanosis, no edema, pulses normal, no ischemia or petechiae Neurologic: pupils equal and round, other (Left hemiparesis, will squeeze with right hand intermittently) Psychiatric: mood appropriate, other (unable to assess) CBC and BMP: 10/01/18 03:16 10/01/18 03:16 ABG, PT/INR, D-dimer: ABG POC ABG pH 7.364 (7.35-7.45) 09/28/18 18:04 POC ABG pCO2 38.2 (35-45) 09/28/18 18:04 POC ABG pO2 123 (80-105) H 09/28/18 18:04 POC ABG HCO3 21.8 (22-26 mml/L) 09/28/18 18:04 POC ABG Total CO2 23 (23-27mmol/L) 09/28/18 18:04 POC ABG O2 Sat 99 09/28/18 18:04 PT/INR, D-dimer PT 13.4 Sec. (12.2-14.9) 09/19/18 16:34 INR 1.05 (0.87-1.13) 09/19/18 16:34 Abnormal lab findings: Abnormal Labs 09/19/18 09/19/18 09/19/18 15:11 15:11 16:01 WBC 3.7 L RBC 2.85 L Hgb 9.6 L Hct 28.0 L MCV 99 H MCH 34 H MCHC RDW 12.7 L Plt Count Lymph % (Auto) 41.9 H [place] % (Auto) 14.9 H Lymph # [place] # Seg Neutrophils % Seg Neuts % (Manual) Lymphocytes % (Manual) Seg Neutrophils # 1.5 L Lymphocytes # (Manual) POC ABG pCO2 POC ABG pO2 Sodium Potassium Chloride 107.9 H Carbon Dioxide BUN 23 H Creatinine Glucose 191 H POC Glucose ALT Total Protein Albumin Ur Specific [place] 1.031 H Crossmatch 09/19/18 09/19/18 09/20/18 21:01 21:10 00:22 WBC RBC 2.39 L Hgb 8.1 L Hct 23.6 L MCV 99 H MCH 34 H MCHC RDW 12.5 L Plt Count Lymph % (Auto) [place] % (Auto) 9.9 H Lymph # [place] # Seg Neutrophils % Seg Neuts % (Manual) Lymphocytes % (Manual) Seg Neutrophils # Lymphocytes # (Manual) POC ABG pCO2 POC ABG pO2 Sodium Potassium Chloride Carbon Dioxide BUN Creatinine Glucose POC Glucose 229 H ALT Total Protein Albumin Ur Specific [place] Crossmatch See Detail 09/20/18 09/20/18 09/20/18 06:11 06:15 08:17 WBC RBC 2.27 L Hgb 7.6 L Hct 22.4 L MCV 99 H MCH 34 H MCHC RDW 12.7 L Plt Count Lymph % (Auto) 35.1 H [place] % (Auto) 11.4 H Lymph # [place] # Seg Neutrophils % Seg Neuts % (Manual) Lymphocytes % (Manual) Seg Neutrophils # Lymphocytes # (Manual) POC ABG pCO2 POC ABG pO2 Sodium Potassium Chloride Carbon Dioxide BUN Creatinine Glucose POC Glucose 246 H 253 H ALT Total Protein Albumin Ur Specific [place] Crossmatch 09/20/18 09/20/18 09/20/18 11:52 17:17 21:10 WBC RBC Hgb Hct MCV MCH MCHC RDW Plt Count Lymph % (Auto) [place] % (Auto) Lymph # [place] # Seg Neutrophils % Seg Neuts % (Manual) Lymphocytes % (Manual) Seg Neutrophils # Lymphocytes # (Manual) POC ABG pCO2 POC ABG pO2 Sodium Potassium Chloride Carbon Dioxide BUN Creatinine Glucose POC Glucose 278 H 241 H 245 H ALT Total Protein Albumin Ur Specific [place] Crossmatch 09/21/18 09/21/18 09/21/18 05:15 07:43 16:35 WBC RBC 3.35 L Hgb Hct MCV MCH 33 H MCHC 35 H RDW Plt Count 134 L Lymph % (Auto) [place] % (Auto) 12.4 H Lymph # [place] # 1.0 H Seg Neutrophils % Seg Neuts % (Manual) Lymphocytes % (Manual) Seg Neutrophils # Lymphocytes # (Manual) POC ABG pCO2 POC ABG pO2 Sodium Potassium Chloride Carbon Dioxide BUN Creatinine Glucose POC Glucose 278 H 237 H ALT Total Protein Albumin Ur Specific [place] Crossmatch 09/21/18 09/21/18 09/22/18 19:20 19:42 01:05 WBC RBC 2.66 L 2.43 L Hgb 8.7 L 8.0 L Hct 25.9 L D 23.4 L MCV MCH 33 H 33 H MCHC RDW Plt Count 137 L 127 L Lymph % (Auto) 12.7 L [place] % (Auto) 11.0 H Lymph # [place] # 1.1 H Seg Neutrophils % 75.8 H Seg Neuts % (Manual) Lymphocytes % (Manual) Seg Neutrophils # Lymphocytes # (Manual) POC ABG pCO2 POC ABG pO2 Sodium Potassium Chloride Carbon Dioxide BUN Creatinine Glucose POC Glucose 264 H ALT Total Protein Albumin Ur Specific [place] Crossmatch 09/22/18 09/22/18 09/22/18 05:20 07:29 11:48 WBC RBC 2.43 L Hgb 8.0 L Hct 23.4 L MCV MCH 33 H MCHC RDW Plt Count 118 L Lymph % (Auto) [place] % (Auto) 14.0 H Lymph # [place] # 1.1 H Seg Neutrophils % Seg Neuts % (Manual) Lymphocytes % (Manual) Seg Neutrophils # Lymphocytes # (Manual) POC ABG pCO2 POC ABG pO2 Sodium Potassium Chloride Carbon Dioxide BUN Creatinine Glucose POC Glucose 335 H 300 H ALT Total Protein Albumin Ur Specific [place] Crossmatch 09/22/18 09/22/18 09/23/18 16:55 21:04 04:52 WBC 4.4 L RBC 2.40 L Hgb 8.0 L Hct 23.4 L MCV 98 H MCH 33 H MCHC RDW Plt Count 115 L Lymph % (Auto) [place] % (Auto) 12.2 H Lymph # [place] # Seg Neutrophils % Seg Neuts % (Manual) Lymphocytes % (Manual) Seg Neutrophils # Lymphocytes # (Manual) POC ABG pCO2 POC ABG pO2 Sodium Potassium Chloride Carbon Dioxide BUN Creatinine Glucose POC Glucose 340 H 285 H ALT Total Protein Albumin Ur Specific [place] Crossmatch 09/23/18 09/23/18 09/23/18 04:52 07:33 11:23 WBC RBC Hgb Hct MCV MCH MCHC RDW Plt Count Lymph % (Auto) [place] % (Auto) Lymph # [place] # Seg Neutrophils % Seg Neuts % (Manual) Lymphocytes % (Manual) Seg Neutrophils # Lymphocytes # (Manual) POC ABG pCO2 POC ABG pO2 Sodium Potassium Chloride 110.6 H Carbon Dioxide BUN 19 H Creatinine Glucose 220 H POC Glucose 216 H 307 H ALT Total Protein Albumin Ur Specific [place] Crossmatch 09/23/18 09/23/18 09/24/18 16:23 20:33 06:09 WBC RBC 2.47 L Hgb 8.0 L Hct 24.8 L MCV 100 H MCH 33 H MCHC RDW Plt Count Lymph % (Auto) [place] % (Auto) 11.1 H Lymph # [place] # Seg Neutrophils % Seg Neuts % (Manual) Lymphocytes % (Manual) Seg Neutrophils # Lymphocytes # (Manual) POC ABG pCO2 POC ABG pO2 Sodium Potassium Chloride Carbon Dioxide BUN Creatinine Glucose POC Glucose 361 H 261 H ALT Total Protein Albumin Ur Specific [place] Crossmatch 09/24/18 09/24/18 09/24/18 06:09 08:07 12:06 WBC RBC Hgb Hct MCV MCH MCHC RDW Plt Count Lymph % (Auto) [place] % (Auto) Lymph # [place] # Seg Neutrophils % Seg Neuts % (Manual) Lymphocytes % (Manual) Seg Neutrophils # Lymphocytes # (Manual) POC ABG pCO2 POC ABG pO2 Sodium Potassium Chloride 110.8 H Carbon Dioxide BUN 18 H Creatinine Glucose 135 H POC Glucose 130 H 154 H ALT Total Protein Albumin Ur Specific [place] Crossmatch 09/24/18 09/24/18 09/25/18 16:47 20:55 06:05 WBC RBC 2.14 L Hgb 7.0 L Hct 21.1 L MCV 98 H MCH 33 H MCHC RDW Plt Count Lymph % (Auto) [place] % (Auto) 10.3 H Lymph # [place] # Seg Neutrophils % Seg Neuts % (Manual) Lymphocytes % (Manual) Seg Neutrophils # Lymphocytes # (Manual) POC ABG pCO2 POC ABG pO2 Sodium Potassium Chloride Carbon Dioxide BUN Creatinine Glucose POC Glucose 190 H 233 H ALT Total Protein Albumin Ur Specific [place] Crossmatch 09/25/18 09/25/18 09/25/18 06:05 08:06 11:13 WBC RBC Hgb Hct MCV MCH MCHC RDW Plt Count Lymph % (Auto) [place] % (Auto) Lymph # [place] # Seg Neutrophils % Seg Neuts % (Manual) Lymphocytes % (Manual) Seg Neutrophils # Lymphocytes # (Manual) POC ABG pCO2 POC ABG pO2 Sodium 146 H Potassium Chloride 112.6 H Carbon Dioxide BUN 20 H Creatinine Glucose 243 H POC Glucose 248 H 274 H ALT Total Protein Albumin Ur Specific [place] Crossmatch 09/25/18 09/25/18 09/25/18 14:56 15:05 22:04 WBC RBC 2.31 L Hgb 7.6 L Hct 22.5 L MCV MCH 33 H MCHC RDW Plt Count Lymph % (Auto) [place] % (Auto) Lymph # [place] # Seg Neutrophils % Seg Neuts % (Manual) Lymphocytes % (Manual) Seg Neutrophils # Lymphocytes # (Manual) POC ABG pCO2 POC ABG pO2 Sodium Potassium Chloride Carbon Dioxide BUN Creatinine Glucose POC Glucose 333 H ALT Total Protein Albumin Ur Specific [place] Crossmatch See Detail 09/26/18 09/26/18 09/26/18 03:35 05:15 05:15 WBC 12.6 H RBC 3.21 L Hgb Hct MCV MCH MCHC RDW Plt Count Lymph % (Auto) 10.2 L [place] % (Auto) 11.7 H Lymph # [place] # 1.5 H Seg Neutrophils % 78.0 H Seg Neuts % (Manual) Lymphocytes % (Manual) Seg Neutrophils # 9.9 H Lymphocytes # (Manual) POC ABG pCO2 33.2 L POC ABG pO2 249 H Sodium Potassium Chloride 109.2 H Carbon Dioxide BUN 20 H Creatinine Glucose 234 H POC Glucose ALT Total Protein 5.7 L Albumin 3.2 L Ur Specific [place] Crossmatch 09/26/18 09/26/18 09/26/18 11:55 17:52 23:32 WBC RBC Hgb Hct MCV MCH MCHC RDW Plt Count Lymph % (Auto) [place] % (Auto) Lymph # [place] # Seg Neutrophils % Seg Neuts % (Manual) Lymphocytes % (Manual) Seg Neutrophils # Lymphocytes # (Manual) POC ABG pCO2 POC ABG pO2 Sodium Potassium Chloride Carbon Dioxide BUN Creatinine Glucose POC Glucose 288 H 292 H 266 H ALT Total Protein Albumin Ur Specific [place] Crossmatch 09/27/18 09/27/18 09/27/18 03:57 04:18 05:01 WBC RBC 3.03 L Hgb 10.0 L Hct 29.6 L MCV 98 H MCH 33 H MCHC RDW Plt Count 138 L Lymph % (Auto) 10.8 L [place] % (Auto) 14.6 H Lymph # 1.1 L [place] # 1.5 H Seg Neutrophils % 74.2 H Seg Neuts % (Manual) Lymphocytes % (Manual) Seg Neutrophils # Lymphocytes # (Manual) POC ABG pCO2 POC ABG pO2 Sodium Potassium 3.5 L Chloride 111.3 H Carbon Dioxide BUN Creatinine Glucose 220 H POC Glucose 250 H ALT 6 L Total Protein 5.4 L Albumin 2.9 L Ur Specific [place] Crossmatch 09/27/18 09/27/18 09/27/18 05:21 11:59 14:29 WBC RBC Hgb Hct MCV MCH MCHC RDW Plt Count Lymph % (Auto) [place] % (Auto) Lymph # [place] # Seg Neutrophils % Seg Neuts % (Manual) Lymphocytes % (Manual) Seg Neutrophils # Lymphocytes # (Manual) POC ABG pCO2 31.1 L POC ABG pO2 148 H 118 H Sodium Potassium Chloride Carbon Dioxide BUN Creatinine Glucose POC Glucose 240 H ALT Total Protein Albumin Ur Specific [place] Crossmatch 09/27/18 09/27/18 09/28/18 18:16 23:26 03:57 WBC 12.7 H RBC 3.05 L Hgb 10.0 L Hct 30.0 L MCV 98 H MCH 33 H MCHC RDW 15.5 H Plt Count Lymph % (Auto) 9.5 L [place] % (Auto) 12.3 H Lymph # [place] # 1.6 H Seg Neutrophils % 77.6 H Seg Neuts % (Manual) Lymphocytes % (Manual) Seg Neutrophils # 9.9 H Lymphocytes # (Manual) POC ABG pCO2 POC ABG pO2 Sodium Potassium Chloride Carbon Dioxide BUN Creatinine Glucose POC Glucose 266 H 242 H ALT Total Protein Albumin Ur Specific [place] Crossmatch 09/28/18 09/28/18 09/28/18 03:57 04:46 05:55 WBC RBC Hgb Hct MCV MCH MCHC RDW Plt Count Lymph % (Auto) [place] % (Auto) Lymph # [place] # Seg Neutrophils % Seg Neuts % (Manual) Lymphocytes % (Manual) Seg Neutrophils # Lymphocytes # (Manual) POC ABG pCO2 POC ABG pO2 136 H Sodium Potassium Chloride 109.9 H Carbon Dioxide 21 L BUN Creatinine 0.6 L Glucose 245 H POC Glucose 270 H ALT Total Protein 5.7 L Albumin 2.8 L Ur Specific [place] Crossmatch 09/28/18 09/28/18 09/28/18 11:51 15:11 17:46 WBC RBC Hgb Hct MCV MCH MCHC RDW Plt Count Lymph % (Auto) [place] % (Auto) Lymph # [place] # Seg Neutrophils % Seg Neuts % (Manual) Lymphocytes % (Manual) Seg Neutrophils # Lymphocytes # (Manual) POC ABG pCO2 32.6 L POC ABG pO2 116 H Sodium Potassium Chloride Carbon Dioxide BUN Creatinine Glucose POC Glucose 335 H 261 H ALT Total Protein Albumin Ur Specific [place] Crossmatch 09/28/18 09/28/18 09/29/18 18:04 23:23 04:00 WBC 11.4 H RBC 2.62 L Hgb 8.7 L Hct 25.4 L MCV MCH 33 H MCHC RDW Plt Count Lymph % (Auto) 7.8 L [place] % (Auto) 12.4 H Lymph # 0.9 L [place] # 1.4 H Seg Neutrophils % 79.7 H Seg Neuts % (Manual) Lymphocytes % (Manual) Seg Neutrophils # 9.1 H Lymphocytes # (Manual) POC ABG pCO2 POC ABG pO2 123 H Sodium Potassium Chloride Carbon Dioxide BUN Creatinine Glucose POC Glucose 209 H ALT Total Protein Albumin Ur Specific [place] Crossmatch 09/29/18 09/29/18 09/29/18 04:00 05:18 11:49 WBC RBC Hgb Hct MCV MCH MCHC RDW Plt Count Lymph % (Auto) [place] % (Auto) Lymph # [place] # Seg Neutrophils % Seg Neuts % (Manual) Lymphocytes % (Manual) Seg Neutrophils # Lymphocytes # (Manual) POC ABG pCO2 POC ABG pO2 Sodium Potassium Chloride 109.7 H Carbon Dioxide BUN Creatinine Glucose 176 H POC Glucose 210 H 255 H ALT 6 L Total Protein 5.5 L Albumin 2.7 L Ur Specific [place] Crossmatch 09/29/18 09/29/18 09/30/18 18:14 23:38 05:00 WBC RBC Hgb Hct MCV MCH MCHC RDW Plt Count Lymph % (Auto) [place] % (Auto) Lymph # [place] # Seg Neutrophils % Seg Neuts % (Manual) Lymphocytes % (Manual) Seg Neutrophils # Lymphocytes # (Manual) POC ABG pCO2 POC ABG pO2 Sodium Potassium Chloride Carbon Dioxide 20 L BUN 30 H Creatinine Glucose 307 H POC Glucose 410 H 280 H ALT Total Protein 5.7 L Albumin 2.5 L Ur Specific [place] Crossmatch 09/30/18 09/30/18 09/30/18 05:36 06:41 11:34 WBC RBC 2.72 L Hgb 8.9 L Hct 27.1 L MCV 100 H MCH 33 H MCHC RDW 15.3 H Plt Count Lymph % (Auto) [place] % (Auto) Lymph # [place] # Seg Neutrophils % Seg Neuts % (Manual) 80.0 H Lymphocytes % (Manual) 13.0 L Seg Neutrophils # Lymphocytes # (Manual) 1.1 L POC ABG pCO2 POC ABG pO2 Sodium Potassium Chloride Carbon Dioxide BUN Creatinine Glucose POC Glucose 302 H 318 H ALT Total Protein Albumin Ur Specific [place] Crossmatch 09/30/18 09/30/1819 17:50 23:53 03:16 WBC RBC 2.66 L Hgb 8.7 L Hct 25.9 L MCV MCH 33 H MCHC RDW Plt Count Lymph % (Auto) 10.2 L [place] % (Auto) 14.0 H Lymph # 0.9 L [place] # 1.2 H Seg Neutrophils % 75.4 H Seg Neuts % (Manual) Lymphocytes % (Manual) Seg Neutrophils # Lymphocytes # (Manual) POC ABG pCO2 POC ABG pO2 Sodium Potassium Chloride Carbon Dioxide BUN Creatinine Glucose POC Glucose 244 H 236 H ALT Total Protein Albumin Ur Specific [place] Crossmatch 10/01/18 10/01/18 03:16 05:19 WBC RBC Hgb Hct MCV MCH MCHC RDW Plt Count Lymph % (Auto) [place] % (Auto) Lymph # [place] # Seg Neutrophils % Seg Neuts % (Manual) Lymphocytes % (Manual) Seg Neutrophils # Lymphocytes # (Manual) POC ABG pCO2 POC ABG pO2 Sodium Potassium Chloride 111.4 H Carbon Dioxide BUN 31 H Creatinine Glucose 217 H POC Glucose 278 H ALT Total Protein 5.6 L Albumin 2.4 L Ur Specific [place] Crossmatch Chest x-ray: image reviewed Allied health notes reviewed: RT
[2018-10-01] MEDS: DUONEB *Not for PRN Use IH SCH ×3 (08:18→19:42)
--- NOTE | 2018-10-01 08:44 | XRay Report ---
CHEST 1 VIEW INDICATION / CLINICAL INFORMATION: alveolar edema, aspiration. COMPARISON: 09/29/2018 FINDINGS: SUPPORT DEVICES: Feeding tube remains with the tip in the region of the stomach fundus. HEART / MEDIASTINUM: No significant abnormality. LUNGS / PLEURA: There is only minimal basilar atelectasis with no infiltrate, edema or effusion. No p neumothorax. ADDITIONAL FINDINGS: No significant additional findings. IMPRESSION: 1. No substantial change. Signer Name: Rasheed De Paz MD Signed: 10/01/2018 8:39 AM Workstation Name: [id number]
[2018-10-01] MEDS ORDERED: POTASSIUM CHLORIDE FEEDTUBE NR (09:00)
[2018-10-01] MEDS: PREVACID SOLUTAB FEEDTUBE SCH ×2 (09:09→22:41)
[2018-10-01] MEDS: LANTUS SUB-Q SCH (09:10)
[2018-10-01] MEDS: TENORMIN PO SCH (09:10)
--- NOTE | 2018-10-01 11:31 | Progress Note ---
Subjective Date of service: 10/01/18 Principal diagnosis: Ac hypoxemic resp failure; Acute CVA; Ac GI bleed; Ac encephalopathy; DM II Interval history: went over labs and notes plan f/u CT shortly await tesying no evidence of additional strokes Objective - Vital Sign Vital Signs - 12hr 09/30/18 10/01/18 10/01/18 23:31 00:00 00:14 Temperature 99.7 F H Pulse Rate 76 77 Pulse Rate [ Anterior Bilateral] Pulse Rate [ From Monitor] Respiratory 23 Rate Respiratory Rate [Abdomen] Respiratory Rate [Anterior Bilateral] Respiratory Rate [Left Knee ] Blood Pressure 169/58 182/50 O2 Sat by Pulse 100 Oximetry 10/01/18 10/01/18 10/01/18 00:22 01:00 02:01 Temperature Pulse Rate 77 76 81 Pulse Rate [ Anterior Bilateral] Pulse Rate [ From Monitor] Respiratory 21 21 25 H Rate Respiratory Rate [Abdomen] Respiratory Rate [Anterior Bilateral] Respiratory Rate [Left Knee ] Blood Pressure 182/50 136/37 183/47 O2 Sat by Pulse 100 100 100 Oximetry 10/01/18 10/01/18 10/01/18 02:15 03:00 03:17 Temperature 99.6 F Pulse Rate 109 H 80 Pulse Rate [ Anterior Bilateral] Pulse Rate [ From Monitor] Respiratory 22 Rate Respiratory Rate [Abdomen] Respiratory Rate [Anterior Bilateral] Respiratory Rate [Left Knee ] Blood Pressure 215/56 146/48 O2 Sat by Pulse 100 Oximetry 10/01/18 10/01/18 10/01/18 04:00 05:00 06:00 Temperature Pulse Rate 77 71 74 Pulse Rate [ Anterior Bilateral] Pulse Rate [ From Monitor] Respiratory 19 17 16 Rate Respiratory Rate [Abdomen] Respiratory Rate [Anterior Bilateral] Respiratory Rate [Left Knee ] Blood Pressure 117/43 98/38 107/43 O2 Sat by Pulse 100 100 100 Oximetry 10/01/18 10/01/18 10/01/18 06:11 07:00 08:00 Temperature Pulse Rate 77 82 80 Pulse Rate [ Anterior Bilateral] Pulse Rate [ 79 From Monitor] Respiratory 19 20 Rate Respiratory 18 Rate [Abdomen] Respiratory Rate [Anterior Bilateral] Respiratory 18 Rate [Left Knee ] Blood Pressure 107/43 126/55 143/47 O2 Sat by Pulse 100 100 Oximetry 10/01/18 10/01/18 10/01/18 08:18 08:26 08:57 Temperature 98.6 F Pulse Rate Pulse Rate [ 89 Anterior Bilateral] Pulse Rate [ From Monitor] Respiratory Rate Respiratory Rate [Abdomen] Respiratory 19 Rate [Anterior Bilateral] Respiratory Rate [Left Knee ] Blood Pressure O2 Sat by Pulse 100 Oximetry 10/01/18 10/01/18 10/01/18 09:00 09:10 10:00 Temperature Pulse Rate 89 88 82 Pulse Rate [ Anterior Bilateral] Pulse Rate [ From Monitor] Respiratory 20 18 Rate Respiratory Rate [Abdomen] Respiratory Rate [Anterior Bilateral] Respiratory Rate [Left Knee ] Blood Pressure 151/49 151/49 142/65 O2 Sat by Pulse 100 100 Oximetry - Laboratory Findings CBC and BMP: 10/01/18 03:16 10/01/18 03:16 Abnormal Lab Findings: Abnormal Labs 09/19/18 09/19/18 09/19/18 15:11 15:11 16:01 WBC 3.7 L RBC 2.85 L Hgb 9.6 L Hct 28.0 L MCV 99 H MCH 34 H MCHC RDW 12.7 L Plt Count Lymph % (Auto) 41.9 H [place] % (Auto) 14.9 H Lymph # [place] # Seg Neutrophils % Seg Neuts % (Manual) Lymphocytes % (Manual) Seg Neutrophils # 1.5 L Lymphocytes # (Manual) POC ABG pCO2 POC ABG pO2 Sodium Potassium Chloride 107.9 H Carbon Dioxide BUN 23 H Creatinine Glucose 191 H POC Glucose ALT Total Protein Albumin Ur Specific [place] 1.031 H Crossmatch 09/19/18 09/19/18 09/20/18 21:01 21:10 00:22 WBC RBC 2.39 L Hgb 8.1 L Hct 23.6 L MCV 99 H MCH 34 H MCHC RDW 12.5 L Plt Count Lymph % (Auto) [place] % (Auto) 9.9 H Lymph # [place] # Seg Neutrophils % Seg Neuts % (Manual) Lymphocytes % (Manual) Seg Neutrophils # Lymphocytes # (Manual) POC ABG pCO2 POC ABG pO2 Sodium Potassium Chloride Carbon Dioxide BUN Creatinine Glucose POC Glucose 229 H ALT Total Protein Albumin Ur Specific [place] Crossmatch See Detail 09/20/18 09/20/18 09/20/18 06:11 06:15 08:17 WBC RBC 2.27 L Hgb 7.6 L Hct 22.4 L MCV 99 H MCH 34 H MCHC RDW 12.7 L Plt Count Lymph % (Auto) 35.1 H [place] % (Auto) 11.4 H Lymph # [place] # Seg Neutrophils % Seg Neuts % (Manual) Lymphocytes % (Manual) Seg Neutrophils # Lymphocytes # (Manual) POC ABG pCO2 POC ABG pO2 Sodium Potassium Chloride Carbon Dioxide BUN Creatinine Glucose POC Glucose 246 H 253 H ALT Total Protein Albumin Ur Specific [place] Crossmatch 09/20/18 09/20/18 09/20/18 11:52 17:17 21:10 WBC RBC Hgb Hct MCV MCH MCHC RDW Plt Count Lymph % (Auto) [place] % (Auto) Lymph # [place] # Seg Neutrophils % Seg Neuts % (Manual) Lymphocytes % (Manual) Seg Neutrophils # Lymphocytes # (Manual) POC ABG pCO2 POC ABG pO2 Sodium Potassium Chloride Carbon Dioxide BUN Creatinine Glucose POC Glucose 278 H 241 H 245 H ALT Total Protein Albumin Ur Specific [place] Crossmatch 09/21/18 09/21/18 09/21/18 05:15 07:43 16:35 WBC RBC 3.35 L Hgb Hct MCV MCH 33 H MCHC 35 H RDW Plt Count 134 L Lymph % (Auto) [place] % (Auto) 12.4 H Lymph # [place] # 1.0 H Seg Neutrophils % Seg Neuts % (Manual) Lymphocytes % (Manual) Seg Neutrophils # Lymphocytes # (Manual) POC ABG pCO2 POC ABG pO2 Sodium Potassium Chloride Carbon Dioxide BUN Creatinine Glucose POC Glucose 278 H 237 H ALT Total Protein Albumin Ur Specific [place] Crossmatch 09/21/18 09/21/18 09/22/18 19:20 19:42 01:05 WBC RBC 2.66 L 2.43 L Hgb 8.7 L 8.0 L Hct 25.9 L D 23.4 L MCV MCH 33 H 33 H MCHC RDW Plt Count 137 L 127 L Lymph % (Auto) 12.7 L [place] % (Auto) 11.0 H Lymph # [place] # 1.1 H Seg Neutrophils % 75.8 H Seg Neuts % (Manual) Lymphocytes % (Manual) Seg Neutrophils # Lymphocytes # (Manual) POC ABG pCO2 POC ABG pO2 Sodium Potassium Chloride Carbon Dioxide BUN Creatinine Glucose POC Glucose 264 H ALT Total Protein Albumin Ur Specific [place] Crossmatch 09/22/18 09/22/18 09/22/18 05:20 07:29 11:48 WBC RBC 2.43 L Hgb 8.0 L Hct 23.4 L MCV MCH 33 H MCHC RDW Plt Count 118 L Lymph % (Auto) [place] % (Auto) 14.0 H Lymph # [place] # 1.1 H Seg Neutrophils % Seg Neuts % (Manual) Lymphocytes % (Manual) Seg Neutrophils # Lymphocytes # (Manual) POC ABG pCO2 POC ABG pO2 Sodium Potassium Chloride Carbon Dioxide BUN Creatinine Glucose POC Glucose 335 H 300 H ALT Total Protein Albumin Ur Specific [place] Crossmatch 09/22/18 09/22/18 09/23/18 16:55 21:04 04:52 WBC 4.4 L RBC 2.40 L Hgb 8.0 L Hct 23.4 L MCV 98 H MCH 33 H MCHC RDW Plt Count 115 L Lymph % (Auto) [place] % (Auto) 12.2 H Lymph # [place] # Seg Neutrophils % Seg Neuts % (Manual) Lymphocytes % (Manual) Seg Neutrophils # Lymphocytes # (Manual) POC ABG pCO2 POC ABG pO2 Sodium Potassium Chloride Carbon Dioxide BUN Creatinine Glucose POC Glucose 340 H 285 H ALT Total Protein Albumin Ur Specific [place] Crossmatch 09/23/18 09/23/18 09/23/18 04:52 07:33 11:23 WBC RBC Hgb Hct MCV MCH MCHC RDW Plt Count Lymph % (Auto) [place] % (Auto) Lymph # [place] # Seg Neutrophils % Seg Neuts % (Manual) Lymphocytes % (Manual) Seg Neutrophils # Lymphocytes # (Manual) POC ABG pCO2 POC ABG pO2 Sodium Potassium Chloride 110.6 H Carbon Dioxide BUN 19 H Creatinine Glucose 220 H POC Glucose 216 H 307 H ALT Total Protein Albumin Ur Specific [place] Crossmatch 09/23/18 09/23/18 09/24/18 16:23 20:33 06:09 WBC RBC 2.47 L Hgb 8.0 L Hct 24.8 L MCV 100 H MCH 33 H MCHC RDW Plt Count Lymph % (Auto) [place] % (Auto) 11.1 H Lymph # [place] # Seg Neutrophils % Seg Neuts % (Manual) Lymphocytes % (Manual) Seg Neutrophils # Lymphocytes # (Manual) POC ABG pCO2 POC ABG pO2 Sodium Potassium Chloride Carbon Dioxide BUN Creatinine Glucose POC Glucose 361 H 261 H ALT Total Protein Albumin Ur Specific [place] Crossmatch 09/24/18 09/24/18 09/24/18 06:09 08:07 12:06 WBC RBC Hgb Hct MCV MCH MCHC RDW Plt Count Lymph % (Auto) [place] % (Auto) Lymph # [place] # Seg Neutrophils % Seg Neuts % (Manual) Lymphocytes % (Manual) Seg Neutrophils # Lymphocytes # (Manual) POC ABG pCO2 POC ABG pO2 Sodium Potassium Chloride 110.8 H Carbon Dioxide BUN 18 H Creatinine Glucose 135 H POC Glucose 130 H 154 H ALT Total Protein Albumin Ur Specific [place] Crossmatch 09/24/18 09/24/18 09/25/18 16:47 20:55 06:05 WBC RBC 2.14 L Hgb 7.0 L Hct 21.1 L MCV 98 H MCH 33 H MCHC RDW Plt Count Lymph % (Auto) [place] % (Auto) 10.3 H Lymph # [place] # Seg Neutrophils % Seg Neuts % (Manual) Lymphocytes % (Manual) Seg Neutrophils # Lymphocytes # (Manual) POC ABG pCO2 POC ABG pO2 Sodium Potassium Chloride Carbon Dioxide BUN Creatinine Glucose POC Glucose 190 H 233 H ALT Total Protein Albumin Ur Specific [place] Crossmatch 09/25/18 09/25/18 09/25/18 06:05 08:06 11:13 WBC RBC Hgb Hct MCV MCH MCHC RDW Plt Count Lymph % (Auto) [place] % (Auto) Lymph # [place] # Seg Neutrophils % Seg Neuts % (Manual) Lymphocytes % (Manual) Seg Neutrophils # Lymphocytes # (Manual) POC ABG pCO2 POC ABG pO2 Sodium 146 H Potassium Chloride 112.6 H Carbon Dioxide BUN 20 H Creatinine Glucose 243 H POC Glucose 248 H 274 H ALT Total Protein Albumin Ur Specific [place] Crossmatch 09/25/18 09/25/18 09/25/18 14:56 15:05 22:04 WBC RBC 2.31 L Hgb 7.6 L Hct 22.5 L MCV MCH 33 H MCHC RDW Plt Count Lymph % (Auto) [place] % (Auto) Lymph # [place] # Seg Neutrophils % Seg Neuts % (Manual) Lymphocytes % (Manual) Seg Neutrophils # Lymphocytes # (Manual) POC ABG pCO2 POC ABG pO2 Sodium Potassium Chloride Carbon Dioxide BUN Creatinine Glucose POC Glucose 333 H ALT Total Protein Albumin Ur Specific [place] Crossmatch See Detail 09/26/18 09/26/18 09/26/18 03:35 05:15 05:15 WBC 12.6 H RBC 3.21 L Hgb Hct MCV MCH MCHC RDW Plt Count Lymph % (Auto) 10.2 L [place] % (Auto) 11.7 H Lymph # [place] # 1.5 H Seg Neutrophils % 78.0 H Seg Neuts % (Manual) Lymphocytes % (Manual) Seg Neutrophils # 9.9 H Lymphocytes # (Manual) POC ABG pCO2 33.2 L POC ABG pO2 249 H Sodium Potassium Chloride 109.2 H Carbon Dioxide BUN 20 H Creatinine Glucose 234 H POC Glucose ALT Total Protein 5.7 L Albumin 3.2 L Ur Specific [place] Crossmatch 09/26/18 09/26/18 09/26/18 11:55 17:52 23:32 WBC RBC Hgb Hct MCV MCH MCHC RDW Plt Count Lymph % (Auto) [place] % (Auto) Lymph # [place] # Seg Neutrophils % Seg Neuts % (Manual) Lymphocytes % (Manual) Seg Neutrophils # Lymphocytes # (Manual) POC ABG pCO2 POC ABG pO2 Sodium Potassium Chloride Carbon Dioxide BUN Creatinine Glucose POC Glucose 288 H 292 H 266 H ALT Total Protein Albumin Ur Specific [place] Crossmatch 09/27/18 09/27/18 09/27/18 03:57 04:18 05:01 WBC RBC 3.03 L Hgb 10.0 L Hct 29.6 L MCV 98 H MCH 33 H MCHC RDW Plt Count 138 L Lymph % (Auto) 10.8 L [place] % (Auto) 14.6 H Lymph # 1.1 L [place] # 1.5 H Seg Neutrophils % 74.2 H Seg Neuts % (Manual) Lymphocytes % (Manual) Seg Neutrophils # Lymphocytes # (Manual) POC ABG pCO2 POC ABG pO2 Sodium Potassium 3.5 L Chloride 111.3 H Carbon Dioxide BUN Creatinine Glucose 220 H POC Glucose 250 H ALT 6 L Total Protein 5.4 L Albumin 2.9 L Ur Specific [place] Crossmatch 09/27/18 09/27/18 09/27/18 05:21 11:59 14:29 WBC RBC Hgb Hct MCV MCH MCHC RDW Plt Count Lymph % (Auto) [place] % (Auto) Lymph # [place] # Seg Neutrophils % Seg Neuts % (Manual) Lymphocytes % (Manual) Seg Neutrophils # Lymphocytes # (Manual) POC ABG pCO2 31.1 L POC ABG pO2 148 H 118 H Sodium Potassium Chloride Carbon Dioxide BUN Creatinine Glucose POC Glucose 240 H ALT Total Protein Albumin Ur Specific [place] Crossmatch 09/27/18 09/27/18 09/28/18 18:16 23:26 03:57 WBC 12.7 H RBC 3.05 L Hgb 10.0 L Hct 30.0 L MCV 98 H MCH 33 H MCHC RDW 15.5 H Plt Count Lymph % (Auto) 9.5 L [place] % (Auto) 12.3 H Lymph # [place] # 1.6 H Seg Neutrophils % 77.6 H Seg Neuts % (Manual) Lymphocytes % (Manual) Seg Neutrophils # 9.9 H Lymphocytes # (Manual) POC ABG pCO2 POC ABG pO2 Sodium Potassium Chloride Carbon Dioxide BUN Creatinine Glucose POC Glucose 266 H 242 H ALT Total Protein Albumin Ur Specific [place] Crossmatch 09/28/18 09/28/18 09/28/18 03:57 04:46 05:55 WBC RBC Hgb Hct MCV MCH MCHC RDW Plt Count Lymph % (Auto) [place] % (Auto) Lymph # [place] # Seg Neutrophils % Seg Neuts % (Manual) Lymphocytes % (Manual) Seg Neutrophils # Lymphocytes # (Manual) POC ABG pCO2 POC ABG pO2 136 H Sodium Potassium Chloride 109.9 H Carbon Dioxide 21 L BUN Creatinine 0.6 L Glucose 245 H POC Glucose 270 H ALT Total Protein 5.7 L Albumin 2.8 L Ur Specific [place] Crossmatch 09/28/18 09/28/18 09/28/18 11:51 15:11 17:46 WBC RBC Hgb Hct MCV MCH MCHC RDW Plt Count Lymph % (Auto) [place] % (Auto) Lymph # [place] # Seg Neutrophils % Seg Neuts % (Manual) Lymphocytes % (Manual) Seg Neutrophils # Lymphocytes # (Manual) POC ABG pCO2 32.6 L POC ABG pO2 116 H Sodium Potassium Chloride Carbon Dioxide BUN Creatinine Glucose POC Glucose 335 H 261 H ALT Total Protein Albumin Ur Specific [place] Crossmatch 09/28/18 09/28/18 09/29/18 18:04 23:23 04:00 WBC 11.4 H RBC 2.62 L Hgb 8.7 L Hct 25.4 L MCV MCH 33 H MCHC RDW Plt Count Lymph % (Auto) 7.8 L [place]cd[place] % (Auto) 12.4 H Lymph # 0.9 L [place]cdonald # 1.4 H Seg Neutrophils % 79.7 H Seg Neuts % (Manual) Lymphocytes % (Manual) Seg Neutrophils # 9.1 H Lymphocytes # (Manual) POC ABG pCO2 POC ABG pO2 123 H Sodium Potassium Chloride Carbon Dioxide BUN Creatinine Glucose POC Glucose 209 H ALT Total Protein Albumin Ur Specific [place] Crossmatch 09/29/18 09/29/18 09/29/18 04:00 05:18 11:49 WBC RBC Hgb Hct MCV MCH MCHC RDW Plt Count Lymph % (Auto) [place] % (Auto) Lymph # [place] # Seg Neutrophils % Seg Neuts % (Manual) Lymphocytes % (Manual) Seg Neutrophils # Lymphocytes # (Manual) POC ABG pCO2 POC ABG pO2 Sodium Potassium Chloride 109.7 H Carbon Dioxide BUN Creatinine Glucose 176 H POC Glucose 210 H 255 H ALT 6 L Total Protein 5.5 L Albumin 2.7 L Ur Specific [place] Crossmatch 09/29/18 09/29/18 09/30/18 18:14 23:38 05:00 WBC RBC Hgb Hct MCV MCH MCHC RDW Plt Count Lymph % (Auto) [place] % (Auto) Lymph # [place] # Seg Neutrophils % Seg Neuts % (Manual) Lymphocytes % (Manual) Seg Neutrophils # Lymphocytes # (Manual) POC ABG pCO2 POC ABG pO2 Sodium Potassium Chloride Carbon Dioxide 20 L BUN 30 H Creatinine Glucose 307 H POC Glucose 410 H 280 H ALT Total Protein 5.7 L Albumin 2.5 L Ur Specific [place] Crossmatch 09/30/18 09/30/18 09/30/18 05:36 06:41 11:34 WBC RBC 2.72 L Hgb 8.9 L Hct 27.1 L MCV 100 H MCH 33 H MCHC RDW 15.3 H Plt Count Lymph % (Auto) [place]cd[place] % (Auto) Lymph # [place] # Seg Neutrophils % Seg Neuts % (Manual) 80.0 H Lymphocytes % (Manual) 13.0 L Seg Neutrophils # Lymphocytes # (Manual) 1.1 L POC ABG pCO2 POC ABG pO2 Sodium Potassium Chloride Carbon Dioxide BUN Creatinine Glucose POC Glucose 302 H 318 H ALT Total Protein Albumin Ur Specific [place] Crossmatch 09/30/18 09/30/18 10/01/18 17:50 23:53 03:16 WBC RBC 2.66 L Hgb 8.7 L Hct 25.9 L MCV MCH 33 H MCHC RDW Plt Count Lymph % (Auto) 10.2 L [place] % (Auto) 14.0 H Lymph # 0.9 L [place] # 1.2 H Seg Neutrophils % 75.4 H Seg Neuts % (Manual) Lymphocytes % (Manual) Seg Neutrophils # Lymphocytes # (Manual) POC ABG pCO2 POC ABG pO2 Sodium Potassium Chloride Carbon Dioxide BUN Creatinine Glucose POC Glucose 244 H 236 H ALT Total Protein Albumin Ur Specific [place] Crossmatch 10/01/18 10/01/18 03:16 05:19 WBC RBC Hgb Hct MCV MCH MCHC RDW Plt Count Lymph % (Auto) [place] % (Auto) Lymph # [place] # Seg Neutrophils % Seg Neuts % (Manual) Lymphocytes % (Manual) Seg Neutrophils # Lymphocytes # (Manual) POC ABG pCO2 POC ABG pO2 Sodium Potassium Chloride 111.4 H Carbon Dioxide BUN 31 H Creatinine Glucose 217 H POC Glucose 278 H ALT Total Protein 5.6 L Albumin 2.4 L Ur Specific [place] Crossmatch
--- NOTE | 2018-10-01 17:15 | Event Note ---
Date: 10/01/18 Pt chart reviewed. Patient being treated for CVA. Hb has been stable. No evidence of bright red blood per rectum per nursing. Pt had one dark BM 2 days ago. Recommendation: If patient has further bloody bowel movements or her hemoglobin falls, would recommend a NM tagged red cell scan to try and identify the source of the bleeding. Thereafter, would need interventional radiology to try and embolize the bleed. Please call with questions.
--- NOTE | 2018-10-01 17:51 | Progress Note ---
Assessment and Plan - Patient Problems (1) LGI bleed Current Visit: Yes Plan to address problem: Follow GI , monitor labs. notes reviewed from GI. this is severe diverticular dz., not amendable to surgery. See notes above. Had some evidence of loss. same as above. (2) Dementia Current Visit: Yes Status: Chronic Qualifiers: Alzheimer's disease onset: unspecified onset Dementia behavioral disturbance: without behavioral disturbance Plan to address problem: supportive care. (3) Abdominal pain Current Visit: Yes Status: Acute Plan to address problem: Await scope. resolved. (4) Anemia Current Visit: Yes Status: Acute Plan to address problem: Monitor labs PRN. Transfusion, as necessary. same as above. Stable, post bld transfusion. 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 Awaiting neurology eval. Spoken to neurology. Subjective Date of service: 10/01/18 Principal diagnosis: Ac hypoxemic resp failure; Acute CVA; Ac GI bleed; Ac encephalopathy; DM II Interval history: Patient seen/examined, resting in bed, labs/ notes/consults reviewed. Patient scheduled for a scope tomorrow.I have given some transfusion, and will do H/h q6hrs. Patient seen/examined, resting in bed, labs/ operative notes reviewed.Will restart on IVF, and restart diet tomorrow. Patient seen/examined, resting in bed, notes/labs reviewed. i had spoken to her daughter yesterday, with full update. She is not keen to any aggressive measures, ophelia surgery. She is contemplating AND/vs hospice.She was suppose to think about it, and let us know.Will continue with supportive care for now. Patient seen/examined, resting in bed, labs reviewed. No active bleeding. GI/Surgery notes reviewed also. Patient seen/examined, resting in bed, notes/labs reviewed.No report of any active bleeding at this time. If this remains this way, will discharge back to the [place] 2days ,or so. patient seen/examined, resting in bed, Had a code blue called earlier, and transfered to the unit, and intubated. Ct with contrast showed sub acute CELIO distribution stroke, and acute non hemorrhagic CVA. will consult neurology cathodic protection technician.Hgb dropped by less than a gram, from yesterday, obviously still bleeding. Once feasible, will do red cell tagged scan., and possibly IR intervention, with Embolization of the offending vessel, depending on how far the family wants to go.For now, will continue with replacement blood transfusion. Patient seen/examined, resting in bed, labs reviewed, and stable, post transfusion of 2units PRBC. Awaiting neurology eval/REC. patient seen/examined, resting in bed, still on the vent, but awoken easily.I have reviewed the Neurologist notes. patient s record reviewed, I have spoken to neurology today, about plan of care. Patient seen/examined, resting in bed, labs/records/notes reviewed.No new issues at this time. once stable, clinically, and ok with all involved, will d/c back to the NH. Patient seen/examined, resting in bed, line problems, as per nurse, mid line to be placed.labs reviewed. Patient seen, resting in bed, labs/records reviewed. If no more active bleed, will d/c back to the NH this week, once ok with GI/Neuro. Objective - Constitutional Vitals: Vital Signs - 12hr 10/01/18 10/01/18 10/01/18 06:00 06:11 07:00 Temperature Pulse Rate 74 77 82 Pulse Rate [ Anterior Bilateral] Pulse Rate [ From Monitor] Respiratory 16 19 Rate Respiratory Rate [Abdomen] Respiratory Rate [Anterior Bilateral] Respiratory Rate [Left Knee ] Blood Pressure 107/43 107/43 126/55 O2 Sat by Pulse 100 100 Oximetry 10/01/18 10/01/18 10/01/18 08:00 08:18 08:26 Temperature 98.6 F Pulse Rate 82 Pulse Rate [ 89 Anterior Bilateral] Pulse Rate [ 79 From Monitor] Respiratory 20 Rate Respiratory 18 Rate [Abdomen] Respiratory 19 Rate [Anterior Bilateral] Respiratory 18 Rate [Left Knee ] Blood Pressure 143/47 O2 Sat by Pulse 100 Oximetry 10/01/18 10/01/18 10/01/18 08:57 09:00 09:10 Temperature Pulse Rate 89 88 Pulse Rate [ Anterior Bilateral] Pulse Rate [ From Monitor] Respiratory 20 Rate Respiratory Rate [Abdomen] Respiratory Rate [Anterior Bilateral] Respiratory Rate [Left Knee ] Blood Pressure 151/49 151/49 O2 Sat by Pulse 100 100 Oximetry 10/01/18 10/01/18 10/01/18 10:00 11:00 12:00 Temperature 98.9 F Pulse Rate 82 73 75 Pulse Rate [ Anterior Bilateral] Pulse Rate [ 75 From Monitor] Respiratory 18 23 21 Rate Respiratory Rate [Abdomen] Respiratory Rate [Anterior Bilateral] Respiratory Rate [Left Knee ] Blood Pressure 142/65 150/51 126/52 O2 Sat by Pulse 100 100 100 Oximetry 10/01/18 10/01/18 10/01/18 13:01 14:01 14:23 Temperature Pulse Rate 77 74 Pulse Rate [ 81 Anterior Bilateral] Pulse Rate [ From Monitor] Respiratory 23 21 Rate Respiratory Rate [Abdomen] Respiratory 25 H Rate [Anterior Bilateral] Respiratory Rate [Left Knee ] Blood Pressure 129/97 149/52 O2 Sat by Pulse 100 100 Oximetry 10/01/18 10/01/18 10/01/18 14:24 15:01 16:00 Temperature 97.8 F Pulse Rate 75 75 Pulse Rate [ Anterior Bilateral] Pulse Rate [ From Monitor] Respiratory 22 Rate Respiratory Rate [Abdomen] Respiratory Rate [Anterior Bilateral] Respiratory Rate [Left Knee ] Blood Pressure 149/52 130/44 O2 Sat by Pulse 100 Oximetry General appearance: Present: no acute distress - EENT Eyes: PERRL, EOM intact ENT: hearing intact, clear oral mucosa Ears: bilateral: normal - Neck Neck: supple, normal ROM - Respiratory Respiratory effort: normal Respiratory: bilateral: CTA - Breasts Breasts: deferred - Cardiovascular Rhythm: regular Heart Sounds: Present: S1 & S2. Absent: gallop, rub Extremities: pulses intact, No edema, normal color, Full ROM - Gastrointestinal General gastrointestinal: Present: soft, non-tender, non-distended, normal bowel sounds Rectal Exam: deferred - Genitourinary Female genitourinary: deferred - Integumentary Integumentary: clear, warm, dry - Musculoskeletal Musculoskeletal: 1, strength equal bilaterally - Labs CBC & Chem 7: 10/01/18 03:16 10/01/18 03:16 Labs: Abnormal lab results 09/30/18 09/30/18 10/01/18 Range/Units 17:50 23:53 03:16 RBC 2.66 L (3.65-5.03) M/mm3 Hgb 8.7 L (10.1-14.3) gm/dl Hct 25.9 L (30.3-42.9) % MCH 33 H (28-32) pg Lymph % (Auto) 10.2 L (13.4-35.0) % [place] % (Auto) 14.0 H (0.0-7.3) % Lymph # 0.9 L (1.2-5.4) K/mm3 [place] # 1.2 H (0.0-0.8) K/mm3 Seg Neutrophils % 75.4 H (40.0-70.0) % Chloride (98-107) mmol/L BUN (7-17) mg/dL Glucose (65-100) mg/dL POC Glucose 244 H 236 H (70-105) Total Protein (6.3-8.2) g/dL Albumin (3.9-5) g/dL 10/01/18 10/01/18 10/01/18 Range/Units 03:16 05:19 12:33 RBC (3.65-5.03) M/mm3 Hgb (10.1-14.3) gm/dl Hct (30.3-42.9) % MCH (28-32) pg Lymph % (Auto) (13.4-35.0) % [place] % (Auto) (0.0-7.3) % Lymph # (1.2-5.4) K/mm3 [place] # (0.0-0.8) K/mm3 Seg Neutrophils % (40.0-70.0) % Chloride 111.4 H (98-107) mmol/L BUN 31 H (7-17) mg/dL Glucose 217 H (65-100) mg/dL POC Glucose 278 H 304 H (70-105) Total Protein 5.6 L (6.3-8.2) g/dL Albumin 2.4 L (3.9-5) g/dL
[2018-10-01] MEDS: ARICEPT PO SCH (22:41)
[2018-10-02] MEDS: HumuLIN R SUB-Q SCH ×3 (06:15→18:04)
[2018-10-02] MEDS: ISORDIL TITRADOSE PO SCH ×3 (06:16→22:52)
[2018-10-02] MEDS: DUONEB *Not for PRN Use IH SCH ×3 (08:22→20:15)
[2018-10-02] MEDS: TENORMIN PO SCH (09:10)
[2018-10-02] MEDS: LANTUS SUB-Q SCH (09:10)
[2018-10-02] MEDS: PREVACID SOLUTAB FEEDTUBE SCH ×2 (09:10→21:17)
[2018-10-02] MEDS: TYLENOL PO PRN (09:11)
--- NOTE | 2018-10-02 09:54 | Progress Note ---
Subjective Date of service: 10/02/18 Principal diagnosis: Ac hypoxemic resp failure; Acute CVA; Ac GI bleed; Ac encephalopathy; DM II Interval history: plan the CT of the brain tomorrow as follow up thios is routinue to check process of recovery Objective - Vital Sign Vital Signs - 12hr 10/01/18 10/01/18 10/01/18 22:00 22:41 23:01 Temperature Pulse Rate 83 82 85 Pulse Rate [ Anterior Bilateral] Pulse Rate [ From Monitor] Respiratory 25 H 25 H Rate Respiratory Rate [Abdomen] Respiratory Rate [Anterior Bilateral] Blood Pressure 141/40 150/40 124/44 O2 Sat by Pulse 100 100 Oximetry 10/01/18 10/01/18 10/02/18 23:21 23:28 00:00 Temperature 98.8 F Pulse Rate 86 81 Pulse Rate [ Anterior Bilateral] Pulse Rate [ 79 From Monitor] Respiratory 19 24 Rate Respiratory Rate [Abdomen] Respiratory Rate [Anterior Bilateral] Blood Pressure 124/44 140/42 O2 Sat by Pulse 100 100 Oximetry 10/02/18 10/02/18 10/02/18 00:15 00:32 01:00 Temperature Pulse Rate 78 79 79 Pulse Rate [ Anterior Bilateral] Pulse Rate [ From Monitor] Respiratory 20 20 Rate Respiratory Rate [Abdomen] Respiratory Rate [Anterior Bilateral] Blood Pressure 140/42 129/45 O2 Sat by Pulse 100 100 Oximetry 10/02/18 10/02/18 10/02/18 02:01 03:01 03:40 Temperature 98.8 F Pulse Rate 81 Pulse Rate [ Anterior Bilateral] Pulse Rate [ From Monitor] Respiratory 21 Rate Respiratory Rate [Abdomen] Respiratory Rate [Anterior Bilateral] Blood Pressure 130/47 136/46 O2 Sat by Pulse 100 100 Oximetry 10/02/18 10/02/18 10/02/18 04:00 04:25 04:53 Temperature Pulse Rate 80 81 Pulse Rate [ Anterior Bilateral] Pulse Rate [ 80 From Monitor] Respiratory 18 18 21 Rate Respiratory Rate [Abdomen] Respiratory Rate [Anterior Bilateral] Blood Pressure 154/50 171/51 O2 Sat by Pulse 100 100 100 Oximetry 10/02/18 10/02/18 10/02/18 05:00 06:00 06:16 Temperature Pulse Rate 76 77 78 Pulse Rate [ Anterior Bilateral] Pulse Rate [ From Monitor] Respiratory 17 16 Rate Respiratory Rate [Abdomen] Respiratory Rate [Anterior Bilateral] Blood Pressure 166/49 182/60 182/60 O2 Sat by Pulse 100 100 Oximetry 10/02/18 10/02/18 10/02/18 07:00 07:31 08:00 Temperature 97.6 F Pulse Rate 79 82 83 Pulse Rate [ Anterior Bilateral] Pulse Rate [ 75 From Monitor] Respiratory 18 20 21 Rate Respiratory 18 Rate [Abdomen] Respiratory Rate [Anterior Bilateral] Blood Pressure 122/47 180/59 183/55 O2 Sat by Pulse 100 100 100 Oximetry 10/02/18 10/02/18 10/02/18 08:13 08:30 08:36 Temperature Pulse Rate 85 Pulse Rate [ 88 Anterior Bilateral] Pulse Rate [ From Monitor] Respiratory 26 H Rate Respiratory Rate [Abdomen] Respiratory 22 Rate [Anterior Bilateral] Blood Pressure 168/59 O2 Sat by Pulse 100 100 Oximetry 10/02/18 10/02/18 10/02/18 09:00 09:10 09:11 Temperature Pulse Rate 84 87 Pulse Rate [ Anterior Bilateral] Pulse Rate [ From Monitor] Respiratory 22 24 Rate Respiratory Rate [Abdomen] Respiratory Rate [Anterior Bilateral] Blood Pressure 161/53 161/53 O2 Sat by Pulse 100 Oximetry - Laboratory Findings CBC and BMP: 10/01/18 03:16 10/01/18 03:16 Abnormal Lab Findings: Abnormal Labs 09/19/18 09/19/18 09/19/18 15:11 15:11 16:01 WBC 3.7 L RBC 2.85 L Hgb 9.6 L Hct 28.0 L MCV 99 H MCH 34 H MCHC RDW 12.7 L Plt Count Lymph % (Auto) 41.9 H [place] % (Auto) 14.9 H Lymph # [place] # Seg Neutrophils % Seg Neuts % (Manual) Lymphocytes % (Manual) Seg Neutrophils # 1.5 L Lymphocytes # (Manual) POC ABG pCO2 POC ABG pO2 Sodium Potassium Chloride 107.9 H Carbon Dioxide BUN 23 H Creatinine Glucose 191 H POC Glucose ALT Total Protein Albumin Ur Specific [place] 1.031 H Crossmatch 09/19/18 09/19/18 09/20/18 21:01 21:10 00:22 WBC RBC 2.39 L Hgb 8.1 L Hct 23.6 L MCV 99 H MCH 34 H MCHC RDW 12.5 L Plt Count Lymph % (Auto) [place] % (Auto) 9.9 H Lymph # [place] # Seg Neutrophils % Seg Neuts % (Manual) Lymphocytes % (Manual) Seg Neutrophils # Lymphocytes # (Manual) POC ABG pCO2 POC ABG pO2 Sodium Potassium Chloride Carbon Dioxide BUN Creatinine Glucose POC Glucose 229 H ALT Total Protein Albumin Ur Specific [place] Crossmatch See Detail 09/20/18 09/20/18 09/20/18 06:11 06:15 08:17 WBC RBC 2.27 L Hgb 7.6 L Hct 22.4 L MCV 99 H MCH 34 H MCHC RDW 12.7 L Plt Count Lymph % (Auto) 35.1 H [place] % (Auto) 11.4 H Lymph # [place] # Seg Neutrophils % Seg Neuts % (Manual) Lymphocytes % (Manual) Seg Neutrophils # Lymphocytes # (Manual) POC ABG pCO2 POC ABG pO2 Sodium Potassium Chloride Carbon Dioxide BUN Creatinine Glucose POC Glucose 246 H 253 H ALT Total Protein Albumin Ur Specific [place] Crossmatch 09/20/18 09/20/18 09/20/18 11:52 17:17 21:10 WBC RBC Hgb Hct MCV MCH MCHC RDW Plt Count Lymph % (Auto) [place] % (Auto) Lymph # [place] # Seg Neutrophils % Seg Neuts % (Manual) Lymphocytes % (Manual) Seg Neutrophils # Lymphocytes # (Manual) POC ABG pCO2 POC ABG pO2 Sodium Potassium Chloride Carbon Dioxide BUN Creatinine Glucose POC Glucose 278 H 241 H 245 H ALT Total Protein Albumin Ur Specific [place] Crossmatch 09/21/18 09/21/18 09/21/18 05:15 07:43 16:35 WBC RBC 3.35 L Hgb Hct MCV MCH 33 H MCHC 35 H RDW Plt Count 134 L Lymph % (Auto) [place] % (Auto) 12.4 H Lymph # [place] # 1.0 H Seg Neutrophils % Seg Neuts % (Manual) Lymphocytes % (Manual) Seg Neutrophils # Lymphocytes # (Manual) POC ABG pCO2 POC ABG pO2 Sodium Potassium Chloride Carbon Dioxide BUN Creatinine Glucose POC Glucose 278 H 237 H ALT Total Protein Albumin Ur Specific [place] Crossmatch 09/21/18 09/21/18 09/22/18 19:20 19:42 01:05 WBC RBC 2.66 L 2.43 L Hgb 8.7 L 8.0 L Hct 25.9 L D 23.4 L MCV MCH 33 H 33 H MCHC RDW Plt Count 137 L 127 L Lymph % (Auto) 12.7 L [place] % (Auto) 11.0 H Lymph # [place] # 1.1 H Seg Neutrophils % 75.8 H Seg Neuts % (Manual) Lymphocytes % (Manual) Seg Neutrophils # Lymphocytes # (Manual) POC ABG pCO2 POC ABG pO2 Sodium Potassium Chloride Carbon Dioxide BUN Creatinine Glucose POC Glucose 264 H ALT Total Protein Albumin Ur Specific [place] Crossmatch 09/22/18 09/22/18 09/22/18 05:20 07:29 11:48 WBC RBC 2.43 L Hgb 8.0 L Hct 23.4 L MCV MCH 33 H MCHC RDW Plt Count 118 L Lymph % (Auto) [place] % (Auto) 14.0 H Lymph # [place] # 1.1 H Seg Neutrophils % Seg Neuts % (Manual) Lymphocytes % (Manual) Seg Neutrophils # Lymphocytes # (Manual) POC ABG pCO2 POC ABG pO2 Sodium Potassium Chloride Carbon Dioxide BUN Creatinine Glucose POC Glucose 335 H 300 H ALT Total Protein Albumin Ur Specific [place] Crossmatch 09/22/18 09/22/18 09/23/18 16:55 21:04 04:52 WBC 4.4 L RBC 2.40 L Hgb 8.0 L Hct 23.4 L MCV 98 H MCH 33 H MCHC RDW Plt Count 115 L Lymph % (Auto) [place] % (Auto) 12.2 H Lymph # [place] # Seg Neutrophils % Seg Neuts % (Manual) Lymphocytes % (Manual) Seg Neutrophils # Lymphocytes # (Manual) POC ABG pCO2 POC ABG pO2 Sodium Potassium Chloride Carbon Dioxide BUN Creatinine Glucose POC Glucose 340 H 285 H ALT Total Protein Albumin Ur Specific [place] Crossmatch 09/23/18 09/23/18 09/23/18 04:52 07:33 11:23 WBC RBC Hgb Hct MCV MCH MCHC RDW Plt Count Lymph % (Auto) [place] % (Auto) Lymph # [place] # Seg Neutrophils % Seg Neuts % (Manual) Lymphocytes % (Manual) Seg Neutrophils # Lymphocytes # (Manual) POC ABG pCO2 POC ABG pO2 Sodium Potassium Chloride 110.6 H Carbon Dioxide BUN 19 H Creatinine Glucose 220 H POC Glucose 216 H 307 H ALT Total Protein Albumin Ur Specific [place] Crossmatch 09/23/18 09/23/18 09/24/18 16:23 20:33 06:09 WBC RBC 2.47 L Hgb 8.0 L Hct 24.8 L MCV 100 H MCH 33 H MCHC RDW Plt Count Lymph % (Auto) [place] % (Auto) 11.1 H Lymph # [place] # Seg Neutrophils % Seg Neuts % (Manual) Lymphocytes % (Manual) Seg Neutrophils # Lymphocytes # (Manual) POC ABG pCO2 POC ABG pO2 Sodium Potassium Chloride Carbon Dioxide BUN Creatinine Glucose POC Glucose 361 H 261 H ALT Total Protein Albumin Ur Specific [place] Crossmatch 09/24/18 09/24/18 09/24/18 06:09 08:07 12:06 WBC RBC Hgb Hct MCV MCH MCHC RDW Plt Count Lymph % (Auto) [place] % (Auto) Lymph # [place] # Seg Neutrophils % Seg Neuts % (Manual) Lymphocytes % (Manual) Seg Neutrophils # Lymphocytes # (Manual) POC ABG pCO2 POC ABG pO2 Sodium Potassium Chloride 110.8 H Carbon Dioxide BUN 18 H Creatinine Glucose 135 H POC Glucose 130 H 154 H ALT Total Protein Albumin Ur Specific [place] Crossmatch 09/24/18 09/24/18 09/25/18 16:47 20:55 06:05 WBC RBC 2.14 L Hgb 7.0 L Hct 21.1 L MCV 98 H MCH 33 H MCHC RDW Plt Count Lymph % (Auto) [place] % (Auto) 10.3 H Lymph # [place] # Seg Neutrophils % Seg Neuts % (Manual) Lymphocytes % (Manual) Seg Neutrophils # Lymphocytes # (Manual) POC ABG pCO2 POC ABG pO2 Sodium Potassium Chloride Carbon Dioxide BUN Creatinine Glucose POC Glucose 190 H 233 H ALT Total Protein Albumin Ur Specific [place] Crossmatch 09/25/18 09/25/18 09/25/18 06:05 08:06 11:13 WBC RBC Hgb Hct MCV MCH MCHC RDW Plt Count Lymph % (Auto) [place] % (Auto) Lymph # [place] # Seg Neutrophils % Seg Neuts % (Manual) Lymphocytes % (Manual) Seg Neutrophils # Lymphocytes # (Manual) POC ABG pCO2 POC ABG pO2 Sodium 146 H Potassium Chloride 112.6 H Carbon Dioxide BUN 20 H Creatinine Glucose 243 H POC Glucose 248 H 274 H ALT Total Protein Albumin Ur Specific [place] Crossmatch 09/25/18 09/25/18 09/25/18 14:56 15:05 22:04 WBC RBC 2.31 L Hgb 7.6 L Hct 22.5 L MCV MCH 33 H MCHC RDW Plt Count Lymph % (Auto) [place] % (Auto) Lymph # [place] # Seg Neutrophils % Seg Neuts % (Manual) Lymphocytes % (Manual) Seg Neutrophils # Lymphocytes # (Manual) POC ABG pCO2 POC ABG pO2 Sodium Potassium Chloride Carbon Dioxide BUN Creatinine Glucose POC Glucose 333 H ALT Total Protein Albumin Ur Specific [place] Crossmatch See Detail 09/26/18 09/26/18 09/26/18 03:35 05:15 05:15 WBC 12.6 H RBC 3.21 L Hgb Hct MCV MCH MCHC RDW Plt Count Lymph % (Auto) 10.2 L [place] % (Auto) 11.7 H Lymph # [place] # 1.5 H Seg Neutrophils % 78.0 H Seg Neuts % (Manual) Lymphocytes % (Manual) Seg Neutrophils # 9.9 H Lymphocytes # (Manual) POC ABG pCO2 33.2 L POC ABG pO2 249 H Sodium Potassium Chloride 109.2 H Carbon Dioxide BUN 20 H Creatinine Glucose 234 H POC Glucose ALT Total Protein 5.7 L Albumin 3.2 L Ur Specific [place] Crossmatch 09/26/18 09/26/18 09/26/18 11:55 17:52 23:32 WBC RBC Hgb Hct MCV MCH MCHC RDW Plt Count Lymph % (Auto) [place] % (Auto) Lymph # [place] # Seg Neutrophils % Seg Neuts % (Manual) Lymphocytes % (Manual) Seg Neutrophils # Lymphocytes # (Manual) POC ABG pCO2 POC ABG pO2 Sodium Potassium Chloride Carbon Dioxide BUN Creatinine Glucose POC Glucose 288 H 292 H 266 H ALT Total Protein Albumin Ur Specific [place] Crossmatch 09/27/18 09/27/18 09/27/18 03:57 04:18 05:01 WBC RBC 3.03 L Hgb 10.0 L Hct 29.6 L MCV 98 H MCH 33 H MCHC RDW Plt Count 138 L Lymph % (Auto) 10.8 L [place] % (Auto) 14.6 H Lymph # 1.1 L [place] # 1.5 H Seg Neutrophils % 74.2 H Seg Neuts % (Manual) Lymphocytes % (Manual) Seg Neutrophils # Lymphocytes # (Manual) POC ABG pCO2 POC ABG pO2 Sodium Potassium 3.5 L Chloride 111.3 H Carbon Dioxide BUN Creatinine Glucose 220 H POC Glucose 250 H ALT 6 L Total Protein 5.4 L Albumin 2.9 L Ur Specific [place] Crossmatch 09/27/18 09/27/18 09/27/18 05:21 11:59 14:29 WBC RBC Hgb Hct MCV MCH MCHC RDW Plt Count Lymph % (Auto) [place] % (Auto) Lymph # [place] # Seg Neutrophils % Seg Neuts % (Manual) Lymphocytes % (Manual) Seg Neutrophils # Lymphocytes # (Manual) POC ABG pCO2 31.1 L POC ABG pO2 148 H 118 H Sodium Potassium Chloride Carbon Dioxide BUN Creatinine Glucose POC Glucose 240 H ALT Total Protein Albumin Ur Specific [place] Crossmatch 09/27/18 09/27/18 09/28/18 18:16 23:26 03:57 WBC 12.7 H RBC 3.05 L Hgb 10.0 L Hct 30.0 L MCV 98 H MCH 33 H MCHC RDW 15.5 H Plt Count Lymph % (Auto) 9.5 L [place] % (Auto) 12.3 H Lymph # [place] # 1.6 H Seg Neutrophils % 77.6 H Seg Neuts % (Manual) Lymphocytes % (Manual) Seg Neutrophils # 9.9 H Lymphocytes # (Manual) POC ABG pCO2 POC ABG pO2 Sodium Potassium Chloride Carbon Dioxide BUN Creatinine Glucose POC Glucose 266 H 242 H ALT Total Protein Albumin Ur Specific [place] Crossmatch 09/28/18 09/28/18 09/28/18 03:57 04:46 05:55 WBC RBC Hgb Hct MCV MCH MCHC RDW Plt Count Lymph % (Auto) [place] % (Auto) Lymph # [place] # Seg Neutrophils % Seg Neuts % (Manual) Lymphocytes % (Manual) Seg Neutrophils # Lymphocytes # (Manual) POC ABG pCO2 POC ABG pO2 136 H Sodium Potassium Chloride 109.9 H Carbon Dioxide 21 L BUN Creatinine 0.6 L Glucose 245 H POC Glucose 270 H ALT Total Protein 5.7 L Albumin 2.8 L Ur Specific [place] Crossmatch 09/28/18 09/28/18 09/28/18 11:51 15:11 17:46 WBC RBC Hgb Hct MCV MCH MCHC RDW Plt Count Lymph % (Auto) [place] % (Auto) Lymph # [place] # Seg Neutrophils % Seg Neuts % (Manual) Lymphocytes % (Manual) Seg Neutrophils # Lymphocytes # (Manual) POC ABG pCO2 32.6 L POC ABG pO2 116 H Sodium Potassium Chloride Carbon Dioxide BUN Creatinine Glucose POC Glucose 335 H 261 H ALT Total Protein Albumin Ur Specific [place] Crossmatch 09/28/18 09/28/18 09/29/18 18:04 23:23 04:00 WBC 11.4 H RBC 2.62 L Hgb 8.7 L Hct 25.4 L MCV MCH 33 H MCHC RDW Plt Count Lymph % (Auto) 7.8 L [place] % (Auto) 12.4 H Lymph # 0.9 L [place] # 1.4 H Seg Neutrophils % 79.7 H Seg Neuts % (Manual) Lymphocytes % (Manual) Seg Neutrophils # 9.1 H Lymphocytes # (Manual) POC ABG pCO2 POC ABG pO2 123 H Sodium Potassium Chloride Carbon Dioxide BUN Creatinine Glucose POC Glucose 209 H ALT Total Protein Albumin Ur Specific [place] Crossmatch 09/29/18 09/29/18 09/29/18 04:00 05:18 11:49 WBC RBC Hgb Hct MCV MCH MCHC RDW Plt Count Lymph % (Auto) [place] % (Auto) Lymph # [place] # Seg Neutrophils % Seg Neuts % (Manual) Lymphocytes % (Manual) Seg Neutrophils # Lymphocytes # (Manual) POC ABG pCO2 POC ABG pO2 Sodium Potassium Chloride 109.7 H Carbon Dioxide BUN Creatinine Glucose 176 H POC Glucose 210 H 255 H ALT 6 L Total Protein 5.5 L Albumin 2.7 L Ur Specific [place] Crossmatch 09/29/18 09/29/18 09/30/18 18:14 23:38 05:00 WBC RBC Hgb Hct MCV MCH MCHC RDW Plt Count Lymph % (Auto) [place] % (Auto) Lymph # [place] # Seg Neutrophils % Seg Neuts % (Manual) Lymphocytes % (Manual) Seg Neutrophils # Lymphocytes # (Manual) POC ABG pCO2 POC ABG pO2 Sodium Potassium Chloride Carbon Dioxide 20 L BUN 30 H Creatinine Glucose 307 H POC Glucose 410 H 280 H ALT Total Protein 5.7 L Albumin 2.5 L Ur Specific [place] Crossmatch 09/30/18 09/30/18 09/30/18 05:36 06:41 11:34 WBC RBC 2.72 L Hgb 8.9 L Hct 27.1 L MCV 100 H MCH 33 H MCHC RDW 15.3 H Plt Count Lymph % (Auto) [place] % (Auto) Lymph # [place] # Seg Neutrophils % Seg Neuts % (Manual) 80.0 H Lymphocytes % (Manual) 13.0 L Seg Neutrophils # Lymphocytes # (Manual) 1.1 L POC ABG pCO2 POC ABG pO2 Sodium Potassium Chloride Carbon Dioxide BUN Creatinine Glucose POC Glucose 302 H 318 H ALT Total Protein Albumin Ur Specific [place] Crossmatch 09/30/18 09/30/18 10/01/18 17:50 23:53 03:16 WBC RBC 2.66 L Hgb 8.7 L Hct 25.9 L MCV MCH 33 H MCHC RDW Plt Count Lymph % (Auto) 10.2 L [place] % (Auto) 14.0 H Lymph # 0.9 L [place] # 1.2 H Seg Neutrophils % 75.4 H Seg Neuts % (Manual) Lymphocytes % (Manual) Seg Neutrophils # Lymphocytes # (Manual) POC ABG pCO2 POC ABG pO2 Sodium Potassium Chloride Carbon Dioxide BUN Creatinine Glucose POC Glucose 244 H 236 H ALT Total Protein Albumin Ur Specific [place] Crossmatch 10/01/18 10/01/18 10/01/18 03:16 05:19 12:33 WBC RBC Hgb Hct MCV MCH MCHC RDW Plt Count Lymph % (Auto) [place] % (Auto) Lymph # [place] # Seg Neutrophils % Seg Neuts % (Manual) Lymphocytes % (Manual) Seg Neutrophils # Lymphocytes # (Manual) POC ABG pCO2 POC ABG pO2 Sodium Potassium Chloride 111.4 H Carbon Dioxide BUN 31 H Creatinine Glucose 217 H POC Glucose 278 H 304 H ALT Total Protein 5.6 L Albumin 2.4 L Ur Specific [place] Crossmatch 10/01/18 10/01/18 10/02/18 18:18 23:12 05:13 WBC RBC Hgb Hct MCV MCH MCHC RDW Plt Count Lymph % (Auto) [place] % (Auto) Lymph # [place] # Seg Neutrophils % Seg Neuts % (Manual) Lymphocytes % (Manual) Seg Neutrophils # Lymphocytes # (Manual) POC ABG pCO2 POC ABG pO2 Sodium Potassium Chloride Carbon Dioxide BUN Creatinine Glucose POC Glucose 212 H 212 H 207 H ALT Total Protein Albumin Ur Specific [place] Crossmatch
--- NOTE | 2018-10-02 15:11 | Progress Note ---
Assessment and Plan - Patient Problems (1) LGI bleed Current Visit: Yes Plan to address problem: Follow GI , monitor labs. notes reviewed from GI. this is severe diverticular dz., not amendable to surgery. See notes above. Had some evidence of loss. same as above. (2) Dementia Current Visit: Yes Status: Chronic Qualifiers: Alzheimer's disease onset: unspecified onset Dementia behavioral disturbance: without behavioral disturbance Plan to address problem: supportive care. (3) Abdominal pain Current Visit: Yes Status: Acute Plan to address problem: Await scope. resolved. (4) Anemia Current Visit: Yes Status: Acute Plan to address problem: Monitor labs PRN. Transfusion, as necessary. same as above. Stable, post bld transfusion. 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 Awaiting neurology eval. Spoken to neurology. Subjective Date of service: 10/02/18 Principal diagnosis: Ac hypoxemic resp failure; Acute CVA; Ac GI bleed; Ac encephalopathy; DM II Interval history: Patient seen/examined, resting in bed, labs/ notes/consults reviewed. Patient scheduled for a scope tomorrow.I have given some transfusion, and will do H/h q6hrs. Patient seen/examined, resting in bed, labs/ operative notes reviewed.Will restart on IVF, and restart diet tomorrow. Patient seen/examined, resting in bed, notes/labs reviewed. i had spoken to her daughter yesterday, with full update. She is not keen to any aggressive measures, ophelia surgery. She is contemplating AND/vs hospice.She was suppose to think about it, and let us know.Will continue with supportive care for now. Patient seen/examined, resting in bed, labs reviewed. No active bleeding. GI/Surgery notes reviewed also. Patient seen/examined, resting in bed, notes/labs reviewed.No report of any active bleeding at this time. If this remains this way, will discharge back to the [place] 2days ,or so. patient seen/examined, resting in bed, Had a code blue called earlier, and transfered to the unit, and intubated. Ct with contrast showed sub acute CELIO distribution stroke, and acute non hemorrhagic CVA. will consult neurology avionics engineer.Hgb dropped by less than a gram, from yesterday, obviously still bleeding. Once feasible, will do red cell tagged scan., and possibly IR intervention, with Embolization of the offending vessel, depending on how far the family wants to go.For now, will continue with replacement blood transfusion. Patient seen/examined, resting in bed, labs reviewed, and stable, post transfusion of 2units PRBC. Awaiting neurology eval/REC. patient seen/examined, resting in bed, still on the vent, but awoken easily.I have reviewed the Neurologist notes. patient s record reviewed, I have spoken to neurology today, about plan of care. Patient seen/examined, resting in bed, labs/records/notes reviewed.No new issues at this time. once stable, clinically, and ok with all involved, will d/c back to the NH. Patient seen/examined, resting in bed, line problems, as per nurse, mid line to be placed.labs reviewed. Patient seen, resting in bed, labs/records reviewed. If no more active bleed, will d/c back to the NH this week, once ok with GI/Neuro. patient seen, resting in bed, d/w neuro, and pulm, peg tube needed, and ordered, will speak more to the family.once peg placed, will d/c back to the NH. Objective - Constitutional Vitals: Vital Signs - 12hr 10/02/18 10/02/18 10/02/18 03:40 04:00 04:25 Temperature 98.8 F Pulse Rate 80 Pulse Rate [ Anterior Bilateral] Pulse Rate [ 80 From Monitor] Respiratory 18 18 Rate Respiratory Rate [Abdomen] Respiratory Rate [Anterior Bilateral] Blood Pressure 154/50 O2 Sat by Pulse 100 100 Oximetry 10/02/18 10/02/18 10/02/18 04:53 05:00 06:00 Temperature Pulse Rate 81 76 77 Pulse Rate [ Anterior Bilateral] Pulse Rate [ From Monitor] Respiratory 21 17 16 Rate Respiratory Rate [Abdomen] Respiratory Rate [Anterior Bilateral] Blood Pressure 171/51 166/49 182/60 O2 Sat by Pulse 100 100 100 Oximetry 10/02/18 10/02/18 10/02/18 06:16 07:00 07:31 Temperature Pulse Rate 78 79 82 Pulse Rate [ Anterior Bilateral] Pulse Rate [ From Monitor] Respiratory 18 20 Rate Respiratory Rate [Abdomen] Respiratory Rate [Anterior Bilateral] Blood Pressure 182/60 122/47 180/59 O2 Sat by Pulse 100 100 Oximetry 10/02/18 10/02/18 10/02/18 08:00 08:13 08:30 Temperature 97.6 F Pulse Rate 83 85 Pulse Rate [ Anterior Bilateral] Pulse Rate [ 75 From Monitor] Respiratory 21 26 H Rate Respiratory 18 Rate [Abdomen] Respiratory Rate [Anterior Bilateral] Blood Pressure 183/55 168/59 O2 Sat by Pulse 100 100 100 Oximetry 10/02/18 10/02/18 10/02/18 08:36 09:00 09:10 Temperature Pulse Rate 84 87 Pulse Rate [ 88 Anterior Bilateral] Pulse Rate [ From Monitor] Respiratory 22 Rate Respiratory Rate [Abdomen] Respiratory 22 Rate [Anterior Bilateral] Blood Pressure 161/53 161/53 O2 Sat by Pulse 100 Oximetry 10/02/18 10/02/18 10/02/18 09:11 09:31 10:00 Temperature Pulse Rate 82 72 Pulse Rate [ Anterior Bilateral] Pulse Rate [ From Monitor] Respiratory 24 22 20 Rate Respiratory Rate [Abdomen] Respiratory Rate [Anterior Bilateral] Blood Pressure 147/51 135/41 O2 Sat by Pulse 100 100 Oximetry 10/02/18 10/02/18 10/02/18 10:11 10:30 11:00 Temperature Pulse Rate 71 69 Pulse Rate [ Anterior Bilateral] Pulse Rate [ From Monitor] Respiratory 17 19 20 Rate Respiratory Rate [Abdomen] Respiratory Rate [Anterior Bilateral] Blood Pressure 137/44 125/41 O2 Sat by Pulse 100 100 Oximetry 10/02/18 10/02/18 10/02/18 11:30 12:00 12:31 Temperature 97.2 F L Pulse Rate 69 64 72 Pulse Rate [ Anterior Bilateral] Pulse Rate [ 66 From Monitor] Respiratory 19 20 21 Rate Respiratory Rate [Abdomen] Respiratory Rate [Anterior Bilateral] Blood Pressure 134/44 132/46 130/55 O2 Sat by Pulse 100 100 100 Oximetry 10/02/18 10/02/18 10/02/18 13:01 13:30 13:35 Temperature Pulse Rate 65 67 71 Pulse Rate [ Anterior Bilateral] Pulse Rate [ From Monitor] Respiratory 16 17 Rate Respiratory Rate [Abdomen] Respiratory Rate [Anterior Bilateral] Blood Pressure 97/33 101/35 101/35 O2 Sat by Pulse 100 100 Oximetry 10/02/18 10/02/18 10/02/18 14:00 14:24 14:30 Temperature Pulse Rate 71 73 Pulse Rate [ 74 Anterior Bilateral] Pulse Rate [ From Monitor] Respiratory 21 16 Rate Respiratory Rate [Abdomen] Respiratory 18 Rate [Anterior Bilateral] Blood Pressure 142/40 150/50 O2 Sat by Pulse 100 100 Oximetry General appearance: Present: no acute distress, cachectic - EENT Eyes: PERRL, EOM intact ENT: hearing intact, clear oral mucosa Ears: bilateral: normal - Neck Neck: supple, normal ROM - Respiratory Respiratory effort: normal Respiratory: bilateral: CTA - Breasts Breasts: deferred - Cardiovascular Rhythm: regular Heart Sounds: Present: S1 & S2. Absent: gallop, rub Extremities: pulses intact, No edema, normal color, Full ROM - Gastrointestinal General gastrointestinal: Present: soft, non-tender, non-distended, normal bowel sounds Rectal Exam: deferred - Genitourinary Female genitourinary: deferred - Integumentary Integumentary: clear, warm, dry - Musculoskeletal Musculoskeletal: 1, strength equal bilaterally - Neurologic Neurologic: moves all extremities - Labs CBC & Chem 7: 10/01/18 03:16 10/01/18 03:16 Labs: Abnormal lab results 10/01/18 10/01/18 10/02/18 Range/Units 18:18 23:12 05:13 POC Glucose 212 H 212 H 207 H (70-105) 10/02/18 Range/Units 11:37 POC Glucose 227 H (70-105)
[2018-10-02 16:53] LABS: Hematocrit 23.1 % (30.3-42.9); Hemoglobin 7.6 gm/dl (10.1-14.3); Mean Corpuscular HGB Conc 33 % (30-34); Mean Corpuscular Volume 98 fl (79-97); Platelet Count 222 K/mm3 (140-440); Red Blood Count 2.35 M/mm3 (3.65-5.03); Red Cell Distribution Width 15.4 % (13.2-15.2)
[2018-10-02 17:10] LABS: Alanine Aminotransferase 10 units/L (7-56); Albumin 2.4 g/dL (3.9-5); BUN/Creatinine Ratio 52; Blood Urea Nitrogen 31 mg/dL (7-17); Calcium 8.5 mg/dL (8.4-10.2); Hemolysis Index 8
[2018-10-02 17:12] LABS: Partial Thromboplastin Time 29.3 Sec. (24.2-36.6)
[2018-10-02 17:16] LABS: INR 1.04 (0.87-1.13)
[2018-10-02 18:16] LABS: Anisocytosis 2+; Basophils % (Manual) 0 % (0.0-1.8); Eosinophils % (Manual) 0 % (0.0-4.3); Total Cells Counted 100
[2018-10-02 18:17] LABS: Hypochromasia 1+; Ovalocytes Few
--- NOTE | 2018-10-02 19:39 | Progress Note ---
Assessment and Plan Acute hypoxemic respiratory failure . Acute gastrointestinal bleed. Acute encephalopathy, metabolic. History of coronary artery disease. History of gastroesophageal reflux disease. History of diabetes. Hypertension. History of a prior cerebrovascular accident. Arthritis. Dementia - continue bronchodilators with pulmonary hygiene per RT -Nocturnal BIPAP and prn - continue enteral nutrition as tolerated - continue supplemental oxygen as needed to keep O2 sat's > 90% - continue accuchecks with glycemic control per SSI for target blood glucose <180mg/dL - Prevention of delirium, maintenance of sleep-wake cycle - VTE prophylaxis - Surgery consult for PEG tube placement if no improvement in mental status by Wednesday Discussed wiht primary admitting and he states he will have discussions with the family re PEG placement. -PT/OT, mobility -Mobility for pressure ulcer prevention CONDITION: CRITICAL PROGNOSIS: GUARDED CODE STATUS: FULL CODE The high probability of a clinically significant, sudden or life-threatening deterioration of the [respiratory and neurologic] system(s) required my full and direct attention, intervention and personal management. The aggregate critical care time was [35] minutes without overlap. Time includes spent on; [x] Data Review and interpretation [x] Patient assessment and monitoring of vital signs [x] Documentation [x] Medication orders and management Subjective Date of service: 10/02/18 Principal diagnosis: Ac hypoxemic resp failure; Acute CVA; Ac GI bleed; Ac encephalopathy; DM II Interval history: Patient is seen today for: Acute hypoxemic respiratory failure; Acute CVA; Acute gastrointestinal bleed; Acute encephalopathy; CAD; GERD; DM II; HTN; Arthritis; Dementia. Seen and examined at bedside; 24hour events reviewed; nursing and respiratory c are staff consulted; no adverse overnight events reported to me; remains on NIPPV ; following simple commands; No N/V/F/C; CT brain revealed acute on subacute CVA ; no seizures; no gross G.I. re-bleeding: no fevers, no vomiting, tolerating tube feeding. Vitals, labs,medications, chart reviewed. Mental status changes persist, on going need for supportive BIPAP Objective Vital Signs - 12hr 10/02/18 10/02/18 10/02/18 08:00 08:13 08:30 Temperature 97.6 F Pulse Rate 83 85 Pulse Rate [ Anterior Bilateral] Pulse Rate [ 75 From Monitor] Respiratory 21 26 H Rate Respiratory 18 Rate [Abdomen] Respiratory Rate [Anterior Bilateral] Blood Pressure 183/55 168/59 O2 Sat by Pulse 100 100 100 Oximetry 10/02/18 10/02/18 10/02/18 08:36 09:00 09:10 Temperature Pulse Rate 84 87 Pulse Rate [ 88 Anterior Bilateral] Pulse Rate [ From Monitor] Respiratory 22 Rate Respiratory Rate [Abdomen] Respiratory 22 Rate [Anterior Bilateral] Blood Pressure 161/53 161/53 O2 Sat by Pulse 100 Oximetry 10/02/18 10/02/18 10/02/18 09:11 09:31 10:00 Temperature Pulse Rate 82 72 Pulse Rate [ Anterior Bilateral] Pulse Rate [ From Monitor] Respiratory 24 22 20 Rate Respiratory Rate [Abdomen] Respiratory Rate [Anterior Bilateral] Blood Pressure 147/51 135/41 O2 Sat by Pulse 100 100 Oximetry 10/02/18 10/02/18 10/02/18 10:11 10:30 11:00 Temperature Pulse Rate 71 69 Pulse Rate [ Anterior Bilateral] Pulse Rate [ From Monitor] Respiratory 17 19 20 Rate Respiratory Rate [Abdomen] Respiratory Rate [Anterior Bilateral] Blood Pressure 137/44 125/41 O2 Sat by Pulse 100 100 Oximetry 10/02/18 10/02/18 10/02/18 11:30 12:00 12:31 Temperature 97.2 F L Pulse Rate 69 64 72 Pulse Rate [ Anterior Bilateral] Pulse Rate [ 66 From Monitor] Respiratory 19 20 21 Rate Respiratory Rate [Abdomen] Respiratory Rate [Anterior Bilateral] Blood Pressure 134/44 132/46 130/55 O2 Sat by Pulse 100 100 100 Oximetry 10/02/18 10/02/18 10/02/18 13:01 13:30 13:35 Temperature Pulse Rate 65 67 71 Pulse Rate [ Anterior Bilateral] Pulse Rate [ From Monitor] Respiratory 16 17 Rate Respiratory Rate [Abdomen] Respiratory Rate [Anterior Bilateral] Blood Pressure 97/33 101/35 101/35 O2 Sat by Pulse 100 100 Oximetry 10/02/18 10/02/18 10/02/18 14:00 14:24 14:30 Temperature Pulse Rate 71 73 Pulse Rate [ 74 Anterior Bilateral] Pulse Rate [ From Monitor] Respiratory 21 16 Rate Respiratory Rate [Abdomen] Respiratory 18 Rate [Anterior Bilateral] Blood Pressure 142/40 150/50 O2 Sat by Pulse 100 100 Oximetry 10/02/18 10/02/18 10/02/18 15:00 15:31 16:00 Temperature 98.1 F Pulse Rate 74 77 78 Pulse Rate [ Anterior Bilateral] Pulse Rate [ 84 From Monitor] Respiratory 19 23 21 Rate Respiratory Rate [Abdomen] Respiratory Rate [Anterior Bilateral] Blood Pressure 133/40 140/30 139/43 O2 Sat by Pulse 100 100 100 Oximetry 10/02/18 10/02/18 10/02/18 16:30 17:00 17:30 Temperature Pulse Rate 78 84 79 Pulse Rate [ Anterior Bilateral] Pulse Rate [ From Monitor] Respiratory 22 18 22 Rate Respiratory Rate [Abdomen] Respiratory Rate [Anterior Bilateral] Blood Pressure 127/38 136/40 143/44 O2 Sat by Pulse 100 100 100 Oximetry 10/02/18 10/02/18 18:00 18:30 Temperature Pulse Rate 82 78 Pulse Rate [ Anterior Bilateral] Pulse Rate [ From Monitor] Respiratory 21 19 Rate Respiratory Rate [Abdomen] Respiratory Rate [Anterior Bilateral] Blood Pressure 136/56 138/51 O2 Sat by Pulse 100 100 Oximetry Constitutional: no acute distress, other (elderly looking AAF, normocephalic and atraumatic with mildly increased resp effort on BIPAP) Eyes: non-icteric ENT: oropharynx moist Neck: supple, no lymphadenopathy, no JVD Effort: mildly labored Ascultation: Bilateral: diminished breath sounds, wheezes, rhonchi Percussion: Bilateral: not dull Cardiovascular: regular rate and rhythm, other (S1,S2) Gastrointestinal: normoactive bowel sounds, soft, non-tender, non-distended Integumentary: normal Extremities: no cyanosis, no edema, pulses normal, no ischemia or petechiae Neurologic: pupils equal and round, other (Left hemiparesis, will squeeze with right hand intermittently) Psychiatric: mood appropriate, other (unable to assess) CBC and BMP: 10/02/18 16:17 10/02/18 16:17 ABG, PT/INR, D-dimer: ABG POC ABG pH 7.364 (7.35-7.45) 09/28/18 18:04 POC ABG pCO2 38.2 (35-45) 09/28/18 18:04 POC ABG pO2 123 (80-105) H 09/28/18 18:04 POC ABG HCO3 21.8 (22-26 mml/L) 09/28/18 18:04 POC ABG Total CO2 23 (23-27mmol/L) 09/28/18 18:04 POC ABG O2 Sat 99 09/28/18 18:04 PT/INR, D-dimer PT 13.3 Sec. (12.2-14.9) 10/02/18 16:17 INR 1.04 (0.87-1.13) 10/02/18 16:17 Abnormal lab findings: Abnormal Labs 09/19/18 09/19/18 09/19/18 15:11 15:11 16:01 WBC 3.7 L RBC 2.85 L Hgb 9.6 L Hct 28.0 L MCV 99 H MCH 34 H MCHC RDW 12.7 L Plt Count Lymph % (Auto) 41.9 H [place] % (Auto) 14.9 H Lymph # [place] # Seg Neutrophils % Seg Neuts % (Manual) Lymphocytes % (Manual) Monocytes % (Manual) Seg Neutrophils # 1.5 L Lymphocytes # (Manual) POC ABG pCO2 POC ABG pO2 Sodium Potassium Chloride 107.9 H Carbon Dioxide BUN 23 H Creatinine Glucose 191 H POC Glucose ALT Total Protein Albumin Ur Specific [place] 1.031 H Crossmatch 09/19/18 09/19/18 09/20/18 21:01 21:10 00:22 WBC RBC 2.39 L Hgb 8.1 L Hct 23.6 L MCV 99 H MCH 34 H MCHC RDW 12.5 L Plt Count Lymph % (Auto) [place] % (Auto) 9.9 H Lymph # [place] # Seg Neutrophils % Seg Neuts % (Manual) Lymphocytes % (Manual) Monocytes % (Manual) Seg Neutrophils # Lymphocytes # (Manual) POC ABG pCO2 POC ABG pO2 Sodium Potassium Chloride Carbon Dioxide BUN Creatinine Glucose POC Glucose 229 H ALT Total Protein Albumin Ur Specific [place] Crossmatch See Detail 09/20/18 09/20/18 09/20/18 06:11 06:15 08:17 WBC RBC 2.27 L Hgb 7.6 L Hct 22.4 L MCV 99 H MCH 34 H MCHC RDW 12.7 L Plt Count Lymph % (Auto) 35.1 H [place] % (Auto) 11.4 H Lymph # [place] # Seg Neutrophils % Seg Neuts % (Manual) Lymphocytes % (Manual) Monocytes % (Manual) Seg Neutrophils # Lymphocytes # (Manual) POC ABG pCO2 POC ABG pO2 Sodium Potassium Chloride Carbon Dioxide BUN Creatinine Glucose POC Glucose 246 H 253 H ALT Total Protein Albumin Ur Specific [place] Crossmatch 09/20/18 09/20/18 09/20/18 11:52 17:17 21:10 WBC RBC Hgb Hct MCV MCH MCHC RDW Plt Count Lymph % (Auto) [place] % (Auto) Lymph # [place] # Seg Neutrophils % Seg Neuts % (Manual) Lymphocytes % (Manual) Monocytes % (Manual) Seg Neutrophils # Lymphocytes # (Manual) POC ABG pCO2 POC ABG pO2 Sodium Potassium Chloride Carbon Dioxide BUN Creatinine Glucose POC Glucose 278 H 241 H 245 H ALT Total Protein Albumin Ur Specific [place] Crossmatch 09/21/18 09/21/18 09/21/18 05:15 07:43 16:35 WBC RBC 3.35 L Hgb Hct MCV MCH 33 H MCHC 35 H RDW Plt Count 134 L Lymph % (Auto) [place] % (Auto) 12.4 H Lymph # [place] # 1.0 H Seg Neutrophils % Seg Neuts % (Manual) Lymphocytes % (Manual) Monocytes % (Manual) Seg Neutrophils # Lymphocytes # (Manual) POC ABG pCO2 POC ABG pO2 Sodium Potassium Chloride Carbon Dioxide BUN Creatinine Glucose POC Glucose 278 H 237 H ALT Total Protein Albumin Ur Specific [place] Crossmatch 09/21/18 09/21/18 09/22/18 19:20 19:42 01:05 WBC RBC 2.66 L 2.43 L Hgb 8.7 L 8.0 L Hct 25.9 L D 23.4 L MCV MCH 33 H 33 H MCHC RDW Plt Count 137 L 127 L Lymph % (Auto) 12.7 L [place] % (Auto) 11.0 H Lymph # [place] # 1.1 H Seg Neutrophils % 75.8 H Seg Neuts % (Manual) Lymphocytes % (Manual) Monocytes % (Manual) Seg Neutrophils # Lymphocytes # (Manual) POC ABG pCO2 POC ABG pO2 Sodium Potassium Chloride Carbon Dioxide BUN Creatinine Glucose POC Glucose 264 H ALT Total Protein Albumin Ur Specific [place] Crossmatch 09/22/18 09/22/18 09/22/18 05:20 07:29 11:48 WBC RBC 2.43 L Hgb 8.0 L Hct 23.4 L MCV MCH 33 H MCHC RDW Plt Count 118 L Lymph % (Auto) [place] % (Auto) 14.0 H Lymph # [place] # 1.1 H Seg Neutrophils % Seg Neuts % (Manual) Lymphocytes % (Manual) Monocytes % (Manual) Seg Neutrophils # Lymphocytes # (Manual) POC ABG pCO2 POC ABG pO2 Sodium Potassium Chloride Carbon Dioxide BUN Creatinine Glucose POC Glucose 335 H 300 H ALT Total Protein Albumin Ur Specific [place] Crossmatch 09/22/18 09/22/18 09/23/18 16:55 21:04 04:52 WBC 4.4 L RBC 2.40 L Hgb 8.0 L Hct 23.4 L MCV 98 H MCH 33 H MCHC RDW Plt Count 115 L Lymph % (Auto) [place] % (Auto) 12.2 H Lymph # [place] # Seg Neutrophils % Seg Neuts % (Manual) Lymphocytes % (Manual) Monocytes % (Manual) Seg Neutrophils # Lymphocytes # (Manual) POC ABG pCO2 POC ABG pO2 Sodium Potassium Chloride Carbon Dioxide BUN Creatinine Glucose POC Glucose 340 H 285 H ALT Total Protein Albumin Ur Specific [place] Crossmatch 09/23/18 09/23/18 09/23/18 04:52 07:33 11:23 WBC RBC Hgb Hct MCV MCH MCHC RDW Plt Count Lymph % (Auto) [place] % (Auto) Lymph # [place] # Seg Neutrophils % Seg Neuts % (Manual) Lymphocytes % (Manual) Monocytes % (Manual) Seg Neutrophils # Lymphocytes # (Manual) POC ABG pCO2 POC ABG pO2 Sodium Potassium Chloride 110.6 H Carbon Dioxide BUN 19 H Creatinine Glucose 220 H POC Glucose 216 H 307 H ALT Total Protein Albumin Ur Specific [place] Crossmatch 09/23/18 09/23/18 09/24/18 16:23 20:33 06:09 WBC RBC 2.47 L Hgb 8.0 L Hct 24.8 L MCV 100 H MCH 33 H MCHC RDW Plt Count Lymph % (Auto) [place] % (Auto) 11.1 H Lymph # [place] # Seg Neutrophils % Seg Neuts % (Manual) Lymphocytes % (Manual) Monocytes % (Manual) Seg Neutrophils # Lymphocytes # (Manual) POC ABG pCO2 POC ABG pO2 Sodium Potassium Chloride Carbon Dioxide BUN Creatinine Glucose POC Glucose 361 H 261 H ALT Total Protein Albumin Ur Specific [place] Crossmatch 09/24/18 09/24/18 09/24/18 06:09 08:07 12:06 WBC RBC Hgb Hct MCV MCH MCHC RDW Plt Count Lymph % (Auto) [place] % (Auto) Lymph # [place] # Seg Neutrophils % Seg Neuts % (Manual) Lymphocytes % (Manual) Monocytes % (Manual) Seg Neutrophils # Lymphocytes # (Manual) POC ABG pCO2 POC ABG pO2 Sodium Potassium Chloride 110.8 H Carbon Dioxide BUN 18 H Creatinine Glucose 135 H POC Glucose 130 H 154 H ALT Total Protein Albumin Ur Specific [place] Crossmatch 09/24/18 09/24/18 09/25/18 16:47 20:55 06:05 WBC RBC 2.14 L Hgb 7.0 L Hct 21.1 L MCV 98 H MCH 33 H MCHC RDW Plt Count Lymph % (Auto) [place] % (Auto) 10.3 H Lymph # [place] # Seg Neutrophils % Seg Neuts % (Manual) Lymphocytes % (Manual) Monocytes % (Manual) Seg Neutrophils # Lymphocytes # (Manual) POC ABG pCO2 POC ABG pO2 Sodium Potassium Chloride Carbon Dioxide BUN Creatinine Glucose POC Glucose 190 H 233 H ALT Total Protein Albumin Ur Specific [place] Crossmatch 09/25/18 09/25/18 09/25/18 06:05 08:06 11:13 WBC RBC Hgb Hct MCV MCH MCHC RDW Plt Count Lymph % (Auto) [place] % (Auto) Lymph # [place] # Seg Neutrophils % Seg Neuts % (Manual) Lymphocytes % (Manual) Monocytes % (Manual) Seg Neutrophils # Lymphocytes # (Manual) POC ABG pCO2 POC ABG pO2 Sodium 146 H Potassium Chloride 112.6 H Carbon Dioxide BUN 20 H Creatinine Glucose 243 H POC Glucose 248 H 274 H ALT Total Protein Albumin Ur Specific [place] Crossmatch 09/25/18 09/25/18 09/25/18 14:56 15:05 22:04 WBC RBC 2.31 L Hgb 7.6 L Hct 22.5 L MCV MCH 33 H MCHC RDW Plt Count Lymph % (Auto) [place] % (Auto) Lymph # [place] # Seg Neutrophils % Seg Neuts % (Manual) Lymphocytes % (Manual) Monocytes % (Manual) Seg Neutrophils # Lymphocytes # (Manual) POC ABG pCO2 POC ABG pO2 Sodium Potassium Chloride Carbon Dioxide BUN Creatinine Glucose POC Glucose 333 H ALT Total Protein Albumin Ur Specific [place] Crossmatch See Detail 09/26/18 09/26/18 09/26/18 03:35 05:15 05:15 WBC 12.6 H RBC 3.21 L Hgb Hct MCV MCH MCHC RDW Plt Count Lymph % (Auto) 10.2 L [place] % (Auto) 11.7 H Lymph # [place] # 1.5 H Seg Neutrophils % 78.0 H Seg Neuts % (Manual) Lymphocytes % (Manual) Monocytes % (Manual) Seg Neutrophils # 9.9 H Lymphocytes # (Manual) POC ABG pCO2 33.2 L POC ABG pO2 249 H Sodium Potassium Chloride 109.2 H Carbon Dioxide BUN 20 H Creatinine Glucose 234 H POC Glucose ALT Total Protein 5.7 L Albumin 3.2 L Ur Specific [place] Crossmatch 09/26/18 09/26/18 09/26/18 11:55 17:52 23:32 WBC RBC Hgb Hct MCV MCH MCHC RDW Plt Count Lymph % (Auto) [place] % (Auto) Lymph # [place] # Seg Neutrophils % Seg Neuts % (Manual) Lymphocytes % (Manual) Monocytes % (Manual) Seg Neutrophils # Lymphocytes # (Manual) POC ABG pCO2 POC ABG pO2 Sodium Potassium Chloride Carbon Dioxide BUN Creatinine Glucose POC Glucose 288 H 292 H 266 H ALT Total Protein Albumin Ur Specific [place] Crossmatch 09/27/18 09/27/18 09/27/18 03:57 04:18 05:01 WBC RBC 3.03 L Hgb 10.0 L Hct 29.6 L MCV 98 H MCH 33 H MCHC RDW Plt Count 138 L Lymph % (Auto) 10.8 L [place] % (Auto) 14.6 H Lymph # 1.1 L [place] # 1.5 H Seg Neutrophils % 74.2 H Seg Neuts % (Manual) Lymphocytes % (Manual) Monocytes % (Manual) Seg Neutrophils # Lymphocytes # (Manual) POC ABG pCO2 POC ABG pO2 Sodium Potassium 3.5 L Chloride 111.3 H Carbon Dioxide BUN Creatinine Glucose 220 H POC Glucose 250 H ALT 6 L Total Protein 5.4 L Albumin 2.9 L Ur Specific [place] Crossmatch 09/27/18 09/27/18 09/27/18 05:21 11:59 14:29 WBC RBC Hgb Hct MCV MCH MCHC RDW Plt Count Lymph % (Auto) [place] % (Auto) Lymph # [place] # Seg Neutrophils % Seg Neuts % (Manual) Lymphocytes % (Manual) Monocytes % (Manual) Seg Neutrophils # Lymphocytes # (Manual) POC ABG pCO2 31.1 L POC ABG pO2 148 H 118 H Sodium Potassium Chloride Carbon Dioxide BUN Creatinine Glucose POC Glucose 240 H ALT Total Protein Albumin Ur Specific [place] Crossmatch 07/16/19 07/16/19 07/17/19 18:16 23:26 03:57 WBC 12.7 H RBC 3.05 L Hgb 10.0 L Hct 30.0 L MCV 98 H MCH 33 H MCHC RDW 15.5 H Plt Count Lymph % (Auto) 9.5 L [place] % (Auto) 12.3 H Lymph # [place] # 1.6 H Seg Neutrophils % 77.6 H Seg Neuts % (Manual) Lymphocytes % (Manual) Monocytes % (Manual) Seg Neutrophils # 9.9 H Lymphocytes # (Manual) POC ABG pCO2 POC ABG pO2 Sodium Potassium Chloride Carbon Dioxide BUN Creatinine Glucose POC Glucose 266 H 242 H ALT Total Protein Albumin Ur Specific [place] Crossmatch 09/28/18 09/28/18 09/28/18 03:57 04:46 05:55 WBC RBC Hgb Hct MCV MCH MCHC RDW Plt Count Lymph % (Auto) [place] % (Auto) Lymph # [place] # Seg Neutrophils % Seg Neuts % (Manual) Lymphocytes % (Manual) Monocytes % (Manual) Seg Neutrophils # Lymphocytes # (Manual) POC ABG pCO2 POC ABG pO2 136 H Sodium Potassium Chloride 109.9 H Carbon Dioxide 21 L BUN Creatinine 0.6 L Glucose 245 H POC Glucose 270 H ALT Total Protein 5.7 L Albumin 2.8 L Ur Specific [place] Crossmatch 09/28/18 09/28/18 09/28/18 11:51 15:11 17:46 WBC RBC Hgb Hct MCV MCH MCHC RDW Plt Count Lymph % (Auto) [place] % (Auto) Lymph # [place] # Seg Neutrophils % Seg Neuts % (Manual) Lymphocytes % (Manual) Monocytes % (Manual) Seg Neutrophils # Lymphocytes # (Manual) POC ABG pCO2 32.6 L POC ABG pO2 116 H Sodium Potassium Chloride Carbon Dioxide BUN Creatinine Glucose POC Glucose 335 H 261 H ALT Total Protein Albumin Ur Specific [place] Crossmatch 09/28/18 09/28/18 09/29/18 18:04 23:23 04:00 WBC 11.4 H RBC 2.62 L Hgb 8.7 L Hct 25.4 L MCV MCH 33 H MCHC RDW Plt Count Lymph % (Auto) 7.8 L [place] % (Auto) 12.4 H Lymph # 0.9 L [place] # 1.4 H Seg Neutrophils % 79.7 H Seg Neuts % (Manual) Lymphocytes % (Manual) Monocytes % (Manual) Seg Neutrophils # 9.1 H Lymphocytes # (Manual) POC ABG pCO2 POC ABG pO2 123 H Sodium Potassium Chloride Carbon Dioxide BUN Creatinine Glucose POC Glucose 209 H ALT Total Protein Albumin Ur Specific [place] Crossmatch 09/29/18 09/29/18 09/29/18 04:00 05:18 11:49 WBC RBC Hgb Hct MCV MCH MCHC RDW Plt Count Lymph % (Auto) [place] % (Auto) Lymph # [place] # Seg Neutrophils % Seg Neuts % (Manual) Lymphocytes % (Manual) Monocytes % (Manual) Seg Neutrophils # Lymphocytes # (Manual) POC ABG pCO2 POC ABG pO2 Sodium Potassium Chloride 109.7 H Carbon Dioxide BUN Creatinine Glucose 176 H POC Glucose 210 H 255 H ALT 6 L Total Protein 5.5 L Albumin 2.7 L Ur Specific [place] Crossmatch 09/29/18 09/29/18 09/30/18 18:14 23:38 05:00 WBC RBC Hgb Hct MCV MCH MCHC RDW Plt Count Lymph % (Auto) [place] % (Auto) Lymph # [place] # Seg Neutrophils % Seg Neuts % (Manual) Lymphocytes % (Manual) Monocytes % (Manual) Seg Neutrophils # Lymphocytes # (Manual) POC ABG pCO2 POC ABG pO2 Sodium Potassium Chloride Carbon Dioxide 20 L BUN 30 H Creatinine Glucose 307 H POC Glucose 410 H 280 H ALT Total Protein 5.7 L Albumin 2.5 L Ur Specific [place] Crossmatch 09/30/18 09/30/18 09/30/18 05:36 06:41 11:34 WBC RBC 2.72 L Hgb 8.9 L Hct 27.1 L MCV 100 H MCH 33 H MCHC RDW 15.3 H Plt Count Lymph % (Auto) [place] % (Auto) Lymph # [place] # Seg Neutrophils % Seg Neuts % (Manual) 80.0 H Lymphocytes % (Manual) 13.0 L Monocytes % (Manual) Seg Neutrophils # Lymphocytes # (Manual) 1.1 L POC ABG pCO2 POC ABG pO2 Sodium Potassium Chloride Carbon Dioxide BUN Creatinine Glucose POC Glucose 302 H 318 H ALT Total Protein Albumin Ur Specific [place] Crossmatch 09/30/18 09/30/18 10/01/18 17:50 23:53 03:16 WBC RBC 2.66 L Hgb 8.7 L Hct 25.9 L MCV MCH 33 H MCHC RDW Plt Count Lymph % (Auto) 10.2 L [place] % (Auto) 14.0 H Lymph # 0.9 L [place] # 1.2 H Seg Neutrophils % 75.4 H Seg Neuts % (Manual) Lymphocytes % (Manual) Monocytes % (Manual) Seg Neutrophils # Lymphocytes # (Manual) POC ABG pCO2 POC ABG pO2 Sodium Potassium Chloride Carbon Dioxide BUN Creatinine Glucose POC Glucose 244 H 236 H ALT Total Protein Albumin Ur Specific [place] Crossmatch 10/01/18 10/01/18 10/01/18 03:16 05:19 12:33 WBC RBC Hgb Hct MCV MCH MCHC RDW Plt Count Lymph % (Auto) [place] % (Auto) Lymph # [place] # Seg Neutrophils % Seg Neuts % (Manual) Lymphocytes % (Manual) Monocytes % (Manual) Seg Neutrophils # Lymphocytes # (Manual) POC ABG pCO2 POC ABG pO2 Sodium Potassium Chloride 111.4 H Carbon Dioxide BUN 31 H Creatinine Glucose 217 H POC Glucose 278 H 304 H ALT Total Protein 5.6 L Albumin 2.4 L Ur Specific [place] Crossmatch 10/01/18 10/01/18 10/02/18 18:18 23:12 05:13 WBC RBC Hgb Hct MCV MCH MCHC RDW Plt Count Lymph % (Auto) [place] % (Auto) Lymph # [place] # Seg Neutrophils % Seg Neuts % (Manual) Lymphocytes % (Manual) Monocytes % (Manual) Seg Neutrophils # Lymphocytes # (Manual) POC ABG pCO2 POC ABG pO2 Sodium Potassium Chloride Carbon Dioxide BUN Creatinine Glucose POC Glucose 212 H 212 H 207 H ALT Total Protein Albumin Ur Specific [place] Crossmatch 10/02/18 10/02/18 10/02/18 11:37 16:17 16:17 WBC RBC 2.35 L Hgb 7.6 L Hct 23.1 L MCV 98 H MCH MCHC RDW 15.4 H Plt Count Lymph % (Auto) [place] % (Auto) Lymph # [place] # Seg Neutrophils % Seg Neuts % (Manual) 75.0 H Lymphocytes % (Manual) Monocytes % (Manual) 10.0 H Seg Neutrophils # Lymphocytes # (Manual) 0.9 L POC ABG pCO2 POC ABG pO2 Sodium Potassium Chloride 111.3 H Carbon Dioxide BUN 31 H Creatinine 0.6 L Glucose 201 H POC Glucose 227 H ALT Total Protein 5.2 L Albumin 2.4 L Ur Specific [place] Crossmatch 10/02/18 16:52 WBC RBC Hgb Hct MCV MCH MCHC RDW Plt Count Lymph % (Auto) [place] % (Auto) Lymph # [place] # Seg Neutrophils % Seg Neuts % (Manual) Lymphocytes % (Manual) Monocytes % (Manual) Seg Neutrophils # Lymphocytes # (Manual) POC ABG pCO2 POC ABG pO2 Sodium Potassium Chloride Carbon Dioxide BUN Creatinine Glucose POC Glucose 222 H ALT Total Protein Albumin Ur Specific [place] Crossmatch Chest x-ray: image reviewed (No acute infiltrates) Allied health notes reviewed: RT
[2018-10-02] MEDS: ARICEPT PO SCH (21:17)
[2018-10-03] MEDS: HumuLIN R SUB-Q SCH ×4 (00:34→17:31)
[2018-10-03] MEDS: APRESOLINE IV PRN (01:48)
[2018-10-03] MEDS: DUONEB *Not for PRN Use IH SCH ×3 (08:00→20:46)
--- NOTE | 2018-10-03 08:03 | Progress Note ---
Assessment and Plan Acute hypoxemic respiratory failure . Acute gastrointestinal bleed. Acute encephalopathy, metabolic. Acute/Subacute CVA History of coronary artery disease. History of gastroesophageal reflux disease. History of diabetes. Hypertension. History of a prior cerebrovascular accident. Arthritis. Dementia - continue bronchodilators with pulmonary hygiene per RT -Nocturnal BIPAP and prn - continue enteral nutrition as tolerated - continue supplemental oxygen as needed to keep O2 sat's > 90% - continue accuchecks with glycemic control per SSI for target blood glucose <180mg/dL - Prevention of delirium, maintenance of sleep-wake cycle - VTE prophylaxis-SCD - GI consult for PEG tube placement , remains at high risk for aspiration, sub- optimal nutrition as her tube feedings are held every night while she is on BIPAP Discussed with primary admitting and he states he will have discussions with the family re PEG placement. -PT/OT, mobility -Mobility for pressure ulcer prevention Secondary stroke prophylaxis -Therapeutic PPI CONDITION: CRITICAL PROGNOSIS: GUARDED CODE STATUS: FULL CODE The high probability of a clinically significant, sudden or life-threatening deterioration of the [respiratory and neurologic] system(s) required my full and direct attention, intervention and personal management. Subjective Date of service: 10/03/18 Principal diagnosis: Ac hypoxemic resp failure; Acute CVA; Ac GI bleed; Ac encephalopathy; DM II Interval history: Patient is seen today for: Acute hypoxemic respiratory failure; Acute CVA; Acute gastrointestinal bleed; Acute encephalopathy; CAD; GERD; DM II; HTN; Arthritis; Dementia. Seen and examined at bedside; 24hour events reviewed; nursing and respiratory care staff consulted; no adverse overnight events reported to me; following simple commands; No N/V/F/C; CT brain revealed acute on subacute CVA ; no seizures; no fevers, no vomiting, tolerating tube feeding. Vitals, labs,medications, chart reviewed. Mental status changes persist, on going need for supportive BIPAP at night Objective Vital Signs - 12hr 10/02/18 10/02/18 10/02/18 20:18 20:22 20:30 Temperature Pulse Rate 79 Pulse Rate [ 78 Anterior Bilateral] Pulse Rate [ From Monitor] Respiratory 24 Rate Respiratory 23 Rate [Anterior Bilateral] Blood Pressure 147/47 O2 Sat by Pulse 100 100 Oximetry 10/02/18 10/02/18 10/02/18 20:45 21:00 21:17 Temperature Pulse Rate 80 79 82 Pulse Rate [ Anterior Bilateral] Pulse Rate [ From Monitor] Respiratory 21 20 23 Rate Respiratory Rate [Anterior Bilateral] Blood Pressure 147/47 137/43 147/47 O2 Sat by Pulse 100 100 100 Oximetry 10/02/18 10/02/18 10/02/18 21:31 22:01 22:30 Temperature Pulse Rate 80 78 80 Pulse Rate [ Anterior Bilateral] Pulse Rate [ From Monitor] Respiratory 22 20 19 Rate Respiratory Rate [Anterior Bilateral] Blood Pressure 144/56 160/62 162/60 O2 Sat by Pulse 100 100 100 Oximetry 10/02/18 10/02/18 10/02/18 22:52 23:00 23:15 Temperature 99.2 F Pulse Rate 78 82 Pulse Rate [ Anterior Bilateral] Pulse Rate [ From Monitor] Respiratory 20 Rate Respiratory Rate [Anterior Bilateral] Blood Pressure 162/60 129/48 O2 Sat by Pulse 100 Oximetry 10/02/18 10/02/18 10/03/18 23:30 23:55 00:00 Temperature Pulse Rate 78 79 80 Pulse Rate [ Anterior Bilateral] Pulse Rate [ 78 From Monitor] Respiratory 19 22 20 Rate Respiratory Rate [Anterior Bilateral] Blood Pressure 139/48 139/48 O2 Sat by Pulse 100 100 100 Oximetry 10/03/18 10/03/18 10/03/18 00:01 00:31 01:00 Temperature Pulse Rate 78 78 78 Pulse Rate [ Anterior Bilateral] Pulse Rate [ From Monitor] Respiratory 20 19 17 Rate Respiratory Rate [Anterior Bilateral] Blood Pressure 129/48 144/51 146/51 O2 Sat by Pulse 100 100 100 Oximetry 10/03/18 10/03/18 10/03/18 01:30 01:48 02:01 Temperature Pulse Rate 79 78 81 Pulse Rate [ Anterior Bilateral] Pulse Rate [ From Monitor] Respiratory 19 23 Rate Respiratory Rate [Anterior Bilateral] Blood Pressure 174/62 177/57 153/45 O2 Sat by Pulse 100 100 Oximetry 10/03/18 10/03/18 10/03/18 02:31 03:01 03:31 Temperature Pulse Rate 82 82 87 Pulse Rate [ Anterior Bilateral] Pulse Rate [ From Monitor] Respiratory 29 H 29 H 17 Rate Respiratory Rate [Anterior Bilateral] Blood Pressure 133/53 136/55 147/57 O2 Sat by Pulse 100 100 100 Oximetry 10/03/18 10/03/18 10/03/18 03:52 03:55 04:00 Temperature 99.4 F Pulse Rate 83 88 Pulse Rate [ Anterior Bilateral] Pulse Rate [ 88 From Monitor] Respiratory 23 29 H Rate Respiratory Rate [Anterior Bilateral] Blood Pressure 144/64 154/62 O2 Sat by Pulse 100 100 Oximetry Constitutional: no acute distress, other (elderly looking AAF, normocephalic and atraumatic with mildly increased resp effort on BIPAP) Eyes: non-icteric ENT: oropharynx moist Neck: supple, no lymphadenopathy, no JVD Effort: mildly labored Ascultation: Bilateral: diminished breath sounds, wheezes, rhonchi, other (upper airway transmitted sounds) Percussion: Bilateral: not dull Cardiovascular: regular rate and rhythm, other (S1,S2) Gastrointestinal: normoactive bowel sounds, soft, non-tender, non-distended Integumentary: normal Extremities: no cyanosis, no edema, pulses normal, no ischemia or petechiae Neurologic: pupils equal and round, other (Left hemiparesis, will squeeze with right hand intermittently) Psychiatric: other (unable to assess) CBC and BMP: 10/02/18 16:17 10/02/18 16:17 ABG, PT/INR, D-dimer: ABG POC ABG pH 7.364 (7.35-7.45) 09/28/18 18:04 POC ABG pCO2 38.2 (35-45) 09/28/18 18:04 POC ABG pO2 123 (80-105) H 09/28/18 18:04 POC ABG HCO3 21.8 (22-26 mml/L) 09/28/18 18:04 POC ABG Total CO2 23 (23-27mmol/L) 09/28/18 18:04 POC ABG O2 Sat 99 09/28/18 18:04 PT/INR, D-dimer PT 13.3 Sec. (12.2-14.9) 10/02/18 16:17 INR 1.04 (0.87-1.13) 10/02/18 16:17 Abnormal lab findings: Abnormal Labs 09/19/18 09/19/18 09/19/18 15:11 15:11 16:01 WBC 3.7 L RBC 2.85 L Hgb 9.6 L Hct 28.0 L MCV 99 H MCH 34 H MCHC RDW 12.7 L Plt Count Lymph % (Auto) 41.9 H [place] % (Auto) 14.9 H Lymph # [place] # Seg Neutrophils % Seg Neuts % (Manual) Lymphocytes % (Manual) Monocytes % (Manual) Seg Neutrophils # 1.5 L Lymphocytes # (Manual) POC ABG pCO2 POC ABG pO2 Sodium Potassium Chloride 107.9 H Carbon Dioxide BUN 23 H Creatinine Glucose 191 H POC Glucose ALT Total Protein Albumin Ur Specific [place] 1.031 H Crossmatch 09/19/18 09/19/18 09/20/18 21:01 21:10 00:22 WBC RBC 2.39 L Hgb 8.1 L Hct 23.6 L MCV 99 H MCH 34 H MCHC RDW 12.5 L Plt Count Lymph % (Auto) [place] % (Auto) 9.9 H Lymph # [place] # Seg Neutrophils % Seg Neuts % (Manual) Lymphocytes % (Manual) Monocytes % (Manual) Seg Neutrophils # Lymphocytes # (Manual) POC ABG pCO2 POC ABG pO2 Sodium Potassium Chloride Carbon Dioxide BUN Creatinine Glucose POC Glucose 229 H ALT Total Protein Albumin Ur Specific [place] Crossmatch See Detail 09/20/18 09/20/18 09/20/18 06:11 06:15 08:17 WBC RBC 2.27 L Hgb 7.6 L Hct 22.4 L MCV 99 H MCH 34 H MCHC RDW 12.7 L Plt Count Lymph % (Auto) 35.1 H [place] % (Auto) 11.4 H Lymph # [place] # Seg Neutrophils % Seg Neuts % (Manual) Lymphocytes % (Manual) Monocytes % (Manual) Seg Neutrophils # Lymphocytes # (Manual) POC ABG pCO2 POC ABG pO2 Sodium Potassium Chloride Carbon Dioxide BUN Creatinine Glucose POC Glucose 246 H 253 H ALT Total Protein Albumin Ur Specific [place] Crossmatch 09/20/18 09/20/18 09/20/18 11:52 17:17 21:10 WBC RBC Hgb Hct MCV MCH MCHC RDW Plt Count Lymph % (Auto) [place] % (Auto) Lymph # [place] # Seg Neutrophils % Seg Neuts % (Manual) Lymphocytes % (Manual) Monocytes % (Manual) Seg Neutrophils # Lymphocytes # (Manual) POC ABG pCO2 POC ABG pO2 Sodium Potassium Chloride Carbon Dioxide BUN Creatinine Glucose POC Glucose 278 H 241 H 245 H ALT Total Protein Albumin Ur Specific [place] Crossmatch 09/21/18 09/21/18 09/21/18 05:15 07:43 16:35 WBC RBC 3.35 L Hgb Hct MCV MCH 33 H MCHC 35 H RDW Plt Count 134 L Lymph % (Auto) [place] % (Auto) 12.4 H Lymph # [place] # 1.0 H Seg Neutrophils % Seg Neuts % (Manual) Lymphocytes % (Manual) Monocytes % (Manual) Seg Neutrophils # Lymphocytes # (Manual) POC ABG pCO2 POC ABG pO2 Sodium Potassium Chloride Carbon Dioxide BUN Creatinine Glucose POC Glucose 278 H 237 H ALT Total Protein Albumin Ur Specific [place] Crossmatch 09/21/18 09/21/18 09/22/18 19:20 19:42 01:05 WBC RBC 2.66 L 2.43 L Hgb 8.7 L 8.0 L Hct 25.9 L D 23.4 L MCV MCH 33 H 33 H MCHC RDW Plt Count 137 L 127 L Lymph % (Auto) 12.7 L [place] % (Auto) 11.0 H Lymph # [place] # 1.1 H Seg Neutrophils % 75.8 H Seg Neuts % (Manual) Lymphocytes % (Manual) Monocytes % (Manual) Seg Neutrophils # Lymphocytes # (Manual) POC ABG pCO2 POC ABG pO2 Sodium Potassium Chloride Carbon Dioxide BUN Creatinine Glucose POC Glucose 264 H ALT Total Protein Albumin Ur Specific [place] Crossmatch 09/22/18 09/22/18 09/22/18 05:20 07:29 11:48 WBC RBC 2.43 L Hgb 8.0 L Hct 23.4 L MCV MCH 33 H MCHC RDW Plt Count 118 L Lymph % (Auto) [place] % (Auto) 14.0 H Lymph # [place] # 1.1 H Seg Neutrophils % Seg Neuts % (Manual) Lymphocytes % (Manual) Monocytes % (Manual) Seg Neutrophils # Lymphocytes # (Manual) POC ABG pCO2 POC ABG pO2 Sodium Potassium Chloride Carbon Dioxide BUN Creatinine Glucose POC Glucose 335 H 300 H ALT Total Protein Albumin Ur Specific [place] Crossmatch 09/22/18 09/22/18 09/23/18 16:55 21:04 04:52 WBC 4.4 L RBC 2.40 L Hgb 8.0 L Hct 23.4 L MCV 98 H MCH 33 H MCHC RDW Plt Count 115 L Lymph % (Auto) [place] % (Auto) 12.2 H Lymph # [place] # Seg Neutrophils % Seg Neuts % (Manual) Lymphocytes % (Manual) Monocytes % (Manual) Seg Neutrophils # Lymphocytes # (Manual) POC ABG pCO2 POC ABG pO2 Sodium Potassium Chloride Carbon Dioxide BUN Creatinine Glucose POC Glucose 340 H 285 H ALT Total Protein Albumin Ur Specific [place] Crossmatch 09/23/18 09/23/18 09/23/18 04:52 07:33 11:23 WBC RBC Hgb Hct MCV MCH MCHC RDW Plt Count Lymph % (Auto) [place] % (Auto) Lymph # [place] # Seg Neutrophils % Seg Neuts % (Manual) Lymphocytes % (Manual) Monocytes % (Manual) Seg Neutrophils # Lymphocytes # (Manual) POC ABG pCO2 POC ABG pO2 Sodium Potassium Chloride 110.6 H Carbon Dioxide BUN 19 H Creatinine Glucose 220 H POC Glucose 216 H 307 H ALT Total Protein Albumin Ur Specific [place] Crossmatch 09/23/18 09/23/18 09/24/18 16:23 20:33 06:09 WBC RBC 2.47 L Hgb 8.0 L Hct 24.8 L MCV 100 H MCH 33 H MCHC RDW Plt Count Lymph % (Auto) [place] % (Auto) 11.1 H Lymph # [place] # Seg Neutrophils % Seg Neuts % (Manual) Lymphocytes % (Manual) Monocytes % (Manual) Seg Neutrophils # Lymphocytes # (Manual) POC ABG pCO2 POC ABG pO2 Sodium Potassium Chloride Carbon Dioxide BUN Creatinine Glucose POC Glucose 361 H 261 H ALT Total Protein Albumin Ur Specific [place] Crossmatch 09/24/18 09/24/18 09/24/18 06:09 08:07 12:06 WBC RBC Hgb Hct MCV MCH MCHC RDW Plt Count Lymph % (Auto) [place] % (Auto) Lymph # [place] # Seg Neutrophils % Seg Neuts % (Manual) Lymphocytes % (Manual) Monocytes % (Manual) Seg Neutrophils # Lymphocytes # (Manual) POC ABG pCO2 POC ABG pO2 Sodium Potassium Chloride 110.8 H Carbon Dioxide BUN 18 H Creatinine Glucose 135 H POC Glucose 130 H 154 H ALT Total Protein Albumin Ur Specific [place] Crossmatch 09/24/18 09/24/18 09/25/18 16:47 20:55 06:05 WBC RBC 2.14 L Hgb 7.0 L Hct 21.1 L MCV 98 H MCH 33 H MCHC RDW Plt Count Lymph % (Auto) [place] % (Auto) 10.3 H Lymph # [place] # Seg Neutrophils % Seg Neuts % (Manual) Lymphocytes % (Manual) Monocytes % (Manual) Seg Neutrophils # Lymphocytes # (Manual) POC ABG pCO2 POC ABG pO2 Sodium Potassium Chloride Carbon Dioxide BUN Creatinine Glucose POC Glucose 190 H 233 H ALT Total Protein Albumin Ur Specific [place] Crossmatch 09/25/18 09/25/18 09/25/18 06:05 08:06 11:13 WBC RBC Hgb Hct MCV MCH MCHC RDW Plt Count Lymph % (Auto) [place] % (Auto) Lymph # [place] # Seg Neutrophils % Seg Neuts % (Manual) Lymphocytes % (Manual) Monocytes % (Manual) Seg Neutrophils # Lymphocytes # (Manual) POC ABG pCO2 POC ABG pO2 Sodium 146 H Potassium Chloride 112.6 H Carbon Dioxide BUN 20 H Creatinine Glucose 243 H POC Glucose 248 H 274 H ALT Total Protein Albumin Ur Specific [place] Crossmatch 09/25/18 09/25/18 09/25/18 14:56 15:05 22:04 WBC RBC 2.31 L Hgb 7.6 L Hct 22.5 L MCV MCH 33 H MCHC RDW Plt Count Lymph % (Auto) [place] % (Auto) Lymph # [place] # Seg Neutrophils % Seg Neuts % (Manual) Lymphocytes % (Manual) Monocytes % (Manual) Seg Neutrophils # Lymphocytes # (Manual) POC ABG pCO2 POC ABG pO2 Sodium Potassium Chloride Carbon Dioxide BUN Creatinine Glucose POC Glucose 333 H ALT Total Protein Albumin Ur Specific [place] Crossmatch See Detail 09/26/18 09/26/18 09/26/18 03:35 05:15 05:15 WBC 12.6 H RBC 3.21 L Hgb Hct MCV MCH MCHC RDW Plt Count Lymph % (Auto) 10.2 L [place] % (Auto) 11.7 H Lymph # [place] # 1.5 H Seg Neutrophils % 78.0 H Seg Neuts % (Manual) Lymphocytes % (Manual) Monocytes % (Manual) Seg Neutrophils # 9.9 H Lymphocytes # (Manual) POC ABG pCO2 33.2 L POC ABG pO2 249 H Sodium Potassium Chloride 109.2 H Carbon Dioxide BUN 20 H Creatinine Glucose 234 H POC Glucose ALT Total Protein 5.7 L Albumin 3.2 L Ur Specific [place] Crossmatch 09/26/18 09/26/18 09/26/18 11:55 17:52 23:32 WBC RBC Hgb Hct MCV MCH MCHC RDW Plt Count Lymph % (Auto) [place] % (Auto) Lymph # [place] # Seg Neutrophils % Seg Neuts % (Manual) Lymphocytes % (Manual) Monocytes % (Manual) Seg Neutrophils # Lymphocytes # (Manual) POC ABG pCO2 POC ABG pO2 Sodium Potassium Chloride Carbon Dioxide BUN Creatinine Glucose POC Glucose 288 H 292 H 266 H ALT Total Protein Albumin Ur Specific [place] Crossmatch 09/27/18 09/27/18 09/27/18 03:57 04:18 05:01 WBC RBC 3.03 L Hgb 10.0 L Hct 29.6 L MCV 98 H MCH 33 H MCHC RDW Plt Count 138 L Lymph % (Auto) 10.8 L [place] % (Auto) 14.6 H Lymph # 1.1 L [place] # 1.5 H Seg Neutrophils % 74.2 H Seg Neuts % (Manual) Lymphocytes % (Manual) Monocytes % (Manual) Seg Neutrophils # Lymphocytes # (Manual) POC ABG pCO2 POC ABG pO2 Sodium Potassium 3.5 L Chloride 111.3 H Carbon Dioxide BUN Creatinine Glucose 220 H POC Glucose 250 H ALT 6 L Total Protein 5.4 L Albumin 2.9 L Ur Specific [place] Crossmatch 09/27/18 09/27/18 09/27/18 05:21 11:59 14:29 WBC RBC Hgb Hct MCV MCH MCHC RDW Plt Count Lymph % (Auto) [place] % (Auto) Lymph # [place] # Seg Neutrophils % Seg Neuts % (Manual) Lymphocytes % (Manual) Monocytes % (Manual) Seg Neutrophils # Lymphocytes # (Manual) POC ABG pCO2 31.1 L POC ABG pO2 148 H 118 H Sodium Potassium Chloride Carbon Dioxide BUN Creatinine Glucose POC Glucose 240 H ALT Total Protein Albumin Ur Specific [place] Crossmatch 09/27/18 09/27/18 09/28/18 18:16 23:26 03:57 WBC 12.7 H RBC 3.05 L Hgb 10.0 L Hct 30.0 L MCV 98 H MCH 33 H MCHC RDW 15.5 H Plt Count Lymph % (Auto) 9.5 L [place] % (Auto) 12.3 H Lymph # [place] # 1.6 H Seg Neutrophils % 77.6 H Seg Neuts % (Manual) Lymphocytes % (Manual) Monocytes % (Manual) Seg Neutrophils # 9.9 H Lymphocytes # (Manual) POC ABG pCO2 POC ABG pO2 Sodium Potassium Chloride Carbon Dioxide BUN Creatinine Glucose POC Glucose 266 H 242 H ALT Total Protein Albumin Ur Specific [place] Crossmatch 09/28/18 09/28/18 09/28/18 03:57 04:46 05:55 WBC RBC Hgb Hct MCV MCH MCHC RDW Plt Count Lymph % (Auto) [place] % (Auto) Lymph # [place] # Seg Neutrophils % Seg Neuts % (Manual) Lymphocytes % (Manual) Monocytes % (Manual) Seg Neutrophils # Lymphocytes # (Manual) POC ABG pCO2 POC ABG pO2 136 H Sodium Potassium Chloride 109.9 H Carbon Dioxide 21 L BUN Creatinine 0.6 L Glucose 245 H POC Glucose 270 H ALT Total Protein 5.7 L Albumin 2.8 L Ur Specific [place] Crossmatch 09/28/18 09/28/18 09/28/18 11:51 15:11 17:46 WBC RBC Hgb Hct MCV MCH MCHC RDW Plt Count Lymph % (Auto) [place] % (Auto) Lymph # [place] # Seg Neutrophils % Seg Neuts % (Manual) Lymphocytes % (Manual) Monocytes % (Manual) Seg Neutrophils # Lymphocytes # (Manual) POC ABG pCO2 32.6 L POC ABG pO2 116 H Sodium Potassium Chloride Carbon Dioxide BUN Creatinine Glucose POC Glucose 335 H 261 H ALT Total Protein Albumin Ur Specific [place] Crossmatch 09/28/18 09/28/18 09/29/18 18:04 23:23 04:00 WBC 11.4 H RBC 2.62 L Hgb 8.7 L Hct 25.4 L MCV MCH 33 H MCHC RDW Plt Count Lymph % (Auto) 7.8 L [place] % (Auto) 12.4 H Lymph # 0.9 L [place] # 1.4 H Seg Neutrophils % 79.7 H Seg Neuts % (Manual) Lymphocytes % (Manual) Monocytes % (Manual) Seg Neutrophils # 9.1 H Lymphocytes # (Manual) POC ABG pCO2 POC ABG pO2 123 H Sodium Potassium Chloride Carbon Dioxide BUN Creatinine Glucose POC Glucose 209 H ALT Total Protein Albumin Ur Specific [place] Crossmatch 09/29/18 09/29/18 09/29/18 04:00 05:18 11:49 WBC RBC Hgb Hct MCV MCH MCHC RDW Plt Count Lymph % (Auto) [place] % (Auto) Lymph # [place] # Seg Neutrophils % Seg Neuts % (Manual) Lymphocytes % (Manual) Monocytes % (Manual) Seg Neutrophils # Lymphocytes # (Manual) POC ABG pCO2 POC ABG pO2 Sodium Potassium Chloride 109.7 H Carbon Dioxide BUN Creatinine Glucose 176 H POC Glucose 210 H 255 H ALT 6 L Total Protein 5.5 L Albumin 2.7 L Ur Specific [place] Crossmatch 09/29/18 09/29/18 09/30/18 18:14 23:38 05:00 WBC RBC Hgb Hct MCV MCH MCHC RDW Plt Count Lymph % (Auto) [place] % (Auto) Lymph # [place] # Seg Neutrophils % Seg Neuts % (Manual) Lymphocytes % (Manual) Monocytes % (Manual) Seg Neutrophils # Lymphocytes # (Manual) POC ABG pCO2 POC ABG pO2 Sodium Potassium Chloride Carbon Dioxide 20 L BUN 30 H Creatinine Glucose 307 H POC Glucose 410 H 280 H ALT Total Protein 5.7 L Albumin 2.5 L Ur Specific [place] Crossmatch 09/30/18 09/30/18 09/30/18 05:36 06:41 11:34 WBC RBC 2.72 L Hgb 8.9 L Hct 27.1 L MCV 100 H MCH 33 H MCHC RDW 15.3 H Plt Count Lymph % (Auto) [place] % (Auto) Lymph # [place] # Seg Neutrophils % Seg Neuts % (Manual) 80.0 H Lymphocytes % (Manual) 13.0 L Monocytes % (Manual) Seg Neutrophils # Lymphocytes # (Manual) 1.1 L POC ABG pCO2 POC ABG pO2 Sodium Potassium Chloride Carbon Dioxide BUN Creatinine Glucose POC Glucose 302 H 318 H ALT Total Protein Albumin Ur Specific [place] Crossmatch 09/30/18 09/30/18 10/01/18 17:50 23:53 03:16 WBC RBC 2.66 L Hgb 8.7 L Hct 25.9 L MCV MCH 33 H MCHC RDW Plt Count Lymph % (Auto) 10.2 L [place] % (Auto) 14.0 H Lymph # 0.9 L [place] # 1.2 H Seg Neutrophils % 75.4 H Seg Neuts % (Manual) Lymphocytes % (Manual) Monocytes % (Manual) Seg Neutrophils # Lymphocytes # (Manual) POC ABG pCO2 POC ABG pO2 Sodium Potassium Chloride Carbon Dioxide BUN Creatinine Glucose POC Glucose 244 H 236 H ALT Total Protein Albumin Ur Specific [place] Crossmatch 10/01/18 10/01/18 10/01/18 03:16 05:19 12:33 WBC RBC Hgb Hct MCV MCH MCHC RDW Plt Count Lymph % (Auto) [place] % (Auto) Lymph # [place] # Seg Neutrophils % Seg Neuts % (Manual) Lymphocytes % (Manual) Monocytes % (Manual) Seg Neutrophils # Lymphocytes # (Manual) POC ABG pCO2 POC ABG pO2 Sodium Potassium Chloride 111.4 H Carbon Dioxide BUN 31 H Creatinine Glucose 217 H POC Glucose 278 H 304 H ALT Total Protein 5.6 L Albumin 2.4 L Ur Specific [place] Crossmatch 10/01/18 10/01/18 10/02/18 18:18 23:12 05:13 WBC RBC Hgb Hct MCV MCH MCHC RDW Plt Count Lymph % (Auto) [place] % (Auto) Lymph # [place] # Seg Neutrophils % Seg Neuts % (Manual) Lymphocytes % (Manual) Monocytes % (Manual) Seg Neutrophils # Lymphocytes # (Manual) POC ABG pCO2 POC ABG pO2 Sodium Potassium Chloride Carbon Dioxide BUN Creatinine Glucose POC Glucose 212 H 212 H 207 H ALT Total Protein Albumin Ur Specific [place] Crossmatch 10/02/18 10/02/18 10/02/18 11:37 16:17 16:17 WBC RBC 2.35 L Hgb 7.6 L Hct 23.1 L MCV 98 H MCH MCHC RDW 15.4 H Plt Count Lymph % (Auto) [place] % (Auto) Lymph # [place] # Seg Neutrophils % Seg Neuts % (Manual) 75.0 H Lymphocytes % (Manual) Monocytes % (Manual) 10.0 H Seg Neutrophils # Lymphocytes # (Manual) 0.9 L POC ABG pCO2 POC ABG pO2 Sodium Potassium Chloride 111.3 H Carbon Dioxide BUN 31 H Creatinine 0.6 L Glucose 201 H POC Glucose 227 H ALT Total Protein 5.2 L Albumin 2.4 L Ur Specific [place] Crossmatch 10/02/18 10/02/18 10/03/18 16:52 23:58 05:19 WBC RBC Hgb Hct MCV MCH MCHC RDW Plt Count Lymph % (Auto) [place] % (Auto) Lymph # [place] # Seg Neutrophils % Seg Neuts % (Manual) Lymphocytes % (Manual) Monocytes % (Manual) Seg Neutrophils # Lymphocytes # (Manual) POC ABG pCO2 POC ABG pO2 Sodium Potassium Chloride Carbon Dioxide BUN Creatinine Glucose POC Glucose 222 H 134 H 160 H ALT Total Protein Albumin Ur Specific [place] Crossmatch Chest x-ray: image reviewed (No acute pulmonary infiltrate, possibly right lower lobe early infiltrate) Allied health notes reviewed: RT
[2018-10-03] MEDS: PREVACID SOLUTAB FEEDTUBE SCH ×2 (09:44→22:23)
[2018-10-03] MEDS: LANTUS SUB-Q SCH (09:47)
[2018-10-03] MEDS: TENORMIN PO SCH (10:14)
--- NOTE | 2018-10-03 10:55 | Gastroenterology Progress Note ---
Assessment and Plan Reviewed RBA, plan for PEG tomorrow, please hold tube feeds at midnight. - Patient Problems (1) CVA (cerebral vascular accident) Current Visit: Yes Status: Acute Qualifiers: Precerebral and cerebral artery: anterior cerebral artery (2) Dementia Current Visit: Yes Status: Chronic Qualifiers: Alzheimer's disease onset: unspecified onset Dementia behavioral disturbance: without behavioral disturbance Subjective Date of service: 10/03/18 Principal diagnosis: Ac hypoxemic resp failure; Acute CVA; Ac GI bleed; Ac encephalopathy; DM II Interval history: consulted for PEG spoke with Sarath, Objective - Constitutional Vitals: Temp Pulse Resp BP Pulse Ox 98.1 F 85 19 122/43 100 10/03/18 08:00 10/03/18 10:14 10/03/18 10:00 10/03/18 10:14 10/03/18 10:00 General appearance: no acute distress - Gastrointestinal General gastrointestinal: Present: soft, non-tender - Labs CBC & Chem 7: 10/02/18 16:17 10/02/18 16:17 Labs: Laboratory Results - last 24 hr 10/02/18 10/02/18 10/02/18 11:37 16:17 16:17 WBC 6.3 RBC 2.35 L Hgb 7.6 L Hct 23.1 L MCV 98 H MCH 32 MCHC 33 RDW 15.4 H Plt Count 222 [place] % (Auto) Merchandise Director Add Manual Diff Complete Total Counted 100 Seg Neuts % (Manual) 75.0 H Band Neutrophils % 0 Lymphocytes % (Manual) 15.0 Reactive Lymphs % (Man) 0 Monocytes % (Manual) 10.0 H Eosinophils % (Manual) 0 Basophils % (Manual) 0 Metamyelocytes % 0 Myelocytes % 0 Promyelocytes % 0 Blast Cells % 0 Nucleated RBC % Not Reportable Seg Neutrophils # Man 4.7 Band Neutrophils # 0.0 Lymphocytes # (Manual) 0.9 L Abs React Lymphs (Man) 0.0 Monocytes # (Manual) 0.6 Eosinophils # (Manual) 0.0 Basophils # (Manual) 0.0 Metamyelocytes # 0.0 Myelocytes # 0.0 Promyelocytes # 0.0 Blast Cells # 0.0 WBC Morphology Not Reportable Hypersegmented Neuts Not Reportable Hyposegmented Neuts Not Reportable Hypogranular Neuts Not Reportable Smudge Cells Not Reportable Toxic Granulation Not Reportable Toxic Vacuolation Not Reportable Dohle Bodies Not Reportable Pelger-Huet Anomaly Not Reportable Pao Rods Not Reportable Platelet Estimate Appears normal Clumped Platelets Not Reportable Plt Clumps, EDTA Not Reportable Large Platelets Not Reportable Giant Platelets Not Reportable Platelet Satelliting Not Reportable Plt Morphology Comment Not Reportable RBC Morphology Not Reportable Dimorphic RBCs Not Reportable Polychromasia Not Reportable Hypochromasia 1+ Poikilocytosis Not Reportable Anisocytosis 2+ Microcytosis Not Reportable Macrocytosis Not Reportable Spherocytes Not Reportable Pappenheimer Bodies Not Reportable Sickle Cells Not Reportable Target Cells Not Reportable Tear Drop Cells Not Reportable Ovalocytes Few Helmet Cells Not Reportable Hernandez-[place] Bodies Not Reportable [place] Rings Not Reportable Mary Cells Not Reportable Bite Cells Not Reportable Crenated Cell Not Reportable Elliptocytes Not Reportable Acanthocytes (Spur) Not Reportable Rouleaux Not Reportable Hemoglobin C Crystals Not Reportable Schistocytes Not Reportable Malaria parasites Not Reportable Ian Bodies Not Reportable Hem Pathologist Commnt No PT INR APTT Sodium 143 Potassium 4.3 Chloride 111.3 H Carbon Dioxide 24 Anion Gap 12 BUN 31 H Creatinine 0.6 L Estimated GFR > 60 BUN/Creatinine Ratio 52 Glucose 201 H POC Glucose 227 H Calcium 8.5 Total Bilirubin 0.30 AST 17 ALT 10 Alkaline Phosphatase 61 Total Protein 5.2 L Albumin 2.4 L Albumin/Globulin Ratio 0.9 10/02/18 10/02/18 10/02/18 16:17 16:52 23:58 WBC RBC Hgb Hct MCV MCH MCHC RDW Plt Count [place] % (Auto) Add Manual Diff Total Counted Seg Neuts % (Manual) Band Neutrophils % Lymphocytes % (Manual) Reactive Lymphs % (Man) Monocytes % (Manual) Eosinophils % (Manual) Basophils % (Manual) Metamyelocytes % Myelocytes % Promyelocytes % Blast Cells % Nucleated RBC % Seg Neutrophils # Man Band Neutrophils # Lymphocytes # (Manual) Abs React Lymphs (Man) Monocytes # (Manual) Eosinophils # (Manual) Basophils # (Manual) Metamyelocytes # Myelocytes # Promyelocytes # Blast Cells # WBC Morphology Hypersegmented Neuts Hyposegmented Neuts Hypogranular Neuts Smudge Cells Toxic Granulation Toxic Vacuolation Dohle Bodies Pelger-Huet Anomaly Pao Rods Platelet Estimate Clumped Platelets Plt Clumps, EDTA Large Platelets Giant Platelets Platelet Satelliting Plt Morphology Comment RBC Morphology Dimorphic RBCs Polychromasia Hypochromasia Poikilocytosis Anisocytosis Microcytosis Macrocytosis Spherocytes Pappenheimer Bodies Sickle Cells Target Cells Tear Drop Cells Ovalocytes Helmet Cells Hernandez-[place] Bodies [place] Rings Mary Cells Bite Cells Crenated Cell Elliptocytes Acanthocytes (Spur) Rouleaux Hemoglobin C Crystals Schistocytes Malaria parasites Ian Bodies Hem Pathologist Commnt PT 13.3 INR 1.04 APTT 29.3 Sodium Potassium Chloride Carbon Dioxide Anion Gap BUN Creatinine Estimated GFR BUN/Creatinine Ratio Glucose POC Glucose 222 H 134 H Calcium Total Bilirubin AST ALT Alkaline Phosphatase Total Protein Albumin Albumin/Globulin Ratio 10/03/18 05:19 WBC RBC Hgb Hct MCV MCH MCHC RDW Plt Count [place] % (Auto) Add Manual Diff Total Counted Seg Neuts % (Manual) Band Neutrophils % Lymphocytes % (Manual) Reactive Lymphs % (Man) Monocytes % (Manual) Eosinophils % (Manual) Basophils % (Manual) Metamyelocytes % Myelocytes % Promyelocytes % Blast Cells % Nucleated RBC % Seg Neutrophils # Man Band Neutrophils # Lymphocytes # (Manual) Abs React Lymphs (Man) Monocytes # (Manual) Eosinophils # (Manual) Basophils # (Manual) Metamyelocytes # Myelocytes # Promyelocytes # Blast Cells # WBC Morphology Hypersegmented Neuts Hyposegmented Neuts Hypogranular Neuts Smudge Cells Toxic Granulation Toxic Vacuolation Dohle Bodies Pelger-Huet Anomaly Pao Rods Platelet Estimate Clumped Platelets Plt Clumps, EDTA Large Platelets Giant Platelets Platelet Satelliting Plt Morphology Comment RBC Morphology Dimorphic RBCs Polychromasia Hypochromasia Poikilocytosis Anisocytosis Microcytosis Macrocytosis Spherocytes Pappenheimer Bodies Sickle Cells Target Cells Tear Drop Cells Ovalocytes Helmet Cells Hernandez-[place] Bodies [place] Rings [place] Cells Bite Cells Crenated Cell Elliptocytes Acanthocytes (Spur) Rouleaux Hemoglobin C Crystals Schistocytes Malaria parasites Ian Bodies Hem Pathologist Commnt PT INR APTT Sodium Potassium Chloride Carbon Dioxide Anion Gap BUN Creatinine Estimated GFR BUN/Creatinine Ratio Glucose POC Glucose 160 H Calcium Total Bilirubin AST ALT Alkaline Phosphatase Total Protein Albumin Albumin/Globulin Ratio
--- NOTE | 2018-10-03 13:29 | XRay Report ---
ABDOMEN 1 VIEW(S) INDICATION / CLINICAL INFORMATION: Manipulation of dobhuff (confirmation). COMPARISON: Previous abdominal x-ray on 09/26/2018. FINDINGS: TUBES / LINES: The tip of the feeding tube projects over the proximal stomach. BOWEL GAS PATTERN/EXTRALUMINAL GAS: No significant abnormality. No pneumatosis or secondary signs of free air. ADDITIONAL FINDINGS: No significant additional findings. IMPRESSION: 1. Feeding tube tip projects over the proximal stomach. Signer Name: Albert Maldonado MD Signed: 10/03/2018 1:24 PM Workstation Name: [id number]
[2018-10-03] MEDS: ISORDIL TITRADOSE PO SCH ×2 (14:35→22:22)
--- NOTE | 2018-10-03 19:59 | Progress Note ---
Assessment and Plan - Patient Problems (1) LGI bleed Current Visit: Yes Plan to address problem: Follow GI , monitor labs. notes reviewed from GI. this is severe diverticular dz., not amendable to surgery. See notes above. Had some evidence of loss. same as above. (2) Dementia Current Visit: Yes Status: Chronic Qualifiers: Alzheimer's disease onset: unspecified onset Dementia behavioral disturbance: without behavioral disturbance Plan to address problem: supportive care. (3) Abdominal pain Current Visit: Yes Status: Acute Plan to address problem: Await scope. resolved. (4) Anemia Current Visit: Yes Status: Acute Plan to address problem: Monitor labs PRN. Transfusion, as necessary. same as above. Stable, post bld transfusion. 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 Awaiting neurology eval. Spoken to neurology. Subjective Date of service: 10/03/18 Principal diagnosis: Ac hypoxemic resp failure; Acute CVA; Ac GI bleed; Ac encephalopathy; DM II Interval history: Patient seen/examined, resting in bed, labs/ notes/consults reviewed. Patient scheduled for a scope tomorrow.I have given some transfusion, and will do H/h q6hrs. Patient seen/examined, resting in bed, labs/ operative notes reviewed.Will restart on IVF, and restart diet tomorrow. Patient seen/examined, resting in bed, notes/labs reviewed. i had spoken to her daughter yesterday, with full update. She is not keen to any aggressive measures, ophelia surgery. She is contemplating AND/vs hospice.She was suppose to think about it, and let us know.Will continue with supportive care for now. Patient seen/examined, resting in bed, labs reviewed. No active bleeding. GI/Surgery notes reviewed also. Patient seen/examined, resting in bed, notes/labs reviewed.No report of any active bleeding at this time. If this remains this way, will discharge back to the [facility] 2days ,or so. patient seen/examined, resting in bed, Had a code blue called earlier, and transfered to the unit, and intubated. Ct with contrast showed sub acute CELIO distribution stroke, and acute non hemorrhagic CVA. will consult neurology doorperson.Hgb dropped by less than a gram, from yesterday, obviously still bleeding. Once feasible, will do red cell tagged scan., and possibly IR intervention, with Embolization of the offending vessel, depending on how far the family wants to go.For now, will continue with replacement blood transfusion. Patient seen/examined, resting in bed, labs reviewed, and stable, post transfusion of 2units PRBC. Awaiting neurology eval/REC. patient seen/examined, resting in bed, still on the vent, but awoken easily.I have reviewed the Neurologist notes. patient s record reviewed, I have spoken to neurology today, about plan of care. Patient seen/examined, resting in bed, labs/records/notes reviewed.No new issues at this time. once stable, clinically, and ok with all involved, will d/c back to the NH. Patient seen/examined, resting in bed, line problems, as per nurse, mid line to be placed.labs reviewed. Patient seen, resting in bed, labs/records reviewed. If no more active bleed, will d/c back to the NH this week, once ok with GI/Neuro. patient seen, resting in bed, d/w neuro, and pulm, peg tube needed, and ordered, will speak more to the family.once peg placed, will d/c back to the NH. patient seen, resting in bed, records/notes reviewed. PEG planned for tomorrow. Will recheck H/H tomorrow. Once peg placed, and hgb stable, and no active bleed, will d/c back to the NH. Objective - Constitutional Vitals: Vital Signs - 12hr 10/03/18 10/03/18 10/03/18 08:00 08:30 08:40 Temperature 98.1 F Pulse Rate 91 H 88 88 Pulse Rate [ 96 H Anterior Bilateral] Pulse Rate [ 88 From Monitor] Respiratory 22 19 Rate Respiratory 22 Rate [Anterior Bilateral] Blood Pressure 172/55 106/37 O2 Sat by Pulse 100 100 Oximetry 10/03/18 10/03/18 10/03/18 09:00 09:30 10:00 Temperature Pulse Rate 89 87 89 Pulse Rate [ Anterior Bilateral] Pulse Rate [ From Monitor] Respiratory 21 20 19 Rate Respiratory Rate [Anterior Bilateral] Blood Pressure 98/47 129/41 122/43 O2 Sat by Pulse 100 100 100 Oximetry 07/22/19 07/22/19 07/22/19 10:14 10:31 11:01 Temperature Pulse Rate 85 88 89 Pulse Rate [ Anterior Bilateral] Pulse Rate [ From Monitor] Respiratory 20 20 Rate Respiratory Rate [Anterior Bilateral] Blood Pressure 122/43 118/46 118/46 O2 Sat by Pulse 100 100 Oximetry 10/03/18 10/03/18 10/03/18 11:31 12:00 12:01 Temperature 99.2 F Pulse Rate 84 89 91 H Pulse Rate [ Anterior Bilateral] Pulse Rate [ 87 From Monitor] Respiratory 20 19 21 Rate Respiratory Rate [Anterior Bilateral] Blood Pressure 102/31 143/52 O2 Sat by Pulse 100 100 100 Oximetry 10/03/18 10/03/18 10/03/18 12:30 13:00 13:31 Temperature Pulse Rate 92 H 88 86 Pulse Rate [ Anterior Bilateral] Pulse Rate [ From Monitor] Respiratory 20 20 23 Rate Respiratory Rate [Anterior Bilateral] Blood Pressure 141/38 142/58 111/42 O2 Sat by Pulse 100 100 98 Oximetry 10/03/18 10/03/18 10/03/18 14:00 14:30 14:35 Temperature Pulse Rate 83 81 84 Pulse Rate [ Anterior Bilateral] Pulse Rate [ From Monitor] Respiratory 22 21 Rate Respiratory Rate [Anterior Bilateral] Blood Pressure 94/34 103/35 93/34 O2 Sat by Pulse 100 100 Oximetry 10/03/18 10/03/18 10/03/18 14:38 15:00 15:30 Temperature Pulse Rate 90 90 Pulse Rate [ 91 H Anterior Bilateral] Pulse Rate [ From Monitor] Respiratory 22 25 H Rate Respiratory 22 Rate [Anterior Bilateral] Blood Pressure 112/45 121/43 O2 Sat by Pulse 100 100 Oximetry 10/03/18 10/03/18 10/03/18 16:00 16:30 16:31 Temperature 97.9 F Pulse Rate 93 H 94 H Pulse Rate [ Anterior Bilateral] Pulse Rate [ 92 H From Monitor] Respiratory 24 23 26 H Rate Respiratory Rate [Anterior Bilateral] Blood Pressure 117/35 131/52 O2 Sat by Pulse 100 100 100 Oximetry 10/03/18 10/03/18 10/03/18 17:01 17:30 18:01 Temperature Pulse Rate 94 H 94 H 88 Pulse Rate [ Anterior Bilateral] Pulse Rate [ From Monitor] Respiratory 25 H 23 21 Rate Respiratory Rate [Anterior Bilateral] Blood Pressure 137/54 148/47 110/37 O2 Sat by Pulse 100 100 100 Oximetry 10/03/18 18:31 Temperature Pulse Rate 91 H Pulse Rate [ Anterior Bilateral] Pulse Rate [ From Monitor] Respiratory 21 Rate Respiratory Rate [Anterior Bilateral] Blood Pressure 140/50 O2 Sat by Pulse 100 Oximetry General appearance: Present: no acute distress - EENT Eyes: PERRL, EOM intact ENT: hearing intact, clear oral mucosa Ears: bilateral: normal - Neck Neck: supple, normal ROM - Respiratory Respiratory: bilateral: diminished - Breasts Breasts: deferred - Cardiovascular Rhythm: regular Heart Sounds: Present: S1 & S2. Absent: gallop, rub Extremities: pulses intact, No edema, normal color, Full ROM - Gastrointestinal General gastrointestinal: Present: soft, non-tender, non-distended, normal bowel sounds Rectal Exam: deferred - Genitourinary Female genitourinary: deferred - Integumentary Integumentary: clear, warm, dry - Musculoskeletal Musculoskeletal: 1, strength equal bilaterally - Neurologic Neurologic: moves all extremities - Psychiatric Psychiatric: appropriate mood/affect - Labs CBC & Chem 7: 10/02/18 16:17 10/02/18 16:17 Labs: Abnormal lab results 10/02/18 10/03/18 10/03/18 Range/Units 23:58 05:19 12:02 POC Glucose 134 H 160 H 208 H (70-105)
[2018-10-03 21:36] LABS: BUN/Creatinine Ratio 42; Blood Urea Nitrogen 25 mg/dL (7-17); Calcium 8.7 mg/dL (8.4-10.2); Hemolysis Index 19
[2018-10-03] MEDS: ARICEPT PO SCH (22:23)
[2018-10-04] MEDS: HumuLIN R SUB-Q SCH ×4 (01:35→18:42)
[2018-10-04] MEDS: ISORDIL TITRADOSE PO SCH ×4 (05:10→21:04)
[2018-10-04] MEDS: DUONEB *Not for PRN Use IH SCH (07:16)
--- NOTE | 2018-10-04 11:36 | Progress Note ---
Assessment and Plan Acute hypoxemic respiratory failure. Acute gastrointestinal bleed. Acute encephalopathy. History of coronary artery disease. History of gastroesophageal reflux disease. History of diabetes. Hypertension. History of a prior cerebrovascular accident. Arthritis. Dementia - for PEG today - RT asked to do NT suction to help clear oropharynx - repeat CT head with mild mass effect (72 hour steroid taper with dexamethasone) - re-evaluate post PEG placement for tentative transfer to IM - continue aspiration precautions - change albuterol to prn - continue BIPAP support scheduled qhs with prn daytime use - continue bronchodilators prn with pulmonary hygiene per RT - continue supplemental oxygen as needed to keep O2 sat's > 90% - continue accuchecks with glycemic control per SSI for target blood glucose <180mg/dL - Agitation management - Prevention of delirium, maintenance of sleep-wake cycle - neurolology evaluation ongoing - VTE and Stress ulcer prophylaxis - continue other care per attending / other consultants ... re-evaluate in am & prn CONDITION: HIGH RISK PROGNOSIS: GUARDED CODE STATUS: FULL CODE I have spent ( >35 ) minutes with the patient w/ >50% of the time spent counseling and/or coordinating care for this patient. Counseling topics and/or how time was spent coordinating patient's care is outlined in the impression and plan above. Subjective Date of service: 10/04/18 Principal diagnosis: Ac hypoxemic resp failure; Acute CVA; Ac GI bleed; Ac encephalopathy; DM II Interval history: Patient is seen today for: Acute hypoxemic respiratory failure; Acute CVA; Acute gastrointestinal bleed; Acute encephalopathy; CAD; GERD; DM II; HTN; Arthritis; Dementia. Seen and examined at bedside; 24hour events reviewed; nursing and respiratory care staff consulted; no adverse overnight events reported to me; still lethargic but actually shows two fingers to commands; has some trouble with lindsay ring oropharyngeal secretions; NO N/V/F/C; s/p repeat CT head with mild mass effect Objective Vital Signs - 12hr 10/04/18 10/04/18 10/04/18 00:00 00:01 00:03 Temperature Pulse Rate 94 H 94 H 93 H Pulse Rate [ Anterior Bilateral] Pulse Rate [ 92 H From Monitor] Respiratory 23 15 22 Rate Respiratory Rate [Anterior Bilateral] Blood Pressure 145/73 145/73 O2 Sat by Pulse 100 100 100 Oximetry 10/04/18 10/04/1819 00:30 01:00 01:30 Temperature Pulse Rate 91 H 93 H 92 H Pulse Rate [ Anterior Bilateral] Pulse Rate [ From Monitor] Respiratory 26 H 24 24 Rate Respiratory Rate [Anterior Bilateral] Blood Pressure 109/44 114/40 117/47 O2 Sat by Pulse 100 100 100 Oximetry 10/04/18 10/04/18 10/04/18 02:00 02:30 03:01 Temperature Pulse Rate 91 H 89 85 Pulse Rate [ Anterior Bilateral] Pulse Rate [ From Monitor] Respiratory 25 H 23 20 Rate Respiratory Rate [Anterior Bilateral] Blood Pressure 131/49 138/46 121/39 O2 Sat by Pulse 100 100 100 Oximetry 10/04/18 10/04/18 10/04/18 03:30 04:00 04:20 Temperature 98.6 F Pulse Rate 85 92 H 88 Pulse Rate [ Anterior Bilateral] Pulse Rate [ 90 From Monitor] Respiratory 21 24 23 Rate Respiratory Rate [Anterior Bilateral] Blood Pressure 129/48 129/43 O2 Sat by Pulse 100 100 100 Oximetry 10/04/18 10/04/18 10/04/18 04:30 05:00 05:10 Temperature Pulse Rate 88 93 H 90 Pulse Rate [ Anterior Bilateral] Pulse Rate [ From Monitor] Respiratory 25 H 25 H Rate Respiratory Rate [Anterior Bilateral] Blood Pressure 123/51 130/55 130/55 O2 Sat by Pulse 100 100 Oximetry 10/04/18 10/04/18 10/04/18 05:30 06:01 06:30 Temperature Pulse Rate 84 91 H 90 Pulse Rate [ Anterior Bilateral] Pulse Rate [ From Monitor] Respiratory 21 24 22 Rate Respiratory Rate [Anterior Bilateral] Blood Pressure 111/42 122/55 133/49 O2 Sat by Pulse 100 100 100 Oximetry 10/04/18 10/04/18 10/04/18 07:01 07:17 07:30 Temperature Pulse Rate 89 89 Pulse Rate [ 93 H Anterior Bilateral] Pulse Rate [ From Monitor] Respiratory 23 21 Rate Respiratory 16 Rate [Anterior Bilateral] Blood Pressure 146/50 129/54 O2 Sat by Pulse 100 100 Oximetry 10/04/18 10/04/18 10/04/18 08:00 08:01 08:30 Temperature 99.1 F Pulse Rate 94 H 90 Pulse Rate [ Anterior Bilateral] Pulse Rate [ 95 H From Monitor] Respiratory 24 22 23 Rate Respiratory Rate [Anterior Bilateral] Blood Pressure 172/76 137/52 O2 Sat by Pulse 100 100 100 Oximetry 10/04/18 10/04/18 10/04/18 09:00 09:15 09:31 Temperature Pulse Rate 88 88 88 Pulse Rate [ Anterior Bilateral] Pulse Rate [ From Monitor] Respiratory 22 21 Rate Respiratory Rate [Anterior Bilateral] Blood Pressure 130/35 144/49 O2 Sat by Pulse 100 100 Oximetry 10/04/18 10:00 Temperature Pulse Rate 97 H Pulse Rate [ Anterior Bilateral] Pulse Rate [ From Monitor] Respiratory 30 H Rate Respiratory Rate [Anterior Bilateral] Blood Pressure 132/54 O2 Sat by Pulse 100 Oximetry Constitutional: appears uncomfortable, other (elderly looking AAF, normocephalic and atraumatic with mildly increased resp effort at rest) Eyes: non-icteric ENT: oropharynx moist Neck: supple, no lymphadenopathy, no JVD, other (large neck circumference) Effort: mildly labored Ascultation: Bilateral: diminished breath sounds, rhonchi, other (upper airway transmitted sounds) Percussion: Bilateral: not dull Cardiovascular: regular rate and rhythm, murmur noted (soft systolic), other (S1,S2) Gastrointestinal: normoactive bowel sounds, soft, non-tender, non-distended Integumentary: normal Extremities: no cyanosis, no edema, pulses normal, no ischemia or petechiae, edema (trace to upper extremities bilaterally) Neurologic: pupils equal and round, other (Left hemiparesis, will squeeze with right hand intermittently) Psychiatric: other (flat affect) CBC and BMP: 10/02/18 16:17 10/03/18 20:58 ABG, PT/INR, D-dimer: ABG POC ABG pH 7.364 (7.35-7.45) 09/28/18 18:04 POC ABG pCO2 38.2 (35-45) 09/28/18 18:04 POC ABG pO2 123 (80-105) H 09/28/18 18:04 POC ABG HCO3 21.8 (22-26 mml/L) 09/28/18 18:04 POC ABG Total CO2 23 (23-27mmol/L) 09/28/18 18:04 POC ABG O2 Sat 99 09/28/18 18:04 PT/INR, D-dimer PT 13.3 Sec. (12.2-14.9) 10/02/18 16:17 INR 1.04 (0.87-1.13) 10/02/18 16:17 Abnormal lab findings: Abnormal Labs 09/19/18 09/19/18 09/19/18 15:11 15:11 16:01 WBC 3.7 L RBC 2.85 L Hgb 9.6 L Hct 28.0 L MCV 99 H MCH 34 H MCHC RDW 12.7 L Plt Count Lymph % (Auto) 41.9 H Brooke % (Auto) 14.9 H Lymph # Brooke # Seg Neutrophils % Seg Neuts % (Manual) Lymphocytes % (Manual) Monocytes % (Manual) Seg Neutrophils # 1.5 L Lymphocytes # (Manual) POC ABG pCO2 POC ABG pO2 Sodium Potassium Chloride 107.9 H Carbon Dioxide BUN 23 H Creatinine Glucose 191 H POC Glucose ALT Total Protein Albumin Ur Specific Ivor 1.031 H Crossmatch 09/19/18 09/19/18 09/20/18 21:01 21:10 00:22 WBC RBC 2.39 L Hgb 8.1 L Hct 23.6 L MCV 99 H MCH 34 H MCHC RDW 12.5 L Plt Count Lymph % (Auto) Brooke % (Auto) 9.9 H Lymph # Brooke # Seg Neutrophils % Seg Neuts % (Manual) Lymphocytes % (Manual) Monocytes % (Manual) Seg Neutrophils # Lymphocytes # (Manual) POC ABG pCO2 POC ABG pO2 Sodium Potassium Chloride Carbon Dioxide BUN Creatinine Glucose POC Glucose 229 H ALT Total Protein Albumin Ur Specific Ivor Crossmatch See Detail 09/20/18 09/20/18 09/20/18 06:11 06:15 08:17 WBC RBC 2.27 L Hgb 7.6 L Hct 22.4 L MCV 99 H MCH 34 H MCHC RDW 12.7 L Plt Count Lymph % (Auto) 35.1 H Brooke % (Auto) 11.4 H Lymph # Brooke # Seg Neutrophils % Seg Neuts % (Manual) Lymphocytes % (Manual) Monocytes % (Manual) Seg Neutrophils # Lymphocytes # (Manual) POC ABG pCO2 POC ABG pO2 Sodium Potassium Chloride Carbon Dioxide BUN Creatinine Glucose POC Glucose 246 H 253 H ALT Total Protein Albumin Ur Specific Ivor Crossmatch 09/20/18 09/20/18 09/20/18 11:52 17:17 21:10 WBC RBC Hgb Hct MCV MCH MCHC RDW Plt Count Lymph % (Auto) Brooke % (Auto) Lymph # Brooke # Seg Neutrophils % Seg Neuts % (Manual) Lymphocytes % (Manual) Monocytes % (Manual) Seg Neutrophils # Lymphocytes # (Manual) POC ABG pCO2 POC ABG pO2 Sodium Potassium Chloride Carbon Dioxide BUN Creatinine Glucose POC Glucose 278 H 241 H 245 H ALT Total Protein Albumin Ur Specific Ivor Crossmatch 09/21/18 09/21/18 09/21/18 05:15 07:43 16:35 WBC RBC 3.35 L Hgb Hct MCV MCH 33 H MCHC 35 H RDW Plt Count 134 L Lymph % (Auto) Brooke % (Auto) 12.4 H Lymph # Brooke # 1.0 H Seg Neutrophils % Seg Neuts % (Manual) Lymphocytes % (Manual) Monocytes % (Manual) Seg Neutrophils # Lymphocytes # (Manual) POC ABG pCO2 POC ABG pO2 Sodium Potassium Chloride Carbon Dioxide BUN Creatinine Glucose POC Glucose 278 H 237 H ALT Total Protein Albumin Ur Specific Ivor Crossmatch 09/21/18 09/21/18 09/22/18 19:20 19:42 01:05 WBC RBC 2.66 L 2.43 L Hgb 8.7 L 8.0 L Hct 25.9 L D 23.4 L MCV MCH 33 H 33 H MCHC RDW Plt Count 137 L 127 L Lymph % (Auto) 12.7 L Brooke % (Auto) 11.0 H Lymph # Brooke # 1.1 H Seg Neutrophils % 75.8 H Seg Neuts % (Manual) Lymphocytes % (Manual) Monocytes % (Manual) Seg Neutrophils # Lymphocytes # (Manual) POC ABG pCO2 POC ABG pO2 Sodium Potassium Chloride Carbon Dioxide BUN Creatinine Glucose POC Glucose 264 H ALT Total Protein Albumin Ur Specific Ivor Crossmatch 09/22/18 09/22/18 09/22/18 05:20 07:29 11:48 WBC RBC 2.43 L Hgb 8.0 L Hct 23.4 L MCV MCH 33 H MCHC RDW Plt Count 118 L Lymph % (Auto) Brooke % (Auto) 14.0 H Lymph # Brooke # 1.1 H Seg Neutrophils % Seg Neuts % (Manual) Lymphocytes % (Manual) Monocytes % (Manual) Seg Neutrophils # Lymphocytes # (Manual) POC ABG pCO2 POC ABG pO2 Sodium Potassium Chloride Carbon Dioxide BUN Creatinine Glucose POC Glucose 335 H 300 H ALT Total Protein Albumin Ur Specific Ivor Crossmatch 09/22/18 09/22/18 09/23/18 16:55 21:04 04:52 WBC 4.4 L RBC 2.40 L Hgb 8.0 L Hct 23.4 L MCV 98 H MCH 33 H MCHC RDW Plt Count 115 L Lymph % (Auto) Brooke % (Auto) 12.2 H Lymph # Brooke # Seg Neutrophils % Seg Neuts % (Manual) Lymphocytes % (Manual) Monocytes % (Manual) Seg Neutrophils # Lymphocytes # (Manual) POC ABG pCO2 POC ABG pO2 Sodium Potassium Chloride Carbon Dioxide BUN Creatinine Glucose POC Glucose 340 H 285 H ALT Total Protein Albumin Ur Specific Ivor Crossmatch 09/23/18 09/23/18 09/23/18 04:52 07:33 11:23 WBC RBC Hgb Hct MCV MCH MCHC RDW Plt Count Lymph % (Auto) Brooke % (Auto) Lymph # Brooke # Seg Neutrophils % Seg Neuts % (Manual) Lymphocytes % (Manual) Monocytes % (Manual) Seg Neutrophils # Lymphocytes # (Manual) POC ABG pCO2 POC ABG pO2 Sodium Potassium Chloride 110.6 H Carbon Dioxide BUN 19 H Creatinine Glucose 220 H POC Glucose 216 H 307 H ALT Total Protein Albumin Ur Specific Ivor Crossmatch 09/23/18 09/23/18 09/24/18 16:23 20:33 06:09 WBC RBC 2.47 L Hgb 8.0 L Hct 24.8 L MCV 100 H MCH 33 H MCHC RDW Plt Count Lymph % (Auto) Brooke % (Auto) 11.1 H Lymph # Brooke # Seg Neutrophils % Seg Neuts % (Manual) Lymphocytes % (Manual) Monocytes % (Manual) Seg Neutrophils # Lymphocytes # (Manual) POC ABG pCO2 POC ABG pO2 Sodium Potassium Chloride Carbon Dioxide BUN Creatinine Glucose POC Glucose 361 H 261 H ALT Total Protein Albumin Ur Specific Ivor Crossmatch 09/24/18 09/24/18 09/24/18 06:09 08:07 12:06 WBC RBC Hgb Hct MCV MCH MCHC RDW Plt Count Lymph % (Auto) Brooke % (Auto) Lymph # Brooke # Seg Neutrophils % Seg Neuts % (Manual) Lymphocytes % (Manual) Monocytes % (Manual) Seg Neutrophils # Lymphocytes # (Manual) POC ABG pCO2 POC ABG pO2 Sodium Potassium Chloride 110.8 H Carbon Dioxide BUN 18 H Creatinine Glucose 135 H POC Glucose 130 H 154 H ALT Total Protein Albumin Ur Specific Ivor Crossmatch 09/24/18 09/24/18 09/25/18 16:47 20:55 06:05 WBC RBC 2.14 L Hgb 7.0 L Hct 21.1 L MCV 98 H MCH 33 H MCHC RDW Plt Count Lymph % (Auto) Brooke % (Auto) 10.3 H Lymph # Brooke # Seg Neutrophils % Seg Neuts % (Manual) Lymphocytes % (Manual) Monocytes % (Manual) Seg Neutrophils # Lymphocytes # (Manual) POC ABG pCO2 POC ABG pO2 Sodium Potassium Chloride Carbon Dioxide BUN Creatinine Glucose POC Glucose 190 H 233 H ALT Total Protein Albumin Ur Specific Ivor Crossmatch 09/25/18 09/25/18 09/25/18 06:05 08:06 11:13 WBC RBC Hgb Hct MCV MCH MCHC RDW Plt Count Lymph % (Auto) Brooke % (Auto) Lymph # Brooke # Seg Neutrophils % Seg Neuts % (Manual) Lymphocytes % (Manual) Monocytes % (Manual) Seg Neutrophils # Lymphocytes # (Manual) POC ABG pCO2 POC ABG pO2 Sodium 146 H Potassium Chloride 112.6 H Carbon Dioxide BUN 20 H Creatinine Glucose 243 H POC Glucose 248 H 274 H ALT Total Protein Albumin Ur Specific Ivor Crossmatch 09/25/18 09/25/18 09/25/18 14:56 15:05 22:04 WBC RBC 2.31 L Hgb 7.6 L Hct 22.5 L MCV MCH 33 H MCHC RDW Plt Count Lymph % (Auto) Brooke % (Auto) Lymph # Brooke # Seg Neutrophils % Seg Neuts % (Manual) Lymphocytes % (Manual) Monocytes % (Manual) Seg Neutrophils # Lymphocytes # (Manual) POC ABG pCO2 POC ABG pO2 Sodium Potassium Chloride Carbon Dioxide BUN Creatinine Glucose POC Glucose 333 H ALT Total Protein Albumin Ur Specific Ivor Crossmatch See Detail 09/26/18 09/26/18 09/26/18 03:35 05:15 05:15 WBC 12.6 H RBC 3.21 L Hgb Hct MCV MCH MCHC RDW Plt Count Lymph % (Auto) 10.2 L Brooke % (Auto) 11.7 H Lymph # Brooke # 1.5 H Seg Neutrophils % 78.0 H Seg Neuts % (Manual) Lymphocytes % (Manual) Monocytes % (Manual) Seg Neutrophils # 9.9 H Lymphocytes # (Manual) POC ABG pCO2 33.2 L POC ABG pO2 249 H Sodium Potassium Chloride 109.2 H Carbon Dioxide BUN 20 H Creatinine Glucose 234 H POC Glucose ALT Total Protein 5.7 L Albumin 3.2 L Ur Specific Ivor Crossmatch 09/26/18 09/26/18 09/26/18 11:55 17:52 23:32 WBC RBC Hgb Hct MCV MCH MCHC RDW Plt Count Lymph % (Auto) Brooke % (Auto) Lymph # Brooke # Seg Neutrophils % Seg Neuts % (Manual) Lymphocytes % (Manual) Monocytes % (Manual) Seg Neutrophils # Lymphocytes # (Manual) POC ABG pCO2 POC ABG pO2 Sodium Potassium Chloride Carbon Dioxide BUN Creatinine Glucose POC Glucose 288 H 292 H 266 H ALT Total Protein Albumin Ur Specific Ivor Crossmatch 09/27/18 09/27/18 09/27/18 03:57 04:18 05:01 WBC RBC 3.03 L Hgb 10.0 L Hct 29.6 L MCV 98 H MCH 33 H MCHC RDW Plt Count 138 L Lymph % (Auto) 10.8 L Brooke % (Auto) 14.6 H Lymph # 1.1 L Brooke # 1.5 H Seg Neutrophils % 74.2 H Seg Neuts % (Manual) Lymphocytes % (Manual) Monocytes % (Manual) Seg Neutrophils # Lymphocytes # (Manual) POC ABG pCO2 POC ABG pO2 Sodium Potassium 3.5 L Chloride 111.3 H Carbon Dioxide BUN Creatinine Glucose 220 H POC Glucose 250 H ALT 6 L Total Protein 5.4 L Albumin 2.9 L Ur Specific Ivor Crossmatch 09/27/18 09/27/18 09/27/18 05:21 11:59 14:29 WBC RBC Hgb Hct MCV MCH MCHC RDW Plt Count Lymph % (Auto) Brooke % (Auto) Lymph # Brooke # Seg Neutrophils % Seg Neuts % (Manual) Lymphocytes % (Manual) Monocytes % (Manual) Seg Neutrophils # Lymphocytes # (Manual) POC ABG pCO2 31.1 L POC ABG pO2 148 H 118 H Sodium Potassium Chloride Carbon Dioxide BUN Creatinine Glucose POC Glucose 240 H ALT Total Protein Albumin Ur Specific Ivor Crossmatch 09/27/18 09/27/18 09/28/18 18:16 23:26 03:57 WBC 12.7 H RBC 3.05 L Hgb 10.0 L Hct 30.0 L MCV 98 H MCH 33 H MCHC RDW 15.5 H Plt Count Lymph % (Auto) 9.5 L Brooke % (Auto) 12.3 H Lymph # Brooke # 1.6 H Seg Neutrophils % 77.6 H Seg Neuts % (Manual) Lymphocytes % (Manual) Monocytes % (Manual) Seg Neutrophils # 9.9 H Lymphocytes # (Manual) POC ABG pCO2 POC ABG pO2 Sodium Potassium Chloride Carbon Dioxide BUN Creatinine Glucose POC Glucose 266 H 242 H ALT Total Protein Albumin Ur Specific Ivor Crossmatch 09/28/18 09/28/18 09/28/18 03:57 04:46 05:55 WBC RBC Hgb Hct MCV MCH MCHC RDW Plt Count Lymph % (Auto) Brooke % (Auto) Lymph # Brooke # Seg Neutrophils % Seg Neuts % (Manual) Lymphocytes % (Manual) Monocytes % (Manual) Seg Neutrophils # Lymphocytes # (Manual) POC ABG pCO2 POC ABG pO2 136 H Sodium Potassium Chloride 109.9 H Carbon Dioxide 21 L BUN Creatinine 0.6 L Glucose 245 H POC Glucose 270 H ALT Total Protein 5.7 L Albumin 2.8 L Ur Specific Ivor Crossmatch 09/28/18 09/28/18 09/28/18 11:51 15:11 17:46 WBC RBC Hgb Hct MCV MCH MCHC RDW Plt Count Lymph % (Auto) Brooke % (Auto) Lymph # Brooke # Seg Neutrophils % Seg Neuts % (Manual) Lymphocytes % (Manual) Monocytes % (Manual) Seg Neutrophils # Lymphocytes # (Manual) POC ABG pCO2 32.6 L POC ABG pO2 116 H Sodium Potassium Chloride Carbon Dioxide BUN Creatinine Glucose POC Glucose 335 H 261 H ALT Total Protein Albumin Ur Specific Ivor Crossmatch 09/28/18 09/28/18 09/29/18 18:04 23:23 04:00 WBC 11.4 H RBC 2.62 L Hgb 8.7 L Hct 25.4 L MCV MCH 33 H MCHC RDW Plt Count Lymph % (Auto) 7.8 L Brooke % (Auto) 12.4 H Lymph # 0.9 L Brooke # 1.4 H Seg Neutrophils % 79.7 H Seg Neuts % (Manual) Lymphocytes % (Manual) Monocytes % (Manual) Seg Neutrophils # 9.1 H Lymphocytes # (Manual) POC ABG pCO2 POC ABG pO2 123 H Sodium Potassium Chloride Carbon Dioxide BUN Creatinine Glucose POC Glucose 209 H ALT Total Protein Albumin Ur Specific Ivor Crossmatch 09/29/18 09/29/18 09/29/18 04:00 05:18 11:49 WBC RBC Hgb Hct MCV MCH MCHC RDW Plt Count Lymph % (Auto) Brooke % (Auto) Lymph # Brooke # Seg Neutrophils % Seg Neuts % (Manual) Lymphocytes % (Manual) Monocytes % (Manual) Seg Neutrophils # Lymphocytes # (Manual) POC ABG pCO2 POC ABG pO2 Sodium Potassium Chloride 109.7 H Carbon Dioxide BUN Creatinine Glucose 176 H POC Glucose 210 H 255 H ALT 6 L Total Protein 5.5 L Albumin 2.7 L Ur Specific Ivor Crossmatch 09/29/18 09/29/18 09/30/18 18:14 23:38 05:00 WBC RBC Hgb Hct MCV MCH MCHC RDW Plt Count Lymph % (Auto) Brooke % (Auto) Lymph # Brooke # Seg Neutrophils % Seg Neuts % (Manual) Lymphocytes % (Manual) Monocytes % (Manual) Seg Neutrophils # Lymphocytes # (Manual) POC ABG pCO2 POC ABG pO2 Sodium Potassium Chloride Carbon Dioxide 20 L BUN 30 H Creatinine Glucose 307 H POC Glucose 410 H 280 H ALT Total Protein 5.7 L Albumin 2.5 L Ur Specific Ivor Crossmatch 09/30/18 09/30/18 09/30/18 05:36 06:41 11:34 WBC RBC 2.72 L Hgb 8.9 L Hct 27.1 L MCV 100 H MCH 33 H MCHC RDW 15.3 H Plt Count Lymph % (Auto) Brooke % (Auto) Lymph # Brooke # Seg Neutrophils % Seg Neuts % (Manual) 80.0 H Lymphocytes % (Manual) 13.0 L Monocytes % (Manual) Seg Neutrophils # Lymphocytes # (Manual) 1.1 L POC ABG pCO2 POC ABG pO2 Sodium Potassium Chloride Carbon Dioxide BUN Creatinine Glucose POC Glucose 302 H 318 H ALT Total Protein Albumin Ur Specific Ivor Crossmatch 09/30/18 09/30/18 10/01/18 17:50 23:53 03:16 WBC RBC 2.66 L Hgb 8.7 L Hct 25.9 L MCV MCH 33 H MCHC RDW Plt Count Lymph % (Auto) 10.2 L Brooke % (Auto) 14.0 H Lymph # 0.9 L Brooke # 1.2 H Seg Neutrophils % 75.4 H Seg Neuts % (Manual) Lymphocytes % (Manual) Monocytes % (Manual) Seg Neutrophils # Lymphocytes # (Manual) POC ABG pCO2 POC ABG pO2 Sodium Potassium Chloride Carbon Dioxide BUN Creatinine Glucose POC Glucose 244 H 236 H ALT Total Protein Albumin Ur Specific Ivor Crossmatch 10/01/18 10/01/18 10/01/18 03:16 05:19 12:33 WBC RBC Hgb Hct MCV MCH MCHC RDW Plt Count Lymph % (Auto) Brooke % (Auto) Lymph # Brooke # Seg Neutrophils % Seg Neuts % (Manual) Lymphocytes % (Manual) Monocytes % (Manual) Seg Neutrophils # Lymphocytes # (Manual) POC ABG pCO2 POC ABG pO2 Sodium Potassium Chloride 111.4 H Carbon Dioxide BUN 31 H Creatinine Glucose 217 H POC Glucose 278 H 304 H ALT Total Protein 5.6 L Albumin 2.4 L Ur Specific Ivor Crossmatch 10/01/18 10/01/18 10/02/18 18:18 23:12 05:13 WBC RBC Hgb Hct MCV MCH MCHC RDW Plt Count Lymph % (Auto) Brooke % (Auto) Lymph # Brooke # Seg Neutrophils % Seg Neuts % (Manual) Lymphocytes % (Manual) Monocytes % (Manual) Seg Neutrophils # Lymphocytes # (Manual) POC ABG pCO2 POC ABG pO2 Sodium Potassium Chloride Carbon Dioxide BUN Creatinine Glucose POC Glucose 212 H 212 H 207 H ALT Total Protein Albumin Ur Specific Ivor Crossmatch 10/02/18 10/02/18 10/02/18 11:37 16:17 16:17 WBC RBC 2.35 L Hgb 7.6 L Hct 23.1 L MCV 98 H MCH MCHC RDW 15.4 H Plt Count Lymph % (Auto) Brooke % (Auto) Lymph # Brooke # Seg Neutrophils % Seg Neuts % (Manual) 75.0 H Lymphocytes % (Manual) Monocytes % (Manual) 10.0 H Seg Neutrophils # Lymphocytes # (Manual) 0.9 L POC ABG pCO2 POC ABG pO2 Sodium Potassium Chloride 111.3 H Carbon Dioxide BUN 31 H Creatinine 0.6 L Glucose 201 H POC Glucose 227 H ALT Total Protein 5.2 L Albumin 2.4 L Ur Specific Ivor Crossmatch 10/02/18 10/02/18 10/03/18 16:52 23:58 05:19 WBC RBC Hgb Hct MCV MCH MCHC RDW Plt Count Lymph % (Auto) Brooke % (Auto) Lymph # Brooke # Seg Neutrophils % Seg Neuts % (Manual) Lymphocytes % (Manual) Monocytes % (Manual) Seg Neutrophils # Lymphocytes # (Manual) POC ABG pCO2 POC ABG pO2 Sodium Potassium Chloride Carbon Dioxide BUN Creatinine Glucose POC Glucose 222 H 134 H 160 H ALT Total Protein Albumin Ur Specific Ivor Crossmatch 10/03/18 10/03/18 10/03/18 12:02 17:09 20:58 WBC RBC Hgb Hct MCV MCH MCHC RDW Plt Count Lymph % (Auto) Brooke % (Auto) Lymph # Brooke # Seg Neutrophils % Seg Neuts % (Manual) Lymphocytes % (Manual) Monocytes % (Manual) Seg Neutrophils # Lymphocytes # (Manual) POC ABG pCO2 POC ABG pO2 Sodium Potassium Chloride 111.2 H Carbon Dioxide BUN 25 H Creatinine 0.6 L Glucose 223 H POC Glucose 208 H 256 H ALT Total Protein Albumin Ur Specific Ivor Crossmatch 10/03/18 10/04/18 23:37 05:20 WBC RBC Hgb Hct MCV MCH MCHC RDW Plt Count Lymph % (Auto) Brooke % (Auto) Lymph # Brooke # Seg Neutrophils % Seg Neuts % (Manual) Lymphocytes % (Manual) Monocytes % (Manual) Seg Neutrophils # Lymphocytes # (Manual) POC ABG pCO2 POC ABG pO2 Sodium Potassium Chloride Carbon Dioxide BUN Creatinine Glucose POC Glucose 265 H 245 H ALT Total Protein Albumin Ur Specific Ivor Crossmatch Chest x-ray: image reviewed (no new / focal infiltrate; NGT going through mediastinum) Allied health notes reviewed: nursing
--- NOTE | 2018-10-04 11:41 | Cat Scan Report ---
CT HEAD WITHOUT CONTRAST INDICATION / CLINICAL INFORMATION: ams. Follow-up cerebrovascular accident. TECHNIQUE: All CT scans at this location are performed using CT dose reduction for ALARA by means of automated e xposure control. COMPARISON: Head CT 09/25/2018 and 08/24/2018. FINDINGS: HEMORRHAGE: No evidence of intracranial hemorrhage or extra-axial fluid collection. EXTRA-AXIAL SPACES: Recent right anterior cerebral artery infarction involving portions of the right frontal and parietal lobes contributes to effacement of cortical sulci along the medial aspect of the right frontal and parietal lobes and compression of the frontal horn and anterior body of the right lateral ventricle. Cortical sulci, sylvian fissures and basilar cisterns have an otherwise unremarkab le appearance. VENTRICULAR SYSTEM: The ventricular system is otherwise normal in size and configuration. CEREBRAL PARENCHYMA: Cytotoxic edema is present along the medial aspect of the right frontal and arias etal lobes secondary to recent right anterior cerebral artery infarction. Areas of encephalomalacia a re observed along the lateral aspect of the right temporal lobe and in the lateral aspect of the righ t parietal and occipital lobe secondary to remote right MCA infarction. MIDLINE SHIFT OR HERNIATION: There is no midline shift. CEREBELLUM / BRAINSTEM: Brainstem and cerebellum have an unremarkable appearance. INTRACRANIAL VESSELS: Ossified atherosclerotic plaque is present along the course of the cavernous se gments of both internal carotid arteries. ORBITS: Administration is status post bilateral cataract surgery. Visualized portions of the orbits h ave an otherwise unremarkable appearance. SOFT TISSUES of HEAD: No significant abnormality. CALVARIUM: Hyperostosis is observed along the inner table of the frontal bone and in both parietal harika raul. PARANASAL SINUSES / MASTOID AIR CELLS: Paranasal sinuses are free from significant inflammatory mucos al disease. Mastoid air cells are normally pneumatized. ADDITIONAL FINDINGS: A prominent torus palatini is incidentally noted.. IMPRESSION: 1. Subacute right CELIO infarction associated with mild mass effect as described above. 2. Encephalomalacia in the right temporal lobe, right parietal lobe and right occipital lobe secondar y to remote right MCA infarction. 3. No indication of hemorrhagic transformation. Signer Name: Nicolas Mcgowan MD Signed: 10/04/2018 11:37 AM Workstation Name: [id number]
[2018-10-04] MEDS ORDERED: PROVENTIL IH PRN (12:23)
[2018-10-04] MEDS ORDERED: DIPRIVAN 10 MG/ML IV ONE ×3 (12:59→13:00)
[2018-10-04] MEDS ORDERED: SUBLIMAZE ONE (12:59)
[2018-10-04] MEDS ORDERED: NACL 0.9% 1000 ML 1,000 ML IV SCH (13:00)
--- NOTE | 2018-10-04 13:01 | Anesthesia Consultation ---
Anesthesia Consult and Med Hx Date of service: 10/04/18 - Airway Anesthetic Teeth Evaluation: Poor ROM Head & Neck: Adequate Mental/Hyoid Distance: Adequate Mallampati Class: Class III Intubation Access Assessment: Probably Good - Pulmonary Exam CTA: Yes - Cardiac Exam Cardiac Exam: RRR - Pre-Operative Health Status ASA Pre-Surgery Classification: ASA4 Proposed Anesthetic Plan: MAC - Pulmonary Hx Smoking: No Hx Asthma: Yes SOB: Yes (Pulmonary HTN) COPD: No Hx Pneumonia: Yes Hx Sleep Apnea: No - Cardiovascular System Hx Hypertension: Yes Hx Coronary Artery Disease: Yes Hx Heart Attack/AMI: Yes Hx Angina: Yes (neg cardiac enzymes) Hx Percutaneous Transluminal Coronary Angioplasty (PTCA): Yes (2015) Hx Pacemaker: No Hx Internal Defibrillator: No Hx Valvular Heart Disease: No Hx Heart Murmur: No Hx Peripheral Vascular Disease: No - Central Nervous System Hx Neuromuscular Disorder: (AMS) Hx Seizures: No CVA: Yes Hx Back Pain: Yes (R/T FALL) Hx Psychiatric Problems: Yes (dmentioa) - Gastrointestinal Hx Ulcer: No (GI bleed) Hx Gastroesophageal Reflux Disease: Yes (dysphagea, difficulty swallowing) - Endocrine Hx Renal Disease: No Hx End Stage Renal Disease: No Hx Cirrhosis: No Hx Liver Disease: No Hx Insulin Dependent Diabetes: Yes Hx Thyroid Disease: No Hx Hypothyroidism: No Hx Hyperthyroidism: No - Hematic Hx Anemia: Yes (h/o bleeding colon diverticulus) Hx Sickle Cell Disease: No - Other Systems Hx Cancer: No - Additional Comments Anesthesia Medical History Comments: Consent obtained from marycruz Clemens for anesthesia for PEG placement
--- NOTE | 2018-10-04 13:02 | Anesthesia Day of Surgery ---
Anesthesia Day of Surgery - Day of Surgery Patient Examined: Yes Patient H&P Reviewed: Yes Patient is NPO: Yes
[2018-10-04] MEDS ORDERED: VERSED ONE (13:07)
[2018-10-04] MEDS ORDERED: ANCEF/STERILE WATER 2 GM/20 ML 2 GM/20 ML SYRINGE IV STA (13:20)
--- NOTE | 2018-10-04 13:38 | Operative Report ---
Operative Report Operative Report: DOS: 10/04/18 SURGEON: Jesus Lam MD EGD with PEG tube placement REPORT PREOPERATIVE DIAGNOSIS and POSTOPERATIVE DIAGNOSIS: dysphagia ESTIMATED BLOOD LOSS: minimal Findings: * Normal duodenum * Mild atrophic gastritis * GE junction at 38cm from the incisors * Remainder of the exam was normal DESCRIPTION OF PROCEDURE: A high-resolution EGD scope was passed through the oropharynx, esophagus, stomach, and second portion of duodenum. The scope was carefully withdrawn. Retroflexion was performed in the stomach. At the end of the procedure, the scope was cleaned using normal technique. Vital signs monitored continuously throughout. The stomach was transilluminated and an optimal position for the PEG tube was identified using the single poke method. The skin was infiltrated with local anesthesia and the needle and sheath were inserted through the abdomen into the stomach under direct visualization. The needle was removed and a guidewire was inserted through the sheath. The guidewire was grasped from above with a snare. It was removed completely and the PEG tube was secured to the guidewire. The guidewire and PEG tube were then pulled through the mouth and esophagus and snug to the abdominal wall. There was no evidence of bleeding. The Bolster was placed on the PEG site. SEDATION: Provided by [facility]. Medication - Aceph 2g IV x 1 COMPLICATIONS: None. RECOMMENDATIONS: May use PEG for meds and water flushes today, may use for feeds tomorrow as long as abdomen is soft, and normal bowel sounds
[2018-10-04] MEDS ORDERED: XYLOCAINE MPF 2% ONE (14:00)
[2018-10-04] MEDS: PREVACID SOLUTAB FEEDTUBE SCH ×2 (14:16→21:04)
[2018-10-04] MEDS: DECADRON IV SCH ×2 (14:17→21:04)
[2018-10-04] MEDS: TENORMIN PO SCH (14:17)
--- NOTE | 2018-10-04 16:11 | Progress Note ---
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 the stroke is stable ansd can proceed with PEG tube placment given age and other factors doubtful progress at recovery for swallowing is expected... Spoke with Dr. Moreno Gutierrez Objective - Vital Sign Vital Signs - 12hr 10/04/18 10/04/18 10/04/18 04:20 04:30 05:00 Temperature Temperature [ Pre-Procedure] Pulse Rate 88 88 93 H Pulse Rate [ Anterior Bilateral] Pulse Rate [ 90 From Monitor] Pulse Rate [ Intra-Procedure ] Pulse Rate [ Post-Procedure] Pulse Rate [Pre -Procedure] Respiratory 23 25 H 25 H Rate Respiratory Rate [Anterior Bilateral] Respiratory Rate [Intra- Procedure] Respiratory Rate [Post- Procedure] Respiratory Rate [Pre- Procedure] Blood Pressure 123/51 130/55 Blood Pressure [Intra- Procedure] Blood Pressure [Post-Procedure ] Blood Pressure [Pre-Procedure] O2 Sat by Pulse 100 100 100 Oximetry O2 Sat by Pulse Oximetry [ Intra-Procedure ] O2 Sat by Pulse Oximetry [Post -Procedure] O2 Sat by Pulse Oximetry [Pre- Procedure] 10/04/18 10/04/18 10/04/18 05:10 05:30 06:01 Temperature Temperature [ Pre-Procedure] Pulse Rate 90 84 91 H Pulse Rate [ Anterior Bilateral] Pulse Rate [ From Monitor] Pulse Rate [ Intra-Procedure ] Pulse Rate [ Post-Procedure] Pulse Rate [Pre -Procedure] Respiratory 21 24 Rate Respiratory Rate [Anterior Bilateral] Respiratory Rate [Intra- Procedure] Respiratory Rate [Post- Procedure] Respiratory Rate [Pre- Procedure] Blood Pressure 130/55 111/42 122/55 Blood Pressure [Intra- Procedure] Blood Pressure [Post-Procedure ] Blood Pressure [Pre-Procedure] O2 Sat by Pulse 100 100 Oximetry O2 Sat by Pulse Oximetry [ Intra-Procedure ] O2 Sat by Pulse Oximetry [Post -Procedure] O2 Sat by Pulse Oximetry [Pre- Procedure] 10/04/18 10/04/18 10/04/18 06:30 07:01 07:17 Temperature Temperature [ Pre-Procedure] Pulse Rate 90 89 Pulse Rate [ 93 H Anterior Bilateral] Pulse Rate [ From Monitor] Pulse Rate [ Intra-Procedure ] Pulse Rate [ Post-Procedure] Pulse Rate [Pre -Procedure] Respiratory 22 23 Rate Respiratory 16 Rate [Anterior Bilateral] Respiratory Rate [Intra- Procedure] Respiratory Rate [Post- Procedure] Respiratory Rate [Pre- Procedure] Blood Pressure 133/49 146/50 Blood Pressure [Intra- Procedure] Blood Pressure [Post-Procedure ] Blood Pressure [Pre-Procedure] O2 Sat by Pulse 100 100 Oximetry O2 Sat by Pulse Oximetry [ Intra-Procedure ] O2 Sat by Pulse Oximetry [Post -Procedure] O2 Sat by Pulse Oximetry [Pre- Procedure] 10/04/18 10/04/18 10/04/18 07:30 08:00 08:01 Temperature 99.1 F Temperature [ Pre-Procedure] Pulse Rate 89 94 H Pulse Rate [ Anterior Bilateral] Pulse Rate [ 95 H From Monitor] Pulse Rate [ Intra-Procedure ] Pulse Rate [ Post-Procedure] Pulse Rate [Pre -Procedure] Respiratory 21 24 22 Rate Respiratory Rate [Anterior Bilateral] Respiratory Rate [Intra- Procedure] Respiratory Rate [Post- Procedure] Respiratory Rate [Pre- Procedure] Blood Pressure 129/54 172/76 Blood Pressure [Intra- Procedure] Blood Pressure [Post-Procedure ] Blood Pressure [Pre-Procedure] O2 Sat by Pulse 100 100 100 Oximetry O2 Sat by Pulse Oximetry [ Intra-Procedure ] O2 Sat by Pulse Oximetry [Post -Procedure] O2 Sat by Pulse Oximetry [Pre- Procedure] 10/04/18 10/04/18 10/04/18 08:30 09:00 09:15 Temperature Temperature [ Pre-Procedure] Pulse Rate 90 88 88 Pulse Rate [ Anterior Bilateral] Pulse Rate [ From Monitor] Pulse Rate [ Intra-Procedure ] Pulse Rate [ Post-Procedure] Pulse Rate [Pre -Procedure] Respiratory 23 22 Rate Respiratory Rate [Anterior Bilateral] Respiratory Rate [Intra- Procedure] Respiratory Rate [Post- Procedure] Respiratory Rate [Pre- Procedure] Blood Pressure 137/52 130/35 Blood Pressure [Intra- Procedure] Blood Pressure [Post-Procedure ] Blood Pressure [Pre-Procedure] O2 Sat by Pulse 100 100 Oximetry O2 Sat by Pulse Oximetry [ Intra-Procedure ] O2 Sat by Pulse Oximetry [Post -Procedure] O2 Sat by Pulse Oximetry [Pre- Procedure] 10/04/18 10/04/18 10/04/18 09:31 10:00 10:31 Temperature Temperature [ Pre-Procedure] Pulse Rate 88 97 H 91 H Pulse Rate [ Anterior Bilateral] Pulse Rate [ From Monitor] Pulse Rate [ Intra-Procedure ] Pulse Rate [ Post-Procedure] Pulse Rate [Pre -Procedure] Respiratory 21 30 H 25 H Rate Respiratory Rate [Anterior Bilateral] Respiratory Rate [Intra- Procedure] Respiratory Rate [Post- Procedure] Respiratory Rate [Pre- Procedure] Blood Pressure 144/49 132/54 151/48 Blood Pressure [Intra- Procedure] Blood Pressure [Post-Procedure ] Blood Pressure [Pre-Procedure] O2 Sat by Pulse 100 100 100 Oximetry O2 Sat by Pulse Oximetry [ Intra-Procedure ] O2 Sat by Pulse Oximetry [Post -Procedure] O2 Sat by Pulse Oximetry [Pre- Procedure] 10/04/18 10/04/18 10/04/18 11:24 11:30 12:00 Temperature 98.8 F Temperature [ Pre-Procedure] Pulse Rate 94 H 92 H Pulse Rate [ Anterior Bilateral] Pulse Rate [ 92 H From Monitor] Pulse Rate [ Intra-Procedure ] Pulse Rate [ Post-Procedure] Pulse Rate [Pre -Procedure] Respiratory 21 24 24 Rate Respiratory Rate [Anterior Bilateral] Respiratory Rate [Intra- Procedure] Respiratory Rate [Post- Procedure] Respiratory Rate [Pre- Procedure] Blood Pressure 151/48 151/56 Blood Pressure [Intra- Procedure] Blood Pressure [Post-Procedure ] Blood Pressure [Pre-Procedure] O2 Sat by Pulse 100 100 Oximetry O2 Sat by Pulse Oximetry [ Intra-Procedure ] O2 Sat by Pulse Oximetry [Post -Procedure] O2 Sat by Pulse Oximetry [Pre- Procedure] 10/04/18 10/04/18 10/04/18 12:01 12:16 12:19 Temperature 98.8 F 98.8 F Temperature [ Pre-Procedure] Pulse Rate 100 H 95 H 95 H Pulse Rate [ Anterior Bilateral] Pulse Rate [ From Monitor] Pulse Rate [ Intra-Procedure ] Pulse Rate [ Post-Procedure] Pulse Rate [Pre -Procedure] Respiratory 23 21 21 Rate Respiratory Rate [Anterior Bilateral] Respiratory Rate [Intra- Procedure] Respiratory Rate [Post- Procedure] Respiratory Rate [Pre- Procedure] Blood Pressure 185/65 172/59 172/59 Blood Pressure [Intra- Procedure] Blood Pressure [Post-Procedure ] Blood Pressure [Pre-Procedure] O2 Sat by Pulse 100 100 100 Oximetry O2 Sat by Pulse Oximetry [ Intra-Procedure ] O2 Sat by Pulse Oximetry [Post -Procedure] O2 Sat by Pulse Oximetry [Pre- Procedure] 10/04/18 10/04/18 10/04/18 12:30 13:01 13:30 Temperature Temperature [ Pre-Procedure] Pulse Rate 97 H 93 H 102 H Pulse Rate [ Anterior Bilateral] Pulse Rate [ From Monitor] Pulse Rate [ Intra-Procedure ] Pulse Rate [ Post-Procedure] Pulse Rate [Pre -Procedure] Respiratory 25 H 24 36 H Rate Respiratory Rate [Anterior Bilateral] Respiratory Rate [Intra- Procedure] Respiratory Rate [Post- Procedure] Respiratory Rate [Pre- Procedure] Blood Pressure 157/67 183/68 135/55 Blood Pressure [Intra- Procedure] Blood Pressure [Post-Procedure ] Blood Pressure [Pre-Procedure] O2 Sat by Pulse 100 100 96 Oximetry O2 Sat by Pulse Oximetry [ Intra-Procedure ] O2 Sat by Pulse Oximetry [Post -Procedure] O2 Sat by Pulse Oximetry [Pre- Procedure] 10/04/18 10/04/18 10/04/18 13:35 13:40 13:50 Temperature Temperature [ 98.8 F Pre-Procedure] Pulse Rate 102 H 102 H Pulse Rate [ Anterior Bilateral] Pulse Rate [ From Monitor] Pulse Rate [ 90 Intra-Procedure ] Pulse Rate [ 101 H Post-Procedure] Pulse Rate [Pre 97 H -Procedure] Respiratory 25 H 25 H Rate Respiratory Rate [Anterior Bilateral] Respiratory 30 H Rate [Intra- Procedure] Respiratory 32 H Rate [Post- Procedure] Respiratory 28 H Rate [Pre- Procedure] Blood Pressure 129/44 129/44 Blood Pressure 145/50 [Intra- Procedure] Blood Pressure 136/52 [Post-Procedure ] Blood Pressure 149/54 [Pre-Procedure] O2 Sat by Pulse 99 99 Oximetry O2 Sat by Pulse 99 Oximetry [ Intra-Procedure ] O2 Sat by Pulse 100 Oximetry [Post -Procedure] O2 Sat by Pulse 100 Oximetry [Pre- Procedure] 10/04/18 10/04/18 10/04/18 14:00 14:17 14:30 Temperature Temperature [ Pre-Procedure] Pulse Rate 95 H 93 H 94 H Pulse Rate [ Anterior Bilateral] Pulse Rate [ From Monitor] Pulse Rate [ Intra-Procedure ] Pulse Rate [ Post-Procedure] Pulse Rate [Pre -Procedure] Respiratory 30 H 32 H Rate Respiratory Rate [Anterior Bilateral] Respiratory Rate [Intra- Procedure] Respiratory Rate [Post- Procedure] Respiratory Rate [Pre- Procedure] Blood Pressure 149/47 169/49 121/47 Blood Pressure [Intra- Procedure] Blood Pressure [Post-Procedure ] Blood Pressure [Pre-Procedure] O2 Sat by Pulse 100 99 Oximetry O2 Sat by Pulse Oximetry [ Intra-Procedure ] O2 Sat by Pulse Oximetry [Post -Procedure] O2 Sat by Pulse Oximetry [Pre- Procedure] 10/04/18 10/04/18 10/04/18 15:00 15:30 16:00 Temperature Temperature [ Pre-Procedure] Pulse Rate 93 H 93 H 92 H Pulse Rate [ Anterior Bilateral] Pulse Rate [ 92 H From Monitor] Pulse Rate [ Intra-Procedure ] Pulse Rate [ Post-Procedure] Pulse Rate [Pre -Procedure] Respiratory 31 H 29 H 26 H Rate Respiratory Rate [Anterior Bilateral] Respiratory Rate [Intra- Procedure] Respiratory Rate [Post- Procedure] Respiratory Rate [Pre- Procedure] Blood Pressure 136/51 146/56 Blood Pressure [Intra- Procedure] Blood Pressure [Post-Procedure ] Blood Pressure [Pre-Procedure] O2 Sat by Pulse 99 100 100 Oximetry O2 Sat by Pulse Oximetry [ Intra-Procedure ] O2 Sat by Pulse Oximetry [Post -Procedure] O2 Sat by Pulse Oximetry [Pre- Procedure] - Laboratory Findings CBC and BMP: 10/02/18 16:17 10/03/18 20:58 Abnormal Lab Findings: Abnormal Labs 09/19/18 09/19/18 09/19/18 15:11 15:11 16:01 WBC 3.7 L RBC 2.85 L Hgb 9.6 L Hct 28.0 L MCV 99 H MCH 34 H MCHC RDW 12.7 L Plt Count Lymph % (Auto) 41.9 H [place] % (Auto) 14.9 H Lymph # [place] # Seg Neutrophils % Seg Neuts % (Manual) Lymphocytes % (Manual) Monocytes % (Manual) Seg Neutrophils # 1.5 L Lymphocytes # (Manual) POC ABG pCO2 POC ABG pO2 Sodium Potassium Chloride 107.9 H Carbon Dioxide BUN 23 H Creatinine Glucose 191 H POC Glucose ALT Total Protein Albumin Ur Specific [place] 1.031 H Crossmatch 09/19/18 09/19/18 09/20/18 21:01 21:10 00:22 WBC RBC 2.39 L Hgb 8.1 L Hct 23.6 L MCV 99 H MCH 34 H MCHC RDW 12.5 L Plt Count Lymph % (Auto) [place] % (Auto) 9.9 H Lymph # [place] # Seg Neutrophils % Seg Neuts % (Manual) Lymphocytes % (Manual) Monocytes % (Manual) Seg Neutrophils # Lymphocytes # (Manual) POC ABG pCO2 POC ABG pO2 Sodium Potassium Chloride Carbon Dioxide BUN Creatinine Glucose POC Glucose 229 H ALT Total Protein Albumin Ur Specific [place] Crossmatch See Detail 09/20/18 09/20/18 09/20/18 06:11 06:15 08:17 WBC RBC 2.27 L Hgb 7.6 L Hct 22.4 L MCV 99 H MCH 34 H MCHC RDW 12.7 L Plt Count Lymph % (Auto) 35.1 H [place] % (Auto) 11.4 H Lymph # [place] # Seg Neutrophils % Seg Neuts % (Manual) Lymphocytes % (Manual) Monocytes % (Manual) Seg Neutrophils # Lymphocytes # (Manual) POC ABG pCO2 POC ABG pO2 Sodium Potassium Chloride Carbon Dioxide BUN Creatinine Glucose POC Glucose 246 H 253 H ALT Total Protein Albumin Ur Specific [place] Crossmatch 09/20/18 09/20/18 09/20/18 11:52 17:17 21:10 WBC RBC Hgb Hct MCV MCH MCHC RDW Plt Count Lymph % (Auto) [place] % (Auto) Lymph # [place] # Seg Neutrophils % Seg Neuts % (Manual) Lymphocytes % (Manual) Monocytes % (Manual) Seg Neutrophils # Lymphocytes # (Manual) POC ABG pCO2 POC ABG pO2 Sodium Potassium Chloride Carbon Dioxide BUN Creatinine Glucose POC Glucose 278 H 241 H 245 H ALT Total Protein Albumin Ur Specific [place] Crossmatch 09/21/18 09/21/18 09/21/18 05:15 07:43 16:35 WBC RBC 3.35 L Hgb Hct MCV MCH 33 H MCHC 35 H RDW Plt Count 134 L Lymph % (Auto) [place] % (Auto) 12.4 H Lymph # [place] # 1.0 H Seg Neutrophils % Seg Neuts % (Manual) Lymphocytes % (Manual) Monocytes % (Manual) Seg Neutrophils # Lymphocytes # (Manual) POC ABG pCO2 POC ABG pO2 Sodium Potassium Chloride Carbon Dioxide BUN Creatinine Glucose POC Glucose 278 H 237 H ALT Total Protein Albumin Ur Specific [place] Crossmatch 09/21/18 09/21/18 09/22/18 19:20 19:42 01:05 WBC RBC 2.66 L 2.43 L Hgb 8.7 L 8.0 L Hct 25.9 L D 23.4 L MCV MCH 33 H 33 H MCHC RDW Plt Count 137 L 127 L Lymph % (Auto) 12.7 L [place] % (Auto) 11.0 H Lymph # [place] # 1.1 H Seg Neutrophils % 75.8 H Seg Neuts % (Manual) Lymphocytes % (Manual) Monocytes % (Manual) Seg Neutrophils # Lymphocytes # (Manual) POC ABG pCO2 POC ABG pO2 Sodium Potassium Chloride Carbon Dioxide BUN Creatinine Glucose POC Glucose 264 H ALT Total Protein Albumin Ur Specific [place] Crossmatch 09/22/18 09/22/18 09/22/18 05:20 07:29 11:48 WBC RBC 2.43 L Hgb 8.0 L Hct 23.4 L MCV MCH 33 H MCHC RDW Plt Count 118 L Lymph % (Auto) [place] % (Auto) 14.0 H Lymph # [place] # 1.1 H Seg Neutrophils % Seg Neuts % (Manual) Lymphocytes % (Manual) Monocytes % (Manual) Seg Neutrophils # Lymphocytes # (Manual) POC ABG pCO2 POC ABG pO2 Sodium Potassium Chloride Carbon Dioxide BUN Creatinine Glucose POC Glucose 335 H 300 H ALT Total Protein Albumin Ur Specific [place] Crossmatch 09/22/18 09/22/18 09/23/18 16:55 21:04 04:52 WBC 4.4 L RBC 2.40 L Hgb 8.0 L Hct 23.4 L MCV 98 H MCH 33 H MCHC RDW Plt Count 115 L Lymph % (Auto) [place] % (Auto) 12.2 H Lymph # [place] # Seg Neutrophils % Seg Neuts % (Manual) Lymphocytes % (Manual) Monocytes % (Manual) Seg Neutrophils # Lymphocytes # (Manual) POC ABG pCO2 POC ABG pO2 Sodium Potassium Chloride Carbon Dioxide BUN Creatinine Glucose POC Glucose 340 H 285 H ALT Total Protein Albumin Ur Specific [place] Crossmatch 09/23/18 09/23/18 09/23/18 04:52 07:33 11:23 WBC RBC Hgb Hct MCV MCH MCHC RDW Plt Count Lymph % (Auto) [place] % (Auto) Lymph # [place] # Seg Neutrophils % Seg Neuts % (Manual) Lymphocytes % (Manual) Monocytes % (Manual) Seg Neutrophils # Lymphocytes # (Manual) POC ABG pCO2 POC ABG pO2 Sodium Potassium Chloride 110.6 H Carbon Dioxide BUN 19 H Creatinine Glucose 220 H POC Glucose 216 H 307 H ALT Total Protein Albumin Ur Specific [place] Crossmatch 09/23/18 09/23/18 09/24/18 16:23 20:33 06:09 WBC RBC 2.47 L Hgb 8.0 L Hct 24.8 L MCV 100 H MCH 33 H MCHC RDW Plt Count Lymph % (Auto) [place] % (Auto) 11.1 H Lymph # [place] # Seg Neutrophils % Seg Neuts % (Manual) Lymphocytes % (Manual) Monocytes % (Manual) Seg Neutrophils # Lymphocytes # (Manual) POC ABG pCO2 POC ABG pO2 Sodium Potassium Chloride Carbon Dioxide BUN Creatinine Glucose POC Glucose 361 H 261 H ALT Total Protein Albumin Ur Specific [place] Crossmatch 09/24/18 09/24/18 09/24/18 06:09 08:07 12:06 WBC RBC Hgb Hct MCV MCH MCHC RDW Plt Count Lymph % (Auto) [place] % (Auto) Lymph # [place] # Seg Neutrophils % Seg Neuts % (Manual) Lymphocytes % (Manual) Monocytes % (Manual) Seg Neutrophils # Lymphocytes # (Manual) POC ABG pCO2 POC ABG pO2 Sodium Potassium Chloride 110.8 H Carbon Dioxide BUN 18 H Creatinine Glucose 135 H POC Glucose 130 H 154 H ALT Total Protein Albumin Ur Specific [place] Crossmatch 09/24/18 09/24/18 09/25/18 16:47 20:55 06:05 WBC RBC 2.14 L Hgb 7.0 L Hct 21.1 L MCV 98 H MCH 33 H MCHC RDW Plt Count Lymph % (Auto) [place] % (Auto) 10.3 H Lymph # [place] # Seg Neutrophils % Seg Neuts % (Manual) Lymphocytes % (Manual) Monocytes % (Manual) Seg Neutrophils # Lymphocytes # (Manual) POC ABG pCO2 POC ABG pO2 Sodium Potassium Chloride Carbon Dioxide BUN Creatinine Glucose POC Glucose 190 H 233 H ALT Total Protein Albumin Ur Specific [place] Crossmatch 09/25/18 09/25/18 09/25/18 06:05 08:06 11:13 WBC RBC Hgb Hct MCV MCH MCHC RDW Plt Count Lymph % (Auto) [place] % (Auto) Lymph # [place] # Seg Neutrophils % Seg Neuts % (Manual) Lymphocytes % (Manual) Monocytes % (Manual) Seg Neutrophils # Lymphocytes # (Manual) POC ABG pCO2 POC ABG pO2 Sodium 146 H Potassium Chloride 112.6 H Carbon Dioxide BUN 20 H Creatinine Glucose 243 H POC Glucose 248 H 274 H ALT Total Protein Albumin Ur Specific [place] Crossmatch 09/25/18 09/25/18 09/25/18 14:56 15:05 22:04 WBC RBC 2.31 L Hgb 7.6 L Hct 22.5 L MCV MCH 33 H MCHC RDW Plt Count Lymph % (Auto) [place] % (Auto) Lymph # [place] # Seg Neutrophils % Seg Neuts % (Manual) Lymphocytes % (Manual) Monocytes % (Manual) Seg Neutrophils # Lymphocytes # (Manual) POC ABG pCO2 POC ABG pO2 Sodium Potassium Chloride Carbon Dioxide BUN Creatinine Glucose POC Glucose 333 H ALT Total Protein Albumin Ur Specific [place] Crossmatch See Detail 09/26/18 09/26/18 09/26/18 03:35 05:15 05:15 WBC 12.6 H RBC 3.21 L Hgb Hct MCV MCH MCHC RDW Plt Count Lymph % (Auto) 10.2 L [place] % (Auto) 11.7 H Lymph # [place] # 1.5 H Seg Neutrophils % 78.0 H Seg Neuts % (Manual) Lymphocytes % (Manual) Monocytes % (Manual) Seg Neutrophils # 9.9 H Lymphocytes # (Manual) POC ABG pCO2 33.2 L POC ABG pO2 249 H Sodium Potassium Chloride 109.2 H Carbon Dioxide BUN 20 H Creatinine Glucose 234 H POC Glucose ALT Total Protein 5.7 L Albumin 3.2 L Ur Specific [place] Crossmatch 09/26/18 09/26/18 09/26/18 11:55 17:52 23:32 WBC RBC Hgb Hct MCV MCH MCHC RDW Plt Count Lymph % (Auto) [place] % (Auto) Lymph # [place] # Seg Neutrophils % Seg Neuts % (Manual) Lymphocytes % (Manual) Monocytes % (Manual) Seg Neutrophils # Lymphocytes # (Manual) POC ABG pCO2 POC ABG pO2 Sodium Potassium Chloride Carbon Dioxide BUN Creatinine Glucose POC Glucose 288 H 292 H 266 H ALT Total Protein Albumin Ur Specific [place] Crossmatch 09/27/18 09/27/18 09/27/18 03:57 04:18 05:01 WBC RBC 3.03 L Hgb 10.0 L Hct 29.6 L MCV 98 H MCH 33 H MCHC RDW Plt Count 138 L Lymph % (Auto) 10.8 L [place] % (Auto) 14.6 H Lymph # 1.1 L [place] # 1.5 H Seg Neutrophils % 74.2 H Seg Neuts % (Manual) Lymphocytes % (Manual) Monocytes % (Manual) Seg Neutrophils # Lymphocytes # (Manual) POC ABG pCO2 POC ABG pO2 Sodium Potassium 3.5 L Chloride 111.3 H Carbon Dioxide BUN Creatinine Glucose 220 H POC Glucose 250 H ALT 6 L Total Protein 5.4 L Albumin 2.9 L Ur Specific [place] Crossmatch 09/27/18 09/27/18 09/27/18 05:21 11:59 14:29 WBC RBC Hgb Hct MCV MCH MCHC RDW Plt Count Lymph % (Auto) [place] % (Auto) Lymph # [place] # Seg Neutrophils % Seg Neuts % (Manual) Lymphocytes % (Manual) Monocytes % (Manual) Seg Neutrophils # Lymphocytes # (Manual) POC ABG pCO2 31.1 L POC ABG pO2 148 H 118 H Sodium Potassium Chloride Carbon Dioxide BUN Creatinine Glucose POC Glucose 240 H ALT Total Protein Albumin Ur Specific [place] Crossmatch 09/27/18 09/27/18 09/28/18 18:16 23:26 03:57 WBC 12.7 H RBC 3.05 L Hgb 10.0 L Hct 30.0 L MCV 98 H MCH 33 H MCHC RDW 15.5 H Plt Count Lymph % (Auto) 9.5 L [place] % (Auto) 12.3 H Lymph # [place] # 1.6 H Seg Neutrophils % 77.6 H Seg Neuts % (Manual) Lymphocytes % (Manual) Monocytes % (Manual) Seg Neutrophils # 9.9 H Lymphocytes # (Manual) POC ABG pCO2 POC ABG pO2 Sodium Potassium Chloride Carbon Dioxide BUN Creatinine Glucose POC Glucose 266 H 242 H ALT Total Protein Albumin Ur Specific [place] Crossmatch 09/28/18 09/28/18 09/28/18 03:57 04:46 05:55 WBC RBC Hgb Hct MCV MCH MCHC RDW Plt Count Lymph % (Auto) [place] % (Auto) Lymph # [place] # Seg Neutrophils % Seg Neuts % (Manual) Lymphocytes % (Manual) Monocytes % (Manual) Seg Neutrophils # Lymphocytes # (Manual) POC ABG pCO2 POC ABG pO2 136 H Sodium Potassium Chloride 109.9 H Carbon Dioxide 21 L BUN Creatinine 0.6 L Glucose 245 H POC Glucose 270 H ALT Total Protein 5.7 L Albumin 2.8 L Ur Specific [place] Crossmatch 09/28/18 09/28/18 09/28/18 11:51 15:11 17:46 WBC RBC Hgb Hct MCV MCH MCHC RDW Plt Count Lymph % (Auto) [place] % (Auto) Lymph # [place] # Seg Neutrophils % Seg Neuts % (Manual) Lymphocytes % (Manual) Monocytes % (Manual) Seg Neutrophils # Lymphocytes # (Manual) POC ABG pCO2 32.6 L POC ABG pO2 116 H Sodium Potassium Chloride Carbon Dioxide BUN Creatinine Glucose POC Glucose 335 H 261 H ALT Total Protein Albumin Ur Specific [place] Crossmatch 09/28/18 09/28/18 09/29/18 18:04 23:23 04:00 WBC 11.4 H RBC 2.62 L Hgb 8.7 L Hct 25.4 L MCV MCH 33 H MCHC RDW Plt Count Lymph % (Auto) 7.8 L [place] % (Auto) 12.4 H Lymph # 0.9 L [place] # 1.4 H Seg Neutrophils % 79.7 H Seg Neuts % (Manual) Lymphocytes % (Manual) Monocytes % (Manual) Seg Neutrophils # 9.1 H Lymphocytes # (Manual) POC ABG pCO2 POC ABG pO2 123 H Sodium Potassium Chloride Carbon Dioxide BUN Creatinine Glucose POC Glucose 209 H ALT Total Protein Albumin Ur Specific [place] Crossmatch 09/29/18 09/29/18 09/29/18 04:00 05:18 11:49 WBC RBC Hgb Hct MCV MCH MCHC RDW Plt Count Lymph % (Auto) [place] % (Auto) Lymph # [place] # Seg Neutrophils % Seg Neuts % (Manual) Lymphocytes % (Manual) Monocytes % (Manual) Seg Neutrophils # Lymphocytes # (Manual) POC ABG pCO2 POC ABG pO2 Sodium Potassium Chloride 109.7 H Carbon Dioxide BUN Creatinine Glucose 176 H POC Glucose 210 H 255 H ALT 6 L Total Protein 5.5 L Albumin 2.7 L Ur Specific [place] Crossmatch 09/29/18 09/29/18 09/30/18 18:14 23:38 05:00 WBC RBC Hgb Hct MCV MCH MCHC RDW Plt Count Lymph % (Auto) [place] % (Auto) Lymph # [place] # Seg Neutrophils % Seg Neuts % (Manual) Lymphocytes % (Manual) Monocytes % (Manual) Seg Neutrophils # Lymphocytes # (Manual) POC ABG pCO2 POC ABG pO2 Sodium Potassium Chloride Carbon Dioxide 20 L BUN 30 H Creatinine Glucose 307 H POC Glucose 410 H 280 H ALT Total Protein 5.7 L Albumin 2.5 L Ur Specific [place] Crossmatch 09/30/18 09/30/18 09/30/18 05:36 06:41 11:34 WBC RBC 2.72 L Hgb 8.9 L Hct 27.1 L MCV 100 H MCH 33 H MCHC RDW 15.3 H Plt Count Lymph % (Auto) [place] % (Auto) Lymph # [place] # Seg Neutrophils % Seg Neuts % (Manual) 80.0 H Lymphocytes % (Manual) 13.0 L Monocytes % (Manual) Seg Neutrophils # Lymphocytes # (Manual) 1.1 L POC ABG pCO2 POC ABG pO2 Sodium Potassium Chloride Carbon Dioxide BUN Creatinine Glucose POC Glucose 302 H 318 H ALT Total Protein Albumin Ur Specific [place] Crossmatch 09/30/18 09/30/18 10/01/18 17:50 23:53 03:16 WBC RBC 2.66 L Hgb 8.7 L Hct 25.9 L MCV MCH 33 H MCHC RDW Plt Count Lymph % (Auto) 10.2 L [place] % (Auto) 14.0 H Lymph # 0.9 L [place] # 1.2 H Seg Neutrophils % 75.4 H Seg Neuts % (Manual) Lymphocytes % (Manual) Monocytes % (Manual) Seg Neutrophils # Lymphocytes # (Manual) POC ABG pCO2 POC ABG pO2 Sodium Potassium Chloride Carbon Dioxide BUN Creatinine Glucose POC Glucose 244 H 236 H ALT Total Protein Albumin Ur Specific [place] Crossmatch 10/01/18 10/01/18 10/01/18 03:16 05:19 12:33 WBC RBC Hgb Hct MCV MCH MCHC RDW Plt Count Lymph % (Auto) [place] % (Auto) Lymph # [place] # Seg Neutrophils % Seg Neuts % (Manual) Lymphocytes % (Manual) Monocytes % (Manual) Seg Neutrophils # Lymphocytes # (Manual) POC ABG pCO2 POC ABG pO2 Sodium Potassium Chloride 111.4 H Carbon Dioxide BUN 31 H Creatinine Glucose 217 H POC Glucose 278 H 304 H ALT Total Protein 5.6 L Albumin 2.4 L Ur Specific [place] Crossmatch 10/01/18 10/01/18 10/02/18 18:18 23:12 05:13 WBC RBC Hgb Hct MCV MCH MCHC RDW Plt Count Lymph % (Auto) [place] % (Auto) Lymph # [place] # Seg Neutrophils % Seg Neuts % (Manual) Lymphocytes % (Manual) Monocytes % (Manual) Seg Neutrophils # Lymphocytes # (Manual) POC ABG pCO2 POC ABG pO2 Sodium Potassium Chloride Carbon Dioxide BUN Creatinine Glucose POC Glucose 212 H 212 H 207 H ALT Total Protein Albumin Ur Specific [place] Crossmatch 10/02/18 10/02/18 10/02/18 11:37 16:17 16:17 WBC RBC 2.35 L Hgb 7.6 L Hct 23.1 L MCV 98 H MCH MCHC RDW 15.4 H Plt Count Lymph % (Auto) [place] % (Auto) Lymph # [place] # Seg Neutrophils % Seg Neuts % (Manual) 75.0 H Lymphocytes % (Manual) Monocytes % (Manual) 10.0 H Seg Neutrophils # Lymphocytes # (Manual) 0.9 L POC ABG pCO2 POC ABG pO2 Sodium Potassium Chloride 111.3 H Carbon Dioxide BUN 31 H Creatinine 0.6 L Glucose 201 H POC Glucose 227 H ALT Total Protein 5.2 L Albumin 2.4 L Ur Specific [place] Crossmatch 10/02/18 10/02/18 10/03/18 16:52 23:58 05:19 WBC RBC Hgb Hct MCV MCH MCHC RDW Plt Count Lymph % (Auto) [place] % (Auto) Lymph # [place] # Seg Neutrophils % Seg Neuts % (Manual) Lymphocytes % (Manual) Monocytes % (Manual) Seg Neutrophils # Lymphocytes # (Manual) POC ABG pCO2 POC ABG pO2 Sodium Potassium Chloride Carbon Dioxide BUN Creatinine Glucose POC Glucose 222 H 134 H 160 H ALT Total Protein Albumin Ur Specific [place] Crossmatch 10/03/18 10/03/18 10/03/18 12:02 17:09 20:58 WBC RBC Hgb Hct MCV MCH MCHC RDW Plt Count Lymph % (Auto) [place] % (Auto) Lymph # [place] # Seg Neutrophils % Seg Neuts % (Manual) Lymphocytes % (Manual) Monocytes % (Manual) Seg Neutrophils # Lymphocytes # (Manual) POC ABG pCO2 POC ABG pO2 Sodium Potassium Chloride 111.2 H Carbon Dioxide BUN 25 H Creatinine 0.6 L Glucose 223 H POC Glucose 208 H 256 H ALT Total Protein Albumin Ur Specific [place] Crossmatch 10/03/18 10/04/18 10/04/18 23:37 05:20 12:01 WBC RBC Hgb Hct MCV MCH MCHC RDW Plt Count Lymph % (Auto) [place] % (Auto) Lymph # [place] # Seg Neutrophils % Seg Neuts % (Manual) Lymphocytes % (Manual) Monocytes % (Manual) Seg Neutrophils # Lymphocytes # (Manual) POC ABG pCO2 POC ABG pO2 Sodium Potassium Chloride Carbon Dioxide BUN Creatinine Glucose POC Glucose 265 H 245 H 222 H ALT Total Protein Albumin Ur Specific [place] Crossmatch
[2018-10-04] MEDS: APRESOLINE IV PRN (16:33)
--- NOTE | 2018-10-04 20:12 | Progress Note ---
Assessment and Plan - Patient Problems (1) LGI bleed Current Visit: Yes Plan to address problem: Follow GI , monitor labs. notes reviewed from GI. this is severe diverticular dz., not amendable to surgery. See notes above. Had some evidence of loss. same as above. (2) Dementia Current Visit: Yes Status: Chronic Qualifiers: Alzheimer's disease onset: unspecified onset Dementia behavioral disturbance: without behavioral disturbance Plan to address problem: supportive care. (3) Abdominal pain Current Visit: Yes Status: Acute Plan to address problem: Await scope. resolved. (4) Anemia Current Visit: Yes Status: Acute Plan to address problem: Monitor labs PRN. Transfusion, as necessary. same as above. Stable, post bld transfusion. 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 Awaiting neurology eval. Spoken to neurology. Subjective Date of service: 10/04/18 Principal diagnosis: Ac hypoxemic resp failure; Acute CVA; Ac GI bleed; Ac encephalopathy; DM II Interval history: Patient seen/examined, resting in bed, labs/ notes/consults reviewed. Patient scheduled for a scope tomorrow.I have given some transfusion, and will do H/h q6hrs. Patient seen/examined, resting in bed, labs/ operative notes reviewed.Will restart on IVF, and restart diet tomorrow. Patient seen/examined, resting in bed, notes/labs reviewed. i had spoken to her daughter yesterday, with full update. She is not keen to any aggressive measures, ophelia surgery. She is contemplating AND/vs hospice.She was suppose to think about it, and let us know.Will continue with supportive care for now. Patient seen/examined, resting in bed, labs reviewed. No active bleeding. GI/Surgery notes reviewed also. Patient seen/examined, resting in bed, notes/labs reviewed.No report of any active bleeding at this time. If this remains this way, will discharge back to the [facility] 2days ,or so. patient seen/examined, resting in bed, Had a code blue called earlier, and transfered to the unit, and intubated. Ct with contrast showed sub acute CELIO distribution stroke, and acute non hemorrhagic CVA. 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 Once feasible, will do red cell tagged scan., and possibly IR intervention, with Embolization of the offending vessel, depending on how far the family wants to go.For now, will continue with replacement blood transfusion. Patient seen/examined, resting in bed, labs reviewed, and stable, post transfusion of 2units PRBC. Awaiting neurology eval/REC. patient seen/examined, resting in bed, still on the vent, but awoken easily.I have reviewed the Neurologist notes. patient s record reviewed, I have spoken to neurology today, about plan of care. Patient seen/examined, resting in bed, labs/records/notes reviewed.No new issues at this time. once stable, clinically, and ok with all involved, will d/c back to the NH. Patient seen/examined, resting in bed, line problems, as per nurse, mid line to be placed.labs reviewed. Patient seen, resting in bed, labs/records reviewed. If no more active bleed, will d/c back to the NH this week, once ok with GI/Neuro. patient seen, resting in bed, d/w neuro, and pulm, peg tube needed, and ordered, will speak more to the family.once peg placed, will d/c back to the NH. patient seen, resting in bed, records/notes reviewed. PEG planned for tomorrow. Will recheck H/H tomorrow. Once peg placed, and hgb stable, and no active bleed, will d/c back to the NH. Patient seen/examined, resting in bed, records reviewed, PEG placement done. Will order new labs for the am.once feeding tube working well, will plan d/c back to the NH. 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 Objective - Constitutional Vitals: Vital Signs - 12hr 10/04/18 10/04/18 10/04/18 08:30 09:00 09:15 Temperature Temperature [ Pre-Procedure] Pulse Rate 90 88 88 Pulse Rate [ From Monitor] Pulse Rate [ Intra-Procedure ] Pulse Rate [ Post-Procedure] Pulse Rate [Pre -Procedure] Respiratory 23 22 Rate Respiratory Rate [Intra- Procedure] Respiratory Rate [Post- Procedure] Respiratory Rate [Pre- Procedure] Blood Pressure 137/52 130/35 Blood Pressure [Intra- Procedure] Blood Pressure [Post-Procedure ] Blood Pressure [Pre-Procedure] O2 Sat by Pulse 100 100 Oximetry O2 Sat by Pulse Oximetry [ Intra-Procedure ] O2 Sat by Pulse Oximetry [Post -Procedure] O2 Sat by Pulse Oximetry [Pre- Procedure] 10/04/18 10/04/18 10/04/18 09:31 10:00 10:31 Temperature Temperature [ Pre-Procedure] Pulse Rate 88 97 H 91 H Pulse Rate [ From Monitor] Pulse Rate [ Intra-Procedure ] Pulse Rate [ Post-Procedure] Pulse Rate [Pre -Procedure] Respiratory 21 30 H 25 H Rate Respiratory Rate [Intra- Procedure] Respiratory Rate [Post- Procedure] Respiratory Rate [Pre- Procedure] Blood Pressure 144/49 132/54 151/48 Blood Pressure [Intra- Procedure] Blood Pressure [Post-Procedure ] Blood Pressure [Pre-Procedure] O2 Sat by Pulse 100 100 100 Oximetry O2 Sat by Pulse Oximetry [ Intra-Procedure ] O2 Sat by Pulse Oximetry [Post -Procedure] O2 Sat by Pulse Oximetry [Pre- Procedure] 10/04/18 10/04/18 10/04/18 11:24 11:30 12:00 Temperature 98.8 F Temperature [ Pre-Procedure] Pulse Rate 94 H 92 H Pulse Rate [ 92 H From Monitor] Pulse Rate [ Intra-Procedure ] Pulse Rate [ Post-Procedure] Pulse Rate [Pre -Procedure] Respiratory 21 24 24 Rate Respiratory Rate [Intra- Procedure] Respiratory Rate [Post- Procedure] Respiratory Rate [Pre- Procedure] Blood Pressure 151/48 151/56 Blood Pressure [Intra- Procedure] Blood Pressure [Post-Procedure ] Blood Pressure [Pre-Procedure] O2 Sat by Pulse 100 100 Oximetry O2 Sat by Pulse Oximetry [ Intra-Procedure ] O2 Sat by Pulse Oximetry [Post -Procedure] O2 Sat by Pulse Oximetry [Pre- Procedure] 10/04/18 10/04/18 10/04/18 12:01 12:16 12:19 Temperature 98.8 F 98.8 F Temperature [ Pre-Procedure] Pulse Rate 100 H 95 H 95 H Pulse Rate [ From Monitor] Pulse Rate [ Intra-Procedure ] Pulse Rate [ Post-Procedure] Pulse Rate [Pre -Procedure] Respiratory 23 21 21 Rate Respiratory Rate [Intra- Procedure] Respiratory Rate [Post- Procedure] Respiratory Rate [Pre- Procedure] Blood Pressure 185/65 172/59 172/59 Blood Pressure [Intra- Procedure] Blood Pressure [Post-Procedure ] Blood Pressure [Pre-Procedure] O2 Sat by Pulse 100 100 100 Oximetry O2 Sat by Pulse Oximetry [ Intra-Procedure ] O2 Sat by Pulse Oximetry [Post -Procedure] O2 Sat by Pulse Oximetry [Pre- Procedure] 10/04/18 10/04/18 10/04/18 12:30 13:01 13:30 Temperature Temperature [ Pre-Procedure] Pulse Rate 97 H 93 H 102 H Pulse Rate [ From Monitor] Pulse Rate [ Intra-Procedure ] Pulse Rate [ Post-Procedure] Pulse Rate [Pre -Procedure] Respiratory 25 H 24 36 H Rate Respiratory Rate [Intra- Procedure] Respiratory Rate [Post- Procedure] Respiratory Rate [Pre- Procedure] Blood Pressure 157/67 183/68 135/55 Blood Pressure [Intra- Procedure] Blood Pressure [Post-Procedure ] Blood Pressure [Pre-Procedure] O2 Sat by Pulse 100 100 96 Oximetry O2 Sat by Pulse Oximetry [ Intra-Procedure ] O2 Sat by Pulse Oximetry [Post -Procedure] O2 Sat by Pulse Oximetry [Pre- Procedure] 10/04/18 10/04/18 10/04/18 13:35 13:40 13:50 Temperature Temperature [ 98.8 F Pre-Procedure] Pulse Rate 102 H 102 H Pulse Rate [ From Monitor] Pulse Rate [ 90 Intra-Procedure ] Pulse Rate [ 101 H Post-Procedure] Pulse Rate [Pre 97 H -Procedure] Respiratory 25 H 25 H Rate Respiratory 30 H Rate [Intra- Procedure] Respiratory 32 H Rate [Post- Procedure] Respiratory 28 H Rate [Pre- Procedure] Blood Pressure 129/44 129/44 Blood Pressure 145/50 [Intra- Procedure] Blood Pressure 136/52 [Post-Procedure ] Blood Pressure 149/54 [Pre-Procedure] O2 Sat by Pulse 99 99 Oximetry O2 Sat by Pulse 99 Oximetry [ Intra-Procedure ] O2 Sat by Pulse 100 Oximetry [Post -Procedure] O2 Sat by Pulse 100 Oximetry [Pre- Procedure] 10/04/18 10/04/18 10/04/18 14:00 14:17 14:30 Temperature Temperature [ Pre-Procedure] Pulse Rate 95 H 93 H 94 H Pulse Rate [ From Monitor] Pulse Rate [ Intra-Procedure ] Pulse Rate [ Post-Procedure] Pulse Rate [Pre -Procedure] Respiratory 30 H 32 H Rate Respiratory Rate [Intra- Procedure] Respiratory Rate [Post- Procedure] Respiratory Rate [Pre- Procedure] Blood Pressure 149/47 169/49 121/47 Blood Pressure [Intra- Procedure] Blood Pressure [Post-Procedure ] Blood Pressure [Pre-Procedure] O2 Sat by Pulse 100 99 Oximetry O2 Sat by Pulse Oximetry [ Intra-Procedure ] O2 Sat by Pulse Oximetry [Post -Procedure] O2 Sat by Pulse Oximetry [Pre- Procedure] 10/04/18 10/04/18 10/04/18 15:00 15:30 16:00 Temperature 98.9 F Temperature [ Pre-Procedure] Pulse Rate 93 H 93 H 93 H Pulse Rate [ 92 H From Monitor] Pulse Rate [ Intra-Procedure ] Pulse Rate [ Post-Procedure] Pulse Rate [Pre -Procedure] Respiratory 31 H 29 H 24 Rate Respiratory Rate [Intra- Procedure] Respiratory Rate [Post- Procedure] Respiratory Rate [Pre- Procedure] Blood Pressure 136/51 146/56 158/59 Blood Pressure [Intra- Procedure] Blood Pressure [Post-Procedure ] Blood Pressure [Pre-Procedure] O2 Sat by Pulse 99 100 100 Oximetry O2 Sat by Pulse Oximetry [ Intra-Procedure ] O2 Sat by Pulse Oximetry [Post -Procedure] O2 Sat by Pulse Oximetry [Pre- Procedure] 10/04/18 10/04/18 10/04/18 16:30 16:33 17:00 Temperature Temperature [ Pre-Procedure] Pulse Rate 95 H 95 H 104 H Pulse Rate [ From Monitor] Pulse Rate [ Intra-Procedure ] Pulse Rate [ Post-Procedure] Pulse Rate [Pre -Procedure] Respiratory 28 H 37 H Rate Respiratory Rate [Intra- Procedure] Respiratory Rate [Post- Procedure] Respiratory Rate [Pre- Procedure] Blood Pressure 172/63 172/63 123/51 Blood Pressure [Intra- Procedure] Blood Pressure [Post-Procedure ] Blood Pressure [Pre-Procedure] O2 Sat by Pulse 100 100 Oximetry O2 Sat by Pulse Oximetry [ Intra-Procedure ] O2 Sat by Pulse Oximetry [Post -Procedure] O2 Sat by Pulse Oximetry [Pre- Procedure] 10/04/18 10/04/18 17:30 18:00 Temperature Temperature [ Pre-Procedure] Pulse Rate 104 H 105 H Pulse Rate [ From Monitor] Pulse Rate [ Intra-Procedure ] Pulse Rate [ Post-Procedure] Pulse Rate [Pre -Procedure] Respiratory 34 H 27 H Rate Respiratory Rate [Intra- Procedure] Respiratory Rate [Post- Procedure] Respiratory Rate [Pre- Procedure] Blood Pressure 145/55 140/52 Blood Pressure [Intra- Procedure] Blood Pressure [Post-Procedure ] Blood Pressure [Pre-Procedure] O2 Sat by Pulse 100 100 Oximetry O2 Sat by Pulse Oximetry [ Intra-Procedure ] O2 Sat by Pulse Oximetry [Post -Procedure] O2 Sat by Pulse Oximetry [Pre- Procedure] General appearance: Present: no acute distress - EENT Eyes: PERRL, EOM intact ENT: hearing intact, clear oral mucosa Ears: bilateral: normal - Neck Neck: supple, normal ROM - Respiratory Respiratory effort: normal Respiratory: bilateral: CTA - Breasts Breasts: deferred - Cardiovascular Rhythm: regular Heart Sounds: Present: S1 & S2. Absent: gallop, rub Extremities: pulses intact, No edema, normal color, Full ROM - Gastrointestinal General gastrointestinal: Present: soft, non-tender, non-distended, normal bowel sounds Rectal Exam: deferred - Genitourinary Female genitourinary: deferred, normal - Integumentary Integumentary: clear, warm, dry - Musculoskeletal Musculoskeletal: 1, strength equal bilaterally - Neurologic Neurologic: moves all extremities - Labs CBC & Chem 7: 10/02/18 16:17 10/03/18 20:58 Labs: Abnormal lab results 10/03/18 10/03/18 10/03/18 Range/Units 17:09 20:58 23:37 Chloride 111.2 H (98-107) mmol/L BUN 25 H (7-17) mg/dL Creatinine 0.6 L (0.7-1.2) mg/dL Glucose 223 H (65-100) mg/dL POC Glucose 256 H 265 H (70-105) 10/04/18 10/04/18 10/04/18 Range/Units 05:20 12:01 18:12 Chloride (98-107) mmol/L BUN (7-17) mg/dL Creatinine (0.7-1.2) mg/dL Glucose (65-100) mg/dL POC Glucose 245 H 222 H 214 H (70-105)
[2018-10-04] MEDS: ARICEPT PO SCH (21:04)
[2018-10-04] MEDS ORDERED: LANTUS SUB-Q SCH (22:00)
[2018-10-05] MEDS: DECADRON IV SCH (06:34)
[2018-10-05] MEDS: ISORDIL TITRADOSE PO SCH (06:34)
[2018-10-05] MEDS: HumuLIN R SUB-Q SCH (06:35)
[2018-10-05 07:59] LABS: Basophils % (Auto) 0.1 % (0.0-1.8); Lymphocytes # (Auto) 0.4 K/mm3 (1.2-5.4); Lymphocytes % (Auto) 5.4 % (13.4-35.0); Mean Corpuscular HGB Conc 33 % (30-34); Mean Corpuscular Volume 97 fl (79-97); Monocytes # (Auto) 0.4 K/mm3 (0.0-0.8); Monocytes % (Auto) 5.6 % (0.0-7.3); Platelet Count 267 K/mm3 (140-440); Red Blood Count 2.48 M/mm3 (3.65-5.03); Red Cell Distribution Width 15.1 % (13.2-15.2)
[2018-10-05 08:28] LABS: Alanine Aminotransferase 8 units/L (7-56); Albumin 2.5 g/dL (3.9-5); BUN/Creatinine Ratio 44; Blood Urea Nitrogen 31 mg/dL (7-17); Calcium 9.1 mg/dL (8.4-10.2); Hemolysis Index 3
[2018-10-05] MEDS: PREVACID SOLUTAB FEEDTUBE SCH (11:43)
--- NOTE | 2018-10-05 12:21 | Progress Note ---
Assessment and Plan Acute hypoxemic respiratory failure. Acute gastrointestinal bleed. Acute encephalopathy. History of coronary artery disease. History of gastroesophageal reflux disease. History of diabetes. Hypertension. History of a prior cerebrovascular accident. Arthritis. Dementia - s/p PEG yesterday - continue prn NT suction to help clear oropharynx - complete dexamethasone taper - continue aspiration precautions - continue albuterol prn - continue BIPAP support scheduled qhs with prn daytime use - continue bronchodilators prn with pulmonary hygiene per RT - continue supplemental oxygen as needed to keep O2 sat's > 90% - continue accuchecks with glycemic control per SSI for target blood glucose <180mg/dL - Agitation management - Prevention of delirium, maintenance of sleep-wake cycle - neurolology evaluation ongoing - VTE and Stress ulcer prophylaxis - continue other care per attending / other consultants ... re-evaluate in am & prn CONDITION: HIGH RISK PROGNOSIS: GUARDED CODE STATUS: FULL CODE I have spent ( >35 ) minutes with the patient w/ >50% of the time spent counseling and/or coordinating care for this patient. Counseling topics and/or how time was spent coordinating patient's care is outlined in the impression and plan above. Subjective Date of service: 10/05/18 Principal diagnosis: Ac hypoxemic resp failure; Acute CVA; Ac GI bleed; Ac encephalopathy; DM II Interval history: Patient is seen today for: Acute hypoxemic respiratory failure; Acute CVA; Acute gastrointestinal bleed; Acute encephalopathy; CAD; GERD; DM II; HTN; Arthritis; Dementia. Seen and examined at bedside; 24hour events reviewed; nursing and respiratory care staff consulted; no adverse overnight events reported to me; resting peacefully in bed; remains lethargic; tolerated BIPAP overnight; to transfer to [facility] today Objective Vital Signs - 12hr 10/05/18 10/05/18 10/05/18 00:30 01:00 01:30 Temperature Pulse Rate 78 79 73 Pulse Rate [ From Monitor] Respiratory 24 21 22 Rate Blood Pressure 143/48 156/61 164/59 O2 Sat by Pulse 100 100 100 Oximetry 10/05/18 10/05/18 10/05/18 02:00 02:30 03:00 Temperature Pulse Rate 79 81 75 Pulse Rate [ From Monitor] Respiratory 21 20 20 Rate Blood Pressure 105/32 154/60 150/44 O2 Sat by Pulse 100 100 100 Oximetry 10/05/18 10/05/18 10/05/18 03:30 04:00 04:30 Temperature 97.4 F L Pulse Rate 75 71 77 Pulse Rate [ 71 From Monitor] Respiratory 36 H 20 21 Rate Blood Pressure 138/44 105/33 106/58 O2 Sat by Pulse 100 100 Oximetry 10/05/18 10/05/18 10/05/18 05:00 05:30 06:00 Temperature Pulse Rate 80 77 69 Pulse Rate [ From Monitor] Respiratory 17 19 16 Rate Blood Pressure 167/73 152/55 148/50 O2 Sat by Pulse 100 Oximetry 10/05/18 10/05/18 10/05/18 06:30 06:34 07:00 Temperature Pulse Rate 75 74 68 Pulse Rate [ From Monitor] Respiratory 15 17 Rate Blood Pressure 143/73 143/73 151/51 O2 Sat by Pulse 100 Oximetry 10/05/18 10/05/18 10/05/18 07:30 08:00 08:19 Temperature Pulse Rate 76 74 Pulse Rate [ 73 From Monitor] Respiratory 17 21 Rate Blood Pressure 111/33 152/71 O2 Sat by Pulse 100 97 Oximetry 10/05/18 10/05/18 08:30 09:00 Temperature Pulse Rate 73 74 Pulse Rate [ From Monitor] Respiratory 19 19 Rate Blood Pressure 123/57 143/54 O2 Sat by Pulse 100 100 Oximetry Constitutional: appears uncomfortable, other (elderly looking AAF, normocephalic and atraumatic with mildly increased resp effort at rest) Eyes: non-icteric ENT: oropharynx moist Neck: supple, no lymphadenopathy, no JVD, other (large neck circumference) Effort: mildly labored Ascultation: Bilateral: diminished breath sounds, rhonchi, other (upper airway transmitted sounds) Percussion: Bilateral: not dull Cardiovascular: regular rate and rhythm, murmur noted (soft systolic), other (S1,S2) Gastrointestinal: normoactive bowel sounds, soft, non-tender, non-distended Integumentary: normal Extremities: no cyanosis, no edema, pulses normal, no ischemia or petechiae, edema (trace to upper extremities bilaterally) Neurologic: pupils equal and round, other (Left hemiparesis, will squeeze with right hand intermittently) Psychiatric: other (flat affect) CBC and BMP: 10/05/18 07:26 10/05/18 07:26 ABG, PT/INR, D-dimer: ABG POC ABG pH 7.364 (7.35-7.45) 09/28/18 18:04 POC ABG pCO2 38.2 (35-45) 09/28/18 18:04 POC ABG pO2 123 (80-105) H 09/28/18 18:04 POC ABG HCO3 21.8 (22-26 mml/L) 09/28/18 18:04 POC ABG Total CO2 23 (23-27mmol/L) 09/28/18 18:04 POC ABG O2 Sat 99 09/28/18 18:04 PT/INR, D-dimer PT 13.3 Sec. (12.2-14.9) 10/02/18 16:17 INR 1.04 (0.87-1.13) 10/02/18 16:17 Abnormal lab findings: Abnormal Labs 09/19/18 09/19/18 09/19/18 15:11 15:11 16:01 WBC 3.7 L RBC 2.85 L Hgb 9.6 L Hct 28.0 L MCV 99 H MCH 34 H MCHC RDW 12.7 L Plt Count Lymph % (Auto) 41.9 H [place] % (Auto) 14.9 H Lymph # [place] # Seg Neutrophils % Seg Neuts % (Manual) Lymphocytes % (Manual) Monocytes % (Manual) Seg Neutrophils # 1.5 L Lymphocytes # (Manual) POC ABG pCO2 POC ABG pO2 Sodium Potassium Chloride 107.9 H Carbon Dioxide BUN 23 H Creatinine Glucose 191 H POC Glucose ALT Total Protein Albumin Ur Specific [place] 1.031 H Crossmatch 09/19/18 09/19/18 09/20/18 21:01 21:10 00:22 WBC RBC 2.39 L Hgb 8.1 L Hct 23.6 L MCV 99 H MCH 34 H MCHC RDW 12.5 L Plt Count Lymph % (Auto) [place] % (Auto) 9.9 H Lymph # [place] # Seg Neutrophils % Seg Neuts % (Manual) Lymphocytes % (Manual) Monocytes % (Manual) Seg Neutrophils # Lymphocytes # (Manual) POC ABG pCO2 POC ABG pO2 Sodium Potassium Chloride Carbon Dioxide BUN Creatinine Glucose POC Glucose 229 H ALT Total Protein Albumin Ur Specific [place] Crossmatch See Detail 09/20/18 09/20/18 09/20/18 06:11 06:15 08:17 WBC RBC 2.27 L Hgb 7.6 L Hct 22.4 L MCV 99 H MCH 34 H MCHC RDW 12.7 L Plt Count Lymph % (Auto) 35.1 H [place] % (Auto) 11.4 H Lymph # [place] # Seg Neutrophils % Seg Neuts % (Manual) Lymphocytes % (Manual) Monocytes % (Manual) Seg Neutrophils # Lymphocytes # (Manual) POC ABG pCO2 POC ABG pO2 Sodium Potassium Chloride Carbon Dioxide BUN Creatinine Glucose POC Glucose 246 H 253 H ALT Total Protein Albumin Ur Specific [place] Crossmatch 09/20/18 09/20/18 09/20/18 11:52 17:17 21:10 WBC RBC Hgb Hct MCV MCH MCHC RDW Plt Count Lymph % (Auto) [place] % (Auto) Lymph # [place] # Seg Neutrophils % Seg Neuts % (Manual) Lymphocytes % (Manual) Monocytes % (Manual) Seg Neutrophils # Lymphocytes # (Manual) POC ABG pCO2 POC ABG pO2 Sodium Potassium Chloride Carbon Dioxide BUN Creatinine Glucose POC Glucose 278 H 241 H 245 H ALT Total Protein Albumin Ur Specific [place] Crossmatch 09/21/18 09/21/18 09/21/18 05:15 07:43 16:35 WBC RBC 3.35 L Hgb Hct MCV MCH 33 H MCHC 35 H RDW Plt Count 134 L Lymph % (Auto) [place] % (Auto) 12.4 H Lymph # [place] # 1.0 H Seg Neutrophils % Seg Neuts % (Manual) Lymphocytes % (Manual) Monocytes % (Manual) Seg Neutrophils # Lymphocytes # (Manual) POC ABG pCO2 POC ABG pO2 Sodium Potassium Chloride Carbon Dioxide BUN Creatinine Glucose POC Glucose 278 H 237 H ALT Total Protein Albumin Ur Specific [place] Crossmatch 09/21/18 09/21/18 09/22/18 19:20 19:42 01:05 WBC RBC 2.66 L 2.43 L Hgb 8.7 L 8.0 L Hct 25.9 L D 23.4 L MCV MCH 33 H 33 H MCHC RDW Plt Count 137 L 127 L Lymph % (Auto) 12.7 L [place] % (Auto) 11.0 H Lymph # [place] # 1.1 H Seg Neutrophils % 75.8 H Seg Neuts % (Manual) Lymphocytes % (Manual) Monocytes % (Manual) Seg Neutrophils # Lymphocytes # (Manual) POC ABG pCO2 POC ABG pO2 Sodium Potassium Chloride Carbon Dioxide BUN Creatinine Glucose POC Glucose 264 H ALT Total Protein Albumin Ur Specific [place] Crossmatch 09/22/18 09/22/18 09/22/18 05:20 07:29 11:48 WBC RBC 2.43 L Hgb 8.0 L Hct 23.4 L MCV MCH 33 H MCHC RDW Plt Count 118 L Lymph % (Auto) [place] % (Auto) 14.0 H Lymph # [place] # 1.1 H Seg Neutrophils % Seg Neuts % (Manual) Lymphocytes % (Manual) Monocytes % (Manual) Seg Neutrophils # Lymphocytes # (Manual) POC ABG pCO2 POC ABG pO2 Sodium Potassium Chloride Carbon Dioxide BUN Creatinine Glucose POC Glucose 335 H 300 H ALT Total Protein Albumin Ur Specific [place] Crossmatch 09/22/18 09/22/18 09/23/18 16:55 21:04 04:52 WBC 4.4 L RBC 2.40 L Hgb 8.0 L Hct 23.4 L MCV 98 H MCH 33 H MCHC RDW Plt Count 115 L Lymph % (Auto) [place] % (Auto) 12.2 H Lymph # [place] # Seg Neutrophils % Seg Neuts % (Manual) Lymphocytes % (Manual) Monocytes % (Manual) Seg Neutrophils # Lymphocytes # (Manual) POC ABG pCO2 POC ABG pO2 Sodium Potassium Chloride Carbon Dioxide BUN Creatinine Glucose POC Glucose 340 H 285 H ALT Total Protein Albumin Ur Specific [place] Crossmatch 09/23/18 09/23/18 09/23/18 04:52 07:33 11:23 WBC RBC Hgb Hct MCV MCH MCHC RDW Plt Count Lymph % (Auto) [place] % (Auto) Lymph # [place] # Seg Neutrophils % Seg Neuts % (Manual) Lymphocytes % (Manual) Monocytes % (Manual) Seg Neutrophils # Lymphocytes # (Manual) POC ABG pCO2 POC ABG pO2 Sodium Potassium Chloride 110.6 H Carbon Dioxide BUN 19 H Creatinine Glucose 220 H POC Glucose 216 H 307 H ALT Total Protein Albumin Ur Specific [place] Crossmatch 09/23/18 09/23/18 09/24/18 16:23 20:33 06:09 WBC RBC 2.47 L Hgb 8.0 L Hct 24.8 L MCV 100 H MCH 33 H MCHC RDW Plt Count Lymph % (Auto) [place] % (Auto) 11.1 H Lymph # [place] # Seg Neutrophils % Seg Neuts % (Manual) Lymphocytes % (Manual) Monocytes % (Manual) Seg Neutrophils # Lymphocytes # (Manual) POC ABG pCO2 POC ABG pO2 Sodium Potassium Chloride Carbon Dioxide BUN Creatinine Glucose POC Glucose 361 H 261 H ALT Total Protein Albumin Ur Specific [place] Crossmatch 09/24/18 09/24/18 09/24/18 06:09 08:07 12:06 WBC RBC Hgb Hct MCV MCH MCHC RDW Plt Count Lymph % (Auto) [place] % (Auto) Lymph # [place] # Seg Neutrophils % Seg Neuts % (Manual) Lymphocytes % (Manual) Monocytes % (Manual) Seg Neutrophils # Lymphocytes # (Manual) POC ABG pCO2 POC ABG pO2 Sodium Potassium Chloride 110.8 H Carbon Dioxide BUN 18 H Creatinine Glucose 135 H POC Glucose 130 H 154 H ALT Total Protein Albumin Ur Specific [place] Crossmatch 09/24/18 09/24/18 09/25/18 16:47 20:55 06:05 WBC RBC 2.14 L Hgb 7.0 L Hct 21.1 L MCV 98 H MCH 33 H MCHC RDW Plt Count Lymph % (Auto) [place] % (Auto) 10.3 H Lymph # [place] # Seg Neutrophils % Seg Neuts % (Manual) Lymphocytes % (Manual) Monocytes % (Manual) Seg Neutrophils # Lymphocytes # (Manual) POC ABG pCO2 POC ABG pO2 Sodium Potassium Chloride Carbon Dioxide BUN Creatinine Glucose POC Glucose 190 H 233 H ALT Total Protein Albumin Ur Specific [place] Crossmatch 09/25/18 09/25/18 09/25/18 06:05 08:06 11:13 WBC RBC Hgb Hct MCV MCH MCHC RDW Plt Count Lymph % (Auto) [place] % (Auto) Lymph # [place] # Seg Neutrophils % Seg Neuts % (Manual) Lymphocytes % (Manual) Monocytes % (Manual) Seg Neutrophils # Lymphocytes # (Manual) POC ABG pCO2 POC ABG pO2 Sodium 146 H Potassium Chloride 112.6 H Carbon Dioxide BUN 20 H Creatinine Glucose 243 H POC Glucose 248 H 274 H ALT Total Protein Albumin Ur Specific [place] Crossmatch 09/25/18 09/25/18 09/25/18 14:56 15:05 22:04 WBC RBC 2.31 L Hgb 7.6 L Hct 22.5 L MCV MCH 33 H MCHC RDW Plt Count Lymph % (Auto) [place] % (Auto) Lymph # [place] # Seg Neutrophils % Seg Neuts % (Manual) Lymphocytes % (Manual) Monocytes % (Manual) Seg Neutrophils # Lymphocytes # (Manual) POC ABG pCO2 POC ABG pO2 Sodium Potassium Chloride Carbon Dioxide BUN Creatinine Glucose POC Glucose 333 H ALT Total Protein Albumin Ur Specific [place] Crossmatch See Detail 09/26/18 09/26/18 09/26/18 03:35 05:15 05:15 WBC 12.6 H RBC 3.21 L Hgb Hct MCV MCH MCHC RDW Plt Count Lymph % (Auto) 10.2 L [place] % (Auto) 11.7 H Lymph # [place] # 1.5 H Seg Neutrophils % 78.0 H Seg Neuts % (Manual) Lymphocytes % (Manual) Monocytes % (Manual) Seg Neutrophils # 9.9 H Lymphocytes # (Manual) POC ABG pCO2 33.2 L POC ABG pO2 249 H Sodium Potassium Chloride 109.2 H Carbon Dioxide BUN 20 H Creatinine Glucose 234 H POC Glucose ALT Total Protein 5.7 L Albumin 3.2 L Ur Specific [place] Crossmatch 09/26/18 09/26/18 09/26/18 11:55 17:52 23:32 WBC RBC Hgb Hct MCV MCH MCHC RDW Plt Count Lymph % (Auto) [place] % (Auto) Lymph # [place] # Seg Neutrophils % Seg Neuts % (Manual) Lymphocytes % (Manual) Monocytes % (Manual) Seg Neutrophils # Lymphocytes # (Manual) POC ABG pCO2 POC ABG pO2 Sodium Potassium Chloride Carbon Dioxide BUN Creatinine Glucose POC Glucose 288 H 292 H 266 H ALT Total Protein Albumin Ur Specific [place] Crossmatch 09/27/18 09/27/18 09/27/18 03:57 04:18 05:01 WBC RBC 3.03 L Hgb 10.0 L Hct 29.6 L MCV 98 H MCH 33 H MCHC RDW Plt Count 138 L Lymph % (Auto) 10.8 L [place] % (Auto) 14.6 H Lymph # 1.1 L [place] # 1.5 H Seg Neutrophils % 74.2 H Seg Neuts % (Manual) Lymphocytes % (Manual) Monocytes % (Manual) Seg Neutrophils # Lymphocytes # (Manual) POC ABG pCO2 POC ABG pO2 Sodium Potassium 3.5 L Chloride 111.3 H Carbon Dioxide BUN Creatinine Glucose 220 H POC Glucose 250 H ALT 6 L Total Protein 5.4 L Albumin 2.9 L Ur Specific [place] Crossmatch 09/27/18 09/27/18 09/27/18 05:21 11:59 14:29 WBC RBC Hgb Hct MCV MCH MCHC RDW Plt Count Lymph % (Auto) [place] % (Auto) Lymph # [place] # Seg Neutrophils % Seg Neuts % (Manual) Lymphocytes % (Manual) Monocytes % (Manual) Seg Neutrophils # Lymphocytes # (Manual) POC ABG pCO2 31.1 L POC ABG pO2 148 H 118 H Sodium Potassium Chloride Carbon Dioxide BUN Creatinine Glucose POC Glucose 240 H ALT Total Protein Albumin Ur Specific [place] Crossmatch 09/27/18 09/27/18 09/28/18 18:16 23:26 03:57 WBC 12.7 H RBC 3.05 L Hgb 10.0 L Hct 30.0 L MCV 98 H MCH 33 H MCHC RDW 15.5 H Plt Count Lymph % (Auto) 9.5 L [place] % (Auto) 12.3 H Lymph # [place] # 1.6 H Seg Neutrophils % 77.6 H Seg Neuts % (Manual) Lymphocytes % (Manual) Monocytes % (Manual) Seg Neutrophils # 9.9 H Lymphocytes # (Manual) POC ABG pCO2 POC ABG pO2 Sodium Potassium Chloride Carbon Dioxide BUN Creatinine Glucose POC Glucose 266 H 242 H ALT Total Protein Albumin Ur Specific [place] Crossmatch 09/28/18 09/28/18 09/28/18 03:57 04:46 05:55 WBC RBC Hgb Hct MCV MCH MCHC RDW Plt Count Lymph % (Auto) [place] % (Auto) Lymph # [place] # Seg Neutrophils % Seg Neuts % (Manual) Lymphocytes % (Manual) Monocytes % (Manual) Seg Neutrophils # Lymphocytes # (Manual) POC ABG pCO2 POC ABG pO2 136 H Sodium Potassium Chloride 109.9 H Carbon Dioxide 21 L BUN Creatinine 0.6 L Glucose 245 H POC Glucose 270 H ALT Total Protein 5.7 L Albumin 2.8 L Ur Specific [place] Crossmatch 09/28/18 09/28/18 09/28/18 11:51 15:11 17:46 WBC RBC Hgb Hct MCV MCH MCHC RDW Plt Count Lymph % (Auto) [place] % (Auto) Lymph # [place] # Seg Neutrophils % Seg Neuts % (Manual) Lymphocytes % (Manual) Monocytes % (Manual) Seg Neutrophils # Lymphocytes # (Manual) POC ABG pCO2 32.6 L POC ABG pO2 116 H Sodium Potassium Chloride Carbon Dioxide BUN Creatinine Glucose POC Glucose 335 H 261 H ALT Total Protein Albumin Ur Specific [place] Crossmatch 09/28/18 09/28/18 09/29/18 18:04 23:23 04:00 WBC 11.4 H RBC 2.62 L Hgb 8.7 L Hct 25.4 L MCV MCH 33 H MCHC RDW Plt Count Lymph % (Auto) 7.8 L [place] % (Auto) 12.4 H Lymph # 0.9 L [place] # 1.4 H Seg Neutrophils % 79.7 H Seg Neuts % (Manual) Lymphocytes % (Manual) Monocytes % (Manual) Seg Neutrophils # 9.1 H Lymphocytes # (Manual) POC ABG pCO2 POC ABG pO2 123 H Sodium Potassium Chloride Carbon Dioxide BUN Creatinine Glucose POC Glucose 209 H ALT Total Protein Albumin Ur Specific [place] Crossmatch 09/29/18 09/29/18 09/29/18 04:00 05:18 11:49 WBC RBC Hgb Hct MCV MCH MCHC RDW Plt Count Lymph % (Auto) [place] % (Auto) Lymph # [place] # Seg Neutrophils % Seg Neuts % (Manual) Lymphocytes % (Manual) Monocytes % (Manual) Seg Neutrophils # Lymphocytes # (Manual) POC ABG pCO2 POC ABG pO2 Sodium Potassium Chloride 109.7 H Carbon Dioxide BUN Creatinine Glucose 176 H POC Glucose 210 H 255 H ALT 6 L Total Protein 5.5 L Albumin 2.7 L Ur Specific [place] Crossmatch 09/29/18 09/29/18 09/30/18 18:14 23:38 05:00 WBC RBC Hgb Hct MCV MCH MCHC RDW Plt Count Lymph % (Auto) [place] % (Auto) Lymph # [place] # Seg Neutrophils % Seg Neuts % (Manual) Lymphocytes % (Manual) Monocytes % (Manual) Seg Neutrophils # Lymphocytes # (Manual) POC ABG pCO2 POC ABG pO2 Sodium Potassium Chloride Carbon Dioxide 20 L BUN 30 H Creatinine Glucose 307 H POC Glucose 410 H 280 H ALT Total Protein 5.7 L Albumin 2.5 L Ur Specific [place] Crossmatch 09/30/18 09/30/18 09/30/18 05:36 06:41 11:34 WBC RBC 2.72 L Hgb 8.9 L Hct 27.1 L MCV 100 H MCH 33 H MCHC RDW 15.3 H Plt Count Lymph % (Auto) [place] % (Auto) Lymph # [place] # Seg Neutrophils % Seg Neuts % (Manual) 80.0 H Lymphocytes % (Manual) 13.0 L Monocytes % (Manual) Seg Neutrophils # Lymphocytes # (Manual) 1.1 L POC ABG pCO2 POC ABG pO2 Sodium Potassium Chloride Carbon Dioxide BUN Creatinine Glucose POC Glucose 302 H 318 H ALT Total Protein Albumin Ur Specific [place] Crossmatch 09/30/18 09/30/18 10/01/18 17:50 23:53 03:16 WBC RBC 2.66 L Hgb 8.7 L Hct 25.9 L MCV MCH 33 H MCHC RDW Plt Count Lymph % (Auto) 10.2 L [place] % (Auto) 14.0 H Lymph # 0.9 L [place] # 1.2 H Seg Neutrophils % 75.4 H Seg Neuts % (Manual) Lymphocytes % (Manual) Monocytes % (Manual) Seg Neutrophils # Lymphocytes # (Manual) POC ABG pCO2 POC ABG pO2 Sodium Potassium Chloride Carbon Dioxide BUN Creatinine Glucose POC Glucose 244 H 236 H ALT Total Protein Albumin Ur Specific [place] Crossmatch 10/01/18 10/01/18 10/01/18 03:16 05:19 12:33 WBC RBC Hgb Hct MCV MCH MCHC RDW Plt Count Lymph % (Auto) [place] % (Auto) Lymph # [place] # Seg Neutrophils % Seg Neuts % (Manual) Lymphocytes % (Manual) Monocytes % (Manual) Seg Neutrophils # Lymphocytes # (Manual) POC ABG pCO2 POC ABG pO2 Sodium Potassium Chloride 111.4 H Carbon Dioxide BUN 31 H Creatinine Glucose 217 H POC Glucose 278 H 304 H ALT Total Protein 5.6 L Albumin 2.4 L Ur Specific [place] Crossmatch 10/01/18 10/01/18 10/02/18 18:18 23:12 05:13 WBC RBC Hgb Hct MCV MCH MCHC RDW Plt Count Lymph % (Auto) [place] % (Auto) Lymph # [place] # Seg Neutrophils % Seg Neuts % (Manual) Lymphocytes % (Manual) Monocytes % (Manual) Seg Neutrophils # Lymphocytes # (Manual) POC ABG pCO2 POC ABG pO2 Sodium Potassium Chloride Carbon Dioxide BUN Creatinine Glucose POC Glucose 212 H 212 H 207 H ALT Total Protein Albumin Ur Specific [place] Crossmatch 10/02/18 10/02/18 10/02/18 11:37 16:17 16:17 WBC RBC 2.35 L Hgb 7.6 L Hct 23.1 L MCV 98 H MCH MCHC RDW 15.4 H Plt Count Lymph % (Auto) [place] % (Auto) Lymph # [place] # Seg Neutrophils % Seg Neuts % (Manual) 75.0 H Lymphocytes % (Manual) Monocytes % (Manual) 10.0 H Seg Neutrophils # Lymphocytes # (Manual) 0.9 L POC ABG pCO2 POC ABG pO2 Sodium Potassium Chloride 111.3 H Carbon Dioxide BUN 31 H Creatinine 0.6 L Glucose 201 H POC Glucose 227 H ALT Total Protein 5.2 L Albumin 2.4 L Ur Specific [place] Crossmatch 10/02/18 10/02/18 10/03/18 16:52 23:58 05:19 WBC RBC Hgb Hct MCV MCH MCHC RDW Plt Count Lymph % (Auto) [place] % (Auto) Lymph # [place] # Seg Neutrophils % Seg Neuts % (Manual) Lymphocytes % (Manual) Monocytes % (Manual) Seg Neutrophils # Lymphocytes # (Manual) POC ABG pCO2 POC ABG pO2 Sodium Potassium Chloride Carbon Dioxide BUN Creatinine Glucose POC Glucose 222 H 134 H 160 H ALT Total Protein Albumin Ur Specific [place] Crossmatch 10/03/18 10/03/18 10/03/18 12:02 17:09 20:58 WBC RBC Hgb Hct MCV MCH MCHC RDW Plt Count Lymph % (Auto) [place] % (Auto) Lymph # [place] # Seg Neutrophils % Seg Neuts % (Manual) Lymphocytes % (Manual) Monocytes % (Manual) Seg Neutrophils # Lymphocytes # (Manual) POC ABG pCO2 POC ABG pO2 Sodium Potassium Chloride 111.2 H Carbon Dioxide BUN 25 H Creatinine 0.6 L Glucose 223 H POC Glucose 208 H 256 H ALT Total Protein Albumin Ur Specific [place] Crossmatch 10/03/18 10/04/18 10/04/18 23:37 05:20 12:01 WBC RBC Hgb Hct MCV MCH MCHC RDW Plt Count Lymph % (Auto) [place] % (Auto) Lymph # [place] # Seg Neutrophils % Seg Neuts % (Manual) Lymphocytes % (Manual) Monocytes % (Manual) Seg Neutrophils # Lymphocytes # (Manual) POC ABG pCO2 POC ABG pO2 Sodium Potassium Chloride Carbon Dioxide BUN Creatinine Glucose POC Glucose 265 H 245 H 222 H ALT Total Protein Albumin Ur Specific [place] Crossmatch 10/04/18 10/04/18 10/05/18 18:12 23:10 05:33 WBC RBC Hgb Hct MCV MCH MCHC RDW Plt Count Lymph % (Auto) [place] % (Auto) Lymph # [place] # Seg Neutrophils % Seg Neuts % (Manual) Lymphocytes % (Manual) Monocytes % (Manual) Seg Neutrophils # Lymphocytes # (Manual) POC ABG pCO2 POC ABG pO2 Sodium Potassium Chloride Carbon Dioxide BUN Creatinine Glucose POC Glucose 214 H 279 H 280 H ALT Total Protein Albumin Ur Specific [place] Crossmatch 10/05/18 10/05/18 07:26 07:26 WBC RBC 2.48 L Hgb 8.0 L Hct 24.0 L MCV MCH MCHC RDW Plt Count Lymph % (Auto) 5.4 L [place] % (Auto) Lymph # 0.4 L [place] # Seg Neutrophils % 88.9 H Seg Neuts % (Manual) Lymphocytes % (Manual) Monocytes % (Manual) Seg Neutrophils # Lymphocytes # (Manual) POC ABG pCO2 POC ABG pO2 Sodium Potassium Chloride 108.6 H Carbon Dioxide BUN 31 H Creatinine Glucose 290 H POC Glucose ALT Total Protein 5.9 L Albumin 2.5 L Ur Specific [place] Crossmatch Chest x-ray: pending Allied health notes reviewed: nursing
[2018-10-05 17:23] VITALS: BP 148/42
--- NOTE | 2018-10-05 20:22 | Discharge Summary ---
Providers - Providers Date of Admission: 09/19/18 16:51 Date of discharge: 10/05/18 Attending physician: VI CARLSON 09/19/18 15:52 Consult to Physician [CONS] Urgent Comment: DR DWAINE ELAM W/DR SPENCER @1600 Consulting Provider: CARMELA SPENCER Physician Instructions: Reason For Exam: lgib 09/21/18 12:34 Consult to Physician [CONS] Routine Comment: Consulting Provider: ARLET PHOENIX Physician Instructions: consult surgery Reason For Exam: GI bleed 09/24/18 10:05 Speech Therapy Evaluation and Treat [CONS] Routine Reason For Exam: evaluation for diet 09/25/18 15:05 Consult to Physician [CONS] Routine Comment: Consulting Provider: TARA GUERRIER Physician Instructions: Reason For Exam: respiratory failure 09/25/18 15:39 Consult to Dietitian/Nutrition [CONS] Routine Physician Instructions: Reason For Exam: Reason for Consult: Evaluate nutritional intake 09/25/18 17:32 Consult to Physician [CONS] Stat Comment: Consulting Provider: VI CARLSON Physician Instructions: Reason For Exam: Possible Stroke 09/26/18 09:57 Consult to Physician [CONS] Routine Comment: Consulting Provider: KALEB OBANDO Physician Instructions: Reason For Exam: CVA 09/26/18 13:45 Consult to Dietitian/Nutrition [CONS] Routine Physician Instructions: Reason For Exam: Reason for Consult: Write/Manage Tube Feeding 09/30/18 15:01 PICC Line Insertion [Consult to PICC Line RN] [CONS] Urgent Reason For Exam: IV access Type Line:: Midline 10/02/18 15:03 Consult to Physician [CONS] Routine Comment: Consulting Provider: CARMELA SPENCER Physician Instructions: Reason For Exam: PEG tube placement. 10/03/18 08:21 Consult to Physician [CONS] Routine Comment: Consulting Provider: CARMELA SPENCER Physician Instructions: Reason For Exam: oropharyngeal dysphagia, PEG placement Primary care physician: DR CARLSON Hospitalization Reason for admission: CVA Condition: Fair Hospital course: Patient presented to to the ER from the [place] after ill feeling, found to have GI bleed, transfused with PRBC, then later had CVA, and moved to [facility] ICU. She was scopped by GI, and had several units of PRBc.She had a peg tube placement, and needed placement to an LTAC, where she was sent to after discharged. 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 Absent: rub, click - Extremities Extremities: pulses symmetrical, No edema Peripheral Pulses: within normal limits - Abdominal General gastrointestinal: Present: soft, non-tender, non-distended, normal bowel sounds Female genitourinary: Present: deferred - Rectal Rectal Exam: deferred - Integumentary Integumentary: Present: clear, warm, dry - Psychiatric Psychiatric: intact judgment & insight - Neurologic Neurologic: moves all extremities Plan Activity: fall precautions Diet: diabetic (patient dicharged, to the LTAC at [facility].) Follow up with: VI CARLSON [Other] - 7 Days Forms: Accompanied Note
[2018-10-05] MEDS ORDERED: DECADRON IV SCH (22:00)
--- NOTE | 2018-10-05 22:28 | Gastroenterology Progress Note ---
Assessment and Plan PEG is in good position without complications, may use for feeds, please call back for any questions or concerns - Patient Problems (1) CVA (cerebral vascular accident) Status: Chronic Qualifiers: Precerebral and cerebral artery: anterior cerebral artery (2) Dementia Status: Chronic Qualifiers: Alzheimer's disease onset: unspecified onset Dementia behavioral disturb ance: without behavioral disturbance Subjective Date of service: 10/05/18 (pt seen at about 9:45AM) Principal diagnosis: Ac hypoxemic resp failure; Acute CVA; Ac GI bleed; Ac encephalopathy; DM II Interval history: Post PEG check, no issues related to PEG placement overnight Objective - Constitutional Vitals: Temp Pulse Resp BP Pulse Ox 97.4 F L 71 21 148/42 100 10/05/18 04:00 10/05/18 16:30 10/05/18 16:30 10/05/18 16:30 10/05/18 16:30 General appearance: no acute distress - Gastrointestinal General gastrointestinal: Present: other (PEG in place, abd soft, +bs, no cellulitis, bumper with appropriate amount of slight give) - Labs CBC & Chem 7: 10/05/18 07:26 10/05/18 07:26 Labs: Laboratory Results - last 24 hr 10/04/18 10/05/18 10/05/18 23:10 05:33 07:26 WBC 7.0 RBC 2.48 L Hgb 8.0 L Hct 24.0 L MCV 97 MCH 32 MCHC 33 RDW 15.1 Plt Count 267 Lymph % (Auto) 5.4 L Geary % (Auto) 5.6 Eos % (Auto) 0.0 Baso % (Auto) 0.1 Lymph # 0.4 L Geary # 0.4 Eos # 0.0 Baso # 0.0 Seg Neutrophils % 88.9 H Seg Neutrophils # 6.2 Sodium Potassium Chloride Carbon Dioxide Anion Gap BUN Creatinine Estimated GFR BUN/Creatinine Ratio Glucose POC Glucose 279 H 280 H Calcium Total Bilirubin AST ALT Alkaline Phosphatase Total Protein Albumin Albumin/Globulin Ratio 10/05/18 07:26 WBC RBC Hgb Hct MCV MCH MCHC RDW Plt Count Lymph % (Auto) Geary % (Auto) Eos % (Auto) Baso % (Auto) Lymph # Geary # Eos # Baso # Seg Neutrophils % Seg Neutrophils # Sodium 143 Potassium 4.8 Chloride 108.6 H Carbon Dioxide 24 Anion Gap 15 BUN 31 H Creatinine 0.7 Estimated GFR > 60 BUN/Creatinine Ratio 44 Glucose 290 H POC Glucose Calcium 9.1 Total Bilirubin 0.30 AST 15 ALT 8 Alkaline Phosphatase 61 Total Protein 5.9 L Albumin 2.5 L Albumin/Globulin Ratio 0.7
[2018-10-07] MEDS ORDERED: DECADRON IV SCH (10:00)
== END 2018-10-05 16:50 | DRG 377 ==
LOC: ED 14:12 → 4A 16:51 → CC1 09-25 14:39
PROVIDERS: ADMIT Internal Medicine Hematology & Oncology; ATTEND Internal Medicine Hematology & Oncology
PROC: 30233N1 Transfusion of Nonautologous Red Blood Cells into Peripheral Vein, Percutaneous Approach (ICD-10-PCS; 2018-09-20)
PROC: B44LZZZ Ultrasonography of Femoral Artery (ICD-10-PCS; 2018-09-21)
PROC: B4141ZZ Fluoroscopy of Superior Mesenteric Artery using Low Osmolar Contrast (ICD-10-PCS; 2018-09-21)
PROC: B41J1ZZ Fluoroscopy of Other Lower Arteries using Low Osmolar Contrast (ICD-10-PCS; 2018-09-21)
PROC: 0DJ08ZZ Inspection of Upper Intestinal Tract, Via Natural or Artificial Opening Endoscopic (ICD-10-PCS; 2018-09-21)
PROC: 0DJD8ZZ Inspection of Lower Intestinal Tract, Via Natural or Artificial Opening Endoscopic (ICD-10-PCS; 2018-09-21)
PROC: 5A1945Z Respiratory Ventilation, 24-96 Consecutive Hours (ICD-10-PCS; principal; 2018-09-25)
PROC: 0BH17EZ Insertion of Endotracheal Airway into Trachea, Via Natural or Artificial Opening (ICD-10-PCS; 2018-09-25)
PROC: 05HY33Z Insertion of Infusion Device into Upper Vein, Percutaneous Approach (ICD-10-PCS; 2018-09-25)
PROC: B543ZZA Ultrasonography of Right Jugular Veins, Guidance (ICD-10-PCS; 2018-09-25)
PROC: 4A033R1 Measurement of Arterial Saturation, Peripheral, Percutaneous Approach (ICD-10-PCS; 2018-09-25)
PROC: 5A09357 Assistance with Respiratory Ventilation, Less than 24 Consecutive Hours, Continuous Positive Airway Pressure (ICD-10-PCS; 2018-09-28)
PROC: 5A09357 Assistance with Respiratory Ventilation, Less than 24 Consecutive Hours, Continuous Positive Airway Pressure (ICD-10-PCS; 2018-09-29)
PROC: 05HY33Z Insertion of Infusion Device into Upper Vein, Percutaneous Approach (ICD-10-PCS; 2018-09-30)
PROC: 5A09357 Assistance with Respiratory Ventilation, Less than 24 Consecutive Hours, Continuous Positive Airway Pressure (ICD-10-PCS; 2018-09-30)
PROC: 5A09357 Assistance with Respiratory Ventilation, Less than 24 Consecutive Hours, Continuous Positive Airway Pressure (ICD-10-PCS; 2018-10-01)
PROC: 5A09357 Assistance with Respiratory Ventilation, Less than 24 Consecutive Hours, Continuous Positive Airway Pressure (ICD-10-PCS; 2018-10-02)
PROC: 5A09357 Assistance with Respiratory Ventilation, Less than 24 Consecutive Hours, Continuous Positive Airway Pressure (ICD-10-PCS; 2018-10-03)
PROC: 0DH63UZ Insertion of Feeding Device into Stomach, Percutaneous Approach (ICD-10-PCS; 2018-10-04)
PROC: 5A09357 Assistance with Respiratory Ventilation, Less than 24 Consecutive Hours, Continuous Positive Airway Pressure (ICD-10-PCS; 2018-10-04)
DX: K57.91 Diverticulosis of intestine, part unspecified, without perforation or abscess with bleeding (principal); J96.01 Acute respiratory failure with hypoxia; I63.9 Cerebral infarction, unspecified; G93.40 Encephalopathy, unspecified; F03.90 Unspecified dementia, unspecified severity, without behavioral disturbance, psychotic disturbance, mood disturbance, and anxiety; D64.9 Anemia, unspecified; E11.9 Type 2 diabetes mellitus without complications; K26.9 Duodenal ulcer, unspecified as acute or chronic, without hemorrhage or perforation; I25.10 Atherosclerotic heart disease of native coronary artery without angina pectoris; I10 Essential (primary) hypertension; K21.9 Gastro-esophageal reflux disease without esophagitis; M19.90 Unspecified osteoarthritis, unspecified site; K29.40 Chronic atrophic gastritis without bleeding; Z95.5 Presence of coronary angioplasty implant and graft; I25.2 Old myocardial infarction; Z90.710 Acquired absence of both cervix and uterus; Z88.6 Allergy status to analgesic agent; Z88.5 Allergy status to narcotic agent; Z79.899 Other long term (current) drug therapy
CPT/HCPCS: 31720; 36245; 36415; 36430; 36600; 51701; 70450; 71045; 74018; 74174; 75726; 80048; 80053; 80061; 81001; 82140; 82271; 82550; 82803; 82962; 83735; 85007; 85014; 85018; 85025; 85027; 85610; 85730; 86140; 86850; 86900; 86901; 86920; 87070; 87086; 87205; 93005; 93010; 94002; 94003; 94640; 94644; 94660; 94667; 94668; 94760; 96360; G0378; A9270-GY; C1760; C1769; C1887; C9113; J0360; J0690; J1100; J1200; J1644; J1815; J2250; J2270; J2704; J3010; J3246; J7030; J7040; J7050; P9016; Q9967

== ENCOUNTER 2018-11-30 07:27 | Emergency (ER) | payer MEDICARE ==
--- NOTE | 2018-11-30 07:37 | Emergency Department Report ---
ED CPR HPI - General Stated Complaint: CARDIAC ARREST Time Seen by Provider: 11/30/18 07:33 Limitations: Other (patient condition) - History of Present Illness Initial Comments: EMS reports witnessed arrest at home. Reports total downtime approximately 25 minutes. Reports multiple rounds of EPI administered enroute. Reports patient asystole on the monitor. - Related Data Home Medications Medication Instructions Recorded Confirmed Last Taken Acetaminophen [Acetaminophen TAB] 650 mg PO Q4HR PRN 09/19/18 09/19/18 Unknown Donepezil [Aricept] 5 mg PO HS 09/19/18 09/19/18 Unknown traMADol [Ultram 50 MG tab] 50 mg PO Q8HR PRN 09/19/18 09/19/18 Unknown Previous Rx's Medication Instructions Recorded Last Taken Type AtorvaSTATin [Lipitor] 20 mg PO QHS #30 tablet 04/18/18 05/13/18 22:00 Rx Atenolol [Tenormin] 50 mg PO QDAY tablet 05/17/18 Unknown Rx ALBUTEROL NEB's [Proventil 0.083% 2.5 mg IH Q6HRT PRN nebu 10/05/18 Unknown Rx NEBS] Acetaminophen [Acetaminophen TAB] 650 mg PO Q4H PRN tablet 10/05/18 Unknown Rx Atenolol [Tenormin] 50 mg PO QDAY tablet 10/05/18 Unknown Rx AtorvaSTATin [Lipitor] 20 mg PO QHS tablet 10/05/18 Unknown Rx Donepezil [Aricept] 5 mg PO HS tablet 10/05/18 Unknown Rx Insulin Glargine [Lantus VIAL] 25 units SUB-Q QHS units 10/05/18 Unknown Rx Insulin Regular, Human [HumuLIN R] 0 units SUB-Q Q6HR units 10/05/18 Unknown Rx Isosorbide Dinitrate [Isordil 20 mg PO Q8HR tablet 10/05/18 Unknown Rx Titradose] Lansoprazole Solutab [Prevacid 30 mg FEEDTUBE BID tab.rapdis 10/05/18 Unknown Rx Solutab] Lipase/Protease/Amylase [Pancreaze 1 each FEEDTUBE PRN PRN capsule 10/05/[address],500 Unit] Loratadine [Claritin] 10 mg PO DAILY PRN tablet 10/05/18 Unknown Rx Min Oil/Petrolatum [Artificial 1 applic OU Q4H PRN tube 10/05/18 Unknown Rx Tears Ophth Oint] Petrolatum,White [Vaseline Lip 1 applic TP Q2H PRN tube 10/05/18 Unknown Rx Therapy] dexAMETHasone [Decadron] 4 mg IV Q12HR vial 10/05/18 Unknown Rx dexAMETHasone [Decadron] 4 mg IV Q24HR vial 10/05/18 Unknown Rx traMADol [Ultram 50 MG tab] 50 mg PO Q8H PRN tablet 10/05/18 Unknown Rx Allergies Allergy/AdvReac Type Severity Reaction Status Date / Time aspirin Allergy Hives Verified 09/19/18 14:52 codeine Allergy Itching Verified 09/19/18 14:52 ED Review of Systems ROS: Stated complaint: CARDIAC ARREST Other details as noted in HPI Comment: Unobtainable due to pts medical conditions ED Past Medical Hx - Past Medical History Hx Hypertension: Yes Hx CVA: Yes Hx Heart Attack/AMI: Yes Hx Congestive Heart Failure: No Hx Diabetes: Yes Hx Deep Vein Thrombosis: (unknown) Hx Pulmonary Embolism: No Hx GERD: Yes Hx Liver Disease: No Hx Renal Disease: No Hx Sickle Cell Disease: No Hx Arthritis: Yes Hx Seizures: No Hx Kidney Stones: No Hx Psychiatric Treatment: No Hx Asthma: Yes Hx COPD: No Hx Tuberculosis: No Hx Dementia: Yes Hx HIV: No Additional medical history: has had transfusions in the past, Gi bleed - Surgical History Hx Coronary Stent: Yes Hx Open Heart Surgery: No Hx Pacemaker: No Hx Internal Defibrillator: No Hx Cholecystectomy: No Hx Appendectomy: No Hx Breast Surgery: No Additional Surgical History: hysterectomy, bilateral knee surgery, - Social History Smoking Status: Never Smoker - Medications Home Medications: Home Medications Medication Instructions Recorded Confirmed Last Taken Type AtorvaSTATin [Lipitor] 20 mg PO QHS #30 tablet 04/18/18 09/19/18 05/13/18 22:00 Rx Atenolol [Tenormin] 50 mg PO QDAY tablet 05/17/18 09/19/18 Unknown Rx Acetaminophen [Acetaminophen TAB] 650 mg PO Q4HR PRN 09/19/18 09/19/18 Unknown History Donepezil [Aricept] 5 mg PO HS 09/19/18 09/19/18 Unknown History traMADol [Ultram 50 MG tab] 50 mg PO Q8HR PRN 09/19/18 09/19/18 Unknown History ALBUTEROL NEB's [Proventil 0.083% 2.5 mg IH Q6HRT PRN nebu 10/05/18 Unknown Rx NEBS] Acetaminophen [Acetaminophen TAB] 650 mg PO Q4H PRN tablet 10/05/18 Unknown Rx Atenolol [Tenormin] 50 mg PO QDAY tablet 10/05/18 Unknown Rx AtorvaSTATin [Lipitor] 20 mg PO QHS tablet 10/05/18 Unknown Rx Donepezil [Aricept] 5 mg PO HS tablet 10/05/18 Unknown Rx Insulin Glargine [Lantus VIAL] 25 units SUB-Q QHS units 10/05/18 Unknown Rx Insulin Regular, Human [HumuLIN R] 0 units SUB-Q Q6HR units 10/05/18 Unknown Rx Isosorbide Dinitrate [Isordil 20 mg PO Q8HR tablet 10/05/18 Unknown Rx Titradose] Lansoprazole Solutab [Prevacid 30 mg FEEDTUBE BID tab.rapdis 10/05/18 Unknown Rx Solutab] Lipase/Protease/Amylase [Pancreaze 1 each FEEDTUBE PRN PRN capsule 10/05/[address],500 Unit] Loratadine [Claritin] 10 mg PO DAILY PRN tablet 10/05/18 Unknown Rx Min Oil/Petrolatum [Artificial 1 applic OU Q4H PRN tube 10/05/18 Unknown Rx Tears Ophth Oint] Petrolatum,White [Vaseline Lip 1 applic TP Q2H PRN tube 10/05/18 Unknown Rx Therapy] dexAMETHasone [Decadron] 4 mg IV Q12HR vial 10/05/18 Unknown Rx dexAMETHasone [Decadron] 4 mg IV Q24HR vial 10/05/18 Unknown Rx traMADol [Ultram 50 MG tab] 50 mg PO Q8H PRN tablet 10/05/18 Unknown Rx ED Physical Exam - Other Other exam information: GENERAL: Patient in severe distress HEAD: Normocephalic, atraumatic HEART: no pulse LUNGS: Patient with airway in place and bilateral ronchi breath sounds ABDOMEN: Normal bowel sounds, abdomen soft, no tenderness MUSCULOSKELETAL: no redness, no swelling NEUROLOGIC: GCS 3 SKIN: Skin is warm and dry ED Medical Decision Making - Medical Decision Making Patient asystole on the monitor. Prolonged downtime approximately 30 minutes. CPR continued in the ER. Resuscitation per ACLS guidelines. Time of 726. Critical care attestation.: If time is entered above; I have spent that time in minutes in the direct care of this critically ill patient, excluding procedure time. ED Disposition Clinical Impression: Cardiac arrest Disposition: DC-20 Is pt being admited?: No Condition: Stable
== END 2018-11-30 11:40 ==
LOC: ED 07:27
DX: I46.9 Cardiac arrest, cause unspecified (principal); I11.0 Hypertensive heart disease with heart failure; I50.9 Heart failure, unspecified; I25.2 Old myocardial infarction; E11.9 Type 2 diabetes mellitus without complications; K21.9 Gastro-esophageal reflux disease without esophagitis; M19.90 Unspecified osteoarthritis, unspecified site; J45.909 Unspecified asthma, uncomplicated; F03.90 Unspecified dementia, unspecified severity, without behavioral disturbance, psychotic disturbance, mood disturbance, and anxiety; Z95.5 Presence of coronary angioplasty implant and graft; Z90.710 Acquired absence of both cervix and uterus; Z98.890 Other specified postprocedural states; Z88.6 Allergy status to analgesic agent; Z88.5 Allergy status to narcotic agent; Z79.4 Long term (current) use of insulin
CPT/HCPCS: 92950